=== PATIENT | male | born 1955 | race Caucasian/White ===

== ENCOUNTER 2020-02-24 12:13 | Inpatient (IN) | payer MEDICARE, OTHER ==
[2020-02-24] MEDS ORDERED: SODIUM CHLORIDE 0.9% 1,000 ML IV STA (12:56)
[2020-02-24] MEDS ORDERED: ONDANSETRON 4 MG/2 ML VIAL IVP STA (12:56)
[2020-02-24 13:30] LABS: Anisocytosis Slight; Basophils # (A) 0.1 k/uL (0-0.2); Basophils % (A) 1 %; Eosinophils # (A) 0.1 k/uL (0-0.7); Eosinophils % (A) 1 %; HCT 39.4 % (39.0-53.0); HGB 12.9 gm/dL (13.0-17.5); Lymphocytes % (A) 13 %; MCH 27.8 pg (25.0-35.0); MCHC 32.8 g/dL (31.0-37.0); MCV 84.7 fL (80.0-100.0); Mean Platelet Volume 8.9; Monocytes # (A) 0.3 k/uL (0-1.0); Monocytes % (A) 4 %; Neutrophils # (A) 6.3 k/uL (1.3-7.7); Neutrophils % (A) 81 %; Platelet Count 195 k/uL (150-450); RBC 4.65 m/uL (4.30-5.90); RDW 17.2 % (11.5-15.5); WBC 7.8 k/uL (3.8-10.6)
--- NOTE | 2020-02-24 13:37 | ED ---
Weakness HPI - General Chief complaint: Weakness Stated complaint: SOB/weak/not eating Time Seen by Provider: 02/24/20 12:15 Source: patient, family Mode of arrival: wheelchair Limitations: no limitations - History of Present Illness Initial comments: Patient is a 65-year-old male past medical history of hypertension who presents to the emergency department with reported weakness and anorexia. Patient states that he has not ate anything in 2 weeks. He's had a lack of appetite. Reports that every time he attempts to eat something, he feels nauseated and stops. He has been able to drink fluids and hold them down. Reports to minimal epigastric abdominal pain. No fevers or chills. Denies cough or hemoptysis. Denies chest pain or shortness of breath. Patient is a smoker. Reports that drinking twice a week. Patient does have a change to his voice. Patient states that this is new and he has never been scoped however review of the patient's chart demonstrates that he has a paralyzed vocal cord and has had an endoscopy. Patient also denies colonoscopy. Denies any rectal bleeding. Has had significant weight loss. No other alleviating, precipitating or modifying factors - Related Data Home Medications Medication Instructions Recorded Confirmed Omeprazole Magnesium [PriLOSEC OTC] 20 mg PO DAILY 02/24/20 02/24/20 Allergies Allergy/AdvReac Type Severity Reaction Status Date / Time No Known Allergies Allergy Verified 02/24/20 13:00 Review of Systems ROS Statement: Those systems with pertinent positive or pertinent negative responses have been documented in the HPI. ROS Other: All systems not noted in ROS Statement are negative. Past Medical History Past Medical History: Cancer, GERD/Reflux, Hypertension, Pneumonia Additional Past Medical History / Comment(s): paralyzed vocal cord, SKIN CANCER(FACE) History of Any Multi-Drug Resistant Organisms: None Reported Past Surgical History: Orthopedic Surgery Additional Past Surgical History / Comment(s): endoscopy, LT KNEE SCOPE, LT KNEE MENISCUS SX Past Anesthesia/Blood Transfusion Reactions: No Reported Reaction Past Psychological History: Anxiety Smoking Status: Current every day smoker Past Alcohol Use History: Occasional Past Drug Use History: None Reported - Past Family History Father Family Medical History: Congestive Heart Failure (CHF), Myocardial Infarction (IN) Mother Family Medical History: No Reported History Additional Family Medical History / Comment(s): MOM IS IN GOOD HEALTH AT AGE 85 General Exam Limitations: no limitations General appearance: alert, in no apparent distress, cachectic Head exam: Present: atraumatic, normocephalic Eye exam: Present: normal appearance, PERRL, EOMI. Absent: scleral icterus, conjunctival injection, periorbital swelling ENT exam: Present: normal exam, mucous membranes moist Neck exam: Present: normal inspection. Absent: tenderness, meningismus, lymphadenopathy Respiratory exam: Present: normal lung sounds bilaterally. Absent: respiratory distress, wheezes, rales, rhonchi, stridor Cardiovascular Exam: Present: regular rate, normal rhythm, normal heart sounds. Absent: systolic murmur, diastolic murmur, rubs, gallop, clicks GI/Abdominal exam: Present: soft, normal bowel sounds. Absent: distended, tenderness, guarding, rebound, rigid Extremities exam: Present: normal inspection, full ROM, normal capillary refill. Absent: tenderness, pedal edema, joint swelling, calf tenderness Back exam: Present: normal inspection Neurological exam: Present: alert, oriented X3, CN II-XII intact Psychiatric exam: Present: flat affect Skin exam: Present: warm, dry, intact, normal color, other (ecchymosis bilalteral dorsal forearms in differents stages of healing. ). Absent: rash Course Vital Signs 02/24/20 02/24/20 02/24/20 12:14 12:26 12:28 Temperature Pulse Rate 95 76 Pulse Rate [ Right Brachial] Respiratory 16 20 30 H Rate Blood Pressure 153/99 O2 Sat by Pulse 100 99 Oximetry 02/24/20 02/24/20 02/24/20 12:30 13:00 13:30 Temperature Pulse Rate 71 70 Pulse Rate [ Right Brachial] Respiratory 16 16 16 Rate Blood Pressure 171/106 163/95 O2 Sat by Pulse 100 99 99 Oximetry 02/24/20 02/24/20 02/24/20 14:00 14:30 15:00 Temperature Pulse Rate 69 69 70 Pulse Rate [ Right Brachial] Respiratory 16 16 16 Rate Blood Pressure 164/102 187/104 O2 Sat by Pulse 98 97 100 Oximetry 02/24/20 02/24/20 02/24/20 15:32 16:00 16:15 Temperature 97.7 F Pulse Rate 70 Pulse Rate [ 67 Right Brachial] Respiratory 18 18 Rate Blood Pressure 201/101 O2 Sat by Pulse 100 Oximetry 02/24/20 16:55 Temperature Pulse Rate Pulse Rate [ Right Brachial] Respiratory Rate Blood Pressure 172/87 O2 Sat by Pulse 100 Oximetry EKG Findings - EKG Comments: EKG Findings:: EKG demonstrates normal sinus rhythm with a ventricular rate 77. IA interval 144. QRS 88. QTC of 468. No acute ST segment elevations. Some ST depression in leads 2, 3, aVF as well as V4 through V6 Medical Decision Making - Medical Decision Making Upon arrival the patient is placed into room 1. A thorough history and physical exam was performed. Peripheral IV is established. Laboratory studies were conducted. The patient was given a liter bolus of normal saline followed by 75 mL per hour. Laboratory studies demonstrated a lactic acid 2.6. Sodium is 125. Potassium 3.2. Magnesium of 1.4. Potassium and magnesium are placed. Patient was sent for a chest x-ray which demonstrates spiculated right upper lobe nodule . Because of this the patient was sent over for a CT of his chest abdomen and pelvis which does demonstrate a suspicious spicula and right upper lobe nodule with and an additional smaller suspicious spicula did right upper lobe nodule. This resulted the patient. I did recommend admission for hydration and evaluation by pulmonology for which the patient did agree to. I discussed the case with Dr. Santoyo requested that Dr. Díaz be placed on consult. Patient was then transported to the floor in stable condition - Lab Data Result diagrams: 02/26/20 05:36 02/26/20 05:36 Lab Results 02/24/20 02/24/20 02/24/20 Range/Units 13:15 13:15 13:15 WBC 7.8 (3.8-10.6) k/uL RBC 4.65 (4.30-5.90) m/uL Hgb 12.9 L (13.0-17.5) gm/dL Hct 39.4 (39.0-53.0) % MCV 84.7 (80.0-100.0) fL MCH 27.8 (25.0-35.0) pg MCHC 32.8 (31.0-37.0) g/dL RDW 17.2 H (11.5-15.5) % Plt Count 195 (150-450) k/uL Neutrophils % 81 % Lymphocytes % 13 % Monocytes % 4 % Eosinophils % 1 % Basophils % 1 % Neutrophils # 6.3 (1.3-7.7) k/uL Lymphocytes # 1.0 (1.0-4.8) k/uL Monocytes # 0.3 (0-1.0) k/uL Eosinophils # 0.1 (0-0.7) k/uL Basophils # 0.1 (0-0.2) k/uL Anisocytosis Slight ESR (0-15) mm/hr PT 14.3 H (9.0-12.0) sec INR 1.4 H (<1.2) APTT 28.7 (22.0-30.0) sec Sodium (137-145) mmol/L Potassium (3.5-5.1) mmol/L Chloride (98-107) mmol/L Carbon Dioxide (22-30) mmol/L Anion Gap mmol/L BUN (9-20) mg/dL Creatinine (0.66-1.25) mg/dL Est GFR (CKD-EPI)AfAm (>60 ml/min/1.73 sqM) Est GFR (CKD-EPI)NonAf (>60 ml/min/1.73 sqM) Glucose (74-99) mg/dL Lactic Ac Sepsis Rflx Plasma Lactic Acid Ivan (0.7-2.0) mmol/L Calcium (8.4-10.2) mg/dL Magnesium (1.6-2.3) mg/dL Total Bilirubin (0.2-1.3) mg/dL AST (17-59) U/L ALT (4-49) U/L Alkaline Phosphatase (38-126) U/L Creatine Kinase (55-170) U/L Troponin I (0.000-0.034) ng/mL C-Reactive Protein (<10.0) mg/L NT-Pro-B Natriuret Pep pg/mL Total Protein (6.3-8.2) g/dL Albumin (3.5-5.0) g/dL Amylase (30-110) U/L Lipase (23-300) U/L TSH (0.465-4.680) mIU/L Urine Color Yellow Urine Appearance Clear (Clear) Urine pH 6.0 (5.0-8.0) Ur Specific [place] 1.050 H (1.001-1.035) Urine Protein Negative (Negative) Urine Glucose (UA) Negative (Negative) Urine Ketones 1+ H (Negative) Urine Blood Negative (Negative) Urine Nitrite Negative (Negative) Urine Bilirubin Negative (Negative) Urine Urobilinogen 4.0 (<2.0) mg/dL Ur Leukocyte Esterase Negative (Negative) 02/24/20 02/24/20 02/24/20 Range/Units 13:15 13:15 13:15 WBC (3.8-10.6) k/uL RBC (4.30-5.90) m/uL Hgb (13.0-17.5) gm/dL Hct (39.0-53.0) % MCV (80.0-100.0) fL MCH (25.0-35.0) pg MCHC (31.0-37.0) g/dL RDW (11.5-15.5) % Plt Count (150-450) k/uL Neutrophils % % Lymphocytes % % Monocytes % % Eosinophils % % Basophils % % Neutrophils # (1.3-7.7) k/uL Lymphocytes # (1.0-4.8) k/uL Monocytes # (0-1.0) k/uL Eosinophils # (0-0.7) k/uL Basophils # (0-0.2) k/uL Anisocytosis ESR (0-15) mm/hr PT (9.0-12.0) sec INR (<1.2) APTT (22.0-30.0) sec Sodium 125 L (137-145) mmol/L Potassium 3.2 L (3.5-5.1) mmol/L Chloride 96 L (98-107) mmol/L Carbon Dioxide 16 L (22-30) mmol/L Anion Gap 13 mmol/L BUN 13 (9-20) mg/dL Creatinine 0.85 (0.66-1.25) mg/dL Est GFR (CKD-EPI)AfAm >90 (>60 ml/min/1.73 sqM) Est GFR (CKD-EPI)NonAf >90 (>60 ml/min/1.73 sqM) Glucose 104 H (74-99) mg/dL Lactic Ac Sepsis Rflx Plasma Lactic Acid Ivan 2.6 H* (0.7-2.0) mmol/L Calcium 9.1 (8.4-10.2) mg/dL Magnesium 1.4 L (1.6-2.3) mg/dL Total Bilirubin 1.8 H (0.2-1.3) mg/dL AST 33 (17-59) U/L ALT 21 (4-49) U/L Alkaline Phosphatase 101 (38-126) U/L Creatine Kinase 38 L (55-170) U/L Troponin I 0.014 (0.000-0.034) ng/mL C-Reactive Protein (<10.0) mg/L NT-Pro-B Natriuret Pep pg/mL Total Protein 7.1 (6.3-8.2) g/dL Albumin 3.3 L (3.5-5.0) g/dL Amylase (30-110) U/L Lipase (23-300) U/L TSH 0.754 (0.465-4.680) mIU/L Urine Color Urine Appearance (Clear) Urine pH (5.0-8.0) Ur Specific [place] (1.001-1.035) Urine Protein (Negative) Urine Glucose (UA) (Negative) Urine Ketones (Negative) Urine Blood (Negative) Urine Nitrite (Negative) Urine Bilirubin (Negative) Urine Urobilinogen (<2.0) mg/dL Ur Leukocyte Esterase (Negative) 02/24/20 02/24/20 02/24/20 Range/Units 13:15 13:15 13:15 WBC (3.8-10.6) k/uL RBC (4.30-5.90) m/uL Hgb (13.0-17.5) gm/dL Hct (39.0-53.0) % MCV (80.0-100.0) fL MCH (25.0-35.0) pg MCHC (31.0-37.0) g/dL RDW (11.5-15.5) % Plt Count (150-450) k/uL Neutrophils % % Lymphocytes % % Monocytes % % Eosinophils % % Basophils % % Neutrophils # (1.3-7.7) k/uL Lymphocytes # (1.0-4.8) k/uL Monocytes # (0-1.0) k/uL Eosinophils # (0-0.7) k/uL Basophils # (0-0.2) k/uL Anisocytosis ESR 46 H (0-15) mm/hr PT (9.0-12.0) sec INR (<1.2) APTT (22.0-30.0) sec Sodium (137-145) mmol/L Potassium (3.5-5.1) mmol/L Chloride (98-107) mmol/L Carbon Dioxide (22-30) mmol/L Anion Gap mmol/L BUN (9-20) mg/dL Creatinine (0.66-1.25) mg/dL Est GFR (CKD-EPI)AfAm (>60 ml/min/1.73 sqM) Est GFR (CKD-EPI)NonAf (>60 ml/min/1.73 sqM) Glucose (74-99) mg/dL Lactic Ac Sepsis Rflx Plasma Lactic Acid Ivan (0.7-2.0) mmol/L Calcium (8.4-10.2) mg/dL Magnesium (1.6-2.3) mg/dL Total Bilirubin (0.2-1.3) mg/dL AST (17-59) U/L ALT (4-49) U/L Alkaline Phosphatase (38-126) U/L Creatine Kinase (55-170) U/L Troponin I (0.000-0.034) ng/mL C-Reactive Protein 32.1 H (<10.0) mg/L NT-Pro-B Natriuret Pep 2540 pg/mL Total Protein (6.3-8.2) g/dL Albumin (3.5-5.0) g/dL Amylase 71 (30-110) U/L Lipase 395 H (23-300) U/L TSH (0.465-4.680) mIU/L Urine Color Urine Appearance (Clear) Urine pH (5.0-8.0) Ur Specific [place] (1.001-1.035) Urine Protein (Negative) Urine Glucose (UA) (Negative) Urine Ketones (Negative) Urine Blood (Negative) Urine Nitrite (Negative) Urine Bilirubin (Negative) Urine Urobilinogen (<2.0) mg/dL Ur Leukocyte Esterase (Negative) 02/24/20 Range/Units 13:53 WBC (3.8-10.6) k/uL RBC (4.30-5.90) m/uL Hgb (13.0-17.5) gm/dL Hct (39.0-53.0) % MCV (80.0-100.0) fL MCH (25.0-35.0) pg MCHC (31.0-37.0) g/dL RDW (11.5-15.5) % Plt Count (150-450) k/uL Neutrophils % % Lymphocytes % % Monocytes % % Eosinophils % % Basophils % % Neutrophils # (1.3-7.7) k/uL Lymphocytes # (1.0-4.8) k/uL Monocytes # (0-1.0) k/uL Eosinophils # (0-0.7) k/uL Basophils # (0-0.2) k/uL Anisocytosis ESR (0-15) mm/hr PT (9.0-12.0) sec INR (<1.2) APTT (22.0-30.0) sec Sodium (137-145) mmol/L Potassium (3.5-5.1) mmol/L Chloride (98-107) mmol/L Carbon Dioxide (22-30) mmol/L Anion Gap mmol/L BUN (9-20) mg/dL Creatinine (0.66-1.25) mg/dL Est GFR (CKD-EPI)AfAm (>60 ml/min/1.73 sqM) Est GFR (CKD-EPI)NonAf (>60 ml/min/1.73 sqM) Glucose (74-99) mg/dL Lactic Ac Sepsis Rflx Y Plasma Lactic Acid Ivan (0.7-2.0) mmol/L Calcium (8.4-10.2) mg/dL Magnesium (1.6-2.3) mg/dL Total Bilirubin (0.2-1.3) mg/dL AST (17-59) U/L ALT (4-49) U/L Alkaline Phosphatase (38-126) U/L Creatine Kinase (55-170) U/L Troponin I (0.000-0.034) ng/mL C-Reactive Protein (<10.0) mg/L NT-Pro-B Natriuret Pep pg/mL Total Protein (6.3-8.2) g/dL Albumin (3.5-5.0) g/dL Amylase (30-110) U/L Lipase (23-300) U/L TSH (0.465-4.680) mIU/L Urine Color Urine Appearance (Clear) Urine pH (5.0-8.0) Ur Specific [place] (1.001-1.035) Urine Protein (Negative) Urine Glucose (UA) (Negative) Urine Ketones (Negative) Urine Blood (Negative) Urine Nitrite (Negative) Urine Bilirubin (Negative) Urine Urobilinogen (<2.0) mg/dL Ur Leukocyte Esterase (Negative) Disposition Clinical Impression: Hyponatremia, Hypokalemia, Hypomagnesemia, Weight loss, Anorexia Disposition: ADMITTED IP TO THIS [facility] Condition: Stable Is patient prescribed a controlled substance at d/c from ED?: No Decision to Admit Reason: Admit from EC Decision Date: 02/24/20 Decision Time: 14:42
[2020-02-24 13:40] LABS: ALT 21 U/L (4-49); AST 33 U/L (17-59); African American GFR (CKD) >90 (>60 ml/min/1.73 sqM); Albumin 3.3 g/dL (3.5-5.0); Alkaline Phosphatase 101 U/L (38-126); Anion Gap 13 mmol/L; Blood Urea Nitrogen 13 mg/dL (9-20); Calcium 9.1 mg/dL (8.4-10.2); Carbon Dioxide 16 mmol/L (22-30); Chloride 96 mmol/L (98-107); Creatine Kinase 38 U/L (55-170); Glucose 104 mg/dL (74-99); Magnesium 1.4 mg/dL (1.6-2.3); Non-African American GFR(CKD) >90 (>60 ml/min/1.73 sqM); Potassium 3.2 mmol/L (3.5-5.1); Sodium 125 mmol/L (137-145); Total Bilirubin 1.8 mg/dL (0.2-1.3); Total Protein 7.1 g/dL (6.3-8.2)
--- NOTE | 2020-02-24 13:48 | XR ---
EXAMINATION TYPE: XR chest 2V DATE OF EXAM: 02/24/2020 COMPARISON: Chest x-ray September 08, 2015 HISTORY: Weakness. TECHNIQUE: Frontal and lateral views of the chest are obtained. FINDINGS: There is background chronic emphysematous change redemonstrated. Suggestion of new focal s carlike opacity right upper lobe. No pleural effusion or pneumothorax seen bilaterally. The cardiac silhouette size is upper limits of normal. The osseous structures are demineralized. IMPRESSION: Chronic changes with possible new spiculated right upper lobe nodule. Nonemergent CT fol low-up is advised.
[2020-02-24 14:00] LABS: INR 1.4 (<1.2); Partial Thromboplastin Time 28.7 sec (22.0-30.0); Prothrombin Time 14.3 sec (9.0-12.0)
[2020-02-24] MEDS ORDERED: POTASSIUM CHLORIDE ER 20 MEQ TAB.ER PO STA (14:30)
[2020-02-24] MEDS ORDERED: MAGNESIUM SULFATE-D5W PMX 1 GM in DEXTROSE/WATER 1 100ML.BAG IVPB ONE (14:30)
--- NOTE | 2020-02-24 14:41 | CT ---
EXAMINATION TYPE: CT ChestAbdPelvis w con DATE OF EXAM: 02/24/2020 COMPARISON: Same day chest x-ray. HISTORY: Shortness of breath, weakness, weight loss, not eating, and nausea. CT DLP: 725.8 mGycm. Automated Exposure Control for Dose Reduction was Utilized. CONTRAST: CT scan of the thorax, abdomen and pelvis is performed without oral but with IV Contrast, patient inj ected with 100 mL of Isovue 300. FINDINGS: LUNGS: Corresponding to x-ray there is confirmation of 2.0 x 1.2 cm spiculated right upper lobe nodul e axial image 21. There is additional suspicious spiculated 7 x 6 mm posterior inferior right upper l obe nodule axial image 26 just above the fissure. There is suspicious spiculated 1.3 x 0.9 cm spicula lziet anterior inferior right upper lobe nodule axial image 36 just above minor fissure. Background mil d emphysematous change. No suspicious consolidation. No pleural effusion or pneumothorax. MEDIASTINUM: There are no greater than 1 cm hilar or mediastinal lymph nodes. No cardiomegaly or pe ricardial effusion is seen. Ectatic ascending aorta up to 3.6 cm in diameter axial image 38. Coronar y artery calcifications present which is noted marker for underlying coronary artery disease. LIVER/GB: Liver is heterogeneously hypodense consistent with marked fatty infiltration. A few thin-wa lled cysts in the hepatic dome left liver lobe flow present axial image 50 and 52. PANCREAS: No significant abnormality is seen. SPLEEN: No significant abnormality is seen. ADRENALS: Some thickening to both adrenal glands with slightly more suspicious right-sided 1.7 x 1.1 cm nodularity axial image 54, Hounsfield units average 20. KIDNEYS: Symmetric cortical medullary uptake and excretion without hydronephrosis seen bilaterally. BOWEL: Suboptimal evaluation bowel without enteric contrast. Stomach poorly distended and thus subopt imally evaluated. No suspicious small or large bowel dilatation. Sigmoid colonic diverticula without CT evidence for acute diverticulitis. GENITAL ORGANS: Upper limits of normal in size. LYMPH NODES: No greater than 1cm abdominal or pelvic lymph nodes are appreciated. OSSEOUS STRUCTURES: Underlying scoliotic curvature. There are suspected healing or healed anterolater al right fourth and fifth rib fractures on axial images 30 and 37 respectively. Similar healing or he aled lateral mid to lower rib fractures identified images 6 through 11 axial images 40, 45, 48, 58, a nd 60 along with 63 OTHER: Moderate to severe mixed plaque abdominal aorta extending into branch vessels. IMPRESSION: 1. Confirmation of suspicious spiculated right upper lobe nodule as suspected on x-ray. Additional sm aller suspicious spiculated right upper lobe nodules noted. Neoplasm cannot be excluded PET/CT follow -up advised. Nonspecific small right adrenal mass or nodule. 2. Healing or healed bilateral rib fractures, correlate clinically.
[2020-02-24] MEDS ORDERED: NALOXONE 0.4 MG/ML 1 ML VIAL IV PRN (14:42)
[2020-02-24] MEDS ORDERED: ONDANSETRON 4 MG/2 ML VIAL IVP PRN (14:42)
[2020-02-24] MEDS: SODIUM CHLORIDE 0.9% 1,000 ML IV SCH (15:41)
[2020-02-24] MEDS ORDERED: PNEUMOCOCCAL VACC-PNEUMOVAX 23 25 MCG/0.5 ML VIAL IM ONE (16:19)
[2020-02-24] MEDS ORDERED: hydrALAZINE HCL 20 MG/ML 1 ML VIAL IVP STA (16:29)
[2020-02-24 19:39] LABS: Appearance,Urine Clear (Clear); Bilirubin,Urine Negative (Negative); Blood,Urine Negative (Negative); Color,Urine Yellow; Glucose,Urine (UA) Negative (Negative); Ketones,Urine 1+ (Negative); Leukocyte Esterase,Urine Negative (Negative); Nitrite,Urine Negative (Negative); Protein,Urine Negative (Negative)
[2020-02-24] MEDS ORDERED: HYDROmorphone 0.5 MG/0.5 ML SYRINGE IVP PRN (21:10)
[2020-02-24] MEDS ORDERED: HYDROcodone/APAP 5-325MG 1 EACH TAB PO PRN (21:10)
[2020-02-24] MEDS ORDERED: ALPRAZolam 0.25 MG TAB PO PRN (21:10)
[2020-02-24] MEDS: CALCIUM CARBONATE 500 MG CHEWABLE PO SCH (22:20)
[2020-02-24 22:26] LABS: C Reactive Protein 32.1 mg/L (<10.0)
--- NOTE | 2020-02-25 00:22 | HP ---
HISTORY AND PHYSICAL DATE OF SERVICE: 02/24/2020 CHIEF COMPLAINT: Weakness. 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 The patient apparently was not eating for several days and the patient had weakness and anorexia. The patient lost significant amount of weight and the patient was taken to [facility] and admitted for further evaluation and treatment. The patient had nausea on trying to eat. The patient was found to be extremely emaciated and multiple evaluations including chest x-ray and the chest, abdomen and pelvis CAT scan showed suspicious spiculated right upper lobe nodule and spiculated right upper lobe nodule was noted. Healed bilateral rib fractures also noted. There is no history of any fever, rigors. No history of headache, loss of consciousness, seizures at this time. PAST MEDICAL HISTORY: History of cancer, GERD, hypertension, pneumonia, paralyzed vocal cord, history of anxiety. MEDICATIONS: Medications prior to admission include omeprazole. ALLERGIES: None. FAMILY HISTORY: History of CHF, myocardial infarction in the family. SOCIAL HISTORY: History of smoking. History of alcohol intake. REVIEW OF SYSTEMS: ENT: No diminished hearing or diminished vision. CARDIOVASCULAR SYSTEM: No angina. RESPIRATORY SYSTEM: As mentioned earlier. GI: As mentioned earlier. : No dysuria. NERVOUS SYSTEM: No numbness or weakness. ALLERGY/IMMUNOLOGY: No asthma or hayfever. MUSCULOSKELETAL: As mentioned earlier. HEMATOLOGY/ONCOLOGY: No history of anemia. ENDOCRINE: No history of diabetes or hypothyroidism. CONSTITUTIONAL: As mentioned earlier. DERMATOLOGY: Negative. RHEUMATOLOGY: Negative. PSYCHIATRY: As mentioned earlier. PHYSICAL EXAMINATION: The patient is alert and oriented x3. Pulse 67, blood pressure 131/80, respiration 18, temperature 97.7, pulse ox 100% on room air. HEENT: Conjunctivae normal. NECK: No jugular venous distention. CARDIOVASCULAR: S1, S2 muffled. RESPIRATORY: Breath sounds diminished at the bases. A few scattered rhonchi and crackles. ABDOMEN: Soft. Nontender. LEGS: No edema. No swelling. NERVOUS SYSTEM: Diffusely emaciated. SKIN: No ulcer, rash or bleeding. JOINTS: No active deforming arthropathy. LABS: WBC 7.8, hemoglobin 12.9. INR 1.4. Sodium 125, potassium 3.2. Plasma lactic acid 2.6. ASSESSMENT: 1. Anorexia, weight loss and diffuse weakness, rule out malignancy. 2. Hyponatremia. 3. Hypokalemia. 4. Severe dehydration. 5. Elevated lactic acid. 6. Elevated bilirubin. 7. Hypomagnesemia. 8. Anemia, normocytic, probably nutritional origin. 9. Possibly right upper lobe spiculated nodule, rule out primary or metastatic malignancy. 10.History of gastroesophageal reflux disease. 11.Hypertension. 12.History of pneumonia. 13.History of paralyzed vocal cord. 14.History of skin cancer, face. 15.History of anxiety. 16.History of nicotine dependence. 17.FULL CODE. RECOMMENDATIONS AND DISCUSSION: This 65-year-old gentleman presented with multiple complex medical issues, we will monitor the patient closely. Continue the current medications. Continue symptomatic treatment. Otherwise at this time I would obtain pulmonary and as well as gastroenterology consultation for evaluation including bronchoscopy or biopsies. Otherwise, overall prognosis extremely guarded because of multiple complex medical issues. Further recommendations to follow. I also recommend the patient to follow up with primary physician in the outpatient setting. DVT prophylaxis. Symptomatic treatment also will be provided. MMODL / IJN: [id number] /
[2020-02-25] MEDS ORDERED: NALOXONE 0.4 MG/ML 1 ML VIAL IV PRN (02:08)
[2020-02-25] MEDS ORDERED: ONDANSETRON 4 MG/2 ML VIAL IVP PRN (02:09)
[2020-02-25] MEDS: SODIUM CHLORIDE 0.9% 1,000 ML IV SCH ×2 (05:55→19:19)
[2020-02-25 06:47] LABS: Anisocytosis Slight; Basophils % (A) 1 %; Eosinophils # (A) 0.1 k/uL (0-0.7); Eosinophils % (A) 1 %; HCT 33.7 % (39.0-53.0); Lymphocytes # (A) 1.3 k/uL (1.0-4.8); Lymphocytes % (A) 19 %; MCH 27.6 pg (25.0-35.0); MCHC 32.7 g/dL (31.0-37.0); MCV 84.5 fL (80.0-100.0); Mean Platelet Volume 8.4; Monocytes # (A) 0.3 k/uL (0-1.0); Monocytes % (A) 5 %; Neutrophils # (A) 4.8 k/uL (1.3-7.7); Neutrophils % (A) 73 %; Platelet Count 156 k/uL (150-450); RBC 3.99 m/uL (4.30-5.90); RDW 17.3 % (11.5-15.5); WBC 6.6 k/uL (3.8-10.6)
[2020-02-25] MEDS: NICOTINE 14MG/24HR PATCH TRANSDERM SCH (09:02)
[2020-02-25] MEDS: HEPARIN SODIUM,PORCINE 5,000 UNIT/ML 1 ML VIAL SQ SCH ×2 (09:02→21:19)
[2020-02-25 10:00] LABS: African American GFR (CKD) 122.3 (60.0-200.0); Anion Gap 12.2 mmol/L (4.00-12.00); BUN/Creat Ratio 16.67 Ratio (12.00-20.00); Calcium 8.3 mg/dL (8.7-10.3); Carbon Dioxide 15.8 mmol/L (21.6-31.8); Non-African American GFR(CKD) 105.5 (60.0-200.0); Potassium 3.4 mmol/L (3.5-5.5)
--- NOTE | 2020-02-25 11:30 | P.CONS ---
History of Present Illness - Reason for Consult Consult date: 02/25/20 CT with lung nodules, anorexia, weight loss Requesting physician: Corwin Santoyo - Chief Complaint Anorexia and weight loss - History of Present Illness Mr. Ryan is a 65-year-old male we've been asked to see in regards to rather sudden onset loss of appetite, early CT and weight loss. Patient states that his symptoms started about 2-3 weeks ago, associated with abdominal discomfort, was of a sudden onset, has persisted, denies any injury or illness prior. He denies fevers, chills, painful swallowing, difficulty swallowing, he states fluctuation in the consistency of his stool, denies black, bloody or mucus stool, he does have a history of smoking but denies shortness of breath, hemoptysis, new or unusual cough. No circulatory problems or significant cardiac history. He does have a history of EtOH when he was young, currently he drinks every other day. He is not in any pain while he is at rest Review of Systems 14 point review of systems is negative except as stated in HPI Past Medical History Past Medical History: Cancer, GERD/Reflux, Hypertension, Pneumonia Additional Past Medical History / Comment(s): paralyzed vocal cord, SKIN CANCER(FACE) History of Any Multi-Drug Resistant Organisms: None Reported Past Surgical History: Orthopedic Surgery Additional Past Surgical History / Comment(s): endoscopy, LT KNEE SCOPE, LT KNEE MENISCUS SX Past Anesthesia/Blood Transfusion Reactions: No Reported Reaction Past Psychological History: Anxiety Smoking Status: Current every day smoker Past Alcohol Use History: Occasional Past Drug Use History: None Reported - Past Family History Father Family Medical History: Congestive Heart Failure (CHF), Myocardial Infarction ([place]) Additional Family Medical History / Comment(s): Father at the age of 73 from "heart problems." Pt unsure what type of heart problems. Mother Family Medical History: No Reported History Additional Family Medical History / Comment(s): MOM IS IN GOOD HEALTH AT AGE 85 Medications and Allergies Home Medications Medication Instructions Recorded Confirmed Type Omeprazole Magnesium [PriLOSEC OTC] 20 mg PO DAILY 02/24/20 02/24/20 History Allergies Allergy/AdvReac Type Severity Reaction Status Date / Time No Known Allergies Allergy Verified 02/24/20 13:00 Physical Exam Vitals: Vital Signs Temp Pulse Pulse Pulse Resp BP BP 02/25/20 04:58 98 F 78 19 156/72 02/24/20 21:19 97.7 F 54 L 16 136/86 02/24/20 17:36 67 18 131/80 02/24/20 16:55 172/87 02/24/20 16:15 201/101 02/24/20 16:00 67 18 02/24/20 15:32 97.7 F 70 18 02/24/20 15:00 70 16 187/104 02/24/20 14:30 69 16 164/102 02/24/20 14:00 69 16 02/24/20 13:30 16 163/95 02/24/20 13:00 70 16 171/106 02/24/20 12:30 71 16 02/24/20 12:28 76 30 H 02/24/20 12:26 20 02/24/20 12:14 95 16 153/99 Pulse Ox 02/25/20 04:58 100 02/24/20 21:19 100 02/24/20 17:36 100 02/24/20 16:55 100 02/24/20 16:15 02/24/20 16:00 02/24/20 15:32 100 02/24/20 15:00 100 02/24/20 14:30 97 02/24/20 14:00 98 02/24/20 13:30 99 02/24/20 13:00 99 02/24/20 12:30 100 02/24/20 12:28 99 02/24/20 12:26 02/24/20 12:14 100 Intake and Output 02/24/20 02/25/20 02/25/20 22:59 06:59 14:59 Intake Total 120 Balance 120 Intake: Oral 120 Other: Voiding Method Urinal Urinal Urinal # Voids 1 0 Weight 71.668 kg - Constitutional Looks much older than stated age General appearance: cooperative, no acute distress, thin - EENT Eyes: anicteric sclerae, EOMI ENT: hearing grossly normal, normal oropharynx - Neck Neck: no lymphadenopathy - Respiratory Respiratory: bilateral: CTA - Cardiovascular Rhythm: regular Heart sounds: normal: S1, S2 Abnormal Heart Sounds: no systolic murmur, no diastolic murmur, no rub, no S3 Ga llop, no S4 Gallop, no click, no other leg Peripheral Edema: bilateral: None - Gastrointestinal Pain with palpation of the abdomen is more when touching the inferior aspect of the rib cage on both sides General gastrointestinal: no absent bowel sounds, no decreased bowel sounds, no distended, no hepatomegaly, no hyperactive bowel sounds, normal bowel sounds, no organomegaly, no rigid, no scaphoid, soft, no splenomegaly, no tenderness, no umbilical hernia, no ventral hernia - Neurologic Neurologic: CNII-XII intact - Musculoskeletal Musculoskeletal: generalized weakness - Psychiatric Psychiatric: A&O x's 3, appropriate affect, intact judgment & insight Results CBC & Chem 7: 02/25/20 06:08 02/25/20 06:08 Labs: Abnormal Lab Results - Last 24 Hours (Table) 02/24/20 02/24/20 02/24/20 Range/Units 13:15 13:15 13:15 RBC (4.30-5.90) m/uL Hgb 12.9 L (13.0-17.5) gm/dL Hct (39.0-53.0) % RDW 17.2 H (11.5-15.5) % ESR (0-15) mm/hr PT 14.3 H (9.0-12.0) sec INR 1.4 H (<1.2) Sodium (137-145) mmol/L Potassium (3.5-5.1) mmol/L Chloride (98-107) mmol/L Carbon Dioxide (22-30) mmol/L Anion Gap (4.00-12.00) mmol/L Glucose (74-99) mg/dL Plasma Lactic Acid Ivan (0.7-2.0) mmol/L Calcium (8.7-10.3) mg/dL Magnesium (1.6-2.3) mg/dL Total Bilirubin (0.2-1.3) mg/dL Creatine Kinase (55-170) U/L C-Reactive Protein (<10.0) mg/L Albumin (3.5-5.0) g/dL Lipase (23-300) U/L Ur Specific [place] 1.050 H (1.001-1.035) Urine Ketones 1+ H (Negative) 02/24/20 02/24/20 02/24/20 Range/Units 13:15 13:15 13:15 RBC (4.30-5.90) m/uL Hgb (13.0-17.5) gm/dL Hct (39.0-53.0) % RDW (11.5-15.5) % ESR 46 H (0-15) mm/hr PT (9.0-12.0) sec INR (<1.2) Sodium 125 L (137-145) mmol/L Potassium 3.2 L (3.5-5.1) mmol/L Chloride 96 L (98-107) mmol/L Carbon Dioxide 16 L (22-30) mmol/L Anion Gap (4.00-12.00) mmol/L Glucose 104 H (74-99) mg/dL Plasma Lactic Acid Ivan 2.6 H* (0.7-2.0) mmol/L Calcium (8.7-10.3) mg/dL Magnesium 1.4 L (1.6-2.3) mg/dL Total Bilirubin 1.8 H (0.2-1.3) mg/dL Creatine Kinase 38 L (55-170) U/L C-Reactive Protein (<10.0) mg/L Albumin 3.3 L (3.5-5.0) g/dL Lipase (23-300) U/L Ur Specific [place] (1.001-1.035) Urine Ketones (Negative) 02/24/20 02/25/20 02/25/20 Range/Units 13:15 06:08 06:08 RBC 3.99 L (4.30-5.90) m/uL Hgb 11.0 L (13.0-17.5) gm/dL Hct 33.7 L (39.0-53.0) % RDW 17.3 H (11.5-15.5) % ESR (0-15) mm/hr PT (9.0-12.0) sec INR (<1.2) Sodium 129 L (137-145) mmol/L Potassium 3.4 L (3.5-5.1) mmol/L Chloride (98-107) mmol/L Carbon Dioxide 15.8 L (22-30) mmol/L Anion Gap 12.20 H (4.00-12.00) mmol/L Glucose (74-99) mg/dL Plasma Lactic Acid Ivan (0.7-2.0) mmol/L Calcium 8.3 L (8.7-10.3) mg/dL Magnesium (1.6-2.3) mg/dL Total Bilirubin (0.2-1.3) mg/dL Creatine Kinase (55-170) U/L C-Reactive Protein 32.1 H (<10.0) mg/L Albumin (3.5-5.0) g/dL Lipase 395 H (23-300) U/L Ur Specific [place] (1.001-1.035) Urine Ketones (Negative) CT scan - abdomen: report reviewed CT scan - chest: report reviewed CT scan - pelvis: report reviewed Assessment and Plan (1) Anorexia Current Visit: Yes Status: Acute Priority: High Code(s): R63.0 - ANOREXIA SNOMED Code(s): 27827295 (2) Weight loss Current Visit: Yes Status: Acute Priority: High Code(s): R63.4 - ABNORMAL WEIGHT LOSS SNOMED Code(s): 15347912 (3) Pulmonary nodule Current Visit: Yes Status: Acute Code(s): R91.1 - SOLITARY PULMONARY NODULE SNOMED Code(s): 641978250 (4) Adrenal nodule Current Visit: Yes Status: Acute Priority: High Code(s): E27.8 - OTHER SPECIFIED DISORDERS OF ADRENAL GLAND SNOMED Code(s): 455816416 Plan: Unclear at this time what the origin of patient's sudden onset gastrointestinal symptoms. Typically with malignancy the onset is more insidious. Agree with the Pulmonary consult. Abnormal bone findings-NM bone scan ordered. PSA ordered. Plan for PET scan outpatient to further evaluate lung and adrenal nodules. Doctor attests: I performed a history and physical examination of this patient, developed impression and plan of care. Discussed with dictator. I agree with dictators note, documented as a scribe.
[2020-02-25 14:40] LABS: Albumin 2.9 g/dL (3.80-4.90); Albumin/Globulin Ratio 1.04 (1.60-3.17); Bilirubin, Conjugated 0.6 mg/dL (0.20-0.40); Bilirubin,Unconjugated 0.7 mg/dL; Globulin 2.8 g/dL (1.6-3.3); Total Bilirubin 1.3 mg/dL (0.3-1.2); Total Protein 5.7 g/dL (6.2-8.2)
[2020-02-25] MEDS ORDERED: POTASSIUM CHLORIDE ER 20 MEQ TAB.ER PO STA (15:11)
--- NOTE | 2020-02-25 15:12 | P.GSCN ---
<Jennifer Hooker - Last Filed: 02/25/20 14:52> History of Present Illness Consult date: 02/25/20 History of present illness: CHIEF COMPLAINT: Weakness and not eating HISTORY OF PRESENT ILLNESS: This is a 65-year-old male with a known history of GERD, hypertension, nicotine dependence and paralyzed vocal cords. Patient presents to the emergency room with generalized weakness and anorexia for 2 weeks. Patient has not been able to eat anything. Every times he tries to eat he feels nauseated and stops. He is able to drink some fluids. He complains of epigastric abdominal pain. Denies any vomiting. Denies any change in bowel habits. Denies ever having an EGD or colonoscopy. He denies any difficulty with swallowing or pain with swallowing. Patient had computed tomography scan of the chest abdomen and pelvis report states suspicious spiculated right upper lobe nodule. Additional smaller suspicious spiculated right upper lobe nodules noted. Neoplasm cannot be excluded. Nonspecific small right adrenal mass or nodule. Healing or healed bilateral rib fractures. Patient is also being evaluated by oncology who have ordered a bone scan. PAST MEDICAL HISTORY: See list. PAST SURGICAL HISTORY: See list. MEDICATIONS: See list. ALLERGIES: See list. SOCIAL HISTORY: No illicit drug use. REVIEW OF SYSTEMS: CONSTITUTIONAL: Denies fever or chills. HEENT: Denies blurred vision, vision changes, or eye pain. Denies hemoptysis CARDIOVASCULAR: Denies chest pain or pressure. RESPIRATORY: No shortness of breath. GASTROINTESTINAL: See HPI for pertinent findings HEMATOLOGIC: Denies bleeding disorders. GENITOURINARY: Denies any blood in urine or increased urinary frequency. SKIN: Denies pruitis. Denies rash. PHYSICAL EXAM: VITAL SIGNS: Reviewed GENERAL: in no acute distress. Patient looks much older than stated age. HEENT: No sclera icterus. Extraocular movements grossly intact. Moist buccal mucosa. Head is atraumatic, normocephalic. No nasal drainage. ABDOMEN: Soft. Epigastric tenderness with palpation. nondistended NEUROLOGIC: Alert and oriented. Cranial nerves II through XII grossly intact. LABORATORY DATA: WBC 6.6 hemoglobin 11.0 platelets 156 sodium 129 potassium 3.4 creatinine 0.6. lactic acid 2.6 down to 1.3. magnesium 1.4 Total bilirubin 1.3 AST 30 ALT 21 lipase 395 IMAGING: CT chest abdomen and pelvis states suspicious spiculated right upper lobe nodule. Additional smaller suspicious spiculated right upper lobe nodules noted. Neoplasm cannot be excluded. Nonspecific small right adrenal mass or nodule. Healing or healed bilateral rib fractures. ASSESSMENT: 1. Anorexia, diffuse weakness and nausea 2. Epigastric abdominal pain 3. Right upper lobe pulmonary nodules and adrenal nodule 4. History of nicotine dependence 5. Hypomagnesemia and hypokalemia PLAN: -Agree with oncology and pulmonary consults -Further recommendations forthcoming from surgeon Physician Exhibit Artist note has been reviewed by physician. Signing provider agrees with the documented findings, assessment, and plan of care. Past Medical History Past Medical History: Cancer, GERD/Reflux, Hypertension, Pneumonia Additional Past Medical History / Comment(s): paralyzed vocal cord, SKIN CANCER(FACE) History of Any Multi-Drug Resistant Organisms: None Reported Past Surgical History: Orthopedic Surgery Additional Past Surgical History / Comment(s): endoscopy, LT KNEE SCOPE, LT KNEE MENISCUS SX Past Anesthesia/Blood Transfusion Reactions: No Reported Reaction Past Psychological History: Anxiety Smoking Status: Current every day smoker Past Alcohol Use History: Occasional Past Drug Use History: None Reported - Past Family History Father Family Medical History: Congestive Heart Failure (CHF), Myocardial Infarction ([place]) Additional Family Medical History / Comment(s): Father at the age of 73 f rom "heart problems." Pt unsure what type of heart problems. Mother Family Medical History: No Reported History Additional Family Medical History / Comment(s): MOM IS IN GOOD HEALTH AT AGE 85 Medications and Allergies Home Medications Medication Instructions Recorded Confirmed Type Omeprazole Magnesium [PriLOSEC OTC] 20 mg PO DAILY 02/24/20 02/24/20 History Allergies Allergy/AdvReac Type Severity Reaction Status Date / Time No Known Allergies Allergy Verified 02/24/20 13:00 Surgical - Exam Vital Signs Pulse Resp BP Pulse Ox 95 16 153/99 100 02/24/20 12:14 02/24/20 12:14 02/24/20 12:14 02/24/20 12:14 Results - Labs 02/25/20 06:08 02/25/20 06:08 Abnormal Lab Results - Last 24 Hours (Table) 02/24/20 02/24/20 02/24/20 Range/Units 13:15 13:15 13:15 RBC (4.30-5.90) m/uL Hgb (13.0-17.5) gm/dL Hct (39.0-53.0) % RDW (11.5-15.5) % ESR 46 H (0-15) mm/hr Sodium (135-145) mmol/L Potassium (3.5-5.5) mmol/L Carbon Dioxide (21.6-31.8) mmol/L Anion Gap (4.00-12.00) mmol/L Calcium (8.7-10.3) mg/dL Total Bilirubin (0.3-1.2) mg/dL Conjugated Bilirubin (0.20-0.40) mg/dL C-Reactive Protein 32.1 H (<10.0) mg/L Total Protein (6.2-8.2) g/dL Albumin (3.80-4.90) g/dL Albumin/Globulin Ratio (1.60-3.17) g/dL Lipase 395 H (23-300) U/L Ur Specific [place] 1.050 H (1.001-1.035) Urine Ketones 1+ H (Negative) 02/25/20 02/25/20 02/25/20 Range/Units 06:08 06:08 06:08 RBC 3.99 L (4.30-5.90) m/uL Hgb 11.0 L (13.0-17.5) gm/dL Hct 33.7 L (39.0-53.0) % RDW 17.3 H (11.5-15.5) % ESR (0-15) mm/hr Sodium 129 L (135-145) mmol/L Potassium 3.4 L (3.5-5.5) mmol/L Carbon Dioxide 15.8 L (21.6-31.8) mmol/L Anion Gap 12.20 H (4.00-12.00) mmol/L Calcium 8.3 L (8.7-10.3) mg/dL Total Bilirubin 1.3 H (0.3-1.2) mg/dL Conjugated Bilirubin 0.60 H (0.20-0.40) mg/dL C-Reactive Protein (<10.0) mg/L Total Protein 5.7 L (6.2-8.2) g/dL Albumin 2.90 L (3.80-4.90) g/dL Albumin/Globulin Ratio 1.04 L (1.60-3.17) g/dL Lipase (23-300) U/L Ur Specific [place] (1.001-1.035) Urine Ketones (Negative) Diabetes panel 02/25/20 02/25/20 Range/Units 06:08 06:08 Sodium 129 L (135-145) mmol/L Potassium 3.4 L (3.5-5.5) mmol/L Chloride 101 (96-109) mmol/L Carbon Dioxide 15.8 L (21.6-31.8) mmol/L BUN 10.0 (9.0-27.0) mg/dL Creatinine 0.6 (0.6-1.5) mg/dL Glucose 83 (70-110) mg/dL Calcium 8.3 L (8.7-10.3) mg/dL AST 30 (14-35) U/L ALT 21 (10-49) U/L Alkaline Phosphatase 86 (41-126) U/L Total Protein 5.7 L (6.2-8.2) g/dL Albumin 2.90 L (3.80-4.90) g/dL Calcium panel 02/25/20 02/25/20 Range/Units 06:08 06:08 Calcium 8.3 L (8.7-10.3) mg/dL Albumin 2.90 L (3.80-4.90) g/dL Pituitary panel 02/25/20 Range/Units 06:08 Sodium 129 L (135-145) mmol/L Potassium 3.4 L (3.5-5.5) mmol/L Chloride 101 (96-109) mmol/L Carbon Dioxide 15.8 L (21.6-31.8) mmol/L BUN 10.0 (9.0-27.0) mg/dL Creatinine 0.6 (0.6-1.5) mg/dL Glucose 83 (70-110) mg/dL Calcium 8.3 L (8.7-10.3) mg/dL Adrenal panel 02/25/20 02/25/20 Range/Units 06:08 06:08 Sodium 129 L (135-145) mmol/L Potassium 3.4 L (3.5-5.5) mmol/L Chloride 101 (96-109) mmol/L Carbon Dioxide 15.8 L (21.6-31.8) mmol/L BUN 10.0 (9.0-27.0) mg/dL Creatinine 0.6 (0.6-1.5) mg/dL Glucose 83 (70-110) mg/dL Calcium 8.3 L (8.7-10.3) mg/dL Total Bilirubin 1.3 H (0.3-1.2) mg/dL AST 30 (14-35) U/L ALT 21 (10-49) U/L Alkaline Phosphatase 86 (41-126) U/L Total Protein 5.7 L (6.2-8.2) g/dL Albumin 2.90 L (3.80-4.90) g/dL <Mckay Matt - Last Filed: 02/25/20 20:31> History of Present Illness History of present illness: As above. Patient known to our service. Complaining of anorexia and some mild abdominal pain. Some nausea but no vomiting. Appetite significantly diminished over the last 3-4 weeks. CAT scan reviewed. Await further evaluation by oncology and pulmonary. We'll tentatively plan upper and lower endoscopy Wednesday 02/28. Surgical - Exam Vital Signs Pulse Resp BP Pulse Ox 95 16 153/99 100 02/24/20 12:14 02/24/20 12:14 02/24/20 12:14 02/24/20 12:14 Results - Labs 02/25/20 06:08 02/25/20 17:03 Abnormal Lab Results - Last 24 Hours (Table) 02/24/20 02/24/20 02/25/20 Range/Units 13:15 13:15 06:08 RBC (4.30-5.90) m/uL Hgb (13.0-17.5) gm/dL Hct (39.0-53.0) % RDW (11.5-15.5) % ESR 46 H (0-15) mm/hr Sodium 129 L (135-145) mmol/L Potassium 3.4 L (3.5-5.5) mmol/L Carbon Dioxide 15.8 L (21.6-31.8) mmol/L Anion Gap 12.20 H (4.00-12.00) mmol/L Calcium 8.3 L (8.7-10.3) mg/dL Total Bilirubin (0.3-1.2) mg/dL Conjugated Bilirubin (0.20-0.40) mg/dL C-Reactive Protein 32.1 H (<10.0) mg/L Total Protein (6.2-8.2) g/dL Albumin (3.80-4.90) g/dL Albumin/Globulin Ratio (1.60-3.17) g/dL Lipase 395 H (23-300) U/L 02/25/20 02/25/20 02/25/20 Range/Units 06:08 06:08 17:03 RBC 3.99 L (4.30-5.90) m/uL Hgb 11.0 L (13.0-17.5) gm/dL Hct 33.7 L (39.0-53.0) % RDW 17.3 H (11.5-15.5) % ESR (0-15) mm/hr Sodium 125 L (135-145) mmol/L Potassium (3.5-5.5) mmol/L Carbon Dioxide 16 L (21.6-31.8) mmol/L Anion Gap (4.00-12.00) mmol/L Calcium (8.7-10.3) mg/dL Total Bilirubin 1.3 H (0.3-1.2) mg/dL Conjugated Bilirubin 0.60 H (0.20-0.40) mg/dL C-Reactive Protein (<10.0) mg/L Total Protein 5.7 L (6.2-8.2) g/dL Albumin 2.90 L (3.80-4.90) g/dL Albumin/Globulin Ratio 1.04 L (1.60-3.17) g/dL Lipase (23-300) U/L Diabetes panel 02/25/20 02/25/20 02/25/20 Range/Units 06:08 06:08 17:03 Sodium 129 L 125 L (135-145) mmol/L Potassium 3.4 L 3.5 (3.5-5.5) mmol/L Chloride 101 104 (96-109) mmol/L Carbon Dioxide 15.8 L 16 L (21.6-31.8) mmol/L BUN 10.0 (9.0-27.0) mg/dL Creatinine 0.6 (0.6-1.5) mg/dL Glucose 83 (70-110) mg/dL Calcium 8.3 L (8.7-10.3) mg/dL AST 30 (14-35) U/L ALT 21 (10-49) U/L Alkaline Phosphatase 86 (41-126) U/L Total Protein 5.7 L (6.2-8.2) g/dL Albumin 2.90 L (3.80-4.90) g/dL Calcium panel 02/25/20 02/25/20 Range/Units 06:08 06:08 Calcium 8.3 L (8.7-10.3) mg/dL Albumin 2.90 L (3.80-4.90) g/dL Pituitary panel 02/25/20 02/25/20 Range/Units 06:08 17:03 Sodium 129 L 125 L (135-145) mmol/L Potassium 3.4 L 3.5 (3.5-5.5) mmol/L Chloride 101 104 (96-109) mmol/L Carbon Dioxide 15.8 L 16 L (21.6-31.8) mmol/L BUN 10.0 (9.0-27.0) mg/dL Creatinine 0.6 (0.6-1.5) mg/dL Glucose 83 (70-110) mg/dL Calcium 8.3 L (8.7-10.3) mg/dL Adrenal panel 02/25/20 02/25/20 02/25/20 Range/Units 06:08 06:08 17:03 Sodium 129 L 125 L (135-145) mmol/L Potassium 3.4 L 3.5 (3.5-5.5) mmol/L Chloride 101 104 (96-109) mmol/L Carbon Dioxide 15.8 L 16 L (21.6-31.8) mmol/L BUN 10.0 (9.0-27.0) mg/dL Creatinine 0.6 (0.6-1.5) mg/dL Glucose 83 (70-110) mg/dL Calcium 8.3 L (8.7-10.3) mg/dL Total Bilirubin 1.3 H (0.3-1.2) mg/dL AST 30 (14-35) U/L ALT 21 (10-49) U/L Alkaline Phosphatase 86 (41-126) U/L Total Protein 5.7 L (6.2-8.2) g/dL Albumin 2.90 L (3.80-4.90) g/dL
[2020-02-25 15:46] VITALS: BMI 25.4
[2020-02-25] MEDS ORDERED: Magnesium Replacement Protocol 1 EACH MISC MISCELLANE PRN (16:48)
[2020-02-25] MEDS ORDERED: Potassium Replacement Protocol 1 EACH MISC MISCELLANE PRN (16:48)
--- NOTE | 2020-02-25 16:57 | NM ---
EXAMINATION TYPE: NM bone scan whole body DATE OF EXAM: 02/25/2020 COMPARISON: NONE HISTORY: Delayed whole-body scanning was performed following the injection of 21.5 mCi Tc 99m MDP. Images acq uired 3 hours post injection. FINDINGS: There is focal increased uptake in the anterior aspect right fourth and fifth ribs. There is also foc al increased uptake at the costochondral junction of the anterior left third fourth and fifth and six th and seventh and eighth ribs. There is focal increased uptake in the posterior right 10th rib. Ther e is increased uptake at the medial aspect of both knee joints. There is increased uptake at the right foot first MP joint. The remainder of exam is unremarkable. IMPRESSION: Increased uptake in the ribs consistent with multiple rib fractures of uncertain age. Uptake at the knee joint and right foot related to arthritic disease. No evidence of osseous metastat ic disease.
[2020-02-25 17:39] LABS: Potassium 3.5 mmol/L (3.5-5.1)
--- NOTE | 2020-02-25 19:30 | PN ---
PROGRESS NOTE DATE OF SERVICE: 02/25/2020 This 65-year-old gentleman had severe weakness and emaciation. He was also suspected to have malignancy. Order was placed for the patient to have a bone scan. Multiple consultants are following the patient, including Hematology/Oncology. Surgery has seen the patient. The patient also had anorexia, diffuse weakness and nausea. Possible EGD is also being contemplated, per Dr. Matt. REVIEW OF SYSTEMS: CARDIOVASCULAR SYSTEM: No angina, palpitations. RESPIRATORY SYSTEM: As mentioned earlier. GI: As mentioned earlier. : No dysuria or retention. NERVOUS SYSTEM: No numbness, weakness. CURRENT MEDICATIONS: Reviewed. They include [place] 5 mg, Xanax, TUMS, heparin, Dilaudid, Narcan, Habitrol and Zofran. PHYSICAL EXAMINATION: Patient is alert and oriented x3. Pulse 67, blood pressure 132/89, respiration 17, temperature 97.3, pulse ox 100% on room air. HEENT: Conjunctivae normal. NECK: No jugular venous distention. CARDIOVASCULAR SYSTEM: S1, S2 muffled. RESPIRATORY SYSTEM: Breath sounds diminished at the bases. A few scattered rhonchi. No crackles. ABDOMEN: Soft, non-tender. LEGS: No edema. No swelling. NERVOUS SYSTEM: Diffusely weak. LABS/IMAGING: WBC 6.6, hemoglobin 11, sodium 129, potassium 3.4. Albumin is 2.9. CT scan of the abdomen and pelvis noted. ASSESSMENT: 1. Nausea, weight loss, diffuse weakness; rule out malignancy with metastases. .. 2. Hyponatremia. 3. Hypokalemia. 4. Severe dehydration, present on admission. 5. Elevated lactic acid. 6. Elevated bilirubin. 7. Hypomagnesemia. 8. Anemia, normocytic, probably nutritional in origin with possible right upper lobe spiculated nodule, possibly primary. Rule out metastatic malignancy. 9. Gastroesophageal reflux disease. 10.Hypertension. 11.History of pneumonia. 12.History of paralyzed vocal cord. 13.History of skin cancer of the face. 14.History of anxiety. 15.History of nicotine dependence. 16.FULL CODE. RECOMMENDATIONS AND DISCUSSION: I recommend to continue current medications, continue with the monitoring, symptomatic treatment. Will continue to monitor. Supplement potassium. Supplement magnesium. Closely follow with multiple consultants. Guarded prognosis because of multiple complex medical issues. Will order electrolytes also at this time. Bone scan report is awaited. Further recommendations to follow. MMODL / IJN: [id number] /
--- NOTE | 2020-02-25 20:03 | CONS ---
CONSULTATION DATE OF DICTATION: February 25, 2020. REASON FOR CONSULTATION: Decreased appetite, progressive weight loss, malnutrition. HISTORY OF PRESENT ILLNESS: The patient is a 65-year-old pleasant white male admitted to the hospital because of decreased appetite, not eating well for the last several weeks duration associated with anorexia and some weight loss. He does not know the amount of weight he has lost but overall not feeling well. He has not seen a physician recently. He denies any associated abdominal pain. No nausea, no vomiting. No rectal bleeding or melena. He came to the emergency room. He had a CT of the chest, abdomen and pelvis that showed some small suspicious spiculated right upper lobe nodule measuring about 2 cm in size and another one that was 1.5 cm in size and hence oncology has been consulted. The rest of the CT abdomen and pelvis was unremarkable. Patient has no prior history of EGD or colonoscopy in the past. PAST MEDICAL HISTORY: Significant for GERD, hypertension, anxiety, history of pneumonia in the past, skin cancer. MEDICATIONS: Omeprazole. ALLERGIES: None. SOCIAL HISTORY: Chronic smoker. Alcohol on a social basis. FAMILY HISTORY: Father congestive heart failure and myocardial infarction. Mother unremarkable. REVIEW OF SYSTEMS: CARDIOPULMONARY: No chest pain or shortness of breath. GENITOURINARY: No dysuria or hematuria. MUSCULOSKELETAL unremarkable. SKIN unremarkable. ENDOCRINE unremarkable. PSYCHIATRIC: Unremarkable. NEUROLOGY: Unremarkable. ENT: Vision unremarkable. CONSTITUTIONAL: Weight loss, but he does not state how much. No fever, chills or night sweats. PHYSICAL EXAMINATION: He appears comfortable. No apparent distress. Vital signs stable. Blood pressure 132/89. Pulse rate 67. HEENT examination unremarkable. Conjunctivae pink. Sclerae anicteric. Oral cavity no lesions. NECK no JVD or lymph node enlargement. CHEST was clear to auscultation. HEART: Regular rate and rhythm. ABDOMEN: Soft. Bowel sounds are positive. No organomegaly. EXTREMITIES: No pedal edema. NEUROLOGICAL: He is alert and oriented x3. No focal deficits. LABS: WBC 7.8, hemoglobin 12.9, platelets normal. Basic metabolic panel showed a sodium of 125, potassium 3.2, chloride 96. CO2 16. BUN and creatinine are normal. Plasma lactic acid 2.6. AST and ALT within normal limits. T bilirubin is 1.8 and alkaline phosphatase is 101. Lipase was slightly elevated at 395. Albumin is 3.3. IMPRESSION: 1. This is a patient with progressive weight loss and decreased appetite for the last several weeks duration with no other specific gastrointestinal symptoms. He does have occasional abdominal pain but no nausea, vomiting. No change in bowel habits. Never had any EGD or colonoscopy in the past. Recent CT of the chest, abdomen and pelvis showed some spiculated lesions in the lung. CT of the abdomen and pelvis was unremarkable. RECOMMENDATIONS: 1. Agree with oncology consultation. 2. I did recommend the patient to have an EGD and colonoscopy, but he requests Dr. Matt to perform this procedure. 3. We will discuss with Dr. Santoyo. 4. Monitor labs closely. Thank you for this consultation. MMODL / IJN: [id number] /
[2020-02-25] MEDS: CALCIUM CARBONATE 500 MG CHEWABLE PO SCH (21:19)
--- NOTE | 2020-02-25 21:41 | CONS ---
CONSULTATION PULMONARY/CRITICAL CARE CONSULTATION: DATE OF SERVICE: February 25, 2020. REASON FOR EVALUATION: Weakness and abnormal CT scan. HISTORY OF PRESENT ILLNESS: This is a 65-year-old male who apparently presents with complaints of weakness. He apparently has a vague history of hypertension. He states he has does not have a doctor and really does not take any medications at home. He apparently has not seen a doctor in years. In addition to being weak and fatigued, he has had decreased appetite, and about a 10 or 15 pounds weight loss. In addition, he mentions that he has new onset hoarseness. He apparently has not eaten anything in 2 weeks. Every time he eats, he apparently becomes nauseated and stops. He has been able to drink fluids and hold them down. He does report minimal epigastric abdominal pain. No fever, chills. Denies any cough or hemoptysis. Denies any chest pain or shortness of breath. He is a heavy smoker. He does drink twice a week. He does also mention the hoarseness, which is relatively new onset. Apparently, the physician who saw him in the emergency room reviewed his chart and previous notes and states that he has had a paralyzed vocal cord as determined by endoscopy. HOME MEDICATIONS: Apparently include over only [id number] Prilosec. ALLERGIES: Denied. MEDICAL HISTORY: Skin cancer, and a paralyzed vocal cord. There is also a vague history of hypertension, acid reflux disease, and pneumonia. PAST SURGICAL HISTORY: Is positive for endoscopy and evaluation of vocal cords, left knee meniscus surgery, left knee arthroscopy. SOCIAL HISTORY: Positive for current everyday tobacco use, occasional and social alcohol use, but without any illicit drug use. FAMILY HISTORY: Positive for father with congestive heart failure, myocardial infarction, mother is in good health. REVIEW OF SYSTEMS: CONSTITUTIONAL: Weakness, dehydration. NEUROLOGIC negative. HEENT negative. CARDIOVASCULAR negative. PULMONARY negative. GI nausea, decreased oral intake, particularly food. negative. RHEUMATOLOGIC negative. IMMUNOLOGIC negative. ENDOCRINOLOGIC negative. PHYSICAL EXAMINATION: VITAL SIGNS: Current vital signs are reviewed. Temperature is 97.8, heart rate 67, respiratory rate 17, blood pressure 132/89, mean blood pressure is 103 and room air saturation is 100%. GENERAL: Appears in no acute distress. Certainly no respiratory distress. The patient does look chronically ill. HEENT: Examination is grossly unremarkable. NECK: Supple. Full range of motion. No adenopathy, thyromegaly or neck vein distention. CARDIOVASCULAR: Examination reveals regular rhythm and rate. Heart rate 70 per minute. S1, S2 normal. LUNGS: Reveal clear breath sounds. No wheezes, rhonchi, or crackles. ABDOMEN: Soft. Bowel sounds are heard. EXTREMITIES are intact. No cyanosis, clubbing or edema. SKIN: Without rash. NEUROLOGIC: Examination is brief but nonfocal. LABS: Reviewed. White count 6.6, hemoglobin 11, hematocrit 33.7, platelet count 156,000. PT, INR were 14.3 and 1.4 respectively. PTT was normal. Sodium 129, potassium 3.4, chloride 101. CO2 was 16, anion gap was 12, BUN and creatinine were 10 and 0.6. Initial lactic acid 2.6. Reflux. Repeat lactic acid 1.3. Calcium 8.3, bilirubin 1.3. Liver function tests otherwise normal. Albumin 2.9, lipase 395. Urine was essentially negative. Chest x-ray shows a spiculated lesion right upper lobe. CT scan of the chest reveals a suspicious spiculated right upper lobe nodule. There is also a smaller nodule in the right upper lobe. The larger nodule measures 12 x 20 mm and smaller nodule measures 9 x 13 mm. The rest of the CT of the abdomen, pelvis, and other structures appeared to be normal. Medications are reviewed. Currently he is on Xanax, calcium carbonate, subcu heparin, [place], Dilaudid, Narcan, nicotine patch, Zofran, and saline IV. ASSESSMENT: 1. Rule out occult malignancy. 2. Two or three solitary pulmonary nodules, right lung, which may relate to metastatic disease and/or primary lung cancer. 3. History of chronic tobacco use. 4. History of gastroesophageal reflux disease. 5. History of skin cancer. 6. History of paralyzed vocal cord and chronic coarseness. 7. Vague history of hypertension. 8. Prior history of pneumonia. PLAN: The patient will certainly need a PET scan, if a primary lesion cannot be localized. The lesions in the lungs would be very difficult to biopsy. This is because of their size and location. Medical Oncology has seen the patient. We will await their recommendations. Overall prognosis remains guarded. The patient is counseled about the importance of smoking cessation. Nicotine patch would be helpful. Currently, the patient does not have any pulmonary complaints. Additional recommendations and suggestions are forthcoming. Prognosis is guarded. MMODL / IJN: [id number] /
[2020-02-26] MEDS: SODIUM CHLORIDE 0.9% 1,000 ML IV SCH ×2 (05:15→23:19)
[2020-02-26 06:16] LABS: Anisocytosis Slight; Basophils % (A) 1 %; Eosinophils # (A) 0.1 k/uL (0-0.7); Eosinophils % (A) 1 %; HCT 29.1 % (39.0-53.0); Lymphocytes # (A) 1.1 k/uL (1.0-4.8); Lymphocytes % (A) 28 %; MCH 27.9 pg (25.0-35.0); MCHC 32.6 g/dL (31.0-37.0); MCV 85.4 fL (80.0-100.0); Mean Platelet Volume 8.4; Monocytes # (A) 0.2 k/uL (0-1.0); Monocytes % (A) 5 %; Neutrophils # (A) 2.5 k/uL (1.3-7.7); Neutrophils % (A) 64 %; Platelet Count 137 k/uL (150-450); RBC 3.41 m/uL (4.30-5.90); RDW 17.5 % (11.5-15.5); WBC 3.9 k/uL (3.8-10.6)
[2020-02-26 06:48] LABS: HGB 9.5 gm/dL (13.0-17.5)
[2020-02-26] MEDS: HEPARIN SODIUM,PORCINE 5,000 UNIT/ML 1 ML VIAL SQ SCH ×2 (09:17→20:24)
[2020-02-26] MEDS: NICOTINE 14MG/24HR PATCH TRANSDERM SCH (09:17)
[2020-02-26 09:36] LABS: African American GFR (CKD) 131.8 (60.0-200.0); Anion Gap 6.7 mmol/L (4.00-12.00); Calcium 7.8 mg/dL (8.7-10.3); Carbon Dioxide 17.3 mmol/L (21.6-31.8); Magnesium 1.2 mg/dL (1.5-2.4); Non-African American GFR(CKD) 113.7 (60.0-200.0); Potassium 3.3 mmol/L (3.5-5.5)
[2020-02-26] MEDS: POTASSIUM CHLORIDE ER 20 MEQ TAB.ER PO SCH ×2 (11:03→12:49)
[2020-02-26] MEDS: MAGNESIUM SULFATE-D5W PMX 1 GM in DEXTROSE/WATER 1 100ML.BAG IVPB SCH ×3 (11:04→13:56)
--- NOTE | 2020-02-26 13:08 | P.PN ---
Subjective Progress Note Date: 02/26/20 Principal diagnosis: Weakness, abnormal computed tomography scan 65-year-old white male patient with a history of hypertension, however patient has not followed with his doctor in quite some time, patient is to see Dr. Alvarez for primary care services, presented to the emergency department on 02/24/2020 for complaints of weakness. In addition patient has had a decreased appetite, and about 10-15 pound weight loss, there is a history of vocal cord paralysis, unclear what side, and the chronic voice hoarseness however she states there is increased hoarseness to his voice. Patient has not eaten anything in 2 weeks, he was nauseous, and he would stop eating. Patient has a history of current every day tobacco use, carries at least 45 years of tobacco use, occasional soci al alcohol use, but no illicit drug use. Chest x-ray showed a spiculated lesion in the right upper lobe, CT scan of the chest reveals a 2.0 x 1.2 cm spiculated right upper lobe nodule, and additional suspicious spiculated 7 x 6 mm posterior inferior right upper lobe nodule, and a suspicious spiculated 1.3 x 0.9 cm spiculated anterior inferior right upper lobe nodule just above the minor fissure on the background of mild emphysema, no suspicious consolidation no pleural effusion or pneumothorax. The larger nodule measures 12 x 20 mm and small nodule measures 9 x 13 mm, the rest the CT of the abdomen/pelvis and other structures appear to be normal. He denies any shortness of breath, his lungs are clear, no wheezing rhonchi or crackles, patient remains on room air, patient denies any chest pain, or hemoptysis. He was seen in initial evaluation by Dr. Garcia yesterday, and he was discussed with him that patient will need outpatient PET scan, and that the lesions in the loss would be very difficult to biopsy because of the size and location. Surgical consult was placed in view of a nonspecific small right adrenal mass or nodule, and the plan is to proceed with colonoscopy on Saturday, medical oncology has also been consulted, and a bone scan was obtained showing increased uptake in the ribs consistent with multiple rib fractures of uncertain age, but no evidence of osseous metastatic disease. On today's exam patient is awake and alert, he is on room air, pulse ox 99-100%, denies any shortness of breath, he has been afebrile, his blood pressure is running on the higher side, 176/74. Denies any chest pain, no cough or congestion or hemoptysis. Labs reviewed, white blood cell count of 3.9, hemoglobin is 9.5, his serum sodium is 129. Neurologically patient is asymptomatic, potassium is 3.3, chloride is 105, BUN is 11, creatinine 0.5. Patient has 0.9 normal saline infusing at rate of 75 ML per hour. Objective - Vital Signs Vital signs: Vital Signs Temp 97.4 F L 02/26/20 12:14 Pulse 92 02/26/20 12:14 Resp 18 02/26/20 12:14 BP 176/74 02/26/20 12:14 Pulse Ox 99 02/26/20 12:14 Intake & Output 02/25/20 02/26/20 02/26/20 18:59 06:59 18:59 Intake Total 600 Balance 600 Weight 71.668 kg Intake: Intake, IV Titration 600 Amount Sodium Chloride 0.9% 1, 600 000 ml @ 75 mls/hr IV . [id number] [facility] Rx#:[id number] Other: Voiding Method Urinal # Voids 1 - Exam GENERAL EXAM: Alert, very pleasant, 65-year-old white male, on room air, with a pulse ox 100%, comfortable in no apparent distress. HEAD: Normocephalic/atraumatic. EYES: Normal reaction of pupils, equal size. Conjunctiva pink, sclera white. NOSE: Clear with pink turbinates. THROAT: No erythema or exudates. NECK: No masses, no JVD, no thyroid enlargement, no adenopathy. CHEST: No chest wall deformity. Symmetrical expansion. LUNGS: Equal air entry with no crackles, wheeze, rhonchi or dullness. CVS: Regular rate and rhythm, normal S1 and S2, no gallops, no murmurs, no rubs ABDOMEN: Soft, nontender. No hepatosplenomegaly, normal bowel sounds, no guarding or rigidity. EXTREMITIES: No clubbing, no edema, no cyanosis, 2+ pulses and upper and lower extremities. MUSCULOSKELETAL: Muscle strength and tone normal. SPINE: No scoliosis or deformity SKIN: No rashes CENTRAL NERVOUS SYSTEM: Alert and oriented -3. No focal deficits, tone is normal in all 4 extremities. PSYCHIATRIC: Alert and oriented -3. Appropriate affect. Intact judgment and insight. - Labs CBC & Chem 7: 02/26/20 05:36 02/26/20 05:36 Labs: Abnormal Lab Results - Last 24 Hours (Table) 02/25/20 02/25/20 02/26/20 Range/Units 06:08 17:03 05:36 RBC 3.41 L (4.30-5.90) m/uL Hgb 9.5 L D (13.0-17.5) gm/dL Hct 29.1 L (39.0-53.0) % RDW 17.5 H (11.5-15.5) % Plt Count 137 L (150-450) k/uL Sodium 125 L (137-145) mmol/L Potassium (3.5-5.5) mmol/L Carbon Dioxide 16 L (22-30) mmol/L Creatinine (0.6-1.5) mg/dL BUN/Creatinine Ratio (12.00-20.00) Ratio Calcium (8.7-10.3) mg/dL Magnesium (1.5-2.4) mg/dL Total Bilirubin 1.3 H (0.3-1.2) mg/dL Conjugated Bilirubin 0.60 H (0.20-0.40) mg/dL Total Protein 5.7 L (6.2-8.2) g/dL Albumin 2.90 L (3.80-4.90) g/dL Albumin/Globulin Ratio 1.04 L (1.60-3.17) g/dL 02/26/20 Range/Units 05:36 RBC (4.30-5.90) m/uL Hgb (13.0-17.5) gm/dL Hct (39.0-53.0) % RDW (11.5-15.5) % Plt Count (150-450) k/uL Sodium 129 L (137-145) mmol/L Potassium 3.3 L (3.5-5.5) mmol/L Carbon Dioxide 17.3 L (22-30) mmol/L Creatinine 0.5 L (0.6-1.5) mg/dL BUN/Creatinine Ratio 22.00 H (12.00-20.00) Ratio Calcium 7.8 L (8.7-10.3) mg/dL Magnesium 1.2 L (1.5-2.4) mg/dL Total Bilirubin (0.3-1.2) mg/dL Conjugated Bilirubin (0.20-0.40) mg/dL Total Protein (6.2-8.2) g/dL Albumin (3.80-4.90) g/dL Albumin/Globulin Ratio (1.60-3.17) g/dL Microbiology - Last 24 Hours (Table) 02/24/20 21:49 Blood Culture - Preliminary Blood No Growth after 24 hours Assessment and Plan Plan: Assessment: #1. Weakness, 3 solitary pulmonary nodules, in the right lung, could relate to metastatic disease and a primary lung cancer #2. Weakness, anorexia, weight loss, CT of abdomen and pelvis revealed nonspecific right adrenal lesion or mass, rule out metastatic disease, surgeries following, and patient is scheduled for colonoscopy on Saturday #3. History of chronic tobacco use, patient carries at least [id number] history of smoking #4. History of GERD/reflux #5. History of skin cancer #6. History of paralyzed vocal cord and chronic hoarseness, which recently has gotten a little worse according to the patient #7. Vague history of hypertension #8. Prior history of pneumonia #9. Hyponatremia, possibly hypovolemic, and possibly related to a component of SIADH Plan: Patient states his breathing is comfortable, no significant pulmonary complaints, we discussed the obtaining a PET scan on outpatient basis in view of the size and location of the 3 pulmonary nodules that would be difficult to biopsy, medical oncology note and was noted, surgical consultation was noted, patient is scheduled for colonoscopy on Saturday, we'll continue to follow and make further recommendations, I performed a history & physical examination of the patient and discussed their management with my nurse practitioner, Kylah Le. I reviewed the nurse practitioner's note and agree with the documented findings and plan of care. Lung sounds are positive for diminished breath sounds. The findings and the impression was discussed with the patient. I attest to the documentation by the nurse practitioner. Time with Patient: Less than 30
--- NOTE | 2020-02-26 14:09 | P.PN ---
<Jennifer Hooker - Last Filed: 02/26/20 14:00> Subjective Progress Note Date: 02/26/20 CHIEF COMPLAINT: Weakness and not eating HISTORY OF PRESENT ILLNESS: Patient was able to eat a bowl of oatmeal this morning. Currently denies any nausea or stomach pain. He did have a bowel movement. He reports no blood or dark stools. He had a bone scan completed showing no metastatic disease. He's been seen by pulmonary service regarding his right lung nodules in which they felt that it would be hard to obtain a biopsy. Oncology and pulmonary planning PET scan outpatient. Patient is afebrile. White count is 3.9 hemoglobin 9.5. Sodium 129, potassium 3.3 magnesium 1.2 PHYSICAL EXAM: VITAL SIGNS: Reviewed. GENERAL: no acute distress. HEENT: No sclera icterus. Extraocular movements grossly intact. Moist buccal m ucosa. Head is atraumatic, normocephalic. ABDOMEN: Soft. Nondistended. Nontender. NEUROLOGIC: Alert and oriented. Cranial nerves II through XII grossly intact. ASSESSMENT: 1. Anorexia, diffuse weakness and nausea 2. Epigastric abdominal pain 3. Right upper lobe pulmonary nodules and adrenal nodule 4. History of nicotine dependence 5. Hypomagnesemia and hypokalemia PLAN: -Plan for EGD and colonoscopy on 02/29/[address] Matt -Appreciate oncology and pulmonary service recommendations -Continue to replace potassium and magnesium per protocol Physician Steel Roller note has been reviewed by physician. Signing provider agrees with the documented findings, assessment, and plan of care. Objective - Vital Signs Vital signs: Vital Signs Temp 97.4 F L 02/26/20 12:14 Pulse 92 02/26/20 12:14 Resp 18 02/26/20 12:14 BP 176/74 02/26/20 12:14 Pulse Ox 99 02/26/20 12:14 Intake & Output 02/25/20 02/26/20 02/26/20 18:59 06:59 18:59 Intake Total 600 Balance 600 Weight 71.668 kg Intake: Intake, IV Titration 600 Amount Sodium Chloride 0.9% 1, 600 000 ml @ 75 mls/hr IV . [id number] [facility] Rx#:[id number] Other: Voiding Method Urinal # Voids 1 - Labs CBC & Chem 7: 02/26/20 05:36 02/26/20 05:36 Labs: Abnormal Lab Results - Last 24 Hours (Table) 02/25/20 02/25/20 02/26/20 Range/Units 06:08 17:03 05:36 RBC 3.41 L (4.30-5.90) m/uL Hgb 9.5 L D (13.0-17.5) gm/dL Hct 29.1 L (39.0-53.0) % RDW 17.5 H (11.5-15.5) % Plt Count 137 L (150-450) k/uL Sodium 125 L (137-145) mmol/L Potassium (3.5-5.5) mmol/L Carbon Dioxide 16 L (22-30) mmol/L Creatinine (0.6-1.5) mg/dL BUN/Creatinine Ratio (12.00-20.00) Ratio Calcium (8.7-10.3) mg/dL Magnesium (1.5-2.4) mg/dL Total Bilirubin 1.3 H (0.3-1.2) mg/dL Conjugated Bilirubin 0.60 H (0.20-0.40) mg/dL Total Protein 5.7 L (6.2-8.2) g/dL Albumin 2.90 L (3.80-4.90) g/dL Albumin/Globulin Ratio 1.04 L (1.60-3.17) g/dL 02/26/20 Range/Units 05:36 RBC (4.30-5.90) m/uL Hgb (13.0-17.5) gm/dL Hct (39.0-53.0) % RDW (11.5-15.5) % Plt Count (150-450) k/uL Sodium 129 L (137-145) mmol/L Potassium 3.3 L (3.5-5.5) mmol/L Carbon Dioxide 17.3 L (22-30) mmol/L Creatinine 0.5 L (0.6-1.5) mg/dL BUN/Creatinine Ratio 22.00 H (12.00-20.00) Ratio Calcium 7.8 L (8.7-10.3) mg/dL Magnesium 1.2 L (1.5-2.4) mg/dL Total Bilirubin (0.3-1.2) mg/dL Conjugated Bilirubin (0.20-0.40) mg/dL Total Protein (6.2-8.2) g/dL Albumin (3.80-4.90) g/dL Albumin/Globulin Ratio (1.60-3.17) g/dL Microbiology - Last 24 Hours (Table) 02/24/20 21:49 Blood Culture - Preliminary Blood No Growth after 24 hours <Mckay Matt - Last Filed: 02/26/20 15:48> Subjective As above. Patient has a bit more energy today. Anorexia persists. We'll proceed with upper and lower endoscopy Saturday. Objective - Vital Signs Vital signs: Vital Signs Temp 97.4 F L 02/26/20 12:14 Pulse 92 02/26/20 12:14 Resp 18 02/26/20 12:14 BP 176/74 02/26/20 12:14 Pulse Ox 99 02/26/20 12:14 Intake & Output 02/25/20 02/26/20 02/26/20 18:59 06:59 18:59 Intake Total 600 750 Balance 600 750 Weight 71.668 kg Intake: Intake, IV Titration 600 750 Amount Magnesium Sulfate-D5w Pmx 300 1 gm In Dextrose/Water 1 100ml.bag @ 100 mls/hr IVPB Q1H [facility] Rx#: [id number] Sodium Chloride 0.9% 1, 600 450 000 ml @ 75 mls/hr IV . [id number] [facility] Rx#:[id number] Other: Voiding Method Urinal # Voids 1 - Labs CBC & Chem 7: 02/26/20 05:36 02/26/20 14:56 Labs: Abnormal Lab Results - Last 24 Hours (Table) 02/25/20 02/26/20 02/26/20 Range/Units 17:03 05:36 05:36 RBC 3.41 L (4.30-5.90) m/uL Hgb 9.5 L D (13.0-17.5) gm/dL Hct 29.1 L (39.0-53.0) % RDW 17.5 H (11.5-15.5) % Plt Count 137 L (150-450) k/uL Sodium 125 L 129 L (137-145) mmol/L Potassium 3.3 L (3.5-5.5) mmol/L Carbon Dioxide 16 L 17.3 L (22-30) mmol/L Creatinine 0.5 L (0.6-1.5) mg/dL BUN/Creatinine Ratio 22.00 H (12.00-20.00) Ratio Calcium 7.8 L (8.7-10.3) mg/dL Magnesium 1.2 L (1.5-2.4) mg/dL Microbiology - Last 24 Hours (Table) 02/24/20 21:49 Blood Culture - Preliminary Blood No Growth after 24 hours
[2020-02-26] MEDS ORDERED: POTASSIUM CHLORIDE ER 20 MEQ TAB.ER PO SCH (16:00)
[2020-02-26] MEDS ORDERED: LORazepam 2 MG/ML INJ IV PRN (16:19)
[2020-02-26] MEDS: PANTOPRAZOLE 40 MG/10 ML VIAL IVP SCH (16:37)
--- NOTE | 2020-02-26 16:45 | P.PN ---
Subjective Progress Note Date: 02/26/20 Principal diagnosis: Creased appetite, progressive weight loss, malnutrition Dane is a pleasant 65-year-old white male who was admitted to the hospital because of decreased appetite. The patient states he had not been eating well for the last several weeks duration associated with anorexia and some weight loss. He had a CT of the chest abdomen and pelvis that showed a small suspicious spiculated right upper lobe nodule measuring about 2 cm in size and another one that was 1.5 cm in size and hence oncology has been consulted. The patient had a bone scan completed showing no metastatic disease. The patient is to follow-up with oncology for a PET scan after discharge. Surgery is also following with the patient in the plan is for an upper and lower endoscopy with Dr. Matt on Saturday. The patient states today he is overall not feeling that well, he states that he had breakfast and lunch however did not eat that much. He denies any abdominal pain, nausea or vomiting. Objective - Vital Signs Vital signs: Vital Signs Temp 97.4 F L 02/26/20 12:14 Pulse 92 02/26/20 12:14 Resp 18 02/26/20 12:14 BP 176/74 02/26/20 12:14 Pulse Ox 99 02/26/20 12:14 Intake & Output 02/25/20 02/26/20 02/26/20 18:59 06:59 18:59 Intake Total 600 750 Balance 600 750 Weight 71.668 kg Intake: Intake, IV Titration 600 750 Amount Magnesium Sulfate-D5w Pmx 300 1 gm In Dextrose/Water 1 100ml.bag @ 100 mls/hr IVPB Q1H [facility] Rx#: [id number] Sodium Chloride 0.9% 1, 600 450 000 ml @ 75 mls/hr IV . [id number] [facility] Rx#:[id number] Other: Voiding Method Urinal # Voids 1 - Exam General appearance: The patient is alert, oriented, in no acute distress. HET: Head is normocephalic and atraumatic. Conjunctiva pink. Sclera anicteric. Neck: Supple without lymphadenopathy. Trachea midline. Abdomen: Soft, nontender, nondistended with bowel sounds. No Guarding or ri gidity. Extremities: Normal skin color and turgor. No Pedal edema.. Neurological: No focal deficits. Alert and oriented 3. - Labs CBC & Chem 7: 02/26/20 05:36 02/26/20 14:56 Labs: Abnormal Lab Results - Last 24 Hours (Table) 02/25/20 02/26/20 02/26/20 Range/Units 17:03 05:36 05:36 RBC 3.41 L (4.30-5.90) m/uL Hgb 9.5 L D (13.0-17.5) gm/dL Hct 29.1 L (39.0-53.0) % RDW 17.5 H (11.5-15.5) % Plt Count 137 L (150-450) k/uL Sodium 125 L 129 L (137-145) mmol/L Potassium 3.3 L (3.5-5.5) mmol/L Carbon Dioxide 16 L 17.3 L (22-30) mmol/L Creatinine 0.5 L (0.6-1.5) mg/dL BUN/Creatinine Ratio 22.00 H (12.00-20.00) Ratio Calcium 7.8 L (8.7-10.3) mg/dL Magnesium 1.2 L (1.5-2.4) mg/dL Microbiology - Last 24 Hours (Table) 02/24/20 21:49 Blood Culture - Preliminary Blood No Growth after 24 hours Assessment and Plan Assessment: 1. This is a patient with progressive weight loss and decreased appetite for the last several weeks duration with no specific gastrointestinal symptoms. He does have occasional abdominal pain but no nausea or vomiting. There is been no change in his bowel habits. The patient never underwent an EGD or colonoscopy in the past. CT of the abdomen and pelvis was unremarkable. The patient is scheduled with surgical services for an upper and lower endoscopy on Saturday. 2. Recent CT of the chest abdomen and pelvis showed some spiculated lesions in the lung. CT of the abdomen and pelvis was unremarkable. 3. History of nicotine dependence Plan: 1. Agree with oncology consultation and recommendations 2. Gastroenterology services recommended patient to have EGD and colonoscopy, patient requested Dr. Matt to perform this procedure. Patient is scheduled for an upper and lower endoscopy with Dr. Matt on Saturday 3. Continue to monitor labs closely 4. Diet as tolerated Thank you for this consultation we will continue to follow closely The impression and plan of care has been dictated as directed. Dr. K Tumma I performed a history and examination of this patient, discussed the same with the dictator. I agree with the dictator's note ,documented as a scribe. Any additional findings or plans will be noted.
--- NOTE | 2020-02-26 18:29 | PN ---
PROGRESS NOTE DATE OF SERVICE: 02/26/2020 This 65-year-old gentleman who was admitted with significant emaciation had suspicion of weakness and underwent endoscopies by Dr. Matt on Saturday. The patient also has significant wasting and weakness at this time. Dr. Garcia has recommended PET scan as an outpatient. Dr. Encarnacion recommends possible MRCP to evaluate for any pancreatic lesions. Continuing to monitor. Past medical history reviewed. REVIEW OF SYSTEMS: CARDIOVASCULAR SYSTEM: No angina, palpitations. RESPIRATORY SYSTEM: As mentioned earlier. GI: As mentioned earlier. : No dysuria or retention. NERVOUS SYSTEM: No numbness, weakness. CURRENT MEDICATIONS: Reviewed. They include [place], Xanax, TUMS, heparin, Dilaudid, replacement protocol, Narcan, Habitrol, Zofran. PHYSICAL EXAMINATION: Patient alert, oriented x3. Pulse 92, blood pressure 176/74, respiration 18, temperature 97.4, pulse ox 99% on room air. HEENT: Conjunctivae normal. NECK: No jugular venous distention. CARDIOVASCULAR SYSTEM: S1, S2 muffled. RESPIRATORY SYSTEM: Breath sounds diminished at the bases. A few scattered rhonchi and crackles. ABDOMEN: Soft, non-tender. No mass palpable. LEGS: No edema. No swelling. NERVOUS SYSTEM: Diffusely weak and emaciated. LABS: WBC is 3.9, hemoglobin 9.5, sodium 129, potassium 3.3, magnesium 1.2. ASSESSMENT: 1. Nausea, weight loss, diffuse weakness. Rule out malignancy with metastasis. 2. Hyponatremia. 3. Hypokalemia. 4. Severe dehydration, present on admission. 5. Elevated lactic acid. 6. Elevated bilirubin. 7. Hypomagnesemia. 8. Anemia, normocytic, probably nutritional in origin. 9. Possible right upper lobe spiculated nodule with possible primary. Rule out metastatic malignancy. 10.Gastroesophageal reflux disease. 11.Hypertension. 12.History of pneumonia. 13.History of paralyzed vocal cord. 14.History of skin cancer of the face. 15.History of anxiety. 16.History of nicotine dependence. 17.FULL CODE. RECOMMENDATIONS AND DISCUSSION: I recommend to continue current medications, continue with the monitoring, symptomatic treatment. Otherwise at this time I recommend supplement sodium. Magnesium. Otherwise, continue with the IV fluids. Endoscopies per Dr. Matt and MRCP per Dr. Shashank. Guarded prognosis because of multiple complex medical issues. Further recommendations to follow. PSA also has been requested. MMODL / IJN: [id number] /
--- NOTE | 2020-02-26 19:09 | P.PN ---
Subjective Progress Note Date: 02/26/20 Principal diagnosis: Anorexia, hyponatremia Discussed case with Primary team, MRCP advised at this time. We discussed and described procedure to patient Review of Bone scan/CT without significant abnormality Objective - Vital Signs Vital signs: Vital Signs Temp 97.4 F L 02/26/20 12:14 Pulse 92 02/26/20 12:14 Resp 18 02/26/20 12:14 BP 176/74 02/26/20 12:14 Pulse Ox 99 02/26/20 12:14 Intake & Output 02/25/20 02/26/20 02/26/20 18:59 06:59 18:59 Intake Total 600 Balance 600 Weight 71.668 kg Intake: Intake, IV Titration 600 Amount Sodium Chloride 0.9% 1, 600 000 ml @ 75 mls/hr IV . [id number] [facility] Rx#:[id number] Other: Voiding Method Urinal # Voids 1 - Exam - Constitutional Looks much older than stated age General appearance: cooperative, no acute distress, thin - EENT Eyes: anicteric sclerae, EOMI ENT: hearing grossly normal, normal oropharynx - Neck Neck: no lymphadenopathy - Respiratory Respiratory: bilateral: CTA - Cardiovascular Rhythm: regular Heart sounds: normal: S1, S2 Abnormal Heart Sounds: no systolic murmur, no diastolic murmur, no rub, no S3 Gallop, no S4 Gallop, no click, no other leg Peripheral Edema: bilateral: None - Gastrointestinal Pain with palpation of the abdomen is more when touching the inferior aspect of the rib cage on both sides General gastrointestinal: no absent bowel sounds, no decreased bowel sounds, no distended, no hepatomegaly, no hyperactive bowel sounds, normal bowel sounds, no organomegaly, no rigid, no scaphoid, soft, no splenomegaly, no tenderness, no umbilical hernia, no ventral hernia - Neurologic Neurologic: CNII-XII intact - Musculoskeletal Musculoskeletal: generalized weakness - Psychiatric Psychiatric: A&O x's 3, appropriate affect, intact judgment & insight - Labs CBC & Chem 7: 02/26/20 05:36 02/26/20 14:56 Labs: Abnormal Lab Results - Last 24 Hours (Table) 02/25/20 02/25/20 02/26/20 Range/Units 06:08 17:03 05:36 RBC 3.41 L (4.30-5.90) m/uL Hgb 9.5 L D (13.0-17.5) gm/dL Hct 29.1 L (39.0-53.0) % RDW 17.5 H (11.5-15.5) % Plt Count 137 L (150-450) k/uL Sodium 125 L (137-145) mmol/L Potassium (3.5-5.5) mmol/L Carbon Dioxide 16 L (22-30) mmol/L Creatinine (0.6-1.5) mg/dL BUN/Creatinine Ratio (12.00-20.00) Ratio Calcium (8.7-10.3) mg/dL Magnesium (1.5-2.4) mg/dL Total Bilirubin 1.3 H (0.3-1.2) mg/dL Conjugated Bilirubin 0.60 H (0.20-0.40) mg/dL Total Protein 5.7 L (6.2-8.2) g/dL Albumin 2.90 L (3.80-4.90) g/dL Albumin/Globulin Ratio 1.04 L (1.60-3.17) g/dL 02/26/20 Range/Units 05:36 RBC (4.30-5.90) m/uL Hgb (13.0-17.5) gm/dL Hct (39.0-53.0) % RDW (11.5-15.5) % Plt Count (150-450) k/uL Sodium 129 L (137-145) mmol/L Potassium 3.3 L (3.5-5.5) mmol/L Carbon Dioxide 17.3 L (22-30) mmol/L Creatinine 0.5 L (0.6-1.5) mg/dL BUN/Creatinine Ratio 22.00 H (12.00-20.00) Ratio Calcium 7.8 L (8.7-10.3) mg/dL Magnesium 1.2 L (1.5-2.4) mg/dL Total Bilirubin (0.3-1.2) mg/dL Conjugated Bilirubin (0.20-0.40) mg/dL Total Protein (6.2-8.2) g/dL Albumin (3.80-4.90) g/dL Albumin/Globulin Ratio (1.60-3.17) g/dL Microbiology - Last 24 Hours (Table) 02/24/20 21:49 Blood Culture - Preliminary Blood No Growth after 24 hours Assessment and Plan Plan: CT scan - abdomen: report reviewed CT scan - chest: report reviewed CT scan - pelvis: report reviewed Assessment and Plan (1) Anorexia Current Visit: Yes Status: Acute Priority: High Code(s): R63.0 - ANOREXIA SNOMED Code(s): 89888092 (2) Weight loss Current Visit: Yes Status: Acute Priority: High Code(s): R63.4 - ABNORMAL WEIGHT LOSS SNOMED Code(s): 55167581 (3) Pulmonary nodule Current Visit: Yes Status: Acute Code(s): R91.1 - SOLITARY PULMONARY NODULE SNOMED Code(s): 020464170 (4) Adrenal nodule Current Visit: Yes Status: Acute Priority: High Code(s): E27.8 - OTHER SPECIFIED DISORDERS OF ADRENAL GLAND SNOMED Code(s): 127742166 Plan: Unclear at this time what the origin of patient's sudden onset gastrointestinal symptoms. Typically with malignancy the onset is more insidious. Agree with the Pulmonary consult. Abnormal bone findings-NM bone scan ordered. PSA Pending Plan for MRCP - Discussed with primary team and patient Doctor attests: I performed a history and physical examination of this patient, developed impression and plan of care. Discussed with dictator. I agree with dictators note, documented as a scribe.
[2020-02-26] MEDS: CALCIUM CARBONATE 500 MG CHEWABLE PO SCH (20:25)
[2020-02-27 05:30] LABS: Anisocytosis Slight; Basophils % (A) 1 %; Eosinophils # (A) 0.1 k/uL (0-0.7); Eosinophils % (A) 2 %; HCT 27.7 % (39.0-53.0); HGB 8.9 gm/dL (13.0-17.5); Lymphocytes # (A) 1.6 k/uL (1.0-4.8); Lymphocytes % (A) 38 %; MCH 27.4 pg (25.0-35.0); MCV 85.7 fL (80.0-100.0); Mean Platelet Volume 8.4; Monocytes # (A) 0.2 k/uL (0-1.0); Monocytes % (A) 5 %; Neutrophils # (A) 2.2 k/uL (1.3-7.7); Neutrophils % (A) 53 %; Platelet Count 135 k/uL (150-450); RBC 3.23 m/uL (4.30-5.90); RDW 17.7 % (11.5-15.5); WBC 4.2 k/uL (3.8-10.6)
[2020-02-27] MEDS: PANTOPRAZOLE 40 MG/10 ML VIAL IVP SCH (09:41)
[2020-02-27] MEDS: NICOTINE 14MG/24HR PATCH TRANSDERM SCH (09:42)
[2020-02-27] MEDS: HEPARIN SODIUM,PORCINE 5,000 UNIT/ML 1 ML VIAL SQ SCH ×2 (09:42→20:16)
[2020-02-27] MEDS: SODIUM CHLORIDE 0.9% 1,000 ML IV SCH ×2 (09:42→20:17)
[2020-02-27] MEDS: FOLIC ACID 1 MG TAB PO SCH (09:42)
[2020-02-27] MEDS: MULTIVITAMINS, THERA 1 EACH TAB PO SCH (09:42)
[2020-02-27] MEDS: THIAMINE 100 MG TAB PO SCH (09:42)
--- NOTE | 2020-02-27 09:44 | P.PN ---
Progress Note - Text Progress Note Date: 02/27/20 The patient resting comfortably in his bed. He denies any significant abdominal pain. On exam vital signs are stable. Abdomen is soft.. Patient will be scheduled for colonoscopy EGD on Saturday. He'll start bowel prep tomorrow.
[2020-02-27 09:55] LABS: African American GFR (CKD) 131.8 (60.0-200.0); Anion Gap 5.1 mmol/L (4.00-12.00); Calcium 7.6 mg/dL (8.7-10.3); Carbon Dioxide 17.9 mmol/L (21.6-31.8); Magnesium 1.5 mg/dL (1.5-2.4); Non-African American GFR(CKD) 113.7 (60.0-200.0); Potassium 3.9 mmol/L (3.5-5.5)
--- NOTE | 2020-02-27 13:55 | P.PN ---
Subjective Progress Note Date: 02/27/20 Principal diagnosis: Weakness, abnormal CAT scan 65-year-old white male patient with a history of hypertension, however patient has not followed with his doctor in quite some time, patient is to see Dr. Alvarez for primary care services, presented to the emergency department on 02/24/2020 for complaints of weakness. In addition patient has had a decreased appetite, and about 10-15 pound weight loss, there is a history of vocal cord paralysis, unclear what side, and the chronic voice hoarseness however she states there is increased hoarseness to his voice. Patient has not eaten anything in 2 weeks, he was nauseous, and he would stop eating. Patient has a history of current every day tobacco use, carries at least 45 years of tobacco use, occasional social alcohol use, but no illicit drug use. Chest x-ray showed a spiculated lesion in the right upper lobe, CT scan of the chest reveals a 2.0 x 1.2 cm spiculated right upper lobe nodule, and additional suspicious spiculated 7 x 6 mm posterior inferior right upper lobe nodule, and a suspicious spiculated 1.3 x 0.9 cm spiculated anterior inferior right upper lobe nodule just above the minor fissure on the background of mild emphysema, no suspicious consolidation no pleural effusion or pneumothorax. The larger nodule measures 12 x 20 mm and small nodule measures 9 x 13 mm, the rest the CT of the abdomen/pelvis and other structures appear to be normal. He denies any shortness of breath, his lungs are clear, no wheezing rhonchi or crackles, patient remains on room air, patient denies any chest pain, or hemoptysis. He was seen in initial evaluation by Dr. Garcia yesterday, and he was discussed with him that patient will need outpatient PET scan, and that the lesions in the loss would be very difficult to biopsy because of the size and location. Surgical consult was placed in view of a nonspecific small right adrenal mass or nodule, and the plan is to proceed with colonoscopy on Saturday, medical oncology has also been consulted, and a bone scan was obtained showing increased uptake in the ribs consistent with multiple rib fractures of uncertain age, but no evidence of osseous metastatic disease. On today's exam patient is awake and alert, he is on room air, pulse ox 99-100%, denies any shortness of breath, he has been afebrile, his blood pressure is running on the higher side, 176/74. Denies any chest pain, no cough or congestion or hemoptysis. Labs reviewed, white blood cell count of 3.9, hemoglobin is 9.5, his serum sodium is 129. Neurologically patient is asymptomatic, potassium is 3.3, chloride is 105, BUN is 11, creatinine 0.5. Patient has 0.9 normal saline infusing at rate of 75 ML per hour. The patient is seen today 02/27/2020 in follow-up on the regular medical floor. He is currently resting quite comfortably in bed. Awake and alert in no acute distress. No shortness of breath, cough or congestion. Maintaining O2 saturations in the high 90s on room air. He's been afebrile. Somewhat hypertensive. Blood culture reveals no growth to date. White count 4.2. Hemog lobin 8.9. Platelets 135. Sodium 127. Potassium 3.9. Creatinine 0.5. Bone scan did not reveal any evidence of osseous metastatic disease. He has a MR of the pancreas/MRCP with and without contrast pending. Objective - Vital Signs Vital signs: Vital Signs Temp 97.4 F L 02/27/20 12:00 Pulse 62 02/27/20 12:00 Resp 18 02/27/20 12:00 BP 189/97 02/27/20 12:00 Pulse Ox 99 02/27/20 12:00 Intake & Output 02/26/20 02/27/20 02/27/20 18:59 06:59 18:59 Intake Total 750 825 Balance 750 825 Intake: Intake, IV Titration 750 825 Amount Magnesium Sulfate-D5w Pmx 300 1 gm In Dextrose/Water 1 100ml.bag @ 100 mls/hr IVPB Q1H [facility] Rx#: [id number] Sodium Chloride 0.9% 1, 450 825 000 ml @ 75 mls/hr IV . [id number] [facility] Rx#:[id number] Other: Voiding Method Toilet Toilet Urinal Urinal # Voids 1 1 - Exam GENERAL EXAM: Alert, very pleasant, 65-year-old male patient, on room air, with a pulse ox 99%, comfortable in no apparent distress. HEAD: Normocephalic/atraumatic. EYES: Normal reaction of pupils, equal size. Conjunctiva pink, sclera white. NOSE: Clear with pink turbinates. THROAT: No erythema or exudates. NECK: No masses, no JVD, no thyroid enlargement, no adenopathy. CHEST: No chest wall deformity. Symmetrical expansion. LUNGS: Equal air entry with no crackles, wheeze, rhonchi or dullness. CVS: Regular rate and rhythm, normal S1 and S2, no gallops, no murmurs, no rubs ABDOMEN: Soft, nontender. No hepatosplenomegaly, normal bowel sounds, no guarding or rigidity. EXTREMITIES: No clubbing, no edema, no cyanosis, 2+ pulses and upper and lower extremities. MUSCULOSKELETAL: Muscle strength and tone normal. SPINE: No scoliosis or deformity SKIN: No rashes CENTRAL NERVOUS SYSTEM: Alert and oriented -3. No focal deficits, tone is normal in all 4 extremities. PSYCHIATRIC: Alert and oriented -3. Appropriate affect. Intact judgment and insight. - Labs CBC & Chem 7: 02/27/20 05:02 02/27/20 05:02 Labs: Abnormal Lab Results - Last 24 Hours (Table) 02/27/20 02/27/20 Range/Units 05:02 05:02 RBC 3.23 L (4.30-5.90) m/uL Hgb 8.9 L (13.0-17.5) gm/dL Hct 27.7 L (39.0-53.0) % RDW 17.7 H (11.5-15.5) % Plt Count 135 L (150-450) k/uL Sodium 127 L (135-145) mmol/L Carbon Dioxide 17.9 L (21.6-31.8) mmol/L BUN 6.0 L (9.0-27.0) mg/dL Creatinine 0.5 L (0.6-1.5) mg/dL Calcium 7.6 L (8.7-10.3) mg/dL Microbiology - Last 24 Hours (Table) 02/24/20 21:49 Blood Culture - Preliminary Blood No Growth after 48 hours Assessment and Plan Assessment: 1 Weakness, 3 solitary pulmonary nodules, in the right lung, could relate to metastatic disease and a primary lung cancer 2 Weakness, anorexia, weight loss, CT of abdomen and pelvis revealed nonspecific right adrenal lesion or mass, rule out metastatic disease, patient is scheduled for EGD/colonoscopy on Saturday. MRCP scheduled for today 3 History of chronic tobacco use, patient carries at least [id number] history of smoking 4 History of GERD/reflux 5 History of skin cancer 6 History of paralyzed vocal cord and chronic hoarseness, which recently has gotten a little worse according to the patien 7 Vague history of hypertension 8 Prior history of pneumonia 9 Hyponatremia, possibly hypovolemic, and possibly related to a component of SIADH Plan: The patient was seen and evaluated by Dr. Garcia He is stable from the pulmonary standpoint Bone scan evidence of metastasis MRCP pending EGD/colonoscopy for Saturday We'll continue to follow I, the cosigning physician, performed a history & physical examination of the patient. Lungs sounds are clear. Maintaining good O2 saturations in the 90s on room air. I discussed the assessment and plan of care with my nurse Danielle rojas. I attest to the above note as dictated by her.
[2020-02-27] MEDS: amLODIPine 10 MG TAB PO SCH (13:56)
[2020-02-27] MEDS ORDERED: cloNIDine HCL 0.1 MG TAB PO PRN (15:44)
--- NOTE | 2020-02-27 16:09 | MR ---
EXAMINATION TYPE: MR pancreas / mrcp wo/w con DATE OF EXAM: 02/27/2020 COMPARISON: HISTORY: Patient having weight loss, nausea, weak, not eating and shortness of breath. Pancreatic mal ignancy. CONTRAST: Standard multiplanar, multisequence MRI departmental protocol utilizing 7 mL intravenous Gadavist girish olinium contrast. Multiplanar multiecho imaging of the abdomen was performed without and with IV contrast. There are MRCP images. There are bilateral pleural effusions. Liver shows no focal defect. Pancreatic duct appears normal. C ommon bile duct appears normal. Gallbladder is somewhat contracted. There is no evidence of pancreati c mass. Spleen is intact. The stomach is intact. Stomach has normal size. The kidneys have normal siz e and contour. There is no hydronephrosis. There is no sign of retroperitoneal lymphadenopathy. There is no adrenal mass. The MRCP images show normal-sized common bile duct. Intrahepatic bile ducts are not dilated. The rinaldi creatic duct appears normal. Contrast images show no pathologic enhancement. There is normal enhancem ent of the portal venous system. IMPRESSION: Normal MRCP exam. No dilated ducts. Normal pancreas. No focal liver defect. Bilateral basilar pulmonary infiltrates or pleural fluid. This appears to be a change compared to the recent CT scan of 02/24/2020.
--- NOTE | 2020-02-27 17:31 | PN ---
PROGRESS NOTE DATE OF SERVICE: 02/27/2020 This 65-year-old gentleman who was admitted with nausea, weight loss is being evaluated for primary malignancy. EGD is being planned on Saturday. Anjel pancreas MRI has been ordered. No chest pain. No palpitations. No fever. PHYSICAL EXAMINATION: Alert and oriented times three. Pulse 62. Blood pressure 189/97, respiration 18, temperature 97.4. HEENT: Conjunctivae normal. NECK: No JVD. CARDIOVASCULAR: S1, S2 muffled. RESPIRATIONS: Breath sounds diminished in the bases. No rhonchi. No crackles. ABDOMEN: Soft, nontender. No mass palpable. LEGS are no edema. No swelling. NERVOUS SYSTEM: No focal deficits. LABS: Hemoglobin 8.9, sodium is 127. ASSESSMENT: 1. Nausea, weight loss, diffuse weakness, rule out malignancy with metastasis. 2. Hyponatremia. 3. Hypertension. 4. Hypokalemia. 5. Severe dehydration present on admission. 6. Elevated lactic acid. 7. Elevated bilirubin. 8. Hypomagnesemia. 9. Anemia normocytic, probably nutritional origin. 10.Possible right upper lobe spiculated nodule with possible primary, rule out metastatic malignancy. 11.Gastroesophageal reflux disease. 12.Hypertension. 13.History of pneumonia. 14.History of paralyzed vocal cord. 15.History of skin cancer in the face. 16.History of anxiety. 17.History of nicotine dependence. 18.FULL CODE. RECOMMENDATIONS AND DISCUSSION: I recommend to continue current medications, symptomatic treatment. Await pancreatic MRI. I would recommend add clonidine to the current regimen. Otherwise, closely monitor. Further recommendations to follow. MMODL / IJN: [id number] /
[2020-02-27] MEDS: CALCIUM CARBONATE 500 MG CHEWABLE PO SCH (20:16)
[2020-02-27] MEDS: cloNIDine HCL 0.1 MG TAB PO SCH (20:16)
[2020-02-27 20:43] VITALS: RESP 16
[2020-02-28] MEDS: cloNIDine HCL 0.1 MG TAB PO SCH ×2 (08:58→21:36)
[2020-02-28] MEDS: NICOTINE 14MG/24HR PATCH TRANSDERM SCH (08:58)
[2020-02-28] MEDS: MULTIVITAMINS, THERA 1 EACH TAB PO SCH (08:58)
[2020-02-28] MEDS: amLODIPine 10 MG TAB PO SCH (08:58)
[2020-02-28] MEDS: FOLIC ACID 1 MG TAB PO SCH (08:58)
[2020-02-28] MEDS: THIAMINE 100 MG TAB PO SCH (08:58)
[2020-02-28] MEDS: PANTOPRAZOLE 40 MG/10 ML VIAL IVP SCH (08:58)
[2020-02-28] MEDS: HEPARIN SODIUM,PORCINE 5,000 UNIT/ML 1 ML VIAL SQ SCH ×2 (08:59→21:36)
--- NOTE | 2020-02-28 09:49 | P.PN ---
Progress Note - Text Progress Note Date: 02/28/20 The patient feels better. He is eating a regular diet. On exam vitals are stable. Abdomen soft. Patient's diet was change to clear liquid diet. He will see bowel prep today. He is scheduled for colonoscopy tomorrow.
--- NOTE | 2020-02-28 11:30 | XR ---
EXAMINATION TYPE: XR chest 1V portable DATE OF EXAM: 02/28/2020 COMPARISON: 02/24/2020 INDICATION: Pneumonia, cough TECHNIQUE: Single frontal view of the chest is obtained. FINDINGS: The heart size is normal. The pulmonary vasculature is normal. There is a very minimal right pleural effusion present. Previous right upper lobe infiltrate appears resolved. Medial right apical infiltrate has developed. Correlate for atelectasis. A more inferior right midlung infiltrate may also be developing. IMPRESSION: 1. Medial right apical atelectasis and a mild developing right midlung infiltrate. 2. Small right pleural effusion
[2020-02-28] MEDS: SODIUM CHLORIDE 0.9% 1,000 ML IV SCH (11:53)
[2020-02-28] MEDS ORDERED: PEG 3350-NA SULF,BICARB,CL/KCL 4,000 ML BOTTLE PO ONE (12:00)
--- NOTE | 2020-02-28 13:37 | P.PN ---
Subjective Progress Note Date: 02/28/20 Principal diagnosis: Weakness, abnormal CAT scan 65-year-old white male patient with a history of hypertension, however patient has not followed with his doctor in quite some time, patient is to see Dr. Alvarez for primary care services, presented to the emergency department on 02/24/2020 for complaints of weakness. In addition patient has had a decreased appetite, and about 10-15 pound weight loss, there is a history of vocal cord paralysis, unclear what side, and the chronic voice hoarseness however she states there is increased hoarseness to his voice. Patient has not eaten anything in 2 weeks, he was nauseous, and he would stop eating. Patient has a history of current every day tobacco use, carries at least 45 years of tobacco use, occasional social alcohol use, but no illicit drug use. Chest x-ray showed a spiculated lesion in the right upper lobe, CT scan of the chest reveals a 2.0 x 1.2 cm spiculated right upper lobe nodule, and additional suspicious spiculated 7 x 6 mm posterior inferior right upper lobe nodule, and a suspicious spiculated 1.3 x 0.9 cm spiculated anterior inferior right upper lobe nodule just above the minor fissure on the background of mild emphysema, no suspicious consolidation no pleural effusion or pneumothorax. The larger nodule measures 12 x 20 mm and small nodule measures 9 x 13 mm, the rest the CT of the abdomen/pelvis and other structures appear to be normal. He denies any shortness of breath, his lungs are clear, no wheezing rhonchi or crackles, patient remains on room air, patient denies any chest pain, or hemoptysis. He was seen in initial evaluation by Dr. Garcia yesterday, and he was discussed with him that patient will need outpatient PET scan, and that the lesions in the loss would be very difficult to biopsy because of the size and location. Surgical consult was placed in view of a nonspecific small right adrenal mass or nodule, and the plan is to proceed with colonoscopy on Saturday, medical oncology has also been consulted, and a bone scan was obtained showing increased uptake in the ribs consistent with multiple rib fractures of uncertain age, but no evidence of osseous metastatic disease. On today's exam patient is awake and alert, he is on room air, pulse ox 99-100%, denies any shortness of breath, he has been afebrile, his blood pressure is running on the higher side, 176/74. Denies any chest pain, no cough or congestion or hemoptysis. Labs reviewed, white blood cell count of 3.9, hemoglobin is 9.5, his serum sodium is 129. Neurologically patient is asymptomatic, potassium is 3.3, chloride is 105, BUN is 11, creatinine 0.5. Patient has 0.9 normal saline infusing at rate of 75 ML per hour. The patient is seen today 02/27/2020 in follow-up on the regular medical floor. He is currently resting quite comfortably in bed. Awake and alert in no acute distress. No shortness of breath, cough or congestion. Maintaining O2 saturations in the high 90s on room air. He's been afebrile. Somewhat hypertensive. Blood culture reveals no growth to date. White count 4.2. Hemog lobin 8.9. Platelets 135. Sodium 127. Potassium 3.9. Creatinine 0.5. Bone scan did not reveal any evidence of osseous metastatic disease. He has a MR of the pancreas/MRCP with and without contrast pending. The patient is seen today 02/28/2020 in follow-up on the regular medical floor. He is currently resting comfortably in bed. Maintaining good O2 saturations up to 100% on room air. He's been afebrile. Hemodynamically stable. Blood culture reveals no growth. MRCP revealed a normal exam. No dilated ducts. Normal pancreas. No focal liver defect. Noted bilateral basilar pulmonary infiltrate/fluid. Chest x-ray reveals medial right apical atelectasis and a mild right midlung infiltrate. Small right pleural effusion. Plan is for colonoscopy tomorrow. Objective - Vital Signs Vital signs: Vital Signs Temp 97.8 F 02/28/20 11:38 Pulse 71 02/28/20 11:38 Resp 16 02/28/20 11:38 BP 122/82 02/28/20 11:38 Pulse Ox 99 02/28/20 11:38 Intake & Output 02/27/20 02/28/20 02/28/20 18:59 06:59 18:59 Intake Total 2220 900 700 Balance 2220 900 700 Intake: Intake, IV Titration 900 900 Amount Sodium Chloride 0.9% 1, 900 900 000 ml @ 75 mls/hr IV . [id number] [facility] Rx#:[id number] Oral 1320 700 Other: Voiding Method Toilet Toilet Toilet Urinal # Voids 3 1 1 - Exam GENERAL EXAM: Alert, very pleasant, 65-year-old male patient, on room air, with a pulse ox 99%, comfortable in no apparent distress. HEAD: Normocephalic/atraumatic. EYES: Normal reaction of pupils, equal size. Conjunctiva pink, sclera white. NOSE: Clear with pink turbinates. THROAT: No erythema or exudates. NECK: No masses, no JVD, no thyroid enlargement, no adenopathy. CHEST: No chest wall deformity. Symmetrical expansion. LUNGS: Equal air entry with no crackles, wheeze, rhonchi or dullness. CVS: Regular rate and rhythm, normal S1 and S2, no gallops, no murmurs, no rubs ABDOMEN: Soft, nontender. No hepatosplenomegaly, normal bowel sounds, no guarding or rigidity. EXTREMITIES: No clubbing, no edema, no cyanosis, 2+ pulses and upper and lower extremities. MUSCULOSKELETAL: Muscle strength and tone normal. SPINE: No scoliosis or deformity SKIN: No rashes CENTRAL NERVOUS SYSTEM: No focal deficits, tone is normal in all 4 extremities. PSYCHIATRIC: Alert and oriented -3. Appropriate affect. Intact judgment and insight. - Labs CBC & Chem 7: 02/27/20 05:02 02/27/20 05:02 Labs: Microbiology - Last 24 Hours (Table) 02/24/20 21:49 Blood Culture - Preliminary Blood No Growth after 72 hours Assessment and Plan Assessment: 1 Weakness, 3 solitary pulmonary nodules, in the right lung, could relate to metastatic disease and a primary lung cancer 2 Weakness, anorexia, weight loss, CT of abdomen and pelvis revealed nonspecific right adrenal lesion or mass, rule out metastatic disease, patient is scheduled for EGD/colonoscopy on Saturday. MRCP revealed no abnormalities. Normal pancreas. Normal liver. No dilated ducts. 3 History of chronic tobacco use, patient carries at least [id number] history of smoking 4 History of GERD/reflux 5 History of skin cancer 6 History of paralyzed vocal cord and chronic hoarseness, which recently has gotten a little worse according to the patien 7 Vague history of hypertension 8 Prior history of pneumonia 9 Hyponatremia, possibly hypovolemic, and possibly related to a component of SIADH Plan: The patient was seen and evaluated by Dr. Garcia He is stable from the pulmonary standpoint Bone scan revealed no evidence of metastasis MRCP revealed no dilated ducts. Normal pancreas. Normal liver EGD/colonoscopy for Saturday We'll continue to follow I, the cosigning physician, performed a history & physical examination of the patient. Lungs sounds are clear. Maintaining good O2 saturations in the 90s on room air. I discussed the assessment and plan of care with my nurse practitioner, Danielle Sierra. I attest to the above note as dictated by her.
--- NOTE | 2020-02-28 15:57 | PN ---
PROGRESS NOTE DATE OF SERVICE: 02/28/2020 This is a 65-year-old gentleman admitted with weakness, nausea, is being evaluated for primary malignancy. MRCP of pancreas did not show any acute abnormality. The patient is slated for endoscopies by Dr. Matt tomorrow. A portable chest x-ray done today which was reviewed personally by me showed some increased bronchovascular markings. No chest pain. No palpitations. No fever. PHYSICAL EXAMINATION: GENERAL: Patient is alert and oriented times three. VITAL SIGNS: Pulse 71, blood pressure 120/82, respirations 16, temperature 97.8, pulse ox 99% on room air HEENT: Conjunctivae normal. NECK: No jugular venous distention. RESPIRATORY: Breath sounds diminished at the bases. A few rhonchi, no crackles. HEART: S1 and S2, muffled. ABDOMEN: Soft, no tenderness. EXTREMITIES: No edema, no swelling. NERVOUS: No focal deficits. LABS: WBC 4.2, hemoglobin 8.9, sodium 127, hemoglobin 3.9, magnesium 1.5. ASSESSMENT: 1. Nausea, weight loss, diffuse weakness, rule out malignancy with metastasis. 2. Hyponatremia. 3. Anemia, rule out acute blood loss anemia. 4. Hypertension. 5. Hypokalemia. 6. Severe dehydration present on admission. 7. Elevated lactic acid. 8. Elevated bilirubin. 9. Hypomagnesemia. 10.Anemia. 11.Possible right upper lobe spiculated nodule with possible primary, rule out metastatic malignancy. 12.Gastroesophageal reflux disease. 13.Hypertension. 14.History of pneumonia. 15.History of paralyzed vocal cords. 16.History of skin cancer in the face. 17.History of anxiety. 18.History of nicotine dependence. 19.FULL CODE. RECOMMENDATIONS AND DISCUSSION: Recommend to continue current management and continue symptomatic treatment. The patient will need endoscopies both upper and lower. Otherwise repeat labs. Closely follow with Dr. Matt. Guarded prognosis. Further recommendations to follow. MMODL / IJN: [id number] /
[2020-02-28] MEDS: CALCIUM CARBONATE 500 MG CHEWABLE PO SCH (21:36)
[2020-02-29] MEDS: SODIUM CHLORIDE 0.9% 1,000 ML IV SCH (02:44)
[2020-02-29 05:00] VITALS: TEMP 97.4
[2020-02-29] MEDS: HEPARIN SODIUM,PORCINE 5,000 UNIT/ML 1 ML VIAL SQ SCH (09:25)
[2020-02-29] MEDS: NICOTINE 14MG/24HR PATCH TRANSDERM SCH (09:31)
[2020-02-29] MEDS: amLODIPine 10 MG TAB PO SCH (09:31)
[2020-02-29] MEDS: cloNIDine HCL 0.1 MG TAB PO SCH (09:31)
[2020-02-29] MEDS: PANTOPRAZOLE 40 MG/10 ML VIAL IVP SCH (09:31)
[2020-02-29 09:47] LABS: African American GFR (CKD) >90 (>60 ml/min/1.73 sqM); Anion Gap 5 mmol/L; Blood Urea Nitrogen 6 mg/dL (9-20); Calcium 8.6 mg/dL (8.4-10.2); Carbon Dioxide 22 mmol/L (22-30); Chloride 102 mmol/L (98-107); Glucose 88 mg/dL (74-99); Non-African American GFR(CKD) >90 (>60 ml/min/1.73 sqM); Sodium 129 mmol/L (137-145)
[2020-02-29 09:48] LABS: Potassium 3.9 mmol/L (3.5-5.1)
[2020-02-29 09:49] LABS: Anisocytosis Slight; Basophils # (A) 0.1 k/uL (0-0.2); Basophils % (A) 2 %; Eosinophils # (A) 0.1 k/uL (0-0.7); Eosinophils % (A) 2 %; HCT 31.2 % (39.0-53.0); HGB 10.2 gm/dL (13.0-17.5); Lymphocytes # (A) 1.3 k/uL (1.0-4.8); Lymphocytes % (A) 39 %; MCH 28.2 pg (25.0-35.0); MCHC 32.5 g/dL (31.0-37.0); MCV 86.6 fL (80.0-100.0); Mean Platelet Volume 8.4; Monocytes # (A) 0.3 k/uL (0-1.0); Monocytes % (A) 10 %; Neutrophils # (A) 1.6 k/uL (1.3-7.7); Neutrophils % (A) 46 %; Platelet Count 173 k/uL (150-450); RBC 3.61 m/uL (4.30-5.90); RDW 17.9 % (11.5-15.5); WBC 3.4 k/uL (3.8-10.6)
[2020-02-29] MEDS ORDERED: DEXAMETHASONE SOD PHOSPHATE 4 MG/ML 1 ML VIAL ONE (12:07)
[2020-02-29] MEDS ORDERED: ROPIVACAINE 5 MG/ML 30 ML VIAL ONE (12:07)
--- NOTE | 2020-02-29 13:24 | P.PN ---
Subjective Progress Note Date: 02/29/20 Principal diagnosis: Weakness, abnormal computed tomography scan 65-year-old white male patient with a history of hypertension, however patient has not followed with his doctor in quite some time, patient is to see Dr. Alvarez for primary care services, presented to the emergency department on 02/24/2020 for complaints of weakness. In addition patient has had a decreased appetite, and about 10-15 pound weight loss, there is a history of vocal cord paralysis, unclear what side, and the chronic voice hoarseness however she states there is increased hoarseness to his voice. Patient has not eaten anything in 2 weeks, he was nauseous, and he would stop eating. Patient has a history of current every day tobacco use, carries at least 45 years of tobacco use, occasional soci al alcohol use, but no illicit drug use. Chest x-ray showed a spiculated lesion in the right upper lobe, CT scan of the chest reveals a 2.0 x 1.2 cm spiculated right upper lobe nodule, and additional suspicious spiculated 7 x 6 mm posterior inferior right upper lobe nodule, and a suspicious spiculated 1.3 x 0.9 cm spiculated anterior inferior right upper lobe nodule just above the minor fissure on the background of mild emphysema, no suspicious consolidation no pleural effusion or pneumothorax. The larger nodule measures 12 x 20 mm and small nodule measures 9 x 13 mm, the rest the CT of the abdomen/pelvis and other structures appear to be normal. He denies any shortness of breath, his lungs are clear, no wheezing rhonchi or crackles, patient remains on room air, patient denies any chest pain, or hemoptysis. He was seen in initial evaluation by Dr. Garcia yesterday, and he was discussed with him that patient will need outpatient PET scan, and that the lesions in the loss would be very difficult to biopsy because of the size and location. Surgical consult was placed in view of a nonspecific small right adrenal mass or nodule, and the plan is to proceed with colonoscopy on Saturday, medical oncology has also been consulted, and a bone scan was obtained showing increased uptake in the ribs consistent with multiple rib fractures of uncertain age, but no evidence of osseous metastatic disease. On today's exam patient is awake and alert, he is on room air, pulse ox 99-100%, denies any shortness of breath, he has been afebrile, his blood pressure is running on the higher side, 176/74. Denies any chest pain, no cough or congestion or hemoptysis. Labs reviewed, white blood cell count of 3.9, hemoglobin is 9.5, his serum sodium is 129. Neurologically patient is asymptomatic, potassium is 3.3, chloride is 105, BUN is 11, creatinine 0.5. Patient has 0.9 normal saline infusing at rate of 75 ML per hour. On 03/10/2020 patient seen in follow-up on the medical oncology floor, he is a calm and comfortable, he is resting comfortably in bed, denies any specific complaints, his been nothing by mouth after midnight for EGD and colonoscopy this afternoon, no shortness of breath no cough, just feeling tired, but otherwise no complaints, lung sounds are clear, abdomen is soft, nontender, no nausea vomiting or diarrhea, vital signs have been stable. Room air pulse ox is 99%. Yesterday's chest x-ray has been reviewed with Dr. Chatman showing medial right apical atelectasis and mild developing right midlung infiltrate and small right-sided pleural effusion. Patient has no pulmonary complaints. CT scan of the chest was reviewed by Dr. Chatman, showing suspicious spiculated right upper lobe nodules, and nonspecific small right adrenal mass or nodule. Patient is being discharged after his EGD and colonoscopy, will plan on following up with him in the office, and discussing navigational bronchoscopy of the right middle lobe nodule Objective - Vital Signs Vital signs: Vital Signs Temp 97.4 F L 02/29/20 04:59 Pulse 69 02/29/20 04:59 Resp 16 02/29/20 04:59 BP 156/92 02/29/20 04:59 Pulse Ox 99 02/29/20 04:59 Intake & Output 02/28/20 02/29/20 02/29/20 18:59 06:59 18:59 Intake Total 2500 300 Balance 2500 300 Intake: Intake, IV Titration 0 300 Amount Sodium Chloride 0.9% 1, 0 300 000 ml @ 75 mls/hr IV . [id number] [facility] Rx#:[id number] Oral 2500 0 Other: Voiding Method Toilet Toilet # Voids 4 6 # Bowel Movements 6 - Exam GENERAL EXAM: Alert, very pleasant, 65-year-old white male, on room air, with a pulse ox 100%, comfortable in no apparent distress. HEAD: Normocephalic/atraumatic. EYES: Normal reaction of pupils, equal size. Conjunctiva pink, sclera white. NOSE: Clear with pink turbinates. THROAT: No erythema or exudates. NECK: No masses, no JVD, no thyroid enlargement, no adenopathy. CHEST: No chest wall deformity. Symmetrical expansion. LUNGS: Equal air entry with no crackles, wheeze, rhonchi or dullness. CVS: Regular rate and rhythm, normal S1 and S2, no gallops, no murmurs, no rubs ABDOMEN: Soft, nontender. No hepatosplenomegaly, normal bowel sounds, no guarding or rigidity. EXTREMITIES: No clubbing, no edema, no cyanosis, 2+ pulses and upper and lower extremities. MUSCULOSKELETAL: Muscle strength and tone normal. SPINE: No scoliosis or deformity SKIN: No rashes CENTRAL NERVOUS SYSTEM: Alert and oriented -3. No focal deficits, tone is normal in all 4 extremities. PSYCHIATRIC: Alert and oriented -3. Appropriate affect. Intact judgment and insight. - Labs CBC & Chem 7: 02/29/20 09:24 02/29/20 09:24 Labs: Abnormal Lab Results - Last 24 Hours (Table) 02/29/20 02/29/20 Range/Units 09:24 09:24 WBC 3.4 L (3.8-10.6) k/uL RBC 3.61 L (4.30-5.90) m/uL Hgb 10.2 L (13.0-17.5) gm/dL Hct 31.2 L (39.0-53.0) % RDW 17.9 H (11.5-15.5) % Sodium 129 L (137-145) mmol/L BUN 6 L (9-20) mg/dL Creatinine 0.57 L (0.66-1.25) mg/dL Microbiology - Last 24 Hours (Table) 02/24/20 21:49 Blood Culture - Preliminary Blood No Growth after 96 hours Assessment and Plan Plan: Assessment: #1. Weakness, 3 solitary pulmonary nodules, in the right lung, could relate to metastatic disease and a primary lung cancer #2. Weakness, anorexia, weight loss, CT of abdomen and pelvis revealed nonspecific right adrenal lesion or mass, rule out metastatic disease, surgeries following, and patient is scheduled for colonoscopy on Saturday #3. History of chronic tobacco use, patient carries at least [id number] history of smoking #4. History of GERD/reflux #5. History of skin cancer #6. History of paralyzed vocal cord and chronic hoarseness, which recently has gotten a little worse according to the patient #7. Vague history of hypertension #8. Prior history of pneumonia #9. Hyponatremia, possibly hypovolemic, and possibly related to a component of SIADH, improved and it is 129 on today's labs. Plan: Patient has had no event overnight, no difficulty breathing, no cough, no hemoptysis, no chest pain, he is awaiting his EGD and colonoscopy this afternoon, following the procedure discharge home is planned, and patient will come and see us in the office in one week and will discuss navigational bronchoscopy with him in regards to the right middle lobe nodule. I performed a history & physical examination of the patient and discussed their management with my nurse practitioner, Kylah Le. I reviewed the nurse practitioner's note and agree with the documented findings and plan of care. Lung sounds are positive for diminished breath sounds. The findings and the impression was discussed with the patient. I attest to the documentation by the nurse practitioner. Time with Patient: Less than 30
[2020-02-29] MEDS ORDERED: LIDOCAINE 1% INJ 10MG/ML (20 ML MDV) ONE (14:07)
[2020-02-29] MEDS ORDERED: PROPOFOL 10 MG/ML 20 ML VIAL IV ONE (14:07)
[2020-02-29] MEDS ORDERED: SODIUM CHLORIDE 0.9% 500 ML 500 ML IV ONE (14:15)
--- NOTE | 2020-02-29 14:47 | P.PCN ---
Date of Procedure: 02/29/20 Procedure(s) Performed: PREOPERATIVE DIAGNOSIS: Abdominal pain, nausea, anorexia, anemia POSTOPERATIVE DIAGNOSIS: Gastritis, small hiatal hernia, PROCEDURE: 1. EGD with biopsy 2. Colonoscopy [] ANESTHESIA: MAC SURGEON: Mckay Matt M.D. SPECIMENS: Antrum, body ENDOSCOPIC PROCEDURE: The patient was on the endoscopy table in the left decubitus position. The Olympus gastroscope was inserted into the oropharynx and passed under direct visualization to the region of the third portion of the duodenum. From that point the scope was slowly withdrawn inspecting all surfaces carefully. There were no neoplastic inflammatory or polypoid lesions throughout the duodenum. The pylorus was widely patent. The stomach was carefully inspected. There was diffuse gastritis present. Biopsies of the antrum and the body of the stomach took place. No ulcers or erosions were present. Retroflexion revealed a small sliding hiatal hernia. The esophagus was then carefully examined. There were no neoplastic inflammatory or polypoid lesions throughout the visualized esophagus. The patient was kept on the endoscopy table in the left decubitus position. The Olympus colonoscope was inserted into the anus and passed under direct visualization to the base of the cecum. The anatomy of the cecum was somewhat challenging. There was retained stool seen both at the cecum and hepatic flexure. At the cecum I could not visualize the tenia or appendiceal orifice. I could not intubate the ileum. Palpation of the right lower quadrant did suggest this was the cecum as well. The cecum was free of any neoplastic or inflammatory processes. In the descending colon a small polyp was identified and removed using the cold biopsy forceps. The remainder of the ascending and transverse colon appeared normal. In the descending colon at 45-50 cm there was a small polyp that was removed using the snare with cautery technique. There were no further neoplastic or polypoid lesions throughout the descending sigmoid or rectum. The patient had evidence of mild left sided colitis. There was mild intermittent patches of erythema without ulceration or bleeding. Biopsies of the left sided colitis took place. The patient had extensive left-sided diverticulosis as well. Overall the patient's prep was poor. Digital rectal examination was normal. The patient was taken to the recovery room in stable condition per anesthesia guidelines. RECOMMENDATIONS: Await biopsy results. Continue antiacid therapy. Would recommend short-term follow-up colonoscopy given the poor prep and the findings of polyps along with colitis. May resume diet. If patient tolerates could be discharged from my point of view with outpatient follow-up.
[2020-02-29] MEDS: FOLIC ACID 1 MG TAB PO SCH (15:14)
[2020-02-29] MEDS: MULTIVITAMINS, THERA 1 EACH TAB PO SCH (15:14)
[2020-02-29] MEDS: THIAMINE 100 MG TAB PO SCH (15:14)
[2020-02-29 15:36] VITALS: BP 118/72; PULSE 51
--- NOTE | 2020-03-01 03:03 | DS ---
DISCHARGE SUMMARY DATE OF SERVICE: 02/29/2020 FINAL DIAGNOSES: 1. Nausea, weight loss, diffuse weakness, rule out malignancy with metastasis, status post acute gastritis. 2. Hyponatremia. 3. Anemia, rule out blood loss anemia. 4. Hypertension. 5. Hypokalemia. 6. Severe dehydration, present on admission. 7. Elevated lactic acid. 8. Elevated bilirubin. 9. Hypomagnesemia. 10.Possible right upper lobe spiculated nodular density with possibly tumor, lung cancer with rule out metastatic malignancy. 11.Gastroesophageal reflux disease. 12.Hypertension. 13.History of pneumonia. 14.History of paralyzed vocal cords. 15.History of skin cancer on the face. 16.History of anxiety. 17.History of nicotine dependence. 18.FULL CODE. DISCHARGE DISPOSITION: The patient will be discharged in stable condition with guarded prognosis. Total time taken 35 minutes. HISTORY OF PRESENT ILLNESS: This 65-year-old gentleman with a past medical history of multiple medical problems, not being followed in the outpatient setting, was admitted with nausea, weight loss and weakness. The patient possibly had a spiculated mass and possibly metastatic malignancy, but a PET scan could not be done, so the patient was seen by multiple consultants including Pulmonology and as well as Hematology/Oncology and Dr. Matt. Dr. Matt performed EGD and colonoscopy. EGD showed gastritis and hiatal hernia. Recommended outpatient followup. On exam, vitals are stable. CARDIOVASCULAR: S1, S2 muffled. ABDOMEN: Soft. NERVOUS SYSTEM: No focal deficits. DISCHARGE ADVICE AND MEDICATIONS: 1. Diet is cardiac. 2. Activity limited until followup. 3. Follow up with primary physician in 2 to 3 days. 4. Follow up with Dr. Matt as recommended. 5. Follow up with Dr. Encarnacion as recommended. 6. Follow up with Dr. Garcia as recommended. Medications are: 1. Omeprazole 20 mg daily. 2. Catapres 0.1 p.o. b.i.d. 3. Folic acid 1 mg daily. 4. Multivitamins one p.o. daily. 5. Norvasc 10 mg daily. 6. Vitamin B1, 100 mg p.o. daily. 7. Protonix 40 mg daily. MMODL / IJN: [id number] /
== END 2020-02-29 18:10 | disposition home or self-care (01) | DRG 641 ==
LOC: EC 12:13 → 6NMEDSUR 14:42
PROVIDERS: ADMIT Internal Medicine; ATTEND Internal Medicine
PROC: 3E0234Z Introduction of Serum, Toxoid and Vaccine into Muscle, Percutaneous Approach (ICD-10-PCS; 2020-02-24)
PROC: 0DBM8ZX Excision of Descending Colon, Via Natural or Artificial Opening Endoscopic, Diagnostic (ICD-10-PCS; 2020-02-29)
PROC: 0DBK8ZX Excision of Ascending Colon, Via Natural or Artificial Opening Endoscopic, Diagnostic (ICD-10-PCS; 2020-02-29)
PROC: 0DBG8ZX Excision of Left Large Intestine, Via Natural or Artificial Opening Endoscopic, Diagnostic (ICD-10-PCS; 2020-02-29)
PROC: 0DB98ZX Excision of Duodenum, Via Natural or Artificial Opening Endoscopic, Diagnostic (ICD-10-PCS; principal; 2020-02-29 07:30)
PROC: 0DB68ZX Excision of Stomach, Via Natural or Artificial Opening Endoscopic, Diagnostic (ICD-10-PCS; 2020-02-29 07:30)
PROC: 0DB78ZX Excision of Stomach, Pylorus, Via Natural or Artificial Opening Endoscopic, Diagnostic (ICD-10-PCS; 2020-02-29 07:30)
DX: E86.0 Dehydration (principal); E46 Unspecified protein-calorie malnutrition; C34.91 Malignant neoplasm of unspecified part of right bronchus or lung; J90 Pleural effusion, not elsewhere classified; J98.11 Atelectasis; R64 Cachexia; E44.0 Moderate protein-calorie malnutrition; E87.2 Acidosis; E27.8 Other specified disorders of adrenal gland; E83.42 Hypomagnesemia; E87.1 Hypo-osmolality and hyponatremia; E87.6 Hypokalemia; F17.210 Nicotine dependence, cigarettes, uncomplicated; D53.9 Nutritional anemia, unspecified; I10 Essential (primary) hypertension; J38.00 Paralysis of vocal cords and larynx, unspecified; K21.9 Gastro-esophageal reflux disease without esophagitis; K44.9 Diaphragmatic hernia without obstruction or gangrene; M19.90 Unspecified osteoarthritis, unspecified site; E80.6 Other disorders of bilirubin metabolism; K63.5 Polyp of colon; K29.50 Unspecified chronic gastritis without bleeding; Z82.49 Family history of ischemic heart disease and other diseases of the circulatory system; Z85.828 Personal history of other malignant neoplasm of skin; Z87.01 Personal history of pneumonia (recurrent); R63.0 Anorexia; Z68.25 Body mass index [BMI] 25.0-25.9, adult; Z87.81 Personal history of (healed) traumatic fracture; D50.0 Iron deficiency anemia secondary to blood loss (chronic); K57.30 Diverticulosis of large intestine without perforation or abscess without bleeding; Z79.899 Other long term (current) drug therapy; Z23 Encounter for immunization
CPT/HCPCS: 36415; 43239; 45380; 45385; 71045; 71046; 71260; 74177; 74183; 78306; 80048; 80051; 80053; 80076; 81003; 82150; 82550; 83605; 83690; 83735; 83880; 84132; 84153; 84443; 84484; 85025; 85610; 85652; 85730; 86140; 87040; 88305; 90471; 90732; 93005; 96361; 96365; 96375; 99285

== ENCOUNTER → 2020-03-11 | Outpatient (CLI) | payer MEDICARE ==
--- NOTE | 2020-03-13 15:08 | PE ---
Nuclear medicine PET/CT HISTORY: Solitary pulmonary nodule, initial right lung Patient received 11.2 mCi F-18 FDG intravenously, delayed scanning was performed from the skull base to the mid thighs. Localization and attenuation correction CT scan was performed. Correlation to prior chest CT 02/24/2020 Chest and neck: There is no supraclavicular or cervical adenopathy. No axillary, mediastinal, or melvi r adenopathy. There is no pleural pericardial effusion. Hypermetabolic uptake is associated with the patient's dominant right upper lobe mass, mild uptake as well at the lesion more anteriorly in the ri ght upper lobe. There are coronary artery calcifications present. There is a hiatal hernia. ABDOMEN: Right adrenal lesion shows low-attenuation, no associated uptake. There is no ascites. No ev ident liver mass or retroperitoneal adenopathy. No suspicious uptake. Diverticular changes associated with the sigmoid colon. Osseous structures show no suspicious uptake. Anterior right-sided rib fractures show probable healin g. IMPRESSION: There is abnormal uptake associated with the spiculated lesions within the chest with ple ural extensions
== END | disposition home or self-care (01) ==
LOC: RADPETMAIN 14:00
PROVIDERS: ATTEND Internal Medicine Hematology & Oncology
DX: R91.8 Other nonspecific abnormal finding of lung field (principal)
CPT/HCPCS: 78815; A9552

== ENCOUNTER 2020-06-08 10:18 | Day surgery (SDC) | payer MEDICARE ==
[2020-06-03 12:56] VITALS: BMI 20.7
[~2020-06-08 10:18] MED LIST: ALBUTEROL NEB (CONC) 2.5 MG/0.5 ML INHALATION ONE; ATROPINE SULFATE 0.4 MG/ML 1 ML VIAL IM ONE; LACTATED RINGERS 1,000 ML IV SCH; LIDOCAINE 2% (PF) 20 MG/ML 5 ML VIAL INHALATION ONE; LIDOCAINE VISCOUS 300 MG/15 ML CUP MUCOUS MEM ONE; SODIUM CHLORIDE 0.9% 1,000 ML IV SCH
[2020-06-08] MEDS ORDERED: LIDOCAINE 1% (10MG/ML) FOR IV START INTRADERMA ONE (11:00)
[2020-06-08 11:11] VITALS: TEMP 98.3
--- NOTE | 2020-06-08 12:23 | CT ---
EXAMINATION TYPE: CT Chest wo con Veran Protocol DATE OF EXAM: 06/08/2020 COMPARISON: PET CT March 11, 2020 HISTORY: pre veran bronchial navigation, known hypermetabolic lung nodule CT DLP: 561 mGycm Automated exposure control for dose reduction was used. CT chest without contrast in inspiration and expiration technique. FINDINGS: Exam is for bronchoscopy planning for nodule sampling and not for diagnostic purposes. Mode rate underlying emphysematous change is redemonstrated. There is redemonstration of dominant 2.0 x 1. 2 cm peripheral right upper lobe nodule axial image 17 series 9 and smaller anterior 9 mm right middl e lobe nodule axial image 36. There is 8mm posterior central right upper lobe nodule image 23 thought visualized liver is markedly heterogeneously hypodense consistent with diffuse fatty infiltration sl ightly larger in size from recent PET CT. Low dense thickening to right adrenal gland remains present favoring benign hyperplasia. IMPRESSION: As above.
[2020-06-08] MEDS ORDERED: fentaNYL (PF) 50 MCG/ML 2 ML AMP ONE (12:45)
[2020-06-08] MEDS ORDERED: LIDOCAINE 1% INJ 10MG/ML (20 ML MDV) ONE (12:45)
[2020-06-08] MEDS ORDERED: SUCCINYLCHOLINE CHLORIDE 100 MG/5 ML SYR IV ONE (12:45)
[2020-06-08] MEDS ORDERED: MIDAZOLAM 2 MG/2 ML VIAL ONE (12:45)
[2020-06-08] MEDS ORDERED: PROPOFOL 10 MG/ML 20 ML VIAL IV ONE (12:45)
[2020-06-08] MEDS ORDERED: LACTATED RINGERS 1,000 ML IV ONE (13:35)
[2020-06-08 14:41] VITALS: RESP 18
--- NOTE | 2020-06-08 14:53 | XR ---
EXAMINATION TYPE: XR chest 1V portable DATE OF EXAM: 06/08/2020 Comparison: 02/28/2020 Clinical History: 65-year-old male Post right lung biopsy Findings: Navigation leads are present overlying the mid and left chest heart borderline enlarged. Hyperinflati on. Mild patchy densities in the right midlung. No pleural effusion or pneumothorax identified. Impression: COPD with some hazy right mid lung density that could represent mild pulmonary contusion following th e patient's biopsy. No pneumothorax seen.
[2020-06-08 15:19] VITALS: BP 137/92; PULSE 85
--- NOTE | 2020-06-08 15:31 | PCN ---
PROCEDURE NOTE PULMONARY/CRITICAL CARE PROCEDURE NOTE: PROCEDURE: Navigational bronchoscopy. PREOPERATIVE DIAGNOSIS: Solitary pulmonary nodule, right upper lobe. POSTOPERATIVE DIAGNOSIS: Solitary pulmonary nodule, right upper lobe. There was informed consent and universal timeout. The patient's procedure was done in room #1. Dr. Anand Chan was anesthesiologist assisted by Marlene Cortez CRNA. OPERATORS: Dr. Garcia, Dr. Sierra and Dr. Le. DESCRIPTION OF PROCEDURE: We used the [employer] electromagnetic navigational bronchoscopy system. The patient was intubated and sedated and anesthetized as per Anesthesia. The bronchoscope was inserted through the bronchoscope adapter connected to the endotracheal tube. The bronchoscope was pushed through the endotracheal tube. The right upper lobe, right middle lobe, right lower lobe, left upper lobe proper, lingula, and left lower lobe, all appeared relatively normal. There was no dominant mass or lesion. There was no bleeding. The mucosa looked normal. We used the guiding system of the electromagnetic navigational bronchoscopy to locate the lesion in the right upper lobe. We did multiple transbronchial and endobronchial biopsies of the lesion. We also did transbronchial needle aspiration biopsies of the lesion. Finally, we did both washes and brushes of the lesion. The patient tolerated the procedure well. There was no bleeding. The bronchoscope was withdrawn. The patient will be recovered. The specimens sent to the laboratory for analysis. MMODL / IJN: [id number] /
== END 2020-06-08 15:30 | disposition home or self-care (01) ==
LOC: ORWHC2ENDO 10:18
PROVIDERS: ATTEND Internal Medicine Critical Care Medicine
DX: R91.1 Solitary pulmonary nodule (principal); J44.9 Chronic obstructive pulmonary disease, unspecified; Z79.2 Long term (current) use of antibiotics; I10 Essential (primary) hypertension; F17.210 Nicotine dependence, cigarettes, uncomplicated; K21.9 Gastro-esophageal reflux disease without esophagitis; Z79.899 Other long term (current) drug therapy; Z98.890 Other specified postprocedural states; J38.01 Paralysis of vocal cords and larynx, unilateral
CPT/HCPCS: 88104; 88108; 88305; 88173; 71045; 71250; 31628; 31629; 31623; 31627; J2250; J2001; J3010; J0330; J2704; 31624; 31625

== ENCOUNTER → 2020-09-07 | Outpatient (CLI) | payer MEDICARE ==
[2020-09-07 11:20] LABS: African American GFR (CKD) >90 (>60 ml/min/1.73 sqM); Blood Urea Nitrogen 4 mg/dL (9-20); Non-African American GFR(CKD) 88 (>60 ml/min/1.73 sqM)
--- NOTE | 2020-09-07 12:22 | CT ---
EXAMINATION TYPE: CT chest w con DATE OF EXAM: 09/07/2020 COMPARISON: CT February 24, 2020 and June 08, 2020. CT March 11, 2020 HISTORY: Lung nodule CT DLP: 408 mGycm. Automated Exposure Control for Dose Reduction was Utilized. TECHNIQUE: CT scan of the thorax is performed following with IV Contrast, patient injected with 100 ml mL of Isovue 300. FINDINGS: LUNGS: Persistent spiculated 2.3 x 1.5 cm nodule posterior lateral aspect right upper lobectomy 20 co ntinued increase in size from prior studies. This corresponds to the hypermetabolic nodule on PET/CT. The spiculated 10 x 8 mm superior right lower lobe nodular/25 shows some interval increased size and prominence older studies. There is also interval increase in size with prominence to the 1.7 x 1.2 c m right middle lobe spiculated nodule image 35. Background mild underlying emphysematous change. No n ew nodules. Left lung remains clear. MEDIASTINUM: There are no new greater than 1 cm hilar or mediastinal lymph nodes. No cardiomegaly o r pericardial effusion is seen. Coronary artery calcification and/or stents are redemonstrated. OTHER: Exaggerated thoracic kyphosis. Liver is diffusely low dense consistent with fatty infiltration . Subcentimeter cyst suspected in the hepatic dome on axial image 50 series 3. IMPRESSION: Enlarging spiculated nodule in the right lung worrisome for neoplastic progression. Corre late with bronchoscopy findings from May.
== END | disposition home or self-care (01) ==
LOC: RADCTMAIN 10:35
PROVIDERS: ATTEND Thoracic Surgery (Cardiothoracic Vascular Surgery)
DX: R91.1 Solitary pulmonary nodule (principal)
CPT/HCPCS: 82565; 84520; 71260; 36415; Q9967

== ENCOUNTER → 2021-04-24 | Outpatient (CLI) | payer MEDICARE ==
[2021-04-24 15:24] LABS: African American GFR (CKD) >90 (>60 ml/min/1.73 sqM); Blood Urea Nitrogen 15 mg/dL (9-20); Non-African American GFR(CKD) >90 (>60 ml/min/1.73 sqM)
--- NOTE | 2021-04-24 16:44 | CT ---
EXAMINATION TYPE: CT chest w con DATE OF EXAM: 04/24/2021 COMPARISON: 09/07/2020 HISTORY: Follow up for pulmonary nodules. CT DLP: 303.3 mGycm, Automated exposure control for dose reduction was used. CONTRAST: Performed injected with 100ml mL of Isovue 300. TECHNIQUE: Axial images were obtained at 5 mm thick sections. Reconstructed images are reviewed on [employer] computer in the coronal plane. FINDINGS: Portion of the thyroid visualized is normal. There is a 1.7 x 0.4 cm spiculated density at the right apex. This was present previously. There is a 2.5 x 2.7 cm nodule within the posterior lateral right upper lung field. This has enlarged from comparison, previous measurement 1.5 x 2.3 cm. There is a 1.6 cm spiculated nodule within the right posterior medial upper lung field. This has enla rged from 1.0 x 0.8 cm. There is a 2.3 x 2.0 cm spiculated nodule within the right anterior mid lung. This has enlarged from 1.2 x 1.7 cm. There is some mild streaky opacity in the anterior lateral right lung base could be some atelectasis. No enlarged mediastinal or hilar adenopathy is evident. The ascending aorta diameter at the level o f the main pulmonary artery is 3.7 cm. The main pulmonary artery diameter at the bifurcation is 3.[address] sections are obtained through the upper abdomen. Suspected cyst is in the superior right l obe liver. This is present previously. There is diffuse thickening through the right adrenal gland wh ich appears stable and currently measures 1.3 cm IMPRESSIONS: 1. Enlarging right lung nodules suspicious for neoplasm.
== END | disposition home or self-care (01) ==
LOC: RADCTMAIN 14:24
PROVIDERS: ATTEND Thoracic Surgery (Cardiothoracic Vascular Surgery)
DX: R91.1 Solitary pulmonary nodule (principal)
CPT/HCPCS: 82565; 84520; 71260; 36415; Q9967

== ENCOUNTER 2021-06-14 09:06 | Day surgery (SDC) | payer MEDICARE ==
[2021-06-14] MEDS ORDERED: ALPRAZolam 0.25 MG TAB PO STA (09:30)
[2021-06-14 09:57] LABS: Platelet Count 296 k/uL (150-450)
[2021-06-14 10:29] LABS: Anisocytosis Slight; HCT 23.1 % (39.0-53.0); Hypochromasia Marked; MCHC 25.3 g/dL (31.0-37.0); MCV 59.2 fL (80.0-100.0); Microcytosis Marked; RBC 3.91 m/uL (4.30-5.90); RDW 19.4 % (11.5-15.5); WBC 5.4 k/uL (3.8-10.6)
[2021-06-14 10:30] LABS: HGB 5.8 gm/dL (13.0-17.5)
[2021-06-14 10:36] LABS: INR 1.1 (<1.2); Prothrombin Time 11.7 sec (9.0-12.0)
[2021-06-14 11:10] VITALS: RESP 18; TEMP 97.6
[2021-06-14 11:11] VITALS: BP 185/93; PULSE 90
== END 2021-06-14 11:00 | disposition home or self-care (01) ==
LOC: RADPROMAIN 09:06
PROVIDERS: ATTEND Thoracic Surgery (Cardiothoracic Vascular Surgery)
DX: R22.2 Localized swelling, mass and lump, trunk (principal); Z53.09 Procedure and treatment not carried out because of other contraindication
CPT/HCPCS: 36415; 85027; 85049; 85610

== ENCOUNTER 2021-06-14 10:58 | Inpatient (IN) | payer MEDICARE ==
--- NOTE | 2021-06-14 12:25 | ED ---
General Adult HPI - General Chief complaint: Recheck/Abnormal Lab/Rx Stated complaint: High BP, low hemoglobin Time Seen by Provider: 06/14/21 12:15 Source: patient, RN notes reviewed, old records reviewed Mode of arrival: wheelchair Limitations: no limitations - History of Present Illness Initial comments: Well-appearing 66-year-old male, alert and oriented 4, states was scheduled to have a lung biopsy today but sent to the ER for hypertension and hemoglobin of 5.8. He states he did not eat today and did not take any of his medications which is why his pressure is elevated. He denies any shortness of breath, weakness, difficulty in breathing, nausea vomiting or diarrhea. He states he has not had any abnormal bleeding, denies any pain. Severity scale (1-10): 0 Associated Symptoms: denies other symptoms Treatments Prior to Arrival: none - Related Data Home Medications Medication Instructions Recorded Confirmed Omeprazole Magnesium [PriLOSEC OTC] 20 mg PO DAILY PRN 06/14/21 06/14/21 Allergies Allergy/AdvReac Type Severity Reaction Status Date / Time No Known Allergies Allergy Verified 06/14/21 13:33 Review of Systems ROS Statement: Those systems with pertinent positive or pertinent negative responses have been documented in the HPI. ROS Other: All systems not noted in ROS Statement are negative. Past Medical History Past Medical History: Cancer, GERD/Reflux, Hypertension Additional Past Medical History / Comment(s): paralyzed vocal cord, SKIN CANCE R(FACE), mass in lungs History of Any Multi-Drug Resistant Organisms: None Reported Past Surgical History: Orthopedic Surgery Additional Past Surgical History / Comment(s): triple endoscopy, LT KNEE SCOPE, LT KNEE MENISCUS SX Past Anesthesia/Blood Transfusion Reactions: No Reported Reaction Additional Past Anesthesia/Blood Transfusion Reaction / Comment(s): no previous blood transfusion Past Psychological History: No Psychological Hx Reported Smoking Status: Current every day smoker Past Alcohol Use History: Occasional Past Drug Use History: None Reported - Past Family History Father Family Medical History: Congestive Heart Failure (CHF), Myocardial Infarction ([place]) Mother Family Medical History: No Reported History Additional Family Medical History / Comment(s): MOM IS IN GOOD HEALTH AT AGE 85 General Exam Limitations: no limitations General appearance: alert, in no apparent distress Head exam: Present: atraumatic, normocephalic, normal inspection Eye exam: Present: EOMI, other (Pale conjunctiva). Absent: conjunctival injection, nystagmus, periorbital swelling, periorbital tenderness ENT exam: Present: normal exam, normal oropharynx, mucous membranes moist Neck exam: Present: normal inspection, full ROM. Absent: tenderness, meningismus, lymphadenopathy, thyromegaly Respiratory exam: Present: normal lung sounds bilaterally. Absent: respiratory distress, wheezes, rales, rhonchi, stridor, chest wall tenderness, accessory muscle use, decreased breath sounds Cardiovascular Exam: Present: regular rate, normal rhythm, normal heart sounds. Absent: systolic murmur, diastolic murmur, rubs, gallop, clicks, JVD GI/Abdominal exam: Present: soft, normal bowel sounds. Absent: distended, tenderness, guarding, rebound, rigid Rectal exam: Present: normal rectal tone, heme (-) stool, hemorrhoids (external). Absent: bloody stool, fecal impaction Extremities exam: Present: normal inspection, full ROM, normal capillary refill. Absent: tenderness, pedal edema, joint swelling, calf tenderness Back exam: Present: normal inspection, full ROM. Absent: tenderness, CVA tenderness (R), CVA tenderness (L), rash noted Neurological exam: Present: alert, oriented X3 Psychiatric exam: Present: normal affect, normal mood Skin exam: Present: warm, dry, intact, pallor. Absent: cyanosis, diaphoretic Course Vital Signs 06/14/21 06/14/21 06/14/21 11:05 12:52 15:11 Temperature 97.0 F L Pulse Rate 88 88 98 Respiratory 18 18 18 Rate Blood Pressure 163/86 164/92 131/88 O2 Sat by Pulse 100 100 100 Oximetry 06/14/21 06/14/21 06/14/21 15:59 16:09 16:39 Temperature 97.8 F 97.8 F 97.8 F Pulse Rate 87 94 87 Respiratory 18 18 18 Rate Blood Pressure 117/63 120/73 114/71 O2 Sat by Pulse 100 100 99 Oximetry 06/14/21 20:35 Temperature 97.7 F Pulse Rate 89 Respiratory 15 Rate Blood Pressure 127/72 O2 Sat by Pulse 96 Oximetry EKG Findings - EKG Results: EKG: sinus rhythm (Ventricular rate 84, PA interval 0.146, QRS 0.98, QTc 0.451) Medical Decision Making - Medical Decision Making 66-year-old male scheduled to have a lung biopsy today sent to the ER for hypertension and hemoglobin of 5.8. He did not take any of his blood pressure medications today which is likely why his pressure is elevated. He denies any hematochezia or hemataemesis. He denies shortness of breath or chest pain. His abdomen is soft and nontender. Hemoglobin is 5.8 hematocrit is 22.0. PT/INR within normal limits. Occult blood negative. He is hyponatremic at 125. Patient was given 1 unit of packed rbc's, 1 L of normal saline. He'll be admitted to the hospital for anemia and hyponatremia. Case was discussed with Dr. Vaughan - Lab Data Result diagrams: 06/14/21 13:23 06/14/21 13:23 Lab Results 06/14/21 06/14/21 06/14/21 Range/Units 13:23 13:23 13:23 WBC 6.3 (3.8-10.6) k/uL RBC 3.74 L (4.30-5.90) m/uL Hgb 5.8 L* (13.0-17.5) gm/dL Hct 22.0 L (39.0-53.0) % MCV 58.8 L (80.0-100.0) fL MCH 15.5 L (25.0-35.0) pg MCHC 26.4 L (31.0-37.0) g/dL RDW 19.3 H (11.5-15.5) % Plt Count 322 (150-450) k/uL MPV 8.6 Neutrophils % 66 % Lymphocytes % 24 % Monocytes % 7 % Eosinophils % 1 % Basophils % 1 % Neutrophils # 4.2 (1.3-7.7) k/uL Lymphocytes # 1.5 (1.0-4.8) k/uL Monocytes # 0.5 (0-1.0) k/uL Eosinophils # 0.1 (0-0.7) k/uL Basophils # 0.1 (0-0.2) k/uL Manual Slide Review Performed Hypochromasia Marked Poikilocytosis (manual Present Anisocytosis Slight Microcytosis Marked Target Cells Present PT (9.0-12.0) sec INR (<1.2) APTT (22.0-30.0) sec Sodium 125 L (137-145) mmol/L Potassium 4.0 (3.5-5.1) mmol/L Chloride 97 L (98-107) mmol/L Carbon Dioxide 21 L (22-30) mmol/L Anion Gap 7 mmol/L BUN 10 (9-20) mg/dL Creatinine 0.70 (0.66-1.25) mg/dL Est GFR (CKD-EPI)AfAm >90 (>60 ml/min/1.73 sqM) Est GFR (CKD-EPI)NonAf >90 (>60 ml/min/1.73 sqM) Glucose 102 H (74-99) mg/dL Osmolality (280-301) mosm/kg Calcium 9.1 (8.4-10.2) mg/dL Magnesium 1.5 L (1.6-2.3) mg/dL Total Bilirubin 1.2 (0.2-1.3) mg/dL AST 27 (17-59) U/L ALT 10 (4-49) U/L Alkaline Phosphatase 93 (38-126) U/L Troponin I (0.000-0.034) ng/mL Total Protein 7.6 (6.3-8.2) g/dL Albumin 3.6 (3.5-5.0) g/dL Urine Color Light Yellow Urine Appearance Clear (Clear) Urine pH 7.0 (5.0-8.0) Ur Specific [place] 1.004 (1.001-1.035) Urine Protein Negative (Negative) Urine Glucose (UA) Negative (Negative) Urine Ketones Negative (Negative) Urine Blood Negative (Negative) Urine Nitrite Negative (Negative) Urine Bilirubin Negative (Negative) Urine Urobilinogen <2.0 (<2.0) mg/dL Ur Leukocyte Esterase Negative (Negative) Blood Type Blood Type Confirm Blood Type Recheck Bld Type Recheck Status Antibody Screen Crossmatch Spec Expiration Date 06/14/21 06/14/21 06/14/21 Range/Units 13:23 13:23 13:24 WBC (3.8-10.6) k/uL RBC (4.30-5.90) m/uL Hgb (13.0-17.5) gm/dL Hct (39.0-53.0) % MCV (80.0-100.0) fL MCH (25.0-35.0) pg MCHC (31.0-37.0) g/dL RDW (11.5-15.5) % Plt Count (150-450) k/uL MPV Neutrophils % % Lymphocytes % % Monocytes % % Eosinophils % % Basophils % % Neutrophils # (1.3-7.7) k/uL Lymphocytes # (1.0-4.8) k/uL Monocytes # (0-1.0) k/uL Eosinophils # (0-0.7) k/uL Basophils # (0-0.2) k/uL Manual Slide Review Hypochromasia Poikilocytosis (manual Anisocytosis Microcytosis Target Cells PT 11.0 (9.0-12.0) sec INR 1.0 (<1.2) APTT 24.7 (22.0-30.0) sec Sodium (137-145) mmol/L Potassium (3.5-5.1) mmol/L Chloride (98-107) mmol/L Carbon Dioxide (22-30) mmol/L Anion Gap mmol/L BUN (9-20) mg/dL Creatinine (0.66-1.25) mg/dL Est GFR (CKD-EPI)AfAm (>60 ml/min/1.73 sqM) Est GFR (CKD-EPI)NonAf (>60 ml/min/1.73 sqM) Glucose (74-99) mg/dL Osmolality 264 L (280-301) mosm/kg Calcium (8.4-10.2) mg/dL Magnesium (1.6-2.3) mg/dL Total Bilirubin (0.2-1.3) mg/dL AST (17-59) U/L ALT (4-49) U/L Alkaline Phosphatase (38-126) U/L Troponin I <0.012 (0.000-0.034) ng/mL Total Protein (6.3-8.2) g/dL Albumin (3.5-5.0) g/dL Urine Color Urine Appearance (Clear) Urine pH (5.0-8.0) Ur Specific [place] (1.001-1.035) Urine Protein (Negative) Urine Glucose (UA) (Negative) Urine Ketones (Negative) Urine Blood (Negative) Urine Nitrite (Negative) Urine Bilirubin (Negative) Urine Urobilinogen (<2.0) mg/dL Ur Leukocyte Esterase (Negative) Blood Type Blood Type Confirm Blood Type Recheck Bld Type Recheck Status Antibody Screen Crossmatch Spec Expiration Date 06/14/21 06/14/21 Range/Units 14:15 14:25 WBC (3.8-10.6) k/uL RBC (4.30-5.90) m/uL Hgb (13.0-17.5) gm/dL Hct (39.0-53.0) % MCV (80.0-100.0) fL MCH (25.0-35.0) pg MCHC (31.0-37.0) g/dL RDW (11.5-15.5) % Plt Count (150-450) k/uL MPV Neutrophils % % Lymphocytes % % Monocytes % % Eosinophils % % Basophils % % Neutrophils # (1.3-7.7) k/uL Lymphocytes # (1.0-4.8) k/uL Monocytes # (0-1.0) k/uL Eosinophils # (0-0.7) k/uL Basophils # (0-0.2) k/uL Manual Slide Review Hypochromasia Poikilocytosis (manual Anisocytosis Microcytosis Target Cells PT (9.0-12.0) sec INR (<1.2) APTT (22.0-30.0) sec Sodium (137-145) mmol/L Potassium (3.5-5.1) mmol/L Chloride (98-107) mmol/L Carbon Dioxide (22-30) mmol/L Anion Gap mmol/L BUN (9-20) mg/dL Creatinine (0.66-1.25) mg/dL Est GFR (CKD-EPI)AfAm (>60 ml/min/1.73 sqM) Est GFR (CKD-EPI)NonAf (>60 ml/min/1.73 sqM) Glucose (74-99) mg/dL Osmolality (280-301) mosm/kg Calcium (8.4-10.2) mg/dL Magnesium (1.6-2.3) mg/dL Total Bilirubin (0.2-1.3) mg/dL AST (17-59) U/L ALT (4-49) U/L Alkaline Phosphatase (38-126) U/L Troponin I (0.000-0.034) ng/mL Total Protein (6.3-8.2) g/dL Albumin (3.5-5.0) g/dL Urine Color Urine Appearance (Clear) Urine pH (5.0-8.0) Ur Specific [place] (1.001-1.035) Urine Protein (Negative) Urine Glucose (UA) (Negative) Urine Ketones (Negative) Urine Blood (Negative) Urine Nitrite (Negative) Urine Bilirubin (Negative) Urine Urobilinogen (<2.0) mg/dL Ur Leukocyte Esterase (Negative) Blood Type O Negative Blood Type Confirm O Negative Blood Type Recheck No Previous Record Bld Type Recheck Status CABO Indicated Antibody Screen NEGATIVE Crossmatch See Detail Spec Expiration Date 06/17/20213 Critical Care Time Critical Care Time: Yes (PRBC infusion) Total Critical Care Time: 32 Disposition Clinical Impression: Anemia, Hyponatremia Disposition: ADMITTED IP TO THIS [facility] Decision Date: 06/14/21 Decision Time: 14:30
[2021-06-14] MEDS ORDERED: cloNIDine HCL 0.1 MG TAB PO STA (12:27)
[2021-06-14] MEDS ORDERED: amLODIPine 10 MG TAB PO STA (12:27)
[2021-06-14 13:52] LABS: Anisocytosis Slight; Basophils # (A) 0.1 k/uL (0-0.2); Basophils % (A) 1 %; Eosinophils # (A) 0.1 k/uL (0-0.7); Eosinophils % (A) 1 %; Hypochromasia Marked; Lymphocytes # (A) 1.5 k/uL (1.0-4.8); Lymphocytes % (A) 24 %; MCH 15.5 pg (25.0-35.0); MCHC 26.4 g/dL (31.0-37.0); MCV 58.8 fL (80.0-100.0); Mean Platelet Volume 8.6; Microcytosis Marked; Monocytes # (A) 0.5 k/uL (0-1.0); Monocytes % (A) 7 %; Neutrophils # (A) 4.2 k/uL (1.3-7.7); Neutrophils % (A) 66 %; Platelet Count 322 k/uL (150-450); RBC 3.74 m/uL (4.30-5.90); RDW 19.3 % (11.5-15.5); WBC 6.3 k/uL (3.8-10.6)
[2021-06-14 14:02] LABS: ALT 10 U/L (4-49); AST 27 U/L (17-59); African American GFR (CKD) >90 (>60 ml/min/1.73 sqM); Albumin 3.6 g/dL (3.5-5.0); Alkaline Phosphatase 93 U/L (38-126); Anion Gap 7 mmol/L; Blood Urea Nitrogen 10 mg/dL (9-20); Calcium 9.1 mg/dL (8.4-10.2); Carbon Dioxide 21 mmol/L (22-30); Chloride 97 mmol/L (98-107); Glucose 102 mg/dL (74-99); Magnesium 1.5 mg/dL (1.6-2.3); Non-African American GFR(CKD) >90 (>60 ml/min/1.73 sqM); Sodium 125 mmol/L (137-145); Total Bilirubin 1.2 mg/dL (0.2-1.3); Total Protein 7.6 g/dL (6.3-8.2)
[2021-06-14 14:08] LABS: HGB 5.8 gm/dL (13.0-17.5)
[2021-06-14 14:08] LABS: Partial Thromboplastin Time 24.7 sec (22.0-30.0)
[2021-06-14] MEDS ORDERED: SODIUM CHLORIDE 0.9% 1,000 ML IV ONE (14:28)
[2021-06-14 14:30] LABS: Appearance,Urine Clear (Clear); Bilirubin,Urine Negative (Negative); Blood,Urine Negative (Negative); Color,Urine Light Yellow; Glucose,Urine (UA) Negative (Negative); Ketones,Urine Negative (Negative); Leukocyte Esterase,Urine Negative (Negative); Nitrite,Urine Negative (Negative); Protein,Urine Negative (Negative); Specific Gravity,Urine 1.004 (1.001-1.035); Urobilinogen,Urine <2.0 mg/dL (<2.0)
[2021-06-14] MEDS ORDERED: NALOXONE 0.4 MG/ML 1 ML VIAL IV PRN (14:31)
[2021-06-14] MEDS ORDERED: ACETAMINOPHEN TAB 325 MG TAB PO PRN (14:31)
[2021-06-14 14:35] LABS: Poikilocytosis (M) Present; Target Cells Present
[2021-06-14] MEDS ORDERED: PANTOPRAZOLE 40 MG TABLET PO PRN (15:47)
--- NOTE | 2021-06-14 15:56 | P.HPIM ---
History of Present Illness Pleasant 66-year-old male was asked to go to ER after he presented to an outpatient bronchoscopy and found to have hemoglobin of 5.5. Patient is also found to have hyponatremia of 125. Patient to had history of hyponatremia in the past which appears to have improved with IV fluid hydration and appeared to be secondary to hypovolemia. Patient doesn't have any blood in the stools dark stools no hematemesis and which easier or hematuria. Patient denied any fatigue patient has extremely low MCV of 55. Patient had recent weight loss and poor by mouth intake along with 3 solid nodules in the right upper lobe of the lung for which patient is supposed to get an outpatient bronchoscopy. REVIEW OF SYSTEMS: CONSTITUTIONAL: No fever, no malaise, no fatigue. HEENT: No recent visual problems or hearing problems. Denied any sore throat. CARDIOVASCULAR: No chest pain, orthopnea, PND, no palpitations, no syncope. PULMONARY: No shortness of breath, no cough, no hemoptysis. GASTROINTESTINAL: No diarrhea, no nausea, no vomiting, no abdominal pain. NEUROLOGICAL: No headaches, no weakness, no numbness. HEMATOLOGICAL: Denies any bleeding or petechiae. GENITOURINARY: Denies any burning micturition, frequency, or urgency. MUSCULOSKELETAL/RHEUMATOLOGICAL: Denies any joint pain, swelling, or any muscle pain. ENDOCRINE: Denies any polyuria or polydipsia. The rest of the 14-point review of systems is negative. PHYSICAL EXAMINATION: GENERAL: The patient is alert and oriented x3, not in any acute distress. thin built HEENT: Pupils are round and equally reacting to light. EOMI. No scleral icterus. Does have conjunctival pallor. Normocephalic, atraumatic. No pharyngeal erythema. No thyromegaly. CARDIOVASCULAR: S1 and S2 present. No murmurs, rubs, or gallops. PULMONARY: Chest is clear to auscultation, no wheezing or crackles. ABDOMEN: Soft, nontender, nondistended, normoactive bowel sounds. No palpable o rganomegaly. MUSCULOSKELETAL: No joint swelling or deformity. EXTREMITIES: No cyanosis, clubbing, or pedal edema. NEUROLOGICAL: Gross neurological examination did not reveal any focal deficits. SKIN: No rashes. Assessment and plan -Severe anemia: Patient appears to have an deficiency anemia can string extremely low MCV thalassemias a consideration ordered iron panel, ferritin level along with hemoglobin electrophoresis patient may need IV iron transfusion transfuse PRBC until his hemoglobin is 6.5 patient is presently asymptomatic no evidence of acute blood loss. -Hyponatremia most probably hypovolemic hyponatremia that may be a component of SIADH I'll obtain urine osmolality, or serum osmolality, urine random sodium urine random creatinine TSH. She will be on continued IV hydration -Hypertension -To magnesium anemia secondary to poor by mouth intake magnesium will be placed -Continued nicotine use: Counseling was provided nicotine patch will be ordered DVT prophylaxis: Early ambulation Past Medical History Past Medical History: Cancer, GERD/Reflux, Hypertension Additional Past Medical History / Comment(s): paralyzed vocal cord, SKIN CANCER(FACE), mass in lungs History of Any Multi-Drug Resistant Organisms: None Reported Past Surgical History: Orthopedic Surgery Additional Past Surgical History / Comment(s): triple endoscopy, LT KNEE SCOPE, LT KNEE MENISCUS SX Past Anesthesia/Blood Transfusion Reactions: No Reported Reaction Additional Past Anesthesia/Blood Transfusion Reaction / Comment(s): no previous blood transfusion Past Psychological History: No Psychological Hx Reported Smoking Status: Current every day smoker Past Alcohol Use History: Occasional Past Drug Use History: None Reported - Past Family History Father Family Medical History: Congestive Heart Failure (CHF), Myocardial Infarction ([place]) Mother Family Medical History: No Reported History Additional Family Medical History / Comment(s): MOM IS IN GOOD HEALTH AT AGE 85 Medications and Allergies Home Medications Medication Instructions Recorded Confirmed Type Omeprazole Magnesium [PriLOSEC OTC] 20 mg PO DAILY PRN 06/14/21 06/14/21 History Allergies Allergy/AdvReac Type Severity Reaction Status Date / Time No Known Allergies Allergy Verified 06/14/21 13:33 Physical Exam Vitals: Vital Signs Temp Pulse Resp BP Pulse Ox 06/14/21 15:11 98 18 131/88 100 06/14/21 12:52 88 18 164/92 100 06/14/21 11:05 97.0 F L 88 18 163/86 100 Intake and Output 06/14/21 06/14/21 06/14/21 06:59 14:59 22:59 Other: Weight 74.843 kg Results CBC & Chem 7: 06/14/21 13:23 06/14/21 13:23 Labs: Abnormal Lab Results - Last 24 Hours (Table) 0106/14/21 06/14/21 Range/Units 13:23 13:23 14:15 RBC 3.74 L (4.30-5.90) m/uL Hgb 5.8 L* (13.0-17.5) gm/dL Hct 22.0 L (39.0-53.0) % MCV 58.8 L (80.0-100.0) fL MCH 15.5 L (25.0-35.0) pg MCHC 26.4 L (31.0-37.0) g/dL RDW 19.3 H (11.5-15.5) % Sodium 125 L (137-145) mmol/L Chloride 97 L (98-107) mmol/L Carbon Dioxide 21 L (22-30) mmol/L Glucose 102 H (74-99) mg/dL Magnesium 1.5 L (1.6-2.3) mg/dL Crossmatch See Detail
[2021-06-14] MEDS: MAGNESIUM SULFATE-D5W PMX 1 GM in DEXTROSE/WATER 1 100ML.BAG IVPB SCH ×2 (18:23→20:57)
[2021-06-14] MEDS: NICOTINE 14MG/24HR PATCH TRANSDERM SCH (18:24)
[2021-06-14] MEDS: SODIUM CHLORIDE 0.9% 1,000 ML IV SCH (20:58)
[2021-06-15 02:11] LABS: % Iron Saturation 3.24 (15.00-50.00); Iron 12 ug/dL (65-175); Total Iron Binding Capacity 379 ug/dL (228-460)
[2021-06-15] MEDS: SODIUM CHLORIDE 0.9% 1,000 ML IV SCH (05:41)
[2021-06-15] MEDS: NICOTINE 14MG/24HR PATCH TRANSDERM SCH (07:34)
[2021-06-15 10:11] LABS: HCT 21.8 % (39.6-50.0); HGB 6.1 g/dL (13.0-17.0); MCH 16.4 pg (27.0-32.0); MCV 58.4 fL (80.0-97.0); Mean Platelet Volume 9.5 fL (9.5-12.2); Platelet Count 299 X 10*3/uL (140-440); RBC 3.73 X 10*6/uL (4.40-5.60); RDW 25.2 % (11.5-14.5); WBC 8.97 X 10*3/uL (4.50-10.00)
[2021-06-15 10:12] LABS: Hypochromasia (M) 2+; Microcytosis (M) 2+
[2021-06-15 10:28] LABS: African American GFR (CKD) 104.9 (60.0-200.0); Anion Gap 11.2 mmol/L (10.00-18.00); Calcium 8.6 mg/dL (8.7-10.3); Magnesium 1.9 mg/dL (1.5-2.4); Non-African American GFR(CKD) 90.5 (60.0-200.0); Potassium 3.8 mmol/L (3.5-5.5)
[2021-06-15 11:53] VITALS: RESP 16
[2021-06-15] MEDS ORDERED: Potassium Replacement Protocol 1 EACH MISC MISCELLANE PRN (12:39)
[2021-06-15] MEDS ORDERED: Magnesium Replacement Protocol 1 EACH MISC MISCELLANE PRN (12:39)
[2021-06-15] MEDS ORDERED: POTASSIUM CHLORIDE ER 20 MEQ TAB.ER PO SCH (13:00)
[2021-06-15] MEDS ORDERED: SODIUM FERRIC GLUCONAT-SUCROSE 125 MG in SODIUM CHLORIDE 0.9% 100 ML IVPB ONE (15:00)
[2021-06-15] MEDS: MAGNESIUM SULFATE-D5W PMX 1 GM in DEXTROSE/WATER 1 100ML.BAG IVPB SCH ×2 (15:09→16:52)
[2021-06-15 15:43] VITALS: BP 165/88; PULSE 88; TEMP 98
--- NOTE | 2021-06-16 17:32 | P.DS ---
Providers Date of admission: 06/14/21 14:40 Attending physician: Yuval Gonsalves Primary care physician: See Bearden [facility] Course: Final Diagnosis -Severe anemia: Patient appears to have an deficiency anemia can string extremely low MCV thalassemias a consideration ordered iron panel, ferritin level along with hemoglobin electrophoresis, s/p 2 units PRBC with recheck outpatient -Hyponatremia most probably hypovolemic hyponatremia that may be a component of SIADH -Hypertension -Hypomagnesemia secondary to poor by mouth intake magnesium will be placed -Continued nicotine use: Counseling was provided nicotine patch will be ordered Discharge Disposition Patient stable for discharge home to follow up outpatient after second unit of blood transfused and he receives 1 unit of IV iron. We discharged patient on oral iron. Hospital Course This is a pleasant 66-year-old male who presents to the for hemoglobin of 5.5. She was in the hospital for an outpatient bronchoscopy and preoperative labs are completed. Patient was also found hyponatremia 125. Patient does have a history of hyponatremia which has improved with IV fluids and appears to be secondary to hypovolemia. There is no blood in the stool and Hemoccult was negative. Patient also denies hematemesis or hematuria. Patient denied any fatigue. Labs also showed extremely low MCV of 55. Patient has had recent loss and poor oral intake along with 3 cm nodules left lobe of the lung for which patient was scheduled for outpatient bronchoscopy. After 1 unit PRBC patinets hemoglobin was 6.1 and patient did receive a second unit of blood. PT/INR 11.0/1.0. Sodium improved to 130 after hydration, potassium 3.8, chloride 98, CO2 20, BUN 12.0, creatinine 0.9. Glucose 102, osmolality serum 264, magnesium 1.5, iron 12, ferritin level 12.3, %saturation 3.24, TIBC 379. Troponin negat jade, liver enzymes negative, THS 0.684. Urinalysis within normal limits, urine osmolality 190, urine random sodium 150, urine random uric acid 12.2. Coronaravirus not detected. 06/15/2019 Patient evaluated today during his second infusion of blood. Denies any chest pain cough or shortness of breath. He denies any dizziness lightheadedness. Denies any nausea vomiting or diarrhea. There've been no blood in stool have a small bowel movement today. He would like to be discharged home after his second unit of blood will follow-up with his PCP and hematology and repeat labs in 2-3 days. He did also receive 1 dose of IV iron. Vital stable to pressure 165/88, he is on Room Air, Afebrile, Heart Rate 80 Sinus Rhythm. Lungs Are Clear to Auscultation, S1-S2 Auscultated, Abdomen soft and nontender, focal neurological examination is negative. Patient is cleared for discharge. Please see medication reconciliation for a list of current medications. Thank you for allowing us to participate in the care of this patient. Patient Condition at Discharge: Fair Plan - Discharge Summary Discharge Rx Participant: Yes New Discharge Prescriptions: New Ferrous Sulfate [Iron] 325 mg PO DAILY #60 tablet Acetaminophen Tab [Tylenol] 650 mg PO Q6HR PRN tab PRN Reason: Mild Pain Or Fever > 100.5 Continue Omeprazole Magnesium [PriLOSEC OTC] 20 mg PO DAILY PRN PRN Reason: Heartburn Discharge Medication List Omeprazole Magnesium [PriLOSEC OTC] 20 mg PO DAILY PRN 06/14/21 [History] Acetaminophen Tab [Tylenol] 650 mg PO Q6HR PRN tab 06/15/21 [Rx] Ferrous Sulfate [Iron] 325 mg PO DAILY #60 tablet 06/15/21 [Rx] Follow up Appointment(s)/Referral(s): Juan Alberto Encarnacion MD [STAFF PHYSICIAN] - 1 Week (for hematology, follow up ferritin and iron studies) See Plata III, MD [Primary Care Provider] - 1-2 days Ambulatory/Diagnostic Orders: Basic Metabolic Panel [LAB.AMB] Time Frame: 2 Days, Location: None Selected Complete Blood Count w/diff [LAB.AMB] Time Frame: 2 Days, Location: None Alysha ected Patient Instructions/Handouts: Anemia (DC) Discharge Disposition: HOME SELF-CARE
== END 2021-06-15 17:50 | disposition home or self-care (01) | DRG 812 ==
LOC: EC 10:58 → 4SSUR 14:40
PROVIDERS: ADMIT Internal Medicine; ATTEND Internal Medicine
PROC: 30233N1 Transfusion of Nonautologous Red Blood Cells into Peripheral Vein, Percutaneous Approach (ICD-10-PCS; principal; 2021-06-14)
DX: D50.9 Iron deficiency anemia, unspecified (principal); E87.1 Hypo-osmolality and hyponatremia; E86.1 Hypovolemia; J38.00 Paralysis of vocal cords and larynx, unspecified; I10 Essential (primary) hypertension; K21.9 Gastro-esophageal reflux disease without esophagitis; F17.210 Nicotine dependence, cigarettes, uncomplicated; Z20.822 Contact with and (suspected) exposure to COVID-19; Z85.828 Personal history of other malignant neoplasm of skin; Z82.49 Family history of ischemic heart disease and other diseases of the circulatory system
CPT/HCPCS: 36415; 80048; 80053; 81003; 82272; 82728; 83021; 83540; 83550; 83735; 83930; 83935; 84300; 84443; 84484; 84560; 85025; 85027; 85049; 85610; 85730; 86850; 86900; 86901; 86920; 87635; 93005; 96361; 96365; 96366; 99291

== ENCOUNTER 2021-10-11 13:46 | Inpatient (IN) | payer MEDICARE ==
[2021-10-11] MEDS ORDERED: SODIUM CHLORIDE 0.9% 1,000 ML IV STA (14:28)
--- NOTE | 2021-10-11 15:06 | ED ---
General Adult HPI - General Source: patient, EMS Mode of arrival: EMS Limitations: no limitations <Yoanna Mijares - Last Filed: 10/11/21 17:34> <Mann Raza - Last Filed: 10/11/21 18:14> - General Chief complaint: Weakness Stated complaint: fall Time Seen by Provider: 10/11/21 13:59 - History of Present Illness Initial comments: This 66-year-old male with poor hygiene presents to the emergency department stating he fell on Saturday getting out of his chair after losing his balance in his living room. Patient states he lives at home by himself but states his comes to check on him. Patient seems confused as he first stated he fell on the kitchen but then states it was actually in the living room. Patient states he has been experiencing increased weakness over the last few days. He denies any one-sided weakness, trouble speaking or facial weakness. He states he did not hit his head and he denies being on any blood thinners. Patient states he does drink beer almost daily. Patient states his only pain is on his buttocks where he states he landed after his fall. Patient states he has been walking around his house with his walker that he usually uses. Patient states he has had a little bit of a decreased appetite over the last few days. He states he does have a mild cough. Patient denies any chest pain, shortness of breath, abdominal pain, nausea, vomiting, change in bowel or bladder, lightheadedness, dizziness, headache, change in vision. (Yoanna Mijares) - Related Data Home Medications Medication Instructions Recorded Confirmed Omeprazole Magnesium [PriLOSEC OTC] 20 mg PO DAILY PRN 06/14/21 10/11/21 Acetaminophen Tab [Tylenol Tab] 1,000 mg PO Q6H PRN 10/11/21 10/11/21 Famotidine [Pepcid] 20 mg PO DAILY PRN 10/11/21 10/11/21 amLODIPine [Norvasc] 10 mg PO DAILY 10/11/21 10/11/21 diphenhydrAMINE [Benadryl] 25 - 50 mg PO HS PRN 10/11/21 10/11/21 Allergies Allergy/AdvReac Type Severity Reaction Status Date / Time No Known Allergies Allergy Verified 10/11/21 17:16 Review of Systems ROS Other: All systems not noted in ROS Statement are negative. <Yoanna Mijares - Last Filed: 10/11/21 17:34> ROS Other: All systems not noted in ROS Statement are negative. <Mann Raza - Last Filed: 10/11/21 18:14> ROS Statement: Those systems with pertinent positive or pertinent negative responses have been documented in the HPI. Past Medical History Past Medical History: Cancer, GERD/Reflux, Hypertension Additional Past Medical History / Comment(s): paralyzed vocal cord, SKIN CANC ER(FACE), mass in lungs History of Any Multi-Drug Resistant Organisms: None Reported Past Surgical History: Orthopedic Surgery Additional Past Surgical History / Comment(s): triple endoscopy, LT KNEE SCOPE, LT KNEE MENISCUS SX Past Anesthesia/Blood Transfusion Reactions: No Reported Reaction Additional Past Anesthesia/Blood Transfusion Reaction / Comment(s): no previous blood transfusion Past Psychological History: No Psychological Hx Reported Smoking Status: Current every day smoker Past Alcohol Use History: Daily Past Drug Use History: None Reported - Past Family History Father Family Medical History: Congestive Heart Failure (CHF), Myocardial Infarction ([place]) Mother Family Medical History: No Reported History Additional Family Medical History / Comment(s): MOM IS IN GOOD HEALTH AT AGE 85 <Yoanna Mijares - Last Filed: 10/11/21 17:34> General Exam Limitations: no limitations (Patient with poor hygiene. Patient is in diapers/brief that is full of feces and urine) General appearance: alert, in no apparent distress Head exam: Present: atraumatic, normocephalic, normal inspection Eye exam: Present: normal appearance, PERRL, EOMI. Absent: scleral icterus, conjunctival injection, periorbital swelling Pupils: Present: normal accommodation ENT exam: Present: normal exam, mucous membranes moist Neck exam: Present: normal inspection, full ROM. Absent: tenderness, meningismus, lymphadenopathy Respiratory exam: Present: normal lung sounds bilaterally. Absent: respiratory distress, wheezes, rales, rhonchi, stridor, chest wall tenderness, decreased breath sounds Cardiovascular Exam: Present: regular rate, normal rhythm, normal heart sounds. Absent: systolic murmur, diastolic murmur, rubs, gallop, clicks GI/Abdominal exam: Present: soft, normal bowel sounds. Absent: distended, tenderness, guarding, rebound, rigid Extremities exam: Present: normal inspection, full ROM, normal capillary refill. Absent: tenderness, pedal edema, joint swelling, calf tenderness Back exam: Present: full ROM, tenderness (Patient with tenderness to coccyx area to deep palpation). Absent: CVA tenderness (R), CVA tenderness (L), paraspinal tenderness, vertebral tenderness Neurological exam: Present: alert, oriented X3 (Patient is aware of his name, the year, the season, the month and where he is at.), CN II-XII intact Psychiatric exam: Present: normal affect, normal mood Skin exam: Present: warm, dry, intact, normal color. Absent: rash <Yoanna Mijares - Last Filed: 10/11/21 17:34> Course Vital Signs 10/11/21 14:04 Temperature 96.0 F L Pulse Rate 79 Respiratory 18 Rate Blood Pressure 108/77 O2 Sat by Pulse 99 Oximetry EKG Findings - EKG Comments: EKG Findings:: EKG impression: Sinus rhythm. Ventricular rate 82 beats per minute. NC interval 181. QRS duration 98. QT/QTc 421/459. Reviewed with my attending, <Yoanna Mijares - Last Filed: 10/11/21 17:34> Medical Decision Making - Lab Data Result diagrams: 10/11/21 15:02 10/11/21 15:02 <Yoanna Mijares - Last Filed: 10/11/21 17:34> - Lab Data Result diagrams: 10/11/21 15:02 10/11/21 15:02 <Mann Raza - Last Filed: 10/11/21 18:14> - Medical Decision Making This 66-year-old male since emergency Department after a fall on Saturday complaining of weakness. Patient with poor hygiene upon arrival and in a brief that is saturated in urine with feces. Patient states he currently lives at home by himself. Patient states when he fell on Saturday he landed on his butt and states he is having pain there. Labs with sodium 108- likely due to daily beer consumption. Creatinine kinase 541. COVID-19, influenza A/B not detected. Hemoglobin 8.0-similar compared to prior Patient states he has not been drinking as much water or eating as much food over the last couple days as he feels more tired. X-ray sacrum and coccyx impression: No acute osseous abnormality seen. CT brain and C-spine without contrast impression: No acute fracture or dislocation abdomen the cervical spine. No acute intracranial hemorrhage or midline shift seen. X-ray chest 2 view impression: 2.7 cm nodule in right upper lobe. AB focal infiltrate within the right infrahilar region measuring 1.4cm. Case discussed in detail with my attending, . Patient agreed to be admitted to the hospital for further workup, evaluation and treatment. (Yoanna Mijares) Patient will be admitted to the ICU for hyponatremia possibly secondary to beer potomania. I did discuss case with the ICU farm equipment mechanic Dr. Jay mcintosh and the animal biologist Dr. Radford. Dr. Thompson had recommended 3% saline 300 mL over 10 hours. This has been ordered. (Mann Raza) - Lab Data Lab Results 10/11/21 10/11/21 10/11/21 Range/Units 15:02 15:02 15:02 WBC 8.5 (3.8-10.6) k/uL RBC 3.67 L (4.30-5.90) m/uL Hgb 8.0 L (13.0-17.5) gm/dL Hct 25.9 L (39.0-53.0) % MCV 70.7 L (80.0-100.0) fL MCH 21.7 L (25.0-35.0) pg MCHC 30.7 L (31.0-37.0) g/dL RDW 19.0 H (11.5-15.5) % Plt Count 302 (150-450) k/uL MPV 7.7 Neutrophils % 83 % Lymphocytes % 11 % Monocytes % 3 % Eosinophils % 1 % Basophils % 0 % Neutrophils # 7.0 (1.3-7.7) k/uL Lymphocytes # 1.0 (1.0-4.8) k/uL Monocytes # 0.3 (0-1.0) k/uL Eosinophils # 0.0 (0-0.7) k/uL Basophils # 0.0 (0-0.2) k/uL Hypochromasia Moderate Poikilocytosis Slight Anisocytosis Slight Microcytosis Marked PT 11.1 (9.0-12.0) sec INR 1.0 (<1.2) APTT 30.1 H (22.0-30.0) sec Sodium (137-145) mmol/L Potassium (3.5-5.1) mmol/L Chloride (98-107) mmol/L Carbon Dioxide (22-30) mmol/L Anion Gap mmol/L BUN (9-20) mg/dL Creatinine (0.66-1.25) mg/dL Est GFR (CKD-EPI)AfAm (>60 ml/min/1.73 sqM) Est GFR (CKD-EPI)NonAf (>60 ml/min/1.73 sqM) Glucose (74-99) mg/dL Plasma Lactic Acid Ivan (0.7-2.0) mmol/L Calcium (8.4-10.2) mg/dL Phosphorus (2.5-4.5) mg/dL Magnesium (1.6-2.3) mg/dL Total Bilirubin (0.2-1.3) mg/dL AST (17-59) U/L ALT (4-49) U/L Alkaline Phosphatase (38-126) U/L Creatine Kinase (55-170) U/L Troponin I (0.000-0.034) ng/mL Total Protein (6.3-8.2) g/dL Albumin (3.5-5.0) g/dL Urine Color Yellow Urine Appearance Clear (Clear) Urine pH 6.5 (5.0-8.0) Ur Specific [facility] 1.012 (1.001-1.035) Urine Protein Negative (Negative) Urine Glucose (UA) Negative (Negative) Urine Ketones 1+ H (Negative) Urine Blood Negative (Negative) Urine Nitrite Negative (Negative) Urine Bilirubin Negative (Negative) Urine Urobilinogen 2.0 (<2.0) mg/dL Ur Leukocyte Esterase Negative (Negative) Coronavirus (PCR) (Not Detectd) Influenza Type A RNA (Not Detectd) Influenza Type B (PCR) (Not Detectd) 10/11/21 10/11/21 10/11/21 Range/Units 15:02 15:02 15:02 WBC (3.8-10.6) k/uL RBC (4.30-5.90) m/uL Hgb (13.0-17.5) gm/dL Hct (39.0-53.0) % MCV (80.0-100.0) fL MCH (25.0-35.0) pg MCHC (31.0-37.0) g/dL RDW (11.5-15.5) % Plt Count (150-450) k/uL MPV Neutrophils % % Lymphocytes % % Monocytes % % Eosinophils % % Basophils % % Neutrophils # (1.3-7.7) k/uL Lymphocytes # (1.0-4.8) k/uL Monocytes # (0-1.0) k/uL Eosinophils # (0-0.7) k/uL Basophils # (0-0.2) k/uL Hypochromasia Poikilocytosis Anisocytosis Microcytosis PT (9.0-12.0) sec INR (<1.2) APTT (22.0-30.0) sec Sodium 108 L* (137-145) mmol/L Potassium 3.9 (3.5-5.1) mmol/L Chloride 83 L (98-107) mmol/L Carbon Dioxide 20 L (22-30) mmol/L Anion Gap 5 mmol/L BUN 5 L (9-20) mg/dL Creatinine 0.53 L (0.66-1.25) mg/dL Est GFR (CKD-EPI)AfAm >90 (>60 ml/min/1.73 sqM) Est GFR (CKD-EPI)NonAf >90 (>60 ml/min/1.73 sqM) Glucose 85 (74-99) mg/dL Plasma Lactic Acid Ivan 1.1 (0.7-2.0) mmol/L Calcium 7.6 L (8.4-10.2) mg/dL Phosphorus 2.8 (2.5-4.5) mg/dL Magnesium 1.5 L (1.6-2.3) mg/dL Total Bilirubin 1.0 (0.2-1.3) mg/dL AST 40 (17-59) U/L ALT 21 (4-49) U/L Alkaline Phosphatase 93 (38-126) U/L Creatine Kinase 541 H (55-170) U/L Troponin I 0.023 (0.000-0.034) ng/mL Total Protein 6.3 (6.3-8.2) g/dL Albumin 3.0 L (3.5-5.0) g/dL Urine Color Urine Appearance (Clear) Urine pH (5.0-8.0) Ur Specific [facility] (1.001-1.035) Urine Protein (Negative) Urine Glucose (UA) (Negative) Urine Ketones (Negative) Urine Blood (Negative) Urine Nitrite (Negative) Urine Bilirubin (Negative) Urine Urobilinogen (<2.0) mg/dL Ur Leukocyte Esterase (Negative) Coronavirus (PCR) (Not Detectd) Influenza Type A RNA (Not Detectd) Influenza Type B (PCR) (Not Detectd) 10/11/21 10/11/21 Range/Units 15:02 15:02 WBC (3.8-10.6) k/uL RBC (4.30-5.90) m/uL Hgb (13.0-17.5) gm/dL Hct (39.0-53.0) % MCV (80.0-100.0) fL MCH (25.0-35.0) pg MCHC (31.0-37.0) g/dL RDW (11.5-15.5) % Plt Count (150-450) k/uL MPV Neutrophils % % Lymphocytes % % Monocytes % % Eosinophils % % Basophils % % Neutrophils # (1.3-7.7) k/uL Lymphocytes # (1.0-4.8) k/uL Monocytes # (0-1.0) k/uL Eosinophils # (0-0.7) k/uL Basophils # (0-0.2) k/uL Hypochromasia Poikilocytosis Anisocytosis Microcytosis PT (9.0-12.0) sec INR (<1.2) APTT (22.0-30.0) sec Sodium (137-145) mmol/L Potassium (3.5-5.1) mmol/L Chloride (98-107) mmol/L Carbon Dioxide (22-30) mmol/L Anion Gap mmol/L BUN (9-20) mg/dL Creatinine (0.66-1.25) mg/dL Est GFR (CKD-EPI)AfAm (>60 ml/min/1.73 sqM) Est GFR (CKD-EPI)NonAf (>60 ml/min/1.73 sqM) Glucose (74-99) mg/dL Plasma Lactic Acid Ivan (0.7-2.0) mmol/L Calcium (8.4-10.2) mg/dL Phosphorus (2.5-4.5) mg/dL Magnesium (1.6-2.3) mg/dL Total Bilirubin (0.2-1.3) mg/dL AST (17-59) U/L ALT (4-49) U/L Alkaline Phosphatase (38-126) U/L Creatine Kinase (55-170) U/L Troponin I (0.000-0.034) ng/mL Total Protein (6.3-8.2) g/dL Albumin (3.5-5.0) g/dL Urine Color Urine Appearance (Clear) Urine pH (5.0-8.0) Ur Specific [facility] (1.001-1.035) Urine Protein (Negative) Urine Glucose (UA) (Negative) Urine Ketones (Negative) Urine Blood (Negative) Urine Nitrite (Negative) Urine Bilirubin (Negative) Urine Urobilinogen (<2.0) mg/dL Ur Leukocyte Esterase (Negative) Coronavirus (PCR) Not Detected (Not Detectd) Influenza Type A RNA Not Detected (Not Detectd) Influenza Type B (PCR) Not Detected (Not Detectd) Disposition <Yoanna Mijares - Last Filed: 10/11/21 17:34> <Mann Raza - Last Filed: 10/11/21 18:14> Clinical Impression: Hyponatremia, Weakness, Elevated creatine kinase, Alcoholic Disposition: ADMITTED IP TO THIS HOSP Condition: Serious Referrals: See Plata III, MD [Primary Care Provider] - 1-2 days
[2021-10-11 15:22] LABS: Appearance,Urine Clear (Clear); Bilirubin,Urine Negative (Negative); Blood,Urine Negative (Negative); Color,Urine Yellow; Glucose,Urine (UA) Negative (Negative); Ketones,Urine 1+ (Negative); Leukocyte Esterase,Urine Negative (Negative); Nitrite,Urine Negative (Negative); PH, Urine 6.5 (5.0-8.0); Protein,Urine Negative (Negative); Specific Gravity,Urine 1.012 (1.001-1.035)
[2021-10-11 15:26] LABS: Partial Thromboplastin Time 30.1 sec (22.0-30.0); Prothrombin Time 11.1 sec (9.0-12.0)
[2021-10-11 15:27] LABS: ALT 21 U/L (4-49); AST 40 U/L (17-59); African American GFR (CKD) >90 (>60 ml/min/1.73 sqM); Alkaline Phosphatase 93 U/L (38-126); Anion Gap 5 mmol/L; Blood Urea Nitrogen 5 mg/dL (9-20); Calcium 7.6 mg/dL (8.4-10.2); Carbon Dioxide 20 mmol/L (22-30); Chloride 83 mmol/L (98-107); Creatine Kinase 541 U/L (55-170); Glucose 85 mg/dL (74-99); Magnesium 1.5 mg/dL (1.6-2.3); Non-African American GFR(CKD) >90 (>60 ml/min/1.73 sqM); Phosphorus 2.8 mg/dL (2.5-4.5); Potassium 3.9 mmol/L (3.5-5.1); Total Protein 6.3 g/dL (6.3-8.2)
[2021-10-11 15:30] LABS: Anisocytosis Slight; Basophils % (A) 0 %; Eosinophils % (A) 1 %; HCT 25.9 % (39.0-53.0); Hypochromasia Moderate; Lymphocytes % (A) 11 %; MCH 21.7 pg (25.0-35.0); MCHC 30.7 g/dL (31.0-37.0); MCV 70.7 fL (80.0-100.0); Mean Platelet Volume 7.7; Microcytosis Marked; Monocytes # (A) 0.3 k/uL (0-1.0); Monocytes % (A) 3 %; Neutrophils % (A) 83 %; Platelet Count 302 k/uL (150-450); Poikilocytosis Slight; RBC 3.67 m/uL (4.30-5.90); WBC 8.5 k/uL (3.8-10.6)
[2021-10-11 15:32] LABS: Sodium 108 mmol/L (137-145)
[2021-10-11] MEDS ORDERED: SODIUM CHLORIDE 0.9% 1,000 ML IV SCH (15:45)
--- NOTE | 2021-10-11 15:53 | XR ---
EXAMINATION TYPE: XR chest 2V DATE OF EXAM: 10/11/2021 COMPARISON: 06/08/2020, 04/24/2021 CT chest INDICATION: Weakness shortness of breath TECHNIQUE: Frontal and lateral views of the chest are obtained. FINDINGS: The heart size is normal. The pulmonary vasculature is normal. There is a 2.7 cm nodule right upper lobe. There may be some focal infiltrate within the right infrah ilar region measuring 1.4 cm. Additional workup with contrast CT of chest is recommended to reevaluat e these findings.. IMPRESSION: 1. Better visualized nodules on chest x-ray, present on prior CT. Recommend repeat chest CT to evalua te for change.
--- NOTE | 2021-10-11 15:55 | XR ---
EXAMINATION TYPE: XR sacrum coccyx DATE OF EXAM: 10/11/2021 COMPARISON: None HISTORY: Fall low back pain TECHNIQUE: 3 views sacrum and coccyx FINDINGS: Sacroiliac joints appear patent. Sacrum appears intact. No acute fracture or dislocation is evident. Coccyx is visualized appears normal. Follow up can be performed 7-10 days from acute trauma for continued pain IMPRESSION: 1. No acute osseous abnormality sacrum or coccyx.
--- NOTE | 2021-10-11 15:55 | CT ---
EXAMINATION TYPE: CT brain kacyine wo con DATE OF EXAM: 10/11/2021 COMPARISON: NONE HISTORY: FALL AND AMS CT DLP: 1266.2 mGycm. Automated Exposure Control for Dose Reduction was Utilized. TECHNIQUE: CT scan of the head and cervical spine are performed without contrast. FINDINGS: There is no acute intracranial hemorrhage or midline shift identified. Mild to moderate v entricular and sulcal prominence. Areas of low-attenuation throughout the periventricular white matte r slightly greater on the right are nonspecific. Finding likely on basis of product of chronic small vessel ischemic change in a patient of this age. The globes are intact and the visualized sinuses are clear. Cervical spine is visualized in its entirety from C1 through upper thoracic levels and demonstrates d extroconvex scoliosis centered upper thoracic spine without evidence of acute fracture or dislocation . Prevertebral soft tissue appears within normal limits. The C1-C2 articulation is within normal li mits on the coronal images. Osseous structures are demineralized. Vertebral body heights and disc sp cailin heights are maintained. Spinal canal preserved. Calcified plaque along the carotid arteries bilat erally is seen with moderate to severe focal plaque at left carotid bulb noted. 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 Lung apices show no pneumothorax. Right apical scar or spicu lated nodule image 101 is similar to prior chest CTs. Incidental lack of dentition with impacted mola r teeth seen bilaterally. IMPRESSION: 1. There is no acute fracture or dislocation evident in the cervical spine. 2. No acute intracranial hemorrhage or midline shift is seen.
[2021-10-11] MEDS ORDERED: NALOXONE 0.4 MG/ML 1 ML VIAL IV PRN (17:05)
[2021-10-11] MEDS ORDERED: THIAMINE 100 MG/ML 2 ML VIAL IM STA (17:23)
[2021-10-11] MEDS ORDERED: LORazepam 2 MG/ML INJ IV PRN ×3 (17:23)
[2021-10-11] MEDS ORDERED: SODIUM CHLORIDE 3%(HYPERTONIC) 500 ML IV SCH ×2 (18:15→23:45)
[2021-10-11 18:24] LABS: Glucose,Whole Blood 83 mg/dL (75-99)
[2021-10-11 18:54] LABS: ALT 23 U/L (4-49); African American GFR (CKD) >90 (>60 ml/min/1.73 sqM); Albumin 3.2 g/dL (3.5-5.0); Anion Gap 11 mmol/L; Blood Urea Nitrogen 4 mg/dL (9-20); Calcium 7.6 mg/dL (8.4-10.2); Carbon Dioxide 13 mmol/L (22-30); Chloride 87 mmol/L (98-107); Glucose 69 mg/dL (74-99); Non-African American GFR(CKD) >90 (>60 ml/min/1.73 sqM); Total Bilirubin 1.2 mg/dL (0.2-1.3); Total Protein 6.6 g/dL (6.3-8.2)
[2021-10-11 19:04] LABS: AST 55 U/L (17-59); Alkaline Phosphatase 89 U/L (38-126); Potassium 4.2 mmol/L (3.5-5.1); Sodium 111 mmol/L (137-145)
[2021-10-11 19:35] LABS: Glucose,Whole Blood 91 mg/dL (75-99)
[2021-10-11] MEDS ORDERED: ACETAMINOPHEN TAB 325 MG TAB PO PRN (20:55)
[2021-10-11 23:02] LABS: African American GFR (CKD) >90 (>60 ml/min/1.73 sqM); Anion Gap 5 mmol/L; Blood Urea Nitrogen 5 mg/dL (9-20); Calcium 7.5 mg/dL (8.4-10.2); Carbon Dioxide 20 mmol/L (22-30); Chloride 88 mmol/L (98-107); Glucose 101 mg/dL (74-99); Non-African American GFR(CKD) >90 (>60 ml/min/1.73 sqM); Potassium 3.9 mmol/L (3.5-5.1)
[2021-10-11 23:17] LABS: Sodium 113 mmol/L (137-145)
[2021-10-12 04:36] LABS: Anisocytosis Slight; Basophils % (A) 0 %; Eosinophils # (A) 0.1 k/uL (0-0.7); Eosinophils % (A) 1 %; HCT 25.9 % (39.0-53.0); HGB 7.9 gm/dL (13.0-17.5); Hypochromasia Marked; Lymphocytes # (A) 1.3 k/uL (1.0-4.8); Lymphocytes % (A) 19 %; MCHC 30.3 g/dL (31.0-37.0); MCV 72.6 fL (80.0-100.0); Mean Platelet Volume 7.9; Microcytosis Moderate; Monocytes # (A) 0.3 k/uL (0-1.0); Monocytes % (A) 5 %; Neutrophils # (A) 5.3 k/uL (1.3-7.7); Neutrophils % (A) 73 %; Platelet Count 273 k/uL (150-450); Poikilocytosis Slight; RBC 3.57 m/uL (4.30-5.90); RDW 19.3 % (11.5-15.5); WBC 7.2 k/uL (3.8-10.6)
[2021-10-12 04:42] LABS: African American GFR (CKD) >90 (>60 ml/min/1.73 sqM); Anion Gap 5 mmol/L; Blood Urea Nitrogen 5 mg/dL (9-20); Calcium 7.8 mg/dL (8.4-10.2); Carbon Dioxide 19 mmol/L (22-30); Chloride 93 mmol/L (98-107); Glucose 80 mg/dL (74-99); Non-African American GFR(CKD) >90 (>60 ml/min/1.73 sqM); Potassium 3.8 mmol/L (3.5-5.1)
[2021-10-12 05:07] LABS: Sodium 117 mmol/L (137-145)
[2021-10-12] MEDS ORDERED: Potassium Replacement Protocol 1 EACH MISC MISCELLANE PRN (06:57)
[2021-10-12] MEDS ORDERED: POTASSIUM CHLORIDE ER 20 MEQ TAB.ER PO SCH (07:00)
[2021-10-12] MEDS: THIAMINE 100 MG TAB PO SCH ×2 (07:08→18:51)
[2021-10-12] MEDS ORDERED: RX INFO: IV CONTRAST WAS GIVEN 1 EACH MISC MISCELLANE PRN (08:25)
--- NOTE | 2021-10-12 10:19 | CT ---
EXAMINATION TYPE: CT chest w con DATE OF EXAM: 10/12/2021 COMPARISON: 04/24/2021 HISTORY: lung mass CT DLP: 344.1 mGycm Automated exposure control for dose reduction was used. CONTRAST: CT scan of the chest is performed with IV Contrast, patient injected with 100 mL of Isovue 300. FINDINGS: LUNGS: Spiculated non mass density Right upper lobe persists and measures 1.2 cm versus 1.6 cm previo usly. Enlarging mass with pleural extension right upper lobe posterior laterally currently measures 3 .3 x 2.3 cm versus 2.7 x 2.5 cm previously. This is felt to reflect malignancy until proven otherwise . Medially there is an additional enlarging mass measuring 2.1 x 1.3 cm versus 1.6 cm previously. An additional mass is noted right upper lobe with spiculation measuring 2.1 x 1.8 cm versus 2.3 x 2.0 cm previously. Dependent basilar atelectasis. No additional nodules seen. MEDIASTINUM: There are no greater than 1 cm hilar or mediastinal lymph nodes. No pericardial effusi on is seen. Thoracic aorta is of normal caliber. The heart is not enlarged. UPPER ABDOMEN: Right adrenal nodule measures 1.1 cm versus 1.3 cm measured previously. Left adrenal g land as visualized is unremarkable. Suspect a couple of small gallstones. Probable hepatic cysts are stable. OTHER: No additional significant abnormality is seen. IMPRESSION: 1. Enlarging right upper lobe pulmonary masses felt to reflect malignancy until proven otherwise. No new nodules seen. No evidence for adenopathy.
[2021-10-12] MEDS ORDERED: DEXTROSE 5% IN WATER 1,000 ML IV ONE (10:33)
[2021-10-12] MEDS ORDERED: FAMOTIDINE 20 MG TAB PO PRN (10:55)
--- NOTE | 2021-10-12 11:52 | P.NPCON ---
History of Present Illness - Reason for Consult hyponatremia - History of Present Illness Patient is a 66-year-old male who was admitted to the hospital with complaints of increased weakness, not feeling well and history of fall at home. Patient denies any history of nausea vomiting abdominal pain or diarrhea. He states that he had not been eating much over the past few days. No significant change in medications No previous history of hyponatremia Serum sodium was 108 on initial admission. Patient was started on 3% saline. Serum sodium improved to 113 and then it jumped up to 117. 3% saline has been discontinued and patient has been switched to D5W due to rapid increase in his sodium. Mentation is normal. Patient denies any significant complaints today. He is tolerating oral intake well. Urine sodium was less than 20 and urine osmolality was 267 Review of Systems As per HPI other systems negative Past Medical History Past Medical History: Cancer, GERD/Reflux, Hypertension Additional Past Medical History / Comment(s): paralyzed vocal cord, SKIN CANCER(FACE), mass in lungs History of Any Multi-Drug Resistant Organisms: None Reported Past Surgical History: Orthopedic Surgery Additional Past Surgical History / Comment(s): triple endoscopy, LT KNEE SCOPE, LT KNEE MENISCUS SX Past Anesthesia/Blood Transfusion Reactions: No Reported Reaction Additional Past Anesthesia/Blood Transfusion Reaction / Comment(s): . Past Psychological History: No Psychological Hx Reported Additional Psychological History / Comment(s): . Smoking Status: Current every day smoker Past Alcohol Use History: Daily Additional Past Alcohol Use History / Comment(s): Pt started smoking in 1972 and is currently 1 ppd smoker. Past Drug Use History: None Reported - Past Family History Father Family Medical History: Congestive Heart Failure (CHF), Myocardial Infarction ([place]) Mother Family Medical History: No Reported History Additional Family Medical History / Comment(s): MOM IS IN GOOD HEALTH AT AGE 96 Medications and Allergies Home Medications Medication Instructions Recorded Confirmed Type Omeprazole Magnesium [PriLOSEC OTC] 20 mg PO DAILY PRN 06/14/21 10/11/21 History Acetaminophen Tab [Tylenol Tab] 1,000 mg PO Q6H PRN 10/11/21 10/11/21 History Famotidine [Pepcid] 20 mg PO DAILY PRN 10/11/21 10/11/21 History amLODIPine [Norvasc] 10 mg PO DAILY 10/11/21 10/11/21 History diphenhydrAMINE [Benadryl] 25 - 50 mg PO HS PRN 10/11/21 10/11/21 History Allergies Allergy/AdvReac Type Severity Reaction Status Date / Time No Known Allergies Allergy Verified 10/11/21 17:16 Physical Exam Vitals: Vital Signs Temp Pulse Pulse Resp BP Pulse Ox 10/12/21 11:00 84 14 108/80 95 10/12/21 10:00 83 17 92/55 92 L 10/12/21 09:30 77 10 L 109/66 97 10/12/21 09:00 80 13 95/64 90 L 10/12/21 08:30 78 14 103/43 96 10/12/21 08:00 97.7 F 87 21 117/89 91 L 10/12/21 07:30 95 19 115/79 90 L 10/12/21 07:00 86 16 101/72 95 10/12/21 06:30 70 10 L 120/68 96 10/12/21 06:00 68 14 120/70 97 10/12/21 05:30 71 120/90 97 10/12/21 05:00 77 18 118/102 95 10/12/21 04:30 85 14 128/76 98 10/12/21 04:00 97.8 F 79 81 16 121/80 98 10/12/21 03:30 76 118/78 99 10/12/21 03:00 73 20 100/73 95 10/12/21 02:30 74 105/66 99 10/12/21 02:00 73 14 124/72 97 10/12/21 01:30 73 14 108/82 100 10/12/21 01:00 74 13 121/79 97 10/12/21 00:30 75 21 120/80 98 10/12/21 00:00 99.1 F 80 18 118/78 95 10/11/21 23:40 80 12 10/11/21 23:30 80 12 106/64 94 L 10/11/21 23:00 82 23 91/56 96 10/11/21 22:30 85 16 97/64 98 10/11/21 22:00 89 20 105/76 97 10/11/21 21:30 91 23 92/76 95 10/11/21 21:00 88 19 103/70 97 10/11/21 20:30 93 8 L 94/60 97 05/18/22 20:00 98.4 F 87 88 17 94/68 97 10/11/21 19:30 90 15 134/59 98 10/11/21 19:00 91 22 120/85 99 10/11/21 18:30 97.4 F L 82 16 154/85 98 10/11/21 17:51 87 16 141/79 100 10/11/21 14:04 96.0 F L 79 18 108/77 99 Intake and Output 10/11/21 10/12/21 10/12/21 22:59 06:59 14:59 Intake Total 240 160 50 Output Total 550 0 Balance -310 160 50 Intake: IV 90 160 50 Dextrose 5% in Water 1, 50 000 ml @ 50 mls/hr IV . Q20H ONE Rx#:[id number] Sodium Chloride 3%( 90 160 0 Hypertonic) 500 ml @ 30 mls/hr IV .[id number] [facility] Rx #:[id number] Intake, IV Titration 30 Amount Sodium Chloride 3%( 30 Hypertonic) 500 ml @ 30 mls/hr IV .[id number] [facility] Rx #:[id number] Oral 120 Output: Urine 550 0 Other: # Voids 1 0 # Bowel Movements 1 Weight 63.9 kg 64.5 kg Awake, comfortable, not in any acute distress Alert oriented 3 Examination of the heart S1 and S2 Examination lungs bilateral breath sounds are heard Abdomen is soft nontender Examination of the lower extremities shows no evidence of edema [employer] exam grossly intact Results - Lab Results Most recent lab results Calcium 7.8 mg/dL (8.4-10.2) L 10/12/21 04:00 Phosphorus 2.8 mg/dL (2.5-4.5) 10/11/21 15:02 Magnesium 1.5 mg/dL (1.6-2.3) L 10/11/21 15:02 10/12/21 04:00 10/12/21 07:48 Assessment and Plan Assessment: 1. Hyponatremia appears to be hypovolemic. However given the significantly low sodium patient was started on 3% saline. Serum sodium increased to 117 and at that time 3% saline was discontinued however it further increased to 121 and now patient has been started on D5W. Urine sodium was less than 10 and urine osmolality was 267. 2. Weakness, lethargy secondary to severe hyponatremia 3. Anemia, no active bleeding noted, rule out iron deficiency Plan: Increase D5W Repeat sodium in 4 hours Check iron profile Encouraged to maintain good oral intake
[2021-10-12] MEDS: MAGNESIUM SULFATE-D5W PMX 1 GM in DEXTROSE/WATER 1 100ML.BAG IVPB SCH ×2 (12:53→13:59)
--- NOTE | 2021-10-12 13:15 | P.CNPUL ---
History of Present Illness Consult date: 10/12/21 Requesting physician: Corwin Santoyo Reason for consult: lung mass, other (Hyponatremia) Chief complaint: Weakness History of present illness: This is a 66-year-old white male with history of alcohol abuse, history of chronic hyponatremia, history of right upper lobe lung mass, previous navigation al bronchoscopy on this patient was nondiagnostic. However the right upper lobe mass has been growing in size, and it is becoming highly suspicious for underlying bronchogenic carcinoma. Patient had previous navigational bronchoscopy on May 2020, and this was done by Dr. Garcia. Repeat CT of the chest in March of 2021, clearly showed an enlarging spiculated nodule in the right upper lobe anteriorly. I believe the patient has not been very compliant person with follow-ups, and now that he came in with mostly weakness for the last 2 weeks, patient was noted to be hyponatremic with sodium of 108, and his chest x-ray showed enlarging right upper lobe lung nodule/lung mass. CT of the chest confirmed the finding, however the patient remains hyponatremic, and he will eventually require tissue biopsy, this could be done either by repeat navigational bronchoscopy or possibly CT-guided needle biopsy by interventional radiology. This is yet to be decided on outpatient basis patient has no active pulmonary symptoms. CT of the chest on this admission clearly showed an enlarging right upper lobe mass however the remaining nodules noted previously are basically about the same. Previous PET scan on this patient showed abnormal uptake with a spiculated lesions within the chest, and pleural extension and his last PET scan was basically in February of 2020 no follow-up PET scan done since then. Review of Systems CONSTITUTIONAL: Generalized weakness, and some weight loss. Patient could not be specific about his weight loss. HEENT: Negative. CARDIOVASCULAR: Negative RESPIRATORY: Negative GASTROINTESTINAL: Poor appetite and weight loss. HEMATOLOGIC: Negative GENITOURINARY: Negative SKIN: No rashes. Psychiatric: Negative Urologic: Negative Musculoskeletal: Weakness Past Medical History Past Medical History: Cancer, GERD/Reflux, Hypertension Additional Past Medical History / Comment(s): paralyzed vocal cord, SKIN CANCER(FACE), mass in lungs History of Any Multi-Drug Resistant Organisms: None Reported Past Surgical History: Orthopedic Surgery Additional Past Surgical History / Comment(s): triple endoscopy, LT KNEE SCOPE, LT KNEE MENISCUS SX Past Anesthesia/Blood Transfusion Reactions: No Reported Reaction Additional Past Anesthesia/Blood Transfusion Reaction / Comment(s): . Past Psychological History: No Psychological Hx Reported Additional Psychological History / Comment(s): . Smoking Status: Current every day smoker Past Alcohol Use History: Daily Additional Past Alcohol Use History / Comment(s): Pt started smoking in 1972 and is currently 1 ppd smoker. Past Drug Use History: None Reported - Past Family History Father Family Medical History: Congestive Heart Failure (CHF), Myocardial Infarction ([place]) Mother Family Medical History: No Reported History Additional Family Medical History / Comment(s): MOM IS IN GOOD HEALTH AT AGE 96 Medications and Allergies Home Medications Medication Instructions Recorded Confirmed Type Omeprazole Magnesium [PriLOSEC OTC] 20 mg PO DAILY PRN 06/14/21 10/11/21 History Acetaminophen Tab [Tylenol Tab] 1,000 mg PO Q6H PRN 10/11/21 10/11/21 History Famotidine [Pepcid] 20 mg PO DAILY PRN 10/11/21 10/11/21 History amLODIPine [Norvasc] 10 mg PO DAILY 10/11/21 10/11/21 History diphenhydrAMINE [Benadryl] 25 - 50 mg PO HS PRN 10/11/21 10/11/21 History Allergies Allergy/AdvReac Type Severity Reaction Status Date / Time No Known Allergies Allergy Verified 10/11/21 17:16 Physical Exam Vitals: Vital Signs Temp Pulse Pulse Resp BP Pulse Ox 10/12/21 12:00 97.7 F 73 14 91/67 96 10/12/21 11:00 84 14 108/80 95 10/12/21 10:00 83 17 92/55 92 L 10/12/21 09:30 77 10 L 109/66 97 10/12/21 09:00 80 13 95/64 90 L 10/12/21 08:30 78 14 103/43 96 10/12/21 08:00 97.7 F 87 21 117/89 91 L 10/12/21 07:30 95 19 115/79 90 L 10/12/21 07:00 86 16 101/72 95 10/12/21 06:30 70 10 L 120/68 96 10/12/21 06:00 68 14 120/70 97 10/12/21 05:30 71 120/90 97 10/12/21 05:00 77 18 118/102 95 10/12/21 04:30 85 14 128/76 98 10/12/21 04:00 97.8 F 79 81 16 121/80 98 10/12/21 03:30 76 118/78 99 10/12/21 03:00 73 20 100/73 95 10/12/21 02:30 74 105/66 99 10/12/21 02:00 73 14 124/72 97 10/12/21 01:30 73 14 108/82 100 10/12/21 01:00 74 13 121/79 97 10/12/21 00:30 75 21 120/80 98 10/12/21 00:00 99.1 F 80 18 118/78 95 10/11/21 23:40 80 12 10/11/21 23:30 80 12 106/64 94 L 10/11/21 23:00 82 23 91/56 96 10/11/21 22:30 85 16 97/64 98 10/11/21 22:00 89 20 105/76 97 10/11/21 21:30 91 23 92/76 95 10/11/21 21:00 88 19 103/70 97 10/11/21 20:30 93 8 L 94/60 97 10/11/21 20:00 98.4 F 87 88 17 94/68 97 10/11/21 19:30 90 15 134/59 98 10/11/21 19:00 91 22 120/85 99 10/11/21 18:30 97.4 F L 82 16 154/85 98 10/11/21 17:51 87 16 141/79 100 10/11/21 14:04 96.0 F L 79 18 108/77 99 Intake and Output 10/11/21 10/12/21 10/12/21 22:59 06:59 14:59 Intake Total 240 160 100 Output Total 550 0 100 Balance -310 160 0 Intake: IV 90 160 100 Dextrose 5% in Water 1, 100 000 ml @ 50 mls/hr IV . Q20H [facility] Rx#:[id number] Sodium Chloride 3%( 90 160 0 Hypertonic) 500 ml @ 30 mls/hr IV .[id number] [facility] Rx #:[id number] Intake, IV Titration 30 Amount Sodium Chloride 3%( 30 Hypertonic) 500 ml @ 30 mls/hr IV .[id number] [facility] Rx #:[id number] Oral 120 Output: Urine 550 0 100 Other: # Voids 1 0 # Bowel Movements 1 Weight 63.9 kg 64.5 kg Physical Exam: Revealed a 66-year-old white male in no distress, looks frail, and chronically ill. Head: Atraumatic, normocephalic. HEENT:[Neck is supple.] [No neck masses.] [No thyromegaly.] [No JVD.] Chest: [Clear throughout, no crackles, no rhonchi, no wheezes.] Cardiac Exam: [Normal S1 and S2, no S3 gallop, no murmur.] Abdomen: [Soft, nontender, no megaly, no rebound, no guarding, normal bowel sounds.] Extremities: [No clubbing, no edema, no cyanosis.] Neurological Exam: [No focal neurologic deficit.] Alert and oriented 3. Psychiatric: Normal mood, affect and normal mental status examination. Skin: No rashes Results - Laboratory Findings CBC and BMP: 10/12/21 04:00 10/12/21 07:48 PT/INR, D-dimer PT 11.1 sec (9.0-12.0) 10/11/21 15:02 INR 1.0 (<1.2) 10/11/21 15:02 Abnormal lab findings: Abnormal Labs 10/11/21 10/11/21 10/11/21 15:02 15:02 15:02 RBC 3.67 L Hgb 8.0 L Hct 25.9 L MCV 70.7 L MCH 21.7 L MCHC 30.7 L RDW 19.0 H APTT 30.1 H Sodium Chloride Carbon Dioxide BUN Creatinine Glucose Calcium Magnesium Creatine Kinase Albumin Urine Ketones 1+ H Ur Random Sodium 10/11/21 10/11/21 10/11/21 15:02 18:30 18:35 RBC Hgb Hct MCV MCH MCHC RDW APTT Sodium 108 L* 111 L* Chloride 83 L 87 L Carbon Dioxide 20 L 13 L BUN 5 L 4 L Creatinine 0.53 L 0.47 L Glucose 69 L Calcium 7.6 L 7.6 L Magnesium 1.5 L Creatine Kinase 541 H Albumin 3.0 L 3.2 L Urine Ketones Ur Random Sodium <20 L 10/11/21 10/12/21 10/12/21 22:50 00:14 04:00 RBC Hgb Hct MCV MCH MCHC RDW APTT Sodium 113 L* 113 L* 117 L* Chloride 88 L 93 L Carbon Dioxide 20 L 19 L BUN 5 L 5 L Creatinine 0.58 L 0.60 L Glucose 101 H Calcium 7.5 L 7.8 L Magnesium Creatine Kinase Albumin Urine Ketones Ur Random Sodium 10/12/21 10/12/21 04:00 07:48 RBC 3.57 L Hgb 7.9 L Hct 25.9 L MCV 72.6 L MCH 22.0 L MCHC 30.3 L RDW 19.3 H APTT Sodium 121 L Chloride Carbon Dioxide BUN Creatinine Glucose Calcium Magnesium Creatine Kinase Albumin Urine Ketones Ur Random Sodium Assessment and Plan Assessment: Impression: Hyponatremia could be secondary to hypovolemia or could be secondary to underlying SIADH from underlying bronchogenic carcinoma. Lung mass highly suspicious for bronchogenic carcinoma will eventually need outpatient follow-up, PET scan, possible repeat navigational bronchoscopy and/or CT-guided needle biopsy of the right upper lobe nodule, patient follows up with Dr. Garcia for his abnormal CT of the chest. Chronic anemia and history of chronic gastritis, history of colonic polyps. History of vocal cord paralysis Benign essential hypertension Tobacco dependence syndrome History of underlying COPD presently inactive History of alcoholism Chronic anorexia and weight loss. Recommendation: Continue present supportive care measures Continue to monitor in the ICU. Continue to monitor sodium closely considering the rapid correction over the last 12 hours, patient was placed on D5W at 50 mL per hour Discontinue 3% saline Once his sodium corrects to the mid 120 range, patient could be transferred out of the ICU and monitored on a regular medical floor. Patient will eventually need follow-up on outpatient basis, repeat PET scan, and he should have a follow-up appointment with Dr. Garcia who is very familiar with this patient from previous encounter. We will continue to follow until the patient is discharged home. Consider discharging the patient home by this weekend. Should have follow-up in our office in one week with Dr. Garcia Time with Patient: Greater than 30
--- NOTE | 2021-10-12 13:27 | P.HPIM ---
History of Present Illness 66-year-old male came in with complaints of of increasing weakness found to have severe hyponatremia with a serum sodium being 113. Patient had similar complaints in the past, patient does drink alcohol on daily basis does drink bee r. Patient also has a mass in the right upper lobe because of which there was a concern of SIADH, patient had hospital physician in the past with similar complaints. Patient was started on 3% saline because of her rapid increase in serum sodium patient is presently on D5 water. Patient was a sodium is 121. Patient also has low magnesium which is being replaced. Patient's serum osmolality is 267. REVIEW OF SYSTEMS: CONSTITUTIONAL: As mentioned in HPI HEENT: No recent visual problems or hearing problems. Denied any sore throat. CARDIOVASCULAR: No chest pain, orthopnea, PND, no palpitations, no syncope. PULMONARY: No shortness of breath, no cough, no hemoptysis. GASTROINTESTINAL: No diarrhea, no nausea, no vomiting, no abdominal pain. NEUROLOGICAL: No headaches, no weakness, no numbness. HEMATOLOGICAL: Denies any bleeding or petechiae. GENITOURINARY: Denies any burning micturition, frequency, or urgency. MUSCULOSKELETAL/RHEUMATOLOGICAL: Denies any joint pain, swelling, or any muscle pain. ENDOCRINE: Denies any polyuria or polydipsia. The rest of the 14-point review of systems is negative. PHYSICAL EXAMINATION: GENERAL: The patient is alert and oriented x3, not in any acute distress. Well developed, well nourished. HEENT: Pupils are round and equally reacting to light. EOMI. No scleral icterus. No conjunctival pallor. Normocephalic, atraumatic. No pharyngeal erythema. No thyromegaly. CARDIOVASCULAR: S1 and S2 present. No murmurs, rubs, or gallops. PULMONARY: Chest is clear to auscultation, no wheezing or crackles. ABDOMEN: Soft, nontender, nondistended, normoactive bowel sounds. No palpable organomegaly. MUSCULOSKELETAL: No joint swelling or deformity. EXTREMITIES: No cyanosis, clubbing, or pedal edema. NEUROLOGICAL: Gross neurological examination did not reveal any focal deficits. SKIN: No rashes. Assessment and plan -Hyponatremia appears to be acute appears to be both secondary to hypovolemia and there may be a competent of SIADH as well, patient has a spiculated mass in the right upper lung regalado for which patient underwent will undergo navigational bronchoscopy tomorrow. 3% saline was discontinued because of rapid raise in serum sodium and patient is presently on D5 water and patient is being closely monitored in intensive care unit -Lung mass as mentioned above -Chronic and deficiency anemia for which patient is on iron supplementation -Hypertension -COPD without any acute exacerbation continued according use -Alcohol abuse: Counseling was provided patient is being monitored for withdrawals patient is also on Ativan CW protocol -Transaminitis secondary to alcoholism DVT prophylaxis: Lovenox Past Medical History Past Medical History: Cancer, GERD/Reflux, Hypertension Additional Past Medical History / Comment(s): paralyzed vocal cord, SKIN CANCER(FACE), mass in lungs History of Any Multi-Drug Resistant Organisms: None Reported Past Surgical History: Orthopedic Surgery Additional Past Surgical History / Comment(s): triple endoscopy, LT KNEE SCOPE, LT KNEE MENISCUS SX Past Anesthesia/Blood Transfusion Reactions: No Reported Reaction Additional Past Anesthesia/Blood Transfusion Reaction / Comment(s): . Past Psychological History: No Psychological Hx Reported Additional Psychological History / Comment(s): . Smoking Status: Current every day smoker Past Alcohol Use History: Daily Additional Past Alcohol Use History / Comment(s): Pt started smoking in 1972 and is currently 1 ppd smoker. Past Drug Use History: None Reported - Past Family History Father Family Medical History: Congestive Heart Failure (CHF), Myocardial Infarction (MS) Mother Family Medical History: No Reported History Additional Family Medical History / Comment(s): MOM IS IN GOOD HEALTH AT AGE 96 Medications and Allergies Home Medications Medication Instructions Recorded Confirmed Type Omeprazole Magnesium [PriLOSEC OTC] 20 mg PO DAILY PRN 06/14/21 10/11/21 History Acetaminophen Tab [Tylenol Tab] 1,000 mg PO Q6H PRN 10/11/21 10/11/21 History Famotidine [Pepcid] 20 mg PO DAILY PRN 10/11/21 10/11/21 History amLODIPine [Norvasc] 10 mg PO DAILY 10/11/21 10/11/21 History diphenhydrAMINE [Benadryl] 25 - 50 mg PO HS PRN 10/11/21 10/11/21 History Allergies Allergy/AdvReac Type Severity Reaction Status Date / Time No Known Allergies Allergy Verified 10/11/21 17:16 Physical Exam Vitals: Vital Signs Temp Pulse Pulse Resp BP Pulse Ox 10/12/21 13:00 87 24 102/73 90 L 10/12/21 12:00 97.7 F 73 14 91/67 96 10/12/21 11:00 84 14 108/80 95 10/12/21 10:00 83 17 92/55 92 L 10/12/21 09:30 77 10 L 109/66 97 10/12/21 09:00 80 13 95/64 90 L 10/12/21 08:30 78 14 103/43 96 10/12/21 08:00 97.7 F 87 21 117/89 91 L 10/12/21 07:30 95 19 115/79 90 L 10/12/21 07:00 86 16 101/72 95 10/12/21 06:30 70 10 L 120/68 96 10/12/21 06:00 68 14 120/70 97 10/12/21 05:30 71 120/90 97 10/12/21 05:00 77 18 118/102 95 10/12/21 04:30 85 14 128/76 98 10/12/21 04:00 97.8 F 79 81 16 121/80 98 10/12/21 03:30 76 118/78 99 10/12/21 03:00 73 20 100/73 95 10/12/21 02:30 74 105/66 99 10/12/21 02:00 73 14 124/72 97 10/12/21 01:30 73 14 108/82 100 10/12/21 01:00 74 13 121/79 97 10/12/21 00:30 75 21 120/80 98 10/12/21 00:00 99.1 F 80 18 118/78 95 10/11/21 23:40 80 12 10/11/21 23:30 80 12 106/64 94 L 10/11/21 23:00 82 23 91/56 96 10/11/21 22:30 85 16 97/64 98 10/11/21 22:00 89 20 105/76 97 10/11/21 21:30 91 23 92/76 95 10/11/21 21:00 88 19 103/70 97 10/11/21 20:30 93 8 L 94/60 97 10/11/21 20:00 98.4 F 87 88 17 94/68 97 05/18/22 19:30 90 15 134/59 98 10/11/21 19:00 91 22 120/85 99 10/11/21 18:30 97.4 F L 82 16 154/85 98 10/11/21 17:51 87 16 141/79 100 10/11/21 14:04 96.0 F L 79 18 108/77 99 Intake and Output 10/11/21 10/12/21 10/12/21 22:59 06:59 14:59 Intake Total 240 160 250 Output Total 550 0 100 Balance -310 160 150 Intake: IV 90 160 250 Dextrose 5% in Water 1, 150 000 ml @ 50 mls/hr IV . Q20H [facility] Rx#:[id number] Magnesium Sulfate-D5w Pmx 100 1 gm In Dextrose/Water 1 100ml.bag @ 100 mls/hr IVPB Q1H [facility] Rx#: [id number] Sodium Chloride 3%( 90 160 0 Hypertonic) 500 ml @ 30 mls/hr IV .[id number] [facility] Rx #:[id number] Intake, IV Titration 30 Amount Sodium Chloride 3%( 30 Hypertonic) 500 ml @ 30 mls/hr IV .[id number] [facility] Rx #:[id number] Oral 120 Output: Urine 550 0 100 Other: # Voids 1 0 # Bowel Movements 1 Weight 63.9 kg 64.5 kg Results CBC & Chem 7: 10/12/21 04:00 10/12/21 07:48 Labs: Abnormal Lab Results - Last 24 Hours (Table) 10/11/21 10/11/21 10/11/21 Range/Units 15:02 15:02 15:02 RBC 3.67 L (4.30-5.90) m/uL Hgb 8.0 L (13.0-17.5) gm/dL Hct 25.9 L (39.0-53.0) % MCV 70.7 L (80.0-100.0) fL MCH 21.7 L (25.0-35.0) pg MCHC 30.7 L (31.0-37.0) g/dL RDW 19.0 H (11.5-15.5) % APTT 30.1 H (22.0-30.0) sec Sodium (137-145) mmol/L Chloride (98-107) mmol/L Carbon Dioxide (22-30) mmol/L BUN (9-20) mg/dL Creatinine (0.66-1.25) mg/dL Glucose (74-99) mg/dL Calcium (8.4-10.2) mg/dL Magnesium (1.6-2.3) mg/dL Creatine Kinase (55-170) U/L Albumin (3.5-5.0) g/dL Urine Ketones 1+ H (Negative) Ur Random Sodium (40-220) mmol/L 10/11/21 10/11/21 10/11/21 Range/Units 15:02 18:30 18:35 RBC (4.30-5.90) m/uL Hgb (13.0-17.5) gm/dL Hct (39.0-53.0) % MCV (80.0-100.0) fL MCH (25.0-35.0) pg MCHC (31.0-37.0) g/dL RDW (11.5-15.5) % APTT (22.0-30.0) sec Sodium 108 L* 111 L* (137-145) mmol/L Chloride 83 L 87 L (98-107) mmol/L Carbon Dioxide 20 L 13 L (22-30) mmol/L BUN 5 L 4 L (9-20) mg/dL Creatinine 0.53 L 0.47 L (0.66-1.25) mg/dL Glucose 69 L (74-99) mg/dL Calcium 7.6 L 7.6 L (8.4-10.2) mg/dL Magnesium 1.5 L (1.6-2.3) mg/dL Creatine Kinase 541 H (55-170) U/L Albumin 3.0 L 3.2 L (3.5-5.0) g/dL Urine Ketones (Negative) Ur Random Sodium <20 L (40-220) mmol/L 10/11/21 10/12/21 10/12/21 Range/Units 22:50 00:14 04:00 RBC (4.30-5.90) m/uL Hgb (13.0-17.5) gm/dL Hct (39.0-53.0) % MCV (80.0-100.0) fL MCH (25.0-35.0) pg MCHC (31.0-37.0) g/dL RDW (11.5-15.5) % APTT (22.0-30.0) sec Sodium 113 L* 113 L* 117 L* (137-145) mmol/L Chloride 88 L 93 L (98-107) mmol/L Carbon Dioxide 20 L 19 L (22-30) mmol/L BUN 5 L 5 L (9-20) mg/dL Creatinine 0.58 L 0.60 L (0.66-1.25) mg/dL Glucose 101 H (74-99) mg/dL Calcium 7.5 L 7.8 L (8.4-10.2) mg/dL Magnesium (1.6-2.3) mg/dL Creatine Kinase (55-170) U/L Albumin (3.5-5.0) g/dL Urine Ketones (Negative) Ur Random Sodium (40-220) mmol/L 10/12/21 10/12/21 Range/Units 04:00 07:48 RBC 3.57 L (4.30-5.90) m/uL Hgb 7.9 L (13.0-17.5) gm/dL Hct 25.9 L (39.0-53.0) % MCV 72.6 L (80.0-100.0) fL MCH 22.0 L (25.0-35.0) pg MCHC 30.3 L (31.0-37.0) g/dL RDW 19.3 H (11.5-15.5) % APTT (22.0-30.0) sec Sodium 121 L (137-145) mmol/L Chloride (98-107) mmol/L Carbon Dioxide (22-30) mmol/L BUN (9-20) mg/dL Creatinine (0.66-1.25) mg/dL Glucose (74-99) mg/dL Calcium (8.4-10.2) mg/dL Magnesium (1.6-2.3) mg/dL Creatine Kinase (55-170) U/L Albumin (3.5-5.0) g/dL Urine Ketones (Negative) Ur Random Sodium (40-220) mmol/L Thrombosis Risk Factor Assmnt - Choose All That Apply Any of the Below Risk Factors Present?: No Other Risk Factors: Yes Each Risk Factor Represents 2 Points: Age 61-74 years Other congenital or acquired thrombophilia - If yes, enter type in comment: No Thrombosis Risk Factor Assessment Total Risk Factor Score: 2 Thrombosis Risk Factor Assessment Level: Low Risk
[2021-10-12] MEDS ORDERED: DEXTROSE 5% IN WATER 1,000 ML IV SCH (23:00)
[2021-10-13 06:09] LABS: African American GFR (CKD) >90 (>60 ml/min/1.73 sqM); Anion Gap 4 mmol/L; Blood Urea Nitrogen 8 mg/dL (9-20); Calcium 7.6 mg/dL (8.4-10.2); Carbon Dioxide 20 mmol/L (22-30); Chloride 94 mmol/L (98-107); Glucose 90 mg/dL (74-99); Magnesium 1.8 mg/dL (1.6-2.3); Non-African American GFR(CKD) >90 (>60 ml/min/1.73 sqM)
[2021-10-13 06:13] LABS: Sodium 118 mmol/L (137-145)
[2021-10-13] MEDS: THIAMINE 100 MG TAB PO SCH ×2 (07:21→17:53)
--- NOTE | 2021-10-13 10:24 | P.PN ---
Subjective Patient is seen for follow-up for hyponatremia. Mostly hypovolemic however given the significantly low sodium patient was started on 3% saline. Serum sodium was 108 on initial admission. Patient was started on 3% saline. Sodium had increased to 121 which was a bit fast and therefore patient was started on D5W. D5W was discontinued last night when sodium had dropped back down to 114. This morning it is up to 118. Patient is eating and drinking well. Objective - Vital Signs Vital signs: Vital Signs Temp 98.4 F 10/13/21 08:00 Pulse 80 10/13/21 10:00 Resp 14 10/13/21 10:00 BP 84/56 10/13/21 10:00 Pulse Ox 93 L 10/13/21 10:00 Intake & Output 10/12/21 10/13/21 10/13/21 18:59 06:59 18:59 Intake Total 750 550 Output Total 500 425 200 Balance 250 125 -200 Weight 66.1 kg Intake: IV 750 400 Dextrose 5% in Water 1, 550 400 000 ml @ 100 mls/hr IV . Q10H [facility] Rx#:[id number] Magnesium Sulfate-D5w Pmx 200 1 gm In Dextrose/Water 1 100ml.bag @ 100 mls/hr IVPB Q1H [facility] Rx#: [id number] Sodium Chloride 3%( 0 Hypertonic) 500 ml @ 30 mls/hr IV .[id number] [facility] Rx #:[id number] Intake, IV Titration 150 Amount Dextrose 5% in Water 1, 150 000 ml @ 50 mls/hr IV . Q20H [facility] Rx#:[id number] Output: Urine 500 425 200 Other: # Voids 0 0 # Bowel Movements 1 - Exam Awake, comfortable, not in any acute distress Alert oriented 3 Examination of the heart S1 and S2 Examination of the lungs bilateral breath sounds are heard Abdomen is soft nontender Exertion lower extremity shows no evidence of edema - Labs CBC & Chem 7: 10/12/21 04:00 10/13/21 05:42 Labs: Abnormal Lab Results - Last 24 Hours (Table) 10/12/21 10/12/21 10/13/21 Range/Units 14:26 19:55 00:20 Sodium 119 L* 117 L* 114 L* (137-145) mmol/L Chloride (98-107) mmol/L Carbon Dioxide (22-30) mmol/L BUN (9-20) mg/dL Creatinine (0.66-1.25) mg/dL Calcium (8.4-10.2) mg/dL 10/13/21 Range/Units 05:42 Sodium 118 L* (137-145) mmol/L Chloride 94 L (98-107) mmol/L Carbon Dioxide 20 L (22-30) mmol/L BUN 8 L (9-20) mg/dL Creatinine 0.65 L (0.66-1.25) mg/dL Calcium 7.6 L (8.4-10.2) mg/dL Assessment and Plan Assessment: 1. Hyponatremia appears to be hypovolemic. However given the significantly low sodium patient was started on 3% saline. Serum sodium increased to 117 and at that time 3% saline was discontinued however it further increased to 121 and now patient has been started on D5W. Urine sodium was less than 10 and urine osmolality was 267. 2. Weakness, lethargy secondary to severe hyponatremia 3. Anemia, no active bleeding noted, rule out iron deficiency Plan: Continue off of D5W Repeat sodium in 4 hours Check iron profile Encouraged to maintain good oral intake Okay to transfer out of the ICU
[2021-10-13] MEDS: MAGNESIUM SULFATE-D5W PMX 1 GM in DEXTROSE/WATER 1 100ML.BAG IVPB SCH ×2 (10:26→11:42)
[2021-10-13] MEDS ORDERED: SODIUM CHLORIDE TAB 1 GM TAB PO STA (12:30)
--- NOTE | 2021-10-13 13:28 | P.PN ---
Subjective Progress Note Date: 10/13/21 Principal diagnosis: Hyponatremia, right upper lobe mass This is a 66-year-old white male with history of alcohol abuse, history of chronic hyponatremia, history of right upper lobe lung mass, previous navigational bronchoscopy on this patient was nondiagnostic. However the right upper lobe mass has been growing in size, and it is becoming highly suspicious for underlying bronchogenic carcinoma. Patient had previous navigational bronchoscopy on May 2020, and this was done by Dr. Garcia. Repeat CT of the chest in March of 2021, clearly showed an enlarging spiculated nodule in the right upper lobe anteriorly. I believe the patient has not been very compliant person with follow-ups, and now that he came in with mostly weakness for the last 2 weeks, patient was noted to be hyponatremic with sodium of 108, and his chest x-ray showed enlarging right upper lobe lung nodule/lung mass. CT of the chest confirmed the finding, however the patient remains hyponatremic, and he will eventually require tissue biopsy, this could be done either by repeat navigational bronchoscopy or possibly CT-guided needle biopsy by interventional radiology. This is yet to be decided on outpatient basis patient has no active pulmonary symptoms. CT of the chest on this admission clearly showed an enlarging right upper lobe mass however the remaining nodules noted previously are basically about the same. Previous PET scan on this patient showed abnormal uptake with a spiculated lesions within the chest, and pleural extension and his last PET scan was basically in February of 2020 no follow-up PET scan done since then. Reevaluated today on 10/13/21, patient remains in the ICU, comfortable, in no distress. Patient is on room air, O2 sats 97%. Sodium is 118 this morning, his initial sodium on presentation was 108. Patient received D5W, however his sodium went down to 114 from 121, patient is doing well, does not seem to be in any distress, sodium is being addressed by nephrology on the case. It is not clear to me whether this is a hypovolemic hyponatremia, although the patient is a gait set up for SIADH. Objective - Vital Signs Vital signs: Vital Signs Temp 97.5 F L 10/13/21 12:00 Pulse 79 10/13/21 13:00 Resp 21 10/13/21 13:00 BP 135/108 10/13/21 13:00 Pulse Ox 99 10/13/21 13:00 Intake & Output 10/12/21 10/13/21 10/13/21 18:59 06:59 18:59 Intake Total 750 550 Output Total 500 425 400 Balance 250 125 -400 Weight 66.1 kg Intake: IV 750 400 Dextrose 5% in Water 1, 550 400 000 ml @ 100 mls/hr IV . Q10H [facility] Rx#:[id number] Magnesium Sulfate-D5w Pmx 200 1 gm In Dextrose/Water 1 100ml.bag @ 100 mls/hr IVPB Q1H [facility] Rx#: [id number] Sodium Chloride 3%( 0 Hypertonic) 500 ml @ 30 mls/hr IV .[id number] [facility] Rx #:[id number] Intake, IV Titration 150 Amount Dextrose 5% in Water 1, 150 000 ml @ 50 mls/hr IV . Q20H [facility] Rx#:[id number] Output: Urine 500 425 400 Other: Voiding Method Urinal # Voids 0 0 # Bowel Movements 1 - Exam Physical Exam: Revealed a 66-year-old white male in no distress, looks frail, and chronically ill. Head: Atraumatic, normocephalic. HEENT:[Neck is supple.] [No neck masses.] [No thyromegaly.] [No JVD.] Chest: [Clear throughout, no crackles, no rhonchi, no wheezes.] Cardiac Exam: [Normal S1 and S2, no S3 gallop, no murmur.] Abdomen: [Soft, nontender, no megaly, no rebound, no guarding, normal bowel sounds.] Extremities: [No clubbing, no edema, no cyanosis.] Neurological Exam: [No focal neurologic deficit.] Alert and oriented 3. Psychiatric: Normal mood, affect and normal mental status examination. Skin: No rashes - Labs CBC & Chem 7: 10/12/21 04:00 10/13/21 10:54 Labs: Abnormal Lab Results - Last 24 Hours (Table) 10/12/21 10/12/21 10/13/21 Range/Units 14:26 19:55 00:20 Sodium 119 L* 117 L* 114 L* (137-145) mmol/L Chloride (98-107) mmol/L Carbon Dioxide (22-30) mmol/L BUN (9-20) mg/dL Creatinine (0.66-1.25) mg/dL Calcium (8.4-10.2) mg/dL 10/13/21 10/13/21 Range/Units 05:42 10:54 Sodium 118 L* 118 L* (137-145) mmol/L Chloride 94 L (98-107) mmol/L Carbon Dioxide 20 L (22-30) mmol/L BUN 8 L (9-20) mg/dL Creatinine 0.65 L (0.66-1.25) mg/dL Calcium 7.6 L (8.4-10.2) mg/dL Assessment and Plan Assessment: Impression: Hyponatremia could be secondary to hypovolemia or could be secondary to underlying SIADH from underlying bronchogenic carcinoma. Lung mass highly suspicious for bronchogenic carcinoma will eventually need outpatient follow-up, PET scan, possible repeat navigational bronchoscopy and/or CT-guided needle biopsy of the right upper lobe nodule, patient follows up with Dr. Garcia for his abnormal CT of the chest. Chronic anemia and history of chronic gastritis, history of colonic polyps. History of vocal cord paralysis Benign essential hypertension Tobacco dependence syndrome History of underlying COPD presently inactive History of alcoholism Chronic anorexia and weight loss. Recommendation: Continue to monitor in the ICU. Hyponatremia is being addressed by nephrology on the case. Patient will eventually need outpatient follow-up for his right upper lobe mass after discharge. We will need a PET scan and will also need to repeat bronchoscopy/navigational bronchoscopy and this is to be done by Dr. Reyes on outpatient basis. Once his sodium corrects to the mid 120 range, patient could be transferred out of the ICU and monitored on a regular medical floor. Time with Patient: Less than 30
--- NOTE | 2021-10-13 15:38 | P.PN ---
Subjective Progress Note Date: 10/13/21 66-year-old male came in with complaints of of increasing weakness found to have severe hyponatremia with a serum sodium being 113. Patient had similar complaints in the past, patient does drink alcohol on daily basis does drink beer. Patient also has a mass in the right upper lobe because of which there was a concern of SIADH, patient had hospital physician in the past with similar complaints. Patient was started on 3% saline because of her rapid increase in serum sodium patient is presently on D5 water. Patient was a sodium is 121. Patient also has low magnesium which is being replaced. Patient's serum osmolality is 267. 10/13/2021 Patient evaluated today in the ICU sitting in the chair. No acute events overnight. Continues on D5 gtt and sodium level most recently is 118. Magnesium 1.8 today and patient received 2 grams of IV magnesium. Blood pressure in the 90s systolic and continues off his blood pressure medications. He is on room air. Continue to monitor for acute alcohol withdrawal. He will continue on IV fluids and continue in ICU pending sodium level in the 120's and will be downgraded. He is being closely followed by pulmonary hyperion administrator and nephrology team. Review of Systems Constitutional: Denied any fatigue denied any fever. Cardio vascular: denied any chest pain, palpitations Gastrointestinal: denied any nausea, vomiting, diarrhea Pulmonary: Denied any shortness of breath cough Neurologic denied any new focal deficits All inpatient medications were reviewed and appropriate changes in these medications as dictated in the interval history and assessment and plan. PHYSICAL EXAMINATION: GENERAL: The patient is alert and oriented x3, not in any acute distress. Well developed, well nourished. HEENT: Pupils are round and equally reacting to light. EOMI. No scleral icterus. No conjunctival pallor. Normocephalic, atraumatic. No pharyngeal erythema. No t hyromegaly. CARDIOVASCULAR: S1 and S2 present. No murmurs, rubs, or gallops. PULMONARY: Chest is clear to auscultation, no wheezing or crackles. ABDOMEN: Soft, nontender, nondistended, normoactive bowel sounds. No palpable organomegaly. MUSCULOSKELETAL: No joint swelling or deformity. EXTREMITIES: No cyanosis, clubbing, or pedal edema. NEUROLOGICAL: Gross neurological examination did not reveal any focal deficits. SKIN: No rashes. Assessment and plan Assessment -Hyponatremia appears to be acute, secondary to hypovolemia and may also have a component of SIADH, patient has a spiculated mass in the right upper lung regalado. -Lung mass as mentioned above -Chronic and deficiency anemia for which patient is on iron supplementation -Hypertension -COPD without any acute exacerbation -Alcohol abuse: Counseling was provided patient is being monitored for with drawals patient is also on Ativan CIWA protocol -Transaminitis secondary to alcoholism DVT prophylaxis: Lovenox Plan Follow up with pulmonary outpatient for further evaluation of lung mass Continue on D5 gtt and repeat sodium as per nephrology Patient can be downgraded from the ICU once sodium is in the 120's. Continue to monitor for acute alcohol withdrawal The impression and plan of care has been dictated by Amarilis James, Nurse Practitioner as directed. Dr. Major MD I have performed a history and physical examination and medical decision making of this patient, discussed the same with the dictator, and agree with the dictators assessment and plan as written, documented as a scribe. Based on total visit time, I have performed more than 50% of this visit. Objective - Vital Signs Vital signs: Vital Signs Temp 98.4 F 10/13/21 08:00 Pulse 98 10/13/21 11:00 Resp 21 10/13/21 11:00 BP 98/64 10/13/21 11:00 Pulse Ox 93 L 10/13/21 11:00 Intake & Output 10/12/21 10/13/21 10/13/21 18:59 06:59 18:59 Intake Total 750 550 Output Total 500 425 400 Balance 250 125 -400 Weight 66.1 kg Intake: IV 750 400 Dextrose 5% in Water 1, 550 400 000 ml @ 100 mls/hr IV . Q10H [facility] Rx#:[id number] Magnesium Sulfate-D5w Pmx 200 1 gm In Dextrose/Water 1 100ml.bag @ 100 mls/hr IVPB Q1H [facility] Rx#: [id number] Sodium Chloride 3%( 0 Hypertonic) 500 ml @ 30 mls/hr IV .[id number] [facility] Rx #:[id number] Intake, IV Titration 150 Amount Dextrose 5% in Water 1, 150 000 ml @ 50 mls/hr IV . Q20H [facility] Rx#:[id number] Output: Urine 500 425 400 Other: Voiding Method Urinal # Voids 0 0 # Bowel Movements 1 - Labs CBC & Chem 7: 10/12/21 04:00 10/13/21 10:54 Labs: Abnormal Lab Results - Last 24 Hours (Table) 10/12/21 10/12/21 10/13/21 Range/Units 14:26 19:55 00:20 Sodium 119 L* 117 L* 114 L* (137-145) mmol/L Chloride (98-107) mmol/L Carbon Dioxide (22-30) mmol/L BUN (9-20) mg/dL Creatinine (0.66-1.25) mg/dL Calcium (8.4-10.2) mg/dL 10/13/21 Range/Units 05:42 Sodium 118 L* (137-145) mmol/L Chloride 94 L (98-107) mmol/L Carbon Dioxide 20 L (22-30) mmol/L BUN 8 L (9-20) mg/dL Creatinine 0.65 L (0.66-1.25) mg/dL Calcium 7.6 L (8.4-10.2) mg/dL Assessment and Plan Time with Patient: Less than 30
[2021-10-13] MEDS ORDERED: SODIUM CHLORIDE TAB 1 GM TAB PO ONE (21:00)
[2021-10-14] MEDS: THIAMINE 100 MG TAB PO SCH ×2 (06:47→16:20)
[2021-10-14 08:16] LABS: African American GFR (CKD) >90 (>60 ml/min/1.73 sqM); Anion Gap 5 mmol/L; Blood Urea Nitrogen 11 mg/dL (9-20); Calcium 7.9 mg/dL (8.4-10.2); Carbon Dioxide 23 mmol/L (22-30); Chloride 95 mmol/L (98-107); Glucose 124 mg/dL (74-99); Magnesium 1.8 mg/dL (1.6-2.3); Non-African American GFR(CKD) >90 (>60 ml/min/1.73 sqM); Potassium 3.9 mmol/L (3.5-5.1); Sodium 123 mmol/L (137-145)
[2021-10-14] MEDS ORDERED: SODIUM CHLORIDE 0.9% 1,000 ML IV SCH (08:30)
[2021-10-14 08:37] LABS: Anisocytosis Slight; Basophils % (A) 1 %; Eosinophils # (A) 0.1 k/uL (0-0.7); Eosinophils % (A) 2 %; HCT 26.1 % (39.0-53.0); HGB 7.6 gm/dL (13.0-17.5); Hypochromasia Marked; Lymphocytes # (A) 1.3 k/uL (1.0-4.8); Lymphocytes % (A) 26 %; MCH 21.8 pg (25.0-35.0); Mean Platelet Volume 8.1; Microcytosis Moderate; Monocytes # (A) 0.2 k/uL (0-1.0); Monocytes % (A) 3 %; Neutrophils # (A) 3.3 k/uL (1.3-7.7); Neutrophils % (A) 67 %; Platelet Count 258 k/uL (150-450); RBC 3.48 m/uL (4.30-5.90); RDW 19.1 % (11.5-15.5)
--- NOTE | 2021-10-14 10:49 | P.PN ---
Subjective Progress Note Date: 10/14/21 Principal diagnosis: Hyponatremia, right upper lobe mass This is a 66-year-old white male with history of alcohol abuse, history of chronic hyponatremia, history of right upper lobe lung mass, previous navigational bronchoscopy on this patient was nondiagnostic. However the right upper lobe mass has been growing in size, and it is becoming highly suspicious for underlying bronchogenic carcinoma. Patient had previous navigational bronchoscopy on May 2020, and this was done by Dr. Garcia. Repeat CT of the chest in March of 2021, clearly showed an enlarging spiculated nodule in the right upper lobe anteriorly. I believe the patient has not been very compliant person with follow-ups, and now that he came in with mostly weakness for the last 2 weeks, patient was noted to be hyponatremic with sodium of 108, and his chest x-ray showed enlarging right upper lobe lung nodule/lung mass. CT of the chest confirmed the finding, however the patient remains hyponatremic, and he will eventually require tissue biopsy, this could be done either by repeat navigational bronchoscopy or possibly CT-guided needle biopsy by interventional radiology. This is yet to be decided on outpatient basis patient has no active pulmonary symptoms. CT of the chest on this admission clearly showed an enlarging right upper lobe mass however the remaining nodules noted previously are basically about the same. Previous PET scan on this patient showed abnormal uptake with a spiculated lesions within the chest, and pleural extension and his last PET scan was basically in February of 2020 no follow-up PET scan done since then. Reevaluated today on 10/13/21, patient remains in the ICU, comfortable, in no distress. Patient is on room air, O2 sats 97%. Sodium is 118 this morning, his initial sodium on presentation was 108. Patient received D5W, however his sodium went down to 114 from 121, patient is doing well, does not seem to be in any distress, sodium is being addressed by nephrology on the case. It is not clear to me whether this is a hypovolemic hyponatremia, although the patient is a gait set up for SIADH. reevaluated today on 10/14/21, patient remains in the ICU, patient is doing better today compared to the last couple of days, his sodium is improving is up to 123. Patient is not receiving any IV fluids, and he is in no distress, overall the patient is doing great, and his sodium seems to be correcting very slowly. Today I recommended we start the patient on 50 mL per hour of 0.9 normal saline, I also recommended that we transfer the patient out of the ICU. And he will eventually need to be discharged home on should have follow-up with Dr. Garcia regarding his right upper lobe mass. Objective - Vital Signs Vital signs: Vital Signs Temp 97.5 F L 10/14/21 08:00 Pulse 90 10/14/21 08:00 Resp 20 10/14/21 08:00 BP 136/84 10/14/21 08:00 Pulse Ox 97 10/14/21 08:00 Intake & Output 10/13/21 10/14/21 10/14/21 18:59 06:59 18:59 Intake Total 300 Output Total 600 670 0 Balance -600 -370 0 Weight 65.3 kg Intake: Oral 300 Output: Urine 600 670 0 Other: Voiding Method Urinal Urinal Urinal # Voids 0 0 # Bowel Movements 1 - Exam Physical Exam: Revealed a 66-year-old white male in no distress, looks frail,but in no distress Head: Atraumatic, normocephalic. HEENT:[Neck is supple.] [No neck masses.] [No thyromegaly.] [No JVD.] Chest: [Clear throughout, no crackles, no rhonchi, no wheezes.] Cardiac Exam: [Normal S1 and S2, no S3 gallop, no murmur.] Abdomen: [Soft, nontender, no megaly, no rebound, no guarding, normal bowel sounds.] Extremities: [No clubbing, no edema, no cyanosis.] Neurological Exam: [No focal neurologic deficit.] Alert and oriented 3. Psychiatric: Normal mood, affect and normal mental status examination. Skin: No rashes - Labs CBC & Chem 7: 10/14/21 07:32 10/14/21 07:32 Labs: Abnormal Lab Results - Last 24 Hours (Table) 10/13/21 10/13/21 10/13/21 Range/Units 10:54 15:40 17:10 RBC (4.30-5.90) m/uL Hgb (13.0-17.5) gm/dL Hct (39.0-53.0) % MCV (80.0-100.0) fL MCH (25.0-35.0) pg MCHC (31.0-37.0) g/dL RDW (11.5-15.5) % Sodium 118 L* 118 L* 121 L (137-145) mmol/L Chloride (98-107) mmol/L Creatinine (0.66-1.25) mg/dL Glucose (74-99) mg/dL Calcium (8.4-10.2) mg/dL 10/14/21 10/14/21 Range/Units 07:32 07:32 RBC 3.48 L (4.30-5.90) m/uL Hgb 7.6 L (13.0-17.5) gm/dL Hct 26.1 L (39.0-53.0) % MCV 75.0 L (80.0-100.0) fL MCH 21.8 L (25.0-35.0) pg MCHC 29.0 L (31.0-37.0) g/dL RDW 19.1 H (11.5-15.5) % Sodium 123 L (137-145) mmol/L Chloride 95 L (98-107) mmol/L Creatinine 0.65 L (0.66-1.25) mg/dL Glucose 124 H (74-99) mg/dL Calcium 7.9 L (8.4-10.2) mg/dL Assessment and Plan Assessment: Impression: Hyponatremia could be secondary to hypovolemia or could be secondary to underlying SIADH from underlying bronchogenic carcinoma. Lung mass highly suspicious for bronchogenic carcinoma will eventually need outpatient follow-up, PET scan, possible repeat navigational bronchoscopy and/or CT-guided needle biopsy of the right upper lobe nodule, patient follows up with Dr. Garcia for his abnormal CT of the chest. Chronic anemia and history of chronic gastritis, history of colonic polyps. History of vocal cord paralysis Benign essential hypertension Tobacco dependence syndrome History of underlying COPD presently inactive History of alcoholism Chronic anorexia and weight loss. Recommendation: transfer patient out of the ICU Hyponatremia is improving. consider discharge planning in the next 48 hours Patient will eventually need outpatient follow-up for his right upper lobe mass after discharge. Time with Patient: Less than 30
[2021-10-14] MEDS: amLODIPine 5 MG TAB PO SCH (12:12)
--- NOTE | 2021-10-14 14:40 | P.PN ---
Subjective Progress Note Date: 10/14/21 66-year-old male came in with complaints of of increasing weakness found to have severe hyponatremia with a serum sodium being 113. Patient had similar complaints in the past, patient does drink alcohol on daily basis does drink beer. Patient also has a mass in the right upper lobe because of which there was a concern of SIADH, patient had hospital physician in the past with similar complaints. Patient was started on 3% saline because of her rapid increase in serum sodium patient is presently on D5 water. Patient was a sodium is 121. Patient also has low magnesium which is being replaced. Patient's serum osmolality is 267. 10/13/2021 Patient evaluated today in the ICU sitting in the chair. No acute events overnight. Continues on D5 gtt and sodium level most recently is 118. Magnesium 1.8 today and patient received 2 grams of IV magnesium. Blood pressure in the 90s systolic and continues off his blood pressure medications. He is on room air. Continue to monitor for acute alcohol withdrawal. He will continue on IV fluids and continue in ICU pending sodium level in the 120's and will be downgraded. He is being closely followed by pulmonary soaping department supervisor and nephrology team. 10/14/2021 Patient is evaluated in the ICU today, sodium level is now 123 and the D5 gtt has been discontinued. Magnesium 1.8. Hemodynamically stable. Plan is to transition patient to normal saline infusion and repeat sodium level in the morning. he is pending transfer out of the ICU today. PT/OT evaluation has been completed and patient will return home on discharge. Blood pressure has normalized, clonidine continues on hold, amlodipine resumed at 5 mg daily. Review of Systems Constitutional: Denied any fatigue denied any fever. Cardio vascular: denied any chest pain, palpitations Gastrointestinal: denied any nausea, vomiting, diarrhea Pulmonary: Denied any shortness of breath cough Neurologic denied any new focal deficits All inpatient medications were reviewed and appropriate changes in these medications as dictated in the interval history and assessment and plan. PHYSICAL EXAMINATION: GENERAL: The patient is alert and oriented x3, not in any acute distress. Well developed, well nourished. HEENT: Pupils are round and equally reacting to light. EOMI. No scleral icterus. No conjunctival pallor. Normocephalic, atraumatic. No pharyngeal erythema. No thyromegaly. CARDIOVASCULAR: S1 and S2 present. No murmurs, rubs, or gallops. PULMONARY: Chest is clear to auscultation, no wheezing or crackles. ABDOMEN: Soft, nontender, nondistended, normoactive bowel sounds. No palpable organomegaly. MUSCULOSKELETAL: No joint swelling or deformity. EXTREMITIES: No cyanosis, clubbing, or pedal edema. NEUROLOGICAL: Gross neurological examination did not reveal any focal deficits. SKIN: No rashes. Assessment and plan Assessment -Hyponatremia appears to be acute, secondary to hypovolemia and may also have a component of SIADH, patient has a spiculated mass in the right upper lung regalado. Sodium level today 123. -Lung mass as mentioned above -Chronic and deficiency anemia for which patient is on iron supplementation, no active signs of bleeding -Hypertension -COPD without any acute exacerbation -Alcohol abuse: Counseling was provided patient is being monitored for withdrawals patient is also on Ativan CIWA protocol -Transaminitis secondary to alcoholism DVT prophylaxis: Lovenox Plan Follow up with pulmonary outpatient for further evaluation of lung mass On normal saline and will repeat sodium level in the morning Continue to monitor for acute alcohol withdrawal Transfer to medical floor The impression and plan of care has been dictated by Amarilis James Nurse Practitioner as directed. Dr. Mjaor MD I have performed a history and physical examination and medical decision making of this patient, discussed the same with the dictator, and agree with the dictators assessment and plan as written, documented as a scribe. Based on total visit time, I have performed more than 50% of this visit. Objective - Vital Signs Vital signs: Vital Signs Temp 97.5 F L 10/14/21 08:00 Pulse 90 10/14/21 08:00 Resp 20 10/14/21 08:00 BP 136/84 10/14/21 08:00 Pulse Ox 97 10/14/21 08:00 Intake & Output 10/13/21 10/14/21 10/14/21 18:59 06:59 18:59 Intake Total 300 Output Total 600 670 0 Balance -600 -370 0 Weight 65.3 kg Intake: Oral 300 Output: Urine 600 670 0 Other: Voiding Method Urinal Urinal Urinal # Voids 0 0 # Bowel Movements 1 - Labs CBC & Chem 7: 10/14/21 07:32 10/14/21 07:32 Labs: Abnormal Lab Results - Last 24 Hours (Table) 10/13/21 10/13/21 10/13/21 Range/Units 10:54 15:40 17:10 RBC (4.30-5.90) m/uL Hgb (13.0-17.5) gm/dL Hct (39.0-53.0) % MCV (80.0-100.0) fL MCH (25.0-35.0) pg MCHC (31.0-37.0) g/dL RDW (11.5-15.5) % Sodium 118 L* 118 L* 121 L (137-145) mmol/L Chloride (98-107) mmol/L Creatinine (0.66-1.25) mg/dL Glucose (74-99) mg/dL Calcium (8.4-10.2) mg/dL 10/14/21 10/14/21 Range/Units 07:32 07:32 RBC 3.48 L (4.30-5.90) m/uL Hgb 7.6 L (13.0-17.5) gm/dL Hct 26.1 L (39.0-53.0) % MCV 75.0 L (80.0-100.0) fL MCH 21.8 L (25.0-35.0) pg MCHC 29.0 L (31.0-37.0) g/dL RDW 19.1 H (11.5-15.5) % Sodium 123 L (137-145) mmol/L Chloride 95 L (98-107) mmol/L Creatinine 0.65 L (0.66-1.25) mg/dL Glucose 124 H (74-99) mg/dL Calcium 7.9 L (8.4-10.2) mg/dL Assessment and Plan Time with Patient: Less than 30
--- NOTE | 2021-10-14 15:23 | P.PN ---
Subjective Progress Note Date: 10/14/21 Follow-up for hyponatremia. No acute symptoms. Currently on normal saline at 50 ML's an hour. Objective - Vital Signs Vital signs: Vital Signs Temp 97.7 F 10/14/21 14:00 Pulse 84 10/14/21 14:00 Resp 17 10/14/21 14:00 BP 124/85 10/14/21 14:00 Pulse Ox 100 10/14/21 14:00 Intake & Output 10/13/21 10/14/21 10/14/21 18:59 06:59 18:59 Intake Total 300 100 Output Total 600 670 200 Balance -600 -370 -100 Weight 65.3 kg Intake: IV 100 Sodium Chloride 0.9% 1, 100 000 ml @ 50 mls/hr IV . Q20H [facility] Rx#:[id number] Oral 300 Output: Urine 600 670 200 Other: Voiding Method Urinal Urinal Urinal # Voids 0 0 # Bowel Movements 1 - Exam No acute distress S1-S2 heard Lungs clear No edema - Labs CBC & Chem 7: 10/14/21 07:32 10/14/21 07:32 Labs: Abnormal Lab Results - Last 24 Hours (Table) 10/13/21 10/13/21 10/14/21 Range/Units 15:40 17:10 07:32 RBC (4.30-5.90) m/uL Hgb (13.0-17.5) gm/dL Hct (39.0-53.0) % MCV (80.0-100.0) fL MCH (25.0-35.0) pg MCHC (31.0-37.0) g/dL RDW (11.5-15.5) % Sodium 118 L* 121 L 123 L (137-145) mmol/L Chloride 95 L (98-107) mmol/L Creatinine 0.65 L (0.66-1.25) mg/dL Glucose 124 H (74-99) mg/dL Calcium 7.9 L (8.4-10.2) mg/dL 10/14/21 Range/Units 07:32 RBC 3.48 L (4.30-5.90) m/uL Hgb 7.6 L (13.0-17.5) gm/dL Hct 26.1 L (39.0-53.0) % MCV 75.0 L (80.0-100.0) fL MCH 21.8 L (25.0-35.0) pg MCHC 29.0 L (31.0-37.0) g/dL RDW 19.1 H (11.5-15.5) % Sodium (137-145) mmol/L Chloride (98-107) mmol/L Creatinine (0.66-1.25) mg/dL Glucose (74-99) mg/dL Calcium (8.4-10.2) mg/dL Assessment and Plan Assessment: #1 acute on chronic hypotonic hyponatremia. 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 #2 normal renal function #3 hypertension essential. Plan: #1 sodium slowly improving. Stop normal saline. #2 one dose of Samsca 15 mg. #3 check labs in the morning
[2021-10-14] MEDS ORDERED: TOLVAPTAN 15 MG 1/2 TABLET PO ONE (15:30)
[2021-10-14] MEDS: CALCIUM CARBONATE 500 MG CHEWABLE PO PRN (19:26)
[2021-10-15] MEDS: amLODIPine 5 MG TAB PO SCH (07:31)
[2021-10-15] MEDS: THIAMINE 100 MG TAB PO SCH ×2 (07:31→15:05)
[2021-10-15 09:43] LABS: African American GFR (CKD) 115.8 (60.0-200.0); Anion Gap 10.1 mmol/L (10.00-18.00); BUN/Creat Ratio 15.73 Ratio (12.00-20.00); Blood Urea Nitrogen 10.6 mg/dL (9.0-27.0); Calcium 8.6 mg/dL (8.7-10.3); Carbon Dioxide 18.7 mmol/L (20.0-27.5); Non-African American GFR(CKD) 99.9 (60.0-200.0); Potassium 4.3 mmol/L (3.5-5.5)
--- NOTE | 2021-10-15 13:40 | P.PN ---
Subjective Progress Note Date: 10/15/21 This is a 66-year-old white male with history of alcohol abuse, history of chronic hyponatremia, history of right upper lobe lung mass, previous navigational bronchoscopy on this patient was nondiagnostic. However the right upper lobe mass has been growing in size, and it is becoming highly suspicious for underlying bronchogenic carcinoma. Patient had previous navigational bronchoscopy on May 2020, and this was done by Dr. Garcia. Repeat CT of the chest in March of 2021, clearly showed an enlarging spiculated nodule in the right upper lobe anteriorly. I believe the patient has not been very compliant person with follow-ups, and now that he came in with mostly weakness for the last 2 weeks, patient was noted to be hyponatremic with sodium of 108, and his chest x-ray showed enlarging right upper lobe lung nodule/lung mass. CT of the chest confirmed the finding, however the patient remains hyponatremic, and he will eventually require tissue biopsy, this could be done either by repeat navigational bronchoscopy or possibly CT-guided needle biopsy by interventional radiology. This is yet to be decided on outpatient basis patient has no active pulmonary symptoms. CT of the chest on this admission clearly showed an enlarging right upper lobe mass however the remaining nodules noted previously are basically about the same. Previous PET scan on this patient showed abnormal uptake with a spiculated lesions within the chest, and pleural extension and his last PET scan was basically in February of 2020 no follow-up PET scan done since then. Reevaluated today on 10/13/21, patient remains in the ICU, comfortable, in no distress. Patient is on room air, O2 sats 97%. Sodium is 118 this morning, his initial sodium on presentation was 108. Patient received D5W, however his sodiu m went down to 114 from 121, patient is doing well, does not seem to be in any distress, sodium is being addressed by nephrology on the case. It is not clear to me whether this is a hypovolemic hyponatremia, although the patient is a gait set up for SIADH. reevaluated today on 10/14/21, patient remains in the ICU, patient is doing better today compared to the last couple of days, his sodium is improving is up to 123. Patient is not receiving any IV fluids, and he is in no distress, overall the patient is doing great, and his sodium seems to be correcting very slowly. Today I recommended we start the patient on 50 mL per hour of 0.9 normal saline, I also recommended that we transfer the patient out of the ICU. And he will eventually need to be discharged home on should have follow-up with Dr. Garcia regarding his right upper lobe mass. The patient is seen today 10/15/2021 in follow-up on the regular medical floor. He is currently sitting up in bed. Awake and alert in no acute distress. His main complaint is that of feeling tired and fatigued. He is maintaining O2 saturations in the 90s on room air. No IV fluids. His sodium is up to 130. Potassium 4.3. BUN 11. Creatinine 0.7. Objective - Vital Signs Vital signs: Vital Signs Temp 97.7 F 10/15/21 07:34 Pulse 85 10/15/21 07:34 Resp 17 10/15/21 08:00 BP 142/81 10/15/21 07:34 Pulse Ox 98 10/15/21 07:34 Intake & Output 10/14/21 10/15/21 10/15/21 18:59 06:59 18:59 Intake Total 100 Output Total 200 1500 Balance -100 -1500 Intake: IV 100 Sodium Chloride 0.9% 1, 100 000 ml @ 50 mls/hr IV . Q20H [facility] Rx#:[id number] Output: Urine 200 1500 Other: Voiding Method Urinal Urinal # Voids 0 - Exam GENERAL EXAM: Alert, pleasant 66-year-old male patient, appears older than stated age, on room air, comfortable in no apparent distress. HEAD: Normocephalic. EYES: Normal reaction of pupils, equal size. NOSE: Clear with pink turbinates. THROAT: No erythema or exudates. NECK: No masses, no JVD. CHEST: No chest wall deformity. LUNGS: Equal air entry with no crackles, wheeze, rhonchi or dullness. CVS: S1 and S2 normal with no audible murmur, regular rhythm. ABDOMEN: No hepatosplenomegaly, normal bowel sounds, no guarding or rigidity. SPINE: No scoliosis or deformity SKIN: No rashes CENTRAL NERVOUS SYSTEM: No focal deficits, tone is normal in all 4 extremities. EXTREMITIES: There is no peripheral edema. No clubbing, no cyanosis. Peripheral pulses are intact. - Labs CBC & Chem 7: 10/14/21 07:32 10/15/21 05:42 Labs: Abnormal Lab Results - Last 24 Hours (Table) 10/15/21 Range/Units 05:42 Sodium 130 L (135-145) mmol/L Carbon Dioxide 18.7 L (20.0-27.5) mmol/L Calcium 8.6 L (8.7-10.3) mg/dL Assessment and Plan Assessment: Hyponatremia could be secondary to hypovolemia or could be secondary to underlying SIADH from underlying bronchogenic carcinoma. Improved and current sodium 130 Lung mass highly suspicious for bronchogenic carcinoma will eventually need outpatient follow-up, PET scan, possible repeat navigational bronchoscopy and/or CT-guided needle biopsy of the right upper lobe nodule, patient follows up with Dr. Garcia for his abnormal CT of the chest. Chronic anemia and history of chronic gastritis, history of colonic polyps. History of vocal cord paralysis Benign essential hypertension Tobacco dependence syndrome History of underlying COPD presently inactive History of alcoholism Chronic anorexia and weight loss. Plan: The patient was seen and evaluated Stable from the critical care standpoint Generalized weakness continues Cleared for discharge once cleared by medicine Home with home care versus subacute rehabilitation Follow-up in our office in 1-2 weeks' I have personally seen and examined the patient, performed the documentation and the assessment and plan as written. Number of minutes spent on the visit: 10.
[2021-10-15] MEDS: SODIUM FERRIC GLUCONAT-SUCROSE 125 MG in SODIUM CHLORIDE 0.9% 100 ML IVPB SCH (13:50)
[2021-10-15] MEDS ORDERED: ALPRAZolam 0.25 MG TAB PO STA (14:05)
--- NOTE | 2021-10-15 14:08 | P.PN ---
Subjective Progress Note Date: 10/15/21 66-year-old male came in with complaints of of increasing weakness found to have severe hyponatremia with a serum sodium being 113. Patient had similar complaints in the past, patient does drink alcohol on daily basis does drink beer. Patient also has a mass in the right upper lobe because of which there was a concern of SIADH, patient had hospital physician in the past with similar complaints. Patient was started on 3% saline because of her rapid increase in serum sodium patient is presently on D5 water. Patient was a sodium is 121. Patient also has low magnesium which is being replaced. Patient's serum osmolality is 267. 10/13/2021 Patient evaluated today in the ICU sitting in the chair. No acute events overnight. Continues on D5 gtt and sodium level most recently is 118. Magnesium 1.8 today and patient received 2 grams of IV magnesium. Blood pressure in the 90s systolic and continues off his blood pressure medications. He is on room air. Continue to monitor for acute alcohol withdrawal. He will continue on IV fluids and continue in ICU pending sodium level in the 120's and will be downgraded. He is being closely followed by pulmonary stone rougher and nephrology team. 10/14/2021 Patient is evaluated in the ICU today, sodium level is now 123 and the D5 gtt has been discontinued. Magnesium 1.8. Hemodynamically stable. Plan is to transition patient to normal saline infusion and repeat sodium level in the morning. he is pending transfer out of the ICU today. PT/OT evaluation has been completed and patient will return home on discharge. Blood pressure has normalized, clonidine continues on hold, amlodipine resumed at 5 mg daily. 10/15/2021 Patient evaluated today on the medical floor. His sodium improved to 130 today. He continues off normal saline gtt, and received a dose of samsca and will receive a second dose today. Sodium level will be repeated in the morning. P atient states he feels slightly agitated today and tired. He would like medication to help with his anxiety/agitation today. He is continued on CIWA for etoh withdrawal. Blood pressure is also up to 142/81, he was resumed back on his amlodipine yesterday, will resume clonidine as well. hgb 7.6 today patient had iron studies done in May and patient states he is supposed to take oral iron daily but doesnt because it messes with his stomach, IV iron daily has been ordered and repeat hgb tomorrow as well. Review of Systems Constitutional: Denied any fatigue denied any fever. Cardio vascular: denied any chest pain, palpitations Gastrointestinal: denied any nausea, vomiting, diarrhea Pulmonary: Denied any shortness of breath cough Neurologic denied any new focal deficits All inpatient medications were reviewed and appropriate changes in these medications as dictated in the interval history and assessment and plan. PHYSICAL EXAMINATION: GENERAL: The patient is alert and oriented x3, not in any acute distress. Well developed, well nourished. HEENT: Pupils are round and equally reacting to light. EOMI. No scleral icterus. No conjunctival pallor. Normocephalic, atraumatic. No pharyngeal erythema. No thyromegaly. CARDIOVASCULAR: S1 and S2 present. No murmurs, rubs, or gallops. PULMONARY: Chest is clear to auscultation, no wheezing or crackles. ABDOMEN: Soft, nontender, nondistended, normoactive bowel sounds. No palpable organomegaly. MUSCULOSKELETAL: No joint swelling or deformity. EXTREMITIES: No cyanosis, clubbing, or pedal edema. NEUROLOGICAL: Gross neurological examination did not reveal any focal deficits. SKIN: No rashes. Assessment and plan Assessment -Hyponatremia appears to be acute, secondary to hypovolemia and may also have a component of SIADH, patient has a spiculated mass in the right upper lung regalado. Sodium level today 130 today. -Lung mass as mentioned above -Chronic iron deficiency anemia for which patient is on iron supplementation outpatient that he is noncompliant with. -Hypertension -COPD without any acute exacerbation -Alcohol abuse: Counseling was provided patient is being monitored for withdrawals patient is also on Ativan CIWA protocol -Transaminitis secondary to alcoholism DVT prophylaxis: Lovenox Plan Follow up with pulmonary outpatient for further evaluation of lung mass IV iron infusion daily Continue to monitor for acute alcohol withdrawal Xanax x 1 dose for acute agitation Repeat labs in the morning Possible discharge tomorrow. The impression and plan of care has been dictated by Amarilis James, Nurse Practitioner as directed. Dr. Major MD I have performed a history and physical examination and medical decision making of this patient, discussed the same with the dictator, and agree with the dictators assessment and plan as written, documented as a scribe. Based on total visit time, I have performed more than 50% of this visit. Objective - Vital Signs Vital signs: Vital Signs Temp 97.7 F 10/15/21 07:34 Pulse 85 10/15/21 07:34 Resp 17 10/15/21 08:00 BP 142/81 10/15/21 07:34 Pulse Ox 98 10/15/21 07:34 Intake & Output 10/14/21 10/15/21 10/15/21 18:59 06:59 18:59 Intake Total 100 Output Total 200 1500 Balance -100 -1500 Intake: IV 100 Sodium Chloride 0.9% 1, 100 000 ml @ 50 mls/hr IV . Q20H [facility] Rx#:[id number] Output: Urine 200 1500 Other: Voiding Method Urinal Urinal # Voids 0 - Labs CBC & Chem 7: 10/14/21 07:32 10/15/21 05:42 Assessment and Plan Time with Patient: Less than 30
--- NOTE | 2021-10-15 14:25 | P.PN ---
Subjective Progress Note Date: 10/15/21 Follow-up for hyponatremia. No acute symptoms. Objective - Vital Signs Vital signs: Vital Signs Temp 97.7 F 10/15/21 07:34 Pulse 85 10/15/21 07:34 Resp 17 10/15/21 08:00 BP 142/81 10/15/21 07:34 Pulse Ox 98 10/15/21 07:34 Intake & Output 10/14/21 10/15/21 10/15/21 18:59 06:59 18:59 Intake Total 100 Output Total 200 1500 Balance -100 -1500 Intake: IV 100 Sodium Chloride 0.9% 1, 100 000 ml @ 50 mls/hr IV . Q20H [facility] Rx#:[id number] Output: Urine 200 1500 Other: Voiding Method Urinal Urinal # Voids 0 - Exam No acute distress S1-S2 heard Lungs clear No edema - Labs CBC & Chem 7: 10/14/21 07:32 10/15/21 05:42 Labs: Abnormal Lab Results - Last 24 Hours (Table) 10/15/21 Range/Units 05:42 Sodium 130 L (135-145) mmol/L Carbon Dioxide 18.7 L (20.0-27.5) mmol/L Calcium 8.6 L (8.7-10.3) mg/dL Assessment and Plan Assessment: #1 acute on chronic hypotonic hyponatremia. 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 #2 normal renal function #3 hypertension essential. Plan: #1 sodium improving status post Samsca 15 mg yesterday #2 one dose of Samsca 15 mg today. #3 check labs in the morning
[2021-10-15] MEDS ORDERED: TOLVAPTAN 15 MG 1/2 TABLET PO ONE (16:00)
[2021-10-15] MEDS: cloNIDine HCL 0.1 MG TAB PO SCH (20:14)
[2021-10-15] MEDS: CALCIUM CARBONATE 500 MG CHEWABLE PO PRN (20:19)
[2021-10-16] MEDS: THIAMINE 100 MG TAB PO SCH ×2 (07:46→17:51)
[2021-10-16] MEDS: amLODIPine 5 MG TAB PO SCH (07:46)
[2021-10-16] MEDS: cloNIDine HCL 0.1 MG TAB PO SCH ×2 (07:46→21:33)
[2021-10-16 09:05] LABS: Anion Gap 10.7 mmol/L (10.00-18.00); BUN/Creat Ratio 16.71 Ratio (12.00-20.00); Blood Urea Nitrogen 11.7 mg/dL (9.0-27.0); Calcium 8.6 mg/dL (8.7-10.3); Carbon Dioxide 17.3 mmol/L (20.0-27.5); Magnesium 1.7 mg/dL (1.5-2.4); Non-African American GFR(CKD) 98.3 (60.0-200.0); Potassium 4.4 mmol/L (3.5-5.5)
[2021-10-16] MEDS: SODIUM FERRIC GLUCONAT-SUCROSE 125 MG in SODIUM CHLORIDE 0.9% 100 ML IVPB SCH (09:19)
[2021-10-16] MEDS ORDERED: Magnesium Replacement Protocol 1 EACH MISC MISCELLANE PRN (09:39)
--- NOTE | 2021-10-16 09:42 | P.PN ---
Subjective Patient is seen in follow-up for hyponatremia. Sodium level stable at 130 today. Creatinine 0.7. Denies chest pain or shortness of breath. No vomiting or diarrhea. Oral intake fair. Vital signs are stable. General: Awake and alert. HEENT: Head exam is unremarkable. LUNGS: Breath sounds decreased. HEART: Rate and Rhythm are regular. ABDOMEN: Soft, no distention. EXTREMITITES: No edema. Objective - Vital Signs Vital signs: Vital Signs Temp 98.1 F 10/16/21 07:00 Pulse 80 10/16/21 07:46 Resp 18 10/16/21 07:46 BP 124/77 10/16/21 07:00 Pulse Ox 97 10/16/21 08:43 FiO2 Intake & Output 10/15/21 10/16/21 10/16/21 18:59 06:59 18:59 Intake Total 600 Output Total 800 500 Balance -800 100 Intake: Oral 600 Output: Urine 800 500 Other: Voiding Method Urinal Urinal # Voids 4 # Bowel Movements 1 - Labs CBC & Chem 7: 10/14/21 07:32 10/16/21 05:19 Labs: Abnormal Lab Results - Last 24 Hours (Table) 10/15/21 10/16/21 Range/Units 05:42 05:19 Sodium 130 L 130 L (135-145) mmol/L Carbon Dioxide 18.7 L 17.3 L (20.0-27.5) mmol/L Calcium 8.6 L 8.6 L (8.7-10.3) mg/dL Assessment and Plan Plan: Assessment: 1. Hyponatremia. Initially hypovolemic and improved with IV hydration. Also component of SIADH from lung cancer. Sodium level stable at 1:30 today. Urine sodium less than 20 and urine osmolality 267 on admission. Has received Samsca this admission. 2. Lung mass with concern for bronchogenic carcinoma. Pulmonology following. 3. Benign hypertension. Stable. 4. Anemia. Receiving IV iron. 5. Metabolic acidosis with ketones in urine. Plan: Add 1200 mL fluid restriction. Encouraged oral intake. Add oral bicarb. Add sodium chloride tab. Repeat labs in the morning. Check TSH.
[2021-10-16] MEDS: SODIUM CHLORIDE TAB 1 GM TAB PO SCH (10:58)
[2021-10-16] MEDS: SODIUM BICARBONATE TAB 650 MG TAB PO SCH ×2 (10:58→20:25)
[2021-10-16] MEDS: MAGNESIUM SULFATE-D5W PMX 1 GM in DEXTROSE/WATER 1 100ML.BAG IVPB SCH ×2 (10:59→12:21)
[2021-10-16 11:48] LABS: Basophils % (A) 1.5 %; Eosinophils # (A) 0.14 X 10*3/uL (0.04-0.35); Eosinophils % (A) 2.2 %; HCT 22.2 % (39.6-50.0); HGB 6.7 g/dL (13.0-17.0); Immature Grans, Automated 0.9 %; Lymphocytes # (A) 2.04 X 10*3/uL (0.90-5.00); Lymphocytes % (A) 31.4 %; MCH 21.6 pg (27.0-32.0); MCHC 30.2 g/dL (32.0-37.0); MCV 71.6 fL (80.0-97.0); Monocytes # (A) 0.84 X 10*3/uL (0.20-1.00); Monocytes % (A) 12.9 %; NRBC Per 100 WBC 0 /100 WBCS (0.0-0.0); Neutrophils # (A) 3.31 X 10*3/uL (1.80-7.70); Neutrophils % (A) 51.1 %; Platelet Count 282 X 10*3/uL (140-440); RDW 21.1 % (11.5-14.5); WBC 6.49 X 10*3/uL (4.50-10.00)
--- NOTE | 2021-10-16 12:19 | P.PN ---
Subjective Progress Note Date: 10/16/21 This is a 66-year-old white male with history of alcohol abuse, history of chronic hyponatremia, history of right upper lobe lung mass, previous navigational bronchoscopy on this patient was nondiagnostic. However the right upper lobe mass has been growing in size, and it is becoming highly suspicious f or underlying bronchogenic carcinoma. Patient had previous navigational bronchoscopy on May 2020, and this was done by Dr. Garcia. Repeat CT of the chest in March of 2021, clearly showed an enlarging spiculated nodule in the right upper lobe anteriorly. I believe the patient has not been very compliant person with follow-ups, and now that he came in with mostly weakness for the last 2 weeks, patient was noted to be hyponatremic with sodium of 108, and his chest x-ray showed enlarging right upper lobe lung nodule/lung mass. CT of the chest confirmed the finding, however the patient remains hyponatremic, and he will eventually require tissue biopsy, this could be done either by repeat navigational bronchoscopy or possibly CT-guided needle biopsy by interventional radiology. This is yet to be decided on outpatient basis patient has no active pulmonary symptoms. CT of the chest on this admission clearly showed an enlarging right upper lobe mass however the remaining nodules noted previously are basically about the same. Previous PET scan on this patient showed abnormal uptake with a spiculated lesions within the chest, and pleural extension and his last PET scan was basically in February of 2020 no follow-up PET scan done since then. Reevaluated today on 10/13/21, patient remains in the ICU, comfortable, in no distress. Patient is on room air, O2 sats 97%. Sodium is 118 this morning, his initial sodium on presentation was 108. Patient received D5W, however his sodi um went down to 114 from 121, patient is doing well, does not seem to be in any distress, sodium is being addressed by nephrology on the case. It is not clear to me whether this is a hypovolemic hyponatremia, although the patient is a gait set up for SIADH. reevaluated today on 10/14/21, patient remains in the ICU, patient is doing better today compared to the last couple of days, his sodium is improving is up to 123. Patient is not receiving any IV fluids, and he is in no distress, overall the patient is doing great, and his sodium seems to be correcting very slowly. Today I recommended we start the patient on 50 mL per hour of 0.9 normal saline, I also recommended that we transfer the patient out of the ICU. And he will eventually need to be discharged home on should have follow-up with Dr. Garcia regarding his right upper lobe mass. The patient is seen today 10/15/2021 in follow-up on the regular medical floor. He is currently sitting up in bed. Awake and alert in no acute distress. His main complaint is that of feeling tired and fatigued. He is maintaining O2 saturations in the 90s on room air. No IV fluids. His sodium is up to 130. Potassium 4.3. BUN 11. Creatinine 0.7. 10/16/2021, the patient is on room air oxygen. His sodium level is improved and it's up to 1:30. The patient has a right upper lobe mass that needs to be followed up on outpatient basis. At the same time, his hemoglobin today still to 6.7. No signs of any acute GI bleeding at this point in time. The patient had a baseline hemoglobin of 8 at the time of admission that dropped down to 7.6 from yesterday and currently is down to 6.7. Home I status is overall stable. Nephrology is on the case regarding his hyponatremia. Objective - Vital Signs Vital signs: Vital Signs Temp 98.1 F 10/16/21 07:00 Pulse 80 10/16/21 07:46 Resp 18 10/16/21 07:46 BP 124/77 10/16/21 07:00 Pulse Ox 97 10/16/21 08:43 FiO2 Intake & Output 10/15/21 10/16/21 10/16/21 18:59 06:59 18:59 Intake Total 600 Output Total 800 500 Balance -800 100 Intake: Oral 600 Output: Urine 800 500 Other: Voiding Method Urinal Urinal # Voids 4 # Bowel Movements 1 - Exam GENERAL EXAM: Alert, pleasant 66-year-old male patient, appears older than stated age, on room air, comfortable in no apparent distress. HEAD: Normocephalic. EYES: Normal reaction of pupils, equal size. NOSE: Clear with pink turbinates. THROAT: No erythema or exudates. NECK: No masses, no JVD. CHEST: No chest wall deformity. LUNGS: Equal air entry with no crackles, wheeze, rhonchi or dullness. CVS: S1 and S2 normal with no audible murmur, regular rhythm. ABDOMEN: No hepatosplenomegaly, normal bowel sounds, no guarding or rigidity. SPINE: No scoliosis or deformity SKIN: No rashes CENTRAL NERVOUS SYSTEM: No focal deficits, tone is normal in all 4 extremities. EXTREMITIES: There is no peripheral edema. No clubbing, no cyanosis. Peripheral pulses are intact. - Labs CBC & Chem 7: 10/16/21 05:19 10/16/21 05:19 Labs: Abnormal Lab Results - Last 24 Hours (Table) 10/16/21 10/16/21 Range/Units 05:19 05:19 RBC 3.10 L (4.40-5.60) X 10*6/uL Hgb 6.7 L* (13.0-17.0) g/dL Hct 22.2 L (39.6-50.0) % MCV 71.6 L (80.0-97.0) fL MCH 21.6 L (27.0-32.0) pg MCHC 30.2 L (32.0-37.0) g/dL RDW 21.1 H (11.5-14.5) % Immature Gran # 0.06 H (0.00-0.04) X 10*3/uL Sodium 130 L (135-145) mmol/L Carbon Dioxide 17.3 L (20.0-27.5) mmol/L Calcium 8.6 L (8.7-10.3) mg/dL Assessment and Plan Plan: Hyponatremia could be secondary to hypovolemia or could be secondary to underlying SIADH from underlying bronchogenic carcinoma. Improved and current sodium 130 Lung mass highly suspicious for bronchogenic carcinoma will eventually need outpatient follow-up, PET scan, possible repeat navigational bronchoscopy and/or CT-guided needle biopsy of the right upper lobe nodule, patient follows up with Dr. Garcia for his abnormal CT of the chest. The patient has enlarging right upper lobe pulmonary masses felt to be reflecting malignancy and this is noted on the most recent CAT scan of the chest done on 10/12/2021. Highly suspicious for primary bronchogenic cancer. Recommend repeating bronchoscopy on outpatient basis. Chronic anemia and history of chronic gastritis, history of colonic polyps. History of vocal cord paralysis Benign essential hypertension Tobacco dependence syndrome History of underlying COPD presently inactive History of alcoholism Chronic anorexia and weight loss. acute on chronic anemia, no bleed Plan: The patient was seen and evaluated Stable from the critical care standpoint Sodium level is normalized. There is obviously concern of an SIADH due to malignancy and the patient's sodium level is to be monitored and fluid restriction will be implemented. The patient will be given IV iron and he is of packed RBC and hemoglobin will be monitored. We'll continue to follow.
--- NOTE | 2021-10-16 15:59 | P.PN ---
Subjective Progress Note Date: 10/16/21 66-year-old male came in with complaints of of increasing weakness found to have severe hyponatremia with a serum sodium being 113. Patient had similar complaints in the past, patient does drink alcohol on daily basis does drink beer. Patient also has a mass in the right upper lobe because of which there was a concern of SIADH, patient had hospital physician in the past with similar complaints. Patient was started on 3% saline because of her rapid increase in serum sodium patient is presently on D5 water. Patient was a sodium is 121. Patient also has low magnesium which is being replaced. Patient's serum osmolality is 267. 10/13/2021 Patient evaluated today in the ICU sitting in the chair. No acute events overnight. Continues on D5 gtt and sodium level most recently is 118. Magnesium 1.8 today and patient received 2 grams of IV magnesium. Blood pressure in the 90s systolic and continues off his blood pressure medications. He is on room air. Continue to monitor for acute alcohol withdrawal. He will continue on IV fluids and continue in ICU pending sodium level in the 120's and will be downgraded. He is being closely followed by pulmonary coke loader and nephrology team. 10/14/2021 Patient is evaluated in the ICU today, sodium level is now 123 and the D5 gtt has been discontinued. Magnesium 1.8. Hemodynamically stable. Plan is to transition patient to normal saline infusion and repeat sodium level in the morning. he is pending transfer out of the ICU today. PT/OT evaluation has been completed and patient will return home on discharge. Blood pressure has normalized, clonidine continues on hold, amlodipine resumed at 5 mg daily. 10/15/2021 Patient evaluated today on the medical floor. His sodium improved to 130 today. He continues off normal saline gtt, and received a dose of samsca and will receive a second dose today. Sodium level will be repeated in the morning. P atient states he feels slightly agitated today and tired. He would like medication to help with his anxiety/agitation today. He is continued on CIWA for etoh withdrawal. Blood pressure is also up to 142/81, he was resumed back on his amlodipine yesterday, will resume clonidine as well. hgb 7.6 today patient had iron studies done in May and patient states he is supposed to take oral iron daily but doesnt because it messes with his stomach, IV iron daily has been ordered and repeat hgb tomorrow as well. 10/16/2021 Patient is evaluated today by nephrology who is recommending 1200 cc fluid r estriction and follow up labs tomorrow. Sodium today is 130. Blood pressure 120s systolic now. Hgb came back today at 6.7 and patient will receive 1 unit of PRBC,s he was also receiving IV iron transfusions. He will undergo repeat CBC and BMP tomorrow. No signs of active bleeding, patient denies blood in the stool, black, maroon, or bright red. Otherwise no acute events and patient has been working with PT and OT. Review of Systems Constitutional: Denied any fatigue denied any fever. Cardio vascular: denied any chest pain, palpitations Gastrointestinal: denied any nausea, vomiting, diarrhea Pulmonary: Denied any shortness of breath cough Neurologic denied any new focal deficits All inpatient medications were reviewed and appropriate changes in these medications as dictated in the interval history and assessment and plan. PHYSICAL EXAMINATION: GENERAL: The patient is alert and oriented x3, not in any acute distress. Well developed, well nourished. HEENT: Pupils are round and equally reacting to light. EOMI. No scleral icterus. No conjunctival pallor. Normocephalic, atraumatic. No pharyngeal erythema. No thyromegaly. CARDIOVASCULAR: S1 and S2 present. No murmurs, rubs, or gallops. PULMONARY: Chest is clear to auscultation, no wheezing or crackles. ABDOMEN: Soft, nontender, nondistended, normoactive bowel sounds. No palpable organomegaly. MUSCULOSKELETAL: No joint swelling or deformity. EXTREMITIES: No cyanosis, clubbing, or pedal edema. NEUROLOGICAL: Gross neurological examination did not reveal any focal deficits. SKIN: No rashes. Assessment and plan Assessment -Hyponatremia appears to be acute, secondary to hypovolemia and may also have a component of SIADH, patient has a spiculated mass in the right upper lung regalado. Sodium level today 130 today. -Lung mass as mentioned above -Chronic iron deficiency anemia for which patient is on iron supplementation outpatient that he is noncompliant with. hgb today 6.7, and patient will receive 1 unit of pack red blood cells. no signs for acute GI Bleed. -Hypertension -COPD without any acute exacerbation -Alcohol abuse: Counseling was provided patient is being monitored for wit hdrawals patient is also on Ativan CIWA protocol -Transaminitis secondary to alcoholism DVT prophylaxis: Lovenox Plan Follow up with pulmonary outpatient for further evaluation of lung mass IV iron x 3 days total 1 unit of PRBC's given today Continue to monitor for acute alcohol withdrawal Patient has been started on oral bicarbonate, and sodium chloride tablets Repeat labs in the morning The impression and plan of care has been dictated by Amarilis James, Nurse Practitioner as directed. Dr. Major MD I have performed a history and physical examination and medical decision making of this patient, discussed the same with the dictator, and agree with the dictators assessment and plan as written, documented as a scribe. Based on total visit time, I have performed more than 50% of this visit. Objective - Vital Signs Vital signs: Vital Signs Temp 98.1 F 10/16/21 07:00 Pulse 80 10/16/21 07:46 Resp 18 10/16/21 07:46 BP 124/77 10/16/21 07:00 Pulse Ox 97 10/16/21 08:43 FiO2 Intake & Output 10/15/21 10/16/21 10/16/21 18:59 06:59 18:59 Intake Total 600 Output Total 800 500 Balance -800 100 Intake: Oral 600 Output: Urine 800 500 Other: Voiding Method Urinal Urinal # Voids 4 # Bowel Movements 1 - Labs CBC & Chem 7: 10/16/21 05:19 10/16/21 05:19 Labs: Abnormal Lab Results - Last 24 Hours (Table) 10/15/21 10/16/21 Range/Units 05:42 05:19 Sodium 130 L 130 L (135-145) mmol/L Carbon Dioxide 18.7 L 17.3 L (20.0-27.5) mmol/L Calcium 8.6 L 8.6 L (8.7-10.3) mg/dL Assessment and Plan Time with Patient: Less than 30
[2021-10-16] MEDS: CALCIUM CARBONATE 500 MG CHEWABLE PO PRN (20:27)
[2021-10-17] MEDS: SODIUM CHLORIDE TAB 1 GM TAB PO SCH (08:07)
[2021-10-17] MEDS: SODIUM BICARBONATE TAB 650 MG TAB PO SCH (08:07)
[2021-10-17] MEDS: cloNIDine HCL 0.1 MG TAB PO SCH (08:07)
[2021-10-17] MEDS: amLODIPine 5 MG TAB PO SCH (08:07)
[2021-10-17] MEDS: THIAMINE 100 MG TAB PO SCH (08:07)
[2021-10-17] MEDS: SODIUM FERRIC GLUCONAT-SUCROSE 125 MG in SODIUM CHLORIDE 0.9% 100 ML IVPB SCH (08:44)
[2021-10-17 09:24] LABS: Basophils # (A) 0.15 X 10*3/uL (0.00-0.10); Eosinophils # (A) 0.12 X 10*3/uL (0.04-0.35); Eosinophils % (A) 1.6 %; HCT 25.6 % (39.6-50.0); HGB 7.9 g/dL (13.0-17.0); Immature Grans, Automated 0.9 %; Lymphocytes # (A) 1.97 X 10*3/uL (0.90-5.00); Lymphocytes % (A) 25.8 %; MCH 22.3 pg (27.0-32.0); MCHC 30.9 g/dL (32.0-37.0); MCV 72.1 fL (80.0-97.0); Mean Platelet Volume 9.5 fL (9.5-12.2); Monocytes # (A) 0.92 X 10*3/uL (0.20-1.00); NRBC Per 100 WBC 0 /100 WBCS (0.0-0.0); Neutrophils # (A) 4.42 X 10*3/uL (1.80-7.70); Neutrophils % (A) 57.7 %; Platelet Count 267 X 10*3/uL (140-440); RBC 3.55 X 10*6/uL (4.40-5.60); RDW 20.4 % (11.5-14.5); WBC 7.65 X 10*3/uL (4.50-10.00)
[2021-10-17 09:45] LABS: African American GFR (CKD) 112.9 (60.0-200.0); BUN/Creat Ratio 17.32 Ratio (12.00-20.00); Blood Urea Nitrogen 12.4 mg/dL (9.0-27.0); Calcium 8.5 mg/dL (8.7-10.3); Carbon Dioxide 17.2 mmol/L (20.0-27.5); Chloride 103 mmol/L (96-109); Glucose 86 mg/dL (70-110); Non-African American GFR(CKD) 97.4 (60.0-200.0); Potassium 4.5 mmol/L (3.5-5.5); Sodium 131 mmol/L (135-145)
[2021-10-17 12:00] VITALS: BMI 21.9
--- NOTE | 2021-10-17 12:16 | P.PN ---
Subjective Patient is seen in follow-up for hyponatremia. Sodium level 131 today. Creatinine 0.7. Denies chest pain or shortness of breath. No vomiting or diarrhea. Oral intake fair. Good urine output. Vital signs are stable. General: Awake and alert. HEENT: Head exam is unremarkable. LUNGS: Breath sounds decreased. HEART: Rate and Rhythm are regular. ABDOMEN: Soft, no distention. EXTREMITITES: No edema. Objective - Vital Signs Vital signs: Vital Signs Temp 98.4 F 10/17/21 07:24 Pulse 65 10/17/21 07:24 Resp 19 10/17/21 07:24 BP 122/78 10/17/21 07:24 Pulse Ox 100 10/17/21 07:24 FiO2 Intake & Output 10/16/21 10/17/21 10/17/21 18:59 06:59 18:59 Intake Total 1414 112 Balance 1414 112 Weight 65.3 kg Intake: Oral 1104 112 Blood Product 310 Rc As-1 Unit 310 [id number] Other: Voiding Method Urinal Diaper Diaper Incontinent Incontinent # Voids 3 1 # Bowel Movements 1 - Labs CBC & Chem 7: 10/17/21 05:08 10/17/21 05:08 Labs: Abnormal Lab Results - Last 24 Hours (Table) 10/16/21 10/17/21 10/17/21 Range/Units 13:05 05:08 05:08 RBC 3.55 L (4.40-5.60) X 10*6/uL Hgb 7.9 L (13.0-17.0) g/dL Hct 25.6 L (39.6-50.0) % MCV 72.1 L (80.0-97.0) fL MCH 22.3 L (27.0-32.0) pg MCHC 30.9 L (32.0-37.0) g/dL RDW 20.4 H (11.5-14.5) % Immature Gran # 0.07 H (0.00-0.04) X 10*3/uL Basophils # 0.15 H (0.00-0.10) X 10*3/uL Sodium 131 L (135-145) mmol/L Carbon Dioxide 17.2 L (20.0-27.5) mmol/L Calcium 8.5 L (8.7-10.3) mg/dL Crossmatch See Detail Assessment and Plan Plan: Assessment: 1. Hyponatremia. Initially hypovolemic and improved with IV hydration. Also component of SIADH from lung cancer. Sodium level 131 today. Urine sodium less than 20 and urine osmolality 267 on admission. TSH normal. Has received Samsca this admission. 2. Lung mass with concern for bronchogenic carcinoma. Pulmonology following. 3. Benign hypertension. Stable. 4. Anemia. Receiving IV iron. Also received blood transfusion this admission. No active bleeding. 5. Metabolic acidosis with ketones in urine. On oral bicarbonate. Plan: 1200 mL fluid restriction. Encouraged oral intake. Maintain sodium chloride tab. Repeat labs in the morning.
--- NOTE | 2021-10-17 13:40 | P.PN ---
Subjective Progress Note Date: 10/17/21 Principal diagnosis: Hyponatremia This is a 66-year-old white male with history of alcohol abuse, history of chronic hyponatremia, history of right upper lobe lung mass, previous n avigational bronchoscopy on this patient was nondiagnostic. However the right upper lobe mass has been growing in size, and it is becoming highly suspicious for underlying bronchogenic carcinoma. Patient had previous navigational bronchoscopy on May 2020, and this was done by Dr. Garcia. Repeat CT of the chest in March of 2021, clearly showed an enlarging spiculated nodule in the right upper lobe anteriorly. I believe the patient has not been very compliant person with follow-ups, and now that he came in with mostly weakness for the last 2 weeks, patient was noted to be hyponatremic with sodium of 108, and his chest x-ray showed enlarging right upper lobe lung nodule/lung mass. CT of the chest confirmed the finding, however the patient remains hyponatremic, and he will eventually require tissue biopsy, this could be done either by repeat navigational bronchoscopy or possibly CT-guided needle biopsy by interventional radiology. This is yet to be decided on outpatient basis patient has no active pulmonary symptoms. CT of the chest on this admission clearly showed an enlarg ing right upper lobe mass however the remaining nodules noted previously are basically about the same. Previous PET scan on this patient showed abnormal uptake with a spiculated lesions within the chest, and pleural extension and his last PET scan was basically in February of 2020 no follow-up PET scan done since then. Reevaluated today on 10/13/21, patient remains in the ICU, comfortable, in no d istress. Patient is on room air, O2 sats 97%. Sodium is 118 this morning, his initial sodium on presentation was 108. Patient received D5W, however his sodium went down to 114 from 121, patient is doing well, does not seem to be in any distress, sodium is being addressed by nephrology on the case. It is not clear to me whether this is a hypovolemic hyponatremia, although the patient is a gait set up for SIADH. reevaluated today on 10/14/21, patient remains in the ICU, patient is doing better today compared to the last couple of days, his sodium is improving is up to 123. Patient is not receiving any IV fluids, and he is in no distress, overall the patient is doing great, and his sodium seems to be correcting very slowly. Today I recommended we start the patient on 50 mL per hour of 0.9 normal saline, I also recommended that we transfer the patient out of the ICU. And he will eventually need to be discharged home on should have follow-up with Dr. Garcia regarding his right upper lobe mass. The patient is seen today 10/15/2021 in follow-up on the regular medical floor. He is currently sitting up in bed. Awake and alert in no acute distress. His main complaint is that of feeling tired and fatigued. He is maintaining O2 saturations in the 90s on room air. No IV fluids. His sodium is up to 130. Potassium 4.3. BUN 11. Creatinine 0.7. 10/16/2021, the patient is on room air oxygen. His sodium level is improved and it's up to 1:30. The patient has a right upper lobe mass that needs to be followed up on outpatient basis. At the same time, his hemoglobin today still to 6.7. No signs of any acute GI bleeding at this point in time. The patient had a baseline hemoglobin of 8 at the time of admission that dropped down to 7.6 from yesterday and currently is down to 6.7. Home I status is overall stable. Nephrology is on the case regarding his hyponatremia. On 10/17/2021 patient seen in follow-up on medical surgical floor, he is awake and alert, in no acute distress, breathing comfortably, sitting up in the recliner, getting ready teeth lunch. He is on room air satting 100%, afebrile. No nausea vomiting or diarrhea, his IV fluids have been hep-locked. Vital signs have been stable. Today's labs have been reviewed hemoglobin is 7.9, patient was transfused with 1 unit of blood for hemoglobin of 6.7 yesterday, white blood cell count of 7.6, platelet count 267, sodium is up to 131, potassium is 4.5, B1 is 12.4, creatinine 0.7. TSH is within normal limits at 1.4. Patient has no specific complaints. No Confusion, no seizures, no lethargy. Patient remains on 1200 mL fluid restriction Objective - Vital Signs Vital signs: Vital Signs Temp 98.4 F 10/17/21 07:24 Pulse 65 10/17/21 07:24 Resp 19 10/17/21 07:24 BP 122/78 10/17/21 07:24 Pulse Ox 100 10/17/21 07:24 FiO2 Intake & Output 10/16/21 10/17/21 10/17/21 18:59 06:59 18:59 Intake Total 1414 112 Balance 1414 112 Weight 65.3 kg Intake: Oral 1104 112 Blood Product 310 Rc As-1 Unit 310 [id number] Other: Voiding Method Urinal Diaper Diaper Incontinent Incontinent # Voids 3 1 # Bowel Movements 1 - Exam GENERAL EXAM: Alert, very pleasant, 66-year-old white male, on room air with pulse ox of 95-100% comfortable in no apparent distress. HEAD: Normocephalic/atraumatic. EYES: Normal reaction of pupils, equal size. Conjunctiva pink, sclera white. NOSE: Clear with pink turbinates. THROAT: No erythema or exudates. NECK: No masses, no JVD, no thyroid enlargement, no adenopathy. CHEST: No chest wall deformity. Symmetrical expansion. LUNGS: Equal air entry with no crackles, wheeze, rhonchi or dullness. CVS: Regular rate and rhythm, normal S1 and S2, no gallops, no murmurs, no rubs ABDOMEN: Soft, nontender. No hepatosplenomegaly, normal bowel sounds, no guarding or rigidity. EXTREMITIES: No clubbing, no edema, no cyanosis, 2+ pulses and upper and lower extremities. MUSCULOSKELETAL: Muscle strength and tone normal. SPINE: No scoliosis or deformity SKIN: No rashes CENTRAL NERVOUS SYSTEM: Alert and oriented -3. No focal deficits, tone is normal in all 4 extremities. PSYCHIATRIC: Alert and oriented -3. Appropriate affect. Intact judgment and insight. - Labs CBC & Chem 7: 10/17/21 05:08 10/17/21 05:08 Labs: Abnormal Lab Results - Last 24 Hours (Table) 10/16/21 10/17/21 10/17/21 Range/Units 13:05 05:08 05:08 RBC 3.55 L (4.40-5.60) X 10*6/uL Hgb 7.9 L (13.0-17.0) g/dL Hct 25.6 L (39.6-50.0) % MCV 72.1 L (80.0-97.0) fL MCH 22.3 L (27.0-32.0) pg MCHC 30.9 L (32.0-37.0) g/dL RDW 20.4 H (11.5-14.5) % Immature Gran # 0.07 H (0.00-0.04) X 10*3/uL Basophils # 0.15 H (0.00-0.10) X 10*3/uL Sodium 131 L (135-145) mmol/L Carbon Dioxide 17.2 L (20.0-27.5) mmol/L Calcium 8.5 L (8.7-10.3) mg/dL Crossmatch See Detail Assessment and Plan Plan: Hyponatremia could be secondary to hypovolemia or could be secondary to underlying SIADH from underlying bronchogenic carcinoma. Improved and current sodium 131 Lung mass highly suspicious for bronchogenic carcinoma will eventually need outpatient follow-up, PET scan, possible repeat navigational bronchoscopy and/or CT-guided needle biopsy of the right upper lobe nodule, patient follows up with Dr. Garcia for his abnormal CT of the chest. The patient has enlarging right upper lobe pulmonary masses felt to be reflecting malignancy and this is noted on the most recent CAT scan of the chest done on 10/12/2021. Highly suspicious for primary bronchogenic cancer. Recommend repeating bronchoscopy on outpatient basis. Chronic anemia and history of chronic gastritis, history of colonic polyps. History of vocal cord paralysis Benign essential hypertension Tobacco dependence syndrome History of underlying COPD presently inactive History of alcoholism Chronic anorexia and weight loss. Acute on chronic anemia, no bleed Plan: Stable from pulmonary perspective Breathing comfortably No shortness of breath, no cough, no chest discomfort Today sodium is up to 131 Increase activity as tolerated Physical therapy evaluation Pulmonary service will sign off and follow on an as-needed basis From pulmonary perspective he could be considered for discharge home today I have personally seen and examined the patient, performed the documentation and the assessment and plan as written. Number of minutes spent on the visit: [10] I have personally seen and examined the patient and reviewed the documentation. I performed a joint evaluation with the nurse practitioner in this evaluation was done more than 20 minutes. I fully agree with the documentation above and the plan of care. The patient's sodium is improved. No active issues for now. Outpatient bronchoscopy. Patient is cleared for discharge from a pulmonary standpoint. We'll see him on an as-needed basis. Time with Patient: Less than 30
[2021-10-17 14:03] VITALS: BP 105/67; PULSE 82; RESP 21; TEMP 97.6
--- NOTE | 2021-10-19 07:41 | P.DS ---
Providers Date of admission: 10/11/21 17:24 Attending physician: Corwin Santoyo Consults: 10/11/21 17:06 Consult Physician Routine Consulting Provider: Becca Radford Consult Reason/Comments: Hyponatremia Do you want consulting provider notified?: Yes 10/11/21 17:38 Consult Physician Urgent Consulting Provider: Jhonatan Thompson Reason/Comments: Hyponat Do you want consulting provider notified?: Already Contacted Primary care physician: See Bearden Sherlyn Lds Hospital Course: Final Diagnosis -Hyponatremia appears to be acute, secondary to hypovolemia and may also have a component of SIADH, secondary to lung mass . Sodium level today 131 today. 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 Repeat labs in 2-3 days to check sodium and hemoglobin. He is discharged on a 1200 cc fluid restriction. Hospital Course This is a 66 year old male who presents to the hospital with complaints of feeling dizzy and weak and was found to have a sodium level of 113 on admission. Patient was admitted to the ICU and started on 3% saline infusion and consult placed to nephrology. Patient does drink beer on a daily basis, and he also has a known lung mass in the right upper lobe with nondiagnostic bronchoscopy in the past. He had a PET scan in 2019 showing abnormal uptake with a spiculated lesion in the chest and has had no follow up wince. There is concern for SIADH, patient has been hospitalized before for similar complaints. Patients sodium had a rapid increase on 3% saline and was transitioned to a D5 gtt. Urine osmolality is 267. Sodium improved to 121, and he was transferred out of the ICU, he did receive 2 doses of samsca as well. He was cleared for discharge once sodium level remained stable at 130 and 131. He has been started on oral sodium chloride and sodium bicarbonate. Patient also has a history of iron deficiency anemia states he is supposed to take his iron daily however he states that it messes up his stomach. He did receive 3 doses of oral iron as his hemoglobin was in the 7.9 - 7.6 range. Hemoglobin dropped to 6.7 and patient received 1 bag of packed red blood cells. There is no sign of acute GI bleeding, and his hemoglobin came up to 7.9. Additional Diagnostics include Chest X-Ray shows right upper lobe nodule/lung mass Chest CT enlarging right upper lobe mass, previous nodules essentially the stable in size as previous Urinalysis on 10/11/2021 showing +1 ketones, urine random sodium <20. COVID negative, Influenza A/B negative. 10/17/2021 Patient evaluated today sitting up in the chair. Plan is for discharge today with home care services. His labs have stabilized. He denies chest pain, denies shortness of breath. Denies dizziness, lightheadedness. Denies nausea, vomiting, diarrhea. States he is urinating without difficulty. He denies blood in the stool, black, maroon, or bright red. Lungs are clear, S1 S2 auscultated, abdomen is soft and non-tender. Focal neurological exam is negative. Labs today showing WBC 7.65, hgb 7.9, hct 25.6, MCV 72.1, platelets 267, sodium 131, potassium 4.5, chloride 103, CO2 17, BUN 12.4, creat 0.7, glucose 86, calcium 8.5, magnesium 2.0, TSH 1.400. Patient cleared for discharge today on home medications as well as thiamine twice a day, sodium bicarbonate 650 mg bid, sodium chloride 1 tab daily, ferrous sulfate daily and patient will also be given colace to avoid constipation. Please see medication reconciliation for a list of current medication. Thank you for allowing us to participate in the care of this patient. The impression and plan of care has been dictated by Amarilis James Nurse Practitioner as directed. Dr. Major MD I have performed a history and physical examination and medical decision making of this patient, discussed the same with the dictator, and agree with the dictators assessment and plan as written, documented as a scribe. Based on total visit time, I have performed more than 50% of this visit. Patient Condition at Discharge: Stable Plan - Discharge Summary Discharge Rx Participant: No New Discharge Prescriptions: New amLODIPine [Norvasc] 5 mg PO DAILY #30 tab Thiamine [Vitamin B-1] 100 mg PO BID-W/MEALS #60 tab Sodium Bicarbonate Tab 650 mg PO BID #60 tab Sodium Chloride Tab 1 gm PO DAILY #30 tab Docusate [Colace] 100 mg PO DAILY #30 capsule Ferrous Sulfate [Feosol] 325 mg PO DAILY #30 tab Continue diphenhydrAMINE [Benadryl] 25 - 50 mg PO HS PRN PRN Reason: Insomnia Omeprazole Magnesium [PriLOSEC OTC] 20 mg PO DAILY PRN PRN Reason: Heartburn Famotidine [Pepcid] 20 mg PO DAILY PRN PRN Reason: Heartburn Acetaminophen Tab [Tylenol] 1,000 mg PO Q6H PRN PRN Reason: Fever And/ Or Pain cloNIDine HCL [Catapres] 0.1 mg PO BID Discontinued amLODIPine [Norvasc] 10 mg PO DAILY Discharge Medication List Omeprazole Magnesium [PriLOSEC OTC] 20 mg PO DAILY PRN 06/14/21 [History] Acetaminophen Tab [Tylenol] 1,000 mg PO Q6H PRN 10/11/21 [History] Famotidine [Pepcid] 20 mg PO DAILY PRN 10/11/21 [History] diphenhydrAMINE [Benadryl] 25 - 50 mg PO HS PRN 10/11/21 [History] cloNIDine HCL [Catapres] 0.1 mg PO BID 10/12/21 [History] Docusate [Colace] 100 mg PO DAILY #30 capsule 10/16/21 [Rx] Ferrous Sulfate [Feosol] 325 mg PO DAILY #30 tab 10/16/21 [Rx] Thiamine [Vitamin B-1] 100 mg PO BID-W/MEALS #60 tab 10/16/21 [Rx] amLODIPine [Norvasc] 5 mg PO DAILY #30 tab 10/16/21 [Rx] Sodium Bicarbonate Tab 650 mg PO BID #60 tab 10/17/21 [Rx] Sodium Chloride Tab 1 gm PO DAILY #30 tab 10/17/21 [Rx] Follow up Appointment(s)/Referral(s): Becca Radford MD [STAFF PHYSICIAN] - 11/07/21 1:20 pm (Hyponatremia) See Plata III, MD [Primary Care Provider] - 1-2 days (Office currently closed, please call and schedule appointment ) [facility], [NON-STAFF] - ([facility] will contact you to arrange a visit. ) Ambulatory/Diagnostic Orders: Basic Metabolic Panel [LAB.AMB] Time Frame: 2 Days, Location: None Selected Complete Blood Count w/diff [LAB.AMB] Time Frame: 2 Days, Location: None Selected Patient Instructions/Handouts: Iron Rich Diet (DC), Hyponatremia (DC), Iron Deficiency Anemia (GEN) Activity/Diet/Wound Care/Special Instructions: Repeat labs in 2-3 days, will need mag, BMP, and CBC Follow up nephrology in 1 week outpatient Follow up with primary care in 2-3 days outpatient Continue with oral iron daily with breakfast Continue with omeprazole to avoid stomach upset when taking oral iron. Colace has been sent to take daily to avoid constipation Avoid drinking alcohol Discharge Disposition: HOME WITH HOME HEALTH SERVICES
== END 2021-10-17 15:38 | disposition home health service (06) | DRG 644 ==
LOC: EC 13:46 → 2SICU 17:24 → 4SSUR 10-14 11:45
PROVIDERS: ADMIT Hospitalist; ATTEND Hospitalist
PROC: 30233N1 Transfusion of Nonautologous Red Blood Cells into Peripheral Vein, Percutaneous Approach (ICD-10-PCS; principal; 2021-10-16)
DX: E22.2 Syndrome of inappropriate secretion of antidiuretic hormone (principal); E87.2 Acidosis; F10.239 Alcohol dependence with withdrawal, unspecified; W19.XXXA Unspecified fall, initial encounter; E86.1 Hypovolemia; F17.210 Nicotine dependence, cigarettes, uncomplicated; F41.9 Anxiety disorder, unspecified; I10 Essential (primary) hypertension; J44.9 Chronic obstructive pulmonary disease, unspecified; D53.9 Nutritional anemia, unspecified; K29.70 Gastritis, unspecified, without bleeding; D50.9 Iron deficiency anemia, unspecified; R63.4 Abnormal weight loss; R63.0 Anorexia; Z71.41 Alcohol abuse counseling and surveillance of alcoholic; R74.01 Elevation of levels of liver transaminase levels; R91.8 Other nonspecific abnormal finding of lung field; Z79.899 Other long term (current) drug therapy; Z82.49 Family history of ischemic heart disease and other diseases of the circulatory system; Z85.828 Personal history of other malignant neoplasm of skin; Z87.19 Personal history of other diseases of the digestive system; Z91.19 Patient's noncompliance with other medical treatment and regimen; Z28.310 Unvaccinated for COVID-19; Z20.822 Contact with and (suspected) exposure to COVID-19; Z98.890 Other specified postprocedural states; Z68.21 Body mass index [BMI] 21.0-21.9, adult; Z86.010 Personal history of colon polyps
CPT/HCPCS: 36415; 70450; 71046; 71260; 72125; 72220; 80048; 80053; 81003; 82550; 83605; 83735; 83935; 84100; 84295; 84300; 84443; 84484; 85025; 85610; 85730; 86850; 86900; 86901; 86920; 87502; 87635; 93005; 94760; 96360; 96361; 96372; 99285

== ENCOUNTER 2021-10-20 21:34 | Inpatient (IN) | payer MEDICARE ==
[2021-10-20] MEDS ORDERED: SODIUM CHLORIDE 0.9% 1,000 ML IV STA (22:43)
[2021-10-20] MEDS ORDERED: SODIUM CHLORIDE 0.9% 500 ML 500 ML IV ONE (22:43)
--- NOTE | 2021-10-20 22:49 | ED ---
General Adult HPI - General Chief complaint: Fall Stated complaint: Fall, Weakness Time Seen by Provider: 10/20/21 22:06 Source: patient, EMS Mode of arrival: EMS Limitations: altered mental status (There appears to be some delirium versus underlying dementia) - History of Present Illness Initial comments: This patient is a 66-year-old man brought by ambulance for evaluation after he had been found on the floor of his home by his sister. It is unknown how long he had spent on the floor. When I interview the patient, he denies any injury. Patient states she was very weak and could not get up. He denies focal weakness. He is denying other symptoms. -: unknown Improves with: none Worsens with: none - Related Data Home Medications Medication Instructions Recorded Confirmed Omeprazole Magnesium [PriLOSEC OTC] 20 mg PO DAILY PRN 06/14/21 10/20/21 Acetaminophen Tab [Tylenol] 1,000 mg PO Q6H PRN 10/11/21 10/20/21 Famotidine [Pepcid] 20 mg PO DAILY PRN 10/11/21 10/20/21 diphenhydrAMINE [Benadryl] 25 - 50 mg PO HS PRN 10/11/21 10/20/21 cloNIDine HCL [Catapres] 0.1 mg PO BID 10/12/21 10/20/21 Previous Rx's Medication Instructions Recorded Docusate [Colace] 100 mg PO DAILY #30 capsule 10/16/21 Ferrous Sulfate [Feosol] 325 mg PO DAILY #30 tab 10/16/21 Thiamine [Vitamin B-1] 100 mg PO BID-W/MEALS #60 tab 10/16/21 amLODIPine [Norvasc] 5 mg PO DAILY #30 tab 10/16/21 Sodium Bicarbonate Tab 650 mg PO BID #60 tab 10/17/21 Sodium Chloride Tab 1 gm PO DAILY #30 tab 10/17/21 Allergies Allergy/AdvReac Type Severity Reaction Status Date / Time No Known Allergies Allergy Verified 10/11/21 17:16 Review of Systems ROS Statement: Those systems with pertinent positive or pertinent negative responses have been documented in the HPI. ROS Other: All systems not noted in ROS Statement are negative. Limitations: ROS unobtainable due to patients medical condition (Dementia versus delirium) Constitutional: Reports: weakness Respiratory: Denies: dyspnea Cardiovascular: Denies: chest pain Gastrointestinal: Denies: abdominal pain, vomiting Musculoskeletal: Denies: back pain Neurological: Denies: headache Past Medical History Past Medical History: Cancer, GERD/Reflux, Hypertension Additional Past Medical History / Comment(s): paralyzed vocal cord, SKIN CANCER(FACE), mass in lungs History of Any Multi-Drug Resistant Organisms: None Reported Past Surgical History: Orthopedic Surgery Additional Past Surgical History / Comment(s): triple endoscopy, LT KNEE SCOPE, LT KNEE MENISCUS SX Past Anesthesia/Blood Transfusion Reactions: No Reported Reaction Additional Past Anesthesia/Blood Transfusion Reaction / Comment(s): . Past Psychological History: No Psychological Hx Reported Smoking Status: Current every day smoker Past Alcohol Use History: Daily Past Drug Use History: None Reported - Past Family History Father Family Medical History: Congestive Heart Failure (CHF), Myocardial Infarction ([place]) Mother Family Medical History: No Reported History Additional Family Medical History / Comment(s): MOM IS IN GOOD HEALTH AT AGE 96 General Exam Limitations: no limitations General appearance: alert Head exam: Present: atraumatic, normocephalic Eye exam: Present: normal appearance, PERRL. Absent: scleral icterus, conjunctival injection ENT exam: Present: mucous membranes dry Neck exam: Present: full ROM. Absent: tenderness Respiratory exam: Present: rhonchi. Absent: respiratory distress, wheezes, rales, accessory muscle use, decreased breath sounds Cardiovascular Exam: Present: regular rate, normal rhythm, normal heart sounds. Absent: systolic murmur, diastolic murmur, rubs, gallop GI/Abdominal exam: Present: soft. Absent: distended, tenderness, guarding, rebound, rigid, mass Extremities exam: Present: normal inspection, normal capillary refill, pedal edema (There is edema of the left leg greater than right). Absent: calf tenderness Back exam: Present: normal inspection. Absent: CVA tenderness (R), CVA tenderness (L) Neurological exam: Present: alert Skin exam: Present: warm, dry, intact, normal color. Absent: rash Course Vital Signs 10/20/21 10/20/21 10/20/21 21:36 21:41 22:41 Temperature 97.5 F L Pulse Rate 62 89 Respiratory 20 18 20 Rate Blood Pressure 129/80 129/80 O2 Sat by Pulse 97 97 Oximetry 10/21/21 10/21/21 02:52 04:27 Temperature Pulse Rate 88 70 Respiratory 16 14 Rate Blood Pressure 112/83 124/77 O2 Sat by Pulse 96 100 Oximetry EKG Findings - EKG Comments: EKG Findings:: Similar to comparison ECG, from earlier this month - EKG Results: EKG: interpreted by FERMIN, sinus rhythm (With occasional premature beat. Rate 84 bpm), normal axis Medical Decision Making - Lab Data Result diagrams: 10/20/21 23:02 10/20/21 23:02 Lab Results 10/20/21 10/20/21 10/20/21 Range/Units 23:02 23:02 23:02 WBC 6.0 (3.8-10.6) k/uL RBC 3.78 L (4.30-5.90) m/uL Hgb 8.8 L (13.0-17.5) gm/dL Hct 28.3 L (39.0-53.0) % MCV 75.0 L (80.0-100.0) fL MCH 23.4 L (25.0-35.0) pg MCHC 31.2 (31.0-37.0) g/dL RDW 21.8 H (11.5-15.5) % Plt Count 313 (150-450) k/uL MPV 7.1 Neutrophils % 71 % Lymphocytes % 21 % Monocytes % 5 % Eosinophils % 0 % Basophils % 1 % Neutrophils # 4.3 (1.3-7.7) k/uL Lymphocytes # 1.3 (1.0-4.8) k/uL Monocytes # 0.3 (0-1.0) k/uL Eosinophils # 0.0 (0-0.7) k/uL Basophils # 0.0 (0-0.2) k/uL Hypochromasia Moderate Poikilocytosis Slight Anisocytosis Moderate Microcytosis Moderate PT 11.7 (9.0-12.0) sec INR 1.1 (<1.2) APTT 36.1 H (22.0-30.0) sec Sodium 117 L* (137-145) mmol/L Potassium 3.7 (3.5-5.1) mmol/L Chloride 89 L (98-107) mmol/L Carbon Dioxide 19 L (22-30) mmol/L Anion Gap 9 mmol/L BUN 8 L (9-20) mg/dL Creatinine 0.56 L (0.66-1.25) mg/dL Est GFR (CKD-EPI)AfAm >90 (>60 ml/min/1.73 sqM) Est GFR (CKD-EPI)NonAf >90 (>60 ml/min/1.73 sqM) Glucose 70 L (74-99) mg/dL POC Glucose (mg/dL) (75-99) mg/dL POC Glu Research Hydraulic Engineer ID Calcium 8.0 L (8.4-10.2) mg/dL Total Bilirubin 1.1 (0.2-1.3) mg/dL AST 41 (17-59) U/L ALT 18 (4-49) U/L Alkaline Phosphatase 84 (38-126) U/L Ammonia (<30) umol/L Creatine Kinase 307 H (55-170) U/L CK-MB (CK-2) (0.0-2.4) ng/mL Troponin I (0.000-0.034) ng/mL Total Protein 6.7 (6.3-8.2) g/dL Albumin 3.3 L (3.5-5.0) g/dL Serum Alcohol <10 mg/dL Coronavirus (PCR) (Not Detectd) 10/20/21 10/20/21 10/20/21 Range/Units 23:02 23:02 23:02 WBC (3.8-10.6) k/uL RBC (4.30-5.90) m/uL Hgb (13.0-17.5) gm/dL Hct (39.0-53.0) % MCV (80.0-100.0) fL MCH (25.0-35.0) pg MCHC (31.0-37.0) g/dL RDW (11.5-15.5) % Plt Count (150-450) k/uL MPV Neutrophils % % Lymphocytes % % Monocytes % % Eosinophils % % Basophils % % Neutrophils # (1.3-7.7) k/uL Lymphocytes # (1.0-4.8) k/uL Monocytes # (0-1.0) k/uL Eosinophils # (0-0.7) k/uL Basophils # (0-0.2) k/uL Hypochromasia Poikilocytosis Anisocytosis Microcytosis PT (9.0-12.0) sec INR (<1.2) APTT (22.0-30.0) sec Sodium (137-145) mmol/L Potassium (3.5-5.1) mmol/L Chloride (98-107) mmol/L Carbon Dioxide (22-30) mmol/L Anion Gap mmol/L BUN (9-20) mg/dL Creatinine (0.66-1.25) mg/dL Est GFR (CKD-EPI)AfAm (>60 ml/min/1.73 sqM) Est GFR (CKD-EPI)NonAf (>60 ml/min/1.73 sqM) Glucose (74-99) mg/dL POC Glucose (mg/dL) (75-99) mg/dL POC Glu Research Hydraulic Engineer ID Calcium (8.4-10.2) mg/dL Total Bilirubin (0.2-1.3) mg/dL AST (17-59) U/L ALT (4-49) U/L Alkaline Phosphatase (38-126) U/L Ammonia <9 (<30) umol/L Creatine Kinase (55-170) U/L CK-MB (CK-2) 6.5 H (0.0-2.4) ng/mL Troponin I 0.047 H* (0.000-0.034) ng/mL Total Protein (6.3-8.2) g/dL Albumin (3.5-5.0) g/dL Serum Alcohol mg/dL Coronavirus (PCR) Detected A (Not Detectd) 10/20/21 Range/Units 23:04 WBC (3.8-10.6) k/uL RBC (4.30-5.90) m/uL Hgb (13.0-17.5) gm/dL Hct (39.0-53.0) % MCV (80.0-100.0) fL MCH (25.0-35.0) pg MCHC (31.0-37.0) g/dL RDW (11.5-15.5) % Plt Count (150-450) k/uL MPV Neutrophils % % Lymphocytes % % Monocytes % % Eosinophils % % Basophils % % Neutrophils # (1.3-7.7) k/uL Lymphocytes # (1.0-4.8) k/uL Monocytes # (0-1.0) k/uL Eosinophils # (0-0.7) k/uL Basophils # (0-0.2) k/uL Hypochromasia Poikilocytosis Anisocytosis Microcytosis PT (9.0-12.0) sec INR (<1.2) APTT (22.0-30.0) sec Sodium (137-145) mmol/L Potassium (3.5-5.1) mmol/L Chloride (98-107) mmol/L Carbon Dioxide (22-30) mmol/L Anion Gap mmol/L BUN (9-20) mg/dL Creatinine (0.66-1.25) mg/dL Est GFR (CKD-EPI)AfAm (>60 ml/min/1.73 sqM) Est GFR (CKD-EPI)NonAf (>60 ml/min/1.73 sqM) Glucose (74-99) mg/dL POC Glucose (mg/dL) 76 (75-99) mg/dL POC Glu Research Hydraulic Engineer ID Desiree Talbot Calcium (8.4-10.2) mg/dL Total Bilirubin (0.2-1.3) mg/dL AST (17-59) U/L ALT (4-49) U/L Alkaline Phosphatase (38-126) U/L Ammonia (<30) umol/L Creatine Kinase (55-170) U/L CK-MB (CK-2) (0.0-2.4) ng/mL Troponin I (0.000-0.034) ng/mL Total Protein (6.3-8.2) g/dL Albumin (3.5-5.0) g/dL Serum Alcohol mg/dL Coronavirus (PCR) (Not Detectd) Disposition Clinical Impression: Hyponatremia, Weakness, Altered mental status, COVID-19 Disposition: ADMITTED IP TO THIS HOSP Condition: Poor Is patient prescribed a controlled substance at d/c from ED?: No
[2021-10-20 23:05] LABS: Glucose,Whole Blood 76 mg/dL (75-99)
[2021-10-20 23:29] LABS: Anisocytosis Moderate; Basophils % (A) 1 %; Eosinophils % (A) 0 %; HCT 28.3 % (39.0-53.0); HGB 8.8 gm/dL (13.0-17.5); Hypochromasia Moderate; Lymphocytes # (A) 1.3 k/uL (1.0-4.8); Lymphocytes % (A) 21 %; MCH 23.4 pg (25.0-35.0); MCHC 31.2 g/dL (31.0-37.0); Mean Platelet Volume 7.1; Microcytosis Moderate; Monocytes # (A) 0.3 k/uL (0-1.0); Monocytes % (A) 5 %; Neutrophils # (A) 4.3 k/uL (1.3-7.7); Neutrophils % (A) 71 %; Platelet Count 313 k/uL (150-450); Poikilocytosis Slight; RBC 3.78 m/uL (4.30-5.90); RDW 21.8 % (11.5-15.5)
[2021-10-20 23:41] LABS: INR 1.1 (<1.2); Partial Thromboplastin Time 36.1 sec (22.0-30.0); Prothrombin Time 11.7 sec (9.0-12.0)
[2021-10-20 23:45] LABS: ALT 18 U/L (4-49); AST 41 U/L (17-59); African American GFR (CKD) >90 (>60 ml/min/1.73 sqM); Albumin 3.3 g/dL (3.5-5.0); Alcohol <10 mg/dL; Alkaline Phosphatase 84 U/L (38-126); Anion Gap 9 mmol/L; Blood Urea Nitrogen 8 mg/dL (9-20); Carbon Dioxide 19 mmol/L (22-30); Chloride 89 mmol/L (98-107); Creatine Kinase 307 U/L (55-170); Glucose 70 mg/dL (74-99); Non-African American GFR(CKD) >90 (>60 ml/min/1.73 sqM); Potassium 3.7 mmol/L (3.5-5.1); Total Bilirubin 1.1 mg/dL (0.2-1.3); Total Protein 6.7 g/dL (6.3-8.2)
--- NOTE | 2021-10-20 23:50 | CT ---
EXAMINATION TYPE: CT brain cspine wo con DATE OF EXAM: 10/20/2021 COMPARISON: 10/11/2021 HISTORY: Fall CT DLP: 1556 mGycm Automated exposure control for dose reduction was used. Images of the brain and cervical spine obtained with no contrast. There is some hypodensity poorly marginated in the right parietal and posterior temporal lobes consis tent with microvascular ischemia and infarct similar to old exam. There is no midline shift. No mass effect. No evidence of intracranial hemorrhage. The calvarium is intact. The cervical vertebra show slight increased lordotic curvature at the C7 C6 level. The posterior [place] ents are intact. Disc spaces are fairly normal. No compression fracture. Prevertebral soft tissues ar e intact. No cervical paraspinal mass. Skull base is intact. There is normal aeration of the mastoid air cells. IMPRESSION: No acute abnormality of the cervical spine. No fracture. No change compared to old exam. 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 No hemorrhage. No acute intracranial abnormality.
--- NOTE | 2021-10-20 23:52 | XR ---
EXAMINATION TYPE: XR chest 1V DATE OF EXAM: 10/20/2021 COMPARISON: 10/11/2021 HISTORY: Short of breath. Altered mental status TECHNIQUE: Single view FINDINGS: There is 3.5 cm rounded masslike density in the right upper lobe. There is coarsening of in terstitial markings. No definite heart failure. Heart appears slightly enlarged. There is mild pulmon bob congestion. There are chest leads. IMPRESSION: Increased pulmonary congestion compared to old exam. No definite heart failure. Right upp er lobe mass not significantly changed compared to recent exam
[2021-10-20 23:56] LABS: Creatine Kinase MB 6.5 ng/mL (0.0-2.4)
[2021-10-21 00:10] LABS: Sodium 117 mmol/L (137-145); Troponin I 0.047 ng/mL (0.000-0.034)
--- NOTE | 2021-10-21 00:20 | US ---
EXAMINATION TYPE: US venous doppler duplex LE LT DATE OF EXAM: 10/21/2021 12:06 AM COMPARISON: NONE CLINICAL HISTORY: L leg swelling. SIDE PERFORMED: Left TECHNIQUE: The lower extremity deep venous system is examined utilizing real time linear array sonog juan luis with graded compression, doppler sonography and color-flow sonography. VESSELS IMAGED: Common Femoral Vein Deep Femoral Vein Greater Saphenous Vein * Femoral Vein Popliteal Vein Small Saphenous Vein * Proximal Calf Veins (* superficial vessels) Left Leg: Negative for DVT IMPRESSION: No evidence of deep vein thrombosis in the left leg.
[2021-10-21] MEDS ORDERED: SODIUM CHLORIDE 0.9% 1,000 ML IV ONE (01:06)
[2021-10-21] MEDS ORDERED: ACETAMINOPHEN TAB 325 MG TAB PO PRN (01:08)
[2021-10-21] MEDS ORDERED: NALOXONE 0.4 MG/ML 1 ML VIAL IV PRN (01:08)
[2021-10-21 03:18] LABS: Appearance,Urine Clear (Clear); Bilirubin,Urine Negative (Negative); Blood,Urine Negative (Negative); Color,Urine Colorless; Glucose,Urine (UA) Negative (Negative); Ketones,Urine 1+ (Negative); Leukocyte Esterase,Urine Negative (Negative); Nitrite,Urine Negative (Negative); Protein,Urine Negative (Negative); Specific Gravity,Urine 1.002 (1.001-1.035); Urobilinogen,Urine <2.0 mg/dL (<2.0)
[2021-10-21] MEDS ORDERED: diphenhydrAMINE 50 MG CAP PO PRN (08:55)
[2021-10-21] MEDS ORDERED: FAMOTIDINE 20 MG TAB PO PRN (08:55)
[2021-10-21] MEDS ORDERED: SODIUM CHLORIDE 0.9% 1,000 ML IV SCH (09:00)
[2021-10-21] MEDS ORDERED: SODIUM CHLORIDE TAB 1 GM TAB PO SCH (09:00)
--- NOTE | 2021-10-21 09:43 | P.NPCON ---
History of Present Illness - History of Present Illness Patient is a 66-year-old male who was admitted to the hospital as he was found on the floor by his sister. Patient was recently discharged from the hospital about 3 days ago after an admission for what her status changes and severe hyponatremia. Rations initially received 3% saline following that his sodium had decreased and did not improve with IV hydration and he responded well to Samsca. Patient had been eating fairly well. His sodium was up to 131 at the time of discharge on 10/17/2021. Patient denies any nausea vomiting diarrhea. He did state that he had not been eating much and has had some cough. No new medications that were started. Systolic blood pressure 114-1 24 mmHg. No diuretics at home Review of Systems As per HPI other systems negative Past Medical History Past Medical History: Cancer, GERD/Reflux, Hypertension Additional Past Medical History / Comment(s): paralyzed vocal cord, SKIN CANCER(FACE), mass in lungs History of Any Multi-Drug Resistant Organisms: None Reported Past Surgical History: Orthopedic Surgery Additional Past Surgical History / Comment(s): triple endoscopy, LT KNEE SCOPE, LT KNEE MENISCUS SX Past Anesthesia/Blood Transfusion Reactions: No Reported Reaction Additional Past Anesthesia/Blood Transfusion Reaction / Comment(s): . Past Psychological History: No Psychological Hx Reported Smoking Status: Current every day smoker Past Alcohol Use History: Daily Past Drug Use History: None Reported - Past Family History Father Family Medical History: Congestive Heart Failure (CHF), Myocardial Infarction ([place]) Mother Family Medical History: No Reported History Additional Family Medical History / Comment(s): MOM IS IN GOOD HEALTH AT AGE 96 Medications and Allergies Home Medications Medication Instructions Recorded Confirmed Type Omeprazole Magnesium [PriLOSEC OTC] 20 mg PO DAILY PRN 06/14/21 10/20/21 History Acetaminophen Tab [Tylenol] 1,000 mg PO Q6H PRN 10/11/21 10/20/21 History Famotidine [Pepcid] 20 mg PO DAILY PRN 10/11/21 10/20/21 History diphenhydrAMINE [Benadryl] 25 - 50 mg PO HS PRN 10/11/21 10/20/21 History cloNIDine HCL [Catapres] 0.1 mg PO BID 10/12/21 10/20/21 History Docusate [Colace] 100 mg PO DAILY #30 capsule 10/16/21 10/20/21 Rx Ferrous Sulfate [Feosol] 325 mg PO DAILY #30 tab 10/16/21 10/20/21 Rx Thiamine [Vitamin B-1] 100 mg PO BID-W/MEALS #60 tab 10/16/21 10/20/21 Rx amLODIPine [Norvasc] 5 mg PO DAILY #30 tab 10/16/21 10/20/21 Rx Sodium Bicarbonate Tab 650 mg PO BID #60 tab 10/17/21 10/20/21 Rx Sodium Chloride Tab 1 gm PO DAILY #30 tab 10/17/21 10/20/21 Rx Allergies Allergy/AdvReac Type Severity Reaction Status Date / Time No Known Allergies Allergy Verified 10/11/21 17:16 Physical Exam Vitals: Vital Signs Temp Pulse Pulse Resp BP BP Pulse Ox 10/21/21 04:45 97.6 F 75 18 114/64 98 10/21/21 04:27 70 14 124/77 100 10/21/21 02:52 88 16 112/83 96 10/20/21 22:41 20 10/20/21 21:41 89 18 129/80 97 10/20/21 21:36 97.5 F L 62 20 129/80 97 Intake and Output 10/20/21 10/21/21 10/21/21 22:59 06:59 14:59 Other: Weight 60.328 kg 60.328 kg Awake, comfortable, not in any acute distress Alert oriented 3 Examination of the heart S1 and S2 Examination of the lungs bilateral breath sounds are heard Abdomen is soft nontender Examination of the lower extremities shows no evidence of edema FRUIT PEELER exam grossly intact Results - Lab Results Most recent lab results Calcium 8.0 mg/dL (8.4-10.2) L 10/20/21 23:02 10/20/21 23:02 10/20/21 23:02 Assessment and Plan Assessment: 1. Hyponatremia possibly hypovolemic however patient had an element of SIADH on his last hospitalization. He had responded well to Samsca. Currently patient is maintained on normal saline. I will check urine osmolality and urine sodium and follow-up on the labs that were drawn this morning. If his sodium is not f urther improvement IV fluids will be discontinued. Continue with free water restriction for now 2. Metabolic acidosis currently maintained on sodium bicarb. No diarrhea per patient. Renal function is well-preserved 3. Anemia, rule out iron deficiency. No active bleeding noted. 4. Hypertension currently controlled maintained on Norvasc. Plan: Follow-up on sodium from today Check urine sodium and urine osmolality If sodium is not further improved I will DC IV fluids and give a dose of Samsca. Continue to monitor serum sodium every 4-6 hours for now. Encourage increased oral intake particularly protein
[2021-10-21] MEDS: amLODIPine 5 MG TAB PO SCH ×2 (09:50→13:59)
[2021-10-21] MEDS: FERROUS SULFATE 325 MG TAB PO SCH (09:50)
[2021-10-21] MEDS: SODIUM BICARBONATE TAB 650 MG TAB PO SCH ×2 (09:50→21:22)
[2021-10-21] MEDS: DOCUSATE 100 MG CAP PO SCH (09:50)
[2021-10-21 10:04] LABS: African American GFR (CKD) >90 (>60 ml/min/1.73 sqM); Anion Gap 10 mmol/L; Blood Urea Nitrogen 7 mg/dL (9-20); Calcium 8.1 mg/dL (8.4-10.2); Carbon Dioxide 18 mmol/L (22-30); Chloride 97 mmol/L (98-107); Glucose 66 mg/dL (74-99); Non-African American GFR(CKD) >90 (>60 ml/min/1.73 sqM); Potassium 3.8 mmol/L (3.5-5.1); Sodium 125 mmol/L (137-145)
--- NOTE | 2021-10-21 13:37 | P.CNPUL ---
History of Present Illness Consult date: 10/21/21 Reason for consult: lung mass History of present illness: 66-year-old male patient brought into the emergency department as the patient was found on the floor at home by her sister. The exact downtime is not known as the patient was found on the floor by family members. The patient denied having any injuries. He stated that he was getting and feeling very weak and he was unable to get up. No focal neurological deficits. The patient's was recently discharged from the hospital 3 days ago after being admitted for altered electrolytes and severe hyponatremia. He was given 3% hypertonic saline and his sodium improved and the patient responded well on the care of nephrology. He had been eating well. His sodium was up to 131 at time of discharge. Denies having any nausea vomiting or abdominal pain. No chest pain. No new medications have been started. No diuretics at home. The patient was also seen by our services during the earlier hospitalization. The patient had a lung mass that was highly suspicious for bronchogenic carcinoma and we recommended outpatient follow-up with a PET scan and a navigational bronchoscopy for this patient. The patient an enlarging mass in the right upper lobe that was most likely consistent with bronchogenic carcinoma. This was noted on a CAT scan of the chest that was done on 10/12/2021. There is a high suspicion for bronchogenic cancer. The repeat chest x-ray during this current admission showed the same finding of a right upper lobe mass. The patient came back to the emergency afebrile, hemodynamically stable, his sodium was down 217 with a BUN of 8 and a creatinine of 0.56 and the patient's chloride level was 89 and a serum bicarb was 19. The white cell count was 6 with a hemoglobin of 8.8. His liver function tests were normal, CPK was 307, his COVID 19 testing was posi tive, troponin was 0.047 and blood sugar was at 76. The patient was accordingly admitted for further care. Review of Systems CONSTITUTIONAL: Generalized weakness, and some weight loss. Fatigue and tiredness HEENT: Negative. CARDIOVASCULAR: Negative RESPIRATORY: Negative GASTROINTESTINAL: Poor appetite and weight loss. HEMATOLOGIC: Negative GENITOURINARY: Negative SKIN: No rashes. Psychiatric: Negative Urologic: Negative Musculoskeletal: Weakness Past Medical History Past Medical History: Cancer, GERD/Reflux, Hypertension Additional Past Medical History / Comment(s): paralyzed vocal cord, SKIN CANCER(FACE), mass in lungs History of Any Multi-Drug Resistant Organisms: None Reported Past Surgical History: Orthopedic Surgery Additional Past Surgical History / Comment(s): triple endoscopy, LT KNEE SCOPE, LT KNEE MENISCUS SX Past Anesthesia/Blood Transfusion Reactions: No Reported Reaction Additional Past Anesthesia/Blood Transfusion Reaction / Comment(s): . Past Psychological History: No Psychological Hx Reported Smoking Status: Current every day smoker Past Alcohol Use History: Daily Past Drug Use History: None Reported - Past Family History Father Family Medical History: Congestive Heart Failure (CHF), Myocardial Infarction ([place]) Mother Family Medical History: No Reported History Additional Family Medical History / Comment(s): MOM IS IN GOOD HEALTH AT AGE 96 Medications and Allergies Home Medications Medication Instructions Recorded Confirmed Type Omeprazole Magnesium [PriLOSEC OTC] 20 mg PO DAILY PRN 06/14/21 10/20/21 History Acetaminophen Tab [Tylenol] 1,000 mg PO Q6H PRN 10/11/21 10/20/21 History Famotidine [Pepcid] 20 mg PO DAILY PRN 10/11/21 10/20/21 History diphenhydrAMINE [Benadryl] 25 - 50 mg PO HS PRN 10/11/21 10/20/21 History cloNIDine HCL [Catapres] 0.1 mg PO BID 10/12/21 10/20/21 History Docusate [Colace] 100 mg PO DAILY #30 capsule 10/16/21 10/20/21 Rx Ferrous Sulfate [Feosol] 325 mg PO DAILY #30 tab 10/16/21 10/20/21 Rx Thiamine [Vitamin B-1] 100 mg PO BID-W/MEALS #60 tab 10/16/21 10/20/21 Rx amLODIPine [Norvasc] 5 mg PO DAILY #30 tab 10/16/21 10/20/21 Rx Sodium Bicarbonate Tab 650 mg PO BID #60 tab 10/17/21 10/20/21 Rx Sodium Chloride Tab 1 gm PO DAILY #30 tab 10/17/21 10/20/21 Rx Allergies Allergy/AdvReac Type Severity Reaction Status Date / Time No Known Allergies Allergy Verified 10/11/21 17:16 Physical Exam Vitals: Vital Signs Temp Pulse Pulse Resp BP BP Pulse Ox 10/21/21 08:00 97.9 F 91 18 98/56 95 05/28/22 04:45 97.6 F 75 18 114/64 98 10/21/21 04:27 70 14 124/77 100 10/21/21 02:52 88 16 112/83 96 10/20/21 22:41 20 10/20/21 21:41 89 18 129/80 97 10/20/21 21:36 97.5 F L 62 20 129/80 97 Intake and Output 10/20/21 10/21/21 10/21/21 22:59 06:59 14:59 Other: Weight 60.328 kg 60.328 kg GENERAL EXAM: Alert, pleasant 66-year-old male patient, appears older than stated age, on room air, comfortable in no apparent distress. HEAD: Normocephalic. EYES: Normal reaction of pupils, equal size. NOSE: Clear with pink turbinates. THROAT: No erythema or exudates. NECK: No masses, no JVD. CHEST: No chest wall deformity. LUNGS: Equal air entry with no crackles, wheeze, rhonchi or dullness. CVS: S1 and S2 normal with no audible murmur, regular rhythm. ABDOMEN: No hepatosplenomegaly, normal bowel sounds, no guarding or rigidity. SPINE: No scoliosis or deformity SKIN: No rashes CENTRAL NERVOUS SYSTEM: No focal deficits, tone is normal in all 4 extremities. EXTREMITIES: There is no peripheral edema. No clubbing, no cyanosis. Peripheral pulses are intact. Results - Laboratory Findings CBC and BMP: 10/20/21 23:02 10/21/21 09:16 PT/INR, D-dimer PT 11.7 sec (9.0-12.0) 10/20/21 23:02 INR 1.1 (<1.2) 10/20/21 23:02 Abnormal lab findings: Abnormal Labs 10/20/21 10/20/21 10/20/21 23:02 23:02 23:02 RBC 3.78 L Hgb 8.8 L Hct 28.3 L MCV 75.0 L MCH 23.4 L RDW 21.8 H APTT 36.1 H Sodium 117 L* Chloride 89 L Carbon Dioxide 19 L BUN 8 L Creatinine 0.56 L Glucose 70 L Calcium 8.0 L Creatine Kinase 307 H CK-MB (CK-2) Troponin I Albumin 3.3 L Urine Ketones Coronavirus (PCR) 10/20/21 10/20/21 10/21/21 23:02 23:02 02:52 RBC Hgb Hct MCV MCH RDW APTT Sodium Chloride Carbon Dioxide BUN Creatinine Glucose Calcium Creatine Kinase CK-MB (CK-2) 6.5 H Troponin I 0.047 H* Albumin Urine Ketones 1+ H Coronavirus (PCR) Detected A 10/21/21 09:16 RBC Hgb Hct MCV MCH RDW APTT Sodium 125 L Chloride 97 L Carbon Dioxide 18 L BUN 7 L Creatinine 0.63 L Glucose 66 L Calcium 8.1 L Creatine Kinase CK-MB (CK-2) Troponin I Albumin Urine Ketones Coronavirus (PCR) - Diagnostic Findings Chest x-ray: image reviewed Assessment and Plan Plan: Hyponatremia, recurrent, secondary to hypovolemia in addition to 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 COVID 19 infection, no hypoxemia and altered indication for pneumonia, vaccinated with Moderna x1 in the past, asymptomatic Lung mass highly suspicious for bronchogenic carcinoma will eventually need outpatient follow-up, PET scan, possible repeat navigational bronchoscopy and/or CT-guided needle biopsy of the right upper lobe nodule, patient follows up with Dr. Garcia for his abnormal CT of the chest. The patient has enlarging right up per lobe pulmonary masses felt to be reflecting malignancy and this is noted on the most recent CAT scan of the chest done on 10/12/2021. Highly suspicious for primary bronchogenic cancer. Chronic anemia and history of chronic gastritis, history of colonic polyps. History of vocal cord paralysis Benign essential hypertension Tobacco dependence syndrome History of underlying COPD presently inactive History of alcoholism Chronic anorexia and weight loss. acute on chronic anemia, no bleed Non-anion gap metabolic acidosis Plan Nephrology consultation Complete a hyponatremia workup including urine osmolality and serum osmolality and urine sodium Monitor sodium level Fluid restrictions Check inflammatory markers regarding COVID 19 infection Lovenox 40 mg subcu for DVT prophylaxis May consider bronchoscopy at a later stage. The procedure may need to be postponed especially now that the patient is infected with COVID 19. We'll continue to follow
[2021-10-21] MEDS: CHOLECALCIFEROL 25 MCG (1000 IU) TABLET PO SCH (13:52)
[2021-10-21] MEDS: ZINC SULFATE 220 MG CAP PO SCH (13:52)
[2021-10-21] MEDS: ASCORBIC ACID 500 MG TAB PO SCH ×2 (13:52→21:22)
[2021-10-21] MEDS: ENOXAPARIN 40 MG/0.4 ML SYRINGE SQ SCH (13:52)
[2021-10-21] MEDS: THIAMINE 100 MG TAB PO SCH (13:52)
[2021-10-21] MEDS ORDERED: HEPARIN SODIUM,PORCINE/PF 5,000 UNIT/0.5 ML SYRINGE SQ SCH (16:00)
--- NOTE | 2021-10-21 16:30 | P.HPIM ---
History of Present Illness H&P Date: 10/21/21 Chief Complaint: Fall, Weakness 66-year-old male patient brought into ER; patient was found on the floor at home by family members. The patient reported he was feeling very weak and he was unable to get up. No focal neurological deficits. The patient's was recently discharged from the hospital 3 days ago after being admitted for altered electrolytes and severe hyponatremia. He was given 3% hypertonic saline and his sodium improved and the patient responded well on the care of nephrology. He had been eating well. His sodium was up to 131 at time of discharge. Denies having any nausea vomiting or abdominal pain. No chest pain. No new medications have been started. No diuretics at home. The patient had a lung mass that was highly suspicious for bronchogenic carcinoma noted on a CAT scan of the chest that was done on 10/12/2021. There is a high suspicion for bronchogenic cancer. The repeat chest x-ray during this current admission showed the same finding of a right upper lobe mass. Blood work reveals sodium was down 117 with a BUN of 8 and a creatinine of 0.56 and the patient's chloride level was 89 and a serum bicarb was 19. The white cell count was 6 with a hemoglobin of 8.8. His liver function tests were normal, CPK was 307, his COVID 19 testing was positive, troponin was 0.047 and blood sugar was at 76. Review of Systems REVIEW OF SYSTEMS: CONSTITUTIONAL: No fever, no malaise, no fatigue. HEENT: No recent visual problems or hearing problems. Denied any sore throat. CARDIOVASCULAR: No chest pain, orthopnea, PND, no palpitations, no syncope. PULMONARY: No shortness of breath, no cough, no hemoptysis. GASTROINTESTINAL: No diarrhea, no nausea, no vomiting, no abdominal pain. NEUROLOGICAL: No headaches, no weakness, no numbness. HEMATOLOGICAL: Denies any bleeding or petechiae. GENITOURINARY: Denies any burning micturition, frequency, or urgency. MUSCULOSKELETAL/RHEUMATOLOGICAL: Denies any joint pain, swelling, or any muscle pain. ENDOCRINE: Denies any polyuria or polydipsia. The rest of the 14-point review of systems is negative. Past Medical History Past Medical History: Cancer, GERD/Reflux, Hypertension Additional Past Medical History / Comment(s): paralyzed vocal cord, SKIN CANCER( FACE), mass in lungs History of Any Multi-Drug Resistant Organisms: None Reported Past Surgical History: Orthopedic Surgery Additional Past Surgical History / Comment(s): triple endoscopy, LT KNEE SCOPE, LT KNEE MENISCUS SX Past Anesthesia/Blood Transfusion Reactions: No Reported Reaction Additional Past Anesthesia/Blood Transfusion Reaction / Comment(s): . Past Psychological History: No Psychological Hx Reported Smoking Status: Current every day smoker Past Alcohol Use History: Daily Past Drug Use History: None Reported - Past Family History Father Family Medical History: Congestive Heart Failure (CHF), Myocardial Infarction (PA) Mother Family Medical History: No Reported History Additional Family Medical History / Comment(s): MOM IS IN GOOD HEALTH AT AGE 96 Medications and Allergies Home Medications Medication Instructions Recorded Confirmed Type Omeprazole Magnesium [PriLOSEC OTC] 20 mg PO DAILY PRN 06/14/21 10/20/21 History Acetaminophen Tab [Tylenol] 1,000 mg PO Q6H PRN 10/11/21 10/20/21 History Famotidine [Pepcid] 20 mg PO DAILY PRN 10/11/21 10/20/21 History diphenhydrAMINE [Benadryl] 25 - 50 mg PO HS PRN 10/11/21 10/20/21 History cloNIDine HCL [Catapres] 0.1 mg PO BID 10/12/21 10/20/21 History Docusate [Colace] 100 mg PO DAILY #30 capsule 10/16/21 10/20/21 Rx Ferrous Sulfate [Feosol] 325 mg PO DAILY #30 tab 10/16/21 10/20/21 Rx Thiamine [Vitamin B-1] 100 mg PO BID-W/MEALS #60 tab 10/16/21 10/20/21 Rx amLODIPine [Norvasc] 5 mg PO DAILY #30 tab 10/16/21 10/20/21 Rx Sodium Bicarbonate Tab 650 mg PO BID #60 tab 10/17/21 10/20/21 Rx Sodium Chloride Tab 1 gm PO DAILY #30 tab 10/17/21 10/20/21 Rx Allergies Allergy/AdvReac Type Severity Reaction Status Date / Time No Known Allergies Allergy Verified 10/11/21 17:16 Physical Exam Vitals: Vital Signs Temp Pulse Pulse Resp BP BP Pulse Ox 10/21/21 04:45 97.6 F 75 18 114/64 98 10/21/21 04:27 70 14 124/77 100 10/21/21 02:52 88 16 112/83 96 10/20/21 22:41 20 10/20/21 21:41 89 18 129/80 97 10/20/21 21:36 97.5 F L 62 20 129/80 97 Intake and Output 10/20/21 10/21/21 10/21/21 22:59 06:59 14:59 Other: Weight 60.328 kg 60.328 kg PHYSICAL EXAMINATION: GENERAL: The patient is alert and oriented x3, not in any acute distress. Well developed, well nourished. HEENT: Pupils are round and equally reacting to light. EOMI. No scleral icterus. No conjunctival pallor. Normocephalic, atraumatic. No pharyngeal erythema. No thyromegaly. CARDIOVASCULAR: S1 and S2 present. No murmurs, rubs, or gallops. PULMONARY: Chest is clear to auscultation, no wheezing or crackles. ABDOMEN: Soft, nontender, nondistended, normoactive bowel sounds. No palpable organomegaly. MUSCULOSKELETAL: No joint swelling or deformity. EXTREMITIES: No cyanosis, clubbing, or pedal edema. NEUROLOGICAL: Gross neurological examination did not reveal any focal deficits. SKIN: No rashes. Results CBC & Chem 7: 10/20/21 23:02 10/21/21 09:16 Labs: Abnormal Lab Results - Last 24 Hours (Table) 10/20/21 10/20/21 10/20/21 Range/Units 23:02 23:02 23:02 RBC 3.78 L (4.30-5.90) m/uL Hgb 8.8 L (13.0-17.5) gm/dL Hct 28.3 L (39.0-53.0) % MCV 75.0 L (80.0-100.0) fL MCH 23.4 L (25.0-35.0) pg RDW 21.8 H (11.5-15.5) % APTT 36.1 H (22.0-30.0) sec Sodium 117 L* (137-145) mmol/L Chloride 89 L (98-107) mmol/L Carbon Dioxide 19 L (22-30) mmol/L BUN 8 L (9-20) mg/dL Creatinine 0.56 L (0.66-1.25) mg/dL Glucose 70 L (74-99) mg/dL Calcium 8.0 L (8.4-10.2) mg/dL Creatine Kinase 307 H (55-170) U/L CK-MB (CK-2) (0.0-2.4) ng/mL Troponin I (0.000-0.034) ng/mL Albumin 3.3 L (3.5-5.0) g/dL Urine Ketones (Negative) Coronavirus (PCR) (Not Detectd) 10/20/21 10/20/21 10/21/21 Range/Units 23:02 23:02 02:52 RBC (4.30-5.90) m/uL Hgb (13.0-17.5) gm/dL Hct (39.0-53.0) % MCV (80.0-100.0) fL MCH (25.0-35.0) pg RDW (11.5-15.5) % APTT (22.0-30.0) sec Sodium (137-145) mmol/L Chloride (98-107) mmol/L Carbon Dioxide (22-30) mmol/L BUN (9-20) mg/dL Creatinine (0.66-1.25) mg/dL Glucose (74-99) mg/dL Calcium (8.4-10.2) mg/dL Creatine Kinase (55-170) U/L CK-MB (CK-2) 6.5 H (0.0-2.4) ng/mL Troponin I 0.047 H* (0.000-0.034) ng/mL Albumin (3.5-5.0) g/dL Urine Ketones 1+ H (Negative) Coronavirus (PCR) Detected A (Not Detectd) Thrombosis Risk Factor Assmnt - Choose All That Apply Any of the Below Risk Factors Present?: No Other Risk Factors: Yes Each Risk Factor Represents 2 Points: Age 61-74 years Other congenital or acquired thrombophilia - If yes, enter type in comment: No Thrombosis Risk Factor Assessment Total Risk Factor Score: 2 Thrombosis Risk Factor Assessment Level: Low Risk Assessment and Plan Assessment: 1. COVID-19 infection; patient remains asymptomatic; patient was vaccinated with moderna; patient has been placed on DVT prophylaxis with Lovenox and COVID- 19 vitamin cocktail 2. Hyponatremia; related to hypovolemia with component of SIADH likely from underlying lung mass - Patient placed on IV fluids in form of normal saline; nephrology on board and recommending to monitor sodium levels, urine sodium and osmolality with plans to use Samsca if no improvement in sodium levels with IV fluid; dietary consult f or increase oral intake of protein 3. Lung mass; suspicious for bronchogenic carcinoma; patient needs further outpatient follow-up with PET scan, bronchoscopy versus CT-guided needle biopsy 4. Hypertension; amlodipine 5 mg daily 5. History of COPD; not in exacerbation 6. Acute on chronic anemia; patient has history of chronic gastritis and colon polyps; hemoglobin is at baseline 7. Chronic anorexia and weight loss; likely related to lung mass; we will consult dietary service 8. History of alcoholism/tobacco abuse; counseling done; thiamine 100 mg daily DVT prophylaxis; SCDs/subcu Lovenox CODE STATUS; full code
[2021-10-22] MEDS: THIAMINE 100 MG TAB PO SCH ×2 (06:00→17:36)
[2021-10-22] MEDS: SODIUM BICARBONATE TAB 650 MG TAB PO SCH ×2 (08:07→19:41)
[2021-10-22] MEDS: CHOLECALCIFEROL 25 MCG (1000 IU) TABLET PO SCH (08:07)
[2021-10-22] MEDS: DOCUSATE 100 MG CAP PO SCH (08:07)
[2021-10-22] MEDS: ENOXAPARIN 40 MG/0.4 ML SYRINGE SQ SCH (08:08)
[2021-10-22] MEDS: ASCORBIC ACID 500 MG TAB PO SCH ×2 (08:08→19:41)
[2021-10-22] MEDS: FERROUS SULFATE 325 MG TAB PO SCH (08:08)
[2021-10-22] MEDS: amLODIPine 5 MG TAB PO SCH (08:08)
[2021-10-22] MEDS: ZINC SULFATE 220 MG CAP PO SCH (08:08)
[2021-10-22 08:58] LABS: Anisocytosis Moderate; Basophils % (A) 1 %; Eosinophils % (A) 1 %; HCT 29.3 % (39.0-53.0); HGB 8.9 gm/dL (13.0-17.5); Hypochromasia Marked; Lymphocytes # (A) 0.8 k/uL (1.0-4.8); Lymphocytes % (A) 21 %; MCH 23.9 pg (25.0-35.0); MCHC 30.2 g/dL (31.0-37.0); MCV 79.2 fL (80.0-100.0); Mean Platelet Volume 7.3; Microcytosis Slight; Monocytes # (A) 0.2 k/uL (0-1.0); Monocytes % (A) 5 %; Neutrophils # (A) 2.8 k/uL (1.3-7.7); Neutrophils % (A) 71 %; Platelet Count 268 k/uL (150-450); Poikilocytosis Slight; RDW 22.4 % (11.5-15.5)
[2021-10-22 09:16] LABS: African American GFR (CKD) >90 (>60 ml/min/1.73 sqM); Anion Gap 8 mmol/L; Blood Urea Nitrogen 9 mg/dL (9-20); C Reactive Protein 5.2 mg/dL (<1.0); Calcium 8.1 mg/dL (8.4-10.2); Carbon Dioxide 20 mmol/L (22-30); Chloride 99 mmol/L (98-107); Glucose 100 mg/dL (74-99); LDH 413 U/L (313-618); Non-African American GFR(CKD) >90 (>60 ml/min/1.73 sqM); Potassium 3.2 mmol/L (3.5-5.1); Sodium 127 mmol/L (137-145)
--- NOTE | 2021-10-22 10:11 | P.PN ---
Subjective Patient is seen for follow-up for hyponatremia. Patient was started on normal saline and received sodium chloride tablet his sodium had increased from 117-125 and therefore saline and sodium chloride tablets were discontinued. This morning sodium is up to 127. Patient states he is feeling much better. There is no ongoing nausea vomiting abdominal pain or diarrhea. Patient tested positive for coronary virus PCR Patient had received Samsca on his last admission for hyponatremia. Currently this appears to be hypovolemic and responding to saline and sodium chloride tab. Objective - Vital Signs Vital signs: Vital Signs Temp 98.3 F 10/21/21 23:15 Pulse 72 10/22/21 06:00 Resp 16 10/22/21 06:00 BP 126/82 10/22/21 06:00 Pulse Ox 95 10/22/21 06:00 FiO2 Intake & Output 10/21/21 10/22/21 10/22/21 18:59 06:59 18:59 Intake Total 240 Output Total 600 Balance 240 -600 Intake: Oral 240 Output: Urine 600 Other: Voiding Method Urinal # Voids 2 - Exam Awake, comfortable, not in any acute distress Examination of the heart S1 and S2 Exertion lungs bilateral breath sounds are heard Abdomen is soft nontender Examination of lower extremity shows no evidence of edema [employer] exam grossly intact - Labs CBC & Chem 7: 10/22/21 08:03 10/22/21 08:03 Labs: Abnormal Lab Results - Last 24 Hours (Table) 10/21/21 10/22/21 10/22/21 Range/Units 18:56 08:03 08:03 RBC 3.70 L (4.30-5.90) m/uL Hgb 8.9 L (13.0-17.5) gm/dL Hct 29.3 L (39.0-53.0) % MCV 79.2 L (80.0-100.0) fL MCH 23.9 L (25.0-35.0) pg MCHC 30.2 L (31.0-37.0) g/dL RDW 22.4 H (11.5-15.5) % Lymphocytes # 0.8 L (1.0-4.8) k/uL D-Dimer (<0.60) mg/L FEU Sodium 125 L 127 L (137-145) mmol/L Potassium 3.2 L (3.5-5.1) mmol/L Carbon Dioxide 20 L (22-30) mmol/L Glucose 100 H (74-99) mg/dL Calcium 8.1 L (8.4-10.2) mg/dL C-Reactive Protein 5.2 H (<1.0) mg/dL 10/22/21 Range/Units 08:03 RBC (4.30-5.90) m/uL Hgb (13.0-17.5) gm/dL Hct (39.0-53.0) % MCV (80.0-100.0) fL MCH (25.0-35.0) pg MCHC (31.0-37.0) g/dL RDW (11.5-15.5) % Lymphocytes # (1.0-4.8) k/uL D-Dimer 1.05 H (<0.60) mg/L FEU Sodium (137-145) mmol/L Potassium (3.5-5.1) mmol/L Carbon Dioxide (22-30) mmol/L Glucose (74-99) mg/dL Calcium (8.4-10.2) mg/dL C-Reactive Protein (<1.0) mg/dL Assessment and Plan Assessment: 1. Hyponatremia possibly hypovolemic however patient had an element of SIADH on his last hospitalization. He had responded well to Samsca. Currently patient is maintained on normal saline. Saline and sodium chloride tabs were discontinued yesterday since serum sodium had improved to 125 from 117. This morning level is up to 127. I will add saline at 70 mL an hour and repeat labs this afternoon. Continue with free water restriction for now 2. Metabolic acidosis currently maintained on sodium bicarb. No diarrhea per patient. Renal function is well-preserved 3. Anemia, rule out iron deficiency. No active bleeding noted. 4. Hypertension currently controlled maintained on Norvasc. 5. Positive coronavirus PCR, coarse interstitial markings noted on chest x-ray. Currently 95% on room air Plan: Resume saline at 70 mL an hour Check sodium this evening Maintain some degree of free water restriction Reorder urine osmolality and urine sodium, this has not yet been collected
--- NOTE | 2021-10-22 11:11 | P.PN ---
Subjective Progress Note Date: 10/22/21 66-year-old male patient brought into the emergency department as the patient was found on the floor at home by her sister. The exact downtime is not known as the patient was found on the floor by family members. The patient denied having any injuries. He stated that he was getting and feeling very weak and he was unable to get up. No focal neurological deficits. The patient's was recently discharged from the hospital 3 days ago after being admitted for altered electrolytes and severe hyponatremia. He was given 3% hypertonic saline and his sodium improved and the patient responded well on the care of nephrology. He had been eating well. His sodium was up to 131 at time of discharge. Denies having any nausea vomiting or abdominal pain. No chest pain. No new medications have been started. No diuretics at home. The patient was also seen by our services during the earlier hospitalization. The patient had a lung mass that was highly suspicious for bronchogenic carcinoma and we lashawn mmended outpatient follow-up with a PET scan and a navigational bronchoscopy for this patient. The patient an enlarging mass in the right upper lobe that was most likely consistent with bronchogenic carcinoma. This was noted on a CAT scan of the chest that was done on 10/12/2021. There is a high suspicion for bronchogenic cancer. The repeat chest x-ray during this current admission showed the same finding of a right upper lobe mass. The patient came back to the emergency afebrile, hemodynamically stable, his sodium was down 217 with a BUN of 8 and a creatinine of 0.56 and the patient's chloride level was 89 and a serum bicarb was 19. The white cell count was 6 with a hemoglobin of 8.8. His liver function tests were normal, CPK was 307, his COVID 19 testing was positive, troponin was 0.047 and blood sugar was at 76. The patient was accordingly admitted for further care. On today's evaluation of 10/22/2021, patient is feeling better. Sodium level is improved and it's up to 127. He still feeling weak and lower extremities. He is considered he may not be able to walk. We'll consult physical therapy accordingly. No nausea. No vomiting. No diarrhea. No emesis. No respiratory difficulties and the patient patient is still from the pulmonary standpoint. Noted the patient also has lung mass which may be contributing to a component of SIADH. Nephrology is on the case for now. The white cell cause of 4.7 with hemoglobin of 8.9 and a platelet count of 268. Sodium level is up to 127 with a potassium level of 3.2. Objective - Vital Signs Vital signs: Vital Signs Temp 98.3 F 10/21/21 23:15 Pulse 72 10/22/21 06:00 Resp 16 10/22/21 06:00 BP 126/82 10/22/21 06:00 Pulse Ox 95 10/22/21 06:00 FiO2 Intake & Output 10/21/21 10/22/21 10/22/21 18:59 06:59 18:59 Intake Total 240 Output Total 600 Balance 240 -600 Intake: Oral 240 Output: Urine 600 Other: Voiding Method Urinal # Voids 2 - Exam GENERAL EXAM: Alert, pleasant 66-year-old male patient, appears older than stated age, on room air, comfortable in no apparent distress. HEAD: Normocephalic. EYES: Normal reaction of pupils, equal size. NOSE: Clear with pink turbinates. THROAT: No erythema or exudates. NECK: No masses, no JVD. CHEST: No chest wall deformity. LUNGS: Equal air entry with no crackles, wheeze, rhonchi or dullness. CVS: S1 and S2 normal with no audible murmur, regular rhythm. ABDOMEN: No hepatosplenomegaly, normal bowel sounds, no guarding or rigidity. SPINE: No scoliosis or deformity SKIN: No rashes CENTRAL NERVOUS SYSTEM: No focal deficits, tone is normal in all 4 extremities. EXTREMITIES: There is no peripheral edema. No clubbing, no cyanosis. Peripheral pulses are intact. - Labs CBC & Chem 7: 10/22/21 08:03 10/22/21 08:03 Labs: Abnormal Lab Results - Last 24 Hours (Table) 10/21/21 10/21/21 10/22/21 Range/Units 09:16 18:56 08:03 RBC 3.70 L (4.30-5.90) m/uL Hgb 8.9 L (13.0-17.5) gm/dL Hct 29.3 L (39.0-53.0) % MCV 79.2 L (80.0-100.0) fL MCH 23.9 L (25.0-35.0) pg MCHC 30.2 L (31.0-37.0) g/dL RDW 22.4 H (11.5-15.5) % Lymphocytes # 0.8 L (1.0-4.8) k/uL Sodium 125 L 125 L (137-145) mmol/L Chloride 97 L (98-107) mmol/L Carbon Dioxide 18 L (22-30) mmol/L BUN 7 L (9-20) mg/dL Creatinine 0.63 L (0.66-1.25) mg/dL Glucose 66 L (74-99) mg/dL Calcium 8.1 L (8.4-10.2) mg/dL Assessment and Plan Plan: Hyponatremia, recurrent, secondary to hypovolemia in addition to 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 The sodium level is improving and the patient's sodium level is up to 127. The patient is on no IV fluids at this point in time. Overall, still feeling weak and may need physical therapy. COVID 19 infection, no hypoxemia and altered indication for pneumonia, vaccinated with Moderna x1 in the past, asymptomatic Lung mass highly suspicious for bronchogenic carcinoma will eventually need outpatient follow-up, PET scan, possible repeat navigational bronchoscopy and/or CT-guided needle biopsy of the right upper lobe nodule, patient follows up with Dr. Garcia for his abnormal CT of the chest. The patient has enlarging right upper lobe pulmonary masses felt to be reflecting malignancy and this is noted on the most recent CAT scan of the chest done on 10/12/2021. Highly suspicious for primary bronchogenic cancer. Chronic anemia and history of chronic gastritis, history of colonic polyps. History of vocal cord paralysis Benign essential hypertension Tobacco dependence syndrome History of underlying COPD presently inactive History of alcoholism Chronic anorexia and weight loss. acute on chronic anemia, no bleed Non-anion gap metabolic acidosis Plan Nephrology consultation is appreciated in the sodium level is improving Monitor sodium level No IV fluids for now and the patient was encouraged to take oral intake Check inflammatory markers regarding COVID 19 infection and this was checked yesterday and the LDH level was low at 450 with a CRP of 5.2 Lovenox 40 mg subcu for DVT prophylaxis May consider bronchoscopy at a later stage. The procedure may need to be postponed especially now that the patient is infected with COVID 19. We'll continue to follow
[2021-10-22] MEDS: SODIUM CHLORIDE 0.9% 1,000 ML IV SCH ×2 (11:52→22:39)
[2021-10-22] MEDS ORDERED: Potassium Replacement Protocol 1 EACH MISC MISCELLANE PRN (11:59)
[2021-10-22] MEDS: POTASSIUM CHLORIDE ER 20 MEQ TAB.ER PO SCH (13:03)
--- NOTE | 2021-10-22 17:54 | P.PN ---
Subjective Progress Note Date: 10/22/21 Principal diagnosis: Recurrent hyponatremia COVID 19 infection Lung mass highly suspicious for bronchogenic carcinoma Chronic anemia 66-year-old male patient brought into ER; patient was found on the floor at home by family members. The patient reported he was feeling very weak and he was unable to get up. No focal neurological deficits. The patient's was recently discharged from the hospital 3 days ago after being admitted for altered electrolytes and severe hyponatremia. He was given 3% hypertonic saline and his sodium improved and the patient responded well on the care of nephrology. He had been eating well. His sodium was up to 131 at time of discharge. Denies having any nausea vomiting or abdominal pain. No chest pain. No new m edications have been started. No diuretics at home. The patient had a lung mass that was highly suspicious for bronchogenic carcinoma noted on a CAT scan of the chest that was done on 10/12/2021. There is a high suspicion for bronchogenic cancer. The repeat chest x-ray during this current admission showed the same finding of a right upper lobe mass. Blood work reveals sodium was down 117 with a BUN of 8 and a creatinine of 0.56 and the patient's chloride level was 89 and a serum bicarb was 19. The white cell count was 6 with a hemoglobin of 8.8. His liver function tests were normal, CPK was 307, his COVID 19 testing was positive, troponin was 0.047 and blood sugar was at 76. 10/22/2021, patient is feeling better. Sodium level is improved and it's up to 127; white cell cause of 4.7 with hemoglobin of 8.9 and a platelet count of 268. Sodium level is up to 127 with a potassium level of 3.2.. PT/OT has been consulted to evaluate for debility and discharge planning Objective - Vital Signs Vital signs: Vital Signs Temp 98.3 F 10/22/21 11:54 Pulse 72 10/22/21 11:54 Resp 16 10/22/21 11:54 BP 122/70 10/22/21 11:54 Pulse Ox 98 10/22/21 11:54 FiO2 Intake & Output 10/21/21 10/22/21 10/22/21 18:59 06:59 18:59 Intake Total 240 150 Output Total 600 110 Balance 240 -600 40 Intake: Intake, IV Titration 150 Amount Sodium Chloride 0.9% 1, 150 000 ml @ 75 mls/hr IV . [id number] [facility] Rx#:[id number] Oral 240 Output: Urine 600 110 Other: Voiding Method Urinal # Voids 2 - Exam GENERAL: The patient is alert and oriented x3, not in any acute distress. Well developed, well nourished. HEENT: Pupils are round and equally reacting to light. EOMI. No scleral icterus. No conjunctival pallor. Normocephalic, atraumatic. No pharyngeal erythema. No thyromegaly. CARDIOVASCULAR: S1 and S2 present. No murmurs, rubs, or gallops. PULMONARY: Chest is clear to auscultation, no wheezing or crackles. ABDOMEN: Soft, nontender, nondistended, normoactive bowel sounds. No palpable organomegaly. MUSCULOSKELETAL: No joint swelling or deformity. EXTREMITIES: No cyanosis, clubbing, or pedal edema. NEUROLOGICAL: Gross neurological examination did not reveal any focal deficits. SKIN: No rashes. - Labs CBC & Chem 7: 10/22/21 08:03 10/22/21 11:02 Labs: Abnormal Lab Results - Last 24 Hours (Table) 10/21/21 10/22/21 10/22/21 Range/Units 18:56 08:03 08:03 RBC 3.70 L (4.30-5.90) m/uL Hgb 8.9 L (13.0-17.5) gm/dL Hct 29.3 L (39.0-53.0) % MCV 79.2 L (80.0-100.0) fL MCH 23.9 L (25.0-35.0) pg MCHC 30.2 L (31.0-37.0) g/dL RDW 22.4 H (11.5-15.5) % Lymphocytes # 0.8 L (1.0-4.8) k/uL D-Dimer (<0.60) mg/L FEU Sodium 125 L (137-145) mmol/L Potassium (3.5-5.1) mmol/L Carbon Dioxide (22-30) mmol/L Glucose (74-99) mg/dL Calcium (8.4-10.2) mg/dL C-Reactive Protein (<1.0) mg/dL Procalcitonin 0.58 H (0.02-0.09) ng/mL 10/22/21 10/22/21 10/22/21 Range/Units 08:03 08:03 11:02 RBC (4.30-5.90) m/uL Hgb (13.0-17.5) gm/dL Hct (39.0-53.0) % MCV (80.0-100.0) fL MCH (25.0-35.0) pg MCHC (31.0-37.0) g/dL RDW (11.5-15.5) % Lymphocytes # (1.0-4.8) k/uL D-Dimer 1.05 H (<0.60) mg/L FEU Sodium 127 L 126 L (137-145) mmol/L Potassium 3.2 L (3.5-5.1) mmol/L Carbon Dioxide 20 L (22-30) mmol/L Glucose 100 H (74-99) mg/dL Calcium 8.1 L (8.4-10.2) mg/dL C-Reactive Protein 5.2 H (<1.0) mg/dL Procalcitonin (0.02-0.09) ng/mL Assessment and Plan Assessment: 1. COVID-19 infection; patient remains asymptomatic; patient was vaccinated with moderna; patient has been placed on DVT prophylaxis with Lovenox and COVID- 19 vitamin cocktail 2. Hyponatremia; related to hypovolemia with component of SIADH likely from underlying lung mass - Patient placed on IV fluids in form of normal saline; nephrology on board and recommending to monitor sodium levels, urine sodium and osmolality with plans to use Samsca if no improvement in sodium levels with IV fluid; dietary consult for increase oral intake of protein 3. Lung mass; suspicious for bronchogenic carcinoma; patient needs further outpatient follow-up with PET scan, bronchoscopy versus CT-guided needle biopsy 4. Hypertension; amlodipine 5 mg daily 5. History of COPD; not in exacerbation 6. Acute on chronic anemia; patient has history of chronic gastritis and colon polyps; hemoglobin is at baseline 7. Chronic anorexia and weight loss; likely related to lung mass; we will consult dietary service 8. History of alcoholism/tobacco abuse; counseling done; thiamine 100 mg daily DVT prophylaxis; SCDs/subcu Lovenox CODE STATUS; full code
[2021-10-22] MEDS: PANTOPRAZOLE 40 MG TABLET PO PRN (18:41)
[2021-10-23] MEDS: THIAMINE 100 MG TAB PO SCH ×2 (05:53→18:05)
[2021-10-23 08:33] LABS: African American GFR (CKD) >90 (>60 ml/min/1.73 sqM); Anion Gap 8 mmol/L; Blood Urea Nitrogen 4 mg/dL (9-20); Carbon Dioxide 18 mmol/L (22-30); Chloride 102 mmol/L (98-107); Glucose 87 mg/dL (74-99); Non-African American GFR(CKD) >90 (>60 ml/min/1.73 sqM); Potassium 4.1 mmol/L (3.5-5.1); Sodium 128 mmol/L (137-145)
[2021-10-23] MEDS: PANTOPRAZOLE 40 MG TABLET PO PRN (08:59)
[2021-10-23] MEDS: CHOLECALCIFEROL 25 MCG (1000 IU) TABLET PO SCH (08:59)
[2021-10-23] MEDS: ENOXAPARIN 40 MG/0.4 ML SYRINGE SQ SCH (08:59)
[2021-10-23] MEDS: DOCUSATE 100 MG CAP PO SCH (08:59)
[2021-10-23] MEDS: amLODIPine 5 MG TAB PO SCH (08:59)
[2021-10-23] MEDS: FERROUS SULFATE 325 MG TAB PO SCH (08:59)
[2021-10-23] MEDS: SODIUM BICARBONATE TAB 650 MG TAB PO SCH ×2 (08:59→20:35)
[2021-10-23] MEDS: ZINC SULFATE 220 MG CAP PO SCH (08:59)
[2021-10-23] MEDS: ASCORBIC ACID 500 MG TAB PO SCH ×2 (09:07→20:35)
[2021-10-23] MEDS: SODIUM CHLORIDE 0.9% 1,000 ML IV SCH (09:07)
--- NOTE | 2021-10-23 10:03 | P.PN ---
Subjective Patient is seen for follow-up for hyponatremia. Patient was started on normal saline and received sodium chloride tablet his sodium had increased from 117-125 and therefore saline and sodium chloride tablets were discontinued. This morning sodium is up to 127. Patient states he is feeling much better. There is no ongoing nausea vomiting abdominal pain or diarrhea. Patient tested positive for coronary virus PCR Patient had received Samsca on his last admission for hyponatremia. Currently this appears to be hypovolemic and responding to saline and sodium chloride tab. Objective - Vital Signs Vital signs: Vital Signs Temp 98.2 F 10/23/21 08:47 Pulse 79 10/23/21 08:47 Resp 16 10/23/21 08:47 BP 124/63 10/23/21 08:47 Pulse Ox 97 10/23/21 08:47 FiO2 Intake & Output 10/22/21 10/23/21 10/23/21 18:59 06:59 18:59 Intake Total 475 240 128 Output Total 210 300 Balance 265 -60 128 Intake: IV 10 Invasive Line 1 10 Intake, IV Titration 475 Amount Sodium Chloride 0.9% 1, 475 000 ml @ 75 mls/hr IV . [id number] ON LICENSE OF [facility] Rx#:[id number] Oral 240 118 Output: Urine 210 300 Other: Voiding Method Urinal # Voids 1 # Bowel Movements 1 1 - Exam Awake, comfortable, not in any acute distress Abdomen is soft nontender Examination of lower extremity shows no evidence of edema GUN TESTER exam grossly intact - Labs CBC & Chem 7: 10/22/21 08:03 10/23/21 07:38 Labs: Abnormal Lab Results - Last 24 Hours (Table) 10/22/21 10/22/21 10/22/21 Range/Units 08:03 11:02 12:00 Sodium 126 L (137-145) mmol/L Carbon Dioxide (22-30) mmol/L BUN (9-20) mg/dL Creatinine (0.66-1.25) mg/dL Calcium (8.4-10.2) mg/dL Procalcitonin 0.58 H (0.02-0.09) ng/mL Ur Random Sodium 35 L (40-220) mmol/L 10/22/21 10/23/21 Range/Units 18:47 07:38 Sodium 127 L 128 L (137-145) mmol/L Carbon Dioxide 18 L (22-30) mmol/L BUN 4 L (9-20) mg/dL Creatinine 0.57 L (0.66-1.25) mg/dL Calcium 8.0 L (8.4-10.2) mg/dL Procalcitonin (0.02-0.09) ng/mL Ur Random Sodium (40-220) mmol/L Assessment and Plan Assessment: 1. Hyponatremia possibly hypovolemic however patient had an element of SIADH on his last hospitalization. He had responded well to Samsca at that time Currently patient is maintained on normal saline. Sodium up to 128 today 2. Metabolic acidosis currently maintained on sodium bicarb. No diarrhea per patient. Renal function is well-preserved 3. Anemia, rule out iron deficiency. No active bleeding noted. 4. Hypertension currently controlled maintained on Norvasc. 5. Positive coronavirus PCR, coarse interstitial markings noted on chest x-ray. Currently 95% on room air Plan: Add sodium chloride tab DC IV fluids Encourage increased oral intake Repeat labs in a.m.
--- NOTE | 2021-10-23 10:36 | P.PN ---
Subjective 66-year-old male patient brought into ER; patient was found on the floor at home by family members. The patient reported he was feeling very weak and he was unable to get up. No focal neurological deficits. The patient's was recently discharged from the hospital 3 days ago after being admitted for altered electrolytes and severe hyponatremia. He was given 3% hypertonic saline and his sodium improved and the patient responded well on the care of nephrology. He had been eating well. His sodium was up to 131 at time of discharge. Denies h aving any nausea vomiting or abdominal pain. No chest pain. No new medications have been started. No diuretics at home. The patient had a lung mass that was highly suspicious for bronchogenic carcinoma noted on a CAT scan of the chest that was done on 10/12/2021. There is a high suspicion for bronchogenic cancer. The repeat chest x-ray during this current admission showed the same finding of a right upper lobe mass. Blood work reveals sodium was down 117 with a BUN of 8 and a creatinine of 0.56 and the patient's chloride level was 89 and a serum bicarb was 19. The white cell count was 6 with a hemoglobin of 8.8. His liver function tests were normal, CPK was 307, his COVID 19 testing was positive, troponin was 0.047 and blood sugar was at 76. 10/22/2021, patient is feeling better. Sodium level is improved and it's up to 127; white cell cause of 4.7 with hemoglobin of 8.9 and a platelet count of 268. Sodium level is up to 127 with a potassium level of 3.2.. PT/OT has been consulted to evaluate for debility and discharge planning 10/23/2021, this is the first day I started taking care of the patient This is a pleasant 66 years old male who presents initially because of altered mental status secondary to hypovolemia hyponatremia and he was treated with IV fluids and currently improved. Also has evidence of Covid infection and right upper lobe lung mass for which patient is aware of. Patient today is awake and alert but he has some dyspnea especially with talking. He is hemodynamically stable. Improved 128. Fluids were stopped and he was kept on sodium tablets. Patient told me he is aware about his lung mass and that he needs to get a biopsy for its and he told me he will follow-up with Dr. Cobb for this purpose. Informed he needs to follow up with steaming machine operator Dr. Love he agrees and willing to do so as he told Objective - Vital Signs Vital signs: Vital Signs Temp 98.2 F 10/23/21 08:47 Pulse 79 10/23/21 08:47 Resp 16 10/23/21 08:47 BP 124/63 10/23/21 08:47 Pulse Ox 97 10/23/21 08:47 FiO2 Intake & Output 10/22/21 10/23/21 10/23/21 18:59 06:59 18:59 Intake Total 475 240 128 Output Total 210 300 Balance 265 -60 128 Intake: IV 10 Invasive Line 1 10 Intake, IV Titration 475 Amount Sodium Chloride 0.9% 1, 475 000 ml @ 75 mls/hr IV . [id number] [facility] Rx#:[id number] Oral 240 118 Output: Urine 210 300 Other: Voiding Method Urinal # Voids 1 # Bowel Movements 1 1 - Exam GENERAL: The patient is alert and oriented x3, not in any acute distress. Well developed, well nourished. HEENT: Pupils are round and equally reacting to light. EOMI. No scleral icterus. No conjunctival pallor. Normocephalic, atraumatic. No pharyngeal erythema. No thyromegaly. CARDIOVASCULAR: S1 and S2 present. No murmurs, rubs, or gallops. PULMONARY: Chest is clear to auscultation, no wheezing or crackles. ABDOMEN: Soft, nontender, nondistended, normoactive bowel sounds. No palpable organomegaly. MUSCULOSKELETAL: No joint swelling or deformity. EXTREMITIES: No cyanosis, clubbing, or pedal edema. NEUROLOGICAL: Gross neurological examination did not reveal any focal deficits. SKIN: No rashes. no petechiae. - Labs CBC & Chem 7: 10/22/21 08:03 10/23/21 07:38 Labs: Abnormal Lab Results - Last 24 Hours (Table) 10/22/21 10/22/21 10/22/21 Range/Units 08:03 11:02 12:00 Sodium 126 L (137-145) mmol/L Carbon Dioxide (22-30) mmol/L BUN (9-20) mg/dL Creatinine (0.66-1.25) mg/dL Calcium (8.4-10.2) mg/dL Procalcitonin 0.58 H (0.02-0.09) ng/mL Ur Random Sodium 35 L (40-220) mmol/L 10/22/21 10/23/21 Range/Units 18:47 07:38 Sodium 127 L 128 L (137-145) mmol/L Carbon Dioxide 18 L (22-30) mmol/L BUN 4 L (9-20) mg/dL Creatinine 0.57 L (0.66-1.25) mg/dL Calcium 8.0 L (8.4-10.2) mg/dL Procalcitonin (0.02-0.09) ng/mL Ur Random Sodium (40-220) mmol/L Assessment and Plan Assessment: Metabolic encephalopathy secondary to hypovolemic hyponatremia, improved Hypovolemic hyponatremia Right upper lobe lung mass, suspicious for cancer, patient aware and willing to follow up as an outpatient Comment infection with no pneumonia or hypoxia History of old stroke with right parietal and temporal infarct seen on the CT of the brain. Plan: This is a pleasant 66 years old male who presents with hyponatremia, lung mass. Covid infection. Current patient currently is off IV fluids and kept on sodium chloride tablets. Sodium improved yesterday 126 up to 128 today. Contact Lens Fitter and pulmonology team on the case. Keep monitoring sodium. Patient will need to follow up with steaming machine operator Dr. Key after discharge, patient informed and he agrees. Labs and medication were reviewed.. Continue same treatment. Continue with symptomatic treatment. Resume home medication. Monitor lytes and vitals. DVT and GI prophylaxis. Further recommendationsas per clinical course of the patient DVT prophylaxis: Subcutaneous Lovenox GI Prophylaxis: Pepcid and px PT/OT: Pending Prognosis is guarded
[2021-10-23] MEDS: SODIUM CHLORIDE TAB 1 GM TAB PO SCH ×2 (10:37→20:35)
--- NOTE | 2021-10-23 11:12 | P.PN ---
Subjective Progress Note Date: 10/23/21 66-year-old male patient brought into the emergency department as the patient was found on the floor at home by her sister. The exact downtime is not known as the patient was found on the floor by family members. The patient denied having any injuries. He stated that he was getting and feeling very weak and he was unable to get up. No focal neurological deficits. The patient's was recently discharged from the hospital 3 days ago after being admitted for altered electrolytes and severe hyponatremia. He was given 3% hypertonic saline and his sodium improved and the patient responded well on the care of nephrology. He had been eating well. His sodium was up to 131 at time of discharge. Denies having any nausea vomiting or abdominal pain. No chest pain. No new medications have been started. No diuretics at home. The patient was also seen by our services during the earlier hospitalization. The patient had a lung mass that was highly suspicious for bronchogenic carcinoma and we lashawn mmended outpatient follow-up with a PET scan and a navigational bronchoscopy for this patient. The patient an enlarging mass in the right upper lobe that was most likely consistent with bronchogenic carcinoma. This was noted on a CAT scan of the chest that was done on 10/12/2021. There is a high suspicion for bronchogenic cancer. The repeat chest x-ray during this current admission showed the same finding of a right upper lobe mass. The patient came back to the emergency afebrile, hemodynamically stable, his sodium was down 217 with a BUN of 8 and a creatinine of 0.56 and the patient's chloride level was 89 and a serum bicarb was 19. The white cell count was 6 with a hemoglobin of 8.8. His liver function tests were normal, CPK was 307, his COVID 19 testing was positive, troponin was 0.047 and blood sugar was at 76. The patient was accordingly admitted for further care. On today's evaluation of 10/22/2021, patient is feeling better. Sodium level is improved and it's up to 127. He still feeling weak and lower extremities. He is considered he may not be able to walk. We'll consult physical therapy accordingly. No nausea. No vomiting. No diarrhea. No emesis. No respiratory difficulties and the patient patient is still from the pulmonary standpoint. Noted the patient also has lung mass which may be contributing to a component of SIADH. Nephrology is on the case for now. The white cell cause of 4.7 with hemoglobin of 8.9 and a platelet count of 268. Sodium level is up to 127 with a potassium level of 3.2. 10/23/2021, the patient's sodium level is up to 128. Serum bicarb is at 18. Creatinine is at 0.57. He is awake and alert. He has chronic hoarseness. Blood work is not suggestive of SIADH. The lung mass is present and is highly suspicious for malignancy and needs to be biopsied a later stage. The patient has COVID 19 infection he had a symptomatically from the pulmonary standpoint. No fever. No chills and altered mentation. Resting comfortably in bed. Tolerating his diet. Objective - Vital Signs Vital signs: Vital Signs Temp 98.2 F 10/23/21 08:47 Pulse 79 10/23/21 08:47 Resp 16 10/23/21 08:47 BP 124/63 10/23/21 08:47 Pulse Ox 97 10/23/21 08:47 FiO2 Intake & Output 10/22/21 10/23/21 10/23/21 18:59 06:59 18:59 Intake Total 475 240 128 Output Total 210 300 Balance 265 -60 128 Intake: IV 10 Invasive Line 1 10 Intake, IV Titration 475 Amount Sodium Chloride 0.9% 1, 475 000 ml @ 75 mls/hr IV . [id number] [facility] Rx#:[id number] Oral 240 118 Output: Urine 210 300 Other: Voiding Method Urinal # Voids 1 # Bowel Movements 1 - Exam GENERAL EXAM: Alert, pleasant 66-year-old male patient, appears older than stated age, on room air, comfortable in no apparent distress. HEAD: Normocephalic. EYES: Normal reaction of pupils, equal size. NOSE: Clear with pink turbinates. THROAT: No erythema or exudates. NECK: No masses, no JVD. CHEST: No chest wall deformity. LUNGS: Equal air entry with no crackles, wheeze, rhonchi or dullness. CVS: S1 and S2 normal with no audible murmur, regular rhythm. ABDOMEN: No hepatosplenomegaly, normal bowel sounds, no guarding or rigidity. SPINE: No scoliosis or deformity SKIN: No rashes CENTRAL NERVOUS SYSTEM: No focal deficits, tone is normal in all 4 extremities. EXTREMITIES: There is no peripheral edema. No clubbing, no cyanosis. Peripheral pulses are intact. - Labs CBC & Chem 7: 10/22/21 08:03 10/23/21 07:38 Labs: Abnormal Lab Results - Last 24 Hours (Table) 10/22/21 10/22/21 10/22/21 Range/Units 08:03 11:02 12:00 Sodium 126 L (137-145) mmol/L Carbon Dioxide (22-30) mmol/L BUN (9-20) mg/dL Creatinine (0.66-1.25) mg/dL Calcium (8.4-10.2) mg/dL Procalcitonin 0.58 H (0.02-0.09) ng/mL Ur Random Sodium 35 L (40-220) mmol/L 10/22/21 10/23/21 Range/Units 18:47 07:38 Sodium 127 L 128 L (137-145) mmol/L Carbon Dioxide 18 L (22-30) mmol/L BUN 4 L (9-20) mg/dL Creatinine 0.57 L (0.66-1.25) mg/dL Calcium 8.0 L (8.4-10.2) mg/dL Procalcitonin (0.02-0.09) ng/mL Ur Random Sodium (40-220) mmol/L Assessment and Plan Plan: Hyponatremia, recurrent, secondary to hypovolemia without 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 The sodium level is improving and the patient's sodium level is up to 12. The patient is on no IV fluids at this point in time. Overall, still feeling weak and may need physical therapy. The patient was having generalized weakness which is improved. COVID 19 infection, no hypoxemia and altered indication for pneumonia, vaccinated with Moderna x1 in the past, asymptomatic Lung mass highly suspicious for bronchogenic carcinoma will eventually need outpatient follow-up, PET scan, possible repeat navigational bronchoscopy and/or CT-guided needle biopsy of the right upper lobe nodule, patient follows up with Dr. Garcia for his abnormal CT of the chest. The patient has enlarging right upper lobe pulmonary masses felt to be reflecting malignancy and this is noted on the most recent CAT scan of the chest done on 10/12/2021. Highly suspicious for primary bronchogenic cancer. Chronic anemia and history of chronic gastritis, history of colonic polyps. History of vocal cord paralysis Benign essential hypertension Tobacco dependence syndrome History of underlying COPD presently inactive History of alcoholism Chronic anorexia and weight loss. acute on chronic anemia, no bleed Non-anion gap metabolic acidosis Plan Nephrology consultation is appreciated in the sodium level is improving Monitor sodium level, sodium level is up to 128. No IV fluids for now and the patient was encouraged to take oral intake Based on the urinary osmolality and sodium, no indication for an underlying SIADH Inflammatory markers regarding COVID 19 infection and this was checked yesterday and the LDH level was low at 450 with a CRP of 5.2 Asymptomatic from the pulmonary standpoint terms of COVID Lovenox 40 mg subcu for DVT prophylaxis May consider bronchoscopy at a later stage. The procedure may need to be postponed especially now that the patient is infected with COVID 19. We'll continue to follow
[2021-10-24] MEDS: THIAMINE 100 MG TAB PO SCH ×2 (06:24→17:07)
[2021-10-24] MEDS: CHOLECALCIFEROL 25 MCG (1000 IU) TABLET PO SCH (09:28)
[2021-10-24] MEDS: SODIUM BICARBONATE TAB 650 MG TAB PO SCH ×2 (09:28→20:01)
[2021-10-24] MEDS: ZINC SULFATE 220 MG CAP PO SCH (09:28)
[2021-10-24] MEDS: ASCORBIC ACID 500 MG TAB PO SCH ×2 (09:28→20:01)
[2021-10-24] MEDS: amLODIPine 5 MG TAB PO SCH (09:28)
[2021-10-24] MEDS: SODIUM CHLORIDE TAB 1 GM TAB PO SCH ×2 (09:28→20:01)
[2021-10-24] MEDS: ENOXAPARIN 40 MG/0.4 ML SYRINGE SQ SCH (09:28)
[2021-10-24] MEDS: FERROUS SULFATE 325 MG TAB PO SCH (09:28)
[2021-10-24] MEDS: DOCUSATE 100 MG CAP PO SCH (09:28)
--- NOTE | 2021-10-24 09:51 | XR ---
EXAMINATION TYPE: XR chest 1V portable DATE OF EXAM: 10/24/2021 Comparison: 10/20/2021 Clinical History: 66-year-old male Covid, SOB Findings: Heart limits of normal in size. Atherosclerotic arch calcifications. Hyperinflation. Patchy bilatera l peripheral opacities are similar. Underlying nodules on the right are redemonstrated measuring up t o 3.0 cm. No pleural effusion. Impression: Relatively similar exam with right-sided nodules and background COPD. There is some mild patchy perip heral opacity also noted that could reflect COVID pneumonia.
--- NOTE | 2021-10-24 11:00 | P.PN ---
Subjective 66-year-old male patient brought into ER; patient was found on the floor at home by family members. The patient reported he was feeling very weak and he was unable to get up. No focal neurological deficits. The patient's was recently discharged from the hospital 3 days ago after being admitted for altered electrolytes and severe hyponatremia. He was given 3% hypertonic saline and his sodium improved and the patient responded well on the care of nephrology. He had been eating well. His sodium was up to 131 at time of discharge. Denies h aving any nausea vomiting or abdominal pain. No chest pain. No new medications have been started. No diuretics at home. The patient had a lung mass that was highly suspicious for bronchogenic carcinoma noted on a CAT scan of the chest that was done on 10/12/2021. There is a high suspicion for bronchogenic cancer. The repeat chest x-ray during this current admission showed the same finding of a right upper lobe mass. Blood work reveals sodium was down 117 with a BUN of 8 and a creatinine of 0.56 and the patient's chloride level was 89 and a serum bicarb was 19. The white cell count was 6 with a hemoglobin of 8.8. His liver function tests were normal, CPK was 307, his COVID 19 testing was positive, troponin was 0.047 and blood sugar was at 76. 10/22/2021, patient is feeling better. Sodium level is improved and it's up to 127; white cell cause of 4.7 with hemoglobin of 8.9 and a platelet count of 268. Sodium level is up to 127 with a potassium level of 3.2.. PT/OT has been consulted to evaluate for debility and discharge planning 10/23/2021, this is the first day I started taking care of the patient This is a pleasant 66 years old male who presents initially because of altered mental status secondary to hypovolemia hyponatremia and he was treated with IV fluids and currently improved. Also has evidence of Covid infection and right upper lobe lung mass for which patient is aware of. Patient today is awake and alert but he has some dyspnea especially with talking. He is hemodynamically stable. Improved 128. Fluids were stopped and he was kept on sodium tablets. Patient told me he is aware about his lung mass and that he needs to get a biopsy for its and he told me he will follow-up with Dr. Cobb for this purpose. Informed he needs to follow up with civil project engineer Dr. Love he agrees and willing to do so as he told 10/25/2011 Patient still short of breath when talking, he denies chest pain or significant coughing. He is saturating 94-97% on room air, mildly tachypneic while at rest. Chest x-ray Relatively similar exam with right-sided nodules and background COPD. There is some mild patchy peripheral opacity also noted that could reflect COVID pneumonia. Labs from today are still pending. He remains on sodium tablets. He is off IV fluids. Repeat pro-calcitonin is pending Objective - Vital Signs Vital signs: Vital Signs Temp 98.3 F 10/24/21 04:00 Pulse 66 10/24/21 04:00 Resp 16 10/24/21 04:00 BP 154/72 10/24/21 04:00 Pulse Ox 94 L 10/24/21 04:00 FiO2 Intake & Output 10/23/21 10/24/21 10/24/21 18:59 06:59 18:59 Intake Total 256 240 Output Total 250 450 Balance 6 -450 240 Intake: IV 20 Invasive Line 1 20 Oral 236 240 Output: Urine 250 450 Other: Voiding Method Urinal # Voids 2 # Bowel Movements 1 1 - Exam GENERAL: The patient is alert and oriented x3, not in any acute distress. Well developed, well nourished. HEENT: Pupils are round and equally reacting to light. EOMI. No scleral icterus. No conjunctival pallor. Normocephalic, atraumatic. No pharyngeal erythema. No thyromegaly. CARDIOVASCULAR: S1 and S2 present. No murmurs, rubs, or gallops. PULMONARY: Chest is clear to auscultation, no wheezing or crackles. ABDOMEN: Soft, nontender, nondistended, normoactive bowel sounds. No palpable or ganomegaly. MUSCULOSKELETAL: No joint swelling or deformity. EXTREMITIES: No cyanosis, clubbing, or pedal edema. NEUROLOGICAL: Gross neurological examination did not reveal any focal deficits. SKIN: No rashes. no petechiae. - Labs CBC & Chem 7: 10/22/21 08:03 10/23/21 07:38 Assessment and Plan Assessment: Metabolic encephalopathy secondary to hypovolemic hyponatremia, improved Hypovolemic hyponatremia Right upper lobe lung mass, suspicious for cancer, patient aware and willing to follow up as an outpatient Comment infection with no pneumonia or hypoxia History of old stroke with right parietal and temporal infarct seen on the CT of the brain. Plan: This is a pleasant 66 years old male who presents with hyponatremia, lung mass. Covid infection. Current patient currently is off IV fluids and kept on sodium chloride tablets. Flow Machine Operator and pulmonology team on the case. Keep monitoring sodium. Follow-upcalcitonin Patient will need to follow-up civil project engineer Dr. Gibbs upon discharge as well as thoracic surgeon Dr. Cobb and he agrees Labs and medication were reviewed.. Continue same treatment. Continue with symptomatic treatment. Resume home medication. Monitor lytes and vitals. DVT and GI prophylaxis. Further recommendationsas per clinical course of the pa moe DVT prophylaxis: Subcutaneous Lovenox GI Prophylaxis: Pepcid and px PT/OT: Pending Prognosis is guarded
[2021-10-24 11:19] LABS: African American GFR (CKD) >90 (>60 ml/min/1.73 sqM); Anion Gap 8 mmol/L; Blood Urea Nitrogen 6 mg/dL (9-20); Calcium 8.3 mg/dL (8.4-10.2); Carbon Dioxide 21 mmol/L (22-30); Chloride 101 mmol/L (98-107); Glucose 91 mg/dL (74-99); Non-African American GFR(CKD) >90 (>60 ml/min/1.73 sqM); Sodium 130 mmol/L (137-145)
--- NOTE | 2021-10-24 11:20 | P.PN ---
Subjective Patient is seen for follow-up for hyponatremia. Patient was started on normal saline and received sodium chloride tablet his sodium had increased from 117-125 and therefore saline and sodium chloride tablets were discontinued. This morning sodium is up to 127. Patient states he is feeling much better. There is no ongoing nausea vomiting abdominal pain or diarrhea. Patient tested positive for coronary virus PCR Patient had received Samsca on his last admission for hyponatremia. Currently this appears to be hypovolemic and responding to saline and sodium chloride tab. Sodium was 128 yesterday. Labs pending from today Patient is mildly short of breath today. O2 sats 96% on room air Objective - Vital Signs Vital signs: Vital Signs Temp 98.2 F 10/24/21 08:00 Pulse 72 10/24/21 08:00 Resp 18 10/24/21 08:00 BP 133/75 10/24/21 08:00 Pulse Ox 96 10/24/21 08:00 FiO2 Intake & Output 10/23/21 10/24/21 10/24/21 18:59 06:59 18:59 Intake Total 256 240 Output Total 250 450 Balance 6 -450 240 Intake: IV 20 Invasive Line 1 20 Oral 236 240 Output: Urine 250 450 Other: Voiding Method Urinal Urinal # Voids 2 # Bowel Movements 1 1 - Exam Awake, comfortable, not in any acute distress Examination of the heart S1 and S2 Examination of the lungs bilateral breath sounds are heard Abdomen is soft nontender Examination of lower extremity shows no evidence of edema [employer]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 Hyponatremia possibly hypovolemic however patient had an element of SIADH on his last hospitalization. He had responded well to Samsca at that time. Status post normal saline this admission and maintained on sodium chloride tabs currently. Sodium up to 128 yesterday. 2. Metabolic acidosis currently maintained on sodium bicarb. No diarrhea per patient. Renal function is well-preserved 3. Anemia, rule out iron deficiency. No active bleeding noted. 4. Hypertension currently controlled maintained on Norvasc. 5. Positive coronavirus PCR, coarse interstitial markings noted on chest x-ray. Currently 95% on room air Plan: Continue with sodium chloride tabs Follow-up on sodium from today
[2021-10-24 11:28] LABS: Anisocytosis Moderate; Basophils # (A) 0.1 k/uL (0-0.2); Basophils % (A) 2 %; Eosinophils % (A) 0 %; HGB 9.4 gm/dL (13.0-17.5); Hypochromasia Marked; Lymphocytes # (A) 1.2 k/uL (1.0-4.8); Lymphocytes % (A) 29 %; MCH 23.5 pg (25.0-35.0); MCHC 29.3 g/dL (31.0-37.0); MCV 80.2 fL (80.0-100.0); Mean Platelet Volume 7.9; Microcytosis Slight; Monocytes # (A) 0.3 k/uL (0-1.0); Monocytes % (A) 7 %; Neutrophils # (A) 2.6 k/uL (1.3-7.7); Neutrophils % (A) 61 %; Platelet Count 287 k/uL (150-450); Poikilocytosis Slight; RDW 22.9 % (11.5-15.5); WBC 4.3 k/uL (3.8-10.6)
--- NOTE | 2021-10-24 13:40 | P.PN ---
Subjective Progress Note Date: 10/24/21 Principal diagnosis: Lung mass. 66-year-old male patient brought into the emergency department as the patient was found on the floor at home by her sister. The exact downtime is not known as the patient was found on the floor by family members. The patient denied having any injuries. He stated that he was getting and feeling very weak and he was unable to get up. No focal neurological deficits. The patient's was recently discharged from the hospital 3 days ago after being admitted for altered electrolytes and severe hyponatremia. He was given 3% hypertonic saline and his sodium improved and the patient responded well on the care of nephrology. He had been eating well. His sodium was up to 131 at time of discharge. Denies having any nausea vomiting or abdominal pain. No chest pain. No new medications have been started. No diuretics at home. The patient was also seen by our services during the earlier hospitalization. The patient had a lung mass that was highly suspicious for bronchogenic carcinoma and we recommended outpatient follow-up with a PET scan and a navigational bronchoscopy for this patient. The patient an enlarging mass in the right upper lobe that was most likely consistent with bronchogenic carcinoma. This was noted on a CAT scan of the chest that was done on 10/12/2021. There is a high suspicion for bronchogenic cancer. The repeat chest x-ray during this current admission showed the same finding of a right upper lobe mass. The patient came back to the emergency afebrile, hemodynamically stable, his sodium was down 217 with a BUN of 8 and a creatinine of 0.56 and the patient's chloride level was 89 and a serum bicarb was 19. The white cell count was 6 with a hemoglobin of 8.8. His liver function tests were normal, CPK was 307, his COVID 19 testing was positive, troponin was 0.047 and blood sugar was at 76. The patient was accordingly admitted for further care. On today's evaluation of 10/22/2021, patient is feeling better. Sodium level is improved and it's up to 127. He still feeling weak and lower extremities. He is considered he may not be able to walk. We'll consult physical therapy accordingly. No nausea. No vomiting. No diarrhea. No emesis. No respiratory difficulties and the patient patient is still from the pulmonary standpoint. Noted the patient also has lung mass which may be contributing to a component of SIADH. Nephrology is on the case for now. The white cell cause of 4.7 with hemoglobin of 8.9 and a platelet count of 268. Sodium level is up to 127 with a potassium level of 3.2. 10/23/2021, the patient's sodium level is up to 128. Serum bicarb is at 18. Creatinine is at 0.57. He is awake and alert. He has chronic hoarseness. Blood work is not suggestive of SIADH. The lung mass is present and is highly suspicious for malignancy and needs to be biopsied a later stage. The patient has COVID 19 infection he had a symptomatically from the pulmonary standpoint. No fever. No chills and altered mentation. Resting comfortably in bed. Tolerating his diet. Progress note dated 10/24/2021. This is a 66-year-old male that I haven't seen for some time, who has a suspicious lesion in his right lung. He likely has lung cancer. He had a previous navigational procedure which was nondiagnostic. The patient was to come back and see me before, but never did. He was admitted with a diagnosis of hyponatremia, and he may have SIADH although blood work is not diagnostic. We did make an appointment to see me back in the office. The patient has coronavirus infection, without coronavirus pneumonia. White count 4.3, hemoglobin 9.4, hematocrit 32, and platelet count 287,000. Sodium 1:30, potassium 4, chlorides 101, CO2 21, BUN 6, creatinine 0.59. Chest x-ray again shows a right lung nodule measuring about 3 cm. Objective - Vital Signs Vital signs: Vital Signs Temp 98.1 F 10/24/21 12:00 Pulse 68 10/24/21 12:00 Resp 18 10/24/21 12:00 BP 142/83 10/24/21 12:00 Pulse Ox 94 L 10/24/21 12:00 FiO2 Intake & Output 10/23/21 10/24/21 10/24/21 18:59 06:59 18:59 Intake Total 256 480 Output Total 250 450 Balance 6 -450 480 Intake: IV 20 Invasive Line 1 20 Oral 236 480 Output: Urine 250 450 Other: Voiding Method Urinal Urinal # Voids 2 # Bowel Movements 1 1 - Exam No acute distress, oriented 3. Room air saturation 94%. HEENT examination is grossly unremarkable. Neck supple. Full range of motion. No adenopathy thyromegaly or neck vein distention. Cardiovascular examination reveals regular rhythm rate. S1-S2 normal. No S3 or S4. No discernible murmur noted. Heart rate 68 bpm. Lungs reveal mostly clear breath sounds. Scattered rhonchi noted. No wheezes or crackles. Breath sounds equal bilaterally. Abdomen soft bowel sounds are heard. No masses or tenderness. Extremities are intact. No cyanosis clubbing or edema. Skin is without rash or lesion. Neurologic examination is brief but nonfocal. - Labs CBC & Chem 7: 10/24/21 10:17 10/24/21 10:17 Labs: Abnormal Lab Results - Last 24 Hours (Table) 10/24/21 10/24/21 Range/Units 10:17 10:17 RBC 4.00 L (4.30-5.90) m/uL Hgb 9.4 L (13.0-17.5) gm/dL Hct 32.0 L (39.0-53.0) % MCH 23.5 L (25.0-35.0) pg MCHC 29.3 L (31.0-37.0) g/dL RDW 22.9 H (11.5-15.5) % Sodium 130 L (137-145) mmol/L Carbon Dioxide 21 L (22-30) mmol/L BUN 6 L (9-20) mg/dL Creatinine 0.59 L (0.66-1.25) mg/dL Calcium 8.3 L (8.4-10.2) mg/dL Assessment and Plan Assessment: Hyponatremia, secondary to hypovolemia with possible SIADH. Coronavirus infection, without pneumonia. Right lung mass, status post navigational bronchoscopy, nondiagnostic. The patient never returned to the office for follow-up. Chronic anemia. History of vocal cord paralysis. Hypertension. Tobacco dependence syndrome. COPD. Alcoholism. Anorexia/cachexia syndrome. Plan: Plan dated 10/24/2021. The patient is given an appointment to see me in the office. He will have follow-up. Sodium is up to 130. The patient's doing well otherwise. No additional recommendations are made. The patient will need a procedure to diagnose what appears to be lung cancer. Additional recommendations suggestions are forthcoming. Prognosis is guarded. The patient is a no code patient. He does agree to see me in the office for follow-up. Time with Patient: Less than 30
[2021-10-25] MEDS: THIAMINE 100 MG TAB PO SCH ×2 (06:08→18:03)
--- NOTE | 2021-10-25 09:34 | CDI ---
Documentation Clarification Form Date: 10/26/2021 09:18:40 AM From: Olivia Mckay CCS, CCDS Admit Date: 10/21/2021 01:08:00 AM Patient Name: Wicho Ryan Visit Number: [id number] Discharge Date: ATTENTION: The Clinical Documentation Specialists (CDI) and [facility] Coding Staff appreciate your assistance in clarifying documentation. Please respond to the clarification below the line at the bottom and electronically sign. The CDI & [facility] Coding staff will review the response and follow-up if needed. Please note: Queries are made part of the Legal Health Record. If you have any questions, please contact the author of this message via ITS. Dr. Franklin E. Sheet: Anemia is documented in the following documents in the patient's chart: 10/21 H/P: Acute on Chronic Anemia with history of chronic gastritis and colon polyps, Hemoglobin is at baseline. 10/21 Nephrology Consult and subsequent Progress Notes: Anemia, rule out iron deficiency. 10/21 Pulmonary Consult: Acute on Chronic Anemia, no bleed. Additional clarification of the patient's anemia is requested. History/Risk Factors per the 10/21 H/P: Skin Cancer, GERD, Hypertension, Paralyzed vocal cord, Current Smoker. Clinical indicators: Presented to the ED on 10/20 after a fall and weakness. Admit with Hyponatremia, Weakness, Altered Mental Status and positive COVID 19. Per the 10/21 H/P: COVID 19, Hyponatremia, related to Hypovolemia with component of SIADH likely from underlying lung mass. Lung mass suspicious for bronchogenic carcinoma. Acute on chronic Anemia. Chronic anorexia and weight loss likely related to lung mass. LAB: 10/20 Hemoglobin: 8.8. 10/22: 8.9. 10/24: 9.4 10/20 Hematocrit: 28.3. 10/22: 29.3. 10/24: 32.0 Treatment 10/20 & 10/21: Blood Glucose monitoring, Droplet precautions, Urine Osmolality, O2 2Lnc, IV Na Cl 500 mls @ 999 mls/hr q1H, po Tylenol 650 mg q6H, Benadryl, Pepcid, Protonix, Norvasc, Colace, Feosol, Vit B1 & Na Bicarb. Na Chloride, Vit C, Vit D3, Orazinc; Lovenox sq, Heparin sq, IV Na CL 1,000 mls @ 150 mls/hr q6H. Is there an additional diagnosis and/or clinical significance related to the above lab result/information: [ ] Chronic blood loss anemia [ ] Iron deficiency anemia [ ] Hemolytic anemia [ ] Drug induced anemia [ ] Anemia due to malignancy [ ] Nutritional anemia [ ] Anemia of chronic disease [ ] Unable to determine [ ] Other, please specify (Template Last Revised: June 2020) Unable to determine MTDD
[2021-10-25 10:12] LABS: Anisocytosis Moderate; Basophils % (A) 1 %; Eosinophils % (A) 1 %; HCT 35.3 % (39.0-53.0); HGB 10.5 gm/dL (13.0-17.5); Hypochromasia Marked; Lymphocytes # (A) 1.3 k/uL (1.0-4.8); Lymphocytes % (A) 31 %; MCHC 29.6 g/dL (31.0-37.0); MCV 81.1 fL (80.0-100.0); Mean Platelet Volume 8.2; Microcytosis Slight; Monocytes # (A) 0.3 k/uL (0-1.0); Monocytes % (A) 6 %; Neutrophils # (A) 2.5 k/uL (1.3-7.7); Neutrophils % (A) 58 %; Platelet Count 314 k/uL (150-450); Poikilocytosis Slight; RBC 4.35 m/uL (4.30-5.90); RDW 23.7 % (11.5-15.5); WBC 4.3 k/uL (3.8-10.6)
[2021-10-25 10:31] LABS: African American GFR (CKD) >90 (>60 ml/min/1.73 sqM); Anion Gap 5 mmol/L; Blood Urea Nitrogen 5 mg/dL (9-20); Calcium 8.5 mg/dL (8.4-10.2); Carbon Dioxide 25 mmol/L (22-30); Chloride 101 mmol/L (98-107); Glucose 110 mg/dL (74-99); Non-African American GFR(CKD) >90 (>60 ml/min/1.73 sqM); Potassium 4.2 mmol/L (3.5-5.1); Sodium 131 mmol/L (137-145)
[2021-10-25] MEDS: ZINC SULFATE 220 MG CAP PO SCH (10:52)
[2021-10-25] MEDS: DOCUSATE 100 MG CAP PO SCH (10:52)
[2021-10-25] MEDS: amLODIPine 5 MG TAB PO SCH (10:52)
[2021-10-25] MEDS: SODIUM BICARBONATE TAB 650 MG TAB PO SCH ×2 (10:52→20:53)
[2021-10-25] MEDS: SODIUM CHLORIDE TAB 1 GM TAB PO SCH (10:53)
[2021-10-25] MEDS: FERROUS SULFATE 325 MG TAB PO SCH (10:53)
[2021-10-25] MEDS: ASCORBIC ACID 500 MG TAB PO SCH ×2 (10:53→20:53)
[2021-10-25] MEDS: CHOLECALCIFEROL 25 MCG (1000 IU) TABLET PO SCH (10:53)
[2021-10-25] MEDS: ENOXAPARIN 40 MG/0.4 ML SYRINGE SQ SCH (10:53)
--- NOTE | 2021-10-25 11:07 | P.PN ---
Subjective Progress Note Date: 10/25/21 Principal diagnosis: Lung mass. 66-year-old male patient brought into the emergency department as the patient was found on the floor at home by her sister. The exact downtime is not known as the patient was found on the floor by family members. The patient denied having any injuries. He stated that he was getting and feeling very weak and he was unable to get up. No focal neurological deficits. The patient's was recently discharged from the hospital 3 days ago after being admitted for altered electrolytes and severe hyponatremia. He was given 3% hypertonic saline and his sodium improved and the patient responded well on the care of nephrology. He had been eating well. His sodium was up to 131 at time of discharge. Denies having any nausea vomiting or abdominal pain. No chest pain. No new medications have been started. No diuretics at home. The patient was also seen by our services during the earlier hospitalization. The patient had a lung mass that was highly suspicious for bronchogenic carcinoma and we recommended outpatient follow-up with a PET scan and a navigational bronchoscopy for this patient. The patient an enlarging mass in the right upper lobe that was most likely consistent with bronchogenic carcinoma. This was noted on a CAT scan of the chest that was done on 10/12/2021. There is a high suspicion for bronchogenic cancer. The repeat chest x-ray during this current admission showed the same finding of a right upper lobe mass. The patient came back to the emergency afebrile, hemodynamically stable, his sodium was down 217 with a BUN of 8 and a creatinine of 0.56 and the patient's chloride level was 89 and a serum bicarb was 19. The white cell count was 6 with a hemoglobin of 8.8. His liver function tests were normal, CPK was 307, his COVID 19 testing was positive, troponin was 0.047 and blood sugar was at 76. The patient was accordingly admitted for further care. On today's evaluation of 10/22/2021, patient is feeling better. Sodium level is improved and it's up to 127. He still feeling weak and lower extremities. He is considered he may not be able to walk. We'll consult physical therapy accordingly. No nausea. No vomiting. No diarrhea. No emesis. No respiratory difficulties and the patient patient is still from the pulmonary standpoint. Noted the patient also has lung mass which may be contributing to a component of SIADH. Nephrology is on the case for now. The white cell cause of 4.7 with hemoglobin of 8.9 and a platelet count of 268. Sodium level is up to 127 with a potassium level of 3.2. 10/23/2021, the patient's sodium level is up to 128. Serum bicarb is at 18. Creatinine is at 0.57. He is awake and alert. He has chronic hoarseness. Blood work is not suggestive of SIADH. The lung mass is present and is highly suspicious for malignancy and needs to be biopsied a later stage. The patient has COVID 19 infection he had a symptomatically from the pulmonary standpoint. No fever. No chills and altered mentation. Resting comfortably in bed. Tolerating his diet. Progress note dated 10/24/2021. This is a 66-year-old male that I haven't seen for some time, who has a suspicious lesion in his right lung. He likely has lung cancer. He had a previous navigational procedure which was nondiagnostic. The patient was to come back and see me before, but never did. He was admitted with a diagnosis of hyponatremia, and he may have SIADH although blood work is not diagnostic. We did make an appointment to see me back in the office. The patient has coronavirus infection, without coronavirus pneumonia. White count 4.3, hemoglobin 9.4, hematocrit 32, and platelet count 287,000. Sodium 1:30, potassium 4, chlorides 101, CO2 21, BUN 6, creatinine 0.59. Chest x-ray again shows a right lung nodule measuring about 3 cm. Progress note dated 10/25/2021. 66-year-old male with a history of hyponatremia. The patient has a suspicious lesion in the right lung, and likely has lung cancer. The patient had a previous navigational procedure, which was nondiagnostic. The patient never came back to see me in follow-up. The patient was admitted with hyponatremia. The most recent sodium is up to 130. The patient will see me in the office, and a decision was made at that time, in regards to another diagnostic procedure. White count 4.3, hemoglobin 10.5, hematocrit 35.3, with a platelet count of 314,000. Sodium is up to 131, potassium 4.2, chlorides 101, CO2 25, BUN 5, with a creatinine 0.61. Yesterday's chest x-ray was reviewed. Objective - Vital Signs Vital signs: Vital Signs Temp 98 F 10/24/21 20:00 Pulse 65 10/25/21 04:00 Resp 18 10/25/21 04:00 BP 164/83 10/25/21 04:00 Pulse Ox 95 10/25/21 04:00 FiO2 Intake & Output 10/24/21 10/25/21 10/25/21 18:59 06:59 18:59 Intake Total 480 240 Output Total 350 Balance 130 240 Intake: Oral 480 240 Output: Urine 350 Other: Voiding Method Urinal # Voids 2 1 # Bowel Movements 1 1 - Exam No acute distress, oriented 3. Room air saturation 95%. HEENT examination is grossly unremarkable. Neck supple. Full range of motion. No adenopathy thyromegaly or neck vein distention. Cardiovascular examination reveals regular rhythm rate. S1-S2 normal. No S3 or S4. No discernible murmur noted. Heart rate 65 bpm. Lungs reveal mostly clear breath sounds. Scattered rhonchi noted. No wheezes or crackles. Breath sounds equal bilaterally. Abdomen soft bowel sounds are heard. No masses or tenderness. Extremities are intact. No cyanosis clubbing or edema. Skin is without rash or lesion. Neurologic examination is brief but nonfocal. - Labs CBC & Chem 7: 10/25/21 08:30 10/25/21 08:30 Labs: Abnormal Lab Results - Last 24 Hours (Table) 10/24/21 10/24/21 10/24/21 Range/Units 10:17 10:17 10:17 RBC 4.00 L (4.30-5.90) m/uL Hgb 9.4 L (13.0-17.5) gm/dL Hct 32.0 L (39.0-53.0) % MCH 23.5 L (25.0-35.0) pg MCHC 29.3 L (31.0-37.0) g/dL RDW 22.9 H (11.5-15.5) % Sodium 130 L (137-145) mmol/L Carbon Dioxide 21 L (22-30) mmol/L BUN 6 L (9-20) mg/dL Creatinine 0.59 L (0.66-1.25) mg/dL Glucose (74-99) mg/dL Calcium 8.3 L (8.4-10.2) mg/dL Procalcitonin 0.23 H (0.02-0.09) ng/mL 10/25/21 10/25/21 Range/Units 08:30 08:30 RBC (4.30-5.90) m/uL Hgb 10.5 L (13.0-17.5) gm/dL Hct 35.3 L (39.0-53.0) % MCH 24.0 L (25.0-35.0) pg MCHC 29.6 L (31.0-37.0) g/dL RDW 23.7 H (11.5-15.5) % Sodium 131 L (137-145) mmol/L Carbon Dioxide (22-30) mmol/L BUN 5 L (9-20) mg/dL Creatinine 0.61 L (0.66-1.25) mg/dL Glucose 110 H (74-99) mg/dL Calcium (8.4-10.2) mg/dL Procalcitonin (0.02-0.09) ng/mL Assessment and Plan Assessment: Hyponatremia, secondary to hypovolemia with possible SIADH, much improved. Coronavirus infection, without pneumonia. Right lung mass, status post navigational bronchoscopy, nondiagnostic. The patient never returned to the office for follow-up. Chronic anemia. History of vocal cord paralysis. Hypertension. Tobacco dependence syndrome. COPD. Alcoholism. Anorexia/cachexia syndrome. Plan: Plan dated 10/24/2021. The patient is given an appointment to see me in the office. He will have follow-up. Sodium is up to 130. The patient's doing well otherwise. No additional recommendations are made. The patient will need a procedure to diagnose what appears to be lung cancer. Additional recommendations suggestions are forthcoming. Prognosis is guarded. The patient is a no code patient. He does agree to see me in the office for follow-up. Plan dated 10/25/2021. The patient's sodium is up to 131. The patient will likely be discharged in the near future. The patient will follow-up with me in the office. We will discuss another procedure. Additional recommendations and suggestions are forthcoming. Labs, x-rays, medications are reviewed. The patient will be seen only as needed moving forward. The patient is a DO NOT RESUSCITATE patient. Prognosis is certainly guarded. Time with Patient: Less than 30
--- NOTE | 2021-10-25 15:36 | PN ---
PROGRESS NOTE Patient is seen for followup for hyponatremia which was mostly hypovolemic this admission and improved with normal saline. Currently patient is maintained on sodium chloride tabs. Sodium has improved to 131. Patient has underlying COVID pneumonia. He denies significant shortness of breath. O2 sats 93% on room air. PHYSICAL EXAMINATION: On examination today, blood pressure 136/78, heart rate 78 per minute. He is afebrile. Examination of the heart S1, S2. Examination of the lungs, bilateral breath sounds are heard. Abdomen is soft, nontender. Examination of lower extremities shows no significant edema. GAS FITTER exam grossly intact. LAB: Show hemoglobin 10.5. Sodium 131 today, serum creatinine 0.6. ASSESSMENT: 1. Hyponatremia, currently maintained on sodium chloride tabs, initially hypovolemic and improved. Tolerating oral intake. 2. Metabolic acidosis maintained on sodium bicarb. 3. COVID 19 pneumonia, being followed by Pulmonary. PLAN: Continue with sodium chloride tabs, decrease to 1 gram daily. Repeat labs in a.m. MMODL / IJN: [id number] /
--- NOTE | 2021-10-25 18:21 | P.PN ---
Subjective 66-year-old male patient brought into ER; patient was found on the floor at home by family members. The patient reported he was feeling very weak and he was unable to get up. No focal neurological deficits. The patient's was recently discharged from the hospital 3 days ago after being admitted for altered electrolytes and severe hyponatremia. He was given 3% hypertonic saline and his sodium improved and the patient responded well on the care of nephrology. He had been eating well. His sodium was up to 131 at time of discharge. Denies h aving any nausea vomiting or abdominal pain. No chest pain. No new medications have been started. No diuretics at home. The patient had a lung mass that was highly suspicious for bronchogenic carcinoma noted on a CAT scan of the chest that was done on 10/12/2021. There is a high suspicion for bronchogenic cancer. The repeat chest x-ray during this current admission showed the same finding of a right upper lobe mass. Blood work reveals sodium was down 117 with a BUN of 8 and a creatinine of 0.56 and the patient's chloride level was 89 and a serum bicarb was 19. The white cell count was 6 with a hemoglobin of 8.8. His liver function tests were normal, CPK was 307, his COVID 19 testing was positive, troponin was 0.047 and blood sugar was at 76. 10/22/2021, patient is feeling better. Sodium level is improved and it's up to 127; white cell cause of 4.7 with hemoglobin of 8.9 and a platelet count of 268. Sodium level is up to 127 with a potassium level of 3.2.. PT/OT has been consulted to evaluate for debility and discharge planning 10/23/2021, this is the first day I started taking care of the patient This is a pleasant 66 years old male who presents initially because of altered mental status secondary to hypovolemia hyponatremia and he was treated with IV fluids and currently improved. Also has evidence of Covid infection and right upper lobe lung mass for which patient is aware of. Patient today is awake and alert but he has some dyspnea especially with talking. He is hemodynamically stable. Improved 128. Fluids were stopped and he was kept on sodium tablets. Patient told me he is aware about his lung mass and that he needs to get a biopsy for its and he told me he will follow-up with Dr. Cobb for this purpose. Informed he needs to follow up with tobacco classer Dr. Garciaand he agrees and willing to do so as he told 10/25/2011 Patient still short of breath when talking, he denies chest pain or significant coughing. He is saturating 94-97% on room air, mildly tachypneic while at rest. Chest x-ray Relatively similar exam with right-sided nodules and background COPD. There is some mild patchy peripheral opacity also noted that could reflect COVID pneumonia. Labs from today are still pending. He remains on sodium tablets. He is off IV fluids. Repeat pro-calcitonin is pending 10/25/2021 Patient breathing status is a stable, is still slightly tachypneic which is expected with his lung mass. I discussed the case with pulmonary team and they cleared him for discharge today. Both pulmonary team and the patient are aware with his appointment with Dr. Garcia on for addressing his lung mass. Patient is aware it may be cancerous. Sodium improved to 131 sodium tablets lower to once a day. Patient medically stable for discharge, he was cleared by both nephrology and pulmonary team ECF is recommended for him and patient agreeable pending placement. Sodium in the morning Objective - Vital Signs Vital signs: Vital Signs Temp 98 F 10/24/21 20:00 Pulse 65 10/25/21 04:00 Resp 18 10/25/21 04:00 BP 164/83 10/25/21 04:00 Pulse Ox 95 10/25/21 04:00 FiO2 Intake & Output 10/24/21 10/25/21 10/25/21 18:59 06:59 18:59 Intake Total 480 477 Output Total 350 Balance 130 477 Intake: Oral 480 477 Output: Urine 350 Other: Voiding Method Urinal # Voids 2 1 # Bowel Movements 1 1 - Exam GENERAL: The patient is alert and oriented x3, not in any acute distress. Well developed, well nourished. HEENT: Pupils are round and equally reacting to light. EOMI. No scleral icterus. No conjunctival pallor. Normocephalic, atraumatic. No pharyngeal erythema. No thyromegaly. CARDIOVASCULAR: S1 and S2 present. No murmurs, rubs, or gallops. PULMONARY: Chest is clear to auscultation, no wheezing or crackles. ABDOMEN: Soft, nontender, nondistended, normoactive bowel sounds. No palpable organomegaly. MUSCULOSKELETAL: No joint swelling or deformity. EXTREMITIES: No cyanosis, clubbing, or pedal edema. NEUROLOGICAL: Gross neurological examination did not reveal any focal deficits. SKIN: No rashes. no petechiae. - Labs CBC & Chem 7: 10/25/21 08:30 10/25/21 08:30 Labs: Abnormal Lab Results - Last 24 Hours (Table) 10/24/21 10/25/21 10/25/21 Range/Units 10:17 08:30 08:30 Hgb 10.5 L (13.0-17.5) gm/dL Hct 35.3 L (39.0-53.0) % MCH 24.0 L (25.0-35.0) pg MCHC 29.6 L (31.0-37.0) g/dL RDW 23.7 H (11.5-15.5) % Sodium 131 L (137-145) mmol/L BUN 5 L (9-20) mg/dL Creatinine 0.61 L (0.66-1.25) mg/dL Glucose 110 H (74-99) mg/dL Procalcitonin 0.23 H (0.02-0.09) ng/mL Assessment and Plan Assessment: Metabolic encephalopathy secondary to hypovolemic hyponatremia, improved Hypovolemic hyponatremia Right upper lobe lung mass, suspicious for cancer, patient aware and willing to follow up as an outpatient Comment infection with no pneumonia or hypoxia History of old stroke with right parietal and temporal infarct seen on the CT of the brain. Plan: This is a pleasant 66 years old male who presents with hyponatremia, lung mass. Covid infection. Current patient currently is off IV fluids and kept on sodium chloride tablets. Content Production Specialist and pulmonology team on the case. Keep monitoring sodium. Follow-upcalcitonin Patient will need to follow-up tobacco classer Dr. Gibbs upon discharge as well as thoracic surgeon Dr. Cobb and he agrees Labs and medication were reviewed.. Continue same treatment. Continue with symptomatic treatment. Resume home medication. Monitor lytes and vitals. DVT and GI prophylaxis. Further recommendationsas per clinical course of the patient DVT prophylaxis: Subcutaneous Lovenox GI Prophylaxis: Pepcid and px PT/OT: Pending Prognosis is guarded
[2021-10-26] MEDS: ENOXAPARIN 40 MG/0.4 ML SYRINGE SQ SCH (07:41)
[2021-10-26] MEDS: DOCUSATE 100 MG CAP PO SCH (07:41)
[2021-10-26] MEDS: amLODIPine 5 MG TAB PO SCH (07:42)
[2021-10-26] MEDS: FERROUS SULFATE 325 MG TAB PO SCH (07:42)
[2021-10-26] MEDS: SODIUM BICARBONATE TAB 650 MG TAB PO SCH ×2 (07:42→20:46)
[2021-10-26] MEDS: ASCORBIC ACID 500 MG TAB PO SCH ×2 (07:42→20:46)
[2021-10-26] MEDS: ZINC SULFATE 220 MG CAP PO SCH (07:42)
[2021-10-26] MEDS: THIAMINE 100 MG TAB PO SCH ×2 (07:42→16:30)
[2021-10-26] MEDS: CHOLECALCIFEROL 25 MCG (1000 IU) TABLET PO SCH (07:42)
[2021-10-26] MEDS: SODIUM CHLORIDE TAB 1 GM TAB PO SCH (07:43)
[2021-10-26 10:59] LABS: Anion Gap 9.2 mmol/L (10.00-18.00); Carbon Dioxide 19.8 mmol/L (20.0-27.5); Potassium 3.6 mmol/L (3.5-5.5)
--- NOTE | 2021-10-26 11:29 | P.PN ---
Subjective Patient is seen for follow-up for hyponatremia. Patient was started on normal saline and received sodium chloride tablet his sodium had increased from 117-125 and therefore saline and sodium chloride tablets were discontinued. This morning sodium is up to 127. Patient states he is feeling much better. There is no ongoing nausea vomiting abdominal pain or diarrhea. Patient tested positive for coronary virus PCR Sodium had improved to 131 Currently maintained on sodium chloride tabs and sodium bicarb for metabolic acidosis. Sodium chloride Was decreased to 1 g daily Serum sodium is 129 today No significant nausea vomiting abdominal pain or diarrhea. Objective - Vital Signs Vital signs: Vital Signs Temp 98.2 F 10/26/21 09:54 Pulse 71 10/26/21 09:54 Resp 20 10/26/21 09:54 BP 147/76 10/26/21 09:54 Pulse Ox 95 10/26/21 09:54 FiO2 Intake & Output 10/25/21 10/26/21 10/26/21 18:59 06:59 18:59 Intake Total 717 500 0 Output Total 250 Balance 467 500 0 Intake: Oral 717 500 0 Output: Urine 250 Other: Voiding Method Urinal Diaper # Voids 1 1 # Bowel Movements 1 - Exam Awake, comfortable, not in any acute distress Examination of the heart S1 and S2 Examination of the lungs bilateral breath sounds are heard Abdomen is soft nontender Examination of lower extremity shows no evidence of edema TECHNICAL PRODUCT MANAGER exam grossly intact - Labs CBC & Chem 7: 10/25/21 08:30 10/26/21 07:07 Labs: Abnormal Lab Results - Last 24 Hours (Table) 10/26/21 Range/Units 07:07 Sodium 129 L (135-145) mmol/L Carbon Dioxide 19.8 L (20.0-27.5) mmol/L Anion Gap 9.20 L (10.00-18.00) mmol/L Assessment and Plan Assessment: 1. Hyponatremia possibly hypovolemic however patient had an element of SIADH on his last hospitalization. He had responded well to Samsca at that time. Status post normal saline this admission and maintained on sodium chloride tabs currently. Sodium was up to 131 and down to 129 today. 2. Metabolic acidosis currently maintained on sodium bicarb. No diarrhea per patient. Renal function is well-preserved 3. Anemia, rule out iron deficiency. No active bleeding noted. 4. Hypertension currently controlled maintained on Norvasc. 5. Positive coronavirus PCR, coarse interstitial markings noted on chest x-ray. Currently 95% on room air Plan: Continue with sodium chloride tab and sodium bicarb Tolvaptan 1 today
--- NOTE | 2021-10-26 11:41 | P.PN ---
Subjective Progress Note Date: 10/26/21 Principal diagnosis: Falls, weakness 66-year-old male patient brought into the emergency department as the patient was found on the floor at home by her sister. The exact downtime is not known as the patient was found on the floor by family members. The patient denied having any injuries. He stated that he was getting and feeling very weak and he was unable to get up. No focal neurological deficits. The patient's was recently discharged from the hospital 3 days ago after being admitted for altered electrolytes and severe hyponatremia. He was given 3% hypertonic saline and his sodium improved and the patient responded well on the care of nephrology. He had been eating well. His sodium was up to 131 at time of discharge. Denies having any nausea vomiting or abdominal pain. No chest pain. No new medications have been started. No diuretics at home. The patient was also seen by our services during the earlier hospitalization. The patient had a lung mass that was highly suspicious for bronchogenic carcinoma and we recommended outpatient follow-up with a PET scan and a navigational bronchoscopy for this patient. The patient an enlarging mass in the right upper lobe that was most likely consistent with bronchogenic carcinoma. This was noted on a CAT scan of the chest that was done on 10/12/2021. There is a high suspicion for bronchogenic cancer. The repeat chest x-ray during this current admission showed the same finding of a right upper lobe mass. The patient came back to the emergency afebrile, hemodynamically stable, his sodium was down 217 with a BUN of 8 and a creatinine of 0.56 and the patient's chloride level was 89 and a serum bicarb was 19. The white cell count was 6 with a hemoglobin of 8.8. His liver function tests were normal, CPK was 307, his COVID 19 testing was positive, troponin was 0.047 and blood sugar was at 76. The patient was accordingly admitted for further care. On today's evaluation of 10/22/2021, patient is feeling better. Sodium level is improved and it's up to 127. He still feeling weak and lower extremities. He is considered he may not be able to walk. We'll consult physical therapy accordingly. No nausea. No vomiting. No diarrhea. No emesis. No respiratory difficulties and the patient patient is still from the pulmonary standpoint. Noted the patient also has lung mass which may be contributing to a component of SIADH. Nephrology is on the case for now. The white cell cause of 4.7 with hemoglobin of 8.9 and a platelet count of 268. Sodium level is up to 127 with a potassium level of 3.2. 10/23/2021, the patient's sodium level is up to 128. Serum bicarb is at 18. Creatinine is at 0.57. He is awake and alert. He has chronic hoarseness. Blood work is not suggestive of SIADH. The lung mass is present and is highly suspicious for malignancy and needs to be biopsied a later stage. The patient has COVID 19 infection he had a symptomatically from the pulmonary standpoint. No fever. No chills and altered mentation. Resting comfortably in bed. Tolerating his diet. Progress note dated 10/24/2021. This is a 66-year-old male that I haven't seen for some time, who has a suspicious lesion in his right lung. He likely has lung cancer. He had a previous navigational procedure which was nondiagnostic. The patient was to come back and see me before, but never did. He was admitted with a diagnosis of hyponatremia, and he may have SIADH although blood work is not diagnostic. We did make an appointment to see me back in the office. The patient has coronavirus infection, without coronavirus pneumonia. White count 4.3, hemoglobin 9.4, hematocrit 32, and platelet count 287,000. Sodium 1:30, potassium 4, chlorides 101, CO2 21, BUN 6, creatinine 0.59. Chest x-ray again shows a right lung nodule measuring about 3 cm. Progress note dated 10/25/2021. 66-year-old male with a history of hyponatremia. The patient has a suspicious lesion in the right lung, and likely has lung cancer. The patient had a previous navigational procedure, which was nondiagnostic. The patient never came back to see me in follow-up. The patient was admitted with hyponatremia. The most recent sodium is up to 130. The patient will see me in the office, and a decision was made at that time, in regards to another diagnostic procedure. White count 4.3, hemoglobin 10.5, hematocrit 35.3, with a platelet count of 314,000. Sodium is up to 131, potassium 4.2, chlorides 101, CO2 25, BUN 5, with a creatinine 0.61. Yesterday's chest x-ray was reviewed. On 10/26/2021 patient seen in follow-up on medical surgical floor, he is breathing comfortably, denies any shortness of breath or chest pain, he is on room air with pulse ox of 95%, afebrile, hemodynamically he is stable, his been tolerating intubation with assistance. His had no acute events overnight, he has tested positive for COVID-19 this admission however his oxygenation has remained stable. No fever or chills. Today's labs have been reviewed, serum sodium is 129, potassium 3.6, chloride is 100. Pro-calcitonin level was 0.23. Patient was given a dose of Samsca per nephrology, and he is on sodium chloride tablets. His had no acute events overnight, no nausea vomiting or diarrhea. Patient will need subacute rehab after discharge however he tested positive for COVID, however he is refusing to go to a recovery center. [employer] is following. At this point patient is requesting to go home with home care Objective - Vital Signs Vital signs: Vital Signs Temp 98.2 F 10/26/21 09:54 Pulse 71 10/26/21 09:54 Resp 20 10/26/21 09:54 BP 147/76 10/26/21 09:54 Pulse Ox 95 10/26/21 09:54 FiO2 Intake & Output 10/25/21 10/26/21 10/26/21 18:59 06:59 18:59 Intake Total 717 500 0 Output Total 250 Balance 467 500 0 Intake: Oral 717 500 0 Output: Urine 250 Other: Voiding Method Urinal Diaper # Voids 1 1 # Bowel Movements 1 - Exam GENERAL EXAM: Alert, very pleasant, 66-year-old, white male, on room air with pulse ox of 95-98% comfortable in no apparent distress. HEAD: Normocephalic/atraumatic. EYES: Normal reaction of pupils, equal size. Conjunctiva pink, sclera white. NOSE: Clear with pink turbinates. THROAT: No erythema or exudates. NECK: No masses, no JVD, no thyroid enlargement, no adenopathy. CHEST: No chest wall deformity. Symmetrical expansion. LUNGS: Equal air entry with no crackles, wheeze, rhonchi or dullness. CVS: Regular rate and rhythm, normal S1 and S2, no gallops, no murmurs, no rubs ABDOMEN: Soft, nontender. No hepatosplenomegaly, normal bowel sounds, no guarding or rigidity. EXTREMITIES: No clubbing, no edema, no cyanosis, 2+ pulses and upper and lower extremities. MUSCULOSKELETAL: Muscle strength and tone normal. SPINE: No scoliosis or deformity SKIN: No rashes CENTRAL NERVOUS SYSTEM: Alert and oriented -3. No focal deficits, tone is normal in all 4 extremities. PSYCHIATRIC: Alert and oriented -3. Appropriate affect. Intact judgment and insight. - Labs CBC & Chem 7: 10/25/21 08:30 10/26/21 07:07 Labs: Abnormal Lab Results - Last 24 Hours (Table) 10/26/21 Range/Units 07:07 Sodium 129 L (135-145) mmol/L Carbon Dioxide 19.8 L (20.0-27.5) mmol/L Anion Gap 9.20 L (10.00-18.00) mmol/L Assessment and Plan Plan: Assessment: #1. Hyponatremia, secondary to hypovolemia with a component of SIADH, improved #2. Weakness and falls at home related to the above #3. Right lung mass status post navigation bronchoscopy which was nondiagnostic, patient never returned for office follow-up #4. Chronic anemia #5. History of vocal cord paralysis #6. Hypertension #7. Tobacco dependence syndrome #8. COPD #9. Chronic alcoholism #10. Anorexia/cachexia syndrome Plan: Patient has been stable from pulmonary perspective, Today's labs have been noted he could benefit from subacute rehab placement however he is refusing to go to a [facility] [place] He'll need outpatient follow-up in regards to repeat bronchoscopy with biopsies of the right lung mass Pulmonary service will sign off and follow on as-needed basis while arrangements are being made for placement to subacute rehab or home with home care I have personally seen and examined the patient, performed the documentation and the assessment and plan as written. Number of minutes spent on the visit: [10] Time with Patient: Less than 30
[2021-10-26] MEDS ORDERED: TOLVAPTAN 15 MG 1/2 TABLET PO ONE (12:00)
--- NOTE | 2021-10-26 14:24 | P.CONS ---
History of Present Illness - Chief Complaint Medical debility - History of Present Illness I had the opportunity to see patient for inpatient rehab consultation guard to medical debility. Patient admitted October 20 with mental status change, weakness, found on floor by sister. Chest x-ray demonstrates COPD, right nodules and patchy infiltrate consistent with Covid pneumonia. Seen by Dr. Radford for SIADH. Seen by Dr. Chatman for the pneumonia and a known lung mass. Venous Doppler done and negative for DVT left leg. Head CT with right parietal temporal infarct. C-spine CT negative. OT reports supervision for feeding and completed independent with grooming. Supervision for upper dressing mod assist for lower dressing and bathing and really unable to stand and transfer. Patient declined OT earlier today. PT prescribed. Previous functional history as elicited from patient: 66-year-old right-handed white male who is lives in a trailer home alone. Retired. Describes independent with own cooking, laundry, standing shower. Has occasional need of roller walker or 4 wheeled walker. Depends on family for driving. PCP Dr. Plata. Admits smoking three-quarter pack per day and beer on weekend. Note dictations indicated history of alcohol and noncompliance. Review of Systems Review of systems: ENT: Denies sneezes or discharge. Eyes: Denies discharge or photophobia. Cardiac: Denies chest pain or palpitation. Pulmonary: Improving shortness of breath. Gastrointestinal: Denies nausea, emesis, constipation, diarrhea. Genitourinary: Denies discharge or frequency. Musculoskeletal: Denies muscle or bone aches. Neurologic: Mild generalized weakness. Endocrine: Denies shakes or sweats. Oncology: Denies cancers. Dermatologic: Denies rash, itching, pruritus. ALLERGY/immunology: Denies sneezes, rashes. Past Medical History Past Medical History: Cancer, GERD/Reflux, Hypertension Additional Past Medical History / Comment(s): paralyzed vocal cord, SKIN CANCER(FACE), mass in lungs History of Any Multi-Drug Resistant Organisms: None Reported Past Surgical History: Orthopedic Surgery Additional Past Surgical History / Comment(s): triple endoscopy, LT KNEE SCOPE, LT KNEE MENISCUS SX Past Anesthesia/Blood Transfusion Reactions: No Reported Reaction Additional Past Anesthesia/Blood Transfusion Reaction / Comm: . Past Psychological History: No Psychological Hx Reported Smoking Status: Current every day smoker Past Alcohol Use History: Daily Past Drug Use History: None Reported - Past Family History Father Family Medical History: Congestive Heart Failure (CHF), Myocardial Infarction (VT) Mother Family Medical History: No Reported History Additional Family Medical History / Comment(s): MOM IS IN GOOD HEALTH AT AGE 96 Medications and Allergies Home Medications Medication Instructions Recorded Confirmed Type Omeprazole Magnesium [PriLOSEC OTC] 20 mg PO DAILY PRN 06/14/21 10/20/21 History Acetaminophen Tab [Tylenol] 1,000 mg PO Q6H PRN 10/11/21 10/20/21 History Famotidine [Pepcid] 20 mg PO DAILY PRN 10/11/21 10/20/21 History diphenhydrAMINE [Benadryl] 25 - 50 mg PO HS PRN 10/11/21 10/20/21 History cloNIDine HCL [Catapres] 0.1 mg PO BID 10/12/21 10/20/21 History Docusate [Colace] 100 mg PO DAILY #30 capsule 10/16/21 10/20/21 Rx Ferrous Sulfate [Feosol] 325 mg PO DAILY #30 tab 10/16/21 10/20/21 Rx Thiamine [Vitamin B-1] 100 mg PO BID-W/MEALS #60 tab 10/16/21 10/20/21 Rx amLODIPine [Norvasc] 5 mg PO DAILY #30 tab 10/16/21 10/20/21 Rx Sodium Bicarbonate Tab 650 mg PO BID #60 tab 10/17/21 10/20/21 Rx Sodium Chloride Tab 1 gm PO DAILY #30 tab 10/17/21 10/20/21 Rx Allergies Allergy/AdvReac Type Severity Reaction Status Date / Time No Known Allergies Allergy Verified 10/11/21 17:16 Physical Exam Vitals: Vital Signs Temp Pulse Resp BP Pulse Ox 10/26/21 09:54 98.2 F 71 20 147/76 95 10/26/21 07:46 98 10/26/21 02:00 98.7 F 70 16 133/84 95 10/25/21 22:00 98.2 F 74 18 128/74 94 L 10/25/21 17:45 97.5 F L 88 16 141/79 98 10/25/21 17:20 88 16 Intake and Output 10/25/21 10/26/21 10/26/21 22:59 06:59 14:59 Intake Total 240 500 0 Balance 240 500 0 Intake: Oral 240 500 0 Other: Voiding Method Urinal Diaper # Voids 1 1 Skin: Good color, texture, turgor. General: Thin and wire a build and comfortable appearance. Head: Normocephalic, atraumatic. Eyes: Symmetric. Pupils equal round. Ears: Symmetric. Hearing within normal limits. Mouth: Clear. Neck: Supple. Carotid without bruit. Cardiac: Regular rate and rhythm. Lungs: Clear anteriorly and posteriorly. Abdomen: Soft active nontender. Extremities: Normal tone. Neurological: Mental status: Alert, cooperative, pleasant. Cranial nerves: Symmetric facial tone and trapezius. Motor: Active movement all 4 limbs. Sensation: Intact throughout. DTRs: Symmetric and equal throughout. Mobility: Patient reports that he has been up on own in room including to bathroom. Results CBC & Chem 7: 10/25/21 08:30 10/26/21 07:07 Labs: Abnormal Lab Results - Last 24 Hours (Table) 10/26/21 Range/Units 07:07 Sodium 129 L (135-145) mmol/L Carbon Dioxide 19.8 L (20.0-27.5) mmol/L Anion Gap 9.20 L (10.00-18.00) mmol/L Assessment and Plan (1) Altered mental status Current Visit: Yes Status: Acute Code(s): R41.82 - ALTERED MENTAL STATUS, UNSPECIFIED SNOMED Code(s): 795329918 (2) COVID-19 Current Visit: Yes Status: Acute Code(s): U07.1 - COVID-19 SNOMED Code(s): 920439493 (3) Hyponatremia Current Visit: Yes Status: Acute Code(s): E87.1 - HYPO-OSMOLALITY AND HYP ONATREMIA SNOMED Code(s): 90666611 (4) Weakness Current Visit: Yes Status: Acute Code(s): R53.1 - WEAKNESS SNOMED Code(s): 83195607 (5) Adrenal nodule Current Visit: No Status: Acute Priority: High Code(s): E27.8 - OTHER SPEC IFIED DISORDERS OF ADRENAL GLAND SNOMED Code(s): 697724550 (6) Alcoholic Current Visit: No Status: Acute Code(s): F10.20 - ALCOHOL DEPENDENCE, UNCOMPLICATED SNOMED Code(s): 9430271 (7) Anemia Current Visit: No Status: Acute Code(s): D64.9 - ANEMIA, UNSPECIFIED SNOMED Code(s): 758011986 (8) Anorexia Current Visit: No Status: Acute Priority: High Code(s): R63.0 - ANOREXIA SNOMED Code(s): 02055516 Plan: Comments and plan: At this time PT and OT are prescribed. At we yet to see a PT note. Patient declined to OT earlier today at this time is advised and encouraged to fully participate with therapies. Have discussed possible inpatient rehab pending safety concerns and the ability to tolerate, cooperate and benefit from therapies.
--- NOTE | 2021-10-26 16:48 | P.PN ---
Subjective 66-year-old male patient brought into ER; patient was found on the floor at home by family members. The patient reported he was feeling very weak and he was unable to get up. No focal neurological deficits. The patient's was recently discharged from the hospital 3 days ago after being admitted for altered electrolytes and severe hyponatremia. He was given 3% hypertonic saline and his sodium improved and the patient responded well on the care of nephrology. He had been eating well. His sodium was up to 131 at time of discharge. Denies h aving any nausea vomiting or abdominal pain. No chest pain. No new medications have been started. No diuretics at home. The patient had a lung mass that was highly suspicious for bronchogenic carcinoma noted on a CAT scan of the chest that was done on 10/12/2021. There is a high suspicion for bronchogenic cancer. The repeat chest x-ray during this current admission showed the same finding of a right upper lobe mass. Blood work reveals sodium was down 117 with a BUN of 8 and a creatinine of 0.56 and the patient's chloride level was 89 and a serum bicarb was 19. The white cell count was 6 with a hemoglobin of 8.8. His liver function tests were normal, CPK was 307, his COVID 19 testing was positive, troponin was 0.047 and blood sugar was at 76. 10/22/2021, patient is feeling better. Sodium level is improved and it's up to 127; white cell cause of 4.7 with hemoglobin of 8.9 and a platelet count of 268. Sodium level is up to 127 with a potassium level of 3.2.. PT/OT has been consulted to evaluate for debility and discharge planning 10/23/2021, this is the first day I started taking care of the patient This is a pleasant 66 years old male who presents initially because of altered mental status secondary to hypovolemia hyponatremia and he was treated with IV fluids and currently improved. Also has evidence of Covid infection and right upper lobe lung mass for which patient is aware of. Patient today is awake and alert but he has some dyspnea especially with talking. He is hemodynamically stable. Improved 128. Fluids were stopped and he was kept on sodium tablets. Patient told me he is aware about his lung mass and that he needs to get a biopsy for its and he told me he will follow-up with Dr. Cobb for this purpose. Informed he needs to follow up with wellness program manager Dr. Garciaand he agrees and willing to do so as he told 10/25/2011 Patient still short of breath when talking, he denies chest pain or significant coughing. He is saturating 94-97% on room air, mildly tachypneic while at rest. Chest x-ray Relatively similar exam with right-sided nodules and background COPD. There is some mild patchy peripheral opacity also noted that could reflect COVID pneumonia. Labs from today are still pending. He remains on sodium tablets. He is off IV fluids. Repeat pro-calcitonin is pending 10/25/2021 Patient breathing status is a stable, is still slightly tachypneic which is expected with his lung mass. I discussed the case with pulmonary team and they cleared him for discharge today. Both pulmonary team and the patient are aware with his appointment with Dr. Garcia on for addressing his lung mass. Patient is aware it may be cancerous. Sodium improved to 131 sodium tablets lower to once a day. Patient medically stable for discharge, he was cleared by both nephrology and pulmonary team ECF is recommended for him and patient agreeable pending placement. Sodium in the morning 10/26/2021 Patient clinically looks the same regarding his breathing pattern however he feels more weak today without further specification, no other symptoms. His sodium today went down 131 down to 129, he received 1 dose of samsca and will check sodium again in the morning Patient aware of the need to follow up with Dr. Garcia for his lung mass on 11/09 Consult was placed today to Dr. Linda for possible placement of inpatient rehab Patient medically stable for discharge pending placement Objective - Vital Signs Vital signs: Vital Signs Temp 98.2 F 10/26/21 09:54 Pulse 71 10/26/21 09:54 Resp 20 10/26/21 09:54 BP 147/76 10/26/21 09:54 Pulse Ox 95 10/26/21 09:54 FiO2 Intake & Output 10/25/21 10/26/21 10/26/21 18:59 06:59 18:59 Intake Total 717 500 0 Output Total 250 Balance 467 500 0 Intake: Oral 717 500 0 Output: Urine 250 Other: Voiding Method Urinal Diaper # Voids 1 1 # Bowel Movements 1 - Exam GENERAL: The patient is alert and oriented x3, not in any acute distress. Well developed, well nourished. HEENT: Pupils are round and equally reacting to light. EOMI. No scleral icterus. No conjunctival pallor. Normocephalic, atraumatic. No pharyngeal erythema. No thyromegaly. CARDIOVASCULAR: S1 and S2 present. No murmurs, rubs, or gallops. PULMONARY: Chest is clear to auscultation, no wheezing or crackles. ABDOMEN: Soft, nontender, nondistended, normoactive bowel sounds. No palpable organomegaly. MUSCULOSKELETAL: No joint swelling or deformity. EXTREMITIES: No cyanosis, clubbing, or pedal edema. NEUROLOGICAL: Gross neurological examination did not reveal any focal deficits. SKIN: No rashes. no petechiae. 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 Plan: This is a pleasant 66 years old male who presents with hyponatremia, lung mass. Covid infection. Current patient currently is off IV fluids and kept on sodium chloride tablets. [employer] and pulmonology team on the case. Keep monitoring sodium. Follow-upcalcitonin Patient will need to follow-up wellness program manager Dr. Gibbs upon discharge as well as thoracic surgeon Dr. Cobb and he agrees Labs and medication were reviewed.. Continue same treatment. Continue with symptomatic treatment. Resume home medication. Monitor lytes and vitals. DVT and GI prophylaxis. Further recommendationsas per clinical course of the patient DVT prophylaxis: Subcutaneous Lovenox GI Prophylaxis: Pepcid and px PT/OT: Pending Prognosis is guarded
[2021-10-27] MEDS: ASCORBIC ACID 500 MG TAB PO SCH ×2 (09:13→20:05)
[2021-10-27] MEDS: ZINC SULFATE 220 MG CAP PO SCH (09:13)
[2021-10-27] MEDS: SODIUM BICARBONATE TAB 650 MG TAB PO SCH ×2 (09:13→20:05)
[2021-10-27] MEDS: CHOLECALCIFEROL 25 MCG (1000 IU) TABLET PO SCH (09:13)
[2021-10-27] MEDS: amLODIPine 5 MG TAB PO SCH (09:13)
[2021-10-27] MEDS: THIAMINE 100 MG TAB PO SCH ×2 (09:13→17:39)
[2021-10-27] MEDS: ENOXAPARIN 40 MG/0.4 ML SYRINGE SQ SCH (09:14)
[2021-10-27] MEDS: FERROUS SULFATE 325 MG TAB PO SCH (09:14)
[2021-10-27] MEDS: DOCUSATE 100 MG CAP PO SCH (09:14)
[2021-10-27] MEDS: SODIUM CHLORIDE TAB 1 GM TAB PO SCH (09:14)
[2021-10-27 09:34] LABS: African American GFR (CKD) 121.4 (60.0-200.0); Anion Gap 8.4 mmol/L (10.00-18.00); BUN/Creat Ratio 10.17 Ratio (12.00-20.00); Blood Urea Nitrogen 6.1 mg/dL (9.0-27.0); Calcium 8.7 mg/dL (8.7-10.3); Carbon Dioxide 20.6 mmol/L (20.0-27.5); Non-African American GFR(CKD) 104.8 (60.0-200.0); Potassium 3.8 mmol/L (3.5-5.5)
--- NOTE | 2021-10-27 10:33 | P.PN ---
Subjective Patient is seen for follow-up for hyponatremia. Patient was started on normal saline and received sodium chloride tablet his sodium had increased from 117-125 and therefore saline and sodium chloride tablets were discontinued. This morning sodium is up to 127. Patient states he is feeling much better. There is no ongoing nausea vomiting abdominal pain or diarrhea. Patient tested positive for coronary virus PCR Sodium had improved to 131 Currently maintained on sodium chloride tabs and sodium bicarb for metabolic acidosis. Sodium chloride Was decreased to 1 g daily Serum sodium was 129 and patient received a dose of Samsca. Sodium is 138 today No significant nausea vomiting abdominal pain or diarrhea. Objective - Vital Signs Vital signs: Vital Signs Temp 98.1 F 10/27/21 08:00 Pulse 81 10/27/21 08:00 Resp 18 10/27/21 08:00 BP 127/82 10/27/21 08:00 Pulse Ox 96 10/27/21 08:00 FiO2 Intake & Output 10/26/21 10/27/21 10/27/21 18:59 06:59 18:59 Intake Total 180 180 Balance 180 180 Intake: Oral 180 180 Other: Voiding Method Urinal Diaper # Voids 1 3 1 # Bowel Movements 1 - Exam Awake, comfortable, not in any acute distress Abdomen is soft nontender Examination of lower extremity shows no evidence of edema GROCERY WORKER exam grossly intact - Labs CBC & Chem 7: 10/25/21 08:30 10/27/21 05:52 Labs: Abnormal Lab Results - Last 24 Hours (Table) 10/26/21 10/27/21 Range/Units 07:07 05:52 Sodium 129 L (135-145) mmol/L Carbon Dioxide 19.8 L (20.0-27.5) mmol/L Anion Gap 9.20 L 8.40 L (10.00-18.00) mmol/L BUN 6.1 L (9.0-27.0) mg/dL BUN/Creatinine Ratio 10.17 L (12.00-20.00) Ratio Assessment and Plan Assessment: 1. Hyponatremia possibly hypovolemic however patient had an element of SIADH on his last hospitalization. He had responded well to Samsca at that time. Status post normal saline this admission and maintained on sodium chloride tabs currently. Sodium was up to 131 and down to 129 yesterday. Patient received a dose of Samsca and sodium is 138 today. 2. Metabolic acidosis currently maintained on sodium bicarb. No diarrhea per patient. Renal function is well-preserved 3. Anemia, rule out iron deficiency. No active bleeding noted. 4. Hypertension currently controlled maintained on Norvasc. 5. Positive coronavirus PCR, coarse interstitial markings noted on chest x-ray. Currently 95% on room air Plan: Patient can be discharged from nephrology standpoint. Continue with sodium chloride tabs daily as outpatient Monitor serum sodium closely as outpatient. Maintain fluid restriction
[2021-10-27 11:57] VITALS: BMI 20.2
--- NOTE | 2021-10-27 12:29 | P.PN ---
Subjective Progress Note Date: 10/27/21 66-year-old male patient brought into the emergency department as the patient was found on the floor at home by her sister. The exact downtime is not known as the patient was found on the floor by family members. The patient denied having any injuries. He stated that he was getting and feeling very weak and he was unable to get up. No focal neurological deficits. The patient's was recently discharged from the hospital 3 days ago after being admitted for altered electrolytes and severe hyponatremia. He was given 3% hypertonic saline and his sodium improved and the patient responded well on the care of nephrology. He had been eating well. His sodium was up to 131 at time of discharge. Denies having any nausea vomiting or abdominal pain. No chest pain. No new medications have been started. No diuretics at home. The patient was also seen by our services during the earlier hospitalization. The patient had a lung mass that was highly suspicious for bronchogenic carcinoma and we recom mended outpatient follow-up with a PET scan and a navigational bronchoscopy for this patient. The patient an enlarging mass in the right upper lobe that was most likely consistent with bronchogenic carcinoma. This was noted on a CAT scan of the chest that was done on 10/12/2021. There is a high suspicion for bronchogenic cancer. The repeat chest x-ray during this current admission showed the same finding of a right upper lobe mass. The patient came back to the emergency afebrile, hemodynamically stable, his sodium was down 217 with a BUN of 8 and a creatinine of 0.56 and the patient's chloride level was 89 and a serum bicarb was 19. The white cell count was 6 with a hemoglobin of 8.8. His liver function tests were normal, CPK was 307, his COVID 19 testing was positive, troponin was 0.047 and blood sugar was at 76. The patient was accordingly admitted for further care. On today's evaluation of 10/22/2021, patient is feeling better. Sodium level is improved and it's up to 127. He still feeling weak and lower extremities. He is considered he may not be able to walk. We'll consult physical therapy accordingly. No nausea. No vomiting. No diarrhea. No emesis. No respiratory difficulties and the patient patient is still from the pulmonary standpoint. Noted the patient also has lung mass which may be contributing to a component of SIADH. Nephrology is on the case for now. The white cell cause of 4.7 with hemoglobin of 8.9 and a platelet count of 268. Sodium level is up to 127 with a potassium level of 3.2. 10/23/2021, the patient's sodium level is up to 128. Serum bicarb is at 18. Creatinine is at 0.57. He is awake and alert. He has chronic hoarseness. Blood work is not suggestive of SIADH. The lung mass is present and is highly suspicious for malignancy and needs to be biopsied a later stage. The patient has COVID 19 infection he had a symptomatically from the pulmonary standpoint. No fever. No chills and altered mentation. Resting comfortably in bed. Tolerating his diet. Progress note dated 10/24/2021. This is a 66-year-old male that I haven't seen for some time, who has a suspicious lesion in his right lung. He likely has lung cancer. He had a previous navigational procedure which was nondiagnostic. The patient was to come back and see me before, but never did. He was admitted with a diagnosis of hyponatremia, and he may have SIADH although blood work is not diagnostic. We did make an appointment to see me back in the office. The patient has coronavirus infection, without coronavirus pneumonia. White count 4.3, hemo globin 9.4, hematocrit 32, and platelet count 287,000. Sodium 1:30, potassium 4, chlorides 101, CO2 21, BUN 6, creatinine 0.59. Chest x-ray again shows a right lung nodule measuring about 3 cm. Progress note dated 10/25/2021. 66-year-old male with a history of hyponatremia. The patient has a suspicious lesion in the right lung, and likely has lung cancer. The patient had a previous navigational procedure, which was nondiagnostic. The patient never came back to see me in follow-up. The patient was admitted with hyponatremia. The most recent sodium is up to 130. The patient will see me in the office, and a decision was made at that time, in regards to another diagnostic procedure. W jhonatan count 4.3, hemoglobin 10.5, hematocrit 35.3, with a platelet count of 314,000. Sodium is up to 131, potassium 4.2, chlorides 101, CO2 25, BUN 5, with a creatinine 0.61. Yesterday's chest x-ray was reviewed. On 10/26/2021 patient seen in follow-up on medical surgical floor, he is breathing comfortably, denies any shortness of breath or chest pain, he is on room air with pulse ox of 95%, afebrile, hemodynamically he is stable, his been tolerating intubation with assistance. His had no acute events overnight, he has tested positive for COVID-19 this admission however his oxygenation has remained stable. No fever or chills. Today's labs have been reviewed, serum sodium is 129, potassium 3.6, chloride is 100. Pro-calcitonin level was 0.23. Patient was given a dose of Samsca per nephrology, and he is on sodium chloride tablets. His had no acute events overnight, no nausea vomiting or diarrhea. Patient will need subacute rehab after discharge however he tested positive for COVID, however he is refusing to go to a recovery center. drum worker is following. At this point patient is requesting to go home with home care The patient is seen today 10/28/1999 follow-up on the regular medical floor. He is currently sitting up in a chair at the bedside. Awake and alert in no acute distress. No significant events overnight. Maintaining O2 saturations in the 90s on room air. He's been afebrile. Hemodynamically stable. Sodium 138. Potassium 3.8. BUN 6. Creatinine 0.6. Glucose 93. He remains on sodium bicarb tablets. Lovenox for DVT prophylaxis. Vitamin supplements. Objective - Vital Signs Vital signs: Vital Signs Temp 98.1 F 10/27/21 08:00 Pulse 81 10/27/21 08:00 Resp 18 10/27/21 08:00 BP 127/82 10/27/21 08:00 Pulse Ox 96 10/27/21 08:00 FiO2 Intake & Output 10/26/21 10/27/21 10/27/21 18:59 06:59 18:59 Intake Total 180 180 Balance 180 180 Weight 60.328 kg Intake: Oral 180 180 Other: Voiding Method Urinal Diaper # Voids 1 3 1 # Bowel Movements 1 - Exam GENERAL EXAM: Alert, 66-year-old male, on room air, comfortable in no apparent distress. HEAD: Normocephalic/atraumatic. EYES: Normal reaction of pupils, equal size. Conjunctiva pink, sclera white. NOSE: Clear with pink turbinates. THROAT: No erythema or exudates. NECK: No masses, no JVD, no thyroid enlargement, no adenopathy. CHEST: No chest wall deformity. Symmetrical expansion. LUNGS: Equal air entry with no crackles, wheeze, rhonchi or dullness. CVS: Regular rate and rhythm, normal S1 and S2, no gallops, no murmurs, no rubs ABDOMEN: Soft, nontender. No hepatosplenomegaly, normal bowel sounds, no g uarding or rigidity. EXTREMITIES: No clubbing, no edema, no cyanosis, 2+ pulses and upper and lower extremities. MUSCULOSKELETAL: Muscle strength and tone normal. SPINE: No scoliosis or deformity SKIN: No rashes CENTRAL NERVOUS SYSTEM: No focal deficits, tone is normal in all 4 extremities. PSYCHIATRIC: Alert and oriented -3. Appropriate affect. Intact judgment and insight. - Labs CBC & Chem 7: 10/25/21 08:30 10/27/21 05:52 Labs: Abnormal Lab Results - Last 24 Hours (Table) 10/27/21 Range/Units 05:52 Anion Gap 8.40 L (10.00-18.00) mmol/L BUN 6.1 L (9.0-27.0) mg/dL BUN/Creatinine Ratio 10.17 L (12.00-20.00) Ratio Assessment and Plan Assessment: 1 Hyponatremia, secondary to hypovolemia with a component of SIADH, improved and current sodium 138 2 Weakness and falls at home related to the above 3 Right lung mass status post navigation bronchoscopy which was nondiagnostic, patient never returned for office follow-up 4 Chronic anemia 5 History of vocal cord paralysis 6 Hypertension 7 Tobacco dependence syndrome 8 COPD 9 Chronic alcoholism 10 Anorexia/cachexia syndrome Plan: The patient was seen and evaluated Currently stable and on room air Discharge planning in place We will see as needed I have personally seen and examined the patient, performed the documentation and the assessment and plan as written. Number of minutes spent on the visit: 10 .
--- NOTE | 2021-10-27 13:33 | P.DS ---
Providers Date of admission: 10/21/21 01:08 Attending physician: Corwin Santoyo Consults: 10/21/21 08:54 Consult Physician Routine Consulting Provider: Becca Radford Consult Reason/Comments: low sodium Do you want consulting provider notified?: Yes 10/21/21 11:26 Consult Physician Routine Consulting Provider: Harmony Chatman Consult Reason/Comments: COVID-19 infection Do you want consulting provider notified?: Yes 10/26/21 09:24 Consult Physician Routine Consulting Provider: Parish Bustamante Consult Reason/Comments: rehab Do you want consulting provider notified?: Yes Primary care physician: See [facility] Course: Diagnoses: Metabolic encephalopathy secondary to hypovolemic hyponatremia, improved Hypovolemic hyponatremia, with some elements of SIADH Right upper lobe lung mass, suspicious for cancer, patient aware and willing to follow up as an outpatient with Dr. Garcia. Appointment made for him on 11/09 and he agrees Covid infection with no pneumonia or hypoxia History of old stroke with right parietal and temporal infarct seen on the CT of the brain. Hospital course: 66-year-old male patient brought into ER; patient was found on the floor at home by family members. The patient reported he was feeling very weak and he was unable to get up. No focal neurological deficits. The patient's was recently discharged from the hospital 3 days ago after being admitted for altered electrolytes and severe hyponatremia. He was given 3% hypertonic saline and his sodium improved and the patient responded well on the care of nephrologyl. His sodium was up to 131 at time of discharge. This time his sodium on admission was 117, improved from yesterday with conservative management went up to 131 and then 1 down to 129 yesterday. He received 1 dose of samaca yesterday and his sodium improved to normal today at 138. He was cleared for discharge by nephrology today and to continue with sodium chloride tablets daily as outpatient. Also patient will need to monitor sodium level up closely as an outpatient. Placement pain fluid restriction -The patient had a lung mass that was highly suspicious for bronchogenic carcinoma noted on a CAT scan of the chest that was done on 10/12/2021. There is a high suspicion for bronchogenic cancer. Patient has been evaluated by general magistrate. An appointment made for him with general magistrate Dr. Garcia on 11/09 and both patient and pulmonary team agree. His Covid infection was without known pneumonia. No need for steroids and was treated conservatively with vitamins. Today patient is fully awake and oriented, no chest pain or dyspnea rest. No change in urine or bowel habits. No fever. Patient was cleared for discharge by pulmonary and nephrology teams Problems and management plan were discussed with the patient and he verbalized understanding and acceptance Patient was found stable and can be discharged to [facility] in guarded prognosis for inpatient rehab however he needs follow-up as an outpatient. Patient was instructed to follow up with PCP Dr. Plata within one week and patient agrees Patient was instructed to follow up with Dr. Garcia general magistrate on 11/09 and he agrees Patient was instructed to follow up with Dr. Radford coremaker bench in 1-2 weeks and he agrees. Physical exam Gen: patient is a AAOx3, no distress CVS: S1-S2, RRR, no murmur Lungs: B/L CTA, no wheezing Abdomen: soft, no distention, no tenderness, positive bowel sounds Extremity: no leg edema or induration Time spent more than 35 minutes Patient Condition at Discharge: Poor Plan - Discharge Summary Discharge Rx Participant: No New Discharge Prescriptions: No Action diphenhydrAMINE [Benadryl] 25 - 50 mg PO HS PRN PRN Reason: Insomnia amLODIPine [Norvasc] 5 mg PO DAILY #30 tab Thiamine [Vitamin B-1] 100 mg PO BID-W/MEALS #60 tab Sodium Bicarbonate Tab 650 mg PO BID #60 tab Sodium Chloride Tab 1 gm PO DAILY #30 tab Omeprazole Magnesium [PriLOSEC OTC] 20 mg PO DAILY PRN PRN Reason: Heartburn Famotidine [Pepcid] 20 mg PO DAILY PRN PRN Reason: Heartburn Acetaminophen Tab [Tylenol] 1,000 mg PO Q6H PRN PRN Reason: Fever And/ Or Pain cloNIDine HCL [Catapres] 0.1 mg PO BID Docusate [Colace] 100 mg PO DAILY #30 capsule Ferrous Sulfate [Feosol] 325 mg PO DAILY #30 tab Discharge Medication List Omeprazole Magnesium [PriLOSEC OTC] 20 mg PO DAILY PRN 06/14/21 [History] Acetaminophen Tab [Tylenol] 1,000 mg PO Q6H PRN 10/11/21 [History] Famotidine [Pepcid] 20 mg PO DAILY PRN 10/11/21 [History] diphenhydrAMINE [Benadryl] 25 - 50 mg PO HS PRN 10/11/21 [History] cloNIDine HCL [Catapres] 0.1 mg PO BID 10/12/21 [History] Docusate [Colace] 100 mg PO DAILY #30 capsule 10/16/21 [Rx] Ferrous Sulfate [Feosol] 325 mg PO DAILY #30 tab 10/16/21 [Rx] Thiamine [Vitamin B-1] 100 mg PO BID-W/MEALS #60 tab 10/16/21 [Rx] amLODIPine [Norvasc] 5 mg PO DAILY #30 tab 10/16/21 [Rx] Sodium Bicarbonate Tab 650 mg PO BID #60 tab 10/17/21 [Rx] Sodium Chloride Tab 1 gm PO DAILY #30 tab 10/17/21 [Rx] Follow up Appointment(s)/Referral(s): See Plata III, MD [Primary Care Provider] - 1-2 days Mann Garcia DO [Doctor of Osteopathic Medicine] - 11/09/21 2:00 pm
[2021-10-28] MEDS: THIAMINE 100 MG TAB PO SCH ×2 (08:06→18:04)
[2021-10-28] MEDS: SODIUM CHLORIDE TAB 1 GM TAB PO SCH (08:06)
[2021-10-28] MEDS: ASCORBIC ACID 500 MG TAB PO SCH ×2 (08:06→19:36)
[2021-10-28] MEDS: amLODIPine 5 MG TAB PO SCH (08:06)
[2021-10-28] MEDS: SODIUM BICARBONATE TAB 650 MG TAB PO SCH ×2 (08:06→19:36)
[2021-10-28] MEDS: FERROUS SULFATE 325 MG TAB PO SCH (08:06)
[2021-10-28] MEDS: ENOXAPARIN 40 MG/0.4 ML SYRINGE SQ SCH (08:06)
[2021-10-28] MEDS: ZINC SULFATE 220 MG CAP PO SCH (08:06)
[2021-10-28] MEDS: CHOLECALCIFEROL 25 MCG (1000 IU) TABLET PO SCH (08:06)
[2021-10-28] MEDS: DOCUSATE 100 MG CAP PO SCH (08:06)
--- NOTE | 2021-10-28 11:12 | P.PN ---
Subjective Patient is seen in follow-up for hyponatremia. Sodium level 138 yesterday. Oral intake has been fair. Denies vomiting or diarrhea. No chest pain or shortness of breath. Vital signs are stable. General: No acute distress. HEENT: Head exam is unremarkable. LUNGS: Breath sounds decreased. HEART: Rate and Rhythm are regular. ABDOMEN: Soft, no distention. EXTREMITITES: No edema. Objective - Vital Signs Vital signs: Vital Signs Temp 97.9 F 10/28/21 10:00 Pulse 81 10/28/21 10:00 Resp 18 10/28/21 10:00 BP 123/71 10/28/21 10:00 Pulse Ox 94 L 10/28/21 10:00 FiO2 Intake & Output 10/27/21 10/28/21 10/28/21 18:59 06:59 18:59 Intake Total 180 Balance 180 Weight 60.328 kg Intake: Oral 180 Other: Voiding Method Diaper Diaper Urinal # Voids 1 2 # Bowel Movements 1 - Labs CBC & Chem 7: 10/25/21 08:30 10/27/21 05:52 Assessment and Plan Plan: Assessment: 1. 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 Also concern for lung cancer. Status post and for this admission. Maintain on sodium chloride tab. Sodium level 138 yesterday. Urine sodium 35 and urine osmolality 389. TSH normal on 10/17/2021. 2. Metabolic acidosis maintained on oral bicarb. 3. Anemia. No active bleeding. 4. Benign hypertension. Controlled. 5. COVID-19 infection. 6. Right upper lobe lung mass. He will be following up with pulmonology outpatient. Plan: Maintain sodium chloride tab. Maintain 40-45 oz fluid restriction per day upon discharge. Encouraged protein intake. Check iron studies. Repeat BMP and magnesium level 2-3 days postdischarge. Follow up outpatient in 1 week.
--- NOTE | 2021-10-28 11:51 | P.PN ---
Subjective 66-year-old male patient brought into ER; patient was found on the floor at home by family members. The patient reported he was feeling very weak and he was unable to get up. No focal neurological deficits. The patient's was recently discharged from the hospital 3 days ago after being admitted for altered electrolytes and severe hyponatremia. He was given 3% hypertonic saline and his sodium improved and the patient responded well on the care of nephrology. He had been eating well. His sodium was up to 131 at time of discharge. Denies h aving any nausea vomiting or abdominal pain. No chest pain. No new medications have been started. No diuretics at home. The patient had a lung mass that was highly suspicious for bronchogenic carcinoma noted on a CAT scan of the chest that was done on 10/12/2021. There is a high suspicion for bronchogenic cancer. The repeat chest x-ray during this current admission showed the same finding of a right upper lobe mass. Blood work reveals sodium was down 117 with a BUN of 8 and a creatinine of 0.56 and the patient's chloride level was 89 and a serum bicarb was 19. The white cell count was 6 with a hemoglobin of 8.8. His liver function tests were normal, CPK was 307, his COVID 19 testing was positive, troponin was 0.047 and blood sugar was at 76. 10/22/2021, patient is feeling better. Sodium level is improved and it's up to 127; white cell cause of 4.7 with hemoglobin of 8.9 and a platelet count of 268. Sodium level is up to 127 with a potassium level of 3.2.. PT/OT has been consulted to evaluate for debility and discharge planning 10/23/2021, this is the first day I started taking care of the patient This is a pleasant 66 years old male who presents initially because of altered mental status secondary to hypovolemia hyponatremia and he was treated with IV fluids and currently improved. Also has evidence of Covid infection and right upper lobe lung mass for which patient is aware of. Patient today is awake and alert but he has some dyspnea especially with talking. He is hemodynamically stable. Improved 128. Fluids were stopped and he was kept on sodium tablets. Patient told me he is aware about his lung mass and that he needs to get a biopsy for its and he told me he will follow-up with Dr. Cobb for this purpose. Informed he needs to follow up with skip pit worker Dr. Garciaand he agrees and willing to do so as he told 10/25/2011 Patient still short of breath when talking, he denies chest pain or significant coughing. He is saturating 94-97% on room air, mildly tachypneic while at rest. Chest x-ray Relatively similar exam with right-sided nodules and background COPD. There is some mild patchy peripheral opacity also noted that could reflect COVID pneumonia. Labs from today are still pending. He remains on sodium tablets. He is off IV fluids. Repeat pro-calcitonin is pending 10/25/2021 Patient breathing status is a stable, is still slightly tachypneic which is expected with his lung mass. I discussed the case with pulmonary team and they cleared him for discharge today. Both pulmonary team and the patient are aware with his appointment with Dr. Garcia on for addressing his lung mass. Patient is aware it may be cancerous. Sodium improved to 131 sodium tablets lower to once a day. Patient medically stable for discharge, he was cleared by both nephrology and pulmonary team ECF is recommended for him and patient agreeable pending placement. Sodium in the morning 10/26/2021 Patient clinically looks the same regarding his breathing pattern however he feels more weak today without further specification, no other symptoms. His sodium today went down 131 down to 129, he received 1 dose of samsca and will check sodium again in the morning Patient aware of the need to follow up with Dr. Garcia for his lung mass on 11/09 Consult was placed today to Dr. Linda for possible placement of inpatient rehab Patient medically stable for discharge pending placement 10/28/2021 Patient clinically doing well, breathing quiet, no new complaint. Hemodynamically stable. Possible Septic to [facility] for inpatient rehab pending availability of Covid bit on Saturday Objective - Vital Signs Vital signs: Vital Signs Temp 97.9 F 10/28/21 06:27 Pulse 61 10/28/21 06:27 Resp 17 10/28/21 06:27 BP 128/75 10/28/21 06:27 Pulse Ox 95 10/28/21 06:27 FiO2 Intake & Output 10/27/21 10/28/21 10/28/21 18:59 06:59 18:59 Intake Total 180 Balance 180 Weight 60.328 kg Intake: Oral 180 Other: Voiding Method Diaper Diaper Urinal # Voids 1 2 # Bowel Movements 1 - Exam GENERAL: The patient is alert and oriented x3, not in any acute distress. Well developed, well nourished. HEENT: Pupils are round and equally reacting to light. EOMI. No scleral icterus. No conjunctival pallor. Normocephalic, atraumatic. No pharyngeal erythema. No thyromegaly. CARDIOVASCULAR: S1 and S2 present. No murmurs, rubs, or gallops. PULMONARY: Chest is clear to auscultation, no wheezing or crackles. ABDOMEN: Soft, nontender, nondistended, normoactive bowel sounds. No palpable organomegaly. MUSCULOSKELETAL: No joint swelling or deformity. EXTREMITIES: No cyanosis, clubbing, or pedal edema. NEUROLOGICAL: Gross neurological examination did not reveal any focal deficits. SKIN: No rashes. no petechiae. - Labs CBC & Chem 7: 10/25/21 08:30 10/27/21 05:52 Assessment and Plan Assessment: Metabolic encephalopathy secondary to hypovolemic hyponatremia, improved Hypovolemic hyponatremia Right upper lobe lung mass, suspicious for cancer, patient aware and willing to follow up as an outpatient Comment infection with no pneumonia or hypoxia History of old stroke with right parietal and temporal infarct seen on the CT of the brain. Plan: This is a pleasant 66 years old male who presents with hyponatremia, lung mass. Covid infection. Current patient currently is off IV fluids and kept on sodium chloride tablets. Barrel Filler and pulmonology team on the case. Keep monitoring sodium. Follow-upcalcitonin Patient will need to follow-up skip pit worker Dr. Gibbs upon discharge as well as thoracic surgeon Dr. Cobb and he agrees Labs and medication were reviewed.. Continue same treatment. Continue with symptomatic treatment. Resume home medication. Monitor lytes and vitals. DVT and GI prophylaxis. Further recommendationsas per clinical course of the patient DVT prophylaxis: Subcutaneous Lovenox GI Prophylaxis: Pepcid and px PT/OT: Pending Prognosis is guarded
[2021-10-28] MEDS: PANTOPRAZOLE 40 MG TABLET PO PRN (14:12)
[2021-10-29 07:23] LABS: African American GFR (CKD) >90 (>60 ml/min/1.73 sqM); Anion Gap 7 mmol/L; Blood Urea Nitrogen 9 mg/dL (9-20); Calcium 8.8 mg/dL (8.4-10.2); Carbon Dioxide 20 mmol/L (22-30); Chloride 106 mmol/L (98-107); Glucose 88 mg/dL (74-99); Non-African American GFR(CKD) >90 (>60 ml/min/1.73 sqM); Potassium 4.1 mmol/L (3.5-5.1); Sodium 133 mmol/L (137-145)
--- NOTE | 2021-10-29 09:38 | P.PN ---
Subjective Patient is seen in follow-up for hyponatremia. Sodium level 133. Oral intake has been fair. Denies vomiting or diarrhea. No chest pain or shortness of breath. Hemodynamically stable. No active complaints. Vital signs are stable. General: No acute distress. HEENT: Head exam is unremarkable. LUNGS: Breath sounds decreased. HEART: Rate and Rhythm are regular. ABDOMEN: Soft, no distention. EXTREMITITES: No edema. Objective - Vital Signs Vital signs: Vital Signs Temp 97.3 F L 10/29/21 03:11 Pulse 71 10/29/21 03:11 Resp 16 10/29/21 03:11 BP 143/79 10/29/21 03:11 Pulse Ox 95 10/29/21 03:11 FiO2 Intake & Output 10/28/21 10/29/21 10/29/21 18:59 06:59 18:59 Intake Total 300 Balance 300 Intake: Oral 300 Other: Voiding Method Urinal Urinal # Voids 3 5 # Bowel Movements 0 - Labs CBC & Chem 7: 10/25/21 08:30 10/29/21 06:48 Labs: Abnormal Lab Results - Last 24 Hours (Table) 10/29/21 Range/Units 06:48 Sodium 133 L (137-145) mmol/L Carbon Dioxide 20 L (22-30) mmol/L Creatinine 0.60 L (0.66-1.25) mg/dL Assessment and Plan Plan: Assessment: 1. 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 Also concern for lung cancer. Status post [facility] this admission. Maintain on sodium chloride tab. Sodium level 133. Urine sodium 35 and urine osmolality 389. TSH normal on 10/17/2021. 2. Metabolic acidosis maintained on oral bicarb. 3. Anemia. No active bleeding. 4. Benign hypertension. Controlled. 5. COVID-19 infection. 6. Right upper lobe lung mass. He will be following up with pulmonology outpatient. Plan: Maintain sodium chloride tab. Maintain 40-45 oz fluid restriction per day upon discharge. Encouraged protein intake. Follow-up iron studies. Repeat BMP and magnesium level 2-3 days postdischarge. Follow up outpatient in 1 week. Plan for rehab tomorrow.
[2021-10-29] MEDS: CHOLECALCIFEROL 25 MCG (1000 IU) TABLET PO SCH (10:30)
[2021-10-29] MEDS: amLODIPine 5 MG TAB PO SCH (10:30)
[2021-10-29] MEDS: THIAMINE 100 MG TAB PO SCH ×2 (10:30→17:26)
[2021-10-29] MEDS: ASCORBIC ACID 500 MG TAB PO SCH ×2 (10:30→20:27)
[2021-10-29] MEDS: FERROUS SULFATE 325 MG TAB PO SCH (10:30)
[2021-10-29] MEDS: ZINC SULFATE 220 MG CAP PO SCH (10:30)
[2021-10-29] MEDS: DOCUSATE 100 MG CAP PO SCH (10:30)
[2021-10-29] MEDS: ENOXAPARIN 40 MG/0.4 ML SYRINGE SQ SCH (10:31)
[2021-10-29] MEDS: SODIUM BICARBONATE TAB 650 MG TAB PO SCH ×2 (10:31→20:27)
[2021-10-29] MEDS: SODIUM CHLORIDE TAB 1 GM TAB PO SCH (10:31)
--- NOTE | 2021-10-29 17:38 | P.PN ---
Subjective 66-year-old male patient brought into ER; patient was found on the floor at home by family members. The patient reported he was feeling very weak and he was unable to get up. No focal neurological deficits. The patient's was recently discharged from the hospital 3 days ago after being admitted for altered electrolytes and severe hyponatremia. He was given 3% hypertonic saline and his sodium improved and the patient responded well on the care of nephrology. He had been eating well. His sodium was up to 131 at time of discharge. Denies h aving any nausea vomiting or abdominal pain. No chest pain. No new medications have been started. No diuretics at home. The patient had a lung mass that was highly suspicious for bronchogenic carcinoma noted on a CAT scan of the chest that was done on 10/12/2021. There is a high suspicion for bronchogenic cancer. The repeat chest x-ray during this current admission showed the same finding of a right upper lobe mass. Blood work reveals sodium was down 117 with a BUN of 8 and a creatinine of 0.56 and the patient's chloride level was 89 and a serum bicarb was 19. The white cell count was 6 with a hemoglobin of 8.8. His liver function tests were normal, CPK was 307, his COVID 19 testing was positive, troponin was 0.047 and blood sugar was at 76. 10/22/2021, patient is feeling better. Sodium level is improved and it's up to 127; white cell cause of 4.7 with hemoglobin of 8.9 and a platelet count of 268. Sodium level is up to 127 with a potassium level of 3.2.. PT/OT has been consulted to evaluate for debility and discharge planning 10/23/2021, this is the first day I started taking care of the patient This is a pleasant 66 years old male who presents initially because of altered mental status secondary to hypovolemia hyponatremia and he was treated with IV fluids and currently improved. Also has evidence of Covid infection and right upper lobe lung mass for which patient is aware of. Patient today is awake and alert but he has some dyspnea especially with talking. He is hemodynamically stable. Improved 128. Fluids were stopped and he was kept on sodium tablets. Patient told me he is aware about his lung mass and that he needs to get a biopsy for its and he told me he will follow-up with Dr. Cobb for this purpose. Informed he needs to follow up with general repair mechanic Dr. Garciaand he agrees and willing to do so as he told 10/25/2011 Patient still short of breath when talking, he denies chest pain or significant coughing. He is saturating 94-97% on room air, mildly tachypneic while at rest. Chest x-ray Relatively similar exam with right-sided nodules and background COPD. There is some mild patchy peripheral opacity also noted that could reflect COVID pneumonia. Labs from today are still pending. He remains on sodium tablets. He is off IV fluids. Repeat pro-calcitonin is pending 10/25/2021 Patient breathing status is a stable, is still slightly tachypneic which is expected with his lung mass. I discussed the case with pulmonary team and they cleared him for discharge today. Both pulmonary team and the patient are aware with his appointment with Dr. Garcia on for addressing his lung mass. Patient is aware it may be cancerous. Sodium improved to 131 sodium tablets lower to once a day. Patient medically stable for discharge, he was cleared by both nephrology and pulmonary team ECF is recommended for him and patient agreeable pending placement. Sodium in the morning 10/26/2021 Patient clinically looks the same regarding his breathing pattern however he feels more weak today without further specification, no other symptoms. His sodium today went down 131 down to 129, he received 1 dose of samsca and will check sodium again in the morning Patient aware of the need to follow up with Dr. Garcia for his lung mass on 11/09 Consult was placed today to Dr. Linda for possible placement of inpatient rehab Patient medically stable for discharge pending placement 10/28/2021 Patient clinically doing well, breathing quiet, no new complaint. Hemodynamically stable. Possible Septic to [facility] for inpatient rehab pending availability of Covid bit on Saturday10/29/2021 Patient clinically doing well Effects comfortable with no new symptoms Sodium 133, hematin and sodium tablets once daily and fluid restriction, Patient pending placement Objective - Vital Signs Vital signs: Vital Signs Temp 97.3 F L 10/29/21 03:11 Pulse 71 10/29/21 03:11 Resp 16 10/29/21 03:11 BP 143/79 10/29/21 03:11 Pulse Ox 95 10/29/21 03:11 FiO2 Intake & Output 10/28/21 10/29/21 10/29/21 18:59 06:59 18:59 Intake Total 300 Balance 300 Intake: Oral 300 Other: Voiding Method Urinal Urinal Urinal # Voids 3 5 # Bowel Movements 0 - Exam GENERAL: The patient is alert and oriented x3, not in any acute distress. Well developed, well nourished. HEENT: Pupils are round and equally reacting to light. EOMI. No scleral icterus. No conjunctival pallor. Normocephalic, atraumatic. No pharyngeal erythema. No thyromegaly. CARDIOVASCULAR: S1 and S2 present. No murmurs, rubs, or gallops. PULMONARY: Chest is clear to auscultation, no wheezing or crackles. ABDOMEN: Soft, nontender, nondistended, normoactive bowel sounds. No palpable organomegaly. MUSCULOSKELETAL: No joint swelling or deformity. EXTREMITIES: No cyanosis, clubbing, or pedal edema. NEUROLOGICAL: Gross neurological examination did not reveal any focal deficits. SKIN: No rashes. no petechiae. - Labs CBC & Chem 7: 10/25/21 08:30 10/29/21 06:48 Labs: Abnormal Lab Results - Last 24 Hours (Table) 10/29/21 Range/Units 06:48 Sodium 133 L (137-145) mmol/L Carbon Dioxide 20 L (22-30) mmol/L Creatinine 0.60 L (0.66-1.25) mg/dL Assessment and Plan Assessment: Metabolic encephalopathy secondary to hypovolemic hyponatremia, improved Hypovolemic hyponatremia Right upper lobe lung mass, suspicious for cancer, patient aware and willing to follow up as an outpatient Comment infection with no pneumonia or hypoxia History of old stroke with right parietal and temporal infarct seen on the CT of the brain. Plan: This is a pleasant 66 years old male who presents with hyponatremia, lung mass. Covid infection. Current patient currently is off IV fluids and kept on sodium chloride tablets. Restrictive Preparation Operator and pulmonology team on the case. Keep monitoring sodium. Follow-upcalcitonin Patient will need to follow-up general repair mechanic Dr. Gibbs upon discharge as well as thoracic surgeon Dr. Cobb and he agrees Labs and medication were reviewed.. Continue same treatment. Continue with symptomatic treatment. Resume home medication. Monitor lytes and vitals. DVT and GI prophylaxis. Further recommendationsas per clinical course of the patient DVT prophylaxis: Subcutaneous Lovenox GI Prophylaxis: Pepcid and px PT/OT: Pending Prognosis is guarded
[2021-10-29 23:31] LABS: % Iron Saturation 7.94 (15.00-50.00)
[2021-10-30] MEDS: THIAMINE 100 MG TAB PO SCH (08:44)
[2021-10-30] MEDS: ENOXAPARIN 40 MG/0.4 ML SYRINGE SQ SCH (08:44)
[2021-10-30] MEDS: FERROUS SULFATE 325 MG TAB PO SCH (08:44)
[2021-10-30] MEDS: CHOLECALCIFEROL 25 MCG (1000 IU) TABLET PO SCH (08:45)
[2021-10-30] MEDS: SODIUM BICARBONATE TAB 650 MG TAB PO SCH (08:45)
[2021-10-30] MEDS: ZINC SULFATE 220 MG CAP PO SCH (08:45)
[2021-10-30] MEDS: amLODIPine 5 MG TAB PO SCH (08:45)
[2021-10-30] MEDS: ASCORBIC ACID 500 MG TAB PO SCH (08:45)
[2021-10-30] MEDS: DOCUSATE 100 MG CAP PO SCH (08:45)
[2021-10-30] MEDS: SODIUM CHLORIDE TAB 1 GM TAB PO SCH (08:46)
--- NOTE | 2021-10-30 09:57 | P.PN ---
Subjective Patient is seen in follow-up for hyponatremia. Sodium level 133 yesterday. Oral intake has been fair. Denies vomiting or diarrhea. No chest pain or shortness of breath. Hemodynamically stable. No active complaints. Plan for discharge to rehab today. Vital signs are stable. General: No acute distress. HEENT: Head exam is unremarkable. LUNGS: Breath sounds decreased. HEART: Rate and Rhythm are regular. ABDOMEN: Soft, no distention. EXTREMITITES: No edema. Objective - Vital Signs Vital signs: Vital Signs Temp 98.2 F 10/30/21 05:48 Pulse 68 10/30/21 05:48 Resp 16 10/30/21 05:48 BP 139/78 10/30/21 05:48 Pulse Ox 93 L 10/30/21 05:48 FiO2 Intake & Output 10/29/21 10/30/21 10/30/21 18:59 06:59 18:59 Intake Total 200 Balance 200 Intake: Oral 200 Other: Voiding Method Urinal Urinal # Voids 2 3 # Bowel Movements 1 - Labs CBC & Chem 7: 10/25/21 08:30 10/29/21 06:48 Labs: Abnormal Lab Results - Last 24 Hours (Table) 10/27/21 Range/Units 05:52 Iron 20 L (65-175) ug/dL % Saturation 7.94 L (15.00-50.00) Transferrin 180.0 L (204.0-354.0) mg/dL Assessment and Plan Plan: Assessment: 1. 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 Also concern for lung cancer. Status post [facility] this admission. Maintain on sodium chloride tab. Sodium level 133. Urine sodium 35 and urine osmolality 389. TSH normal on 10/17/2021. Sodium level 133 yesterday. 2. Metabolic acidosis maintained on oral bicarb. 3. Anemia. No active bleeding. Iron deficiency noted. 4. Benign hypertension. Controlled. 5. COVID-19 infection. 6. Right upper lobe lung mass. He will be following up with pulmonology outpatient. Plan: Maintain sodium chloride tab. Maintain 40-45 oz fluid restriction per day upon discharge. Encouraged protein intake. I will give him a dose of IV iron today. Repeat BMP and magnesium level 2-3 days postdischarge. Follow up outpatient in 1 week. Plan for discharge to rehab today.
--- NOTE | 2021-10-30 10:02 | P.DS ---
Providers Date of admission: 10/21/21 01:08 Expected date of discharge: 10/30/21 Attending physician: Corwin Santoyo Consults: 10/21/21 08:54 Consult Physician Routine Consulting Provider: Becca Radford Consult Reason/Comments: low sodium Do you want consulting provider notified?: Yes 10/21/21 11:26 Consult Physician Routine Consulting Provider: Harmony Chatman Consult Reason/Comments: COVID-19 infection Do you want consulting provider notified?: Yes 10/26/21 09:24 Consult Physician Routine Consulting Provider: Parish Bustamante Consult Reason/Comments: rehab Do you want consulting provider notified?: Yes Primary care physician: See Plata Hospital Course: Final diagnosis Metabolic encephalopathy secondary to hypovolemic hyponatremia, improved Hypovolemic hyponatremia Right upper lobe lung mass, suspicious for cancer, patient aware and willing to follow up as an outpatient COVID-19 infection with no pneumonia or hypoxia History of old stroke with right parietal and temporal infarct seen on the CT of the brain GI prophylaxis DVT prophylaxis No code Discharge disposition Patient is being discharged in a stable condition with guarded prognosis to [facility] inpatient rehab for continued PT/OT therapy. Patient will follow-up with Dr. Plata in the outpatient setting upon discharge. Patient is to elope nephrology in one week and also pulmonary in the outpatient setting as scheduled. Total time taken is greater than 35 minutes. Hospital course This is a 66-year-old male who was recently admitted with feeling very weak found on the floor and found to have hyponatremia with multiple medical consultations following. Patient was followed by nephrology and sodium was corrected and patient is maintained on sodium bicarb along with sodium chloride tablets and recommended close outpatient follow-up with repeat labs of BMP and magnesium is 2-3 days. Sodium today is 133. Patient also seen and evaluated by pulmonary and will follow-up in the outpatient setting as there was a lung mass that was highly suspicious for bronchogenic carcinoma on CAT scan. Patient also was found to be COVID-19 positive. Patient's vital signs are stable currently and patient has been accepted at [facility] inpatient rehab. Currently no reports of chest pain, shortness of breath, or palpitations. Patient is afebrile. No reports of nausea or vomiting and patient is tolerating diet. Patient will be going to [facility] today. Physical exam: Gen: This is a 66-year-old male awake. Temp is 98.2F, pulse is 68, respirations are 16, blood pressure is 139/78, oxygen saturation is 93% on room air HEENT: Head is atraumatic, normocephalic. Pupils equal, round. Sclerae is anicteric. NECK: Supple. No JVD. No lymphadenopathy. No thyromegaly. LUNGS: Clear to auscultation. No wheezes or rhonchi. No intercostal retractions. HEART: Regular rate and rhythm. No murmur. ABDOMEN: Soft. Bowel sounds are present. No masses. No tenderness. EXTREMITIES: No pedal edema. No calf tenderness. NEUROLOGICAL: Patient is awake, alert and oriented x3. Cranial nerves 2 through 12 are grossly intact. Please refer to medication reconciliation sheet for a list of medications. The impression and plan of care has been dictated by Khushbu Nelson, Nurse Practitioner as directed. Dr. Lisette MD I have performed a history and examination and MDM of this patient, discussed the same with the dictator, and agree with the dictator's assessment and plan as written ,documented as a scribe. Based on total visit time, I have performed more than 50% of the visit. Patient Condition at Discharge: Poor Plan - Discharge Summary Discharge Rx Participant: No New Discharge Prescriptions: New Enoxaparin [Lovenox] 40 mg SQ DAILY each Cholecalciferol [Vitamin D3 (25 Mcg = 1000 Iu)] 50 mcg PO DAILY tab Ascorbic Acid [Vitamin C] 500 mg PO BID tab Continue diphenhydrAMINE [Benadryl] 25 - 50 mg PO HS PRN PRN Reason: Insomnia amLODIPine [Norvasc] 5 mg PO DAILY #30 tab Thiamine [Vitamin B-1] 100 mg PO BID-W/MEALS #60 tab Sodium Bicarbonate Tab 650 mg PO BID #60 tab Sodium Chloride Tab 1 gm PO DAILY #30 tab Omeprazole Magnesium [PriLOSEC OTC] 20 mg PO DAILY PRN PRN Reason: Heartburn Famotidine [Pepcid] 20 mg PO DAILY PRN PRN Reason: Heartburn Acetaminophen Tab [Tylenol] 1,000 mg PO Q6H PRN PRN Reason: Fever And/ Or Pain Docusate [Colace] 100 mg PO DAILY #30 capsule Ferrous Sulfate [Feosol] 325 mg PO DAILY #30 tab Discontinued cloNIDine HCL [Catapres] 0.1 mg PO BID Discharge Medication List Omeprazole Magnesium [PriLOSEC OTC] 20 mg PO DAILY PRN 06/14/21 [History] Acetaminophen Tab [Tylenol] 1,000 mg PO Q6H PRN 10/11/21 [History] Famotidine [Pepcid] 20 mg PO DAILY PRN 10/11/21 [History] diphenhydrAMINE [Benadryl] 25 - 50 mg PO HS PRN 10/11/21 [History] Docusate [Colace] 100 mg PO DAILY #30 capsule 10/16/21 [Rx] Ferrous Sulfate [Feosol] 325 mg PO DAILY #30 tab 10/16/21 [Rx] Thiamine [Vitamin B-1] 100 mg PO BID-W/MEALS #60 tab 10/16/21 [Rx] amLODIPine [Norvasc] 5 mg PO DAILY #30 tab 10/16/21 [Rx] Sodium Bicarbonate Tab 650 mg PO BID #60 tab 10/17/21 [Rx] Sodium Chloride Tab 1 gm PO DAILY #30 tab 10/17/21 [Rx] Ascorbic Acid [Vitamin C] 500 mg PO BID tab 10/27/21 [Rx] Cholecalciferol [Vitamin D3 (25 Mcg = 1000 Iu)] 50 mcg PO DAILY tab 10/27/21 [Rx] Enoxaparin [Lovenox] 40 mg SQ DAILY each 10/27/21 [Rx] Follow up Appointment(s)/Referral(s): Becca Radford MD [STAFF PHYSICIAN] - 11/07/21 1:20 pm See Plata III, MD [Primary Care Provider] - 1-2 days (office busy at time of discharge. Please call to schedule appointment ) Mann Garcia DO [Doctor of Osteopathic Medicine] - 11/09/21 2:00 pm Ambulatory/Diagnostic Orders: Basic Metabolic Panel [LAB.AMB] Time Frame: 3 Days, Location: None Selected Activity/Diet/Wound Care/Special Instructions: Patient is going to [facility] inpatient rehab Heart healthy diet. Fluid restriction 1200 mL per day per clinical account specialist recommendation ((Maintain 40-45 oz fluid restriction per day upon discharge)) Repeat BMP and magnesium in 2-3 days and follow-up with nephrology in one week Follow-up with pulmonary outpatient Continue heart healthy diet with soft foods Activity as tolerated Discharge Disposition: TRANSFER TO SNF/ECF
[2021-10-30] MEDS ORDERED: SODIUM FERRIC GLUCONAT-SUCROSE 125 MG in SODIUM CHLORIDE 0.9% 100 ML IVPB ONE (10:30)
[2021-10-30 10:41] VITALS: BP 123/73; PULSE 71; RESP 17; TEMP 97.8
== END 2021-10-30 13:14 | DRG 643 ==
LOC: EC 21:34 → 3SCARD 10-21 01:08 → 4SSUR 10-25 19:09
PROVIDERS: ADMIT Hospitalist; ATTEND Hospitalist
DX: E22.2 Syndrome of inappropriate secretion of antidiuretic hormone (principal); G93.41 Metabolic encephalopathy; U07.1 COVID-19; C34.11 Malignant neoplasm of upper lobe, right bronchus or lung; E87.2 Acidosis; R64 Cachexia; R53.1 Weakness; E86.1 Hypovolemia; W18.30XA Fall on same level, unspecified, initial encounter; Y92.019 Unspecified place in single-family (private) house as the place of occurrence of the external cause; E61.1 Iron deficiency; E27.8 Other specified disorders of adrenal gland; K21.9 Gastro-esophageal reflux disease without esophagitis; F10.20 Alcohol dependence, uncomplicated; D64.9 Anemia, unspecified; F17.210 Nicotine dependence, cigarettes, uncomplicated; I10 Essential (primary) hypertension; R49.0 Dysphonia; J38.00 Paralysis of vocal cords and larynx, unspecified; J44.9 Chronic obstructive pulmonary disease, unspecified; R63.0 Anorexia; Z68.20 Body mass index [BMI] 20.0-20.9, adult; K29.50 Unspecified chronic gastritis without bleeding; Z66 Do not resuscitate; R53.81 Other malaise; Z86.73 Personal history of transient ischemic attack (TIA), and cerebral infarction without residual deficits; Z86.010 Personal history of colon polyps; Z63.5 Disruption of family by separation and divorce; Z91.19 Patient's noncompliance with other medical treatment and regimen; Z98.890 Other specified postprocedural states; Z71.3 Dietary counseling and surveillance; Z85.828 Personal history of other malignant neoplasm of skin; Z71.6 Tobacco abuse counseling; Z71.41 Alcohol abuse counseling and surveillance of alcoholic; Z79.899 Other long term (current) drug therapy; Z82.49 Family history of ischemic heart disease and other diseases of the circulatory system
CPT/HCPCS: 36415; 70450; 71045; 72125; 80048; 80051; 80053; 80320; 81003; 82140; 82550; 82553; 82728; 83540; 83550; 83615; 83735; 83935; 84145; 84295; 84300; 84484; 85025; 85379; 85610; 85730; 86140; 87635; 93005; 94760; 99285

== ENCOUNTER 2022-01-16 20:00 | Inpatient (IN) | payer MEDICARE ==
[2022-01-16] MEDS ORDERED: SODIUM CHLORIDE 0.9% 1,000 ML IV STA (20:08)
[2022-01-16] MEDS ORDERED: MORPHINE SULFATE 4 MG/ML SYRINGE IV STA (20:08)
[2022-01-16] MEDS ORDERED: ONDANSETRON 4 MG/2 ML VIAL IVP STA (20:09)
[2022-01-16] MEDS ORDERED: DIPH,PERTUS(ACELL)TETVAC-LF 0.5 ML VIAL IM ONE (20:13)
--- NOTE | 2022-01-16 20:16 | ED ---
Fall HPI - General Stated Complaint: Fall, Weakness Time Seen by Provider: 01/16/22 20:03 Source: patient, EMS - History of Present Illness Initial Comments: This is a pleasant 67-year-old male who arrives via EMS after falling in his kitchen. Patient states he was putting some stuff away and his legs just seem to give out. Patient does complain of recurrent and chronic generalized weakness involving his legs. Patient states he usually uses a walker but did not have one at that time. Patient states he landed on his kitchen floor and injured his left shoulder. There was no head or neck injury. He denies any headache. He denies any neck pain. No thoracic or lumbar spine pain. Patient denying any pain to other extremities other than the left shoulder. Did sustain a skin tear to the left hand. Patient states this happened previously and he was found to have low sodium. According to EMS patient had atrial fibrillation on the monitor but has no history of this. Patient denying any chest pain or palpitations. Patient had no other preceding symptomology. Fall occurred just prior to arrival. Patient states the left shoulder is exacerbated by movement and palpation. Alleviated by rest. No radiation. Patient also noted to be hypertensive on monitor per EMS GEN. weakness No headache, no fever or chills, no changes in vision or hearing, no sore throat or difficulty with speech, no neck pain, no chest pain or shortness of breath, no abdominal pain, no nausea or vomiting, no changes in urination or bowel movements, no numbness or tingling, no skin rashes or lesions. Past medical, surgical, social, and family history reviewed. MD Complaint: fall - Related Data Home Medications Medication Instructions Recorded Confirmed Omeprazole Magnesium [PriLOSEC OTC] 20 mg PO DAILY PRN 06/14/21 10/20/21 Acetaminophen Tab [Tylenol] 1,000 mg PO Q6H PRN 10/11/21 10/20/21 Famotidine [Pepcid] 20 mg PO DAILY PRN 10/11/21 10/20/21 diphenhydrAMINE [Benadryl] 25 - 50 mg PO HS PRN 10/11/21 10/20/21 Previous Rx's Medication Instructions Recorded Docusate [Colace] 100 mg PO DAILY #30 capsule 10/16/21 Ferrous Sulfate [Feosol] 325 mg PO DAILY #30 tab 10/16/21 Thiamine [Vitamin B-1] 100 mg PO BID-W/MEALS #60 tab 10/16/21 amLODIPine [Norvasc] 5 mg PO DAILY #30 tab 10/16/21 Sodium Bicarbonate Tab 650 mg PO BID #60 tab 10/17/21 Sodium Chloride Tab 1 gm PO DAILY #30 tab 10/17/21 Ascorbic Acid [Vitamin C] 500 mg PO BID tab 10/27/21 Cholecalciferol [Vitamin D3 (25 50 mcg PO DAILY tab 10/27/21 Mcg = 1000 Iu)] Enoxaparin [Lovenox] 40 mg SQ DAILY each 10/27/21 Allergies Allergy/AdvReac Type Severity Reaction Status Date / Time No Known Allergies Allergy Verified 01/16/22 21:46 Review of Systems ROS Statement: Those systems with pertinent positive or pertinent negative responses have been documented in the HPI. ROS Other: All systems not noted in ROS Statement are negative. Past Medical History Past Medical History: Cancer, GERD/Reflux, Hypertension Additional Past Medical History / Comment(s): paralyzed vocal cord, SKIN CANCER(FACE), mass in lungs History of Any Multi-Drug Resistant Organisms: None Reported Past Surgical History: Orthopedic Surgery Additional Past Surgical History / Comment(s): triple endoscopy, LT KNEE SCOPE, LT KNEE MENISCUS SX Past Anesthesia/Blood Transfusion Reactions: No Reported Reaction Additional Past Anesthesia/Blood Transfusion Reaction / Comment(s): . Past Psychological History: No Psychological Hx Reported Smoking Status: Current every day smoker Past Alcohol Use History: Daily Past Drug Use History: None Reported - Past Family History Father Family Medical History: Congestive Heart Failure (CHF), Myocardial Infarction ([place]) Mother Family Medical History: No Reported History Additional Family Medical History / Comment(s): MOM IS IN GOOD HEALTH AT AGE 96 General Exam - General Exam Comments Initial Comments: She does not appear to be in any significant distress. Does not appear to be ill or toxic. No focal neurologic deficits. Alert and oriented 4. Cranial nerves II through XII are intact. General appearance: alert, in no apparent distress Head exam: Present: atraumatic, normocephalic, normal inspection Eye exam: Present: normal appearance, PERRL, EOMI. Absent: scleral icterus, conjunctival injection, periorbital swelling ENT exam: Present: normal exam, normal oropharynx, mucous membranes moist, normal external ear exam. Absent: mucous membranes dry Neck exam: Present: normal inspection. Absent: tenderness, meningismus, lymphadenopathy Respiratory exam: Present: normal lung sounds bilaterally. Absent: respiratory distress, wheezes, rales, rhonchi, stridor, chest wall tenderness, accessory muscle use Cardiovascular Exam: Present: regular rate, normal rhythm, normal heart sounds. Absent: systolic murmur, diastolic murmur, rubs, gallop, clicks GI/Abdominal exam: Present: soft, normal bowel sounds. Absent: distended, tenderness, guarding, rebound, rigid Extremities exam: Present: normal inspection, full ROM, normal capillary refill, other (No other injuries noted in addition to the left shoulder. Other than the skin tear on the dorsum left hand. Full range of motion all major joints. Full muscle strength on major muscle groups.). Absent: tenderness, pedal edema, joint swelling, calf tenderness Left Shoulder Exam: Present: normal inspection, tenderness (Tender to the subacromial area and proximal humerus area, no break in skin integrity. No crepitus. Distal neurovascular status intact). Absent: full ROM (Limited by pain), swelling, deformity, crepitus, dislocation, erythema, tenderness over AC joint Upper Arm exam: Present: normal inspection, tenderness. Absent: swelling, abrasion, laceration, ecchymosis, deformity, crepidus, dislocation, erythema, other Elbow exam: Present: normal inspection, full ROM. Absent: tenderness Forearm Wrist exam: Present: normal inspection, full ROM. Absent: tenderness Hand Wrist exam: Present: full ROM, abrasion (Superficial skin tear to dorsum of left hand which will not require repair.). Absent: tenderness, swelling Neuro motor exam: Present: wrist extension intact, thumb opposition intact, thumb IP flexion intact, thumb adduction intact, fingers 2-5 abduction intact Neurosensory exam: Present: radial nerve intact, ulnar nerve intact, median nerve intact Vascular: Present: normal capillary refill. Absent: vascular compromise, Pallo, pulse deficit radial art, pulse deficit ulnar art Back exam: Present: normal inspection Neurological exam: Present: alert, oriented X3, CN II-XII intact Psychiatric exam: Present: normal affect, normal mood Skin exam: Present: warm, dry, intact, normal color. Absent: rash Course Vital Signs 01/16/22 01/16/22 01/16/22 20:10 21:36 22:19 Temperature 97.8 F Pulse Rate 84 98 100 Respiratory 16 16 16 Rate Blood Pressure 182/98 175/95 155/97 O2 Sat by Pulse 95 95 95 Oximetry 01/16/22 23:25 Temperature Pulse Rate 98 Respiratory 16 Rate Blood Pressure 126/75 O2 Sat by Pulse 95 Oximetry - Reevaluation(s) Reevaluation #1: 01/16/22 21:19 Patient reevaluated and is improved after pain control. Sodium noted below 124. Potassium hemolyzed at 5.5, repeat, glucose 64. One amp of D50 given. We'll have the patient eat. Patient's bilirubin is 2.1 and AST is 65. He has never had elevations of these on previous studies. This is of unknown consequences the patient has no abdominal tenderness. - Consultations Consultation #1: Case discussed with from [facility] group. It se parates admission of the patient. Medical Decision Making - Medical Decision Making Patient had a fall after stating that his legs felt weak. There was no focal neurologic deficit. Patient not on blood thinners. Patient noted to have atrial fibrillation on jira administrator EMS. Of course this could cause the patient's pain. Patient also has a history of electrolyte disturbance, mainly hyponatremia. Patient did not have any head or neck injury. I believe computed tomography scan is warranted at this time. Neurologically intact. - Lab Data Result diagrams: 01/16/22 20:14 01/16/22 22:19 Lab Results 01/16/22 01/16/22 01/16/22 Range/Units 20:14 20:14 20:14 WBC 10.8 H (3.8-10.6) k/uL RBC 4.53 (4.30-5.90) m/uL Hgb 12.2 L (13.0-17.5) gm/dL Hct 37.4 L (39.0-53.0) % MCV 82.5 (80.0-100.0) fL MCH 27.0 (25.0-35.0) pg MCHC 32.8 (31.0-37.0) g/dL RDW 17.5 H (11.5-15.5) % Plt Count 331 (150-450) k/uL MPV 9.3 Neutrophils % 83 % Lymphocytes % 9 % Monocytes % 6 % Eosinophils % 1 % Basophils % 1 % Neutrophils # 8.9 H (1.3-7.7) k/uL Lymphocytes # 1.0 (1.0-4.8) k/uL Monocytes # 0.6 (0-1.0) k/uL Eosinophils # 0.1 (0-0.7) k/uL Basophils # 0.1 (0-0.2) k/uL Hypochromasia Slight Anisocytosis Slight Microcytosis Slight PT 10.6 (9.0-12.0) sec INR 1.0 (<1.2) APTT 25.8 (22.0-30.0) sec Sodium 124 L (137-145) mmol/L Potassium 5.5 H (3.5-5.1) mmol/L Chloride 92 L (98-107) mmol/L Carbon Dioxide 17 L (22-30) mmol/L Anion Gap 15 mmol/L BUN 9 (9-20) mg/dL Creatinine 0.71 (0.66-1.25) mg/dL Est GFR (CKD-EPI)AfAm >90 (>60 ml/min/1.73 sqM) Est GFR (CKD-EPI)NonAf >90 (>60 ml/min/1.73 sqM) Glucose 64 L (74-99) mg/dL Calcium 9.0 (8.4-10.2) mg/dL Phosphorus 3.5 (2.5-4.5) mg/dL Magnesium 1.6 (1.6-2.3) mg/dL Total Bilirubin 2.1 H (0.2-1.3) mg/dL AST 65 H (17-59) U/L ALT 15 (4-49) U/L Alkaline Phosphatase 135 H (38-126) U/L Troponin I (0.000-0.034) ng/mL Total Protein 8.7 H (6.3-8.2) g/dL Albumin 4.3 (3.5-5.0) g/dL TSH 0.857 (0.465-4.680) mIU/L Urine Color Urine Appearance (Clear) Urine pH (5.0-8.0) Ur Specific [place] (1.001-1.035) Urine Protein (Negative) Urine Glucose (UA) (Negative) Urine Ketones (Negative) Urine Blood (Negative) Urine Nitrite (Negative) Urine Bilirubin (Negative) Urine Urobilinogen (<2.0) mg/dL Ur Leukocyte Esterase (Negative) 01/16/22 01/16/22 Range/Units 20:14 21:36 WBC (3.8-10.6) k/uL RBC (4.30-5.90) m/uL Hgb (13.0-17.5) gm/dL Hct (39.0-53.0) % MCV (80.0-100.0) fL MCH (25.0-35.0) pg MCHC (31.0-37.0) g/dL RDW (11.5-15.5) % Plt Count (150-450) k/uL MPV Neutrophils % % Lymphocytes % % Monocytes % % Eosinophils % % Basophils % % Neutrophils # (1.3-7.7) k/uL Lymphocytes # (1.0-4.8) k/uL Monocytes # (0-1.0) k/uL Eosinophils # (0-0.7) k/uL Basophils # (0-0.2) k/uL Hypochromasia Anisocytosis Microcytosis PT (9.0-12.0) sec INR (<1.2) APTT (22.0-30.0) sec Sodium (137-145) mmol/L Potassium (3.5-5.1) mmol/L Chloride (98-107) mmol/L Carbon Dioxide (22-30) mmol/L Anion Gap mmol/L BUN (9-20) mg/dL Creatinine (0.66-1.25) mg/dL Est GFR (CKD-EPI)AfAm (>60 ml/min/1.73 sqM) Est GFR (CKD-EPI)NonAf (>60 ml/min/1.73 sqM) Glucose (74-99) mg/dL Calcium (8.4-10.2) mg/dL Phosphorus (2.5-4.5) mg/dL Magnesium (1.6-2.3) mg/dL Total Bilirubin (0.2-1.3) mg/dL AST (17-59) U/L ALT (4-49) U/L Alkaline Phosphatase (38-126) U/L Troponin I 0.019 (0.000-0.034) ng/mL Total Protein (6.3-8.2) g/dL Albumin (3.5-5.0) g/dL TSH (0.465-4.680) mIU/L Urine Color Yellow Urine Appearance Clear (Clear) Urine pH 6.5 (5.0-8.0) Ur Specific [place] 1.007 (1.001-1.035) Urine Protein Trace H (Negative) Urine Glucose (UA) Negative (Negative) Urine Ketones Negative (Negative) Urine Blood Negative (Negative) Urine Nitrite Negative (Negative) Urine Bilirubin Negative (Negative) Urine Urobilinogen <2.0 (<2.0) mg/dL Ur Leukocyte Esterase Negative (Negative) - EKG Data -: EKG Interpreted by Me (Review by the ED attending physician) EKG shows normal: sinus rhythm Rate: normal EKG Comments: EKG done at 2013 shows sinus rhythm with occasional PACs. No evidence of acute ST or T-wave changes. Normal intervals. Normal axis. Normal QRS morphology. Disposition Clinical Impression: Fall, Closed fracture of proximal end of left humerus, Hyponatremia, Uncontrolled hypertension, Hypoglycemia Narrative: Mild elevation of AST with bilirubin 2.1 of undetermined significance. Potassium hemolyzed at 5.5. Disposition: ADMITTED IP TO THIS HOSP Condition: Fair Is patient prescribed a controlled substance at d/c from ED?: No Time of Disposition: 21:22 Decision to Admit Reason: Admit from EC Decision Time: 21:22
[2022-01-16 20:45] LABS: Partial Thromboplastin Time 25.8 sec (22.0-30.0); Prothrombin Time 10.6 sec (9.0-12.0)
[2022-01-16 20:47] LABS: ALT 15 U/L (4-49); AST 65 U/L (17-59); African American GFR (CKD) >90 (>60 ml/min/1.73 sqM); Albumin 4.3 g/dL (3.5-5.0); Alkaline Phosphatase 135 U/L (38-126); Anion Gap 15 mmol/L; Blood Urea Nitrogen 9 mg/dL (9-20); Carbon Dioxide 17 mmol/L (22-30); Chloride 92 mmol/L (98-107); Glucose 64 mg/dL (74-99); Magnesium 1.6 mg/dL (1.6-2.3); Non-African American GFR(CKD) >90 (>60 ml/min/1.73 sqM); Phosphorus 3.5 mg/dL (2.5-4.5); Sodium 124 mmol/L (137-145); Total Bilirubin 2.1 mg/dL (0.2-1.3); Total Protein 8.7 g/dL (6.3-8.2)
[2022-01-16 20:49] LABS: Potassium 5.5 mmol/L (3.5-5.1)
[2022-01-16 20:51] LABS: Anisocytosis Slight; Basophils # (A) 0.1 k/uL (0-0.2); Basophils % (A) 1 %; Eosinophils # (A) 0.1 k/uL (0-0.7); Eosinophils % (A) 1 %; HCT 37.4 % (39.0-53.0); HGB 12.2 gm/dL (13.0-17.5); Hypochromasia Slight; Lymphocytes % (A) 9 %; MCHC 32.8 g/dL (31.0-37.0); MCV 82.5 fL (80.0-100.0); Mean Platelet Volume 9.3; Microcytosis Slight; Monocytes # (A) 0.6 k/uL (0-1.0); Monocytes % (A) 6 %; Neutrophils # (A) 8.9 k/uL (1.3-7.7); Neutrophils % (A) 83 %; Platelet Count 331 k/uL (150-450); RBC 4.53 m/uL (4.30-5.90); RDW 17.5 % (11.5-15.5); WBC 10.8 k/uL (3.8-10.6)
[2022-01-16] MEDS: LIDOCAINE 1% INJ 10MG/ML (20 ML MDV) SQ STA (20:53)
[2022-01-16] MEDS ORDERED: DEXTROSE 50% SYRINGE 50 ML IVP STA (21:18)
--- NOTE | 2022-01-16 21:33 | XR ---
EXAMINATION TYPE: XR shoulder complete LT, XR humerus LT DATE OF EXAM: 01/16/2022 8:45 PM INDICATION: Patient age:Male; 67 years old; Reason for study: Left shoulder injury/pain; COMPARISON: CT chest 10/12/2021. TECHNIQUE: The left shoulder was examined in AP, internally rotated and scapular Y projections. Left humerus was examined in frontal and lateral views. FINDINGS: Proximal left humerus fracture. No evidence of dislocation. No intra-articular extension. The remaind er of the osseous structures are intact. The lung appears intact. Calcific densities within the axill a are consistent with atherosclerotic calcifications on prior CT chest 10/12/2021. The distal left cla vicle demonstrates a cortical step-off PET scan prior's. IMPRESSION: 1. Proximal left humerus fracture with displacement. 2. Left distal clavicle deformity suspicious for prior fracture, seen on multiple priors.
[2022-01-16 21:48] LABS: Appearance,Urine Clear (Clear); Bilirubin,Urine Negative (Negative); Blood,Urine Negative (Negative); Color,Urine Yellow; Glucose,Urine (UA) Negative (Negative); Ketones,Urine Negative (Negative); Leukocyte Esterase,Urine Negative (Negative); Nitrite,Urine Negative (Negative); PH, Urine 6.5 (5.0-8.0); Protein,Urine Trace (Negative); Specific Gravity,Urine 1.007 (1.001-1.035); Urobilinogen,Urine <2.0 mg/dL (<2.0)
[2022-01-16] MEDS ORDERED: ONDANSETRON 4 MG/2 ML VIAL IVP PRN (21:50)
[2022-01-16] MEDS ORDERED: DOCUSATE 100 MG CAP PO PRN (21:50)
[2022-01-16] MEDS ORDERED: NALOXONE 0.4 MG/ML 1 ML VIAL IV PRN (21:50)
[2022-01-16] MEDS ORDERED: ACETAMINOPHEN TAB 325 MG TAB PO PRN (21:50)
[2022-01-16 22:21] LABS: Glucose,Whole Blood 201 mg/dL (70-110)
--- NOTE | 2022-01-16 23:18 | XR ---
EXAMINATION TYPE: XR chest 1V portable DATE OF EXAM: 01/16/2022 COMPARISON: 10/24/2021 HISTORY: Short of breath. Weakness TECHNIQUE: Single view FINDINGS: Heart is fairly normal. There is 3.8 cm rounded masslike density in the right upper lobe wh ich is increased in size compared to last exam and consistent with tumor. No heart failure seen. Ther e are no hilar masses. There are chest leads. There are some interstitial infiltrates in the lung bas es bilaterally. IMPRESSION: Right upper lobe mass increased in size. Interstitial basilar pulmonary infiltrates and s ubsegmental atelectasis are increased compared to old exam.
[2022-01-16] MEDS: MORPHINE SULFATE 4 MG/ML SYRINGE IV PRN (23:22)
[2022-01-17] MEDS: HEPARIN SODIUM,PORCINE/PF 5,000 UNIT/0.5 ML SYRINGE SQ SCH ×4 (00:41→23:36)
[2022-01-17 00:52] LABS: Glucose,Whole Blood 149 mg/dL (70-110)
[2022-01-17] MEDS: SODIUM CHLORIDE 0.9% 1,000 ML IV SCH ×2 (02:46→13:12)
[2022-01-17] MEDS: LIDOCAINE 1% INJ 10MG/ML (20 ML MDV) SQ STA (03:05)
[2022-01-17 06:39] LABS: Anisocytosis Slight; Basophils # (A) 0.1 k/uL (0-0.2); Basophils % (A) 1 %; Eosinophils # (A) 0.1 k/uL (0-0.7); Eosinophils % (A) 1 %; HCT 32.4 % (39.0-53.0); HGB 10.1 gm/dL (13.0-17.5); Hypochromasia Slight; Lymphocytes # (A) 2.1 k/uL (1.0-4.8); Lymphocytes % (A) 24 %; MCH 25.4 pg (25.0-35.0); MCV 81.7 fL (80.0-100.0); Mean Platelet Volume 7.2; Microcytosis Slight; Monocytes # (A) 0.8 k/uL (0-1.0); Monocytes % (A) 9 %; Neutrophils # (A) 5.8 k/uL (1.3-7.7); Neutrophils % (A) 65 %; Platelet Count 327 k/uL (150-450); RBC 3.96 m/uL (4.30-5.90); RDW 17.1 % (11.5-15.5)
[2022-01-17 06:55] LABS: ALT 9 U/L (4-49); AST 18 U/L (17-59); African American GFR (CKD) >90 (>60 ml/min/1.73 sqM); Albumin 2.9 g/dL (3.5-5.0); Alkaline Phosphatase 128 U/L (38-126); Anion Gap 6 mmol/L; Bilirubin, Delta 0.2 mg/dL (0.0-0.2); Bilirubin,Unconjugated 0.8 mg/dL (0.0-1.1); Blood Urea Nitrogen 13 mg/dL (9-20); Calcium 7.9 mg/dL (8.4-10.2); Carbon Dioxide 21 mmol/L (22-30); Chloride 101 mmol/L (98-107); Glucose 94 mg/dL (74-99); Magnesium 1.6 mg/dL (1.6-2.3); Non-African American GFR(CKD) >90 (>60 ml/min/1.73 sqM); Potassium 3.7 mmol/L (3.5-5.1); Sodium 128 mmol/L (137-145); Total Protein 6.3 g/dL (6.3-8.2)
[2022-01-17] MEDS: NICOTINE 21MG/24HR PATCH TRANSDERM SCH (08:25)
[2022-01-17] MEDS: MORPHINE SULFATE 4 MG/ML SYRINGE IV PRN ×4 (08:26→23:11)
--- NOTE | 2022-01-17 08:31 | P.HPIM ---
History of Present Illness This is a pleasant 67 years old male with past medical history of GERD, hypertension, paralyzed vocal cord nicotine dependence. Patient presents because of a fall, yesterday he was carrying dtuff and put them up in the refrigerator when he lost his balance and fell on his left side and injured his left shoulder currently is complaining of from significant pain although he sits and common bed, his left arm is lying There is evidence of left humeral fracture on x-ray, orthopedic team already been contacted by emergency room physician last time as he told me DAYANA Sands when we discussed the case together. He denies any syncope, does not have headache or dizziness currently, no weakness or numbness, no chest pain or dyspnea but he has some cough and yellow phlegm for the last 2 days. No change in urine or bowel habits. No vomiting or diarrhea or dysuria or urgency. He smokes half pack per day and he was counseled to quit and he agrees to the nicotine patch. No alcohol or illicit drugs. Also patient reports injury to his right leg about one week ago and he has a small wound with Band-Aid and some mild purulent discharge with surrounding redness but no significant tenderness or swelling suspicious for cellulitis and culture has been sent. Patient has a known right upper lung mass, he told me he saw Dr. Maria as an outpatient and he is supposed to get a lung biopsy but it was canceled because his blood was all as he describes. Patient aware of the risk of cancer with this mass. Labs reviewed showing mild leukocytosis at 10.8, hemoglobin 12.2. INR is unremarkable. Sodium is 124, potassium high 5.5, creatinine normal 0.7. Glucose low 64, and repeated 201. Liver enzymes not significantly elevated. Bilirubin is high at 2.1. TSH is normal at 0.8. Troponin is negative at 0.019. Chest x-ray: Right upper lobe mass increasing in size. Interstitial bacilli pulmonary infiltrates and subsegmental atelectasis are increased compared to old exam Left arm x-ray showing proximal left humerus fracture with displacement. Left distal clavicle deformity suspicious for prior fractures in the emergency room patient received normal saline at 75 mL/h Last night when the ER DAYANA Dumont informed me about the case and discussed with me I asked him to call orthopedic on-call for his displaced femoral fracture Review of Systems Review of systems CONSTITUTIONAL: No fever, no malaise, no fatigue. HEENT: No recent visual problems or hearing problems. Denied any sore throat. CARDIOVASCULAR: No orthopnea, PND, no palpitations, no syncope. PULMONARY: No shortness of breath, no hemoptysis. GASTROINTESTINAL: No diarrhea, no nausea, no vomiting, no abdominal pain. Normo active bowel sounds. NEUROLOGICAL: No headaches, no weakness, no numbness. HEMATOLOGICAL: Denies any bleeding or petechiae. GENITOURINARY: Denies any burning micturition, frequency, or urgency. MUSCULOSKELETAL/RHEUMATOLOGICAL: Denies any joint pain, swelling, or any muscle pain. ENDOCRINE: Denies any polyuria or polydipsia. Past Medical History Past Medical History: Cancer, GERD/Reflux, Hypertension Additional Past Medical History / Comment(s): paralyzed vocal cord, SKIN CANCER(FACE), mass in lungs History of Any Multi-Drug Resistant Organisms: None Reported Past Surgical History: Orthopedic Surgery Additional Past Surgical History / Comment(s): triple endoscopy, LT KNEE SCOPE, LT KNEE MENISCUS SX Past Anesthesia/Blood Transfusion Reactions: No Reported Reaction Additional Past Anesthesia/Blood Transfusion Reaction / Comment(s): . Past Psychological History: No Psychological Hx Reported Smoking Status: Current every day smoker Past Alcohol Use History: Daily Past Drug Use History: None Reported - Past Family History Father Family Medical History: Congestive Heart Failure (CHF), Myocardial Infarction ([place]) Mother Family Medical History: No Reported History Additional Family Medical History / Comment(s): MOM IS IN GOOD HEALTH AT AGE 96 Medications and Allergies Home Medications Medication Instructions Recorded Confirmed Type Omeprazole Magnesium [PriLOSEC OTC] 20 mg PO DAILY PRN 06/14/21 10/20/21 History Acetaminophen Tab [Tylenol] 1,000 mg PO Q6H PRN 10/11/21 10/20/21 History Famotidine [Pepcid] 20 mg PO DAILY PRN 10/11/21 10/20/21 History diphenhydrAMINE [Benadryl] 25 - 50 mg PO HS PRN 10/11/21 10/20/21 History Docusate [Colace] 100 mg PO DAILY #30 capsule 10/16/21 10/20/21 Rx Ferrous Sulfate [Feosol] 325 mg PO DAILY #30 tab 10/16/21 10/20/21 Rx Thiamine [Vitamin B-1] 100 mg PO BID-W/MEALS #60 tab 10/16/21 10/20/21 Rx amLODIPine [Norvasc] 5 mg PO DAILY #30 tab 10/16/21 10/20/21 Rx Sodium Bicarbonate Tab 650 mg PO BID #60 tab 10/17/21 10/20/21 Rx Sodium Chloride Tab 1 gm PO DAILY #30 tab 10/17/21 10/20/21 Rx Ascorbic Acid [Vitamin C] 500 mg PO BID tab 10/27/21 Rx Cholecalciferol [Vitamin D3 (25 50 mcg PO DAILY tab 10/27/21 Rx Mcg = 1000 Iu)] Enoxaparin [Lovenox] 40 mg SQ DAILY each 10/27/21 Rx Allergies Allergy/AdvReac Type Severity Reaction Status Date / Time No Known Allergies Allergy Verified 01/16/22 21:46 Physical Exam Vitals: Vital Signs Temp Pulse Resp BP Pulse Ox 01/17/22 02:48 84 16 122/82 95 01/17/22 01:45 97 16 107/82 95 01/17/22 01:00 95 16 134/76 95 01/16/22 23:25 98 16 126/75 95 01/16/22 22:19 100 16 155/97 95 01/16/22 21:36 98 16 175/95 95 01/16/22 20:10 97.8 F 84 16 182/98 95 Intake and Output 01/16/22 01/16/22 01/17/22 14:59 22:59 06:59 Other: Weight 60.328 kg GENERAL: The patient is alert and oriented x3, not in any acute distress. Well developed, well nourished. HEENT: Pupils are round and equally reacting to light. EOMI. No scleral icterus. No conjunctival pallor. Normocephalic, atraumatic. No pharyngeal erythema. No thyromegaly. CARDIOVASCULAR: S1 and S2 present. No murmurs, rubs, or gallops. PULMONARY: Chest is clear to auscultation, no wheezing or crackles. ABDOMEN: Soft, nontender, nondistended, normoactive bowel sounds. No palpable organomegaly. MUSCULOSKELETAL: No joint swelling or deformity. -EXTREMITIES: No cyanosis, clubbing, or pedal edema. Left upper extremity in a sling. Right leg ulcer about half inch in diameter with some clear yellow discharge and surrounding redness with no significant tenderness or swelling NEUROLOGICAL: Gross neurological examination did not reveal any focal deficits. SKIN: No rashes. no petechiae. Results CBC & Chem 7: 01/17/22 06:26 01/17/22 06:26 Labs: Abnormal Lab Results - Last 24 Hours (Table) 01/16/22 01/16/22 01/16/22 Range/Units 20:14 20:14 21:36 WBC 10.8 H (3.8-10.6) k/uL Hgb 12.2 L (13.0-17.5) gm/dL Hct 37.4 L (39.0-53.0) % RDW 17.5 H (11.5-15.5) % Neutrophils # 8.9 H (1.3-7.7) k/uL Sodium 124 L (137-145) mmol/L Potassium 5.5 H (3.5-5.1) mmol/L Chloride 92 L (98-107) mmol/L Carbon Dioxide 17 L (22-30) mmol/L Glucose 64 L (74-99) mg/dL POC Glucose (mg/dL) (70-110) mg/dL Total Bilirubin 2.1 H (0.2-1.3) mg/dL AST 65 H (17-59) U/L Alkaline Phosphatase 135 H (38-126) U/L Total Protein 8.7 H (6.3-8.2) g/dL Urine Protein Trace H (Negative) 01/16/22 01/17/22 Range/Units 22:10 00:40 WBC (3.8-10.6) k/uL Hgb (13.0-17.5) gm/dL Hct (39.0-53.0) % RDW (11.5-15.5) % Neutrophils # (1.3-7.7) k/uL Sodium (137-145) mmol/L Potassium (3.5-5.1) mmol/L Chloride (98-107) mmol/L Carbon Dioxide (22-30) mmol/L Glucose (74-99) mg/dL POC Glucose (mg/dL) 201 H 149 H (70-110) mg/dL Total Bilirubin (0.2-1.3) mg/dL AST (17-59) U/L Alkaline Phosphatase (38-126) U/L Total Protein (6.3-8.2) g/dL Urine Protein (Negative) Assessment and Plan Assessment: Enlarging right upper lobe lung mass Electrolyte abnormality with hyponatremia and hyperkalemia Fall without syncope Acute Left humerus fracture Right leg wound with surrounding cellulitis Nicotine dependence History of GERD Hypertension History of paralyzed vocal cord Plan: This is a pleasant 67 years old male who presents with fall and humerus fracture Start the patient on Keflex and follow-up wound culture Continue with pain medication, currently on morphine IV when necessary Orthopedic consult Also consult Dr. Garcia his lung doctor for his lung mass Labs and medication were reviewed.. Continue same treatment. Continue with symptomatic treatment. Resume home medication. Monitor lytes and vitals. DVT and GI prophylaxis. Further recommendations as per clinical course of the patient DVT prophylaxis: Subcutaneous heparin GI Prophylaxis: Pepcid PT/OT: Pending Prognosis is guarded
[2022-01-17] MEDS ORDERED: IOPAMIDOL CONTRAST (ORAL USE) VIAL PO PRN (09:06)
--- NOTE | 2022-01-17 10:38 | P.CNPUL ---
History of Present Illness Consult date: 01/17/22 Requesting physician: See Plata III Reason for consult: COPD, lung mass, abnormal CXR/CT, other Chief complaint: Weakness, falling. History of present illness: Pulmonary consult dated 01/17/2022. 67-year-old male, seen in the emergency department, on January 16. The patient arrived, via EMS, having fallen at home a couple times. He feels like his legs are very weak. He does live at home. He apparently injured his left shoulder when he fell. He denies any chest pain or chest discomfort. There is no worsening shortness of breath, cough, wheezing, or phlegm production. I saw him last in May 2020. I have been following him for a lesion in the right lung. The patient had previous navigational bronchoscopy in May 2020, that was nondiagnostic. The lesion is still present in the right lung, having gotten larger, and possibly represents bronchogenic lung cancer. The patient is continuing to smoke. Again he denies any pulmonary issues at this time. The patient has not seen his primary care physician, and some time as well. His medical history includes gastroesophageal reflux disease, paralyzed vocal cord, skin cancer, hypertension, and a lung mass, likely representing bronchogenic cancer. White count 9, hemoglobin 10.1, hematocrit 32.4, and platelet count 3 27,000. Sodium 128, potassium 3.7, chlorides 101, CO2 21, BUN 13, and creatinine 0.66. Chest x-ray shows a nearly 4 cm masslike density, right upper lobe. Review of Systems REVIEW OF SYSTEMS: CONSTITUTIONAL: Weakness, and falling. NEUROLOGIC: [ Negative.] HEENT: [ Negative.] CARDIAC: [Negative.] PULMONARY: [Negative.] GI: [Negative.] : [Negative.] RHEUMATOLOGIC: [ Negative.] IMMUNOLOGIC: [ Negative.] ENDOCRINE: [Negative. ] DERMATOLOGIC: [Negative.] Past Medical History Past Medical History: Cancer, GERD/Reflux, Hypertension Additional Past Medical History / Comment(s): paralyzed vocal cord, SKIN CANCER(FACE), mass in lungs History of Any Multi-Drug Resistant Organisms: None Reported Past Surgical History: Orthopedic Surgery Additional Past Surgical History / Comment(s): triple endoscopy, LT KNEE SCOPE, LT KNEE MENISCUS SX Past Anesthesia/Blood Transfusion Reactions: No Reported Reaction Additional Past Anesthesia/Blood Transfusion Reaction / Comment(s): . Past Psychological History: No Psychological Hx Reported Smoking Status: Current every day smoker Past Alcohol Use History: Daily Past Drug Use History: None Reported - Past Family History Father Family Medical History: Congestive Heart Failure (CHF), Myocardial Infarction ([place]) Mother Family Medical History: No Reported History Additional Family Medical History / Comment(s): MOM IS IN GOOD HEALTH AT AGE 96 Medications and Allergies Home Medications Medication Instructions Recorded Confirmed Type Omeprazole Magnesium [PriLOSEC OTC] 20 mg PO DAILY PRN 06/14/21 01/17/22 History Acetaminophen Tab [Tylenol] 1,000 mg PO Q6H PRN 10/11/21 01/17/22 History Famotidine [Pepcid] 20 mg PO DAILY PRN 10/11/21 01/17/22 History diphenhydrAMINE [Benadryl] 25 - 50 mg PO HS PRN 10/11/21 01/17/22 History Allergies Allergy/AdvReac Type Severity Reaction Status Date / Time No Known Allergies Allergy Verified 01/16/22 21:46 Physical Exam Osteopathic Statement: *. No significant issues noted on an osteopathic structural exam other than those noted in the History and Physical/Consult. Vitals: Vital Signs Temp Pulse Resp BP Pulse Ox 01/17/22 07:00 76 16 99 01/17/22 02:48 84 16 122/82 95 01/17/22 01:45 97 16 107/82 95 01/17/22 01:00 95 16 134/76 95 01/16/22 23:25 98 16 126/75 95 01/16/22 22:19 100 16 155/97 95 01/16/22 21:36 98 16 175/95 95 01/16/22 20:10 97.8 F 84 16 182/98 95 Intake and Output 01/16/22 01/17/22 01/17/22 22:59 06:59 14:59 Other: Weight 60.328 kg No acute distress, oriented 3. Currently on room air. HEENT examination is grossly unremarkable. Neck supple. Full range of motion. No adenopathy thyromegaly or neck vein distention. Cardiovascular examination reveals regular rhythm rate. S1-S2 normal. No S3 or S4. No discernible murmur noted. Heart rate 76 beats. Lungs reveal mostly clear breath sounds. Mild bilateral scattered rhonchi. No wheezes or crackles. Breath sounds equal bilaterally. Room air saturation 99%. Abdomen soft bowel sounds are heard. No masses or tenderness. Extremities are intact. No cyanosis clubbing or edema. Left arm is in a sling. Skin reveals multiple areas of ecchymoses and bruising. Neurologic examination is brief but nonfocal. Results - Laboratory Findings CBC and BMP: 01/17/22 06:26 01/17/22 06:26 PT/INR, D-dimer PT 10.6 sec (9.0-12.0) 01/16/22 20:14 INR 1.0 (<1.2) 01/16/22 20:14 Abnormal lab findings: Abnormal Labs 01/16/22 01/16/22 01/16/22 20:14 20:14 21:36 WBC 10.8 H RBC Hgb 12.2 L Hct 37.4 L RDW 17.5 H Neutrophils # 8.9 H Sodium 124 L Potassium 5.5 H Chloride 92 L Carbon Dioxide 17 L Glucose 64 L POC Glucose (mg/dL) Calcium Total Bilirubin 2.1 H AST 65 H Alkaline Phosphatase 135 H Total Protein 8.7 H Albumin Urine Protein Trace H 01/16/22 01/17/22 01/17/22 22:10 00:40 06:26 WBC RBC 3.96 L Hgb 10.1 L Hct 32.4 L RDW 17.1 H Neutrophils # Sodium Potassium Chloride Carbon Dioxide Glucose POC Glucose (mg/dL) 201 H 149 H Calcium Total Bilirubin AST Alkaline Phosphatase Total Protein Albumin Urine Protein 01/17/22 06:26 WBC RBC Hgb Hct RDW Neutrophils # Sodium 128 L Potassium Chloride Carbon Dioxide 21 L Glucose POC Glucose (mg/dL) Calcium 7.9 L Total Bilirubin AST Alkaline Phosphatase 128 H Total Protein Albumin 2.9 L Urine Protein - Diagnostic Findings Chest x-ray: image reviewed Assessment and Plan Assessment: Weakness, with falling episodes at home, and an proximal left humeral fracture. Mild hyponatremia. Ongoing tobacco use with nicotine addiction. 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 History of hypertension. History of GERD. History of skin cancer. History of paralyzed vocal cord. Plan: Plan dated 01/17/2022. We felt the patient should have a computed tomography scan of the chest abdomen and pelvis. He apparently refused. The patient will need outpatient follow-up, including a follow-up PET scan. We will need another procedure for diagnosis. He seemed reluctant to come back and see me. He has missed several appointments in the office. Prognosis is poor. He may need placement after this hospitalization. Labs, x-rays, and medications are all reviewed. Time with Patient: Greater than 30
[2022-01-17] MEDS: CEPHALEXIN 500 MG CAP PO SCH ×3 (13:11→22:50)
--- NOTE | 2022-01-17 20:54 | P.CNOR ---
History of Present Illness - HPI Consult date: 01/17/22 History of present illness: This patient is a 67- year old male with a past medical history of GERD, hypertension, cigarette smoking that presented to [facility] emergency department last evening via EMS after falls at home. Patient was complaining of left shoulder pain upon arrival to the ED. X-rays of the left shoulder revealed a left proximal humerus fracture. The patient was admitted under the care of internal medicine due to hyponatremia. Orthopedic surgery is consulted for his left proximal humerus fracture. Patient is examined bedside this afternoon in the emergency department. He is complaining of isolated left shoulder pain. He states he did not hit his head when he fell. He lives at home alone, although his son lives close by. He denies pain in the bilateral lower extremities. He denies numbness or tingling of the left upper extremity. No additional complaints at this time. Vital signs stable. Past Medical History Past Medical History: Cancer, GERD/Reflux, Hypertension Additional Past Medical History / Comment(s): paralyzed vocal cord, SKIN CANCER(FACE), mass in lungs History of Any Multi-Drug Resistant Organisms: None Reported Past Surgical History: Orthopedic Surgery Additional Past Surgical History / Comment(s): triple endoscopy, LT KNEE SCOPE, LT KNEE MENISCUS SX Past Anesthesia/Blood Transfusion Reactions: No Reported Reaction Additional Past Anesthesia/Blood Transfusion Reaction / Comm: . Past Psychological History: No Psychological Hx Reported Smoking Status: Current every day smoker Past Alcohol Use History: Daily Past Drug Use History: None Reported - Past Family History Father Family Medical History: Congestive Heart Failure (CHF), Myocardial Infarction ([place]) Mother Family Medical History: No Reported History Additional Family Medical History / Comment(s): MOM IS IN GOOD HEALTH AT AGE 96 Medications and Allergies Home Medications Medication Instructions Recorded Confirmed Type Omeprazole Magnesium [PriLOSEC OTC] 20 mg PO DAILY PRN 06/14/21 01/17/22 History Acetaminophen Tab [Tylenol] 1,000 mg PO Q6H PRN 10/11/21 01/17/22 History Famotidine [Pepcid] 20 mg PO DAILY PRN 10/11/21 01/17/22 History diphenhydrAMINE [Benadryl] 25 - 50 mg PO HS PRN 10/11/21 01/17/22 History Allergies Allergy/AdvReac Type Severity Reaction Status Date / Time No Known Allergies Allergy Verified 01/16/22 21:46 Physical Examination On examination, patient is sitting up in bed in no apparent distress. He is alert and orientated x3. His head appears normocephalic and atraumatic. His breathing appears non-labored. On inspection of his left shoulder, there are no open wounds, lacerations. Skin is intact. Mild swelling. There are multiple superficial skin tears along the left forearm. Left hand is bandaged at this time due to reported skin tear. There is severe pain with palpation of the shoulder. No pain with palpation of the C-spine. No pain with palpation of the left distal humerus, elbow, forearm, wrist, hand. Motor and sensory function intact LUE. Radial pulse easily palpable, the LUE is warm and well-perfused with brisk capillary refill distally. On inspection of the right upper extremity, no obvious deformities or signs of trauma. On inspection of the bilateral lower extremities, no obvious deformities or signs of trauma. There is no pain with PROM of the bilateral hips. Results Left shoulder x-ray 01/16/22: Displaced left proximal humerus fracture - Labs Labs: Abnormal Lab Results - Last 24 Hours (Table) 01/16/22 01/16/22 01/16/22 Range/Units 20:14 20:14 21:36 WBC 10.8 H (3.8-10.6) k/uL RBC (4.30-5.90) m/uL Hgb 12.2 L (13.0-17.5) gm/dL Hct 37.4 L (39.0-53.0) % RDW 17.5 H (11.5-15.5) % Neutrophils # 8.9 H (1.3-7.7) k/uL Sodium 124 L (137-145) mmol/L Potassium 5.5 H (3.5-5.1) mmol/L Chloride 92 L (98-107) mmol/L Carbon Dioxide 17 L (22-30) mmol/L Glucose 64 L (74-99) mg/dL POC Glucose (mg/dL) (70-110) mg/dL Calcium (8.4-10.2) mg/dL Total Bilirubin 2.1 H (0.2-1.3) mg/dL AST 65 H (17-59) U/L Alkaline Phosphatase 135 H (38-126) U/L Total Protein 8.7 H (6.3-8.2) g/dL Albumin (3.5-5.0) g/dL Procalcitonin (0.02-0.09) ng/mL Urine Protein Trace H (Negative) 01/16/22 01/17/22 01/17/22 Range/Units 22:10 00:40 06:26 WBC (3.8-10.6) k/uL RBC 3.96 L (4.30-5.90) m/uL Hgb 10.1 L (13.0-17.5) gm/dL Hct 32.4 L (39.0-53.0) % RDW 17.1 H (11.5-15.5) % Neutrophils # (1.3-7.7) k/uL Sodium (137-145) mmol/L Potassium (3.5-5.1) mmol/L Chloride (98-107) mmol/L Carbon Dioxide (22-30) mmol/L Glucose (74-99) mg/dL POC Glucose (mg/dL) 201 H 149 H (70-110) mg/dL Calcium (8.4-10.2) mg/dL Total Bilirubin (0.2-1.3) mg/dL AST (17-59) U/L Alkaline Phosphatase (38-126) U/L Total Protein (6.3-8.2) g/dL Albumin (3.5-5.0) g/dL Procalcitonin (0.02-0.09) ng/mL Urine Protein (Negative) 01/17/22 01/17/22 Range/Units 06:26 06:26 WBC (3.8-10.6) k/uL RBC (4.30-5.90) m/uL Hgb (13.0-17.5) gm/dL Hct (39.0-53.0) % RDW (11.5-15.5) % Neutrophils # (1.3-7.7) k/uL Sodium 128 L (137-145) mmol/L Potassium (3.5-5.1) mmol/L Chloride (98-107) mmol/L Carbon Dioxide 21 L (22-30) mmol/L Glucose (74-99) mg/dL POC Glucose (mg/dL) (70-110) mg/dL Calcium 7.9 L (8.4-10.2) mg/dL Total Bilirubin (0.2-1.3) mg/dL AST (17-59) U/L Alkaline Phosphatase 128 H (38-126) U/L Total Protein (6.3-8.2) g/dL Albumin 2.9 L (3.5-5.0) g/dL Procalcitonin 0.48 H (0.02-0.09) ng/mL Urine Protein (Negative) Microbiology - Last 24 Hours (Table) 01/17/22 08:10 Wound Culture - Preliminary Leg - Right H & H 01/16/22 01/17/22 Range/Units 20:14 06:26 Hgb 12.2 L 10.1 L (13.0-17.5) gm/dL Hct 37.4 L 32.4 L (39.0-53.0) % Coagulation 01/16/22 Range/Units 20:14 INR 1.0 (<1.2) Result Diagrams: 01/17/22 06:26 01/17/22 06:26 Assessment and Plan Assessment: Left proximal humerus fracture Plan: - The clinical and imaging findings were discussed with the patient. Patient discusses with Dr. Gaviria. No surgical intervention planned for this hospital stay. Recommend sling immobilization of the left upper extremity. Non-weight bearing left upper extremity. He may perform [id number] of the left wrist, hand as tolerated. - Pain management as needed per admitting team. - Patient should follow-up in the office next week with Dr. Gaviria for repeat x- rays and further management of his left proximal humerus fracture.
[2022-01-17] MEDS: PANTOPRAZOLE 40 MG TABLET PO SCH (23:36)
[2022-01-18] MEDS: MORPHINE SULFATE 4 MG/ML SYRINGE IV PRN ×5 (03:04→20:53)
[2022-01-18] MEDS: SODIUM CHLORIDE 0.9% 1,000 ML IV SCH ×2 (03:05→16:15)
[2022-01-18] MEDS: PANTOPRAZOLE 40 MG TABLET PO SCH (03:11)
[2022-01-18] MEDS ORDERED: lisinopriL 10 MG TAB PO SCH (05:30)
[2022-01-18] MEDS: HYDROcodone/APAP 5-325MG 1 EACH TAB PO PRN ×2 (08:53→14:33)
[2022-01-18] MEDS: HEPARIN SODIUM,PORCINE/PF 5,000 UNIT/0.5 ML SYRINGE SQ SCH ×3 (09:08→23:33)
[2022-01-18] MEDS: NICOTINE 21MG/24HR PATCH TRANSDERM SCH (09:08)
[2022-01-18 09:39] LABS: Anisocytosis Slight; Basophils # (A) 0.1 k/uL (0-0.2); Basophils % (A) 1 %; Eosinophils # (A) 0.2 k/uL (0-0.7); Eosinophils % (A) 2 %; HCT 36.4 % (39.0-53.0); HGB 11.2 gm/dL (13.0-17.5); Hypochromasia Marked; Lymphocytes # (A) 2.1 k/uL (1.0-4.8); Lymphocytes % (A) 24 %; MCH 26.4 pg (25.0-35.0); MCHC 30.8 g/dL (31.0-37.0); MCV 85.8 fL (80.0-100.0); Mean Platelet Volume 7.5; Monocytes # (A) 0.5 k/uL (0-1.0); Monocytes % (A) 6 %; Neutrophils # (A) 5.9 k/uL (1.3-7.7); Neutrophils % (A) 66 %; Platelet Count 327 k/uL (150-450); RBC 4.24 m/uL (4.30-5.90); RDW 17.1 % (11.5-15.5); WBC 8.9 k/uL (3.8-10.6)
[2022-01-18 09:56] LABS: ALT 10 U/L (4-49); AST 19 U/L (17-59); African American GFR (CKD) >90 (>60 ml/min/1.73 sqM); Albumin 3.4 g/dL (3.5-5.0); Alkaline Phosphatase 127 U/L (38-126); Anion Gap 9 mmol/L; Blood Urea Nitrogen 8 mg/dL (9-20); Calcium 8.6 mg/dL (8.4-10.2); Carbon Dioxide 20 mmol/L (22-30); Chloride 101 mmol/L (98-107); Glucose 122 mg/dL (74-99); Non-African American GFR(CKD) >90 (>60 ml/min/1.73 sqM); Potassium 3.7 mmol/L (3.5-5.1); Sodium 130 mmol/L (137-145); Total Bilirubin 0.9 mg/dL (0.2-1.3); Total Protein 7.1 g/dL (6.3-8.2)
--- NOTE | 2022-01-18 11:02 | P.PN ---
Subjective Progress Note Date: 01/18/22 Principal diagnosis: Lung mass. Pulmonary consult dated 01/17/2022. 67-year-old male, seen in the emergency department, on January 16. The patient arrived, via EMS, having fallen at home a couple times. He feels like his legs are very weak. He does live at home. He apparently injured his left shoulder when he fell. He denies any chest pain or chest discomfort. There is no worsening shortness of breath, cough, wheezing, or phlegm production. I saw him last in May 2020. I have been following him for a lesion in the right lung. The patient had previous navigational bronchoscopy in May 2020, that was nondiagnostic. The lesion is still present in the right lung, having gotten larger, and possibly represents bronchogenic lung cancer. The patient is continuing to smoke. Again he denies any pulmonary issues at this time. The patient has not seen his primary care physician, and some time as well. His medical history includes gastroesophageal reflux disease, paralyzed vocal cord, skin cancer, hypertension, and a lung mass, likely representing bronchogenic cancer. White count 9, hemoglobin 10.1, hematocrit 32.4, and platelet count 327,000. Sodium 128, potassium 3.7, chlorides 101, CO2 21, BUN 13, and creatinine 0.66. Chest x-ray shows a nearly 4 cm masslike density, right upper lobe. Progress note dated 01/18/2022. 67-year-old male seen in the emergency room yesterday, January 17. He initially presented the day before. The patient fell at home, and injured his left shoulder, and was determined to have a left humeral fracture. I saw him back in May 2020. The patient had a lesion in the right upper lobe, and navigational bronchoscopy was performed, but was nondiagnostic. The patient was to come back for additional testing and biopsies, and possibly referral to thoracic surgery for a wedge resection but he never came back to the office. Now the lesion is much larger. He does have a history of GERD, paralyzed vocal cord, and cancer, hypertension, and of course a lung mass, which likely represents bronchogenic carcinoma. The patient does continue to smoke. He is on room air. Is getting saline at 75 mL an hour. He has been seen by orthopedics for left humeral fracture. White count 8.9, hemoglobin 11.2, hematocrit 36 4, platelet count normal. Sodium 1:30, potassium 3.7, chlorides 101, CO2 20, anion gap 9, BUN 8, creatinine 0.64. Objective - Vital Signs Vital signs: Vital Signs Temp 97.7 F 01/18/22 04:00 Pulse 69 01/18/22 10:00 Resp 18 01/18/22 10:00 BP 170/100 01/18/22 10:00 Pulse Ox 96 01/18/22 10:00 FiO2 Intake & Output 01/17/22 01/18/22 01/18/22 18:59 06:59 18:59 Intake Total 675 Balance 675 Weight 67.3 kg Intake: IV 675 Sodium Chloride 0.9% 1, 675 000 ml @ 75 mls/hr IV . [id number] [facility] Rx#:[id number] Other: Voiding Method External Catheter External Catheter # Voids 1 - Exam No acute distress, oriented 3. Currently on room air. HEENT examination is grossly unremarkable. Neck supple. Full range of motion. No adenopathy thyromegaly or neck vein distention. Cardiovascular examination reveals regular rhythm rate. S1-S2 normal. No S3 or S4. No discernible murmur noted. Heart rate 69 beats. Lungs reveal mostly clear breath sounds. Mild bilateral scattered rhonchi. No wheezes or crackles. Breath sounds equal bilaterally. Room air saturation 97 %. Abdomen soft bowel sounds are heard. No masses or tenderness. Extremities are intact. No cyanosis clubbing or edema. Left arm is in a sling. Skin reveals multiple areas of ecchymoses and bruising. Neurologic examination is brief but nonfocal. - Labs CBC & Chem 7: 01/18/22 09:19 01/18/22 09:19 Labs: Abnormal Lab Results - Last 24 Hours (Table) 01/17/22 01/18/22 01/18/22 Range/Units 06:26 09:19 09:19 RBC 4.24 L (4.30-5.90) m/uL Hgb 11.2 L (13.0-17.5) gm/dL Hct 36.4 L (39.0-53.0) % MCHC 30.8 L (31.0-37.0) g/dL RDW 17.1 H (11.5-15.5) % Sodium 130 L (137-145) mmol/L Carbon Dioxide 20 L (22-30) mmol/L BUN 8 L (9-20) mg/dL Creatinine 0.64 L (0.66-1.25) mg/dL Glucose 122 H (74-99) mg/dL Alkaline Phosphatase 127 H (38-126) U/L Albumin 3.4 L (3.5-5.0) g/dL Procalcitonin 0.48 H (0.02-0.09) ng/mL Microbiology - Last 24 Hours (Table) 01/17/22 08:10 Gram Stain - Preliminary Leg - Right Wound Culture - Preliminary Assessment and Plan Assessment: Weakness, with falling episodes at home, and an proximal left humeral fracture. Mild hyponatremia. Ongoing tobacco use with nicotine addiction. 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 History of hypertension. History of GERD. History of skin cancer. History of paralyzed vocal cord. Plan: Plan dated 01/17/2022. We felt the patient should have a computed tomography scan of the chest abdomen and pelvis. He apparently refused. The patient will need outpatient follow-up, including a follow-up PET scan. We will need another procedure for diagnosis. He seemed reluctant to come back and see me. He has missed several appointments in the office. Prognosis is poor. He may need placement after this hospitalization. Labs, x-rays, and medications are all reviewed. Plan dated 01/18/2022. The patient will eventually need a follow-up computed tomography scan and an out patient PET scan. In addition, he will need another biopsy. All this can be done as an outpatient. He is currently in the hospital, as an overflow patient in the intensive care unit. He has been seen by orthopedics. He may need placement for rehabilitation and strengthening. We will continue to follow as needed. Prognosis is poor. The patient does say that he would like to have some follow-up for his lung lesion. Time with Patient: Less than 30
[2022-01-18] MEDS: CEPHALEXIN 500 MG CAP PO SCH ×3 (11:16→21:58)
[2022-01-18] MEDS: HYDROcodone/APAP 7.5-325MG 1 EACH TAB PO PRN (19:06)
--- NOTE | 2022-01-18 21:15 | P.PN ---
Subjective This is a pleasant 67 years old male with past medical history of GERD, hypertension, paralyzed vocal cord nicotine dependence. Patient presents because of a fall, yesterday he was carrying dtuff and put them up in the refrigerator when he lost his balance and fell on his left side and injured his left shoulder currently is complaining of from significant pain although he sits and common bed, his left arm is lying There is evidence of left humeral fracture on x-ray, orthopedic team already been contacted by emergency room physician last time as he told me DAYANA Sands when we discussed the case together. He denies any syncope, does not have headache or dizziness currently, no weakness or numbness, no chest pain or dyspnea but he has some cough and yellow phlegm for the last 2 days. No change in urine or bowel habits. No vomiting or diarrhea or dysuria or urgency. He smokes half pack per day and he was counseled to quit and he agrees to the nicotine patch. No alcohol or illicit drugs. Also patient reports injury to his right leg about one week ago and he has a small wound with Band-Aid and some mild purulent discharge with surrounding redness but no significant tenderness or swelling suspicious for cellulitis and culture has been sent. Patient has a known right upper lung mass, he told me he saw Dr. Maria as an outpatient and he is supposed to get a lung biopsy but it was canceled because his blood was all as he describes. Patient aware of the risk of cancer with this mass. Labs reviewed showing mild leukocytosis at 10.8, hemoglobin 12.2. INR is unremarkable. Sodium is 124, potassium high 5.5, creatinine normal 0.7. Glucose low 64, and repeated 201. Liver enzymes not significantly elevated. Bilirubin is high at 2.1. TSH is normal at 0.8. Troponin is negative at 0.019. Chest x-ray: Right upper lobe mass increasing in size. Interstitial bacilli pulmonary infiltrates and subsegmental atelectasis are increased compared to old exam Left arm x-ray showing proximal left humerus fracture with displacement. Left distal clavicle deformity suspicious for prior fractures in the emergency room patient received normal saline at 75 mL/h Last night when the ER DAYANA Dumont informed me about the case and discussed with me I asked him to call orthopedic on-call for his displaced femoral fracture 01/18/2022 Patient looks more awake and resting in bed however he is in mild distress due to pain in his left humerus. Orthopedic team recommended non-surgical intervention and continue with conservative management and follow-up outpatient in 1 week. He is only on IV morphine which is not large enough to control his pain, we started him on [place] 5 and we had to increase it to 7.5 mg for better control of pain. Also patient is okay to have PT/OT evaluation per orthopedic team per staff. Patient is aware of his enlarging right-sided lung mass with risk of cancer there. He wants to do follow-up. I asked him why he did not follow-up last time he told me because he forgot, I offered to Dr. family or a friend so they can remind him but he declined. Risks and benefits are explained. Patient has capacity to make decision. His leg cellulitis significantly improving. Pulmonary team input is appreciated and noted Objective - Vital Signs Vital signs: Vital Signs Temp 97.7 F 01/18/22 04:00 Pulse 86 01/18/22 04:00 Resp 20 01/18/22 04:00 BP 186/94 01/18/22 04:00 Pulse Ox 94 L 01/18/22 04:00 FiO2 Intake & Output 01/17/22 01/18/22 01/18/22 18:59 06:59 18:59 Intake Total 675 Balance 675 Weight 67.3 kg Intake: IV 675 Sodium Chloride 0.9% 1, 675 000 ml @ 75 mls/hr IV . [id number] [facility] Rx#:[id number] Other: Voiding Method External Catheter # Voids 1 - Exam GENERAL: The patient is alert and oriented x3, not in any acute distress. Well developed, well nourished. HEENT: Pupils are round and equally reacting to light. EOMI. No scleral icterus. No conjunctival pallor. Normocephalic, atraumatic. No pharyngeal erythema. No thyromegaly. CARDIOVASCULAR: S1 and S2 present. No murmurs, rubs, or gallops. PULMONARY: Chest is clear to auscultation, no wheezing or crackles. ABDOMEN: Soft, nontender, nondistended, normoactive bowel sounds. No palpable organomegaly. MUSCULOSKELETAL: No joint swelling or deformity. EXTREMITIES: No cyanosis, clubbing, or pedal edema. Left upper extremity/arm in a sling NEUROLOGICAL: Gross neurological examination did not reveal any focal deficits. SKIN: No rashes. no petechiae. - Labs CBC & Chem 7: 01/18/22 09:19 01/18/22 09:19 Labs: Abnormal Lab Results - Last 24 Hours (Table) 01/17/22 01/18/22 01/18/22 Range/Units 06:26 09:19 09:19 RBC 4.24 L (4.30-5.90) m/uL Hgb 11.2 L (13.0-17.5) gm/dL Hct 36.4 L (39.0-53.0) % MCHC 30.8 L (31.0-37.0) g/dL RDW 17.1 H (11.5-15.5) % Sodium 130 L (137-145) mmol/L Carbon Dioxide 20 L (22-30) mmol/L BUN 8 L (9-20) mg/dL Creatinine 0.64 L (0.66-1.25) mg/dL Glucose 122 H (74-99) mg/dL Alkaline Phosphatase 127 H (38-126) U/L Albumin 3.4 L (3.5-5.0) g/dL Procalcitonin 0.48 H (0.02-0.09) ng/mL Microbiology - Last 24 Hours (Table) 01/17/22 08:10 Gram Stain - Preliminary Leg - Right Wound Culture - Preliminary Assessment and Plan Assessment: Enlarging right upper lobe lung mass Electrolyte abnormality with hyponatremia and hyperkalemia Fall without syncope Acute Left humerus fracture Right leg wound with surrounding cellulitis Nicotine dependence History of GERD Hypertension History of paralyzed vocal cord Plan: This is a pleasant 67 years old male who presents with fall and humerus fracture Start the patient on Keflex and follow-up wound culture Continue with pain medication, currently on morphine IV when necessary and add [place] 7.5 mg Orthopedic consult recommended neurosurgical intervention and follow-up outpatient Pulmonary: The case. Patient will need follow-up as an outpatient for his lung mass, his aware and agreeable Labs and medication were reviewed.. Continue same treatment. Continue with symptomatic treatment. Resume home medication. Monitor lytes and vitals. DVT and GI prophylaxis. Further recommendations as per clinical course of the patient DVT prophylaxis: Subcutaneous heparin GI Prophylaxis: Pepcid PT/OT: Pending Prognosis is guarded
[2022-01-19] MEDS: MORPHINE SULFATE 4 MG/ML SYRINGE IV PRN ×3 (04:59→23:10)
[2022-01-19] MEDS: PANTOPRAZOLE 40 MG TABLET PO SCH (04:59)
[2022-01-19 07:39] LABS: Anisocytosis Slight; Basophils # (A) 0.1 k/uL (0-0.2); Basophils % (A) 1 %; Eosinophils # (A) 0.1 k/uL (0-0.7); Eosinophils % (A) 1 %; HCT 33.8 % (39.0-53.0); HGB 10.3 gm/dL (13.0-17.5); Hypochromasia Moderate; Lymphocytes # (A) 1.7 k/uL (1.0-4.8); Lymphocytes % (A) 20 %; MCH 25.7 pg (25.0-35.0); MCHC 30.6 g/dL (31.0-37.0); MCV 84.2 fL (80.0-100.0); Mean Platelet Volume 7.6; Monocytes # (A) 0.5 k/uL (0-1.0); Monocytes % (A) 6 %; Neutrophils # (A) 6.3 k/uL (1.3-7.7); Neutrophils % (A) 71 %; Platelet Count 356 k/uL (150-450); RBC 4.02 m/uL (4.30-5.90); RDW 17.3 % (11.5-15.5); WBC 8.8 k/uL (3.8-10.6)
[2022-01-19 07:49] LABS: ALT 9 U/L (4-49); AST 19 U/L (17-59); African American GFR (CKD) >90 (>60 ml/min/1.73 sqM); Albumin 3.1 g/dL (3.5-5.0); Alkaline Phosphatase 120 U/L (38-126); Anion Gap 8 mmol/L; Blood Urea Nitrogen 5 mg/dL (9-20); Calcium 8.4 mg/dL (8.4-10.2); Carbon Dioxide 20 mmol/L (22-30); Chloride 101 mmol/L (98-107); Glucose 95 mg/dL (74-99); Non-African American GFR(CKD) >90 (>60 ml/min/1.73 sqM); Potassium 4.1 mmol/L (3.5-5.1); Sodium 129 mmol/L (137-145); Total Bilirubin 0.9 mg/dL (0.2-1.3); Total Protein 6.5 g/dL (6.3-8.2)
[2022-01-19] MEDS: NICOTINE 21MG/24HR PATCH TRANSDERM SCH (09:13)
[2022-01-19] MEDS: lisinopriL 10 MG TAB PO SCH (09:13)
[2022-01-19] MEDS: HEPARIN SODIUM,PORCINE/PF 5,000 UNIT/0.5 ML SYRINGE SQ SCH ×3 (09:13→23:10)
[2022-01-19] MEDS: CEPHALEXIN 500 MG CAP PO SCH ×3 (09:14→22:25)
[2022-01-19] MEDS: SODIUM CHLORIDE 0.9% 1,000 ML IV SCH ×2 (09:15→16:59)
--- NOTE | 2022-01-19 09:40 | P.PN ---
Subjective Progress Note Date: 01/19/22 Principal diagnosis: Lung mass. Pulmonary consult dated 01/17/2022. 67-year-old male, seen in the emergency department, on January 16. The patient arrived, via EMS, having fallen at home a couple times. He feels like his legs are very weak. He does live at home. He apparently injured his left shoulder when he fell. He denies any chest pain or chest discomfort. There is no worsening shortness of breath, cough, wheezing, or phlegm production. I saw him last in May 2020. I have been following him for a lesion in the right lung. The patient had previous navigational bronchoscopy in May 2020, that was nondiagnostic. The lesion is still present in the right lung, having gotten larger, and possibly represents bronchogenic lung cancer. The patient is continuing to smoke. Again he denies any pulmonary issues at this time. The patient has not seen his primary care physician, and some time as well. His medical history includes gastroesophageal reflux disease, paralyzed vocal cord, skin cancer, hypertension, and a lung mass, likely representing bronchogenic cancer. White count 9, hemoglobin 10.1, hematocrit 32.4, and platelet count 327,000. Sodium 128, potassium 3.7, chlorides 101, CO2 21, BUN 13, and creatinine 0.66. Chest x-ray shows a nearly 4 cm masslike density, right upper lobe. Progress note dated 01/18/2022. 67-year-old male seen in the emergency room yesterday, January 17. He initially presented the day before. The patient fell at home, and injured his left shoulder, and was determined to have a left humeral fracture. I saw him back in May 2020. The patient had a lesion in the right upper lobe, and navigational bronchoscopy was performed, but was nondiagnostic. The patient was to come back for additional testing and biopsies, and possibly referral to thoracic surgery for a wedge resection but he never came back to the office. Now the lesion is much larger. He does have a history of GERD, paralyzed vocal cord, and cancer, hypertension, and of course a lung mass, which likely represents bronchogenic carcinoma. The patient does continue to smoke. He is on room air. Is getting saline at 75 mL an hour. He has been seen by orthopedics for left humeral fracture. White count 8.9, hemoglobin 11.2, hematocrit 36 4, platelet count normal. Sodium 1:30, potassium 3.7, chlorides 101, CO2 20, anion gap 9, BUN 8, creatinine 0.64. Progress note dated 01/19/2022. 67-year-old male seen in the emergency room in consultation at couple days ago. The patient fell at home, fracturing his left humerus. The patient was seen by me back in May 2020, following and navigational bronchoscopy, which was nondiagnostic for a lesion in the right upper lobe. This most likely represents bronchogenic carcinoma. The patient never came back in follow-up. Currently, he's in the intensive care unit, as an overflow patient. He is on room air. Getting saline at 75 mL an hour. He was a bit confused overnight. Seems stable today. He somebody who can be transferred out to the general medical floor, without telemetry. White count 8.8, hemoglobin 10.3, hematocrit 33.8, and platelet count normal. Sodium 129, potassium 4.1, chlorides 101, CO2 20, BUN 5, and creatinine 0.63. Pro-calcitonin level was 0.48. Objective - Vital Signs Vital signs: Vital Signs Temp 97.5 F L 01/19/22 08:00 Pulse 80 01/19/22 08:00 Resp 16 01/19/22 08:00 BP 167/92 01/19/22 08:00 Pulse Ox 94 L 01/19/22 04:00 FiO2 Intake & Output 01/18/22 01/19/22 01/19/22 18:59 06:59 18:59 Intake Total 750 Output Total 150 1550 Balance -150 -800 Weight 65.5 kg Intake: IV 750 Sodium Chloride 0.9% 1, 750 000 ml @ 75 mls/hr IV . [id number] [facility] Rx#:[id number] Output: Urine 150 1550 Other: Voiding Method External Catheter External Catheter # Voids 4 3 - Exam No acute distress, oriented 3. Currently on room air. HEENT examination is grossly unremarkable. Neck supple. Full range of motion. No adenopathy thyromegaly or neck vein distention. Cardiovascular examination reveals regular rhythm rate. S1-S2 normal. No S3 or S4. No discernible murmur noted. Heart rate 80 beats. Lungs reveal mostly clear breath sounds. Mild bilateral scattered rhonchi. No wheezes or crackles. Breath sounds equal bilaterally. Room air saturation 95 %. Abdomen soft bowel sounds are heard. No masses or tenderness. Extremities are intact. No cyanosis clubbing or edema. Left arm is in a sling. Skin reveals multiple areas of ecchymoses and bruising. Neurologic examination is brief but nonfocal. - Labs CBC & Chem 7: 01/19/22 06:51 01/19/22 06:51 Labs: Abnormal Lab Results - Last 24 Hours (Table) 01/18/22 01/18/22 01/19/22 Range/Units 09:19 09:19 06:51 RBC 4.24 L 4.02 L (4.30-5.90) m/uL Hgb 11.2 L 10.3 L (13.0-17.5) gm/dL Hct 36.4 L 33.8 L (39.0-53.0) % MCHC 30.8 L 30.6 L (31.0-37.0) g/dL RDW 17.1 H 17.3 H (11.5-15.5) % Sodium 130 L (137-145) mmol/L Carbon Dioxide 20 L (22-30) mmol/L BUN 8 L (9-20) mg/dL Creatinine 0.64 L (0.66-1.25) mg/dL Glucose 122 H (74-99) mg/dL Alkaline Phosphatase 127 H (38-126) U/L Albumin 3.4 L (3.5-5.0) g/dL 01/19/22 Range/Units 06:51 RBC (4.30-5.90) m/uL Hgb (13.0-17.5) gm/dL Hct (39.0-53.0) % MCHC (31.0-37.0) g/dL RDW (11.5-15.5) % Sodium 129 L (137-145) mmol/L Carbon Dioxide 20 L (22-30) mmol/L BUN 5 L (9-20) mg/dL Creatinine 0.63 L (0.66-1.25) mg/dL Glucose (74-99) mg/dL Alkaline Phosphatase (38-126) U/L Albumin 3.1 L (3.5-5.0) g/dL Assessment and Plan Assessment: Weakness, with falling episodes at home, and an proximal left humeral fracture. Mild hyponatremia. Mild/moderate confusion, which may relate to narcotics, and/or mild alcohol withdrawal syndrome. Ongoing tobacco use with nicotine addiction. 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 History of hypertension. History of GERD. History of skin cancer. History of paralyzed vocal cord. Plan: Plan dated 01/17/2022. We felt the patient should have a computed tomography scan of the chest abdomen and pelvis. He apparently refused. The patient will need outpatient follow-up, including a follow-up PET scan. We will need another procedure for diagnosis. He seemed reluctant to come back and see me. He has missed several appointments in the office. Prognosis is poor. He may need placement after this hospitalization. Labs, x-rays, and medications are all reviewed. Plan dated 01/18/2022. The patient will eventually need a follow-up computed tomography scan and an outpatient PET scan. In addition, he will need another biopsy. All this can be done as an outpatient. He is currently in the hospital, as an overflow patient in the intensive care unit. He has been seen by orthopedics. He may need placement for rehabilitation and strengthening. We will continue to follow as needed. Prognosis is poor. The patient does say that he would like to have some follow-up for his lung lesion. Plan dated 01/19/2022. The patient's resting comfortably. He is on room air. He is getting saline at 75 mL an hour. He apparently was a bit confused at nighttime. He seems better today, and is not having any pain. The patient could be transferred out to the general medical floor without telemetry. Labs, x-rays, and medications are reviewed. Prognosis is guarded. He will eventually need evaluation and repeat biopsy, to the lesion, in the right upper lobe. Time with Patient: Less than 30
[2022-01-19] MEDS: HYDROcodone/APAP 7.5-325MG 1 EACH TAB PO PRN ×2 (10:01→19:49)
[2022-01-19] MEDS ORDERED: hydrALAZINE HCL 20 MG/ML 1 ML VIAL IVP PRN (20:48)
[2022-01-20] MEDS: HYDROcodone/APAP 7.5-325MG 1 EACH TAB PO PRN ×3 (01:54→16:55)
[2022-01-20] MEDS: SODIUM CHLORIDE 0.9% 1,000 ML IV SCH (06:32)
[2022-01-20] MEDS: MORPHINE SULFATE 4 MG/ML SYRINGE IV PRN ×3 (06:32→19:45)
[2022-01-20] MEDS: PANTOPRAZOLE 40 MG TABLET PO SCH ×2 (06:33→06:45)
--- NOTE | 2022-01-20 09:09 | P.PN ---
Subjective This is a pleasant 67 years old male with past medical history of GERD, hypertension, paralyzed vocal cord nicotine dependence. Patient presents because of a fall, yesterday he was carrying dtuff and put them up in the refrigerator when he lost his balance and fell on his left side and injured his left shoulder currently is complaining of from significant pain although he sits and common bed, his left arm is lying There is evidence of left humeral fracture on x-ray, orthopedic team already been contacted by emergency room physician last time as he told me DAYANA Sands when we discussed the case together. He denies any syncope, does not have headache or dizziness currently, no weakness or numbness, no chest pain or dyspnea but he has some cough and yellow phlegm for the last 2 days. No change in urine or bowel habits. No vomiting or diarrhea or dysuria or urgency. He smokes half pack per day and he was counseled to quit and he agrees to the nicotine patch. No alcohol or illicit drugs. Also patient reports injury to his right leg about one week ago and he has a small wound with Band-Aid and some mild purulent discharge with surrounding redness but no significant tenderness or swelling suspicious for cellulitis and culture has been sent. Patient has a known right upper lung mass, he told me he saw Dr. Maria as an outpatient and he is supposed to get a lung biopsy but it was canceled because his blood was all as he describes. Patient aware of the risk of cancer with this mass. Labs reviewed showing mild leukocytosis at 10.8, hemoglobin 12.2. INR is unremarkable. Sodium is 124, potassium high 5.5, creatinine normal 0.7. Glucose low 64, and repeated 201. Liver enzymes not significantly elevated. Bilirubin is high at 2.1. TSH is normal at 0.8. Troponin is negative at 0.019. Chest x-ray: Right upper lobe mass increasing in size. Interstitial bacilli pulmonary infiltrates and subsegmental atelectasis are increased compared to old exam Left arm x-ray showing proximal left humerus fracture with displacement. Left distal clavicle deformity suspicious for prior fractures in the emergency room patient received normal saline at 75 mL/h Last night when the ER DAYANA Dumont informed me about the case and discussed with me I asked him to call orthopedic on-call for his displaced femoral fracture 01/18/2022 Patient looks more awake and resting in bed however he is in mild distress due to pain in his left humerus. Orthopedic team recommended non-surgical intervention and continue with conservative management and follow-up outpatient in 1 week. He is only on IV morphine which is not large enough to control his pain, we started him on [place] 5 and we had to increase it to 7.5 mg for better control of pain. Also patient is okay to have PT/OT evaluation per orthopedic team per staff. Patient is aware of his enlarging right-sided lung mass with risk of cancer there. He wants to do follow-up. I asked him why he did not follow-up last time he told me because he forgot, I offered to family or a friend so they can remind him but he declined. Risks and benefits are explained. Patient has capacity to make decision. His leg cellulitis significantly improving. Pulmonary team input is appreciated and noted 01/19/2022 Patient awake alert his still have pain in his left humerus, orthopedic team already evaluated the patient and recommended nonsurgical treatment During this hospital stay. He rates his pain at 7/10 today. His currently ordered [place] 7.5 mg and was still in assessing his pain. Breathing is improving and fine and stable. He is aware about his lung mass and possible diagnosis of cancer and is aware, and he told me he wants to follow up with pulmonary team on the case. Patient is able to go to subacute rehab upon discharge as well. His blood pressure does not improve we will add Norv[place] 5 mg and discontinue IV fluid. Patient has been eating his breakfast and ask in fo milk to drink Objective - Vital Signs Vital signs: Vital Signs Temp 97.5 F L 01/19/22 08:00 Pulse 80 01/19/22 08:00 Resp 16 01/19/22 08:00 BP 167/92 01/19/22 08:00 Pulse Ox 94 L 01/19/22 04:00 FiO2 Intake & Output 01/18/22 01/19/22 01/19/22 18:59 06:59 18:59 Intake Total 750 Output Total 150 1550 Balance -150 -800 Weight 65.5 kg Intake: IV 750 Sodium Chloride 0.9% 1, 750 000 ml @ 75 mls/hr IV . [id number] [facility]S [facility]CLUDE [facility] BEDS AT [facility] Rx#:[id number] Output: Urine 150 1550 Other: Voiding Method External Catheter External Catheter # Voids 4 3 - Exam GENERAL: The patient is alert and oriented x3, not in any acute distress. Well developed, well nourished. HEENT: Pupils are round and equally reacting to light. EOMI. No scleral icterus. No conjunctival pallor. Normocephalic, atraumatic. No pharyngeal erythema. No thyromegaly. CARDIOVASCULAR: S1 and S2 present. No murmurs, rubs, or gallops. PULMONARY: Chest is clear to auscultation, no wheezing or crackles. ABDOMEN: Soft, nontender, nondistended, normoactive bowel sounds. No palpable organomegaly. MUSCULOSKELETAL: No joint swelling or deformity. EXTREMITIES: No cyanosis, clubbing, or pedal edema. Left upper extremity/arm in a sling NEUROLOGICAL: Gross neurological examination did not reveal any focal deficits. SKIN: No rashes. no petechiae. - Labs CBC & Chem 7: 01/19/22 06:51 01/19/22 06:51 Labs: Abnormal Lab Results - Last 24 Hours (Table) 01/18/22 01/18/22 01/19/22 Range/Units 09:19 09:19 06:51 RBC 4.24 L 4.02 L (4.30-5.90) m/uL Hgb 11.2 L 10.3 L (13.0-17.5) gm/dL Hct 36.4 L 33.8 L (39.0-53.0) % MCHC 30.8 L 30.6 L (31.0-37.0) g/dL RDW 17.1 H 17.3 H (11.5-15.5) % Sodium 130 L (137-145) mmol/L Carbon Dioxide 20 L (22-30) mmol/L BUN 8 L (9-20) mg/dL Creatinine 0.64 L (0.66-1.25) mg/dL Glucose 122 H (74-99) mg/dL Alkaline Phosphatase 127 H (38-126) U/L Albumin 3.4 L (3.5-5.0) g/dL 01/19/22 Range/Units 06:51 RBC (4.30-5.90) m/uL Hgb (13.0-17.5) gm/dL Hct (39.0-53.0) % MCHC (31.0-37.0) g/dL RDW (11.5-15.5) % Sodium 129 L (137-145) mmol/L Carbon Dioxide 20 L (22-30) mmol/L BUN 5 L (9-20) mg/dL Creatinine 0.63 L (0.66-1.25) mg/dL Glucose (74-99) mg/dL Alkaline Phosphatase (38-126) U/L Albumin 3.1 L (3.5-5.0) g/dL Assessment and Plan Assessment: Enlarging right upper lobe lung mass Electrolyte abnormality with hyponatremia and hyperkalemia Fall without syncope Acute Left humerus fracture Right leg wound with surrounding cellulitis Nicotine dependence History of GERD Hypertension History of paralyzed vocal cord Plan: This is a pleasant 67 years old male who presents with fall and humerus fracture Start the patient on Keflex and follow-up wound culture Continue with pain medication, currently on morphine IV when necessary and add [place] 7.5 mg Orthopedic consult recommended neurosurgical intervention and follow-up outpatient Pulmonary team on The case. We will defer the management of the lung mass the pulmonary team Labs and medication were reviewed.. Continue same treatment. Continue with symptomatic treatment. Resume home medication. Monitor lytes and vitals. DVT and GI prophylaxis. Further recommendations as per clinical course of the patient DVT prophylaxis: Subcutaneous heparin GI Prophylaxis: Pepcid PT/OT: Pending Prognosis is guarded
[2022-01-20] MEDS: lisinopriL 10 MG TAB PO SCH (10:11)
[2022-01-20] MEDS: amLODIPine 5 MG TAB PO SCH (10:11)
[2022-01-20] MEDS: HEPARIN SODIUM,PORCINE/PF 5,000 UNIT/0.5 ML SYRINGE SQ SCH ×2 (10:12→16:55)
[2022-01-20] MEDS: NICOTINE 21MG/24HR PATCH TRANSDERM SCH (10:12)
[2022-01-20] MEDS: CEPHALEXIN 500 MG CAP PO SCH ×3 (10:12→21:04)
--- NOTE | 2022-01-20 11:12 | P.PN ---
Subjective Progress Note Date: 01/20/22 Principal diagnosis: Lung mass. Pulmonary consult dated 01/17/2022. 67-year-old male, seen in the emergency department, on January 16. The patient arrived, via EMS, having fallen at home a couple times. He feels like his legs are very weak. He does live at home. He apparently injured his left shoulder when he fell. He denies any chest pain or chest discomfort. There is no worsening shortness of breath, cough, wheezing, or phlegm production. I saw him last in May 2020. I have been following him for a lesion in the right lung. The patient had previous navigational bronchoscopy in May 2020, that was nondiagnostic. The lesion is still present in the right lung, having gotten larger, and possibly represents bronchogenic lung cancer. The patient is continuing to smoke. Again he denies any pulmonary issues at this time. The patient has not seen his primary care physician, and some time as well. His medical history includes gastroesophageal reflux disease, paralyzed vocal cord, skin cancer, hypertension, and a lung mass, likely representing bronchogenic cancer. White count 9, hemoglobin 10.1, hematocrit 32.4, and platelet count 327,000. Sodium 128, potassium 3.7, chlorides 101, CO2 21, BUN 13, and creatinine 0.66. Chest x-ray shows a nearly 4 cm masslike density, right upper lobe. Progress note dated 01/18/2022. 67-year-old male seen in the emergency room yesterday, January 17. He initially presented the day before. The patient fell at home, and injured his left shoulder, and was determined to have a left humeral fracture. I saw him back in May 2020. The patient had a lesion in the right upper lobe, and navigational bronchoscopy was performed, but was nondiagnostic. The patient was to come back for additional testing and biopsies, and possibly referral to thoracic surgery for a wedge resection but he never came back to the office. Now the lesion is much larger. He does have a history of GERD, paralyzed vocal cord, and cancer, hypertension, and of course a lung mass, which likely represents bronchogenic carcinoma. The patient does continue to smoke. He is on room air. Is getting saline at 75 mL an hour. He has been seen by orthopedics for left humeral fracture. White count 8.9, hemoglobin 11.2, hematocrit 36 4, platelet count normal. Sodium 1:30, potassium 3.7, chlorides 101, CO2 20, anion gap 9, BUN 8, creatinine 0.64. Progress note dated 01/19/2022. 67-year-old male seen in the emergency room in consultation at couple days ago. The patient fell at home, fracturing his left humerus. The patient was seen by me back in May 2020, following and navigational bronchoscopy, which was nondiagnostic for a lesion in the right upper lobe. This most likely represents bronchogenic carcinoma. The patient never came back in follow-up. Currently, he's in the intensive care unit, as an overflow patient. He is on room air. Getting saline at 75 mL an hour. He was a bit confused overnight. Seems stable today. He somebody who can be transferred out to the general medical floor, without telemetry. White count 8.8, hemoglobin 10.3, hematocrit 33.8, and platelet count normal. Sodium 129, potassium 4.1, chlorides 101, CO2 20, BUN 5, and creatinine 0.63. Pro-calcitonin level was 0.48. Progress note dated 01/20/2022. 67-year-old male seen in the emergency room, in consultation a couple days ago. The patient fell at home, fracturing his left humerus. The patient has been seen by me in the past for a lesion in the right upper lobe. Previous navigational bronchoscopy was negative. The patient never came in for follow- up. The lesion in the right upper lobe was FDG positive by PET scan. Currently, he's on room air. He's getting saline at 75 mL an hour. He is eating, he can be discontinued. No new labs today. No new chest x-ray today. His workup for the lesion in the right upper lobe, can be done as an outpatient. Objective - Vital Signs Vital signs: Vital Signs Temp 97.5 F L 01/20/22 10:13 Pulse 84 01/20/22 10:13 Resp 14 01/20/22 10:13 BP 124/86 01/20/22 10:13 Pulse Ox 96 01/20/22 10:13 FiO2 Intake & Output 01/19/22 01/20/22 01/20/22 18:59 06:59 18:59 Intake Total 975 990 Output Total 200 Balance 975 790 Weight 67.4 kg Intake: IV 975 750 Sodium Chloride 0.9% 1, 975 750 000 ml @ 75 mls/hr IV . [id number] [facility] Rx#:[id number] Oral 240 Output: Urine 200 Other: Voiding Method Diaper Diaper Incontinent Incontinent # Voids 2 3 - Exam No acute distress, oriented 3. Currently on room air. HEENT examination is grossly unremarkable. Neck supple. Full range of motion. No adenopathy thyromegaly or neck vein distention. Cardiovascular examination reveals regular rhythm rate. S1-S2 normal. No S3 or S4. No discernible murmur noted. Heart rate 84 beats. Lungs reveal mostly clear breath sounds. Mild bilateral scattered rhonchi. No wheezes or crackles. Breath sounds equal bilaterally. Room air saturation 96 %. Abdomen soft bowel sounds are heard. No masses or tenderness. Extremities are intact. No cyanosis clubbing or edema. Left arm is in a sling. Skin reveals multiple areas of ecchymoses and bruising. Neurologic examination is brief but nonfocal. - Labs CBC & Chem 7: 01/19/22 06:51 01/19/22 06:51 Labs: Microbiology - Last 24 Hours (Table) 01/17/22 08:10 Gram Stain - Final Leg - Right Wound Culture - Final Assessment and Plan Assessment: Weakness, with falling episodes at home, and an proximal left humeral fracture. Mild hyponatremia. Mild/moderate confusion, which may relate to narcotics, and/or mild alcohol withdrawal syndrome. Ongoing tobacco use with nicotine addiction. 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 History of hypertension. History of GERD. History of skin cancer. History of paralyzed vocal cord. Plan: Plan dated 01/17/2022. We felt the patient should have a computed tomography scan of the chest abdomen and pelvis. He apparently refused. The patient will need outpatient follow-up, including a follow-up PET scan. We will need another procedure for diagnosis. He seemed reluctant to come back and see me. He has missed several appointments in the office. Prognosis is poor. He may need placement after this ho spitalization. Labs, x-rays, and medications are all reviewed. Plan dated 01/18/2022. The patient will eventually need a follow-up computed tomography scan and an outpatient PET scan. In addition, he will need another biopsy. All this can be done as an outpatient. He is currently in the hospital, as an overflow patient in the intensive care unit. He has been seen by orthopedics. He may need placement for rehabilitation and strengthening. We will continue to follow as needed. Prognosis is poor. The patient does say that he would like to have some follow-up for his lung lesion. Plan dated 01/19/2022. The patient's resting comfortably. He is on room air. He is getting saline at 75 mL an hour. He apparently was a bit confused at nighttime. He seems better today, and is not having any pain. The patient could be transferred out to the general medical floor without telemetry. Labs, x-rays, and medications are reviewed. Prognosis is guarded. He will eventually need evaluation and repeat biopsy, to the lesion, in the right upper lobe. Plan dated 01/20/2022. The patient can be transferred out of the intensive care unit. The patient is very stable at this time. Yesterday, he was a bit confused. Anyway, the patient's IV can be discontinued. He is currently on room air. Labs, x-rays, and medications are reviewed. Prognosis is guarded. Further workup for his lik magdalene bronchogenic carcinoma, and the right upper lobe, can and should be done as an outpatient. Time with Patient: Less than 30
[2022-01-20 11:30] LABS: African American GFR (CKD) >90 (>60 ml/min/1.73 sqM); Anion Gap 9 mmol/L; Blood Urea Nitrogen 5 mg/dL (9-20); Calcium 8.6 mg/dL (8.4-10.2); Carbon Dioxide 21 mmol/L (22-30); Chloride 102 mmol/L (98-107); Glucose 95 mg/dL (74-99); Non-African American GFR(CKD) >90 (>60 ml/min/1.73 sqM); Potassium 3.5 mmol/L (3.5-5.1); Sodium 132 mmol/L (137-145)
[2022-01-20] MEDS ORDERED: POTASSIUM CHLORIDE ER 20 MEQ TAB.ER PO STA (12:27)
--- NOTE | 2022-01-20 17:40 | P.PN ---
Subjective Progress Note Date: 01/20/22 Patient evaluted in the intensive care unit today pending bed on the medical floor. Sodium has improved to 132 and will continue on IV fluids with normal saline. He does admit to ongoing nicotine use as well as etoh use does state it is only a few times per week. Pulmonary recommending follow up with CT ch est/abd/pelvis however patient did receive. He continues with immobilizer sling to left upper extremity, no plans for surgical intervention from orthopedic standpoint. Discharge to subacute rehab which will most likely be on saturday. Blood pressure has improved, norvasc was added today inaddition to lisinopril. He continues on oral norco for pain management. Review of Systems Constitutional: Denied any fatigue denied any fever. Cardio vascular: denied any chest pain, palpitations Gastrointestinal: denied any nausea, vomiting, diarrhea Pulmonary: Denied any shortness of breath cough Neurologic denied any new focal deficits All inpatient medications were reviewed and appropriate changes in these medications as dictated in the interval history and assessment and plan. PHYSICAL EXAMINATION: GENERAL: The patient is alert and oriented x3, not in any acute distress. Well developed, well nourished. HEENT: Pupils are round and equally reacting to light. EOMI. No scleral icterus. No conjunctival pallor. Normocephalic, atraumatic. No pharyngeal erythema. No thyromegaly. CARDIOVASCULAR: S1 and S2 present. No murmurs, rubs, or gallops. PULMONARY: Chest is clear to auscultation, no wheezing or crackles. ABDOMEN: Soft, nontender, nondistended, normoactive bowel sounds. No palpable organomegaly. MUSCULOSKELETAL: No joint swelling or deformity. EXTREMITIES: No cyanosis, clubbing, or pedal edema. NEUROLOGICAL: Gross neurological examination did not reveal any focal deficits. SKIN: Bandage wrap to left hand. Immbolizer sling in place to left arm. Assessment and plan Assessment Enlarging right upper lobe lung mass Electrolyte abnormality with hyponatremia and hyperkalemia, improving Fall without syncope Acute Left humerus fracture Right leg wound with surrounding cellulitis Nicotine dependence History of GERD Hypertension History of paralyzed vocal cord History of frequent ETOH use GI Prophylaxis DVT Prophylaxis Full Code Plan Continue PO antibiotics Repeat BMP in AM Continue with sling and neurosurgical intervenation and follow up outpatient Pain management and bowel regimen Patient is downgraded from ICU pending bed on medical floor Subacute rehab on discharge will happen on Saturday. The impression and plan of care has been dictated by Amarilis James, Nurse Practitioner as directed. Dr. Major MD I have performed a history and physical examination and medical decision making of this patient, discussed the same with the dictator, and agree with the dictators assessment and plan as written, documented as a scribe. Based on total visit time, I have performed more than 50% of this visit. Objective - Vital Signs Vital signs: Vital Signs Temp 97.7 F 01/20/22 14:00 Pulse 84 01/20/22 14:00 Resp 14 01/20/22 14:00 BP 136/94 01/20/22 14:00 Pulse Ox 97 01/20/22 14:00 FiO2 Intake & Output 01/19/22 01/20/22 01/20/22 18:59 06:59 18:59 Intake Total 975 990 Output Total 200 350 Balance 975 790 -350 Weight 67.4 kg Intake: IV 975 750 Sodium Chloride 0.9% 1, 975 750 000 ml @ 40 mls/hr IV . Q24H [facility] Rx#:[id number] Oral 240 Output: Urine 200 350 Other: Voiding Method Diaper Diaper Diaper Incontinent Incontinent Incontinent # Voids 2 3 4 - Labs CBC & Chem 7: 01/19/22 06:51 01/20/22 10:40 Labs: Abnormal Lab Results - Last 24 Hours (Table) 01/20/22 Range/Units 10:40 Sodium 132 L (137-145) mmol/L Carbon Dioxide 21 L (22-30) mmol/L BUN 5 L (9-20) mg/dL Assessment and Plan Time with Patient: Less than 30
[2022-01-21] MEDS: HYDROcodone/APAP 7.5-325MG 1 EACH TAB PO PRN ×4 (01:03→19:49)
[2022-01-21] MEDS: HEPARIN SODIUM,PORCINE/PF 5,000 UNIT/0.5 ML SYRINGE SQ SCH ×3 (01:27→17:12)
[2022-01-21] MEDS: CEPHALEXIN 500 MG CAP PO SCH ×3 (08:12→22:30)
[2022-01-21] MEDS: lisinopriL 10 MG TAB PO SCH (08:13)
[2022-01-21] MEDS: amLODIPine 5 MG TAB PO SCH (08:13)
[2022-01-21] MEDS: PANTOPRAZOLE 40 MG TABLET PO SCH (08:13)
[2022-01-21] MEDS: NICOTINE 21MG/24HR PATCH TRANSDERM SCH (08:13)
--- NOTE | 2022-01-21 11:35 | P.PN ---
Subjective Progress Note Date: 01/21/22 Pulmonary consult dated 01/17/2022. 67-year-old male, seen in the emergency department, on January 16. The patient arrived, via EMS, having fallen at home a couple times. He feels like his legs are very weak. He does live at home. He apparently injured his left shoulder when he fell. He denies any chest pain or chest discomfort. There is no worsening shortness of breath, cough, wheezing, or phlegm production. I saw him last in May 2020. I have been following him for a lesion in the right lung. The patient had previous navigational bronchoscopy in May 2020, that was nondiagnostic. The lesion is still present in the right lung, having gotten larger, and possibly represents bronchogenic lung cancer. The patient is continuing to smoke. Again he denies any pulmonary issues at this time. The patient has not seen his primary care physician, and some time as well. His medical history includes gastroesophageal reflux disease, paralyzed vocal cord, skin cancer, hypertension, and a lung mass, likely representing bronchogenic cancer. White count 9, hemoglobin 10.1, hematocrit 32.4, and platelet count 327,000. Sodium 128, potassium 3.7, chlorides 101, CO2 21, BUN 13, and creat inine 0.66. Chest x-ray shows a nearly 4 cm masslike density, right upper lobe. Progress note dated 01/18/2022. 67-year-old male seen in the emergency room yesterday, January 17. He initially presented the day before. The patient fell at home, and injured his left shoulder, and was determined to have a left humeral fracture. I saw him back in May 2020. The patient had a lesion in the right upper lobe, and navigational bronchoscopy was performed, but was nondiagnostic. The patient was to come back for additional testing and biopsies, and possibly referral to thoracic surgery for a wedge resection but he never came back to the office. Now the lesion is much larger. He does have a history of GERD, paralyzed vocal cord, and cancer, hypertension, and of course a lung mass, which likely represents bronchogenic carcinoma. The patient does continue to smoke. He is on room air. Is getting saline at 75 mL an hour. He has been seen by orthopedics for left humeral fracture. White count 8.9, hemoglobin 11.2, hematocrit 36 4, platelet count normal. Sodium 1:30, potassium 3.7, chlorides 101, CO2 20, anion gap 9, BUN 8, creatinine 0.64. Progress note dated 01/19/2022. 67-year-old male seen in the emergency room in consultation at couple days ago. The patient fell at home, fracturing his left humerus. The patient was seen by me back in May 2020, following and navigational bronchoscopy, which was nondiagnostic for a lesion in the right upper lobe. This most likely represents bronchogenic carcinoma. The patient never came back in follow-up. Currently, he's in the intensive care unit, as an overflow patient. He is on room air. Getting saline at 75 mL an hour. He was a bit confused overnight. Seems stable today. He somebody who can be transferred out to the general medical floor, without telemetry. White count 8.8, hemoglobin 10.3, hematocrit 33.8, and platelet count normal. Sodium 129, potassium 4.1, chlorides 101, CO2 20, BUN 5, and creatinine 0.63. Pro-calcitonin level was 0.48. Progress note dated 01/20/2022. 67-year-old male seen in the emergency room, in consultation a couple days ago. The patient fell at home, fracturing his left humerus. The patient has been seen by me in the past for a lesion in the right upper lobe. Previous jose igational bronchoscopy was negative. The patient never came in for follow-up. The lesion in the right upper lobe was FDG positive by PET scan. Currently, he's on room air. He's getting saline at 75 mL an hour. He is eating, he can be discontinued. No new labs today. No new chest x-ray today. His workup for the lesion in the right upper lobe, can be done as an outpatient. The patient is seen today 01/21/2022 in follow-up on the regular medical floor. He is currently awake and alert in no acute distress. Resting fairly comfortably in bed. His left shoulder pain is under better control. Remains in a sling. Culture of the right leg wound shows no growth. No new labs today. He remains on Keflex. Heparin for DVT prophylaxis. NicoDerm patch in place. Objective - Vital Signs Vital signs: Vital Signs Temp 98.0 F 01/21/22 02:00 Pulse 79 01/21/22 08:00 Resp 18 01/21/22 08:00 BP 153/89 01/21/22 08:00 Pulse Ox 96 01/21/22 08:00 FiO2 Intake & Output 01/20/22 01/21/22 01/21/22 18:59 06:59 18:59 Output Total 350 Balance -350 Output: Urine 350 Other: Voiding Method Diaper External Catheter External Catheter Incontinent # Voids 4 3 - Exam GENERAL EXAM: Alert, pleasant 67-year-old male patient, appears older than stated age, on room air, fairly comfortable in no apparent distress. HEAD: Normocephalic. EYES: Normal reaction of pupils, equal size. NOSE: Clear with pink turbinates. THROAT: No erythema or exudates. NECK: No masses, no JVD. CHEST: No chest wall deformity. LUNGS: Equal air entry with bilateral scattered rhonchi. CVS: S1 and S2 normal with no audible murmur, regular rhythm. ABDOMEN: No hepatosplenomegaly, normal bowel sounds, no guarding or rigidity. SPINE: No scoliosis or deformity SKIN: No rashes CENTRAL NERVOUS SYSTEM: No focal deficits, tone is normal in all 4 extremities. EXTREMITIES: Left upper extremity in a sling. There is no peripheral edema. No clubbing, no cyanosis. Peripheral pulses are intact. - Labs CBC & Chem 7: 01/19/22 06:51 01/20/22 10:40 Labs: Abnormal Lab Results - Last 24 Hours (Table) 01/20/22 Range/Units 10:40 Sodium 132 L (137-145) mmol/L Carbon Dioxide 21 L (22-30) mmol/L BUN 5 L (9-20) mg/dL Assessment and Plan Assessment: Weakness, with falling episodes at home, and an proximal left humeral fracture. Left upper extremity in a sling. Mild hyponatremia, improved currently at 132. Mild/moderate confusion, which may relate to narcotics, and/or mild alcohol withdrawal syndrome. Ongoing tobacco use with nicotine addiction. Mass, right upper lobe, likely representing bronchogenic carcinoma, with a non diagnostic navigational bronchoscopy in May 2020. History of hypertension. History of GERD. History of skin cancer. History of paralyzed vocal cord. Plan: The patient was seen and evaluated Currently stable and on room air Plan is for possible inpatient rehab versus subacute rehabilitation I have personally seen and examined the patient, performed the documentation and the assessment and plan as written. Number of minutes spent on the visit: 10.
[2022-01-21 12:37] LABS: African American GFR (CKD) 113.2 (60.0-200.0); BUN/Creat Ratio 12.86 Ratio (12.00-20.00); Calcium 8.7 mg/dL (8.7-10.3); Non-African American GFR(CKD) 97.7 (60.0-200.0); Potassium 4.7 mmol/L (3.5-5.5)
--- NOTE | 2022-01-21 16:20 | P.PN ---
Subjective Progress Note Date: 01/21/22 Patient evaluted in the intensive care unit today pending bed on the medical floor. Sodium has improved to 132 and will continue on IV fluids with normal saline. He does admit to ongoing nicotine use as well as etoh use does state it is only a few times per week. Pulmonary recommending follow up with CT ch est/abd/pelvis however patient did receive. He continues with immobilizer sling to left upper extremity, no plans for surgical intervention from orthopedic standpoint. Discharge to subacute rehab which will most likely be on saturday. Blood pressure has improved, norvasc was added today inaddition to lisinopril. He continues on oral norco for pain management. 01/21/2022 Patient evaluated today resting in bed, states he feels fatigued. Wearing sling to left arm. Denies pain. Sodium today 131, potassium 4.7, BUN 9.0, creatinine 0.7. Patient continues off IV fluids. Blood pressure today 130/81. Plan for discharge to rehab on saturday. Continue with colace while using narcotics for pain management. Review of Systems Constitutional: Reports fatigue denied any fever. Cardio vascular: denied any chest pain, palpitations Gastrointestinal: denied any nausea, vomiting, diarrhea Pulmonary: Denied any shortness of breath cough Neurologic denied any new focal deficits All inpatient medications were reviewed and appropriate changes in these medications as dictated in the interval history and assessment and plan. PHYSICAL EXAMINATION: GENERAL: The patient is alert and oriented x3, not in any acute distress. Well developed, well nourished. HEENT: Pupils are round and equally reacting to light. EOMI. No scleral icterus. No conjunctival pallor. Normocephalic, atraumatic. No pharyngeal erythema. No thyromegaly. CARDIOVASCULAR: S1 and S2 present. No murmurs, rubs, or gallops. PULMONARY: Chest is clear to auscultation, no wheezing or crackles. ABDOMEN: Soft, nontender, nondistended, normoactive bowel sounds. No palpable organomegaly. MUSCULOSKELETAL: No joint swelling or deformity. EXTREMITIES: No cyanosis, clubbing, or pedal edema. NEUROLOGICAL: Gross neurological examination did not reveal any focal deficits. SKIN: Bandage wrap to left hand. Immbolizer sling in place to left arm. Assessment and plan Assessment Enlarging right upper lobe lung mass Electrolyte abnormality with hyponatremia and hyperkalemia, improving Fall without syncope Acute Left humerus fracture Right leg wound with surrounding cellulitis Nicotine dependence History of GERD Hypertension History of paralyzed vocal cord History of frequent ETOH use GI Prophylaxis DVT Prophylaxis Full Code Plan Continue PO antibiotics Repeat BMP in AM Continue with sling, neurosurgical intervention and follow up outpatient Pain management and bowel regimen Subacute rehab on discharge pending for Saturday. The impression and plan of care has been dictated by Amarilis James, Nurse Practitioner as directed. Dr. Major MD I have performed a history and physical examination and medical decision making of this patient, discussed the same with the dictator, and agree with the dictators assessment and plan as written, documented as a scribe. Based on total visit time, I have performed more than 50% of this visit. Objective - Vital Signs Vital signs: Vital Signs Temp 98.3 F 01/21/22 15:07 Pulse 79 01/21/22 15:07 Resp 16 01/21/22 15:07 BP 130/81 01/21/22 15:07 Pulse Ox 98 01/21/22 15:07 FiO2 Intake & Output 01/20/22 01/21/22 01/21/22 18:59 06:59 18:59 Output Total 350 Balance -350 Output: Urine 350 Other: Voiding Method Diaper External Catheter External Catheter Incontinent # Voids 4 3 - Labs CBC & Chem 7: 01/19/22 06:51 01/21/22 06:41 Labs: Abnormal Lab Results - Last 24 Hours (Table) 01/21/22 Range/Units 06:41 Sodium 131 L (135-145) mmol/L Anion Gap 7.00 L (10.00-18.00) mmol/L Assessment and Plan Time with Patient: Less than 30
[2022-01-22] MEDS: HEPARIN SODIUM,PORCINE/PF 5,000 UNIT/0.5 ML SYRINGE SQ SCH ×4 (00:14→23:31)
[2022-01-22] MEDS: HYDROcodone/APAP 7.5-325MG 1 EACH TAB PO PRN ×4 (00:53→20:02)
--- NOTE | 2022-01-22 05:52 | P.CONS ---
History of Present Illness - Chief Complaint Walking difficulty - History of Present Illness I had the opportunity to see patient for inpatient rehab consultation with regard to walking difficulty. Patient admitted to Dr. Judi Waite, January 16 history of fall and kitchen and left shoulder pain. X-ray demonstrated proximal humeral fracture with displacement and suspicious old healed left clavicle fracture. Chest x-ray with right upper lobe mass, infiltrates versus atelectasis, known. Seen by Dr. Garcia for the right upper lobe mass with associated vocal cord paralysis. Seen by Dr. Gaviria who recommended sling and a follow-up in office. His started therapies. PT reports two-person total assist for bed mobility and sitting up and moderate assistance to stand. Unable to take steps. Recommending subacute rehab. OT reports supervision feeding, minimal assistance for grooming, maximal assistance for upper dressing and bathing, 2 person maximal assistance lower dressing and toileting and two-person moderate assistance functional ability transfer. Patient seen January 19 and declined treatment January 20. Previous functional history as elicited from patient: 67-year-old right-handed white male who is lives in a trailer home alone. Retired. Describes independent with cooking, laundry, standing shower and gait without device. Does not drive. PCP Dr. Plata. Smokes less than half pack per day and has occasional drink. Review of Systems Review of systems: ENT: Denies sneezes or discharge. Eyes: Denies discharge or photophobia. Cardiac: Denies chest pain or palpitation. Pulmonary: Denies cough or shortness of breath. Gastrointestinal: Denies nausea, emesis, constipation, diarrhea. Genitourinary: Denies discharge or frequency. Musculoskeletal: Left shoulder and arm discomfort with movement. Neurologic: Unsteadiness of gait with history of frequent falls. Endocrine: Denies shakes or sweats. Oncology: Denies cancers. Dermatologic: Denies rash, itching, pruritus. ALLERGY/immunology: Denies sneezes, rashes. Past Medical History Past Medical History: Cancer, GERD/Reflux, Hypertension Additional Past Medical History / Comment(s): paralyzed vocal cord, SKIN CANCER(FACE), mass in lungs History of Any Multi-Drug Resistant Organisms: None Reported Past Surgical History: Orthopedic Surgery Additional Past Surgical History / Comment(s): triple endoscopy, LT KNEE SCOPE, LT KNEE MENISCUS SX Past Anesthesia/Blood Transfusion Reactions: No Reported Reaction Additional Past Anesthesia/Blood Transfusion Reaction / Comm: . Past Psychological History: No Psychological Hx Reported Additional Psychological History / Comment(s): . Smoking Status: Current every day smoker Past Alcohol Use History: None Reported Past Drug Use History: None Reported - Past Family History Father Family Medical History: Congestive Heart Failure (CHF), Myocardial Infarction ([place]) Mother Family Medical History: No Reported History Additional Family Medical History / Comment(s): MOM IS IN GOOD HEALTH AT AGE 96 Medications and Allergies Home Medications Medication Instructions Recorded Confirmed Type Omeprazole Magnesium [PriLOSEC OTC] 20 mg PO DAILY PRN 06/14/21 01/17/22 History Acetaminophen Tab [Tylenol] 1,000 mg PO Q6H PRN 10/11/21 01/17/22 History Famotidine [Pepcid] 20 mg PO DAILY PRN 10/11/21 01/17/22 History diphenhydrAMINE [Benadryl] 25 - 50 mg PO HS PRN 10/11/21 01/17/22 History Allergies Allergy/AdvReac Type Severity Reaction Status Date / Time No Known Allergies Allergy Verified 01/16/22 21:46 Physical Exam Vitals: Vital Signs Temp Pulse Resp BP Pulse Ox 01/22/22 01:38 98.1 F 95 20 180/94 96 01/21/22 20:00 98.2 F 88 18 173/95 96 01/21/22 15:07 98.3 F 79 16 130/81 98 01/21/22 08:00 79 18 153/89 96 Intake and Output 01/21/22 01/21/22 01/22/22 14:59 22:59 06:59 Other: Voiding Method External Catheter Skin: Atrophic, intact. General: Thin build and comfortable appearance. Head: Normocephalic, atraumatic. Eyes: Symmetric. Pupils equal round. Ears: Symmetric. Hearing within normal limits. Mouth: Clear. Neck: Supple. Carotid without bruit. Cardiac: Regular rate and rhythm. Lungs: Clear anteriorly and posteriorly. Abdomen: Soft active nontender. Extremities: Normal tone. Thin limbs. Neurological: Mental status: Alert, cooperative, pleasant. Cranial nerves: Symmetric facial tone and trapezius. Motor: Active movement elevation off of bed right arm and both legs. Left arm w ith giveaway weakness especially left shoulder. Sensation: Intact throughout. DTRs: Symmetric and equal throughout. Mobility: Did not attempt to sit or stand this early a.m. Results CBC & Chem 7: 01/19/22 06:51 01/21/22 06:41 Labs: Abnormal Lab Results - Last 24 Hours (Table) 01/21/22 Range/Units 06:41 Sodium 131 L (135-145) mmol/L Anion Gap 7.00 L (10.00-18.00) mmol/L Assessment and Plan (1) Closed fracture of proximal end of left humerus Current Visit: Yes Status: Acute Code(s): S42.202A - UNSP FRACTURE OF UPPER END OF LEFT HUMERUS, INIT FOR CLOS FX SNOMED Code(s): 35691046 (2) Fall Current Visit: Yes Status: Acute Code(s): W19.XXXA - UNSPECIFIED FALL, INITIAL ENCOUNTER SNOMED Code(s): 9908833 (3) Uncontrolled hypertension Current Visit: Yes Status: Acute Code(s): I10 - ESSENTIAL (PRIMARY) HYPERTENSION SNOMED Code(s): 39668153 (4) Alcoholic Current Visit: No Status: Acute Code(s): F10.20 - ALCOHOL DEPENDENCE, UNC OMPLICATED SNOMED Code(s): 5132542 (5) Altered mental status Current Visit: No Status: Acute Code(s): R41.82 - ALTERED MENTAL STATUS, UNSPECIFIED SNOMED Code(s): 626943757 Plan: Comments and plan: At this time discussed possible inpatient rehab with patient. PT at least recommends subacute rehab at this time rather than full inpatient rehabilitation. Anticipate insurance may require updated therapy notes today pr ior to consideration of inpatient rehab decision.
[2022-01-22 09:00] LABS: African American GFR (CKD) 107.1 (60.0-200.0); Anion Gap 11.1 mmol/L (10.00-18.00); BUN/Creat Ratio 11.88 Ratio (12.00-20.00); Blood Urea Nitrogen 9.5 mg/dL (9.0-27.0); Calcium 9.5 mg/dL (8.7-10.3); Carbon Dioxide 22.9 mmol/L (20.0-27.5); Non-African American GFR(CKD) 92.4 (60.0-200.0); Potassium 4.8 mmol/L (3.5-5.5)
[2022-01-22] MEDS: NICOTINE 21MG/24HR PATCH TRANSDERM SCH (09:18)
[2022-01-22] MEDS: lisinopriL 10 MG TAB PO SCH (09:18)
[2022-01-22] MEDS: CEPHALEXIN 500 MG CAP PO SCH ×3 (09:18→22:22)
[2022-01-22] MEDS: PANTOPRAZOLE 40 MG TABLET PO SCH (09:18)
[2022-01-22] MEDS: amLODIPine 10 MG TAB PO SCH (09:18)
--- NOTE | 2022-01-22 12:58 | P.DS ---
Providers Date of admission: 01/16/22 21:50 Attending physician: Rigoberto Trejo MD Consults: 01/17/22 00:56 Consult Physician Stat Consulting Provider: Bright Gaviria Consult Reason/Comments: Left proximal humerus fracture, closed Do you want consulting provider notified?: Already Contacted 01/17/22 08:21 Consult Physician Routine Consulting Provider: Mann Garcia Consult Reason/Comments: Lung mass Right upper lobe Do you want consulting provider notified?: Yes 01/21/22 09:16 Consult Physician Routine Consulting Provider: Parish Bustamante Consult Reason/Comments: inpatient rehab evaluation Do you want consulting provider notified?: Yes Primary care physician: See [facility] Course: Diagnosis Enlarging right upper lobe lung mass without patient follow up Electrolyte abnormality with hyponatremia and hyperkalemia, improving Fall without syncope Acute Left humerus fracture Right leg wound with surrounding cellulitis, improving, culture negative Nicotine dependence History of GERD Hypertension History of paralyzed vocal cord History of frequent ETOH use Full Code Discharge Disposition Patient is stable for discharge to rehab today. Subacute versus inpatient rehab. Sodium level has improved up to 132, repeat level in 2 to 3 days. Follow up with primary care, also follow up with pulmonary outpatient for work up for right upper lobe mass. Patient advised for total alcohol and tobacco cessation. Verbalizes understanding. Hospital Course This is a pleasant 67 years old male with past medical history of GERD, hypertension, paralyzed vocal cord nicotine dependence, patient also reports frequent alcohol use, reports drinking budlight. He does have multiple hospital admissions for hyponatremia. Patient presents because of a fall, due to losing balance and fell on his left side and injured his left shoulder currently is complaining of from significant pain to the left shoulder and arm, his left arm is lying. There is evidence of left humeral fracture on x-ray, orthopedics was consulted for evaluation. He denies any syncope, does not have headache or dizziness currently, no weakness or numbness, no chest pain or dyspnea but he has some cough and yellow phlegm for the last 2 days. No change in urine or bowel habits. No vomiting or diarrhea or dysuria or urgency. He smokes half pack per day and he was counseled to quit and he agrees to the nicotine patch. Also patient reports injury to his right leg about one week ago and he has a small wound with Band-Aid and some mild purulent discharge with surrounding redness but no significant tenderness or swelling suspicious for cellulitis and culture has been sent. Patient has a known right upper lung mass, he told me he saw Dr. Garcia as an outpatient and he is supposed to get a lung biopsy but has patient has not followed up. Patient aware of the risk of cancer with this mass. On admission, Labs reviewed showing mild leukocytosis at 10.8, hemoglobin 12.2. INR is unremarkable. Sodium is 124, potassium high 5.5, creatinine normal 0.7. Glucose low 64, and repeated 201. Liver enzymes not significantly elevated. Bilirubin is high at 2.1. TSH is normal at 0.8. Troponin is negative at 0.019. Chest x-ray: Right upper lobe mass increasing in size. Interstitial bacilli pulmonary infiltrates and subsegmental atelectasis are increased compared to old exam Left arm x-ray showing proximal left humerus fracture with displacement. Left distal clavicle deformity suspicious for prior fractures in the emergency room patient received normal saline at 75 mL/h. Patient was monitored in ICU for hyponatremia as sodium was found to be 124, which did improved up to 132 with IV hydration with normal saline. He was then transfered to medical floor and monitored over the weekend. Also there is work up for lung mass, he did not wish to undergo chest CT while inpatient for further evaluation as he is in pain and having mobility issues from his left proximal humerus fracture. Orthopedics has evaluated patient and recommending immobilizer sling and will see the patient on discharge. Pain management with norco 7.5 q6 hour and also lidocaine patch has been added today. Dr Garcia evaluated the patient this admission and will follow up on discharge for outpatient CT and patient is agreeable to this plan. Patient was also started on lisinopril 10 mg po daily as well as amlodipine 10 mg po daily for blood p ressure control. Will complete 14 days total of oral keflex, his leg has improved has scabbed over and culture is showing normal skin jg. No peripheral edema noted. Continues to verbalize understanding of need for total alcohol and smoking cessation and he is agreeable to rehab on discharge. He would like to go for inpatient rehab, Dr Bustamante was consulted for evaluation. PT/OT to re evaluate patient and decide subacute rehab versus inpatient rehab. 01/22/2022 Patient today sitting up in chair. He is alert x 3 and overall states he is feeling better. He is agreeable to rehab today. Does report pain rating 6/10 in his left shoulder and clavicle. He is receiving norco as well as lidocaine patch. Patients lungs are clear, S1 S2 auscultated, abdomen is soft and nontender. He is tolerating diet and states his bowels are moving. Patient will need a new immobilizer sling for discharge. Complete 14 days total of oral keflex. Repeat labs in 2 to 3 days outapatient. Most recent labs showing white count 8.8, hgb 10.3, sodium 132, potassium 4.8, BUN 9.5, creatinine 0.8, glucose 92. Patient is afebrile, heart rate 63, blood pressure 144/73, 97% room air. Total time taken in discharge planning greater than 35 minutes. Please see medication reconciliation for a list of current medication. Thank you for allowing us to participate in the care of this patient. The impression and plan of care has been dictated by Amarilis James, Nurse Practitioner as directed. Dr. Major MD I have performed a history and physical examination and medical decision making of this patient, discussed the same with the dictator, and agree with the dictators assessment and plan as written, documented as a scribe. Based on total visit time, I have performed more than 50% of this visit. , i Patient Condition at Discharge: Fair Plan - Discharge Summary Discharge Rx Participant: No New Discharge Prescriptions: New Docusate [Colace] 100 mg PO BID PRN cap PRN Reason: Constipation Cephalexin [Keflex] 500 mg PO TID 8 Days cap amLODIPine [Norvasc] 10 mg PO DAILY tab Lidocaine 5% Patch [Lidoderm 5% Patch] 1 patch TOPICAL DAILY #2 patch Nicotine 21Mg/24Hr Patch [Habitrol] 1 patch TRANSDERM DAILY patch HYDROcodone/APAP 7.5-325MG [[place] 7.5-325] 1 each PO Q6HR PRN #3 tab PRN Reason: MODERATE Pain Acetaminophen Tab [Tylenol] 650 mg PO Q6HR PRN tab PRN Reason: Mild Pain Or Fever > 100.5 lisinopriL [Zestril] 10 mg PO DAILY tab Continue Omeprazole Magnesium [PriLOSEC OTC] 20 mg PO DAILY PRN PRN Reason: Heartburn Famotidine [Pepcid] 20 mg PO DAILY PRN PRN Reason: Heartburn Discontinued diphenhydrAMINE [Benadryl] 25 - 50 mg PO HS PRN PRN Reason: Insomnia Acetaminophen Tab [Tylenol] 1,000 mg PO Q6H PRN PRN Reason: Fever And/ Or Pain Discharge Medication List Omeprazole Magnesium [PriLOSEC OTC] 20 mg PO DAILY PRN 06/14/21 [History] Famotidine [Pepcid] 20 mg PO DAILY PRN 10/11/21 [History] Acetaminophen Tab [Tylenol] 650 mg PO Q6HR PRN tab 01/22/22 [Rx] Cephalexin [Keflex] 500 mg PO TID 8 Days cap 01/22/22 [Rx] Docusate [Colace] 100 mg PO BID PRN cap 01/22/22 [Rx] HYDROcodone/APAP 7.5-325MG [[place] 7.5-325] 1 each PO Q6HR PRN #3 tab 01/22/22 [Rx] Lidocaine 5% Patch [Lidoderm 5% Patch] 1 patch TOPICAL DAILY #2 patch 01/22/22 [Rx] Nicotine 21Mg/24Hr Patch [Habitrol] 1 patch TRANSDERM DAILY patch 01/22/22 [Rx] amLODIPine [Norvasc] 10 mg PO DAILY tab 01/22/22 [Rx] lisinopriL [Zestril] 10 mg PO DAILY tab 01/22/22 [Rx] Follow up Appointment(s)/Referral(s): See Plata III, MD [Primary Care Provider] - 1-2 days Mann Garcia DO [Doctor of Osteopathic Medicine] - 1 Week Bright Gaviria MD [STAFF PHYSICIAN] - 1 Week Ambulatory/Diagnostic Orders: Basic Metabolic Panel [LAB.AMB] Time Frame: 3 Days, Location: None Selected Activity/Diet/Wound Care/Special Instructions: Continue with norco for pain management as well as lidocaine patch Repeat BMP in 2 to 3 days to monitor sodium level Continue with left arm in immobilizer sling Follow up with orthopedics as recommended Advised for total alcohol and tobacco cessation Continue with nicotine patch Discharge Disposition: TRANSFER TO SNF/ECF
--- NOTE | 2022-01-22 13:31 | P.PN ---
Subjective Progress Note Date: 01/22/22 01/22/2022, patient is being seen for a follow-up. Patient is currently on a medical floor. The patient is stable for now. The patient is known to have advanced COPD. The patient also has large lung masses noted on a chest x-ray and previous CAT scan of the chest. Nevertheless, previous bronchoscopy was nondiagnostic and the patient is going to be followed up in our office for a repeat bronchoscopy once he is under more stable condition. The patient is being considered for rehab discharge. His sodium level was low at the time of admission the sodium level is improved. He has generalized weakness. He has had a left humeral fracture and the patient is wearing a sling for now. Patient is under adequate control and no plans to undergo any form of surgery at this point in time. He is tolerating his diet. No nausea. No vomiting. No abdominal pain. He stayed on room air oxygen. Review of the blood work and electrodes are all within normal limits. No renal function. Objective - Vital Signs Vital signs: Vital Signs Temp 97.7 F 01/22/22 08:00 Pulse 63 01/22/22 08:00 Resp 17 01/22/22 08:00 BP 144/73 01/22/22 08:00 Pulse Ox 97 01/22/22 08:00 FiO2 Intake & Output 01/21/22 01/22/22 01/22/22 18:59 06:59 18:59 Output Total 600 Balance -600 Output: Urine 600 Other: Voiding Method External Catheter External Catheter - Exam GENERAL EXAM: Alert, pleasant 67-year-old male patient, appears older than stated age, on room air, fairly comfortable in no apparent distress. The patient is currently on room air oxygen. HEAD: Normocephalic. EYES: Normal reaction of pupils, equal size. NOSE: Clear with pink turbinates. THROAT: No erythema or exudates. NECK: No masses, no JVD. CHEST: No chest wall deformity. LUNGS: Equal air entry with bilateral scattered rhonchi. CVS: S1 and S2 normal with no audible murmur, regular rhythm. ABDOMEN: No hepatosplenomegaly, normal bowel sounds, no guarding or rigidity. SPINE: No scoliosis or deformity SKIN: No rashes CENTRAL NERVOUS SYSTEM: No focal deficits, tone is normal in all 4 extremities. EXTREMITIES: Left upper extremity in a sling. There is no peripheral edema. No clubbing, no cyanosis. Peripheral pulses are intact. - Labs CBC & Chem 7: 01/19/22 06:51 01/22/22 05:59 Labs: Abnormal Lab Results - Last 24 Hours (Table) 01/22/22 Range/Units 05:59 Sodium 132 L (135-145) mmol/L BUN/Creatinine Ratio 11.88 L (12.00-20.00) Ratio Assessment and Plan Plan: Weakness, multifactorial, probably related to electrodes imbalance and hyponatre oneyda History of fall with falling episodes at home, and an proximal left humeral fracture. Left upper extremity in a sling. Nonsurgical and the patient continues to have a sling Mild hyponatremia, improved currently at 132. Mild/moderate confusion, which may relate to narcotics, and/or mild alcohol withdrawal syndrome. Ongoing tobacco use with nicotine addiction. 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 History of hypertension. History of GERD. History of skin cancer. History of paralyzed vocal cord. Plan Electrolytes are stable Patient is going to be evaluated by rehab and the patient may be a candidate for ECF Operation bronchoscopy I elected for malignancy based on x-ray findings on the CAT scan findings
--- NOTE | 2022-01-22 14:23 | P.PN ---
Progress Note - Text PT/OT both report poor endurance for therapy. Poor discharge plan, so recommend STACIE, currently.
[2022-01-22] MEDS: LIDOCAINE 5% PATCH TOPICAL SCH (16:18)
[2022-01-23] MEDS: HYDROcodone/APAP 7.5-325MG 1 EACH TAB PO PRN ×3 (02:01→15:01)
[2022-01-23 03:06] VITALS: RESP 16
[2022-01-23] MEDS: amLODIPine 10 MG TAB PO SCH (08:19)
[2022-01-23] MEDS: CEPHALEXIN 500 MG CAP PO SCH ×2 (08:19→15:02)
[2022-01-23] MEDS: lisinopriL 10 MG TAB PO SCH (08:19)
[2022-01-23] MEDS: PANTOPRAZOLE 40 MG TABLET PO SCH (08:20)
[2022-01-23] MEDS: HEPARIN SODIUM,PORCINE/PF 5,000 UNIT/0.5 ML SYRINGE SQ SCH ×2 (08:20→15:04)
[2022-01-23] MEDS: NICOTINE 21MG/24HR PATCH TRANSDERM SCH (08:20)
[2022-01-23 12:22] VITALS: BMI 22.6
--- NOTE | 2022-01-23 12:54 | P.PN ---
Subjective Progress Note Date: 01/23/22 Pulmonary consult dated 01/17/2022. 67-year-old male, seen in the emergency department, on January 16. The patient arrived, via EMS, having fallen at home a couple times. He feels like his legs are very weak. He does live at home. He apparently injured his left shoulder when he fell. He denies any chest pain or chest discomfort. There is no worsening shortness of breath, cough, wheezing, or phlegm production. I saw him last in May 2020. I have been following him for a lesion in the right lung. The patient had previous navigational bronchoscopy in May 2020, that was nondiagnostic. The lesion is still present in the right lung, having gotten larger, and possibly represents bronchogenic lung cancer. The patient is continuing to smoke. Again he denies any pulmonary issues at this time. The patient has not seen his primary care physician, and some time as well. His medical history includes gastroesophageal reflux disease, paralyzed vocal cord, skin cancer, hypertension, and a lung mass, likely representing bronchogenic cancer. White count 9, hemoglobin 10.1, hematocrit 32.4, and platelet count 327,000. Sodium 128, potassium 3.7, chlorides 101, CO2 21, BUN 13, and creat inine 0.66. Chest x-ray shows a nearly 4 cm masslike density, right upper lobe. Progress note dated 01/18/2022. 67-year-old male seen in the emergency room yesterday, January 17. He initially presented the day before. The patient fell at home, and injured his left shoulder, and was determined to have a left humeral fracture. I saw him back in May 2020. The patient had a lesion in the right upper lobe, and navigational bronchoscopy was performed, but was nondiagnostic. The patient was to come back for additional testing and biopsies, and possibly referral to thoracic surgery for a wedge resection but he never came back to the office. Now the lesion is much larger. He does have a history of GERD, paralyzed vocal cord, and cancer, hypertension, and of course a lung mass, which likely represents bronchogenic carcinoma. The patient does continue to smoke. He is on room air. Is getting saline at 75 mL an hour. He has been seen by orthopedics for left humeral fracture. White count 8.9, hemoglobin 11.2, hematocrit 36 4, platelet count normal. Sodium 1:30, potassium 3.7, chlorides 101, CO2 20, anion gap 9, BUN 8, creatinine 0.64. Progress note dated 01/19/2022. 67-year-old male seen in the emergency room in consultation at couple days ago. The patient fell at home, fracturing his left humerus. The patient was seen by me back in May 2020, following and navigational bronchoscopy, which was nondiagnostic for a lesion in the right upper lobe. This most likely represents bronchogenic carcinoma. The patient never came back in follow-up. Currently, he's in the intensive care unit, as an overflow patient. He is on room air. Getting saline at 75 mL an hour. He was a bit confused overnight. Seems stable today. He somebody who can be transferred out to the general medical floor, without telemetry. White count 8.8, hemoglobin 10.3, hematocrit 33.8, and platelet count normal. Sodium 129, potassium 4.1, chlorides 101, CO2 20, BUN 5, and creatinine 0.63. Pro-calcitonin level was 0.48. Progress note dated 01/20/2022. 67-year-old male seen in the emergency room, in consultation a couple days ago. The patient fell at home, fracturing his left humerus. The patient has been seen by me in the past for a lesion in the right upper lobe. Previous jose igational bronchoscopy was negative. The patient never came in for follow-up. The lesion in the right upper lobe was FDG positive by PET scan. Currently, he's on room air. He's getting saline at 75 mL an hour. He is eating, he can be discontinued. No new labs today. No new chest x-ray today. His workup for the lesion in the right upper lobe, can be done as an outpatient. The patient is seen today 01/21/2022 in follow-up on the regular medical floor. He is currently awake and alert in no acute distress. Resting fairly comfortably in bed. His left shoulder pain is under better control. Remains in a sling. Culture of the right leg wound shows no growth. No new labs today. He remains on Keflex. Heparin for DVT prophylaxis. NicoDerm patch in place. The patient is seen today 01/23/2022 in follow-up on the regular medical floor. He is currently sitting up in a chair at the bedside. He is awake and alert. Maintaining good O2 saturations in the mid 90s on room air. Afebrile. Pain is fairly well controlled. Left arm remains in sling. No new labs today. He did not meet qualifications for inpatient rehabilitation. The plan is for subacute rehabilitation possibly today. Objective - Vital Signs Vital signs: Vital Signs Temp 98.1 F 01/23/22 08:00 Pulse 98 01/23/22 08:00 Resp 16 01/23/22 09:40 BP 133/87 01/23/22 08:00 Pulse Ox 95 01/23/22 08:00 FiO2 Intake & Output 01/22/22 01/23/22 01/23/22 18:59 06:59 18:59 Output Total 850 Balance -850 Weight 67.4 kg Output: Urine 850 Other: Voiding Method External Catheter Diaper Diaper Incontinent Incontinent # Voids 2 2 # Bowel Movements 1 - Exam GENERAL EXAM: Alert, pleasant 67-year-old male patient, in a chair at the bedside, on room air, fairly comfortable in no apparent distress. HEAD: Normocephalic. EYES: Normal reaction of pupils, equal size. NOSE: Clear with pink turbinates. THROAT: No erythema or exudates. NECK: No masses, no JVD. CHEST: No chest wall deformity. LUNGS: Equal air entry with bilateral scattered rhonchi. CVS: S1 and S2 normal with no audible murmur, regular rhythm. ABDOMEN: No hepatosplenomegaly, normal bowel sounds, no guarding or rigidity. SPINE: No scoliosis or deformity SKIN: No rashes CENTRAL NERVOUS SYSTEM: No focal deficits, tone is normal in all 4 extremities. EXTREMITIES: Left upper extremity in a sling. There is no peripheral edema. No clubbing, no cyanosis. Peripheral pulses are intact. - Labs CBC & Chem 7: 01/19/22 06:51 01/22/22 05:59 Assessment and Plan Assessment: Weakness, with falling episodes at home, and an proximal left humeral fracture. Left upper extremity in a sling. Mild hyponatremia, improved currently at 132. Mild/moderate confusion, which may relate to narcotics, and/or mild alcohol withdrawal syndrome. Ongoing tobacco use with nicotine addiction. 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 History of hypertension. History of GERD. History of skin cancer. History of paralyzed vocal cord. Plan: The patient was seen and evaluated Currently stable and on room air Plan is for subacute rehabilitation possibly today I have personally seen and examined the patient, performed the documentation and the assessment and plan as written. Number of minutes spent on the visit: 10. I have personally seen and examined the patient and reviewed the documentation. I performed a joint evaluation with the nurse practitioner in this evaluation was done more than 20 minutes. I fully agree with the documentation above and the plan of care. Continue same treatment. Clinically stable. Outpatient bronchoscopy. Looking for discharge to subacute rehabilitation facility.
--- NOTE | 2022-01-23 14:05 | P.DS ---
Providers Date of admission: 01/16/22 21:50 Attending physician: Rigoberto Trejo MD Consults: 01/17/22 00:56 Consult Physician Stat Consulting Provider: Bright Gaviria Consult Reason/Comments: Left proximal humerus fracture, closed Do you want consulting provider notified?: Already Contacted 01/17/22 08:21 Consult Physician Routine Consulting Provider: Mann Garcia Consult Reason/Comments: Lung mass Right upper lobe Do you want consulting provider notified?: Yes 01/21/22 09:16 Consult Physician Routine Consulting Provider: Parish Bustamante Consult Reason/Comments: inpatient rehab evaluation Do you want consulting provider notified?: Yes Primary care physician: See [facility] Course: Diagnosis Enlarging right upper lobe lung mass without patient follow up Electrolyte abnormality with hyponatremia and hyperkalemia, improving Fall without syncope Acute Left humerus fracture Right leg wound with surrounding cellulitis, improving, culture negative Nicotine dependence History of GERD Hypertension History of paralyzed vocal cord History of frequent ETOH use Full Code Discharge Disposition Patient is stable for discharge to rehab today. Subacute versus inpatient rehab. Sodium level has improved up to 132, repeat level in 2 to 3 days. Follow up with primary care, also follow up with pulmonary outpatient for work up for right upper lobe mass. Patient advised for total alcohol and tobacco cessation. Verbalizes understanding. Hospital Course This is a pleasant 67 years old male with past medical history of GERD, hypertension, paralyzed vocal cord nicotine dependence, patient also reports frequent alcohol use, reports drinking budlight. He does have multiple hospital admissions for hyponatremia. Patient presents because of a fall, due to losing balance and fell on his left side and injured his left shoulder currently is complaining of from significant pain to the left shoulder and arm, his left arm is lying. There is evidence of left humeral fracture on x-ray, orthopedics was consulted for evaluation. He denies any syncope, does not have headache or dizziness currently, no weakness or numbness, no chest pain or dyspnea but he has some cough and yellow phlegm for the last 2 days. No change in urine or bowel habits. No vomiting or diarrhea or dysuria or urgency. He smokes half pack per day and he was counseled to quit and he agrees to the nicotine patch. Also patient reports injury to his right leg about one week ago and he has a small wound with Band-Aid and some mild purulent discharge with surrounding redness but no significant tenderness or swelling suspicious for cellulitis and culture has been sent. Patient has a known right upper lung mass, he told me he saw Dr. Garcia as an outpatient and he is supposed to get a lung biopsy but has patient has not followed up. Patient aware of the risk of cancer with this mass. On admission, Labs reviewed showing mild leukocytosis at 10.8, hemoglobin 12.2. INR is unremarkable. Sodium is 124, potassium high 5.5, creatinine normal 0.7. Glucose low 64, and repeated 201. Liver enzymes not significantly elevated. Bilirubin is high at 2.1. TSH is normal at 0.8. Troponin is negative at 0.019. Chest x-ray: Right upper lobe mass increasing in size. Interstitial bacilli pulmonary infiltrates and subsegmental atelectasis are increased compared to old exam Left arm x-ray showing proximal left humerus fracture with displacement. Left distal clavicle deformity suspicious for prior fractures in the emergency room patient received normal saline at 75 mL/h. Patient was monitored in ICU for hyponatremia as sodium was found to be 124, which did improved up to 132 with IV hydration with normal saline. He was then transfered to medical floor and monitored over the weekend. Also there is work up for lung mass, he did not wish to undergo chest CT while inpatient for further evaluation as he is in pain and having mobility issues from his left proximal humerus fracture. Orthopedics has evaluated patient and recommending immobilizer sling and will see the patient on discharge. Pain management with norco 7.5 q6 hour and also lidocaine patch has been added today. Dr Garcia evaluated the patient this admission and will follow up on discharge for outpatient CT and patient is agreeable to this plan. Patient was also started on lisinopril 10 mg po daily as well as amlodipine 10 mg po daily for blood p ressure control. Will complete 14 days total of oral keflex, his leg has improved has scabbed over and culture is showing normal skin jg. No peripheral edema noted. Continues to verbalize understanding of need for total alcohol and smoking cessation and he is agreeable to rehab on discharge. He would like to go for inpatient rehab, Dr Bustamante was consulted for evaluation. PT/OT to re evaluate patient and decide subacute rehab versus inpatient rehab. 01/22/2022 Patient today sitting up in chair. He is alert x 3 and overall states he is feeling better. He is agreeable to rehab today. Does report pain rating 6/10 in his left shoulder and clavicle. He is receiving norco as well as lidocaine patch. Patients lungs are clear, S1 S2 auscultated, abdomen is soft and nontender. He is tolerating diet and states his bowels are moving. Patient will need a new immobilizer sling for discharge. Complete 14 days total of oral keflex. Repeat labs in 2 to 3 days outapatient. Most recent labs showing white count 8.8, hgb 10.3, sodium 132, potassium 4.8, BUN 9.5, creatinine 0.8, glucose 92. Patient is afebrile, heart rate 63, blood pressure 144/73, 97% room air. 01/23/2022 Small dose tramadol added for additional pain management. Follow up with pulmonary as recommended. Patient is alert x 3 today, sitting up in chair. Ready for DC to rehab and has been accepted at facility today. Lungs are clear S1 S2 auscultated, abdomen is soft and nontender. Bowels are moving. Immobilizer sling in place. Hemodynamically stable. Repeat BMP in 2 to 3 days. Cleared medically for discharge. Total time taken in discharge planning greater than 35 minutes. Please see medication reconciliation for a list of current medication. Thank you for allowing us to participate in the care of this patient. The impression and plan of care has been dictated by Amarilis James, Nurse Practitioner as directed. Dr. Major MD I have performed a history and physical examination and medical decision making of this patient, discussed the same with the dictator, and agree with the dictators assessment and plan as written, documented as a scribe. Based on total visit time, I have performed more than 50% of this visit. , i Patient Condition at Discharge: Fair Plan - Discharge Summary Discharge Rx Participant: No New Discharge Prescriptions: New Docusate [Colace] 100 mg PO BID PRN cap PRN Reason: Constipation Cephalexin [Keflex] 500 mg PO TID 8 Days cap amLODIPine [Norvasc] 10 mg PO DAILY tab Lidocaine 5% Patch [Lidoderm 5% Patch] 1 patch TOPICAL DAILY #2 patch Nicotine 21Mg/24Hr Patch [Habitrol] 1 patch TRANSDERM DAILY patch HYDROcodone/APAP 7.5-325MG [[place] 7.5-325] 1 each PO Q6HR PRN #3 tab PRN Reason: MODERATE Pain Acetaminophen Tab [Tylenol] 650 mg PO Q6HR PRN tab PRN Reason: Mild Pain Or Fever > 100.5 lisinopriL [Zestril] 10 mg PO DAILY tab traMADol HCl [Ultram] 25 mg PO BID PRN #4 tab PRN Reason: Pain Continue Omeprazole Magnesium [PriLOSEC OTC] 20 mg PO DAILY PRN PRN Reason: Heartburn Famotidine [Pepcid] 20 mg PO DAILY PRN PRN Reason: Heartburn Discontinued diphenhydrAMINE [Benadryl] 25 - 50 mg PO HS PRN PRN Reason: Insomnia Acetaminophen Tab [Tylenol] 1,000 mg PO Q6H PRN PRN Reason: Fever And/ Or Pain Discharge Medication List Omeprazole Magnesium [PriLOSEC OTC] 20 mg PO DAILY PRN 06/14/21 [History] Famotidine [Pepcid] 20 mg PO DAILY PRN 10/11/21 [History] Acetaminophen Tab [Tylenol] 650 mg PO Q6HR PRN tab 01/22/22 [Rx] Cephalexin [Keflex] 500 mg PO TID 8 Days cap 01/22/22 [Rx] Docusate [Colace] 100 mg PO BID PRN cap 01/22/22 [Rx] HYDROcodone/APAP 7.5-325MG [[place] 7.5-325] 1 each PO Q6HR PRN #3 tab 01/22/22 [Rx] Lidocaine 5% Patch [Lidoderm 5% Patch] 1 patch TOPICAL DAILY #2 patch 01/22/22 [Rx] Nicotine 21Mg/24Hr Patch [Habitrol] 1 patch TRANSDERM DAILY patch 01/22/22 [Rx] amLODIPine [Norvasc] 10 mg PO DAILY tab 01/22/22 [Rx] lisinopriL [Zestril] 10 mg PO DAILY tab 01/22/22 [Rx] traMADol HCl [Ultram] 25 mg PO BID PRN #4 tab 01/23/22 [Rx] Follow up Appointment(s)/Referral(s): Ministerio Hatch MD [STAFF PHYSICIAN] - 1 Week See Plata III, MD [Primary Care Provider] - 1-2 days Mann Garcia DO [Doctor of Osteopathic Medicine] - 01/26/22 10:30 am Bright Gaviria MD [STAFF PHYSICIAN] - 01/31/22 2:15 pm Ambulatory/Diagnostic Orders: Basic Metabolic Panel [LAB.AMB] Time Frame: 3 Days, Location: None Selected Activity/Diet/Wound Care/Special Instructions: Continue with norco for pain management as well as lidocaine patch Repeat BMP in 2 to 3 days to monitor sodium level Continue with left arm in immobilizer sling -- Patient needs a new one prior to discharge Follow up with orthopedics as recommended Advised for total alcohol and tobacco cessation Continue with nicotine patch Discharge Disposition: TRANSFER TO SNF/ECF
[2022-01-23] MEDS: LIDOCAINE 5% PATCH TOPICAL SCH (15:04)
[2022-01-23 15:18] VITALS: BP 123/75; PULSE 78; TEMP 98.6
== END 2022-01-23 19:27 | DRG 563 ==
LOC: EC 20:00 → 3SCARD 21:50 → 2SICU 01-17 19:59 → 4SSUR 01-20 18:10
PROVIDERS: ADMIT Internal Medicine; ATTEND Internal Medicine
DX: S42.292A Other displaced fracture of upper end of left humerus, initial encounter for closed fracture (principal); E87.1 Hypo-osmolality and hyponatremia; L03.115 Cellulitis of right lower limb; I48.91 Unspecified atrial fibrillation; W18.30XA Fall on same level, unspecified, initial encounter; F17.210 Nicotine dependence, cigarettes, uncomplicated; F10.20 Alcohol dependence, uncomplicated; I10 Essential (primary) hypertension; J44.9 Chronic obstructive pulmonary disease, unspecified; R29.6 Repeated falls; J38.00 Paralysis of vocal cords and larynx, unspecified; K21.9 Gastro-esophageal reflux disease without esophagitis; S61.412A Laceration without foreign body of left hand, initial encounter; E87.5 Hyperkalemia; E16.2 Hypoglycemia, unspecified; R91.8 Other nonspecific abnormal finding of lung field; Z82.49 Family history of ischemic heart disease and other diseases of the circulatory system; Z85.828 Personal history of other malignant neoplasm of skin; Z85.118 Personal history of other malignant neoplasm of bronchus and lung; Y92.000 Kitchen of unspecified non-institutional (private) residence as the place of occurrence of the external cause; Z71.6 Tobacco abuse counseling; Z71.41 Alcohol abuse counseling and surveillance of alcoholic; Z79.899 Other long term (current) drug therapy
CPT/HCPCS: 36415; 71045; 80048; 80053; 81003; 82248; 83036; 83735; 84100; 84132; 84145; 84443; 84484; 85025; 85610; 85730; 87070; 87205; 90471; 90715; 93005; 94760; 96361; 96372; 96374; 96375; 99285

== ENCOUNTER 2022-02-07 11:36 | Day surgery (SDC) | payer MEDICARE ==
[~2022-02-07 11:36] MED LIST changes: -ALBUTEROL NEB (CONC) 2.5 MG/0.5 ML INHALATION ONE; +LIDOCAINE 1% (10MG/ML) FOR IV START INTRADERMA PRN; -LIDOCAINE 2% (PF) 20 MG/ML 5 ML VIAL INHALATION ONE
[2022-02-07] MEDS ORDERED: PHENYLEPHRINE-0.9% NACL SYG 1,000 MCG/10 ML SYRINGE ONE (14:32)
[2022-02-07] MEDS ORDERED: PROPOFOL 10 MG/ML 20 ML VIAL IV ONE (14:32)
[2022-02-07] MEDS ORDERED: fentaNYL (PF) 50 MCG/ML 2 ML AMP ONE (14:32)
[2022-02-07] MEDS ORDERED: SUCCINYLCHOLINE CHLORIDE 200 MG/10 ML VIAL IV ONE (14:32)
[2022-02-07] MEDS ORDERED: LIDOCAINE 2% INJ 20 MG/ML (2 ML VIAL) ONE (14:32)
[2022-02-07] MEDS ORDERED: LIDOCAINE 4% LTA KIT (4 ML) TOPICAL ONE (14:32)
--- NOTE | 2022-02-07 14:50 | CT ---
EXAMINATION TYPE: CT Chest cameron Robbins Protocol DATE OF EXAM: 02/07/2022 COMPARISON: Chest x-ray 01/16/2022 HISTORY: PRE-OP: ZAHIRA BRONCHOSCOPY CT DLP: 578 mGycm Automated exposure control for dose reduction was used. Contrast: None Technique: Axial images 5 mm thick sections. Reconstructed images in the coronal plane FINDINGS: Peripheral posterior lateral lobular mass measures 3.2 x 5.0 x 4.1 cm. Series 11 image 19. Additional smaller nodule more medial adjacent to the major fissure measuring 1.7 x 1.7 cm. Series 11 image 23. There is an additional 2.5 x 2.3 cm lobular mass within the right midlung. Uptake nodularity is at the same level slightly posterior. There appears to be some compressive atelectasis of the posterior left lung base. Portion of the thyroid visualized is unremarkable. There is a 1.0 cm lymph node anterior to the dista l trachea. The ascending thoracic aorta at the level of the main pulmonary artery is 3.8 cm the main pulmonary artery at the bifurcation is 2.7 cm. Coronary artery calcification is present. There is a hypodensity within the superior right lobe medial liver. 2.1 cm in -1 Hounsfield units lik magdalene a hepatic cyst. Couple of smaller hypodensities are within the liver may be additional cyst. Hiat al hernia appears to be present. IMPRESSION: 1. CT FOR BRONCHOSCOPY NAVIGATION. 2. MULTIPLE RIGHT SIDED LUNG MASSES SUSPICIOUS FOR PRIMARY AND/OR METASTATIC CHANGES
[2022-02-07 15:25] VITALS: TEMP 99
[2022-02-07 15:46] VITALS: RESP 16
--- NOTE | 2022-02-07 15:55 | XR ---
EXAMINATION TYPE: XR chest 1V portable DATE OF EXAM: 02/07/2022 3:35 PM COMPARISON: Same day CT TECHNIQUE: XR chest 1V portable Frontal view of the chest. CLINICAL INDICATION:Male, 67 years old with history of POST NAVIGATIONAL BRONCH; FINDINGS: Lungs/Pleura: Right upper lobe mass measuring up to 4.[address] from the same day. A more in ferior mass seen on CT is less well visualized and this exam. There is no evidence of pleural effusio n, focal consolidation, or pneumothorax. Pulmonary vascularity: Unremarkable. Heart/mediastinum: Cardiomediastinal silhouette is unremarkable. Atherosclerotic calcifications are seen in the aorta. Musculoskeletal: No acute osseous pathology. IMPRESSION: Status post right bronchoscopy with persistent masses as seen on CT same day, no evidence of pneumoth orax.
[2022-02-07 16:29] VITALS: BP 134/75; PULSE 76
--- NOTE | 2022-02-07 21:47 | OP ---
OPERATIVE REPORT PROCEDURES PERFORMED: Navigational bronchoscopy, airway examination, therapeutic lavage, bronchoalveolar lavage. PREOPERATIVE DIAGNOSIS: Mass, right upper lobe. POSTOPERATIVE DIAGNOSIS: Mass, right upper lobe. CO-SURGEON: Dr. Sierra. ANESTHESIA: General anesthesia. The patient's procedure was done in room #1 [facility]. There was informed consent and universal timeout. DESCRIPTION OF PROCEDURE: After the patient was adequately sedated and anesthetized, the bronchoscope was inserted through the bronchoscope adapter connected to the endotracheal tube. The bronchoscope was pushed through the endotracheal tube into the trachea. The trachea appeared normal. Tracheal annette was sharp. I did a thorough evaluation of the right upper lobe and its 3 segments, right middle lobe and its 3 segments, right lower lobe and its 5 segments, left upper lobe proper and its 2 segments, lingula and its 2 segments and left lower lobe and its 4 segments. All the airways were completely normal and clear. There was no mass or tumor. There was no bronchitis. Mucosa was otherwise normal. Next, with navigational guidance, we were able to position the scope properly in the right upper lobe posterior segment and do multiple transbronchial biopsies with good localization of the lesion on the navigational system. After we obtained about 6 biopsies, we did a needle biopsy in that same location. Again, we got good sampling and localization. Subsequent to that, we did brushings in the posterior segment right upper lobe and washings in the right upper lobe mostly in the posterior segment. The patient tolerated the procedure well. There was no immediate complication. He was stable throughout the procedure. The patient will be recovered and discharged [facility] to the [facility]. The patient tolerated the procedure well without complication. MMODL / IJN: [id number] / [facility]ENTERBeryl
[2022-02-08 07:03] LABS: Appearance,BF CloudyBlood Tinged
== END 2022-02-07 16:45 | disposition home or self-care (01) ==
LOC: ORWHC2ENDO 11:36
PROVIDERS: ATTEND Internal Medicine Critical Care Medicine
DX: C34.11 Malignant neoplasm of upper lobe, right bronchus or lung (principal); I10 Essential (primary) hypertension; J44.9 Chronic obstructive pulmonary disease, unspecified; R91.8 Other nonspecific abnormal finding of lung field; K21.9 Gastro-esophageal reflux disease without esophagitis; J38.00 Paralysis of vocal cords and larynx, unspecified; F17.210 Nicotine dependence, cigarettes, uncomplicated; Z98.890 Other specified postprocedural states; Z82.49 Family history of ischemic heart disease and other diseases of the circulatory system
CPT/HCPCS: 31629 ×2; 88104; 88108; 88305; 89050; 88342; 88341; 87070; 87205; 71045; 71250; 31625; 31624; 31627; J0330; J3010; J2370; J2704; J2001; 31623; 31633

== ENCOUNTER 2022-02-13 18:39 | Emergency (ER) | payer MEDICARE ==
[2022-02-13 19:02] VITALS: TEMP 98.5
--- NOTE | 2022-02-13 19:30 | ED ---
General Adult HPI - General Chief complaint: Recheck/Abnormal Lab/Rx Stated complaint: tremors Time Seen by Provider: 02/13/22 18:54 Source: EMS Mode of arrival: EMS Limitations: no limitations - History of Present Illness Initial comments: Dictation was produced using [employer] dictation software. please excuse any grammatical, word or spelling errors. Chief Complaint: 67-year-old male transferred from [facility] for evaluation of concerns of mini seizures History of Present Illness: 67-year-old male he has multiple comorbidities. Patient is recently admitted to the hospital for hyponatremia and humeral fracture. Patient was discharged to rehab facility. Patient states for the last 7 days he's been having these tremors that have been persistent. He notified rehab/[facility] staff told that he wants to come to the hospital be evaluated for many seizures. Patient also complaining of some shortness of breath. Denies any chest pain. No fevers. The ROS documented in this emergency department record has been reviewed and confirmed by me. Those systems with pertinent positive or negative responses have been documented in the HPI. All other systems are other negative and/or noncontributory. PHYSICAL EXAM: General Impression: Alert and oriented x3, not in acute distress HEENT: Normocephalic atraumatic, extra-ocular movements intact, pupils equal and reactive to light bilaterally, mucous membranes moist. Cardiovascular: Heart regular rate and rhythm Chest: Able to complete full sentences, no retractions, no tachypnea Abdomen: abdomen soft, non-tender, non-distended, no organomegaly Musculoskeletal: Pulses present and equal in all extremities, no peripheral edema Motor: no focal deficits noted Neurological: CN II-XII grossly intact, no focal motor or sensory deficits noted Skin: Intact with no visualized rashes Psych: Normal affect and mood ED course: 67-year-old male concerned that he is experiencing many seizures. Complains of shortness of breath. Patient is well-appearing at the bedside is in no acute distress. Auscultation of the lungs bilaterally are unremarkable. Does not appear to be dyspneic. Vital Signs upon arrival are within acceptable limits. Evaluation obtained. CBC unremarkable. Coag panel is negative. Patient has hyponatremia of 127. Patient has a history of hyponatremia. He is benign by nephrology in the past. 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 Patient has been prescribed NaCl tabs and given fluid restrictions. 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 Diagnostic biopsy was from 5 days ago. Patient's pathology results have not been explained to the patient yet. He is supposed to have an appointment next week. Patient's mildly hyponatremic. The EMR chart review was performed. Patient sometime last year had suspicious findings on computed tomography scan of the chest pains value by cardiothoracic surgery. According to documentation patient did not consent for any sort of treatment regarding this. He did have a PET scan that showed abnormal uptake to the chest. Cardiothoracic note states that his findings are very suspicious for lung CA. However at that time. Documentation patient refused consent for further treatment. Computed tomography scan of brain shows large area of hypoattenuation to the right hemisphere suspicious for cancer process. Patient does not have any previous CT scans the brains for comparison. 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 Given brain mass patient would benefit from transfer to higher level of care with neurosurgical capabilities. Patient be transferred to [facility]. Spoke with is willing to accept patient for ER to ER transfer. EKG interpretation: Ventricular rate is 82, sinus rhythm,. 154, care is 90, QTC 385. No RI prolongation, no QTC prolongation, no ST or T-wave changes noted. EKG compared to 01/16/2022 showing no changes. Overall, this EKG is unremarkable - Related Data Home Medications Medication Instructions Recorded Confirmed Omeprazole Magnesium [PriLOSEC OTC] 20 mg PO DAILY PRN 06/14/21 02/07/22 Famotidine [Pepcid] 20 mg PO DAILY PRN 10/11/21 02/07/22 Previous Rx's Medication Instructions Recorded Acetaminophen Tab [Tylenol] 650 mg PO Q6HR PRN tab 01/22/22 Cephalexin [Keflex] 500 mg PO TID 8 Days cap 01/22/22 Docusate [Colace] 100 mg PO BID PRN cap 01/22/22 HYDROcodone/APAP 7.5-325MG [[place] 1 each PO Q6HR PRN #3 tab 01/22/22 7.5-325] Lidocaine 5% Patch [Lidoderm 5% 1 patch TOPICAL DAILY #2 patch 01/22/22 Patch] Nicotine 21Mg/24Hr Patch [Habitrol] 1 patch TRANSDERM DAILY patch 01/22/22 amLODIPine [Norvasc] 10 mg PO DAILY tab 01/22/22 lisinopriL [Zestril] 10 mg PO DAILY tab 01/22/22 traMADol HCl [Ultram] 25 mg PO BID PRN #4 tab 01/23/22 Allergies Allergy/AdvReac Type Severity Reaction Status Date / Time No Known Allergies Allergy Verified 02/13/22 18:58 Review of Systems ROS Statement: Those systems with pertinent positive or pertinent negative responses have been documented in the HPI. ROS Other: All systems not noted in ROS Statement are negative. Past Medical History Past Medical History: Cancer, GERD/Reflux, Hypertension Additional Past Medical History / Comment(s): paralyzed vocal cord, SKIN CANCER(FACE), mass in lungs History of Any Multi-Drug Resistant Organisms: None Reported Past Surgical History: Orthopedic Surgery Additional Past Surgical History / Comment(s): triple endoscopy, LT KNEE SCOPE, LT KNEE MENISCUS SX Past Anesthesia/Blood Transfusion Reactions: No Reported Reaction Additional Past Anesthesia/Blood Transfusion Reaction / Comment(s): . Past Psychological History: No Psychological Hx Reported Smoking Status: Current every day smoker Past Alcohol Use History: None Reported Past Drug Use History: None Reported - Past Family History Father Family Medical History: Congestive Heart Failure (CHF), Myocardial Infarction ([place]) Mother Family Medical History: No Reported History Additional Family Medical History / Comment(s): MOM IS IN GOOD HEALTH AT AGE 96 General Exam Limitations: no limitations Course Vital Signs 02/13/22 18:54 Temperature 98.5 F Pulse Rate 80 Respiratory 18 Rate Blood Pressure 114/72 O2 Sat by Pulse 94 L Oximetry Medical Decision Making - Lab Data Result diagrams: 02/13/22 19:45 02/13/22 19:45 Lab Results 02/13/22 02/13/22 02/13/22 Range/Units 19:22 19:45 19:45 WBC 10.3 (3.8-10.6) k/uL RBC 4.18 L (4.30-5.90) m/uL Hgb 10.6 L (13.0-17.5) gm/dL Hct 33.8 L (39.0-53.0) % MCV 80.9 (80.0-100.0) fL MCH 25.3 (25.0-35.0) pg MCHC 31.3 (31.0-37.0) g/dL RDW 16.1 H (11.5-15.5) % Plt Count 481 H (150-450) k/uL MPV 6.7 Neutrophils % 62 % Lymphocytes % 27 % Monocytes % 6 % Eosinophils % 1 % Basophils % 1 % Neutrophils # 6.4 (1.3-7.7) k/uL Lymphocytes # 2.8 (1.0-4.8) k/uL Monocytes # 0.6 (0-1.0) k/uL Eosinophils # 0.1 (0-0.7) k/uL Basophils # 0.1 (0-0.2) k/uL Hypochromasia Slight Anisocytosis Slight PT 10.2 (9.0-12.0) sec INR 0.9 (<1.2) APTT 23.5 (22.0-30.0) sec Sodium (137-145) mmol/L Potassium (3.5-5.1) mmol/L Chloride (98-107) mmol/L Carbon Dioxide (22-30) mmol/L Anion Gap mmol/L BUN (9-20) mg/dL Creatinine (0.66-1.25) mg/dL Est GFR (CKD-EPI)AfAm (>60 ml/min/1.73 sqM) Est GFR (CKD-EPI)NonAf (>60 ml/min/1.73 sqM) Glucose (74-99) mg/dL Calcium (8.4-10.2) mg/dL Magnesium (1.6-2.3) mg/dL Total Bilirubin (0.2-1.3) mg/dL AST (17-59) U/L ALT (4-49) U/L Alkaline Phosphatase (38-126) U/L NT-Pro-B Natriuret Pep pg/mL Total Protein (6.3-8.2) g/dL Albumin (3.5-5.0) g/dL Influenza Type A (PCR) Not Detected (Not Detectd) Influenza Type B (PCR) Not Detected (Not Detectd) RSV (PCR) Not Detected (Not Detectd) SARS-CoV-2 (PCR) Not Detected (Not Detectd) 02/13/22 02/13/22 Range/Units 19:45 19:45 WBC (3.8-10.6) k/uL RBC (4.30-5.90) m/uL Hgb (13.0-17.5) gm/dL Hct (39.0-53.0) % MCV (80.0-100.0) fL MCH (25.0-35.0) pg MCHC (31.0-37.0) g/dL RDW (11.5-15.5) % Plt Count (150-450) k/uL MPV Neutrophils % % Lymphocytes % % Monocytes % % Eosinophils % % Basophils % % Neutrophils # (1.3-7.7) k/uL Lymphocytes # (1.0-4.8) k/uL Monocytes # (0-1.0) k/uL Eosinophils # (0-0.7) k/uL Basophils # (0-0.2) k/uL Hypochromasia Anisocytosis PT (9.0-12.0) sec INR (<1.2) APTT (22.0-30.0) sec Sodium 127 L (137-145) mmol/L Potassium 4.6 (3.5-5.1) mmol/L Chloride 96 L (98-107) mmol/L Carbon Dioxide 17 L (22-30) mmol/L Anion Gap 14 mmol/L BUN 19 (9-20) mg/dL Creatinine 0.80 (0.66-1.25) mg/dL Est GFR (CKD-EPI)AfAm >90 (>60 ml/min/1.73 sqM) Est GFR (CKD-EPI)NonAf >90 (>60 ml/min/1.73 sqM) Glucose 89 (74-99) mg/dL Calcium 9.5 (8.4-10.2) mg/dL Magnesium 1.8 (1.6-2.3) mg/dL Total Bilirubin 0.8 (0.2-1.3) mg/dL AST 28 (17-59) U/L ALT 18 (4-49) U/L Alkaline Phosphatase 114 (38-126) U/L NT-Pro-B Natriuret Pep 252 pg/mL Total Protein 7.2 (6.3-8.2) g/dL Albumin 3.9 (3.5-5.0) g/dL Influenza Type A (PCR) (Not Detectd) Influenza Type B (PCR) (Not Detectd) RSV (PCR) (Not Detectd) SARS-CoV-2 (PCR) (Not Detectd) Disposition Clinical Impression: Brain cancer Disposition: OTHER INSTITUTION NOT DEFINED Condition: Serious Referrals: Ministerio Hatch MD [Primary Care Provider] - 1-2 days Time of Disposition: 21:18 - Out of Hospital Transfer - Req. Specs Out of Hospital Transfer - Requested Specifics: Other Emergency Center ([facility])
[2022-02-13 19:50] LABS: Anisocytosis Slight; Basophils # (A) 0.1 k/uL (0-0.2); Basophils % (A) 1 %; Eosinophils # (A) 0.1 k/uL (0-0.7); Eosinophils % (A) 1 %; HCT 33.8 % (39.0-53.0); HGB 10.6 gm/dL (13.0-17.5); Hypochromasia Slight; Lymphocytes # (A) 2.8 k/uL (1.0-4.8); Lymphocytes % (A) 27 %; MCH 25.3 pg (25.0-35.0); MCHC 31.3 g/dL (31.0-37.0); MCV 80.9 fL (80.0-100.0); Mean Platelet Volume 6.7; Monocytes # (A) 0.6 k/uL (0-1.0); Monocytes % (A) 6 %; Neutrophils # (A) 6.4 k/uL (1.3-7.7); Neutrophils % (A) 62 %; Platelet Count 481 k/uL (150-450); RBC 4.18 m/uL (4.30-5.90); RDW 16.1 % (11.5-15.5); WBC 10.3 k/uL (3.8-10.6)
[2022-02-13 19:58] LABS: INR 0.9 (<1.2); Partial Thromboplastin Time 23.5 sec (22.0-30.0); Prothrombin Time 10.2 sec (9.0-12.0)
[2022-02-13 20:02] LABS: ALT 18 U/L (4-49); AST 28 U/L (17-59); African American GFR (CKD) >90 (>60 ml/min/1.73 sqM); Albumin 3.9 g/dL (3.5-5.0); Alkaline Phosphatase 114 U/L (38-126); Anion Gap 14 mmol/L; Blood Urea Nitrogen 19 mg/dL (9-20); Calcium 9.5 mg/dL (8.4-10.2); Carbon Dioxide 17 mmol/L (22-30); Chloride 96 mmol/L (98-107); Glucose 89 mg/dL (74-99); Magnesium 1.8 mg/dL (1.6-2.3); Non-African American GFR(CKD) >90 (>60 ml/min/1.73 sqM); Potassium 4.6 mmol/L (3.5-5.1); Sodium 127 mmol/L (137-145); Total Bilirubin 0.8 mg/dL (0.2-1.3); Total Protein 7.2 g/dL (6.3-8.2)
--- NOTE | 2022-02-13 20:23 | XR ---
EXAMINATION TYPE: XR chest 1V portable DATE OF EXAM: 02/13/2022 8:03 PM COMPARISON: Chest radiographs from 02/07/2022. TECHNIQUE: XR chest 1V portable Portable AP radiograph of the chest. CLINICAL INDICATION:Male, 67 years old with history of seizure; FINDINGS: Lungs/Pleura: Similar right midlung masses. There is no evidence of pleural effusion, focal consolida tion, or pneumothorax. Pulmonary vascularity: Mild pulmonary vascular congestion. Heart/mediastinum: Cardiomediastinal silhouette is enlarged and stable. Musculoskeletal: No acute osseous pathology. IMPRESSION: Haziness the lungs could represent low lung lines versus pulmonary edema.
[2022-02-13] MEDS ORDERED: SODIUM CHLORIDE 0.9% 1,000 ML IV STA (20:34)
[2022-02-13] MEDS ORDERED: NALOXONE 0.4 MG/ML 1 ML VIAL IV PRN (20:37)
[2022-02-13] MEDS ORDERED: SODIUM CHLORIDE 0.9% 1,000 ML IV SCH (20:45)
--- NOTE | 2022-02-13 21:29 | CT ---
EXAMINATION TYPE: CT brain wo con CT DLP: 1184.4 mGycm, Automated exposure control for dose reduction was used. DATE OF EXAM: 02/13/2022 8:59 PM COMPARISON: CT brain 10/20/2021. CLINICAL INDICATION:Male, 67 years old with history of seizure, TECHNIQUE: Brain: Axial CT images of the brain were obtained with coronal and sagittal reformats created and rev iewed. Contrast used: None. Oral contrast used: None. FINDINGS: Brain: Extra-axial spaces: No abnormal extra-axial fluid collections. Ventricular system: There is effacement of the right lateral ventricle most pronounced posteriorly fr om the vasogenic edema described below. Cerebral parenchyma: New vasogenic edema within the right cerebral hemisphere involving the posterior right frontal lobe , right parietal lobe, right temporal lobe. There is an area of increased density which could represent a intra-axial mass. This area measures 15 x 11 x 14 mm. No acute intraparenchy mal hemorrhage. The oneal-white junction is well differentiated. Cerebellum: Unremarkable. Mass effect: No evidence of midline shift. Intracranial vasculature: Atherosclerotic calcifications of the intracranial vessels. Soft tissues: Normal. Calvarium/osseous structures: No depressed skull fracture. Paranasal sinuses and mastoid air cells: Mild scattered paranasal sinus disease. Visualized orbits: Orbital contents are intact. IMPRESSION: 1. Suspected intracranial intra-axial mass involving the right posterior frontal lobe with surroundi ng vasogenic edema. Findings are new from 10/20/2021. Given patient's history of cancer this may repre sent metastatic focus. Further evaluation with MRI of the brain with IV contrast is recommended. 2. Effacement of the right lateral ventricle secondary to vasogenic edema.
[2022-02-13 22:51] VITALS: BP 188/56; PULSE 77; RESP 15
== END 2022-02-13 23:16 | disposition other institution (70) ==
LOC: EC 18:39 → 5NMEDONC 20:51 → UNDOADMIN 20:51 → 5NMEDONC 20:57 → EC 23:16
DX: C79.31 Secondary malignant neoplasm of brain (principal); E87.1 Hypo-osmolality and hyponatremia; D23.30 Other benign neoplasm of skin of unspecified part of face; I10 Essential (primary) hypertension; K21.9 Gastro-esophageal reflux disease without esophagitis; F17.200 Nicotine dependence, unspecified, uncomplicated; Z20.822 Contact with and (suspected) exposure to COVID-19; Z79.899 Other long term (current) drug therapy
CPT/HCPCS: 36415; 70450; 71045; 80053; 83735; 83880; 85025; 85610; 85730; 87636; 93005; 99285

== ENCOUNTER 2022-03-06 14:01 | Inpatient (IN) | payer MEDICARE ==
[2022-03-06] MEDS ORDERED: LORazepam 2 MG/ML INJ IV STA ×2 (14:20→14:46)
--- NOTE | 2022-03-06 14:30 | ED ---
General Adult HPI - General Stated complaint: YUDI Time Seen by Provider: 03/06/22 14:05 Source: patient, RN notes reviewed, old records reviewed - History of Present Illness Initial comments: This is a 67-year-old male who presents emergency Department stating slightly altered and short of breath. Patient has a history of lung cancer with metastatic disease to the brain. [facility] humerus look that when he just started having a hard time breathing and asking for help EMS got there and the patient was very anxious did not want to keep a mask on but continues there is having a difficult time breathing patient did also complain of a mild headache. Patient denies any recent fever chills. Patient denies any chest pain or palpitations patient denies abdominal pain patient denies nausea vomiting diarrhea - Related Data Home Medications Medication Instructions Recorded Confirmed Omeprazole Magnesium [PriLOSEC OTC] 20 mg PO DAILY PRN 06/14/21 02/13/22 Famotidine [Pepcid] 20 mg PO DAILY PRN 10/11/21 02/13/22 HYDROcodone/APAP 7.5-325MG [[place] 1 tab PO Q6HR PRN 02/13/22 02/13/22 7.5-325] Lidocaine 5% Patch [Lidoderm 5% 1 patch TOPICAL DAILY PRN 02/13/22 02/13/22 Patch] amLODIPine [Norvasc] 10 mg PO DAILY@0900 02/13/22 02/13/22 Previous Rx's Medication Instructions Recorded Acetaminophen Tab [Tylenol] 650 mg PO Q6HR PRN tab 01/22/22 Docusate [Colace] 100 mg PO BID PRN cap 01/22/22 Nicotine 21Mg/24Hr Patch [Habitrol] 1 patch TRANSDERM DAILY patch 01/22/22 lisinopriL [Zestril] 10 mg PO DAILY tab 01/22/22 traMADol HCl [Ultram] 25 mg PO BID PRN #4 tab 01/23/22 Allergies Allergy/AdvReac Type Severity Reaction Status Date / Time No Known Allergies Allergy Verified 02/13/22 21:40 Review of Systems ROS Statement: Those systems with pertinent positive or pertinent negative responses have been documented in the HPI. ROS Other: All systems not noted in ROS Statement are negative. Past Medical History Past Medical History: Cancer, GERD/Reflux, Hypertension Additional Past Medical History / Comment(s): paralyzed vocal cord, SKIN CANCER(FACE), mass in lungs History of Any Multi-Drug Resistant Organisms: None Reported Past Surgical History: Orthopedic Surgery Additional Past Surgical History / Comment(s): triple endoscopy, LT KNEE SCOPE, LT KNEE MENISCUS SX Past Anesthesia/Blood Transfusion Reactions: No Reported Reaction Additional Past Anesthesia/Blood Transfusion Reaction / Comment(s): . Past Psychological History: No Psychological Hx Reported Smoking Status: Current every day smoker Past Alcohol Use History: None Reported Past Drug Use History: None Reported - Past Family History Father Family Medical History: Congestive Heart Failure (CHF), Myocardial Infarction ([place]) Mother Family Medical History: No Reported History Additional Family Medical History / Comment(s): MOM IS IN GOOD HEALTH AT AGE 96 General Exam - General Exam Comments Initial Comments: GENERAL: Patient is well-developed and well-nourished. Patient is nontoxic and well- hydrated and is in moderate distress. ENT: Neck is soft and supple. No significant lymphadenopathy is noted. Oropharynx is clear. Moist mucous membranes. Neck has full range of motion without eliciting any pain. EYES: The sclera were anicteric and conjunctiva were pink and moist. Extraocular movements were intact and pupils were equal round and reactive to light. Eyelids were unremarkable. PULMONARY: Unlabored respirations. Good breath sounds bilaterally. No audible rales rhonchi or wheezing was noted. CARDIOVASCULAR: There is a regular rate and rhythm without any murmurs gallops or rubs. ABDOMEN: Soft and nontender with normal bowel sounds. SKIN: Skin is clear with no lesions or rashes and otherwise unremarkable. NEUROLOGIC: Patient is alert and oriented x3. Though he is oriented 3 he doesn't seem to be able to understand he needs to keep the mask on the pulse off almost immediately. Cranial nerves II through XII are grossly intact. Motor and sensory are also intact. Normal speech, volume and content. Symmetrical smile. MUSCULOSKELETAL: Normal extremities with adequate strength and full range of motion. No lower extremity swelling or edema. No calf tenderness. LYMPHATICS: No significant lymphadenopathy is noted PSYCHIATRIC: Normal psychiatric evaluation. Course Vital Signs 03/06/22 03/06/22 03/06/22 14:33 16:55 17:28 Temperature 97.9 F Pulse Rate 85 96 84 Respiratory 24 28 H 32 H Rate Blood Pressure 108/67 76/51 90/66 O2 Sat by Pulse 98 97 Oximetry 03/06/22 03/06/22 17:55 18:09 Temperature 97.7 F 97.8 F Pulse Rate 116 H 112 H Respiratory 23 33 H Rate Blood Pressure 130/60 120/86 O2 Sat by Pulse 98 Oximetry Procedures - Sepsis Sepsis Focused Exam #1 Time Sepsis Criteria Met: 16:30 Sepsis Focused Exam Date: 03/06/22 Sepsis Focused Exam Time: 18:38 Sepsis Focused Exam Complete: Yes Vital Signs & RN Notes Reviewed: Yes Capillary Refill: < 2 Seconds: Fingers Peripheral Pulses: Normal: Radial (R) Skin Color: Pallor (Patient however is anemic at 6.3) Respiratory Exam: rales (Minimal Rales) Cardiovascular Exam: tachycardia (Tachycardic at 104 beats a minute) Medical Decision Making - Medical Decision Making EKG shows sinus tachycardia at 104 bpm TN interval 237 QRS 90 QT interval 310 QTC is 370. Patient's EKG shows ST depression in leads V4 V5 and V6. No obvious ST segment elevations noted however is a poor quality EKG Patient was diagnosed with pneumonia at approximately 4:30 PM I started anti biotics at the time and I gave the patient 2 L of fluid was at this point time there is a possibility that he is septic. Even though the patient's symptoms came on quickly according to the I have no other expiration for the high lactic acid so I going to assume the patient is septic and treat the patient accordingly. [facility] the patient remaining orders I consulted oncology as well as pulmonary CT of the brain shows no acute abnormality. Any changes were thought to be secondary to the surgery. CT of the chest shows no pulmonary embolism but there is some change in tumor size on the right and there is a pleural effusion with possible infiltrate on the left. I spoke with Dr. Chatman he agreed to see the patient and the ICU. - Lab Data Result diagrams: 03/06/22 14:23 03/06/22 14:23 Lab Results 03/06/22 03/06/22 03/06/22 Range/Units 14:23 14:23 14:23 WBC 12.9 H (3.8-10.6) k/uL RBC 2.76 L (4.30-5.90) m/uL Hgb 6.3 L* D (13.0-17.5) gm/dL Hct 23.5 L (39.0-53.0) % MCV 85.3 (80.0-100.0) fL MCH 22.7 L (25.0-35.0) pg MCHC 26.6 L (31.0-37.0) g/dL RDW 16.5 H (11.5-15.5) % Plt Count 427 (150-450) k/uL MPV 9.1 Neutrophils % (Manual) 77 % Band Neuts % (Manual) 2 % Lymphocytes % (Manual) 19 % Monocytes % (Manual) 3 % Neutrophils # (Manual) 10.10 H (1.3-7.7) k/uL Lymphocytes # (Manual) 2.45 (1.0-4.8) k/uL Monocytes # (Manual) 0.39 (0-1.0) k/uL Nucleated RBCs 3 H (0-0) /100 WBC Manual Slide Review Performed Large Platelets Present Polychromasia Present Hypochromasia Marked Poikilocytosis Slight Anisocytosis Slight Target Cells Present PT 10.2 (9.0-12.0) sec INR 0.9 (<1.2) APTT 21.5 L (22.0-30.0) sec D-Dimer 3.03 H (<0.60) mg/L FEU Sample Site ABG pH (7.35-7.45) ABG pCO2 (35-45) mmHg ABG pO2 (83-108) mmHg ABG HCO3 (21-25) mmol/L ABG Total CO2 (19-24) mmol/L ABG O2 Saturation (94-97) % ABG Base Excess mmol/L Lc Test FiO2 % Sodium 138 (137-145) mmol/L Potassium 4.9 (3.5-5.1) mmol/L Chloride 108 H (98-107) mmol/L Carbon Dioxide 10 L (22-30) mmol/L Anion Gap 20 mmol/L BUN 26 H (9-20) mg/dL Creatinine 1.12 (0.66-1.25) mg/dL Est GFR (CKD-EPI)AfAm 78 (>60 ml/min/1.73 sqM) Est GFR (CKD-EPI)NonAf 68 (>60 ml/min/1.73 sqM) Glucose 236 H (74-99) mg/dL Lactic Ac Sepsis Rflx Plasma Lactic Acid Ivan (0.7-2.0) mmol/L Calcium 8.9 (8.4-10.2) mg/dL Magnesium 1.9 (1.6-2.3) mg/dL Total Bilirubin 1.0 (0.2-1.3) mg/dL AST 29 (17-59) U/L ALT 46 (4-49) U/L Alkaline Phosphatase 95 (38-126) U/L Troponin I (0.000-0.034) ng/mL NT-Pro-B Natriuret Pep pg/mL Total Protein 6.0 L (6.3-8.2) g/dL Albumin 3.2 L (3.5-5.0) g/dL Blood Type Blood Type Recheck Bld Type Recheck Status Antibody Screen Crossmatch Spec Expiration Date 03/06/22 03/06/22 03/06/22 Range/Units 14:23 14:23 14:23 WBC (3.8-10.6) k/uL RBC (4.30-5.90) m/uL Hgb (13.0-17.5) gm/dL Hct (39.0-53.0) % MCV (80.0-100.0) fL MCH (25.0-35.0) pg MCHC (31.0-37.0) g/dL RDW (11.5-15.5) % Plt Count (150-450) k/uL MPV Neutrophils % (Manual) % Band Neuts % (Manual) % Lymphocytes % (Manual) % Monocytes % (Manual) % Neutrophils # (Manual) (1.3-7.7) k/uL Lymphocytes # (Manual) (1.0-4.8) k/uL Monocytes # (Manual) (0-1.0) k/uL Nucleated RBCs (0-0) /100 WBC Manual Slide Review Large Platelets Polychromasia Hypochromasia Poikilocytosis Anisocytosis Target Cells PT (9.0-12.0) sec INR (<1.2) APTT (22.0-30.0) sec D-Dimer (<0.60) mg/L FEU Sample Site ABG pH (7.35-7.45) ABG pCO2 (35-45) mmHg ABG pO2 (83-108) mmHg ABG HCO3 (21-25) mmol/L ABG Total CO2 (19-24) mmol/L ABG O2 Saturation (94-97) % ABG Base Excess mmol/L Lc Test FiO2 % Sodium (137-145) mmol/L Potassium (3.5-5.1) mmol/L Chloride (98-107) mmol/L Carbon Dioxide (22-30) mmol/L Anion Gap mmol/L BUN (9-20) mg/dL Creatinine (0.66-1.25) mg/dL Est GFR (CKD-EPI)AfAm (>60 ml/min/1.73 sqM) Est GFR (CKD-EPI)NonAf (>60 ml/min/1.73 sqM) Glucose (74-99) mg/dL Lactic Ac Sepsis Rflx Plasma Lactic Acid Ivan 13.6 H* (0.7-2.0) mmol/L Calcium (8.4-10.2) mg/dL Magnesium (1.6-2.3) mg/dL Total Bilirubin (0.2-1.3) mg/dL AST (17-59) U/L ALT (4-49) U/L Alkaline Phosphatase (38-126) U/L Troponin I 0.038 H* (0.000-0.034) ng/mL NT-Pro-B Natriuret Pep 811 pg/mL Total Protein (6.3-8.2) g/dL Albumin (3.5-5.0) g/dL Blood Type Blood Type Recheck Bld Type Recheck Status Antibody Screen Crossmatch Spec Expiration Date 03/06/22 03/06/22 03/06/22 Range/Units 14:53 15:53 16:05 WBC (3.8-10.6) k/uL RBC (4.30-5.90) m/uL Hgb (13.0-17.5) gm/dL Hct (39.0-53.0) % MCV (80.0-100.0) fL MCH (25.0-35.0) pg MCHC (31.0-37.0) g/dL RDW (11.5-15.5) % Plt Count (150-450) k/uL MPV Neutrophils % (Manual) % Band Neuts % (Manual) % Lymphocytes % (Manual) % Monocytes % (Manual) % Neutrophils # (Manual) (1.3-7.7) k/uL Lymphocytes # (Manual) (1.0-4.8) k/uL Monocytes # (Manual) (0-1.0) k/uL Nucleated RBCs (0-0) /100 WBC Manual Slide Review Large Platelets Polychromasia Hypochromasia Poikilocytosis Anisocytosis Target Cells PT (9.0-12.0) sec INR (<1.2) APTT (22.0-30.0) sec D-Dimer (<0.60) mg/L FEU Sample Site R Brachial ABG pH 7.45 (7.35-7.45) ABG pCO2 20 L (35-45) mmHg ABG pO2 203 H (83-108) mmHg ABG HCO3 14 L (21-25) mmol/L ABG Total CO2 14 L (19-24) mmol/L ABG O2 Saturation 100.0 H (94-97) % ABG Base Excess -10.5 mmol/L Lc Test Yes FiO2 80 % Sodium (137-145) mmol/L Potassium (3.5-5.1) mmol/L Chloride (98-107) mmol/L Carbon Dioxide (22-30) mmol/L Anion Gap mmol/L BUN (9-20) mg/dL Creatinine (0.66-1.25) mg/dL Est GFR (CKD-EPI)AfAm (>60 ml/min/1.73 sqM) Est GFR (CKD-EPI)NonAf (>60 ml/min/1.73 sqM) Glucose (74-99) mg/dL Lactic Ac Sepsis Rflx Y Plasma Lactic Acid Ivan (0.7-2.0) mmol/L Calcium (8.4-10.2) mg/dL Magnesium (1.6-2.3) mg/dL Total Bilirubin (0.2-1.3) mg/dL AST (17-59) U/L ALT (4-49) U/L Alkaline Phosphatase (38-126) U/L Troponin I (0.000-0.034) ng/mL NT-Pro-B Natriuret Pep pg/mL Total Protein (6.3-8.2) g/dL Albumin (3.5-5.0) g/dL Blood Type O Negative Blood Type Recheck O Neg Bld Type Recheck Status No Antibody Screen NEGATIVE Crossmatch See Detail Spec Expiration Date 03/09/20222352 Critical Care Time Critical Care Time: Yes Total Critical Care Time: 35 Disposition Clinical Impression: Dyspnea, Lactic acidosis, Pneumonia, Sepsis, Elevated troponin, Anemia Disposition: ADMITTED IP TO THIS HOSP Time of Disposition: 16:50
[2022-03-06 14:44] LABS: Albumin 3.2 g/dL (3.5-5.0); Calcium 8.9 mg/dL (8.4-10.2); Magnesium 1.9 mg/dL (1.6-2.3); Potassium 4.9 mmol/L (3.5-5.1)
[2022-03-06 14:47] LABS: Anisocytosis Slight; HCT 23.5 % (39.0-53.0); Hypochromasia Marked; MCH 22.7 pg (25.0-35.0); MCHC 26.6 g/dL (31.0-37.0); MCV 85.3 fL (80.0-100.0); Mean Platelet Volume 9.1; Platelet Count 427 k/uL (150-450); Poikilocytosis Slight; RBC 2.76 m/uL (4.30-5.90); RDW 16.5 % (11.5-15.5)
[2022-03-06 14:58] LABS: HGB 6.3 gm/dL (13.0-17.5)
[2022-03-06 15:04] LABS: INR 0.9 (<1.2); Prothrombin Time 10.2 sec (9.0-12.0)
[2022-03-06 15:10] LABS: Partial Thromboplastin Time 21.5 sec (22.0-30.0)
[2022-03-06 15:35] LABS: Band Neutrophils % 2 %; Large Platelets Present; Lymphocytes # (M) 2.45 k/uL (1.0-4.8); Monocytes # (M) 0.39 k/uL (0-1.0); Neutrophils % (M) 77 %; Nucleated Red Blood Cells 3 /100 WBC (0-0); Polychromasia Present; Target Cells Present; Total Cells Counted 200; WBC 12.9 k/uL (3.8-10.6)
[2022-03-06 16:14] LABS: ABG Base Excess -10.5 mmol/L; ABG HCO3 14 mmol/L (21-25); ABG PCO2 20 mmHg (35-45); ABG PH 7.45 (7.35-7.45); ABG PO2 203 mmHg (83-108); ABG TCO2 14 mmol/L (19-24); Allen Test Performed? Yes
--- NOTE | 2022-03-06 16:21 | CT ---
EXAMINATION TYPE: CT chest angio for PE DATE OF EXAM: 03/06/2022 COMPARISON: Radiograph 02/13/[address] 10/12/2021 HISTORY: 67 year-old male shortness of breath, Difficulty breathing. . hx lung mass. TECHNIQUE: Contiguous axial scanning of the chest performed with IV Contrast, patient injected with 6 2 mL of Isovue 370. Coronal/sagittal MIP reconstructions performed. CT DLP: 325.7 mGycm Automated exposure control for dose reduction was used. FINDINGS: There is an oblique, subacute, ununited fracture of the surgical neck region of the proximal left hum erus. Seen on the radiograph of 01/16/2022. Heart normal size without pericardial effusion. No flattening of the interventricular septum or reflu x of contrast into the hepatic veins. RCA coronary calcifications. Borderline ectasia ascending aorta 3.5 cm. Mild atherosclerotic arch calcifications. Moderate focal stenosis proximal left subclavian artery. Very diminutive bilateral vertebral arteries . Satisfactory opacification of the pulmonary arterial system. There is breathing motion artifact espec ially involving the lower lungs. No definite pulmonary embolus. Background moderate centrilobular emphysema. There is combination of airspace disease and volume loss affecting the entire left lower lobe. Lobulated mass posterior right upper lobe measuring 4.7 x 3.7 x 2.8 cm. (Versus 3.8 x 3.3 cm, previou sly). Just medial and adjacent within the posterior right upper lobe abutting the major fissure, there is a 1.2 cm spiculated lesion. (Versus 2.1 x 1.3 cm, previously). A third spiculated lesion along the minor fissure measures 2.4 x 1.2 cm. Versus 2.3 x 1.8 cm, previou sly. No pleural effusion. No thoracic lymphadenopathy by CT size criteria. Small hiatal hernia. Circumferential wall thickening distal half of the esophagus. Nonspecific 1.1 cm nodularity right adrenal gland is unchanged. Nonspecific 1.8 cm hypodense cyst rig ht hepatic dome is unchanged. Bones: No osseous destructive process. Breathing motion artifact limiting the sternum. IMPRESSION: 1. BREATHING MOTION ARTIFACT LIMITING EVALUATION. NO DEFINITE PULMONARY EMBOLUS. 2. NEW VOLUME LOSS AND CONSOLIDATION INVOLVING THE ENTIRE LEFT LOWER LOBE. CORRELATE FOR PNEUMONIA AN D/OR ENDOBRONCHIAL MUCOID IMPACTION. 3. ENLARGING DOMINANT MASS POSTERIOR RIGHT UPPER LOBE CURRENTLY 4.7 CM VERSUS 3.8 CM, PREVIOUSLY. 4. AN ADJACENT POSTERIOR RIGHT UPPER LOBE MASS IS SLIGHTLY SMALLER AT 1.2 CM (VERSUS 2.1 CM, PREVIOUS LY). 5. A THIRD SPICULATED LESION ALONG THE MINOR FISSURE IS RELATIVELY SIMILAR AT 2.4 CM. 6. SMALL HIATAL HERNIA. SOME CIRCUMFERENTIAL WALL THICKENING OF THE DISTAL HALF OF THE ESOPHAGUS COUL D REFLECT ESOPHAGITIS. CORRELATE WITH PATIENT'S SYMPTOMS.
--- NOTE | 2022-03-06 16:27 | CT ---
EXAMINATION TYPE: CT brain wo con DATE OF EXAM: 03/06/2022 COMPARISON: 02/13/2022 HISTORY: 67-year-old male with slight AMS. History of cancer and lung mass. TECHNIQUE: Examination was done in axial plane without intravenous contrast. Coronal and sagittal r econstructions performed. CT DLP: 1249.4 mGycm Automated exposure control for dose reduction was used. FINDINGS: There is no evidence of acute intracranial hemorrhage, acute ischemic changes, mass, mass-effect, or extra-axial fluid collection. There is no effacement of cerebral sulci or basal subarachnoid cister ns. There is no hydrocephalus. There is no midline shift. Kaur-white matter distinction is preserv ed. Interval right parietal craniotomy. A sliver of low-density extra-axial fluid underlying the cranioto my defect measuring 5 mm thick is noted. A vague rounded area of hypodensity measuring 1.4 cm within the right parietal lobe at the site of pr evious 2.0 cm lesion. A mid right paramedian lesion measuring 1.3 cm just above the level of the lateral ventricle is redem onstrated. This results in mild mass effect onto the roof of the body of the right lateral ventricle No evidence for acute intracranial hemorrhage, midline shift, herniation. Rightward nasal septal deviation. Visualized paranasal sinuses and mastoid air cells well pneumatized . Residual white matter hypodensity extends throughout the right frontal and parietal lobes. IMPRESSION: 1. Interval right parietal craniotomy flap. CSF density sliver of extra-axial fluid underlying the cr aniotomy flap measuring 5 mm thick. 2. A 1.4 cm area of focal hypodensity within the right parietal lobe at the site of previous 2.0 cm p arenchymal lesion. Possible posttreatment change. 3. Similar 1.3 cm mid right paramedian parenchymal lesion continues to have some mass effect at the r dong of the right lateral ventricle. No midline shift or herniation. No acute intracranial hemorrhage. 4. Prominent white matter hypodensity continues throughout the right frontal and parietal lobes.
[2022-03-06] MEDS ORDERED: CEFEPIME 2 GM in SODIUM CHLORIDE 0.9% 100 ML IVPB STA (16:45)
[2022-03-06] MEDS ORDERED: SODIUM CHLORIDE 0.9% 2,000 ML IV ONE (16:46)
[2022-03-06] MEDS ORDERED: NALOXONE 0.4 MG/ML 1 ML VIAL IV PRN (17:00)
[2022-03-06] MEDS ORDERED: VANCOMYCIN IV PER PHARMACY 1 EACH MISC MISCELLANE PRN (17:07)
[2022-03-06] MEDS ORDERED: VANCOMYCIN 1,250 MG in SODIUM CHLORIDE 0.9% 250 ML IVPB ONE (18:00)
--- NOTE | 2022-03-06 18:27 | XR ---
EXAMINATION TYPE: XR chest 1V portable DATE OF EXAM: 03/06/2022 COMPARISON: 02/13/2022 HISTORY: Short of breath TECHNIQUE: Single view FINDINGS: There is a 5 cm masslike density right upper lobe. The other lung regalado are clear. Heart s ize is fairly normal. No heart failure. Thoracic aorta is atheromatous. No pleural effusion. IMPRESSION: Large right upper lobe mass without change. No heart failure.
[2022-03-06 19:05] LABS: Glucose,Whole Blood 110 mg/dL (70-110)
[2022-03-06] MEDS: DEXMEDETOMIDINE/0.9% NACL(PMX) 400 MCG in EMPTY BAG 1 BAG IV SCH (20:07)
--- NOTE | 2022-03-06 21:27 | XR ---
EXAMINATION TYPE: XR chest 1V portable DATE OF EXAM: 03/06/2022 COMPARISON: 03/06/2022 HISTORY: Short of breath TECHNIQUE: Single view FINDINGS: Heart is normal. No heart failure. There is a 4 cm rounded masslike density over the right upper lobe margins are sharp. This appears bilobed. There are chest leads. No pleural effusion. There are no hilar masses. IMPRESSION: Right upper lobe mass not changed compared to exam earlier today. No heart failure.
[2022-03-06 21:33] LABS: Appearance,Urine Cloudy (Clear); Bacteria,Urine Many /hpf; Bilirubin,Urine Negative (Negative); Blood,Urine Trace (Negative); Color,Urine Light Yellow; Glucose,Urine (UA) Negative (Negative); Ketones,Urine Negative (Negative); Leukocyte Esterase,Urine Large (Negative); Mucus,Urine Rare /hpf; Nitrite,Urine Negative (Negative); Protein,Urine Trace (Negative); RBC,Urine 9 /hpf (0-5); Specific Gravity,Urine 1.019 (1.001-1.035); Urobilinogen,Urine <2.0 mg/dL (<2.0); WBC,Urine >182 /hpf (0-5)
[2022-03-06] MEDS: SODIUM CHLORIDE 0.9% 1,000 ML IV SCH (22:20)
[2022-03-06 23:42] LABS: Glucose,Whole Blood 70 mg/dL (70-110)
[2022-03-06] MEDS: CEFEPIME 2 GM in SODIUM CHLORIDE 0.9% 100 ML IVPB SCH (23:53)
[2022-03-07] MEDS ORDERED: ACETAMINOPHEN IV (For NPO) 1,000 MG in EMPTY BAG 1 BAG IVPB ONE (01:17)
[2022-03-07 02:25] LABS: Glucose,Whole Blood 79 mg/dL (70-110)
[2022-03-07] MEDS ORDERED: SODIUM CHLORIDE 0.9% 1,000 ML IV ONE (02:28)
[2022-03-07 03:00] LABS: Potassium 4.1 mmol/L (3.5-5.1)
[2022-03-07 03:43] LABS: HCT 20.2 % (39.0-53.0); Hypochromasia Marked; MCH 24.8 pg (25.0-35.0); MCHC 30.7 g/dL (31.0-37.0); MCV 80.7 fL (80.0-100.0); Mean Platelet Volume 8.6; Platelet Count 240 k/uL (150-450); Poikilocytosis Moderate; RBC 2.51 m/uL (4.30-5.90); RDW 15.6 % (11.5-15.5)
[2022-03-07] MEDS: NOREPINEPHRINE 4 MG in SODIUM CHLORIDE 0.9% 250 ML IV SCH (03:59)
[2022-03-07] MEDS ORDERED: TERBUTALINE FOR EXTRAVASATION 1 MG/ML VIAL SQ STA ×2 (04:10→04:39)
[2022-03-07 04:53] LABS: HGB 6.2 gm/dL (13.0-17.5)
[2022-03-07] MEDS: HALOPERIDOL LACTATE 5 MG/ML 1 ML VIAL IVP PRN (05:19)
[2022-03-07 05:34] LABS: Glucose,Whole Blood 71 mg/dL (70-110)
[2022-03-07] MEDS: VANCOMYCIN 1,250 MG in SODIUM CHLORIDE 0.9% 250 ML IVPB SCH ×2 (05:39→17:31)
[2022-03-07] MEDS ORDERED: MORPHINE SULFATE 2 MG/ML SYRINGE IVP STA (06:16)
[2022-03-07] MEDS ORDERED: LORazepam 2 MG/ML INJ IV STA (06:16)
[2022-03-07] MEDS ORDERED: LORazepam 1 MG/0.5 ML VIAL IV STA (06:42)
[2022-03-07 07:02] LABS: Band Neutrophils % 34 %; Metamyelocytes # (M) 0.03 k/uL (0); Metamyelocytes % 1 %; Monocytes # (M) 0.03 k/uL (0-1.0); Neutrophils % (M) 37 %; Nucleated Red Blood Cells 5 /100 WBC (0-0); Total Cells Counted 200; WBC 3.2 k/uL (3.8-10.6)
[2022-03-07 07:04] LABS: Polychromasia Present
[2022-03-07 07:05] LABS: Anisocytosis (M) Present
[2022-03-07 07:06] LABS: Large Platelets Present
[2022-03-07 07:07] LABS: RBC Fragments Present
--- NOTE | 2022-03-07 07:42 | XR ---
EXAMINATION TYPE: XR chest 1V DATE OF EXAM: 03/07/2022 COMPARISON: 03/06/2022 HISTORY: 67-year-old female follow-up pneumonia TECHNIQUE: Single frontal view of the chest is obtained. FINDINGS: Heart normal size. Hyperinflation. Patchy retrocardiac and left basilar opacity persists slightly mor e defined now. 4.3 cm right midlung mass is similar. No sizable pleural effusion. Old traumatic defor mity of the distal left clavicle. Subacute oblique surgical neck fracture proximal left humerus. IMPRESSION: 1. COPD with known 4.3 cm right midlung mass. Known left lower lobe airspace disease. 2. Known subacute oblique fracture surgical neck left proximal humerus.
--- NOTE | 2022-03-07 08:18 | P.CNPUL ---
History of Present Illness Consult date: 03/06/22 Reason for consult: dyspnea History of present illness: 67-year-old male patient with metastatic adenocarcinoma of the lung, recent diagnosis was made by bronchoscopy and biopsy of a right lung mass. 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 The patient has undergone previous craniotomy. The exact timing and the details of the craniotomy is not known. The patient came into the emergency department with worsening shortness of breath and increased anxiety. He stated that he was unable to breathe. He was having increased tachypnea and the patient was also hypoxic. Immediately, the patient was placed initially on 100% nonrebreather facemask of alignment of the patient was transitioned to a BiPAP mask. CAT scan of the brain was done and it showed a craniotomy flap over the right parietal area. The same time, there was some postsurgical changes and a 1.4 cm lesion along the right parietal lobe site that was previously 2.0 cm in size. There was another 1.3 cm right paramedian lesion causing some mass effect on the lateral ventricle on the right. Also, CAT scan of the chest was not any children of this of any pulmonary embolism. There was extensive consolidation of the left lower lobe. There was also a large right lung mass measuring approximately 4.7 x 3.7 cm inside that had grown in addition to other satellite lesions in the right upper lobe measuring 1.2 cm and in the minor fissure on the right. The patient was brought into the intensive care unit. Overnight, he struggled breathing and agitation. He was initially placed on Precedex. He became hypotensive. Subsequently Precedex was discontinued and the patient was placed on Haldol and later on given Ativan 2 mg along with morphine 2 mg. This morning, he is awake. He is on 2 point restraints. His hemoglobin was at 6.2 and he was given units of packed RBC. His lactic acid level initially was around 13.6 and dropped TO 3.4 patient was given IV fluids in the form of normal saline at the rate of 100 mL an hour. His lactic acid level dropped. His echoes at 3.6. He remains on BiPAP at a pressure of 14/6 cm a fourth heart sound. There is tachypneic. He was covered with broad- spectrum antibiotics including a combination of cefepime, Zithromax and vancomycin. Guillen catheter is in place. He is quite cachectic and emaciated. He is not lost. He has had previous admissions. The patient has severe COPD. He has also history of a paralyzed vocal cords. Is a chronic smoker. Other morbid conditions include hypertension, weakness with episodes of fall and the patient has sustained a left humeral fracture, for which he was offered a sling. The patient is also hypotensive at this point in time. He became hypotensive in the ICU. He was given IV fluids and the patient is also on norepinephrine infusion Review of Systems Constitutional: Reports fatigue, Reports weakness, Reports weight loss Eyes: denies as per HPI, denies blurred vision, denies bulging eye, denies decreased vision, denies diplopia, denies discharge, denies dry eye, denies irritation, denies itching, denies pain, denies photophobia, denies loss of peripheral vision, denies loss of vision, denies tunnel vision/blind spots Ears: deny: decreased hearing, ear discharge, earache, tinnitus Ears, nose, mouth and throat: Reports as per HPI Breasts: absent: as per HPI, gynecomastia Cardiovascular: Reports decreased exercise tolerance, Reports dyspnea on exertion Respiratory: Reports cough, Reports dyspnea, Reports home oxygen, Reports respiratory infections, Reports wheezing Genitourinary: Reports as per HPI, Reports hematuria Musculoskeletal: absent: ankle pain, ankle stiffness, ankle swelling, as per HPI, elbow pain, elbow stiffness, elbow swelling, foot pain, foot stiffness, foot swelling, hand pain, hand stiffness, hand swelling, hip pain, hip stiffness, hip swelling, knee pain, knee stiffness, knee swelling, shoulder pain, shoulder stiffness, shoulder swelling, wrist pain, wrist stiffness, wrist swelling Integumentary: Reports as per HPI Neurological: Reports as per HPI Psychiatric: Reports as per HPI Endocrine: Reports as per HPI Hematologic/Lymphatic: Reports as per HPI Allergic/Immunologic: Reports as per HPI Past Medical History Past Medical History: Cancer, GERD/Reflux, Hypertension Additional Past Medical History / Comment(s): paralyzed vocal cord, SKIN CANCER(FACE), metastatic adenocarcinoma of the right lung History of Any Multi-Drug Resistant Organisms: None Reported Past Surgical History: Orthopedic Surgery Additional Past Surgical History / Comment(s): triple endoscopy, LT KNEE SCOPE, LT KNEE MENISCUS SX Past Anesthesia/Blood Transfusion Reactions: No Reported Reaction Additional Past Anesthesia/Blood Transfusion Reaction / Comment(s): . Past Psychological History: No Psychological Hx Reported Smoking Status: Current every day smoker Past Alcohol Use History: None Reported Past Drug Use History: None Reported - Past Family History Father Family Medical History: Congestive Heart Failure (CHF), Myocardial Infarction ([place]) Mother Family Medical History: No Reported History Additional Family Medical History / Comment(s): MOM IS IN GOOD HEALTH AT AGE 96 Medications and Allergies Home Medications Medication Instructions Recorded Confirmed Type HYDROcodone/APAP 7.5-325MG [Lagrange 1 tab PO Q4H PRN 02/13/22 03/06/22 History 7.5-325] Calcium Carbonate [Tums] 500 mg PO Q4H PRN 03/06/22 03/06/22 History LORazepam [Ativan] 0.5 mg PO HS@209903/06/22 03/06/22 History Omeprazole 20 mg PO DAILY@0600 03/06/22 03/06/22 History amLODIPine [Norvasc] 7.5 mg PO DAILY@0900 03/06/22 03/06/22 History dexAMETHasone 2 mg PO BID@0900,209903/06/22 03/06/22 History levETIRAcetam [Keppra] 500 mg PO Q12HR@0900,209903/06/22 03/06/22 History lisinopriL [Zestril] 10 mg PO DAILY@0900 03/06/22 03/06/22 History polyethylene glycoL 3350 [Miralax] 17 gm PO DAILY@0900 03/06/22 03/06/22 History traMADol HCl [Ultram] 50 mg PO BID PRN 03/06/22 03/06/22 History Allergies Allergy/AdvReac Type Severity Reaction Status Date / Time No Known Allergies Allergy Verified 03/06/22 22:23 Physical Exam Vitals: Vital Signs Temp Pulse Resp BP Pulse Ox 03/06/22 18:29 97.6 F 111 H 21 131/80 90 L 03/06/22 18:09 97.8 F 112 H 33 H 120/86 03/06/22 17:55 97.7 F 116 H 23 130/60 98 03/06/22 17:28 84 32 H 90/66 03/06/22 16:55 96 28 H 76/51 97 03/06/22 14:33 97.9 F 85 24 108/67 98 Intake and Output 03/06/22 03/06/22 03/06/22 06:59 14:59 22:59 Intake Total 0 Balance 0 Intake: Blood Product 0 Rc Cpda-1 Unit 0 [id number] Other: Weight 63.503 kg GENERAL EXAM: Alert, pleasant 67-year-old male patient, appears older than stated age, the patient is tachypneic. The patient is anxious. He is currently on once restraints. He is also wearing it all face BiPAP mask at a pressure of 14/6 cm of water. HEAD: Normocephalic. EYES: Normal reaction of pupils, equal size. NOSE: Clear with pink turbinates. THROAT: No erythema or exudates. NECK: No masses, no JVD. CHEST: No chest wall deformity. LUNGS: Equal air entry with bilateral scattered rhonchi. Diminished breath on the left lung base and there is scattered expiratory wheezes of the lung regalado bilaterally. CVS: S1 and S2 normal with no audible murmur, regular rhythm. ABDOMEN: No hepatosplenomegaly, normal bowel sounds, no guarding or rigidity. SPINE: No scoliosis or deformity SKIN: No rashes CENTRAL NERVOUS SYSTEM: No focal deficits, tone is normal in all 4 extremities. EXTREMITIES: Left upper extremity in a sling. There is no peripheral edema. No clubbing, no cyanosis. Peripheral pulses are intact. Results - Laboratory Findings CBC and BMP: 03/07/22 02:25 03/07/22 02:25 ABG ABG pH 7.45 (7.35-7.45) 03/06/22 16:05 ABG pCO2 20 mmHg (35-45) L 03/06/22 16:05 ABG pO2 203 mmHg (83-108) H 03/06/22 16:05 ABG O2 Saturation 100.0 % (94-97) H 03/06/22 16:05 PT/INR, D-dimer PT 10.2 sec (9.0-12.0) 03/06/22 14:23 INR 0.9 (<1.2) 03/06/22 14:23 D-Dimer 3.03 mg/L FEU (<0.60) H 03/06/22 14:23 Abnormal lab findings: Abnormal Labs 03/06/22 03/06/22 03/06/22 14:23 14:23 14:23 WBC 12.9 H RBC 2.76 L Hgb 6.3 L* D Hct 23.5 L MCH 22.7 L MCHC 26.6 L RDW 16.5 H Neutrophils # (Manual) 10.10 H Nucleated RBCs 3 H APTT 21.5 L D-Dimer 3.03 H ABG pCO2 ABG pO2 ABG HCO3 ABG Total CO2 ABG O2 Saturation Chloride 108 H Carbon Dioxide 10 L BUN 26 H Glucose 236 H Plasma Lactic Acid Ivan Troponin I Total Protein 6.0 L Albumin 3.2 L Crossmatch 03/06/22 03/06/22 03/06/22 14:23 14:23 15:53 WBC RBC Hgb Hct MCH MCHC RDW Neutrophils # (Manual) Nucleated RBCs APTT D-Dimer ABG pCO2 ABG pO2 ABG HCO3 ABG Total CO2 ABG O2 Saturation Chloride Carbon Dioxide BUN Glucose Plasma Lactic Acid Ivan 13.6 H* Troponin I 0.038 H* Total Protein Albumin Crossmatch See Detail 03/06/22 03/06/22 16:05 17:34 WBC RBC Hgb Hct MCH MCHC RDW Neutrophils # (Manual) Nucleated RBCs APTT D-Dimer ABG pCO2 20 L ABG pO2 203 H ABG HCO3 14 L ABG Total CO2 14 L ABG O2 Saturation 100.0 H Chloride Carbon Dioxide BUN Glucose Plasma Lactic Acid Ivan 12.6 H* Troponin I Total Protein Albumin Crossmatch - Diagnostic Findings Chest x-ray: image reviewed Assessment and Plan Plan: Metastatic adenocarcinoma of the right lung. The patient has SCRUBBER OPERATOR metastasis status post craniotomy. Seizure activity, recent back in January 2022 related to SCRUBBER OPERATOR metastases and a CAT scan Valerio showed vasogenic edema and effacement of the right lateral ventricle from SCRUBBER OPERATOR metastases. There was an intracranial mass involving the right posterior frontal lobe with surrounding vasogenic edema and it was also effacement of the right lateral ventricle and there is postcraniotomy Acute hypoxic respiratory failure secondary to COPD and extensive left lower lobe pneumonia, currently on BiPAP. The patient carries a DNR/DNI CODE STATUS Severe 02 dependent COPD Acute lactic acidosis, improving with fluid resuscitation Acute hypotension, likely secondary to left lower lobe pneumonia/sepsis., Currently with accommodation cefepime and Zithromax and vancomycin and the patient is also on pressors, currently on norepinephrine running at 0.05 mcg/kg/m. [facility] 19 infection ( september 2021) vaccinated with Moderna x1 in the past, recovered Acute on Chronic anemia and history of chronic gastritis, history of colonic polyps. The hemoglobin was at 6.3 and the patient was given units of packed RBC History of vocal cord paralysis Benign essential hypertension Tobacco dependence syndrome History of underlying COPD presently inactive History of alcoholism Chronic anorexia and weight loss. Left humerus fracture Plan Obtain records on his previous neurologic intervention or surgery that were done on this patient. The patient has a craniotomy scar over the right parietal area Continue BiPAP treatment for now the sense that things. The patient will be also tried on high flow oxygen which I think he would fail and he may need to go back on BiPAP therapy for now Continue same antibiotic coverage check pro calcitonin level The patient on Solu-Medrol 60 mg IV every 6 hours IV fluid resuscitation. Lactic acid levels are improving r. The fluid can be increased up to 150 mL's an hour. We will give another unit of packed RBC May need to continue Ativan on as needed basis for agitation. The patient is less anxious at this point in time. He is also off Precedex. Continue Keppra The patient nothing by mouth for now Lovenox 40 mg subcu portably prophylaxis establish midline Wean off levophed Extremely poor prognosis based on the above. DNR/DNI CODE STATUS.
--- NOTE | 2022-03-07 09:47 | P.PCN ---
Date of Procedure: 03/07/22 Operative Findings: Preoperative Diagnosis: acute hypoxic respiratory failure Postoperative Diagnosis: acute hypoxic respiratory failure Procedure(s) Performed: central line Anesthesia: local Surgeon: Harmony Chatman Estimated Blood Loss (ml): 0 Pathology: other Condition: critical Disposition: ICU Operative Findings: Indication: Hemodynamic monitoring/Intravenous access. A time-out was completed verifying correct patient, procedure, site, positioning, and implant(s) or special equipment if applicable. The patient was placed in a dependent position appropriate for central line placement based on the vein to be cannulated. The patiens right groin was prepped and draped in sterile fashion. 1% Lidocaine was used to anesthetize the surrounding skin area. A triple lumen 9F Cordis catheter was introduced into the right femoral vein using Seldinger technique. The catheter was threaded smoothly over the guide wire and appropriate blood return was obtained. Each lumen of the catheter was evacuated of air and flushed with sterile saline. The catheter was then sutured in place to the skin and a sterile dressing applied. Perfusion to the extremity distal to the point of catheter insertion was checked and found to be adequate. The patient tolerated the procedure well and there were no complications.
[2022-03-07] MEDS: CEFEPIME 2 GM in SODIUM CHLORIDE 0.9% 100 ML IVPB SCH ×3 (10:10→23:09)
[2022-03-07] MEDS: AZITHROMYCIN 500 MG in SODIUM CHLORIDE 0.9% 250 ML IVPB SCH (10:10)
[2022-03-07] MEDS: SODIUM CHLORIDE 0.9% 1,000 ML IV SCH ×3 (10:11→20:33)
[2022-03-07] MEDS: ENOXAPARIN 40 MG/0.4 ML SYRINGE SQ SCH (10:11)
[2022-03-07] MEDS: levETIRAcetam 500 MG TAB PO SCH ×2 (10:11→20:33)
[2022-03-07 11:47] LABS: Glucose,Whole Blood 88 mg/dL (70-110)
[2022-03-07] MEDS: LORazepam 1 MG/0.5 ML VIAL IV PRN ×2 (11:50→22:30)
[2022-03-07] MEDS: methylPREDNISolone SOD SUCCI 125 MG/2 ML VIAL IV SCH ×3 (12:18→23:09)
--- NOTE | 2022-03-07 13:50 | P.HPIM ---
History of Present Illness H&P Date: 03/07/22 This is a 67 year old male with recent diagnosis of metastatic adenocarcinoma of right lung, status post craniotomy, hypertension, gastroesophageal reflux disease, COPD, paralyzed vocal chords, chronic nicotine use, chronic alcohol use, recent left humerous fracture with no surgical intervention has been using immobility sling to left arm. [facility] of breath and hypoxia. He has been at [facility] for sub acute rehab since last admission. He is a poor history and is significantly short of breath when talking. He was initially placed on non rebreather in the EC and transitioned to BiPAP, he is currently on hi flow cannula. He was found to have hemoglobin of 6.2 and is currently receiving 2 units of packed red blood cells. Patient had brain CT completed on admission showing interval right parietal craniotomy flap with CSF density sliver of extra-axial fluid underlying the craniotomy flap measuring 5 mm thick, with a 1.4 cm area of focal hypodensity within the right parietal lobe at the site of previous 2.0 cm parenchymal lesion. Possible posttreatment change. Similar 1.3 cm mid right paramedian parenchymal lesion continues to have some mass effect at the roof of the right lateral ventricle. Prominent white matter hypodensity continues throughout the right frontal and parietal lobes. There is no acute intracranial hemorrage. Patient had D-Dimer of 3.[address] angiography was done showing consolidation and volume loss entire left lower lobe, pneumonia versus mucous impaction. There is right upper lobe mass enlarged from previous imaging, there is also adjacent smaller right upper lobe mass and a third spiculated lesion along the minor fissure is relatively similar at 2.4 cm. Possible esophagitis. Patient presents with white count 12.9, hgb 6.3. Lactic acidosis at 13.6. He does have troponin elevation. Urine showing trace protein, trace blood, large leukocyte esterase. Urine culture pending. Patient is admitted to intensive care unit and started on empiric antibiotic coverage with IV azithromycin, IV c efepime, IV vancomycin. He required precedex overnight for some acute agitation and dyspnea which is currently discontinued. He has haldol as needed for acute aggitation currently. He is also requiring levophed for an initial blood pressure in the 70s systolic and currently attempting to wean. His blood pressure currently is 101/62. Patient has been weaned off BiPAP and is currently on 13 L High Flow cannula with oxygen saturation of 100%. He did have a temperature of 101.1 during the evening. Patient is being hydrated with normal saline. Follow up chest xray this morning showing COPD with known lung mass. Lactic acid has improved with fluid resuscitation, has received 2L fluid bolus. REVIEW OF SYSTEMS: CONSTITUTIONAL: No fever, no malaise, no fatigue. HEENT: No recent visual problems or hearing problems. Denied any sore throat. CARDIOVASCULAR: No chest pain, orthopnea, PND, no palpitations, no syncope. PULMONARY: No shortness of breath, no cough, no hemoptysis. GASTROINTESTINAL: No diarrhea, no nausea, no vomiting, no abdominal pain. NEUROLOGICAL: No headaches, no weakness, no numbness. HEMATOLOGICAL: Denies any bleeding or petechiae. GENITOURINARY: Denies any burning micturition, frequency, or urgency. MUSCULOSKELETAL/RHEUMATOLOGICAL: Denies any joint pain, swelling, or any muscle pain. ENDOCRINE: Denies any polyuria or polydipsia. The rest of the 14-point review of systems is negative. PHYSICAL EXAMINATION: GENERAL: The patient is alert and oriented x3, not in any acute distress. Well developed, well nourished. HEENT: Pupils are round and equally reacting to light. EOMI. No scleral icterus. No conjunctival pallor. Normocephalic, atraumatic. No pharyngeal erythema. No thyromegaly. CARDIOVASCULAR: S1 and S2 present. No murmurs, rubs, or gallops. PULMONARY: Chest is clear to auscultation, no wheezing or crackles. ABDOMEN: Soft, nontender, nondistended, normoactive bowel sounds. No palpable organomegaly. MUSCULOSKELETAL: No joint swelling or deformity. EXTREMITIES: No cyanosis, clubbing, or pedal edema. NEUROLOGICAL: Gross neurological examination did not reveal any focal deficits. SKIN: No rashes. Assessment and Plan Assessment Acute hypoxic respiratory failure from COPD and left lower lobe pneumonia requiring bipap/hi flow cannula Left lower lobe pneumonia with sepsis present on admission Recent diagnosis metastatic adenocarcinoma of right lung Brain metastasis post craniotomy History of seizure activity Acute on chronic anemia with hgb 6.2 Elevated D-Dimer, CTA negative for pulmonary embolism Troponin elevation, possible troponin leak from sepsis Lactic acidosis Recent left humerus fracture with no surgical repair has been using sling History of COPD History gastroesophageal reflux disease History of vocal cord paralysis Hypertension currently being weaned off levophed was hypotensive on admission History of chronic alcohol use Chronic tobacco use GI prophylaxis: Pepcid DVT prophyalxis: Lovenox No Code Plan Patient is being monitored closely in intensive care unit Continue with oxygen support hi flow cannula versus BiPAP Levophed is currently being weaned Continue on empiric antibiotic coverage Continue IV steroids Reports are being obtained regarding craniotomy Continue on IV fluids Monitor labs Procalcitonin level is pending currently The impression and plan of care has been dictated by Amarilis James Nurse Practitioner as directed. Dr. Major MD I have performed a history and physical examination and medical decision making of this patient, discussed the same with the dictator, and agree with the dictators assessment and plan as written, documented as a scribe. Based on total visit time, I have performed more than 50% of this visit. Past Medical History Past Medical History: Cancer, GERD/Reflux, Hypertension Additional Past Medical History / Comment(s): paralyzed vocal cord, SKIN CANCER(FACE), metastatic adenocarcinoma of the right lung History of Any Multi-Drug Resistant Organisms: None Reported Past Surgical History: Orthopedic Surgery Additional Past Surgical History / Comment(s): triple endoscopy, LT KNEE SCOPE, LT KNEE MENISCUS SX Past Anesthesia/Blood Transfusion Reactions: No Reported Reaction Additional Past Anesthesia/Blood Transfusion Reaction / Comment(s): . Past Psychological History: No Psychological Hx Reported Smoking Status: Current every day smoker Past Alcohol Use History: None Reported Past Drug Use History: None Reported - Past Family History Father Family Medical History: Congestive Heart Failure (CHF), Myocardial Infarction (MS) Mother Family Medical History: No Reported History Additional Family Medical History / Comment(s): MOM IS IN GOOD HEALTH AT AGE 96 Medications and Allergies Home Medications Medication Instructions Recorded Confirmed Type HYDROcodone/APAP 7.5-325MG [[place] 1 tab PO Q4H PRN 02/13/22 03/06/22 History 7.5-325] Calcium Carbonate [Tums] 500 mg PO Q4H PRN 03/06/22 03/06/22 History LORazepam [Ativan] 0.5 mg PO HS@2100 03/06/22 03/06/22 History Omeprazole 20 mg PO DAILY@0600 03/06/22 03/06/22 History amLODIPine [Norvasc] 7.5 mg PO DAILY@0900 03/06/22 03/06/22 History dexAMETHasone 2 mg PO BID@0900,2100 03/06/22 03/06/22 History levETIRAcetam [Keppra] 500 mg PO Q12HR@0900,2100 03/06/22 03/06/22 History lisinopriL [Zestril] 10 mg PO DAILY@0900 03/06/22 03/06/22 History polyethylene glycoL 3350 [Miralax] 17 gm PO DAILY@0900 03/06/22 03/06/22 History traMADol HCl [Ultram] 50 mg PO BID PRN 03/06/22 03/06/22 History Allergies Allergy/AdvReac Type Severity Reaction Status Date / Time No Known Allergies Allergy Verified 03/06/22 22:23 Physical Exam Vitals: Vital Signs Temp Pulse Resp BP Pulse Ox FiO2 03/07/22 08:10 50 03/07/22 08:06 50 03/07/22 07:25 50 03/07/22 07:00 85 30 H 100/69 03/07/22 06:30 87 40 H 101/60 03/07/22 06:00 91 28 H 98/56 03/07/22 05:30 68 21 94/76 03/07/22 05:00 71 24 97/80 03/07/22 04:30 79 26 H 90/58 03/07/22 04:20 50 03/07/22 04:00 98.1 F 70 25 H 74/53 03/07/22 03:30 66 25 H 85/37 03/07/22 03:26 50 03/07/22 03:00 88 38 H 79/58 85 L 03/07/22 02:30 87 43 H 87/26 03/07/22 02:00 100 28 H 70/49 03/07/22 01:30 88 38 H 78/52 03/07/22 01:00 105 H 28 H 104/61 100 03/07/22 00:30 96 43 H 107/43 100 03/07/22 00:03 50 03/07/22 00:00 101.1 F H 96 38 H 82/56 100 50 03/06/22 23:30 103 H 42 H 92/58 03/06/22 23:00 102 H 29 H 100/60 84 L 03/06/22 22:30 94 42 H 93/71 98 03/06/22 22:00 99 43 H 90/57 100 03/06/22 21:39 60 03/06/22 21:30 98 30 H 105/42 100 03/06/22 21:00 109 H 43 H 90/80 100 03/06/22 20:51 70 03/06/22 20:50 42 H 90/80 100 03/06/22 20:40 103 H 34 H 88/52 72 L 03/06/22 20:30 105 H 16 103/79 100 03/06/22 20:20 105 H 16 103/79 100 03/06/22 20:16 97.9 F 101 H 40 H 103/79 98 03/06/22 20:10 100 41 H 103/79 100 03/06/22 20:02 80 03/06/22 20:01 100 03/06/22 20:00 97.9 F 103 H 40 H 93/63 90 L 100 03/06/22 19:50 114 H 47 H 93/63 03/06/22 19:40 112 H 35 H 93/63 03/06/22 18:29 97.6 F 111 H 21 131/80 90 L 03/06/22 18:09 97.8 F 112 H 33 H 120/86 03/06/22 17:55 97.7 F 116 H 23 130/60 98 03/06/22 17:28 84 32 H 90/66 03/06/22 16:55 96 28 H 76/51 97 03/06/22 14:33 97.9 F 85 24 108/67 98 Intake and Output 03/06/22 03/07/22 03/07/22 22:59 06:59 14:59 Intake Total 466.460 9384.134 Output Total 1000 390 Balance -631.132 6625.134 Intake: IV 100 1900 Sodium Chloride 0.9% 1, 100 900 000 ml @ 100 mls/hr IV . Q10H [facility] Rx#:[id number] Sodium Chloride 0.9% 1, 1000 000 ml @ 999 mls/hr IV . Q1H1M ONE Rx#:[id number] Intake, IV Titration 6.509 380.134 Amount Cefepime 2 gm In Sodium 100 Chloride 0.9% 100 ml @ 25 mls/hr IVPB Q8HR [facility] Rx# :[id number] Dexmedetomidine/0.9% NaCl 6.509 22.755 (Pmx) 400 mcg In Empty Bag 1 bag @ 0.2 MCG/KG/HR 3.175 mls/hr IV .Q24H [facility] Rx#:[id number] Norepinephrine 4 mg In 7.379 Sodium Chloride 0.9% 250 ml @ 0.03 MCG/KG/MIN 7. 258 mls/hr IV .Q24H [facility] Rx#:[id number] Vancomycin 1,250 mg In 250 Sodium Chloride 0.9% 250 ml @ 125 mls/hr IVPB Q12H [facility] Rx#:[id number] Oral 40 Blood Product 310 Rc Cpda-1 Unit 310 [id number] Output: Urine 1000 390 Other: Voiding Method Indwelling Catheter Indwelling Catheter Weight 59.8 kg Results CBC & Chem 7: 03/07/22 02:25 03/07/22 02:25 Labs: Abnormal Lab Results - Last 24 Hours (Table) 03/06/22 03/06/22 03/06/22 Range/Units 14:23 14:23 14:23 WBC 12.9 H (3.8-10.6) k/uL RBC 2.76 L (4.30-5.90) m/uL Hgb 6.3 L* D (13.0-17.5) gm/dL Hct 23.5 L (39.0-53.0) % MCH 22.7 L (25.0-35.0) pg MCHC 26.6 L (31.0-37.0) g/dL RDW 16.5 H (11.5-15.5) % Neutrophils # (Manual) 10.10 H (1.3-7.7) k/uL Lymphocytes # (Manual) (1.0-4.8) k/uL Metamyelocytes # (Man) (0) k/uL Nucleated RBCs 3 H (0-0) /100 WBC APTT 21.5 L (22.0-30.0) sec D-Dimer 3.03 H (<0.60) mg/L FEU ABG pCO2 (35-45) mmHg ABG pO2 (83-108) mmHg ABG HCO3 (21-25) mmol/L ABG Total CO2 (19-24) mmol/L ABG O2 Saturation (94-97) % Chloride 108 H (98-107) mmol/L Carbon Dioxide 10 L (22-30) mmol/L BUN 26 H (9-20) mg/dL Glucose 236 H (74-99) mg/dL Plasma Lactic Acid Ivan (0.7-2.0) mmol/L Calcium (8.4-10.2) mg/dL Troponin I (0.000-0.034) ng/mL Total Protein 6.0 L (6.3-8.2) g/dL Albumin 3.2 L (3.5-5.0) g/dL Urine Protein (Negative) Urine Blood (Negative) Ur Leukocyte Esterase (Negative) Urine RBC (0-5) /hpf Urine WBC (0-5) /hpf Urine Bacteria (None) /hpf Urine Mucus (None) /hpf Crossmatch 03/06/22 03/06/22 03/06/22 Range/Units 14:23 14:23 15:53 WBC (3.8-10.6) k/uL RBC (4.30-5.90) m/uL Hgb (13.0-17.5) gm/dL Hct (39.0-53.0) % MCH (25.0-35.0) pg MCHC (31.0-37.0) g/dL RDW (11.5-15.5) % Neutrophils # (Manual) (1.3-7.7) k/uL Lymphocytes # (Manual) (1.0-4.8) k/uL Metamyelocytes # (Man) (0) k/uL Nucleated RBCs (0-0) /100 WBC APTT (22.0-30.0) sec D-Dimer (<0.60) mg/L FEU ABG pCO2 (35-45) mmHg ABG pO2 (83-108) mmHg ABG HCO3 (21-25) mmol/L ABG Total CO2 (19-24) mmol/L ABG O2 Saturation (94-97) % Chloride (98-107) mmol/L Carbon Dioxide (22-30) mmol/L BUN (9-20) mg/dL Glucose (74-99) mg/dL Plasma Lactic Acid Ivan 13.6 H* (0.7-2.0) mmol/L Calcium (8.4-10.2) mg/dL Troponin I 0.038 H* (0.000-0.034) ng/mL Total Protein (6.3-8.2) g/dL Albumin (3.5-5.0) g/dL Urine Protein (Negative) Urine Blood (Negative) Ur Leukocyte Esterase (Negative) Urine RBC (0-5) /hpf Urine WBC (0-5) /hpf Urine Bacteria (None) /hpf Urine Mucus (None) /hpf Crossmatch See Detail 03/06/22 03/06/22 03/06/22 Range/Units 16:05 17:34 21:03 WBC (3.8-10.6) k/uL RBC (4.30-5.90) m/uL Hgb (13.0-17.5) gm/dL Hct (39.0-53.0) % MCH (25.0-35.0) pg MCHC (31.0-37.0) g/dL RDW (11.5-15.5) % Neutrophils # (Manual) (1.3-7.7) k/uL Lymphocytes # (Manual) (1.0-4.8) k/uL Metamyelocytes # (Man) (0) k/uL Nucleated RBCs (0-0) /100 WBC APTT (22.0-30.0) sec D-Dimer (<0.60) mg/L FEU ABG pCO2 20 L (35-45) mmHg ABG pO2 203 H (83-108) mmHg ABG HCO3 14 L (21-25) mmol/L ABG Total CO2 14 L (19-24) mmol/L ABG O2 Saturation 100.0 H (94-97) % Chloride (98-107) mmol/L Carbon Dioxide (22-30) mmol/L BUN (9-20) mg/dL Glucose (74-99) mg/dL Plasma Lactic Acid Ivan 12.6 H* 5.3 H* (0.7-2.0) mmol/L Calcium (8.4-10.2) mg/dL Troponin I (0.000-0.034) ng/mL Total Protein (6.3-8.2) g/dL Albumin (3.5-5.0) g/dL Urine Protein (Negative) Urine Blood (Negative) Ur Leukocyte Esterase (Negative) Urine RBC (0-5) /hpf Urine WBC (0-5) /hpf Urine Bacteria (None) /hpf Urine Mucus (None) /hpf Crossmatch 03/06/22 03/06/22 03/07/22 Range/Units 23:39 Unknown 02:25 WBC (3.8-10.6) k/uL RBC (4.30-5.90) m/uL Hgb (13.0-17.5) gm/dL Hct (39.0-53.0) % MCH (25.0-35.0) pg MCHC (31.0-37.0) g/dL RDW (11.5-15.5) % Neutrophils # (Manual) (1.3-7.7) k/uL Lymphocytes # (Manual) (1.0-4.8) k/uL Metamyelocytes # (Man) (0) k/uL Nucleated RBCs (0-0) /100 WBC APTT (22.0-30.0) sec D-Dimer (<0.60) mg/L FEU ABG pCO2 (35-45) mmHg ABG pO2 (83-108) mmHg ABG HCO3 (21-25) mmol/L ABG Total CO2 (19-24) mmol/L ABG O2 Saturation (94-97) % Chloride 115 H (98-107) mmol/L Carbon Dioxide 14 L (22-30) mmol/L BUN 33 H (9-20) mg/dL Glucose (74-99) mg/dL Plasma Lactic Acid Ivan 4.8 H* (0.7-2.0) mmol/L Calcium 8.0 L (8.4-10.2) mg/dL Troponin I (0.000-0.034) ng/mL Total Protein (6.3-8.2) g/dL Albumin (3.5-5.0) g/dL Urine Protein Trace H (Negative) Urine Blood Trace H (Negative) Ur Leukocyte Esterase Large H (Negative) Urine RBC 9 H (0-5) /hpf Urine WBC >182 H (0-5) /hpf Urine Bacteria Many H (None) /hpf Urine Mucus Rare H (None) /hpf Crossmatch 03/07/22 03/07/22 03/07/22 Range/Units 02:25 04:37 05:13 WBC 3.2 L (3.8-10.6) k/uL RBC 2.51 L (4.30-5.90) m/uL Hgb 6.2 L* (13.0-17.5) gm/dL Hct 20.2 L (39.0-53.0) % MCH 24.8 L (25.0-35.0) pg MCHC 30.7 L (31.0-37.0) g/dL RDW 15.6 H (11.5-15.5) % Neutrophils # (Manual) (1.3-7.7) k/uL Lymphocytes # (Manual) 0.90 L (1.0-4.8) k/uL Metamyelocytes # (Man) 0.03 H (0) k/uL Nucleated RBCs 5 H (0-0) /100 WBC APTT (22.0-30.0) sec D-Dimer (<0.60) mg/L FEU ABG pCO2 (35-45) mmHg ABG pO2 (83-108) mmHg ABG HCO3 (21-25) mmol/L ABG Total CO2 (19-24) mmol/L ABG O2 Saturation (94-97) % Chloride (98-107) mmol/L Carbon Dioxide (22-30) mmol/L BUN (9-20) mg/dL Glucose (74-99) mg/dL Plasma Lactic Acid Ivan 3.4 H* (0.7-2.0) mmol/L Calcium (8.4-10.2) mg/dL Troponin I 0.066 H* (0.000-0.034) ng/mL Total Protein (6.3-8.2) g/dL Albumin (3.5-5.0) g/dL Urine Protein (Negative) Urine Blood (Negative) Ur Leukocyte Esterase (Negative) Urine RBC (0-5) /hpf Urine WBC (0-5) /hpf Urine Bacteria (None) /hpf Urine Mucus (None) /hpf Crossmatch Microbiology - Last 24 Hours (Table) 03/06/22 Unknown Urine Culture - Preliminary Urine,Voided Assessment and Plan Time with Patient: Greater than 30
[2022-03-07 14:58] LABS: Anisocytosis Slight; HCT 20.7 % (39.0-53.0); Hypochromasia Marked; MCH 26.3 pg (25.0-35.0); MCHC 31.5 g/dL (31.0-37.0); MCV 83.3 fL (80.0-100.0); Mean Platelet Volume 8.9; Platelet Count 201 k/uL (150-450); Poikilocytosis Moderate; RBC 2.49 m/uL (4.30-5.90); RDW 16.1 % (11.5-15.5); WBC 5.8 k/uL (3.8-10.6)
[2022-03-07 14:59] LABS: HGB 6.5 gm/dL (13.0-17.5)
[2022-03-07] MEDS: DEXMEDETOMIDINE/0.9% NACL(PMX) 400 MCG in EMPTY BAG 1 BAG IV SCH (17:13)
[2022-03-07 18:38] LABS: Glucose,Whole Blood 146 mg/dL (70-110)
[2022-03-07] MEDS: FAMOTIDINE 20 MG/2 ML VIAL IV SCH (20:33)
[2022-03-07 22:31] LABS: HCT 26.2 % (39.0-53.0); Hypochromasia Marked; MCH 27.6 pg (25.0-35.0); MCHC 31.3 g/dL (31.0-37.0); Mean Platelet Volume 8.7; Platelet Count 184 k/uL (150-450); Poikilocytosis Moderate; RBC 2.97 m/uL (4.30-5.90); RDW 15.2 % (11.5-15.5); WBC 6.3 k/uL (3.8-10.6)
[2022-03-07 22:57] LABS: HGB 8.2 gm/dL (13.0-17.5); MCV 88.3 fL (80.0-100.0)
[2022-03-07 23:51] LABS: Glucose,Whole Blood 132 mg/dL (70-110)
[2022-03-08] MEDS: HALOPERIDOL LACTATE 5 MG/ML 1 ML VIAL IVP PRN (00:20)
[2022-03-08] MEDS: NOREPINEPHRINE 4 MG in SODIUM CHLORIDE 0.9% 250 ML IV SCH (04:24)
[2022-03-08] MEDS: SODIUM CHLORIDE 0.9% 1,000 ML IV SCH (04:32)
[2022-03-08] MEDS: VANCOMYCIN 1,250 MG in SODIUM CHLORIDE 0.9% 250 ML IVPB SCH (05:14)
[2022-03-08] MEDS: methylPREDNISolone SOD SUCCI 125 MG/2 ML VIAL IV SCH ×3 (05:14→17:32)
[2022-03-08 06:06] LABS: Glucose,Whole Blood 143 mg/dL (70-110)
[2022-03-08 08:05] LABS: African American GFR (CKD) >90 (>60 ml/min/1.73 sqM); Anion Gap 9 mmol/L; Blood Urea Nitrogen 19 mg/dL (9-20); Calcium 7.7 mg/dL (8.4-10.2); Carbon Dioxide 13 mmol/L (22-30); Chloride 123 mmol/L (98-107); Glucose 120 mg/dL (74-99); Non-African American GFR(CKD) >90 (>60 ml/min/1.73 sqM); Potassium 3.2 mmol/L (3.5-5.1); Sodium 145 mmol/L (137-145)
[2022-03-08] MEDS ORDERED: Potassium Replacement Protocol 1 EACH MISC MISCELLANE PRN (08:09)
[2022-03-08 08:35] LABS: Basophils % (A) 1 %; Eosinophils % (A) 0 %; HCT 26.2 % (39.0-53.0); Hypochromasia Marked; Lymphocytes # (A) 0.5 k/uL (1.0-4.8); Lymphocytes % (A) 9 %; MCH 26.4 pg (25.0-35.0); MCHC 30.7 g/dL (31.0-37.0); MCV 86.2 fL (80.0-100.0); Mean Platelet Volume 8.7; Monocytes # (A) 0.2 k/uL (0-1.0); Monocytes % (A) 4 %; Neutrophils # (A) 4.7 k/uL (1.3-7.7); Neutrophils % (A) 86 %; Platelet Count 158 k/uL (150-450); Poikilocytosis Moderate; RBC 3.04 m/uL (4.30-5.90); RDW 15.5 % (11.5-15.5); WBC 5.5 k/uL (3.8-10.6)
[2022-03-08] MEDS: CEFEPIME 2 GM in SODIUM CHLORIDE 0.9% 100 ML IVPB SCH ×2 (09:04→16:10)
[2022-03-08] MEDS: POTASSIUM CHLORIDE 20 MEQ in WATER FOR INJECTION 1 100ML.BAG IVPB SCH ×2 (09:04→12:15)
[2022-03-08] MEDS: AZITHROMYCIN 500 MG in SODIUM CHLORIDE 0.9% 250 ML IVPB SCH (09:04)
[2022-03-08] MEDS: levETIRAcetam 500 MG TAB PO SCH ×2 (09:05→21:48)
[2022-03-08] MEDS: ENOXAPARIN 40 MG/0.4 ML SYRINGE SQ SCH (09:05)
[2022-03-08] MEDS: FAMOTIDINE 20 MG/2 ML VIAL IV SCH ×2 (09:05→21:48)
--- NOTE | 2022-03-08 09:52 | P.PN ---
Subjective Progress Note Date: 03/08/22 67-year-old male patient with metastatic adenocarcinoma of the lung, recent diagnosis was made by bronchoscopy and biopsy of a right lung mass. 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 The patient has undergone previous craniotomy. The exact timing and the details of the craniotomy is not known. The patient came into the emergency department with worsening shortness of breath and increased anxiety. He stated that he was unable to breathe. He was having increased tachypnea and the patient was also hypoxic. Immediately, the patient was placed initially on 100% nonrebreather facemask of alignment of the patient was transitioned to a BiPAP mask. CAT scan of the brain was done and it showed a craniotomy flap over the right parietal area. The same time, there was some postsurgical changes and a 1.4 cm lesion along the right parietal lobe site that was previously 2.0 cm in size. There was another 1.3 cm right paramedian lesion causing some mass effect on the lateral ventricle on the right. Also, CAT scan of the chest was not any children of this of any pulmonary embolism. There was extensive consolidation of the left lower lobe. There was also a large right lung mass measuring approximately 4.7 x 3.7 cm inside that had grown in addition to other satellite lesions in the right upper lobe measuring 1.2 cm and in the minor fissure on the right. The patient was brought into the intensive care unit. Overnight, he struggled breathing and agitation. He was initially placed on Precedex. He became hypotensive. Subsequently Precedex was discontinued and the patient was placed on Haldol and later on given Ativan 2 mg along with morphine 2 mg. This morning, he is awake. He is on 2 point restraints. His hemoglobin was at 6.2 and he was given units of packed RBC. His lactic acid level initially was around 13.6 and dropped TO 3.4 patient was given IV fluids in the form of normal saline at the rate of 100 mL an hour. His lactic acid level dropped. His echoes at 3.6. He remains on BiPAP at a pressure of 14/6 cm a fourth heart sound. There is tachypneic. He was covered with broad- spectrum antibiotics including a combination of cefepime, Zithromax and vancom ycin. Guillen catheter is in place. He is quite cachectic and emaciated. He is not lost. He has had previous admissions. The patient has severe COPD. He has also history of a paralyzed vocal cords. Is a chronic smoker. Other morbid conditions include hypertension, weakness with episodes of fall and the patient has sustained a left humeral fracture, for which he was offered a sling. The patient is also hypotensive at this point in time. He became hypotensive in the ICU. He was given IV fluids and the patient is also on norepinephrine infusion On today's evaluation of 03/08/2022, the patient is much more comfortable. Overnight, he did have some agitation and restlessness, he was given Ativan and Haldol and currently is much more comfortable. His pulse ox is 95% and I'll leave the FiO2 down to 4 L. Is currently off the BiPAP. He is on a combination of antibiotics including cefepime, Zithromax and vancomycin. Repeat chest x-ray shows a right upper lobe mass. No significant consolidation of the left lower lobe. The patient's echoes at 5.5 with a hemoglobin of 8. Electrolytes are all stable. The serum bicarb is at 13 and is consistent with melena negative metabolic acidosis and potassium levels at 3.2 that needs to be replaced. BUN is at 19 with a creatinine of 0.6. The patient is receiving IV fluids in the form of 0.9 at the rate of 1 50 mL an hour. There was a troponin leak. Pro-calcitonin with a 14.7. UA was abnormal. Over 19 testing was negative. Cultures are negative including the blood culture the urine culture still pending for now. No fever. Hemodynamically stable. No seizure activity has been noted. Remains on bronchodilators and steroids. He received packed RBC total of 3 units and hemoglobin is stable for now. Has a triple-lumen catheter in his right femoral vein. Objective - Vital Signs Vital signs: Vital Signs Temp 98.0 F 03/08/22 04:00 Pulse 86 03/08/22 07:00 Resp 23 03/08/22 07:00 BP 129/74 03/08/22 07:00 Pulse Ox 100 03/08/22 07:42 FiO2 100 03/08/22 07:42 Intake & Output 03/07/22 03/08/22 03/08/22 18:59 06:59 18:59 Intake Total 3000.284 1950 475 Output Total 1090 835 300 Balance 7728.031 6022 175 Weight 62.1 kg Intake: IV 2300 1950 475 Azithromycin 500 mg In 250 250 Sodium Chloride 0.9% 250 ml @ 250 mls/hr IVPB DAILY [facility] Rx#:[id number] Cefepime 2 gm In Sodium 200 25 Chloride 0.9% 100 ml @ 25 mls/hr IVPB Q8HR [facility] Rx# :[id number] Potassium Chloride 20 meq 50 In Water For Injection 1 100ml.bag @ 50 mls/hr IVPB Q2H [facility] Rx#: [id number] Sodium Chloride 0.9% 1, 1600 1950 150 000 ml @ 150 mls/hr IV . Q6H40M [facility] Rx#:[id number] Vancomycin 1,250 mg In 250 Sodium Chloride 0.9% 250 ml @ 125 mls/hr IVPB Q12H [facility] Rx#:[id number] Intake, IV Titration 80.284 Amount Norepinephrine 4 mg In 80.284 Sodium Chloride 0.9% 250 ml @ 0.03 MCG/KG/MIN 7. 258 mls/hr IV .Q24H [facility] Rx#:[id number] Blood Product 620 Rc As-1 Unit 310 [id number] Rc Cpda-1 Unit 310 [id number] Output: Urine 1090 835 300 Other: Voiding Method Indwelling Catheter Indwelling Catheter - Exam GENERAL EXAM: Alert, pleasant 67-year-old male patient, appears older than stated age, the patient resting comfortably. No agitation. No restlessness. No tachypnea. Oxygen has been weaned down to 4 L. HEAD: Normocephalic. EYES: Normal reaction of pupils, equal size. NOSE: Clear with pink turbinates. THROAT: No erythema or exudates. NECK: No masses, no JVD. CHEST: No chest wall deformity. LUNGS: Equal air entry with bilateral scattered rhonchi. Diminished breath on the left lung base and there is scattered expiratory wheezes of the lung regalado bilaterally. CVS: S1 and S2 normal with no audible murmur, regular rhythm. ABDOMEN: No hepatosplenomegaly, normal bowel sounds, no guarding or rigidity. SPINE: No scoliosis or deformity SKIN: No rashes CENTRAL NERVOUS SYSTEM: No focal deficits, tone is normal in all 4 extremities. EXTREMITIES: Left upper extremity in a sling. There is no peripheral edema. No clubbing, no cyanosis. Peripheral pulses are intact. - Labs CBC & Chem 7: 03/08/22 06:56 03/08/22 06:56 Labs: Abnormal Lab Results - Last 24 Hours (Table) 03/06/22 03/07/22 03/07/22 Range/Units 15:53 08:15 14:43 RBC 2.49 L (4.30-5.90) m/uL Hgb 6.5 L* (13.0-17.5) gm/dL Hct 20.7 L (39.0-53.0) % MCHC (31.0-37.0) g/dL RDW 16.1 H (11.5-15.5) % Lymphocytes # (1.0-4.8) k/uL Potassium (3.5-5.1) mmol/L Chloride (98-107) mmol/L Carbon Dioxide (22-30) mmol/L Creatinine (0.66-1.25) mg/dL Glucose (74-99) mg/dL POC Glucose (mg/dL) (70-110) mg/dL Calcium (8.4-10.2) mg/dL Procalcitonin 14.70 H (0.02-0.09) ng/mL Crossmatch See Detail 03/07/22 03/07/22 03/07/22 Range/Units 18:35 21:59 23:48 RBC 2.97 L (4.30-5.90) m/uL Hgb 8.2 L D (13.0-17.5) gm/dL Hct 26.2 L (39.0-53.0) % MCHC (31.0-37.0) g/dL RDW (11.5-15.5) % Lymphocytes # (1.0-4.8) k/uL Potassium (3.5-5.1) mmol/L Chloride (98-107) mmol/L Carbon Dioxide (22-30) mmol/L Creatinine (0.66-1.25) mg/dL Glucose (74-99) mg/dL POC Glucose (mg/dL) 146 H 132 H (70-110) mg/dL Calcium (8.4-10.2) mg/dL Procalcitonin (0.02-0.09) ng/mL Crossmatch 10/03/08/22 03/08/22 Range/Units 06:04 06:56 06:56 RBC 3.04 L (4.30-5.90) m/uL Hgb 8.0 L (13.0-17.5) gm/dL Hct 26.2 L (39.0-53.0) % MCHC 30.7 L (31.0-37.0) g/dL RDW (11.5-15.5) % Lymphocytes # 0.5 L (1.0-4.8) k/uL Potassium 3.2 L (3.5-5.1) mmol/L Chloride 123 H (98-107) mmol/L Carbon Dioxide 13 L (22-30) mmol/L Creatinine 0.64 L (0.66-1.25) mg/dL Glucose 120 H (74-99) mg/dL POC Glucose (mg/dL) 143 H (70-110) mg/dL Calcium 7.7 L (8.4-10.2) mg/dL Procalcitonin (0.02-0.09) ng/mL Crossmatch Microbiology - Last 24 Hours (Table) 03/06/22 15:53 Blood Culture - Preliminary Blood No Growth after 24 hours 03/06/22 15:53 Blood Culture - Preliminary Blood No Growth after 24 hours Assessment and Plan Plan: Metastatic adenocarcinoma of the right lung. The patient has DE[employer]IST metastasis status post craniotomy. Seizure activity, recent back in January 2022 related to DEBT [employer]LE[employer]IST metastases and a CAT scan Valerio showed vasogenic edema and effacement of the right lateral ventricle from DEBT [employer]LECTION [employer]IST metastases. There was an intracranial mass involving the right posterior frontal lobe with surrounding vasogenic edema and it was also effacement of the right lateral ventricle and there is postcraniotomy. Currently the patient is free of any seizures Acute hypoxic respiratory failure secondary to COPD and extensive left lower lobe pneumonia, currently on BiPAP. The patient carries a DNR/DNI CODE STATUS. Over the past 24 hours, the patient was taken off the BiPAP and the patient is currently on 4 L O2 nasal cannula. Chest x-ray from today shows no significant volume loss or consolidation of the left lung base. There is a right upper lobe mass though present. His pro calcitonin level is elevated. Cultures are still pending for now. The patient is on broad-spectrum antibiotics Non-anion gap metabolic acidosis Elevated. Troponin level, rule out underlying UTI Severe 02 dependent COPD Acute lactic acidosis, improving with fluid resuscitation Acute hypotension, likely secondary to left lower lobe pneumonia/sepsis., Currently with accommodation cefepime and Zithromax and vancomycin and the patient is also on pressors, currently on norepinephrine running at 0.05 mcg/kg/m. the patient was resuscitated with IV fluids, blood products and pressors and currently is off pressors. Is without pressors since yesterday at 2 PM. COVID 19 infection ( september 2021) vaccinated with Moderna x1 in the past, recovered Acute on Chronic anemia and history of chronic gastritis, history of colonic polyps. The hemoglobin was at 6.3 and the patient was given units of packed RBC History of vocal cord paralysis Benign essential hypertension Tobacco dependence syndrome History of underlying COPD presently inactive History of alcoholism Chronic anorexia and weight loss. Left humerus fracture Plan Discontinue BiPAP Use oxygen at 4 L Provide the patient incentive spirometer Monitor mental status and use only Haldol for agitation and discontinued the Ativan Replace the bicarb deficit by a bicarbonate infusion at the rate of 100 mL an hour Continue with IV steroids Discontinue the vancomycin Continue cefepime and discontinue the Zithromax and switched that to Levaquin We'll monitor the pro calcitonin level A total of 3 units of packed RBC has been given No agitation and the patient is currently off Precedex The patient is doing okay with some soft diet. We'll also advance his diet as tolerated. His taken neck is thick material at this point in time. Continue Keppra The patient nothing by mouth for now Lovenox 40 mg subcu portably prophylaxis off levophed Discuss family his prognosis which is essentially poor Critical care evaluation more than 30 minutes arrival to get his food okay Extremely poor prognosis based on the above. DNR/DNI CODE STATUS. Time with Patient: Greater than 30
--- NOTE | 2022-03-08 10:06 | CDI ---
Documentation Clarification Form Date: 03/08/2022 09:43:51 AM From: Olivia Mckay CCS, CCDS Admit Date: 03/06/2022 05:01:00 PM Patient Name: Wicho Ryan Visit Number: [id number] Discharge Date: ATTENTION: The Clinical Documentation Specialists (CDI) and [facility] Coding Staff appreciate your assistance in clarifying documentation. Please respond to the clarification below the line at the bottom and electronically sign. The CDI & [facility] Coding staff will review the response and follow-up if needed. Please note: Queries are made part of the Legal Health Record. If you have any questions, please contact the author of this message via ITS. Dr. Yuval Gonsalves: The patient presented with SOB and was slightly altered with a recent diagnosis of lung cancer and metastatic disease to the brain. Sent to the ED by Orthopedic office where he was being seen for a left fractured humerus, became very SOB, EMS was called to the office. In the ED, the patient was noted to be Septic and diagnosed with Pneumonia, given 2L fluid and started on antibiotics. Additional clarification regarding possible Shock is requested. Patient history/risk factors per the 03/07 H/P: Metastatic Adenocarcinoma of the Right Lung with Brain mets status post craniotomy, Hypertension, GERD, COPD, paralyzed vocal cords, Chronic Nicotine use, Chronic Alcohol use, Left humerus fracture with Sling. Clinical Indicators: Presented to the ED on 03/06 with SOB from an Orthopedic Office via EMS. Very anxious, not wanting to keep O2 mask on, complained of a headache, in moderate distress. Met Sepsis criteria with Pallor, Rales and Tachycardia. Admit with Dyspnea, Lactic Acidosis, Pneumonia, Sepsis, Elevated Troponin, Anemia. 03/06 VS: T 97.9, P 85, 116; R 24, 28, 32; BP 108/67, 76/51, 130/60; PO 98 15% nrb - 98 high flow, BMI: 20.8. 03/06 LAB: WBC 12.9, RBC 2.76, Hgb 6.3, Hct 23.5, Neutrophils 10.10, Nucleated RBCs 3; APTT 21.5, D Dimer 3.03; Chl 108, CO2 10, BUN 26, Glucose 236, Lactic Acid 13.6, 12.6, 4.8; Troponin 0.038, Total protein 6.0, Albumin 3.2. Blood Gas: ABG: pCO2 20, pO2 203, HCO3 14, total CO2 14, O2 Sat 100.0. 03/06 UA: Cloudy, Trace Protein, Trace Blood, Large Esterase, RBC 9, WBC >182. 03/06 COVID: negative 03/06 CT Chest: No PE. New volume loss & consolidation entire LLL correlate for pneumonia and/or endobronchial mucoid, Enlarging dominant mass posterior RUL and adjacent posterior RUL mass, 03/06 EKG: R 104 sinus tachycardia, ST deviation consider inferior ischemia. Treatment 03/06: Admit to ICU, Pulmonary/[facility] Tr[facility] Consult, Blood Culture, Sputum Culture, urine culture, O2 BiPAP - High Flow, IV Ativan 0.5 mg x2, IV Cefepime 100 mls @ 200 mls/hr x1, IV na Chl 2,000 mls @ 999 mls/hr q2H, IV Vancomycin 250 mls @ 125 mls/hr x1, IV Precedex 100 mls @ 3.175 mls/hr, IV Na Chl 1,000 mls @ 100 mls/hr q10H, IV Cefepime 100 mls @ 26 mls/hr q8H, IV Tylenol 100 mls @ 400 mls/hr x1, IV Na Chl 1,000 mls @ 999 mls/hr q1H, Blood Transfusion: 1 unit PRBCs. 03/07 IV Levophed 254 mls @ 7.258 mls/hr q24H, Blood Transfusions: 2 units PRBCs, Central line placed for Acute Hypoxic Respiratory Failure. Please clarify if Shock is present and please specify the Type if known: [ x ] Septic Shock [ ] Hypovolemic Shock [ ] Other, please specify [ ] Unable to determine (Template Last Revised: July 2020) MTDD
[2022-03-08] MEDS: LEVOFLOXACIN 750MG-D5W PMX 750 MG in DEXTROSE/WATER 1 150ML.BAG IVPB SCH (10:11)
--- NOTE | 2022-03-08 10:13 | CDI ---
Documentation Clarification Form Date: 03/08/2022 10:07:00 AM From: Olivia Mckay CCS, CCDS Admit Date: 03/06/2022 05:01:00 PM Patient Name: Wicho Ryan Visit Number: [id number] Discharge Date: ATTENTION: The Clinical Documentation Specialists (CDI) and [facility] Coding Staff appreciate your assistance in clarifying documentation. Please respond to the clarification below the line at the bottom and electronically sign. The CDI & [facility] Coding staff will review the response and follow-up if needed. Please note: Queries are made part of the Legal Health Record. If you have any questions, please contact the author of this message via ITS. Dr. Yuval Gonsalves: Acute on Chronic Anemia is documented in the 03/06 Pulmonary/[facility] Helper Consult and the 03/07 H/P, also documented in the 03/06 ED Note Clinical Impression without further specificity. Additional specificity regarding the Type & Acuity of Anemia is requested. Patient history/risk factors per the 03/07 H/P: Metastatic Adenocarcinoma of the Right Lung with Brain mets status post craniotomy, Hypertension, GERD, COPD, paralyzed vocal cords, Chronic Nicotine use, Chronic Alcohol use, Left humerus fracture with Sling. Clinical Indicators: Presented to the ED on 03/06 with SOB from an Orthopedic Office via EMS. Very anxious, not wanting to keep O2 mask on, complained of a headache, in moderate distress. Met Sepsis criteria with Pallor, Rales and Tachycardia. Admit with Dyspnea, Lactic Acidosis, Pneumonia, Sepsis, Elevated Troponin, Anemia. 03/06 VS: T 97.9, P 85, 116; R 24, 28, 32; BP 108/67, 76/51, 130/60; PO 98 15% nrb - 98 high flow, BMI: 20.8. 03/06 LAB: WBC 12.9, RBC 2.76, Hgb 6.3, Hct 23.5, Neutrophils 10.10, Nucleated RBCs 3; APTT 21.5, D Dimer 3.03; Chl 108, CO2 10, BUN 26, Glucose 236, Lactic Acid 13.6, 12.6, 4.8; Troponin 0.038, Total protein 6.0, Albumin 3.2. Treatment 03/06: Admit to ICU, Pulmonary/Soaker Helper Consult, Blood Culture, Sputum Culture, urine culture, O2 BiPAP - High Flow, IV Ativan 0.5 mg x2, IV Cefepime 100 mls @ 200 mls/hr x1, IV na Chl 2,000 mls @ 999 mls/hr q2H, IV Vancomycin 250 mls @ 125 mls/hr x1, IV Precedex 100 mls @ 3.175 mls/hr, IV Na Chl 1,000 mls @ 100 mls/hr q10H, IV Cefepime 100 mls @ 26 mls/hr q8H, IV Tylenol 100 mls @ 400 mls/hr x1, IV Na Chl 1,000 mls @ 999 mls/hr q1H, Blood Transfusion: 1 unit PRBCs. 03/07 IV Levophed 254 mls @ 7.258 mls/hr q24H, Blood Transfusions: 2 units PRBCs, Central line placed for Acute Hypoxic Respiratory Failure. Please clarify the Type & Acuity of Anemia: [ ] Acute blood loss anemia [ ] Acute on chronic blood loss anemia [ ] Hemolytic anemia [ ] Drug induced anemia [ ] Anemia due to malignancy [ ] Nutritional anemia [ x ] Anemia of chronic disease [ ] Unable to determine [ ] Other, please specify (Template Last Revised: June 2020) MTDD
[2022-03-08 11:39] LABS: Glucose,Whole Blood 148 mg/dL (70-110)
[2022-03-08] MEDS: DEXTROSE 5% IN WATER 1,000 ML with SODIUM BICARB (1 MEQ/ML) 150 ML IV SCH (12:14)
--- NOTE | 2022-03-08 16:40 | P.PN ---
Subjective Progress Note Date: 03/08/22 This is a 67 year old male with recent diagnosis of metastatic adenocarcinoma of right lung, status post craniotomy, hypertension, gastroesophageal reflux disease, COPD, paralyzed vocal chords, chronic nicotine use, chronic alcohol use, recent left humerous fracture with no surgical intervention has been using immobility sling to left arm. Patient [facility] shortness of breath and hypoxia. He has been at [facility] for sub acute rehab since last admission. He is a poor history and is significantly short of breath when talking. He was initially placed on non rebreather in the EC and transitioned to BiPAP, he is currently on hi flow cannula. He was found t o have hemoglobin of 6.2 and is currently receiving 2 units of packed red blood cells. Patient had brain CT completed on admission showing interval right parietal craniotomy flap with CSF density sliver of extra-axial fluid underlying the craniotomy flap measuring 5 mm thick, with a 1.4 cm area of focal hypodensity within the right parietal lobe at the site of previous 2.0 cm parenchymal lesion. Possible posttreatment change. Similar 1.3 cm mid right paramedian parenchymal lesion continues to have some mass effect at the roof of the right lateral ventricle. Prominent white matter hypodensity continues throughout the right frontal and parietal lobes. There is no acute intracranial hemorrage. Patient had D-Dimer of 3.[address] angiography was done showing consolidation and volume loss entire left lower lobe, pneumonia versus mucous impaction. There is right upper lobe mass enlarged from previous imaging, there is also adjacent smaller right upper lobe mass and a third spiculated lesion along the minor fissure is relatively similar at 2.4 cm. Possible esophagitis. Patient presents with white count 12.9, hgb 6.3. Lactic acidosis at 13.6. He does have troponin elevation. Urine showing trace protein, trace blood, large leukocyte esterase. Urine culture pending. Patient is admitted to intensive care unit and started on empiric antibiotic coverage with IV azithromycin, IV cefepim e, IV vancomycin. He required precedex overnight for some acute agitation and dyspnea which is currently discontinued. He has haldol as needed for acute aggitation currently. He is also requiring levophed for an initial blood pressure in the 70s systolic and currently attempting to wean. His blood p ressure currently is 101/62. Patient has been weaned off BiPAP and is currently on 13 L High Flow cannula with oxygen saturation of 100%. He did have a temperature of 101.1 during the evening. Patient is being hydrated with normal saline. Follow up chest xray this morning showing COPD with known lung mass. Lactic acid has improved with fluid resuscitation, has received 2L fluid bolus. 03/08/2022 Patient is evaluated in follow up in the intensive care unit, currently has sitter at the bedside. Has been less agitated. He is alert x2 today, and more awake. He is less short of breath, able to carry on a conversation. Was able to talk with patients daughter kaylyn this morning who is the DPOA. Per Kaylyn patient had seizure like activity at [facility] and from there was brought to [facility] and was found to have brain lesion and underwent craniotomy this was done about 2 to 3 weeks ago and from hospital was brought back to [facility] to continue with rehab. He was at orthopedics and was significant short of breath and brought to the hospital. This was his initial follow up at since being discharge to [facility] with left humerus fracture. Oxygen has been weaned down to 9 L high flow cannula with oxygen saturation 93% and hopeful he will be able to be further weaned today. he continues to maintain blood pressure 120s systolic off pressor support. Continues on empiric antibiotic coverage with IV cefepime, IV levaquin. Continues on IV solumedrol, started on bicarb gtt. labs reviewed today: White count today stable at 5.5, hgb 8.0, sodium 145, potassium 3.2, BUN 19, creatinine 0.64. Blood glucose in the 140s. Review of Systems Constitutional: Denied any fatigue denied any fever. Cardio vascular: denied any chest pain, palpitations Gastrointestinal: denied any nausea, vomiting, diarrhea Pulmonary: Denied any shortness of breath cough Neurologic denied any new focal deficits All inpatient medications were reviewed and appropriate changes in these medications as dictated in the interval history and assessment and plan. PHYSICAL EXAMINATION: GENERAL: The patient is alert and oriented x3, not in any acute distress. Well developed, well nourished. HEENT: Pupils are round and equally reacting to light. EOMI. No scleral icterus. No conjunctival pallor. Normocephalic, atraumatic. No pharyngeal erythema. No thyromegaly. CARDIOVASCULAR: S1 and S2 present. No murmurs, rubs, or gallops. PULMONARY: Chest is clear to auscultation, no wheezing or crackles. ABDOMEN: Soft, nontender, nondistended, normoactive bowel sounds. No palpable organomegaly. MUSCULOSKELETAL: No joint swelling or deformity. EXTREMITIES: No cyanosis, clubbing, or pedal edema. NEUROLOGICAL: Gross neurological examination did not reveal any focal deficits. SKIN: No rashes. Assessment and Plan Assessment Acute hypoxic respiratory failure from COPD and left lower lobe pneumonia requir ing bipap/hi flow cannula Left lower lobe pneumonia with sepsis present on admission Septic shock requiring vasopressor support currently maintaining blood pressures off pressor support Recent diagnosis metastatic adenocarcinoma of right lung Brain metastasis post craniotomy History of seizure activity Acute on chronic anemia with hgb 8.0 status post 3 units packed red blood cells Elevated D-Dimer, CTA negative for pulmonary embolism Troponin elevation, possible troponin leak from sepsis Lactic acidosis Recent left humerus fracture with no surgical repair has been using sling History of COPD History gastroesophageal reflux disease History of vocal cord paralysis Hypertension history currently normotensive Anemia of chronic disease History of chronic alcohol use Chronic tobacco use GI prophylaxis: Pepcid DVT prophyalxis: Lovenox No Code Plan Patient is being monitored closely in intensive care unit Continue with oxygen support hi flow cannula being weaned as tolerated Continues off pressor support Continue on empiric antibiotic coverage Cultures are pending Continue IV steroids, bronchodilators Reports are being obtained regarding craniotomy Continue on IV fluids Recheck potassium and replace per protocol The impression and plan of care has been dictated by Amarilis James, Nurse Practitioner as directed. Dr. Major MD I have performed a history and physical examination and medical decision making of this patient, discussed the same with the dictator, and agree with the dictators assessment and plan as written, documented as a scribe. Based on total visit time, I have performed more than 50% of this visit. Objective - Vital Signs Vital signs: Vital Signs Temp 98.0 F 03/08/22 14:00 Pulse 86 03/08/22 16:00 Resp 25 H 03/08/22 16:00 BP 125/72 03/08/22 16:00 Pulse Ox 94 L 03/08/22 16:00 FiO2 100 03/08/22 07:42 Intake & Output 03/07/22 03/08/22 03/08/22 18:59 06:59 18:59 Intake Total 3000.284 1950 1375 Output Total 1090 835 635 Balance 7935.704 4236 740 Weight 62.1 kg Intake: IV 2300 1950 1375 Azithromycin 500 mg In 250 250 Sodium Chloride 0.9% 250 ml @ 250 mls/hr IVPB DAILY [facility] Rx#:[id number] Cefepime 2 gm In Sodium 200 125 Chloride 0.9% 100 ml @ 25 mls/hr IVPB Q8HR [facility] Rx# :[id number] Dextrose 5% in Water 1, 500 000 ml @ 100 mls/hr IV . Q40P82H [facility] with Sodium Bicarb (1 Meq/ml) 150 ml Rx#:[id number] Levofloxacin 750Mg-D5w 150 Pmx 750 mg In Dextrose/ Water 1 150ml.bag @ 100 mls/hr IVPB Q24H [facility] Rx#: [id number] Potassium Chloride 20 meq 200 In Water For Injection 1 100ml.bag @ 50 mls/hr IVPB Q2H [facility] Rx#: [id number] Sodium Chloride 0.9% 1, 1600 1950 150 000 ml @ 100 mls/hr IV . Q10H [facility] Rx#:[id number] Vancomycin 1,250 mg In 250 Sodium Chloride 0.9% 250 ml @ 125 mls/hr IVPB Q12H [facility] Rx#:[id number] Intake, IV Titration 80.284 Amount Norepinephrine 4 mg In 80.284 Sodium Chloride 0.9% 250 ml @ 0.03 MCG/KG/MIN 7. 258 mls/hr IV .Q24H [facility] Rx#:[id number] Blood Product 620 Rc As-1 Unit 310 [id number] Rc Cpda-1 Unit 310 [id number] Output: Urine 1090 835 635 Other: Voiding Method Indwelling Catheter Indwelling Catheter Indwelling Catheter - Labs CBC & Chem 7: 03/08/22 06:56 03/08/22 06:56 Labs: Abnormal Lab Results - Last 24 Hours (Table) 03/06/22 03/07/22 03/07/22 Range/Units 15:53 08:15 18:35 RBC (4.30-5.90) m/uL Hgb (13.0-17.5) gm/dL Hct (39.0-53.0) % MCHC (31.0-37.0) g/dL Lymphocytes # (1.0-4.8) k/uL Potassium (3.5-5.1) mmol/L Chloride (98-107) mmol/L Carbon Dioxide (22-30) mmol/L Creatinine (0.66-1.25) mg/dL Glucose (74-99) mg/dL POC Glucose (mg/dL) 146 H (70-110) mg/dL Calcium (8.4-10.2) mg/dL Procalcitonin 14.70 H (0.02-0.09) ng/mL Crossmatch See Detail 03/07/22 03/07/22 03/08/22 Range/Units 21:59 23:48 06:04 RBC 2.97 L (4.30-5.90) m/uL Hgb 8.2 L D (13.0-17.5) gm/dL Hct 26.2 L (39.0-53.0) % MCHC (31.0-37.0) g/dL Lymphocytes # (1.0-4.8) k/uL Potassium (3.5-5.1) mmol/L Chloride (98-107) mmol/L Carbon Dioxide (22-30) mmol/L Creatinine (0.66-1.25) mg/dL Glucose (74-99) mg/dL POC Glucose (mg/dL) 132 H 143 H (70-110) mg/dL Calcium (8.4-10.2) mg/dL Procalcitonin (0.02-0.09) ng/mL Crossmatch 03/08/22 03/08/22 03/08/22 Range/Units 06:56 06:56 11:38 RBC 3.04 L (4.30-5.90) m/uL Hgb 8.0 L (13.0-17.5) gm/dL Hct 26.2 L (39.0-53.0) % MCHC 30.7 L (31.0-37.0) g/dL Lymphocytes # 0.5 L (1.0-4.8) k/uL Potassium 3.2 L (3.5-5.1) mmol/L Chloride 123 H (98-107) mmol/L Carbon Dioxide 13 L (22-30) mmol/L Creatinine 0.64 L (0.66-1.25) mg/dL Glucose 120 H (74-99) mg/dL POC Glucose (mg/dL) 148 H (70-110) mg/dL Calcium 7.7 L (8.4-10.2) mg/dL Procalcitonin (0.02-0.09) ng/mL Crossmatch Microbiology - Last 24 Hours (Table) 03/06/22 15:53 Blood Culture - Preliminary Blood No Growth after 24 hours 03/06/22 15:53 Blood Culture - Preliminary Blood No Growth after 24 hours Assessment and Plan Time with Patient: Less than 30
[2022-03-08] MEDS ORDERED: VANCOMYCIN TROUGH DUE 1 EACH MISC MISCELLANE ONE (17:00)
[2022-03-08 17:32] LABS: Glucose,Whole Blood 105 mg/dL (70-110)
[2022-03-08] MEDS: POTASSIUM CHLORIDE 10 MEQ in WATER FOR INJECTION 1 100ML.BAG IVPB SCH ×2 (17:59→19:13)
[2022-03-09] MEDS: methylPREDNISolone SOD SUCCI 125 MG/2 ML VIAL IV SCH ×2 (00:45→06:52)
[2022-03-09] MEDS: CEFEPIME 2 GM in SODIUM CHLORIDE 0.9% 100 ML IVPB SCH ×4 (00:50→23:57)
[2022-03-09 05:01] LABS: Glucose,Whole Blood 166 mg/dL (70-110)
[2022-03-09 06:10] LABS: Glucose,Whole Blood 161 mg/dL (70-110)
--- NOTE | 2022-03-09 07:40 | XR ---
EXAMINATION TYPE: XR chest 1V portable DATE OF EXAM: 03/09/2022 COMPARISON: 03/07/2022 INDICATION: Left lower lobe pneumonia TECHNIQUE: Single frontal view of the chest is obtained. FINDINGS: The heart size is normal. The pulmonary vasculature is prominent. This has increased over the interval. Mild bibasilar infiltrates are present. There is a large mass in the right upper lung field present previously. Couple of nodular densities i n the medial left lung base as well. Left humeral neck fracture again evident. IMPRESSION: 1. Bilateral lung nodules. 2. Increasing lung infiltrates. Correlate for atypical pulmonary edema.
[2022-03-09] MEDS: DEXTROSE 5% IN WATER 1,000 ML with SODIUM BICARB (1 MEQ/ML) 150 ML IV SCH ×3 (08:11→21:05)
[2022-03-09] MEDS: ENOXAPARIN 40 MG/0.4 ML SYRINGE SQ SCH (08:11)
[2022-03-09] MEDS: levETIRAcetam 500 MG TAB PO SCH ×2 (08:11→20:02)
[2022-03-09] MEDS: FAMOTIDINE 20 MG/2 ML VIAL IV SCH ×2 (08:11→20:02)
[2022-03-09 08:18] LABS: African American GFR (CKD) >90 (>60 ml/min/1.73 sqM); Anion Gap 7 mmol/L; Blood Urea Nitrogen 24 mg/dL (9-20); Carbon Dioxide 19 mmol/L (22-30); Chloride 117 mmol/L (98-107); Glucose 142 mg/dL (74-99); Non-African American GFR(CKD) >90 (>60 ml/min/1.73 sqM); Potassium 3.3 mmol/L (3.5-5.1); Sodium 143 mmol/L (137-145)
[2022-03-09] MEDS ORDERED: POTASSIUM CHLORIDE 20 MEQ in WATER FOR INJECTION 1 100ML.BAG IVPB STA (08:27)
[2022-03-09 08:34] LABS: Anisocytosis Slight; HGB 8.1 gm/dL (13.0-17.5); Hypochromasia Marked; MCH 26.4 pg (25.0-35.0); MCHC 32.2 g/dL (31.0-37.0); MCV 81.8 fL (80.0-100.0); Mean Platelet Volume 8.6; Platelet Count 190 k/uL (150-450); Poikilocytosis Marked; RBC 3.06 m/uL (4.30-5.90); RDW 16.2 % (11.5-15.5)
[2022-03-09 10:37] LABS: Lymphocytes # (M) 0.51 k/uL (1.0-4.8); Monocytes # (M) 0.41 k/uL (0-1.0); Neutrophils # (M) 4.23 k/uL (1.3-7.7); Neutrophils % (M) 83 %; Nucleated Red Blood Cells 1 /100 WBC (0-0); Total Cells Counted 200; WBC 5.1 k/uL (3.8-10.6)
[2022-03-09 10:39] LABS: Mixed Population RBC Present; Polychromasia Present
--- NOTE | 2022-03-09 10:49 | P.PN ---
Subjective Progress Note Date: 03/09/22 67-year-old male patient with metastatic adenocarcinoma of the lung, recent diagnosis was made by bronchoscopy and biopsy of a right lung mass. 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 The patient has undergone previous craniotomy. The exact timing and the details of the craniotomy is not known. The patient came into the emergency department with worsening shortness of breath and increased anxiety. He stated that he was unable to breathe. He was having increased tachypnea and the patient was also hypoxic. Immediately, the patient was placed initially on 100% nonrebreather facemask of alignment of the patient was transitioned to a BiPAP mask. CAT scan of the brain was done and it showed a craniotomy flap over the right parietal area. The same time, there was some postsurgical changes and a 1.4 cm lesion along the right parietal lobe site that was previously 2.0 cm in size. There was another 1.3 cm right paramedian lesion causing some mass effect on the lateral ventricle on the right. Also, CAT scan of the chest was not any children of this of any pulmonary embolism. There was extensive consolidation of the left lower lobe. There was also a large right lung mass measuring approximately 4.7 x 3.7 cm inside that had grown in addition to other satellite lesions in the right upper lobe measuring 1.2 cm and in the minor fissure on the right. The patient was brought into the intensive care unit. Overnight, he struggled breathing and agitation. He was initially placed on Precedex. He became hypotensive. Subsequently Precedex was discontinued and the patient was placed on Haldol and later on given Ativan 2 mg along with morphine 2 mg. This morning, he is awake. He is on 2 point restraints. His hemoglobin was at 6.2 and he was given units of packed RBC. His lactic acid level initially was around 13.6 and dropped TO 3.4 patient was given IV fluids in the form of normal saline at the rate of 100 mL an hour. His lactic acid level dropped. His echoes at 3.6. He remains on BiPAP at a pressure of 14/6 cm a fourth heart sound. There is tachypneic. He was covered with broad- spectrum antibiotics including a combination of cefepime, Zithromax and vancom ycin. Guillen catheter is in place. He is quite cachectic and emaciated. He is not lost. He has had previous admissions. The patient has severe COPD. He has also history of a paralyzed vocal cords. Is a chronic smoker. Other morbid conditions include hypertension, weakness with episodes of fall and the patient has sustained a left humeral fracture, for which he was offered a sling. The patient is also hypotensive at this point in time. He became hypotensive in the ICU. He was given IV fluids and the patient is also on norepinephrine infusion On today's evaluation of 03/08/2022, the patient is much more comfortable. Overnight, he did have some agitation and restlessness, he was given Ativan and Haldol and currently is much more comfortable. His pulse ox is 95% and I'll leave the FiO2 down to 4 L. Is currently off the BiPAP. He is on a combination of antibiotics including cefepime, Zithromax and vancomycin. Repeat chest x-ray shows a right upper lobe mass. No significant consolidation of the left lower lobe. The patient's echoes at 5.5 with a hemoglobin of 8. Electrolytes are all stable. The serum bicarb is at 13 and is consistent with melena negative metabolic acidosis and potassium levels at 3.2 that needs to be replaced. BUN is at 19 with a creatinine of 0.6. The patient is receiving IV fluids in the form of 0.9 at the rate of 1 50 mL an hour. There was a troponin leak. Pro-calcitonin with a 14.7. UA was abnormal. Over 19 testing was negative. Cultures are negative including the blood culture the urine culture still pending for now. No fever. Hemodynamically stable. No seizure activity has been noted. Remains on bronchodilators and steroids. He received packed RBC total of 3 units and hemoglobin is stable for now. Has a triple-lumen catheter in his right femoral vein. 03/09/2022, the patient is awake and alert and communicating. No significant respiratory distress. He remains on oxygen which is currently on room air oxygen. He has a congested cough. No significant sputum production. No chest pain. No altered mentation. It was covered with broad-spectrum antibiotics due to a concern of a left lower lobe pneumonia. I discontinued the vancomycin yesterday. The patient remains on a combination of cefepime and Levaquin for now. No seizure activity. Remains on bronchodilators. Remains on IV Solu- Medrol. Blood work from today shows a white cell count of 5.1 with a hemoglobin of 8.1, sodium is 143, serum bicarb is at 19 with a BUN of 24 and a creatinine of 0.7. IV fluids there is a former bicarb infusion rate of 100 mL an hour and his bicarb deficit is being corrected. As noted, his serum bicarb is up to 19. He has no other specific complaints. He has a severe total of 3 units of packed RBC and hemoglobin is currently at 8.1. Objective - Vital Signs Vital signs: Vital Signs Temp 97.6 F 03/09/22 02:00 Pulse 65 03/09/22 05:00 Resp 19 03/09/22 05:00 BP 132/72 03/09/22 05:00 Pulse Ox 93 L 03/09/22 08:07 FiO2 100 03/08/22 07:42 Intake & Output 03/08/22 03/09/22 03/09/22 18:59 06:59 18:59 Intake Total 1825 1365 230 Output Total 740 710 110 Balance 1085 655 120 Weight 66.5 kg Intake: IV 1825 1365 230 Azithromycin 500 mg In 250 Sodium Chloride 0.9% 250 ml @ 250 mls/hr IVPB DAILY [facility] Rx#:[id number] Cefepime 2 gm In Sodium 175 100 Chloride 0.9% 100 ml @ 25 mls/hr IVPB Q8HR [facility] Rx# :[id number] Dextrose 5% in Water 1, 800 1100 200 000 ml @ 100 mls/hr IV . [id number] [facility] with Sodium Bicarb (1 Meq/ml) 150 ml Rx#:[id number] KVO 165 30 Levofloxacin 750Mg-D5w 150 Pmx 750 mg In Dextrose/ Water 1 150ml.bag @ 100 mls/hr IVPB Q24H [facility] Rx#: [id number] Potassium Chloride 10 meq 100 In Water For Injection 1 100ml.bag @ 100 mls/hr IVPB Q1H [facility] Rx#: [id number] Potassium Chloride 20 meq 200 In Water For Injection 1 100ml.bag @ 50 mls/hr IVPB Q2H [facility] Rx#: [id number] Sodium Chloride 0.9% 1, 150 000 ml @ 100 mls/hr IV . Q10H [facility] Rx#:[id number] Output: Urine 740 710 110 Other: Voiding Method Indwelling Catheter Indwelling Catheter Indwelling Catheter # Bowel Movements 0 - Exam GENERAL EXAM: Alert, pleasant 67-year-old male patient, appears older than stated age, the patient resting comfortably. No agitation. No restlessness. No tachypnea. Oxygen has been on RA HEAD: Normocephalic. EYES: Normal reaction of pupils, equal size. NOSE: Clear with pink turbinates. THROAT: No erythema or exudates. NECK: No masses, no JVD. CHEST: No chest wall deformity. LUNGS: Equal air entry with bilateral scattered rhonchi. Diminished breath on the left lung base and there is scattered expiratory wheezes of the lung regalado bilaterally. CVS: S1 and S2 normal with no audible murmur, regular rhythm. ABDOMEN: No hepatosplenomegaly, normal bowel sounds, no guarding or rigidity. SPINE: No scoliosis or deformity SKIN: No rashes CENTRAL NERVOUS SYSTEM: No focal deficits, tone is normal in all 4 extremities. EXTREMITIES: Left upper extremity in a sling. There is no peripheral edema. No clubbing, no cyanosis. Peripheral pulses are intact. - Labs CBC & Chem 7: 03/09/22 07:20 03/09/22 07:20 Labs: Abnormal Lab Results - Last 24 Hours (Table) 03/08/22 03/09/22 03/09/22 Range/Units 11:38 00:01 06:08 RBC (4.30-5.90) m/uL Hgb (13.0-17.5) gm/dL Hct (39.0-53.0) % RDW (11.5-15.5) % Lymphocytes # (Manual) (1.0-4.8) k/uL Nucleated RBCs (0-0) /100 WBC Potassium (3.5-5.1) mmol/L Chloride (98-107) mmol/L Carbon Dioxide (22-30) mmol/L BUN (9-20) mg/dL Glucose (74-99) mg/dL POC Glucose (mg/dL) 148 H 166 H 161 H (70-110) mg/dL Calcium (8.4-10.2) mg/dL 03/09/22 03/09/22 Range/Units 07:20 07:20 RBC 3.06 L (4.30-5.90) m/uL Hgb 8.1 L (13.0-17.5) gm/dL Hct 25.0 L (39.0-53.0) % RDW 16.2 H (11.5-15.5) % Lymphocytes # (Manual) 0.51 L (1.0-4.8) k/uL Nucleated RBCs 1 H (0-0) /100 WBC Potassium 3.3 L (3.5-5.1) mmol/L Chloride 117 H (98-107) mmol/L Carbon Dioxide 19 L (22-30) mmol/L BUN 24 H (9-20) mg/dL Glucose 142 H (74-99) mg/dL POC Glucose (mg/dL) (70-110) mg/dL Calcium 8.0 L (8.4-10.2) mg/dL Microbiology - Last 24 Hours (Table) 03/06/22 15:53 Blood Culture - Preliminary Blood No Growth after 48 hours 03/06/22 15:53 Blood Culture - Preliminary Blood No Growth after 48 hours 03/06/22 Unknown Urine Culture - Preliminary Urine,Voided Gram Neg Bacilli Assessment and Plan Plan: Metastatic adenocarcinoma of the right lung. 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 Seizure activity, recent back in January 2022 related to MANUFACTURING AUTOMATION ENGINEER metastases and a CAT scan Valerio showed vasogenic edema and effacement of the right lateral ventricle from MANUFACTURING AUTOMATION ENGINEER metastases. There was an intracranial mass involving the right posterior frontal lobe with surrounding vasogenic edema and it was also effacement of the right lateral ventricle and there is postcraniotomy. Currently the patient is free of any seizures Acute hypoxic respiratory failure secondary to COPD and extensive left lower lobe pneumonia, currently on BiPAP. The patient carries a DNR/DNI CODE STATUS. Over the past 24 hours, the patient was taken off the BiPAP and the patient is currently on RA Non-anion gap metabolic acidosis, the bicarb deficit is being adjusted by a bicarb infusion Elevated cholecalciferol level, could be related to pneumonia/UTI rule out underlying UTI, growing gram-negative bacillus in the urine Severe 02 dependent COPD Acute lactic acidosis, improving with fluid resuscitation Acute hypotension, likely secondary to left lower lobe pneumonia/sepsis., The patient remains off pressors COVID 19 infection ( september 2021) vaccinated with Moderna x1 in the past, recovered Acute on Chronic anemia and history of chronic gastritis, history of colonic polyps. The hemoglobin was at 6.3 and the patient was given units of packed RBC History of vocal cord paralysis Benign essential hypertension Tobacco dependence syndrome History of underlying COPD presently inactive History of alcoholism Chronic anorexia and weight loss. Left humerus fracture Plan Discontinue BiPAP Weaned down to room air oxygen Provide the patient incentive spirometer Continue to replace the bicarb deficit by a bicarbonate infusion at the rate of 100 mL an hour Stop the IV Solu Medrol and start the patient prednisone was tapered Continue cefepime and Levaquin We'll monitor the pro calcitonin level A total of 3 units of packed RBC has been given, hemoglobin is stable for now No agitation and the patient is currently off Precedex The patient is doing okay with some soft diet. We'll also advance his diet as tolerated. His taken neck is thick material at this point in time. Continue Keppra Patient is having a regular diet Lovenox 40 mg subcu portably prophylaxis Discuss family his prognosis which is essentially poor Critical care evaluation more than 30 minutes arrival to get his food okay Extremely poor prognosis based on the above. DNR/DNI CODE STATUS. Transfer to a medical floor
[2022-03-09] MEDS: POTASSIUM CHLORIDE 20 MEQ in WATER FOR INJECTION 1 100ML.BAG IVPB SCH ×2 (10:59→11:00)
[2022-03-09] MEDS: LEVOFLOXACIN 750MG-D5W PMX 750 MG in DEXTROSE/WATER 1 150ML.BAG IVPB SCH (11:00)
[2022-03-09 11:39] LABS: Glucose,Whole Blood 117 mg/dL (70-110)
[2022-03-09] MEDS ORDERED: POTASSIUM CHLORIDE ER 20 MEQ TAB.ER PO STA (13:53)
[2022-03-09 18:07] LABS: Glucose,Whole Blood 149 mg/dL (70-110)
--- NOTE | 2022-03-09 20:30 | P.PN ---
Subjective This is a 67 year old male with recent diagnosis of metastatic adenocarcinoma of right lung, status post craniotomy, hypertension, gastroesophageal reflux disease, COPD, paralyzed vocal chords, chronic nicotine use, chronic alcohol use, recent left humerous fracture with no surgical intervention has been using immobility sling to left arm. [facility] of breath and hypoxia. He has [facility] at [facility] for sub acute rehab since last admission. He is a poor history and is significantly short of breath when talking. He was initially placed on non rebreather in the EC and transitioned to BiPAP, he is currently on hi flow cannula. He was found to have hemoglobin of 6.2 and is currently receiving 2 units of packed red blood cells. Patient had brain CT completed on admission showing interval right parietal craniotomy flap with CSF density sliver of extra-axial fluid underlying the craniotomy flap measuring 5 mm thick, with a 1.4 cm area of focal hypodensity within the right parietal lobe at the site of previous 2.0 cm parenchymal lesion. Possible posttreatment change. Similar 1.3 cm mid right paramedian parenchymal lesion continues to have some mass effect at the roof of the right lateral ventricle. Prominent white matter hypodensity continues throughout the right frontal and parietal lobes. There is no acute intracranial hemorrage. Patient had D-Dimer of 3.[address] angiography was done showing consolidation and volume loss entire left lower lobe, pneumonia versus mucous impaction. There is right upper lobe mass enlarged from previous imaging, there is also adjacent smaller right upper lobe mass and a third spiculated lesion along the minor fissure is relatively similar at 2.4 cm. Possible esophagitis. Patient presents with white count 12.9, hgb 6.3. Lactic acidosis at 13.6. He does have troponin elevation. Urine showing trace protein, trace blood, large le ukocyte esterase. Urine culture pending. Patient is admitted to intensive care unit and started on empiric antibiotic coverage with IV azithromycin, IV cefepime, IV vancomycin. He required precedex overnight for some acute agitation and dyspnea which is currently discontinued. He has haldol as needed for acute aggitation currently. He is also requiring levophed for an initial blood pressure in the 70s systolic and currently attempting to wean. His blood pressure currently is 101/62. Patient has been weaned off BiPAP and is currently on 13 L High Flow cannula with oxygen saturation of 100%. He did have a temperature of 101.1 during the evening. Patient is being hydrated with normal saline. Follow up chest xray this morning showing COPD with known lung mass. Lactic acid has improved with fluid resuscitation, has received 2L fluid bolus. 03/08/2022 Patient is evaluated in follow up in the intensive care unit, currently has sitter at the bedside. Has been less agitated. He is alert x2 today, and more awake. He is less short of breath, able to carry on a conversation. Was able to talk with patients daughter mya this morning who is the DPOA. Per Mya patient had seizure like activity at [facility] and from there was brought to [facility] and was found to have brain lesion and underwent craniotomy this was done about 2 to 3 weeks ago and from hospital was brought back to [facility] to continue with rehab. He was at orthopedics and was significant short of breath and brought to the hospital. This was his initial follow up at since being discharge to [facility] with left humerus fracture. Oxygen has been weaned down to 9 L high flow cannula with oxygen saturation 93% and hopeful he will be able to be further weaned today. he continues to maintain blood pressure 120s systolic off pressor support. Continues on empiric antibiotic coverage with IV cefepime, IV levaquin. Continues on IV solumedrol, started on bicarb gtt. 03/09/2022 Patient improving slightly and gradually He states his breathing is slightly better for the same, he states he can walk to the bathroom with no exertional dyspnea but patient was some tachypnea when talking. Positive cough with no phlegm. No chest pain. No headache or neurological symptoms. No more seizure-like activity Patient remains on IV Levaquin and cefepime Probasco stoning elevated 14.7 CT of the brain showing right partial craniectomy with right parenchymal 1.4 and 1.3 densities suspicious for metastatic disease. Patient is currently DO NOT RESUSCITATE Remains also on steroids prednisone 40 mg and sodium bicarb and Keppra Plan Patient is being monitored closely in intensive care unit Continue with oxygen support hi flow cannula being weaned as tolerated Continues off pressor support Continue on empiric antibiotic coverage Cultures are pending Continue IV steroids, bronchodilators Reports are being obtained regarding craniotomy Continue on IV fluids Recheck potassium and replace per protocol Objective - Vital Signs Vital signs: Vital Signs Temp 98 F 03/09/22 12:00 Pulse 81 03/09/22 12:00 Resp 23 03/09/22 12:00 BP 154/87 03/09/22 12:00 Pulse Ox 96 03/09/22 12:00 FiO2 100 03/08/22 07:42 Intake & Output 03/08/22 03/09/22 03/09/22 18:59 06:59 18:59 Intake Total 1825 1365 230 Output Total 740 710 110 Balance 1085 655 120 Weight 66.5 kg Intake: IV 1825 1365 230 Azithromycin 500 mg In 250 Sodium Chloride 0.9% 250 ml @ 250 mls/hr IVPB DAILY [facility] Rx#:[id number] Cefepime 2 gm In Sodium 175 100 Chloride 0.9% 100 ml @ 25 mls/hr IVPB Q8HR [facility] Rx# :[id number] Dextrose 5% in Water 1, 800 1100 200 000 ml @ 100 mls/hr IV . [id number] HARRIS with Sodium Bicarb (1 Meq/ml) 150 ml Rx#:[id number] KVO 165 30 Levofloxacin 750Mg-D5w 150 Pmx 750 mg In Dextrose/ Water 1 150ml.bag @ 100 mls/hr IVPB Q24H [facility] Rx#: [id number] Potassium Chloride 10 meq 100 In Water For Injection 1 100ml.bag @ 100 mls/hr IVPB Q1H [facility] Rx#: [id number] Potassium Chloride 20 meq 200 In Water For Injection 1 100ml.bag @ 50 mls/hr IVPB Q2H [facility] Rx#: [id number] Sodium Chloride 0.9% 1, 150 000 ml @ 100 mls/hr IV . Q10H [facility] Rx#:[id number] Output: Urine 740 710 110 Other: Voiding Method Indwelling Catheter Indwelling Catheter Indwelling Catheter # Bowel Movements 0 - Exam -GENERAL: The patient is alert and oriented x3, not in any acute distress. Well developed, well nourished. Patient is weak and lethargic HEENT: Pupils are round and equally reacting to light. EOMI. No scleral icterus. No conjunctival pallor. Normocephalic, atraumatic. No pharyngeal erythema. No thyromegaly. CARDIOVASCULAR: S1 and S2 present. No murmurs, rubs, or gallops. -PULMONARY: Chest is clear to auscultation, no wheezing . Tachypnea with bilateral crepitation ABDOMEN: Soft, nontender, nondistended, normoactive bowel sounds. No palpable organomegaly. MUSCULOSKELETAL: No joint swelling or deformity. EXTREMITIES: No cyanosis, clubbing, or pedal edema. NEUROLOGICAL: Gross neurological examination did not reveal any focal deficits. SKIN: No rashes. no petechiae. - Labs CBC & Chem 7: 03/09/22 07:20 03/09/22 12:52 Labs: Abnormal Lab Results - Last 24 Hours (Table) 03/09/22 03/09/22 03/09/22 Range/Units 00:01 06:08 07:20 RBC 3.06 L (4.30-5.90) m/uL Hgb 8.1 L (13.0-17.5) gm/dL Hct 25.0 L (39.0-53.0) % RDW 16.2 H (11.5-15.5) % Lymphocytes # (Manual) 0.51 L (1.0-4.8) k/uL Nucleated RBCs 1 H (0-0) /100 WBC Potassium (3.5-5.1) mmol/L Chloride (98-107) mmol/L Carbon Dioxide (22-30) mmol/L BUN (9-20) mg/dL Glucose (74-99) mg/dL POC Glucose (mg/dL) 166 H 161 H (70-110) mg/dL Calcium (8.4-10.2) mg/dL 03/09/22 03/09/22 Range/Units 07:20 11:36 RBC (4.30-5.90) m/uL Hgb (13.0-17.5) gm/dL Hct (39.0-53.0) % RDW (11.5-15.5) % Lymphocytes # (Manual) (1.0-4.8) k/uL Nucleated RBCs (0-0) /100 WBC Potassium 3.3 L (3.5-5.1) mmol/L Chloride 117 H (98-107) mmol/L Carbon Dioxide 19 L (22-30) mmol/L BUN 24 H (9-20) mg/dL Glucose 142 H (74-99) mg/dL POC Glucose (mg/dL) 117 H (70-110) mg/dL Calcium 8.0 L (8.4-10.2) mg/dL Microbiology - Last 24 Hours (Table) 03/06/22 15:53 Blood Culture - Preliminary Blood No Growth after 48 hours 03/06/22 15:53 Blood Culture - Preliminary Blood No Growth after 48 hours 03/06/22 Unknown Urine Culture - Preliminary Urine,Voided Gram Neg Bacilli Assessment and Plan Assessment: Acute hypoxic respiratory failure from COPD and left lower lobe pneumonia requiring bipap/hi flow cannula Left lower lobe pneumonia with sepsis present on admission Septic shock requiring vasopressor support currently maintaining blood pressures off pressor support Recent diagnosis metastatic adenocarcinoma of right lung Brain metastasis post craniotomy History of seizure activity Acute on chronic anemia with hgb 8.0 status post 3 units packed red blood cells Elevated D-Dimer, CTA negative for pulmonary embolism Troponin elevation, possible troponin leak from sepsis Lactic acidosis Recent left humerus fracture with no surgical repair has been using sling History of COPD History gastroesophageal reflux disease History of vocal cord paralysis Hypertension history currently normotensive Anemia of chronic disease History of chronic alcohol use Chronic tobacco use GI prophylaxis: Pepcid DVT prophyalxis: Lovenox No Code Plan: Continue with prednisone 40 mg Continue with Levaquin and cefepime Continue with Keppra DVT prophylaxis: Lovenox GI prophylaxis Pepcid
[2022-03-10 01:14] LABS: Glucose,Whole Blood 141 mg/dL (70-110)
[2022-03-10 01:44] LABS: Glucose,Whole Blood 173 mg/dL (70-110)
[2022-03-10 06:25] LABS: Glucose,Whole Blood 164 mg/dL (70-110)
[2022-03-10 07:07] LABS: African American GFR (CKD) >90 (>60 ml/min/1.73 sqM); Anion Gap 6 mmol/L; Blood Urea Nitrogen 22 mg/dL (9-20); Carbon Dioxide 23 mmol/L (22-30); Chloride 110 mmol/L (98-107); Glucose 128 mg/dL (74-99); Non-African American GFR(CKD) >90 (>60 ml/min/1.73 sqM); Potassium 3.6 mmol/L (3.5-5.1); Sodium 139 mmol/L (137-145)
[2022-03-10] MEDS: CEFEPIME 2 GM in SODIUM CHLORIDE 0.9% 100 ML IVPB SCH ×3 (08:52→23:26)
[2022-03-10] MEDS: ENOXAPARIN 40 MG/0.4 ML SYRINGE SQ SCH (08:52)
[2022-03-10] MEDS: FAMOTIDINE 20 MG/2 ML VIAL IV SCH ×2 (08:53→20:36)
[2022-03-10] MEDS: levETIRAcetam 500 MG TAB PO SCH ×2 (08:53→20:36)
[2022-03-10] MEDS: predniSONE 20 MG TAB PO SCH (08:53)
[2022-03-10 08:54] LABS: Basophils # (A) 0 X 10*3/uL (0.00-0.10); Basophils % (A) 0 %; Eosinophils # (A) 0 X 10*3/uL (0.04-0.35); Eosinophils % (A) 0 %; HCT 22.4 % (39.6-50.0); HGB 7.2 g/dL (13.0-17.0); Immature Grans, Automated 1.4 %; MCH 25.4 pg (27.0-32.0); MCHC 32.1 g/dL (32.0-37.0); MCV 78.9 fL (80.0-97.0); Mean Platelet Volume 9.9 fL (9.5-12.2); Monocytes # (A) 0.48 X 10*3/uL (0.20-1.00); Monocytes % (A) 8.4 %; NRBC Per 100 WBC 2.6 /100 WBCS (0.0-0.0); Neutrophils # (A) 4.35 X 10*3/uL (1.80-7.70); Neutrophils % (A) 76.2 %; Platelet Count 176 X 10*3/uL (140-440); RBC 2.84 X 10*6/uL (4.40-5.60); RDW 17.3 % (11.5-14.5); WBC 5.71 X 10*3/uL (4.50-10.00)
[2022-03-10] MEDS: DEXTROSE 5% IN WATER 1,000 ML with SODIUM BICARB (1 MEQ/ML) 150 ML IV SCH (09:24)
[2022-03-10 12:11] LABS: Glucose,Whole Blood 134 mg/dL (70-110)
[2022-03-10] MEDS: LEVOFLOXACIN 750MG-D5W PMX 750 MG in DEXTROSE/WATER 1 150ML.BAG IVPB SCH (13:10)
--- NOTE | 2022-03-10 13:26 | P.PN ---
Subjective Progress Note Date: 03/10/22 67-year-old male patient with metastatic adenocarcinoma of the lung, recent diagnosis was made by bronchoscopy and biopsy of a right lung mass. 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 The patient has undergone previous craniotomy. The exact timing and the details of the craniotomy is not known. The patient came into the emergency department with worsening shortness of breath and increased anxiety. He stated that he was unable to breathe. He was having increased tachypnea and the patient was also hypoxic. Immediately, the patient was placed initially on 100% nonrebreather facemask of alignment of the patient was transitioned to a BiPAP mask. CAT scan of the brain was done and it showed a craniotomy flap over the right parietal area. The same time, there was some postsurgical changes and a 1.4 cm lesion along the right parietal lobe site that was previously 2.0 cm in size. There was another 1.3 cm right paramedian lesion causing some mass effect on the lateral ventricle on the right. Also, CAT scan of the chest was not any children of this of any pulmonary embolism. There was extensive consolidation of the left lower lobe. There was also a large right lung mass measuring approximately 4.7 x 3.7 cm inside that had grown in addition to other satellite lesions in the right upper lobe measuring 1.2 cm and in the minor fissure on the right. The patient was brought into the intensive care unit. Overnight, he struggled breathing and agitation. He was initially placed on Precedex. He became hypotensive. Subsequently Precedex was discontinued and the patient was placed on Haldol and later on given Ativan 2 mg along with morphine 2 mg. This morning, he is awake. He is on 2 point restraints. His hemoglobin was at 6.2 and he was given units of packed RBC. His lactic acid level initially was around 13.6 and dropped TO 3.4 patient was given IV fluids in the form of normal saline at the rate of 100 mL an hour. His lactic acid level dropped. His echoes at 3.6. He remains on BiPAP at a pressure of 14/6 cm a fourth heart sound. There is tachypneic. He was covered with broad- spectrum antibiotics including a combination of cefepime, Zithromax and vancom ycin. Guillen catheter is in place. He is quite cachectic and emaciated. He is not lost. He has had previous admissions. The patient has severe COPD. He has also history of a paralyzed vocal cords. Is a chronic smoker. Other morbid conditions include hypertension, weakness with episodes of fall and the patient has sustained a left humeral fracture, for which he was offered a sling. The patient is also hypotensive at this point in time. He became hypotensive in the ICU. He was given IV fluids and the patient is also on norepinephrine infusion On today's evaluation of 03/08/2022, the patient is much more comfortable. Overnight, he did have some agitation and restlessness, he was given Ativan and Haldol and currently is much more comfortable. His pulse ox is 95% and I'll leave the FiO2 down to 4 L. Is currently off the BiPAP. He is on a combination of antibiotics including cefepime, Zithromax and vancomycin. Repeat chest x-ray shows a right upper lobe mass. No significant consolidation of the left lower lobe. The patient's echoes at 5.5 with a hemoglobin of 8. Electrolytes are all stable. The serum bicarb is at 13 and is consistent with melena negative metabolic acidosis and potassium levels at 3.2 that needs to be replaced. BUN is at 19 with a creatinine of 0.6. The patient is receiving IV fluids in the form of 0.9 at the rate of 1 50 mL an hour. There was a troponin leak. Pro-calcitonin with a 14.7. UA was abnormal. Over 19 testing was negative. Cultures are negative including the blood culture the urine culture still pending for now. No fever. Hemodynamically stable. No seizure activity has been noted. Remains on bronchodilators and steroids. He received packed RBC total of 3 units and hemoglobin is stable for now. Has a triple-lumen catheter in his right femoral vein. 03/09/2022, the patient is awake and alert and communicating. No significant respiratory distress. He remains on oxygen which is currently on room air oxygen. He has a congested cough. No significant sputum production. No chest pain. No altered mentation. It was covered with broad-spectrum antibiotics due to a concern of a left lower lobe pneumonia. I discontinued the vancomycin yesterday. The patient remains on a combination of cefepime and Levaquin for now. No seizure activity. Remains on bronchodilators. Remains on IV Solu- Medrol. Blood work from today shows a white cell count of 5.1 with a hemoglobin of 8.1, sodium is 143, serum bicarb is at 19 with a BUN of 24 and a creatinine of 0.7. IV fluids there is a former bicarb infusion rate of 100 mL an hour and his bicarb deficit is being corrected. As noted, his serum bicarb is up to 19. He has no other specific complaints. He has a severe total of 3 units of packed RBC and hemoglobin is currently at 8.1. 03/10/2022, the patient is being seen on a medical floor. The patient was transferred also the intensive care unit yesterday. The patient is doing well. No specific complaints. He is on room air oxygen. He is on Levaquin and cefepime as broad-spectrum antibiotic coverage. He is also on prednisone burst taper. He is visiting D5 water with bicarbonate infusion at the rate of 75 mL an hour. His serum bicarb is normalized for now it's up to 23 and the patient's echoes of 5.7 with a hemoglobin of 7.2. He is tolerating his diet. Objective - Vital Signs Vital signs: Vital Signs Temp 97.8 F 03/10/22 08:00 Pulse 71 03/10/22 08:00 Resp 18 03/10/22 08:00 BP 146/82 03/10/22 08:00 Pulse Ox 92 L 03/10/22 08:00 FiO2 100 03/08/22 07:42 Intake & Output 03/09/22 03/10/22 03/10/22 18:59 06:59 18:59 Intake Total 350 118 Output Total 310 300 475 Balance 40 -300 -357 Intake: IV 350 Dextrose 5% in Water 1, 320 000 ml @ 100 mls/hr IV . [id number] HARRIS with Sodium Bicarb (1 Meq/ml) 150 ml Rx#:[id number] KVO 30 Oral 118 Output: Urine 310 300 475 Other: Voiding Method Indwelling Catheter Indwelling Catheter Indwelling Catheter - Exam GENERAL EXAM: Alert, pleasant 67-year-old male patient, appears older than stated age, the patient resting comfortably. No agitation. No restlessness. No tachypnea. Oxygen has been on RA HEAD: Normocephalic. EYES: Normal reaction of pupils, equal size. NOSE: Clear with pink turbinates. THROAT: No erythema or exudates. NECK: No masses, no JVD. CHEST: No chest wall deformity. LUNGS: Equal air entry with bilateral scattered rhonchi. Diminished breath on the left lung base and there is scattered expiratory wheezes of the lung regalado bilaterally. CVS: S1 and S2 normal with no audible murmur, regular rhythm. ABDOMEN: No hepatosplenomegaly, normal bowel sounds, no guarding or rigidity. SPINE: No scoliosis or deformity SKIN: No rashes CENTRAL NERVOUS SYSTEM: No focal deficits, tone is normal in all 4 extremities. EXTREMITIES: Left upper extremity in a sling. There is no peripheral edema. No clubbing, no cyanosis. Peripheral pulses are intact. - Labs CBC & Chem 7: 03/10/22 06:10 03/10/22 06:10 Labs: Abnormal Lab Results - Last 24 Hours (Table) 03/09/22 03/10/22 03/10/22 Range/Units 18:06 01:12 01:42 RBC (4.40-5.60) X 10*6/uL Hgb (13.0-17.0) g/dL Hct (39.6-50.0) % MCV (80.0-97.0) fL MCH (27.0-32.0) pg RDW (11.5-14.5) % Absolute Nucleated RBC (0.00-0.00) X 10*3/uL Immature Gran # (0.00-0.04) X 10*3/uL Lymphocytes # (0.90-5.00) X 10*3/uL Eosinophils # (0.04-0.35) X 10*3/uL NRBC/100 WBC Diff (0.0-0.0) /100 WBCS Chloride (98-107) mmol/L BUN (9-20) mg/dL Glucose (74-99) mg/dL POC Glucose (mg/dL) 149 H 141 H 173 H (70-110) mg/dL Calcium (8.4-10.2) mg/dL 03/10/22 03/10/22 03/10/22 Range/Units 06:05 06:10 06:10 RBC 2.84 L (4.40-5.60) X 10*6/uL Hgb 7.2 L (13.0-17.0) g/dL Hct 22.4 L (39.6-50.0) % MCV 78.9 L (80.0-97.0) fL MCH 25.4 L (27.0-32.0) pg RDW 17.3 H (11.5-14.5) % Absolute Nucleated RBC 0.15 H (0.00-0.00) X 10*3/uL Immature Gran # 0.08 H (0.00-0.04) X 10*3/uL Lymphocytes # 0.80 L (0.90-5.00) X 10*3/uL Eosinophils # 0 L (0.04-0.35) X 10*3/uL NRBC/100 WBC Diff 2.6 H (0.0-0.0) /100 WBCS Chloride 110 H (98-107) mmol/L BUN 22 H (9-20) mg/dL Glucose 128 H (74-99) mg/dL POC Glucose (mg/dL) 164 H (70-110) mg/dL Calcium 8.0 L (8.4-10.2) mg/dL 03/10/22 Range/Units 12:09 RBC (4.40-5.60) X 10*6/uL Hgb (13.0-17.0) g/dL Hct (39.6-50.0) % MCV (80.0-97.0) fL MCH (27.0-32.0) pg RDW (11.5-14.5) % Absolute Nucleated RBC (0.00-0.00) X 10*3/uL Immature Gran # (0.00-0.04) X 10*3/uL Lymphocytes # (0.90-5.00) X 10*3/uL Eosinophils # (0.04-0.35) X 10*3/uL NRBC/100 WBC Diff (0.0-0.0) /100 WBCS Chloride (98-107) mmol/L BUN (9-20) mg/dL Glucose (74-99) mg/dL POC Glucose (mg/dL) 134 H (70-110) mg/dL Calcium (8.4-10.2) mg/dL Microbiology - Last 24 Hours (Table) 03/06/22 15:53 Blood Culture - Preliminary Blood No Growth after 72 hours 03/06/22 15:53 Blood Culture - Preliminary Blood No Growth after 72 hours 03/06/22 Unknown Urine Culture - Final Urine,Voided Escherichia coli Assessment and Plan Plan: Metastatic adenocarcinoma of the right lung. The patient has FIRMWARE DEVELOPER metastasis status post craniotomy. Seizure activity, recent back in January 2022 related to FIRMWARE DEVELOPER metastases and a CAT scan Valerio showed vasogenic edema and effacement of the right lateral ventricle from FIRMWARE DEVELOPER metastases. There was an intracranial mass involving the right posterior frontal lobe with surrounding vasogenic edema and it was also effacement of the right lateral ventricle and there is postcraniotomy. Cu rrently the patient is free of any seizures Acute hypoxic respiratory failure secondary to COPD and extensive left lower lobe pneumonia, currently on BiPAP. The patient carries a DNR/DNI CODE STATUS. Over the past 24 hours, the patient was taken off the BiPAP and the patient is currently on RA Non-anion gap metabolic acidosis, the bicarb deficit is being adjusted by a bicarb infusion, improved Elevated cholecalciferol level, could be related to pneumonia/UTI rule out underlying UTI, growing gram-negative bacillus in the urine Severe 02 dependent COPD Acute lactic acidosis, improving with fluid resuscitation Acute hypotension, likely secondary to left lower lobe pneumonia/sepsis., The patient remains off pressors COVID 19 infection ( september 2021) vaccinated with Moderna x1 in the past, recovered Acute on Chronic anemia and history of chronic gastritis, history of colonic polyps. The hemoglobin was at 6.3 and the patient was given units of packed RBC History of vocal cord paralysis Benign essential hypertension Tobacco dependence syndrome History of underlying COPD presently inactive History of alcoholism Chronic anorexia and weight loss. Left humerus fracture Plan Clinically stable and the patient is currently off BiPAP and off oxygen Discontinue bicarb infusion Advance diet Continue cefepime and Levaquin We'll monitor the pro calcitonin level A total of 3 units of packed RBC has been given, hemoglobin is stable for now No agitation and the patient is currently off Precedex The patient is doing okay with some soft diet. We'll also advance his diet as tolerated. His taken neck is thick material at this point in time. Continue Keppra Patient is having a regular diet Lovenox 40 mg subcu portably prophylaxis Discuss family his prognosis which is essentially poor
[2022-03-10] MEDS: CALCIUM CARBONATE 500 MG CHEWABLE PO PRN (17:00)
[2022-03-10 18:04] LABS: Glucose,Whole Blood 119 mg/dL (70-110)
--- NOTE | 2022-03-10 19:50 | P.PN ---
Subjective This is a 67 year old male with recent diagnosis of metastatic adenocarcinoma of right lung, status post craniotomy, hypertension, gastroesophageal reflux disease, COPD, paralyzed vocal chords, chronic nicotine use, chronic alcohol use, recent left humerous fracture with no surgical intervention has been using immobility sling to left arm. [facility]ness of breath and hypoxia. He has been at [facility] for sub acute rehab since last admission. He is a poor history and is significantly short of breath when talking. He was initially placed on non rebreather in the EC and transitioned to BiPAP, he is currently on hi flow cannula. He was found to have hemoglobin of 6.2 and is currently receiving 2 units of packed red blood cells. Patient had brain CT completed on admission showing interval right parietal craniotomy flap with CSF density sliver of extra-axial fluid underlying the craniotomy flap measuring 5 mm thick, with a 1.4 cm area of focal hypodensity within the right parietal lobe at the site of previous 2.0 cm parenchymal lesion. Possible posttreatment change. Similar 1.3 cm mid right paramedian parenchymal lesion continues to have some mass effect at the roof of the right lateral ventricle. Prominent white matter hypodensity continues throughout the right frontal and parietal lobes. There is no acute intracranial hemorrage. Patient had D-Dimer of 3.[address] angiography was done showing consolidation and volume loss entire left lower lobe, pneumonia versus mucous impaction. There is right upper lobe mass enlarged from previous imaging, there is also adjacent smaller right upper lobe mass and a third spiculated lesion along the minor fissure is relatively similar at 2.4 cm. Possible esophagitis. Patient presents with white count 12.9, hgb 6.3. Lactic acidosis at 13.6. He does have troponin elevation. Urine showing trace protein, trace blood, large le ukocyte esterase. Urine culture pending. Patient is admitted to intensive care unit and started on empiric antibiotic coverage with IV azithromycin, IV cefepime, IV vancomycin. He required precedex overnight for some acute agitation and dyspnea which is currently discontinued. He has haldol as needed for acute aggitation currently. He is also requiring levophed for an initial blood pressure in the 70s systolic and currently attempting to wean. His blood pressure currently is 101/62. Patient has been weaned off BiPAP and is currently on 13 L High Flow cannula with oxygen saturation of 100%. He did have a temperature of 101.1 during the evening. Patient is being hydrated with normal saline. Follow up chest xray this morning showing COPD with known lung mass. Lactic acid has improved with fluid resuscitation, has received 2L fluid bolus. 03/08/2022 Patient is evaluated in follow up in the intensive care unit, currently has sitter at the bedside. Has been less agitated. He is alert x2 today, and more awake. He is less short of breath, able to carry on a conversation. Was able to talk with patients daughter kaylyn this morning who is the DPOA. Per Kaylyn patient had seizure like activity at [facility] and from there was brought to [facility] and was found to have brain lesion and underwent craniotomy this was done about 2 to 3 weeks ago and from hospital was brought back to [facility] to continue with rehab. He was at orthopedics and was significant short of breath and brought to the hospital. This was his initial follow up at since being discharge to [facility] with left humerus fracture. Oxygen has been weaned down to 9 L high flow cannula with oxygen saturation 93% and hopeful he will be able to be further weaned today. he continues to maintain blood pressure 120s systolic off pressor support. Continues on empiric antibiotic coverage with IV cefepime, IV levaquin. Continues on IV solumedrol, started on bicarb gtt. 03/09/2022 Patient improving slightly and gradually He states his breathing is slightly better for the same, he states he can walk to the bathroom with no exertional dyspnea but patient was some tachypnea when talking. Positive cough with no phlegm. No chest pain. No headache or neurological symptoms. No more seizure-like activity Patient remains on IV Levaquin and cefepime Probasco stoning elevated 14.7 CT of the brain showing right partial craniectomy with right parenchymal 1.4 and 1.3 densities suspicious for metastatic disease. Patient is currently DO NOT RESUSCITATE Remains also on steroids prednisone 40 mg and sodium bicarb and Keppra 03/10/2022 Patient lying in bed comfortable with no significant symptoms, is awake and alert and oriented, ex- at bedside N and patient's vision to discuss his health care with her. Patient and are aware of patient diagnosis of lung cancer with metastasis to the brain. She confirmed to me that patient is going to follow up with . also was an outpatient and radiation oncologist and she is going to follow up when he goes to rehab to make sure he will see his doctors upon discharge. Midline and placed remains on Levaquin and cefepime Prednisone 40 mg till 03/12 per audio/visual manager. Continue with Gumaro. Objective - Vital Signs Vital signs: Vital Signs Temp 97.8 F 03/10/22 08:00 Pulse 71 03/10/22 08:00 Resp 18 03/10/22 08:00 BP 146/82 03/10/22 08:00 Pulse Ox 92 L 03/10/22 08:00 FiO2 100 03/08/22 07:42 Intake & Output 03/09/22 03/10/22 03/10/22 18:59 06:59 18:59 Intake Total 350 118 Output Total 310 300 475 Balance 40 300 -357 Intake: IV 350 Dextrose 5% in Water 1, 320 000 ml @ 100 mls/hr IV . [id number] HARRIS with Sodium Bicarb (1 Meq/ml) 150 ml Rx#:[id number] KVO 30 Oral 118 Output: Urine 310 300 475 Other: Voiding Method Indwelling Catheter Indwelling Catheter Indwelling Catheter - Exam -GENERAL: The patient is alert and oriented x3, not in any acute distress. Well developed, well nourished. Patient is weak and lethargic HEENT: Pupils are round and equally reacting to light. EOMI. No scleral icterus. No conjunctival pallor. Normocephalic, atraumatic. No pharyngeal erythema. No thyromegaly. CARDIOVASCULAR: S1 and S2 present. No murmurs, rubs, or gallops. -PULMONARY: Chest is clear to auscultation, no wheezing . Tachypnea with bilateral crepitation ABDOMEN: Soft, nontender, nondistended, normoactive bowel sounds. No palpable organomegaly. MUSCULOSKELETAL: No joint swelling or deformity. EXTREMITIES: No cyanosis, clubbing, or pedal edema. NEUROLOGICAL: Gross neurological examination did not reveal any focal deficits. SKIN: No rashes. no petechiae. - Labs CBC & Chem 7: 03/10/22 06:10 03/10/22 06:10 Labs: Abnormal Lab Results - Last 24 Hours (Table) 03/09/22 03/10/22 03/10/22 Range/Units 18:06 01:12 01:42 RBC (4.40-5.60) X 10*6/uL Hgb (13.0-17.0) g/dL Hct (39.6-50.0) % MCV (80.0-97.0) fL MCH (27.0-32.0) pg RDW (11.5-14.5) % Absolute Nucleated RBC (0.00-0.00) X 10*3/uL Immature Gran # (0.00-0.04) X 10*3/uL Lymphocytes # (0.90-5.00) X 10*3/uL Eosinophils # (0.04-0.35) X 10*3/uL NRBC/100 WBC Diff (0.0-0.0) /100 WBCS Chloride (98-107) mmol/L BUN (9-20) mg/dL Glucose (74-99) mg/dL POC Glucose (mg/dL) 149 H 141 H 173 H (70-110) mg/dL Calcium (8.4-10.2) mg/dL 03/10/22 03/10/22 03/10/22 Range/Units 06:05 06:10 06:10 RBC 2.84 L (4.40-5.60) X 10*6/uL Hgb 7.2 L (13.0-17.0) g/dL Hct 22.4 L (39.6-50.0) % MCV 78.9 L (80.0-97.0) fL MCH 25.4 L (27.0-32.0) pg RDW 17.3 H (11.5-14.5) % Absolute Nucleated RBC 0.15 H (0.00-0.00) X 10*3/uL Immature Gran # 0.08 H (0.00-0.04) X 10*3/uL Lymphocytes # 0.80 L (0.90-5.00) X 10*3/uL Eosinophils # 0 L (0.04-0.35) X 10*3/uL NRBC/100 WBC Diff 2.6 H (0.0-0.0) /100 WBCS Chloride 110 H (98-107) mmol/L BUN 22 H (9-20) mg/dL Glucose 128 H (74-99) mg/dL POC Glucose (mg/dL) 164 H (70-110) mg/dL Calcium 8.0 L (8.4-10.2) mg/dL 03/10/22 Range/Units 12:09 RBC (4.40-5.60) X 10*6/uL Hgb (13.0-17.0) g/dL Hct (39.6-50.0) % MCV (80.0-97.0) fL MCH (27.0-32.0) pg RDW (11.5-14.5) % Absolute Nucleated RBC (0.00-0.00) X 10*3/uL Immature Gran # (0.00-0.04) X 10*3/uL Lymphocytes # (0.90-5.00) X 10*3/uL Eosinophils # (0.04-0.35) X 10*3/uL NRBC/100 WBC Diff (0.0-0.0) /100 WBCS Chloride (98-107) mmol/L BUN (9-20) mg/dL Glucose (74-99) mg/dL POC Glucose (mg/dL) 134 H (70-110) mg/dL Calcium (8.4-10.2) mg/dL Microbiology - Last 24 Hours (Table) 03/06/22 15:53 Blood Culture - Preliminary Blood No Growth after 72 hours 03/06/22 15:53 Blood Culture - Preliminary Blood No Growth after 72 hours 03/06/22 Unknown Urine Culture - Final Urine,Voided Escherichia coli Assessment and Plan Assessment: Acute hypoxic respiratory failure from COPD and left lower lobe pneumonia requir ing bipap/hi flow cannula Left lower lobe pneumonia with sepsis present on admission Septic shock requiring vasopressor support currently maintaining blood pressures off pressor support Recent diagnosis metastatic adenocarcinoma of right lung Brain metastasis post craniotomy History of seizure activity Acute on chronic anemia with hgb 8.0 status post 3 units packed red blood cells Elevated D-Dimer, CTA negative for pulmonary embolism Troponin elevation, possible troponin leak from sepsis Lactic acidosis Recent left humerus fracture with no surgical repair has been using sling History of COPD History gastroesophageal reflux disease History of vocal cord paralysis Hypertension history currently normotensive Anemia of chronic disease History of chronic alcohol use Chronic tobacco use Plan: Patient will need follow-up with Dr. Parker. Patient unconscious upon discharge in 1-2 weeks, this information was relayed to the patient and his ex- Radha at bedside and they are agreeable Continue with prednisone 40 mg Continue with Levaquin and cefepime Continue with Keppra DVT prophylaxis: Lovenox GI prophylaxis Pepcid
[2022-03-11 01:49] LABS: Glucose,Whole Blood 101 mg/dL (70-110)
[2022-03-11 05:47] LABS: Glucose,Whole Blood 89 mg/dL (70-110)
[2022-03-11] MEDS: ENOXAPARIN 40 MG/0.4 ML SYRINGE SQ SCH (08:55)
[2022-03-11] MEDS: predniSONE 20 MG TAB PO SCH (08:56)
[2022-03-11] MEDS: CEFEPIME 2 GM in SODIUM CHLORIDE 0.9% 100 ML IVPB SCH (08:56)
[2022-03-11] MEDS: levETIRAcetam 500 MG TAB PO SCH ×2 (08:56→20:22)
[2022-03-11] MEDS: FAMOTIDINE 20 MG/2 ML VIAL IV SCH ×2 (08:56→20:22)
[2022-03-11 08:57] LABS: Basophils # (A) 0.02 X 10*3/uL (0.00-0.10); Basophils % (A) 0.3 %; Eosinophils # (A) 0.02 X 10*3/uL (0.04-0.35); Eosinophils % (A) 0.3 %; HCT 24.3 % (39.6-50.0); HGB 7.8 g/dL (13.0-17.0); Immature Grans, Automated 3.6 %; Lymphocytes # (A) 1.26 X 10*3/uL (0.90-5.00); Lymphocytes % (A) 16.7 %; MCH 25.8 pg (27.0-32.0); MCHC 32.1 g/dL (32.0-37.0); MCV 80.5 fL (80.0-97.0); Mean Platelet Volume 10.8 fL (9.5-12.2); Monocytes # (A) 0.56 X 10*3/uL (0.20-1.00); Monocytes % (A) 7.4 %; NRBC Per 100 WBC 1.1 /100 WBCS (0.0-0.0); Neutrophils # (A) 5.41 X 10*3/uL (1.80-7.70); Neutrophils % (A) 71.7 %; Platelet Count 199 X 10*3/uL (140-440); RBC 3.02 X 10*6/uL (4.40-5.60); RDW 17.9 % (11.5-14.5); WBC 7.54 X 10*3/uL (4.50-10.00)
[2022-03-11 09:09] LABS: African American GFR (CKD) 120.5 (60.0-200.0); Anion Gap 10.9 mmol/L (10.00-18.00); BUN/Creat Ratio 31.11 Ratio (12.00-20.00); Blood Urea Nitrogen 18.7 mg/dL (9.0-27.0); Calcium 8.3 mg/dL (8.7-10.3); Carbon Dioxide 21.6 mmol/L (20.0-27.5); Potassium 3.5 mmol/L (3.5-5.5)
[2022-03-11 12:13] LABS: Glucose,Whole Blood 95 mg/dL (70-110)
[2022-03-11] MEDS: ERTAPENEM 1 GM in SODIUM CHLORIDE 0.9% 50 ML IVPB SCH (12:34)
[2022-03-11] MEDS: LEVOFLOXACIN 750MG-D5W PMX 750 MG in DEXTROSE/WATER 1 150ML.BAG IVPB SCH (12:40)
--- NOTE | 2022-03-11 12:44 | P.PN ---
Subjective Progress Note Date: 03/11/22 67-year-old male patient with metastatic adenocarcinoma of the lung, recent diagnosis was made by bronchoscopy and biopsy of a right lung mass. 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 The patient has undergone previous craniotomy. The exact timing and the details of the craniotomy is not known. The patient came into the emergency department with worsening shortness of breath and increased anxiety. He stated that he was unable to breathe. He was having increased tachypnea and the patient was also hypoxic. Immediately, the patient was placed initially on 100% nonrebreather facemask of alignment of the patient was transitioned to a BiPAP mask. CAT scan of the brain was done and it showed a craniotomy flap over the right parietal area. The same time, there was some postsurgical changes and a 1.4 cm lesion along the right parietal lobe site that was previously 2.0 cm in size. There was another 1.3 cm right paramedian lesion causing some mass effect on the lateral ventricle on the right. Also, CAT scan of the chest was not any children of this of any pulmonary embolism. There was extensive consolidation of the left lower lobe. There was also a large right lung mass measuring approximately 4.7 x 3.7 cm inside that had grown in addition to other satellite lesions in the right upper lobe measuring 1.2 cm and in the minor fissure on the right. The patient was brought into the intensive care unit. Overnight, he struggled breathing and agitation. He was initially placed on Precedex. He became hypotensive. Subsequently Precedex was discontinued and the patient was placed on Haldol and later on given Ativan 2 mg along with morphine 2 mg. This morning, he is awake. He is on 2 point restraints. His hemoglobin was at 6.2 and he was given units of packed RBC. His lactic acid level initially was around 13.6 and dropped TO 3.4 patient was given IV fluids in the form of normal saline at the rate of 100 mL an hour. His lactic acid level dropped. His echoes at 3.6. He remains on BiPAP at a pressure of 14/6 cm a fourth heart sound. There is tachypneic. He was covered with broad- spectrum antibiotics including a combination of cefepime, Zithromax and vancom ycin. Guillen catheter is in place. He is quite cachectic and emaciated. He is not lost. He has had previous admissions. The patient has severe COPD. He has also history of a paralyzed vocal cords. Is a chronic smoker. Other morbid conditions include hypertension, weakness with episodes of fall and the patient has sustained a left humeral fracture, for which he was offered a sling. The patient is also hypotensive at this point in time. He became hypotensive in the ICU. He was given IV fluids and the patient is also on norepinephrine infusion On today's evaluation of 03/08/2022, the patient is much more comfortable. Overnight, he did have some agitation and restlessness, he was given Ativan and Haldol and currently is much more comfortable. His pulse ox is 95% and I'll leave the FiO2 down to 4 L. Is currently off the BiPAP. He is on a combination of antibiotics including cefepime, Zithromax and vancomycin. Repeat chest x-ray shows a right upper lobe mass. No significant consolidation of the left lower lobe. The patient's echoes at 5.5 with a hemoglobin of 8. Electrolytes are all stable. The serum bicarb is at 13 and is consistent with melena negative metabolic acidosis and potassium levels at 3.2 that needs to be replaced. BUN is at 19 with a creatinine of 0.6. The patient is receiving IV fluids in the form of 0.9 at the rate of 1 50 mL an hour. There was a troponin leak. Pro-calcitonin with a 14.7. UA was abnormal. Over 19 testing was negative. Cultures are negative including the blood culture the urine culture still pending for now. No fever. Hemodynamically stable. No seizure activity has been noted. Remains on bronchodilators and steroids. He received packed RBC total of 3 units and hemoglobin is stable for now. Has a triple-lumen catheter in his right femoral vein. 03/09/2022, the patient is awake and alert and communicating. No significant respiratory distress. He remains on oxygen which is currently on room air oxygen. He has a congested cough. No significant sputum production. No chest pain. No altered mentation. It was covered with broad-spectrum antibiotics due to a concern of a left lower lobe pneumonia. I discontinued the vancomycin yesterday. The patient remains on a combination of cefepime and Levaquin for now. No seizure activity. Remains on bronchodilators. Remains on IV Solu- Medrol. Blood work from today shows a white cell count of 5.1 with a hemoglobin of 8.1, sodium is 143, serum bicarb is at 19 with a BUN of 24 and a creatinine of 0.7. IV fluids there is a former bicarb infusion rate of 100 mL an hour and his bicarb deficit is being corrected. As noted, his serum bicarb is up to 19. He has no other specific complaints. He has a severe total of 3 units of packed RBC and hemoglobin is currently at 8.1. 03/10/2022, the patient is being seen on a medical floor. The patient was transferred also the intensive care unit yesterday. The patient is doing well. No specific complaints. He is on room air oxygen. He is on Levaquin and cefepime as broad-spectrum antibiotic coverage. He is also on prednisone burst taper. He is visiting D5 water with bicarbonate infusion at the rate of 75 mL an hour. His serum bicarb is normalized for now it's up to 23 and the patient's echoes of 5.7 with a hemoglobin of 7.2. He is tolerating his diet. 03/11/2022, the patient is doing well. No specific complaints. He remains on room air oxygen. No chest pain. No shortness of breath. Urine culture was positive for E. coli and this was an ESBL producing organism. Up with the patient on IV Invanz. The blood work shows a white cell count of 7.7 hemoglobin of 7.8 and the platelet count of 199. The rest of the electrolytes are within normal limits. Objective - Vital Signs Vital signs: Vital Signs Temp 98 F 03/11/22 08:00 Pulse 57 L 03/11/22 08:00 Resp 18 03/11/22 08:00 BP 124/69 03/11/22 08:00 Pulse Ox 97 03/11/22 08:00 FiO2 100 03/08/22 07:42 Intake & Output 03/10/22 03/11/22 03/11/22 18:59 06:59 18:59 Intake Total 1504 Output Total 782 Balance 722 Intake: IV 1150 Cefepime 2 gm In Sodium 200 Chloride 0.9% 100 ml @ 25 mls/hr IVPB Q8HR HARRIS Rx# :[id number] Dextrose 5% in Water 1, 800 000 ml @ 100 mls/hr IV . [id number] HARRIS with Sodium Bicarb (1 Meq/ml) 150 ml Rx#:[id number] Levofloxacin 750Mg-D5w 150 Pmx 750 mg In Dextrose/ Water 1 150ml.bag @ 100 mls/hr IVPB Q24H HARRIS Rx#: [id number] Oral 354 Output: Urine 675 Post Void Residual 107 Other: Voiding Method Indwelling Catheter Indwelling Catheter # Voids 2 # Bowel Movements 1 - Exam GENERAL EXAM: Alert, pleasant 67-year-old male patient, appears older than stated age, the patient resting comfortably. No agitation. No restlessness. No tachypnea. Oxygen has been on RA HEAD: Normocephalic. EYES: Normal reaction of pupils, equal size. NOSE: Clear with pink turbinates. THROAT: No erythema or exudates. NECK: No masses, no JVD. CHEST: No chest wall deformity. LUNGS: Equal air entry with bilateral scattered rhonchi. Diminished breath on the left lung base and there is scattered expiratory wheezes of the lung regalado bilaterally. CVS: S1 and S2 normal with no audible murmur, regular rhythm. ABDOMEN: No hepatosplenomegaly, normal bowel sounds, no guarding or rigidity. SPINE: No scoliosis or deformity SKIN: No rashes CENTRAL NERVOUS SYSTEM: No focal deficits, tone is normal in all 4 extremities. EXTREMITIES: Left upper extremity in a sling. There is no peripheral edema. No clubbing, no cyanosis. Peripheral pulses are intact. - Labs CBC & Chem 7: 03/11/22 05:53 03/11/22 05:53 Labs: Abnormal Lab Results - Last 24 Hours (Table) 03/10/22 03/11/22 03/11/22 Range/Units 18:02 05:53 05:53 RBC 3.02 L (4.40-5.60) X 10*6/uL Hgb 7.8 L (13.0-17.0) g/dL Hct 24.3 L (39.6-50.0) % MCH 25.8 L (27.0-32.0) pg RDW 17.9 H (11.5-14.5) % Absolute Nucleated RBC 0.08 H (0.00-0.00) X 10*3/uL Immature Gran # 0.27 H (0.00-0.04) X 10*3/uL Eosinophils # 0.02 L (0.04-0.35) X 10*3/uL NRBC/100 WBC Diff 1.1 H (0.0-0.0) /100 WBCS BUN/Creatinine Ratio 31.11 H (12.00-20.00) Ratio POC Glucose (mg/dL) 119 H (70-110) mg/dL Calcium 8.3 L (8.7-10.3) mg/dL Microbiology - Last 24 Hours (Table) 03/06/22 15:53 Blood Culture - Preliminary Blood No Growth after 96 hours 03/06/22 15:53 Blood Culture - Preliminary Blood No Growth after 96 hours Assessment and Plan Plan: Metastatic adenocarcinoma of the right lung. The patient has [employer] metastasis status post craniotomy. Seizure activity, recent back in January 2022 related to [employer] metastases and a CAT scan Valerio showed vasogenic edema and effacement of the right lateral ventricle from [employer] metastases. There was an intracranial mass involving the right posterior frontal lobe with surrounding vasogenic edema and it was also effacement of the right lateral ventricle and there is postcraniotomy. Curren tly the patient is free of any seizures Acute hypoxic respiratory failure secondary to COPD and extensive left lower lobe pneumonia, currently on BiPAP. The patient carries a DNR/DNI CODE STATUS. Over the past 24 hours, the patient was taken off the BiPAP and the patient is currently on RA Non-anion gap metabolic acidosis, the bicarb deficit is being adjusted by a bicarb infusion, improved Elevated pro calcitonin level, could be related to pneumonia/UTI E. coli UTI, ESBL Severe 02 dependent COPD Acute lactic acidosis, improving with fluid resuscitation Acute hypotension, likely secondary to left lower lobe pneumonia/sepsis., The patient remains off pressors, recovered COVID 19 infection ( september 2021) vaccinated with Moderna x1 in the past, recovered Acute on Chronic anemia and history of chronic gastritis, history of colonic polyps. The hemoglobin was at 6.3 and the patient was given units of packed RBC History of vocal cord paralysis Benign essential hypertension Tobacco dependence syndrome History of underlying COPD presently inactive History of alcoholism Chronic anorexia and weight loss. Left humerus fracture Plan Patient is on room air oxygen Use IV Invanz and stop the cefepime and Levaquin We'll monitor the pro calcitonin level A total of 3 units of packed RBC has been given, hemoglobin is stable for now No agitation and the patient is currently off Precedex The patient advanced her diet Continue Dimitryra Patient is having a regular diet Lovenox 40 mg subcu portably prophylaxis Discuss family his prognosis which is essentially poor
[2022-03-11 18:08] LABS: Glucose,Whole Blood 121 mg/dL (70-110)
--- NOTE | 2022-03-11 20:14 | P.PN ---
Subjective This is a 67 year old male with recent diagnosis of metastatic adenocarcinoma of right lung, status post craniotomy, hypertension, gastroesophageal reflux disease, COPD, paralyzed vocal chords, chronic nicotine use, chronic alcohol use, recent left humerous fracture with no surgical intervention has been using immobility sling to left arm. [facility] of breath and hypoxia. He has been at [facility] for sub acute rehab since last admission. He is a poor history and is significantly short of breath when talking. He was initially placed on non rebreather in the EC and transitioned to BiPAP, he is currently on hi flow cannula. He was found to have hemoglobin of 6.2 and is currently receiving 2 units of packed red blood cells. Patient had brain CT completed on admission showing interval right parietal craniotomy flap with CSF density sliver of extra-axial fluid underlying the craniotomy flap measuring 5 mm thick, with a 1.4 cm area of focal hypodensity within the right parietal lobe at the site of previous 2.0 cm parenchymal lesion. Possible posttreatment change. Similar 1.3 cm mid right paramedian parenchymal lesion continues to have some mass effect at the roof of the right lateral ventricle. Prominent white matter hypodensity continues throughout the right frontal and parietal lobes. There is no acute intracranial hemorrage. Patient had D-Dimer of 3.[address] angiography was done showing consolidation and volume loss entire left lower lobe, pneumonia versus mucous impaction. There is right upper lobe mass enlarged from previous imaging, there is also adjacent smaller right upper lobe mass and a third spiculated lesion along the minor fissure is relatively similar at 2.4 cm. Possible esophagitis. Patient presents with white count 12.9, hgb 6.3. Lactic acidosis at 13.6. He does have troponin elevation. Urine showing trace protein, trace blood, large le ukocyte esterase. Urine culture pending. Patient is admitted to intensive care unit and started on empiric antibiotic coverage with IV azithromycin, IV cefepime, IV vancomycin. He required precedex overnight for some acute agitation and dyspnea which is currently discontinued. He has haldol as needed for acute aggitation currently. He is also requiring levophed for an initial blood pressure in the 70s systolic and currently attempting to wean. His blood pressure currently is 101/62. Patient has been weaned off BiPAP and is currently on 13 L High Flow cannula with oxygen saturation of 100%. He did have a temperature of 101.1 during the evening. Patient is being hydrated with normal saline. Follow up chest xray this morning showing COPD with known lung mass. Lactic acid has improved with fluid resuscitation, has received 2L fluid bolus. 03/08/2022 Patient is evaluated in follow up in the intensive care unit, currently has sitter at the bedside. Has been less agitated. He is alert x2 today, and more awake. He is less short of breath, able to carry on a conversation. Was able to talk with patients daughter kaylyn this morning who is the DPOA. Per Kaylyn patient had seizure like activity at [facility] and from there was brought to [facility] and was found to have brain lesion and underwent craniotomy this was done about 2 to 3 weeks ago and from hospital was brought back to [facility] to continue with rehab. He was at orthopedics and was significant short of breath and brought to the hospital. This was his initial follow up at since being discharge to [facility] with left humerus fracture. Oxygen has been weaned down to 9 L high flow cannula with oxygen saturation 93% and hopeful he will be able to be further weaned today. he continues to maintain blood pressure 120s systolic off pressor support. Continues on empiric antibiotic coverage with IV cefepime, IV levaquin. Continues on IV solumedrol, started on bicarb gtt. 03/09/2022 Patient improving slightly and gradually He states his breathing is slightly better for the same, he states he can walk to the bathroom with no exertional dyspnea but patient was some tachypnea when talking. Positive cough with no phlegm. No chest pain. No headache or neurological symptoms. No more seizure-like activity Patient remains on IV Levaquin and cefepime Probasco stoning elevated 14.7 CT of the brain showing right partial craniectomy with right parenchymal 1.4 and 1.3 densities suspicious for metastatic disease. Patient is currently DO NOT RESUSCITATE Remains also on steroids prednisone 40 mg and sodium bicarb and Keppra 03/10/2022 Patient lying in bed comfortable with no significant symptoms, is awake and alert and oriented, ex- at bedside N and patient's vision to discuss his health care with her. Patient and are aware of patient diagnosis of lung cancer with metastasis to the brain. She confirmed to me that patient is going to follow up with . also was an outpatient and radiation oncologist and she is going to follow up when he goes to rehab to make sure he will see his doctors upon discharge. Midline and placed remains on Levaquin and cefepime Prednisone 40 mg till 03/12 per scale installer. Continue with Gumaro. 03/11/2022 Patient improving slowly and gradually, is generally weak. Her last dose of prednisone. His urine cultures: ESBL E. coli, antibiotics were adjusted with Invanz. We will consult ID team for further recommendation pending discharge. Patient and ex-, plan are aware with the need for outpatient follow-up with Dr. weller Patient has peripheral line rather than midline, which was ordered. Patient has urinary incontinence. Bladder scan checked yesterday was 150+, today it was 241. No need for Guillen catheter for now. Objective - Vital Signs Vital signs: Vital Signs Temp 98.1 F 03/11/22 13:48 Pulse 69 03/11/22 13:48 Resp 18 03/11/22 13:48 BP 103/60 03/11/22 13:48 Pulse Ox 95 03/11/22 13:48 FiO2 100 03/08/22 07:42 Intake & Output 03/10/22 03/11/22 03/11/22 18:59 06:59 18:59 Intake Total 1504 118 Output Total 782 Balance 722 118 Intake: IV 1150 Cefepime 2 gm In Sodium 200 Chloride 0.9% 100 ml @ 25 mls/hr IVPB Q8HR [facility] Rx# :[id number] Dextrose 5% in Water 1, 800 000 ml @ 100 mls/hr IV . [id number] [facility]IS with Sodium Bicarb (1 Meq/ml) 150 ml Rx#:[id number] Levofloxacin 750Mg-D5w 150 Pmx 750 mg In Dextrose/ Water 1 150ml.bag @ 100 mls/hr IVPB Q24H [facility]IS Rx#: [id number] Oral 354 118 Output: Urine 675 Post Void Residual 107 Other: Voiding Method Indwelling Catheter Indwelling Catheter # Voids 2 1 # Bowel Movements 1 1 - Exam -GENERAL: The patient is alert and oriented x3, not in any acute distress. Well developed, well nourished. Patient is weak and lethargic HEENT: Pupils are round and equally reacting to light. EOMI. No scleral icterus. No conjunctival pallor. Normocephalic, atraumatic. No pharyngeal erythema. No thyromegaly. CARDIOVASCULAR: S1 and S2 present. No murmurs, rubs, or gallops. -PULMONARY: Chest is clear to auscultation, no wheezing . Tachypnea with bilateral crepitation ABDOMEN: Soft, nontender, nondistended, normoactive bowel sounds. No palpable organomegaly. MUSCULOSKELETAL: No joint swelling or deformity. EXTREMITIES: No cyanosis, clubbing, or pedal edema. NEUROLOGICAL: Gross neurological examination did not reveal any focal deficits. SKIN: No rashes. no petechiae. - Labs CBC & Chem 7: 03/11/22 05:53 03/11/22 05:53 Labs: Abnormal Lab Results - Last 24 Hours (Table) 03/10/22 03/11/22 03/11/22 Range/Units 18:02 05:53 05:53 RBC 3.02 L (4.40-5.60) X 10*6/uL Hgb 7.8 L (13.0-17.0) g/dL Hct 24.3 L (39.6-50.0) % MCH 25.8 L (27.0-32.0) pg RDW 17.9 H (11.5-14.5) % Absolute Nucleated RBC 0.08 H (0.00-0.00) X 10*3/uL Immature Gran # 0.27 H (0.00-0.04) X 10*3/uL Eosinophils # 0.02 L (0.04-0.35) X 10*3/uL NRBC/100 WBC Diff 1.1 H (0.0-0.0) /100 WBCS BUN/Creatinine Ratio 31.11 H (12.00-20.00) Ratio POC Glucose (mg/dL) 119 H (70-110) mg/dL Calcium 8.3 L (8.7-10.3) mg/dL Microbiology - Last 24 Hours (Table) 03/06/22 15:53 Blood Culture - Preliminary Blood No Growth after 96 hours 03/06/22 15:53 Blood Culture - Preliminary Blood No Growth after 96 hours Assessment and Plan Assessment: ESBL E. coli Acute hypoxic respiratory failure from COPD and left lower lobe pneumonia, improving Left lower lobe pneumonia with sepsis present on admission . Improved Septic shock requiring vasopressor support currently maintaining blood pressures off pressor support Recent diagnosis metastatic adenocarcinoma of right lung Brain metastasis post craniotomy History of seizure activity Acute on chronic anemia status post 3 units packed red blood cells Elevated D-Dimer, CTA negative for pulmonary embolism Troponin elevation, possible troponin leak from sepsis Lactic acidosis Recent left humerus fracture with no surgical repair has been using sling History of COPD History gastroesophageal reflux disease History of vocal cord paralysis Hypertension history currently normotensive Anemia of chronic disease History of chronic alcohol use Chronic tobacco use Plan: Continue with Invanz, consult ID team for ESBL E. coli. Possible need for Patient will need follow-up with Dr. weller as outpt. Patient unconscious upon discharge in 1-2 weeks, this information was relayed to the patient and his ex- Radha at bedside and they are agreeable Continue with prednisone 40 mg Continue with Keppra DVT prophylaxis: Lovenox GI prophylaxis Pepcid
[2022-03-12 00:23] LABS: Glucose,Whole Blood 101 mg/dL (70-110)
[2022-03-12 05:58] LABS: Glucose,Whole Blood 74 mg/dL (70-110)
[2022-03-12] MEDS: ERTAPENEM 1 GM in SODIUM CHLORIDE 0.9% 50 ML IVPB SCH (10:28)
--- NOTE | 2022-03-12 10:39 | P.PN ---
Subjective Progress Note Date: 03/12/22 67-year-old male patient with metastatic adenocarcinoma of the lung, recent diagnosis was made by bronchoscopy and biopsy of a right lung mass. 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 The patient has undergone previous craniotomy. The exact timing and the details of the craniotomy is not known. The patient came into the emergency department with worsening shortness of breath and increased anxiety. He stated that he was unable to breathe. He was having increased tachypnea and the patient was also hypoxic. Immediately, the patient was placed initially on 100% nonrebreather facemask of alignment of the patient was transitioned to a BiPAP mask. CAT scan of the brain was done and it showed a craniotomy flap over the right parietal area. The same time, there was some postsurgical changes and a 1.4 cm lesion along the right parietal lobe site that was previously 2.0 cm in size. There was another 1.3 cm right paramedian lesion causing some mass effect on the lateral ventricle on the right. Also, CAT scan of the chest was not any children of this of any pulmonary embolism. There was extensive consolidation of the left lower lobe. There was also a large right lung mass measuring approximately 4.7 x 3.7 cm inside that had grown in addition to other satellite lesions in the right upper lobe measuring 1.2 cm and in the minor fissure on the right. The patient was brought into the intensive care unit. Overnight, he struggled breathing and agitation. He was initially placed on Precedex. He became hypotensive. Subsequently Precedex was discontinued and the patient was placed on Haldol and later on given Ativan 2 mg along with morphine 2 mg. This morning, he is awake. He is on 2 point restraints. His hemoglobin was at 6.2 and he was given units of packed RBC. His lactic acid level initially was around 13.6 and dropped TO 3.4 patient was given IV fluids in the form of normal saline at the rate of 100 mL an hour. His lactic acid level dropped. His echoes at 3.6. He remains on BiPAP at a pressure of 14/6 cm a fourth heart sound. There is tachypneic. He was covered with broad- spectrum antibiotics including a combination of cefepime, Zithromax and vancomycin. Guillen catheter is in place. He is quite cachectic and emaciated. He is not lost. He has had previous admissions. The patient has severe COPD. He has also history of a paralyzed vocal cords. Is a chronic smoker. Other morbid conditions include hypertension, weakness with episodes of fall and the patient has sustained a left humeral fracture, for which he was offered a sling. The patient is also hypotensive at this point in time. He became hypotensive in the ICU. He was given IV fluids and the patient is also on norepinephrine infusion On today's evaluation of 03/08/2022, the patient is much more comfortable. Overnight, he did have some agitation and restlessness, he was given Ativan and Haldol and currently is much more comfortable. His pulse ox is 95% and I'll leave the FiO2 down to 4 L. Is currently off the BiPAP. He is on a combination of antibiotics including cefepime, Zithromax and vancomycin. Repeat chest x-ray shows a right upper lobe mass. No significant consolidation of the left lower lobe. The patient's echoes at 5.5 with a hemoglobin of 8. Electrolytes are all stable. The serum bicarb is at 13 and is consistent with melena negative metabolic acidosis and potassium levels at 3.2 that needs to be replaced. BUN is at 19 with a creatinine of 0.6. The patient is receiving IV fluids in the form of 0.9 at the rate of 1 50 mL an hour. There was a troponin leak. Pro-calcitonin with a 14.7. UA was abnormal. Over 19 testing was negative. Cultures are negative including the blood culture the urine culture still pending for now. No fever. Hemodynamically stable. No seizure activity has been noted. Remains on bronchodilators and steroids. He received packed RBC total of 3 units and hemoglobin is stable for now. Has a triple-lumen c atheter in his right femoral vein. 03/09/2022, the patient is awake and alert and communicating. No significant respiratory distress. He remains on oxygen which is currently on room air oxygen. He has a congested cough. No significant sputum production. No chest pain. No altered mentation. It was covered with broad-spectrum antibiotics due to a concern of a left lower lobe pneumonia. I discontinued the vancomycin yesterday. The patient remains on a combination of cefepime and Levaquin for now. No seizure activity. Remains on bronchodilators. Remains on IV Solu- Medrol. Blood work from today shows a white cell count of 5.1 with a hemoglobin of 8.1, sodium is 143, serum bicarb is at 19 with a BUN of 24 and a creatinine of 0.7. IV fluids there is a former bicarb infusion rate of 100 mL an hour and his bicarb deficit is being corrected. As noted, his serum bicarb is up to 19. He has no other specific complaints. He has a severe total of 3 units of packed RBC and hemoglobin is currently at 8.1. 03/10/2022, the patient is being seen on a medical floor. The patient was transferred also the intensive care unit yesterday. The patient is doing well. No specific complaints. He is on room air oxygen. He is on Levaquin and cefepime as broad-spectrum antibiotic coverage. He is also on prednisone burst taper. He is visiting D5 water with bicarbonate infusion at the rate of 75 mL an hour. His serum bicarb is normalized for now it's up to 23 and the patient's echoes of 5.7 with a hemoglobin of 7.2. He is tolerating his diet. 03/11/2022, the patient is doing well. No specific complaints. He remains on room air oxygen. No chest pain. No shortness of breath. Urine culture was positive for E. coli and this was an ESBL producing organism. Up with the patient on IV Invanz. The blood work shows a white cell count of 7.7 hemoglobin of 7.8 and the platelet count of 199. The rest of the electrolytes are within normal limits. The patient is seen today 03/12/2022 in follow-up on the regular medical floor. He is currently resting comfortably in bed. He is alert in no acute distress. He is on room air oxygen with O2 saturation the need and is ready denies any worsening shortness of breath, cough or congestion. He remains on ertapenem for his ESBL UTI secondary to E. coli. He is status post 3 units of packed red blood cells admission. Current hemoglobin 7.8. He remains on Lovenox for DVT prophylaxis. Objective - Vital Signs Vital signs: Vital Signs Temp 97.5 F L 03/12/22 08:00 Pulse 62 03/12/22 08:00 Resp 22 03/12/22 08:00 BP 123/67 03/12/22 08:00 Pulse Ox 94 L 03/12/22 08:00 FiO2 100 03/08/22 07:42 Intake & Output 03/11/22 03/12/22 03/12/22 18:59 06:59 18:59 Intake Total 358 Balance 358 Intake: Oral 358 Other: Voiding Method Indwelling Catheter # Voids 1 1 # Bowel Movements 1 - Exam GENERAL EXAM: Alert, pleasant 67-year-old male patient, appears older than stated age, the patient is resting comfortably. On room air. HEAD: Normocephalic. EYES: Normal reaction of pupils, equal size. NOSE: Clear with pink turbinates. THROAT: No erythema or exudates. NECK: No masses, no JVD. CHEST: No chest wall deformity. LUNGS: Equal air entry with bilateral scattered rhonchi. Diminished breath on the left lung base and there is scattered expiratory wheezes of the lung regalado bilaterally. CVS: S1 and S2 normal with no audible murmur, regular rhythm. ABDOMEN: No hepatosplenomegaly, normal bowel sounds, no guarding or rigidity. SPINE: No scoliosis or deformity SKIN: No rashes CENTRAL NERVOUS SYSTEM: No focal deficits, tone is normal in all 4 extremities. EXTREMITIES: Left upper extremity in a sling. There is no peripheral edema. No clubbing, no cyanosis. Peripheral pulses are intact. - Labs CBC & Chem 7: 03/11/22 05:53 03/11/22 05:53 Labs: Abnormal Lab Results - Last 24 Hours (Table) 03/11/22 Range/Units 18:06 POC Glucose (mg/dL) 121 H (70-110) mg/dL Microbiology - Last 24 Hours (Table) 03/06/22 15:53 Blood Culture - Preliminary Blood No Growth after 120 hours 03/06/22 15:53 Blood Culture - Preliminary Blood No Growth after 120 hours Assessment and Plan Assessment: Metastatic adenocarcinoma of the right lung. The patient has TECHNICAL REP metastasis status post craniotomy. Seizure activity, recent back in January 2022 related to TECHNICAL REP metastases and a CAT scan showed vasogenic edema and effacement of the right lateral ventricle from TECHNICAL REP metastases. There was an intracranial mass involving the right posterior frontal lobe with surrounding vasogenic edema and it was also effacement of the right lateral ventricle and there is postcraniotomy. Currently the patient is free of any seizures Acute hypoxic respiratory failure secondary to COPD and extensive left lower lo be pneumonia, recovered and currently on room air. The patient carries a DNR/DNI CODE STATUS. Non-anion gap metabolic acidosis, the bicarb deficit is being adjusted by a bicarb infusion, improved Elevated pro calcitonin level, could be related to pneumonia/UTI E. coli UTI, ESBL Severe 02 dependent COPD Acute lactic acidosis, improving with fluid resuscitation Acute hypotension, likely secondary to left lower lobe pneumonia/sepsis., The patient remains off pressors, recovered COVID 19 infection ( september 2021) vaccinated with Moderna x1 in the past, recovered Acute on Chronic anemia and history of chronic gastritis, history of colonic polyps. Status post 3 units packed red blood cells as mentioned. Current hemoglobin 7.8 History of vocal cord paralysis with hoarseness Benign essential hypertension Tobacco dependence syndrome History of underlying COPD presently inactive History of alcoholism Chronic anorexia and weight loss. Left humerus fracture Plan: The patient was seen and evaluated Labs and medications reviewed To continue ertapenem for a total of 5 days Could be transferred to ECF once cleared by medicine DO NOT RESUSCITATE/DO NOT INTUBATE CODE STATUS I have personally seen and examined the patient, performed the documentation and the assessment and plan as written. Number of minutes spent on the visit: 10.
[2022-03-12] MEDS: ENOXAPARIN 40 MG/0.4 ML SYRINGE SQ SCH (10:41)
[2022-03-12] MEDS: levETIRAcetam 500 MG TAB PO SCH ×2 (10:46→20:09)
[2022-03-12] MEDS: FAMOTIDINE 20 MG/2 ML VIAL IV SCH ×2 (10:46→20:09)
[2022-03-12] MEDS: predniSONE 20 MG TAB PO SCH (10:51)
[2022-03-12 12:34] LABS: Glucose,Whole Blood 71 mg/dL (70-110)
[2022-03-12 17:34] LABS: Glucose,Whole Blood 149 mg/dL (70-110)
[2022-03-12] MEDS: CALCIUM CARBONATE 500 MG CHEWABLE PO PRN (20:10)
--- NOTE | 2022-03-12 22:47 | P.PN ---
Subjective This is a 67 year old male with recent diagnosis of metastatic adenocarcinoma of right lung, status post craniotomy, hypertension, gastroesophageal reflux disease, COPD, paralyzed vocal chords, chronic nicotine use, chronic alcohol use, recent left humerous fracture with no surgical intervention has been using immobility sling to left arm. [facility] breath and hypoxia. He has been at [facility] for sub acute rehab since last admission. He is a poor history and is significantly short of breath when talking. He was initially placed on non rebreather in the EC and transitioned to BiPAP, he is currently on hi flow cannula. He was found to have hemoglobin of 6.2 and is currently receiving 2 units of packed red blood cells. Patient had brain CT completed on admission showing interval right parietal craniotomy flap with CSF density sliver of extra-axial fluid underlying the craniotomy flap measuring 5 mm thick, with a 1.4 cm area of focal hypodensity within the right parietal lobe at the site of previous 2.0 cm parenchymal lesion. Possible posttreatment change. Similar 1.3 cm mid right paramedian parenchymal lesion continues to have some mass effect at the roof of the right lateral ventricle. Prominent white matter hypodensity continues throughout the right frontal and parietal lobes. There is no acute intracranial hemorrage. Patient had D-Dimer of 3.[address] angiography was done showing consolidation and volume loss entire left lower lobe, pneumonia versus mucous impaction. There is right upper lobe mass enlarged from previous imaging, there is also adjacent smaller right upper lobe mass and a third spiculated lesion along the minor fissure is relatively similar at 2.4 cm. Possible esophagitis. Patient presents with white count 12.9, hgb 6.3. Lactic acidosis at 13.6. He does have troponin elevation. Urine showing trace protein, trace blood, large le ukocyte esterase. Urine culture pending. Patient is admitted to intensive care unit and started on empiric antibiotic coverage with IV azithromycin, IV cefepime, IV vancomycin. He required precedex overnight for some acute agitation and dyspnea which is currently discontinued. He has haldol as needed for acute aggitation currently. He is also requiring levophed for an initial blood pressure in the 70s systolic and currently attempting to wean. His blood pressure currently is 101/62. Patient has been weaned off BiPAP and is currently on 13 L High Flow cannula with oxygen saturation of 100%. He did have a temperature of 101.1 during the evening. Patient is being hydrated with normal saline. Follow up chest xray this morning showing COPD with known lung mass. Lactic acid has improved with fluid resuscitation, has received 2L fluid bolus. 03/08/2022 Patient is evaluated in follow up in the intensive care unit, currently has sitter at the bedside. Has been less agitated. He is alert x2 today, and more awake. He is less short of breath, able to carry on a conversation. Was able to talk with patients daughter mya this morning who is the DPOA. Per Mya patient had seizure like activity at [facility] and from there was brought to [facility] and was found to have brain lesion and underwent craniotomy this was done about 2 to 3 weeks ago and from hospital was brought back to [facility] to continue with rehab. He was at orthopedics and was significant short of breath and brought to the hospital. This was his initial follow up at since being discharge to [facility] with left humerus fracture. Oxygen has been weaned down to 9 L high flow cannula with oxygen saturation 93% and hopeful he will be able to be further weaned today. he continues to maintain blood pressure 120s systolic off pressor support. Continues on empiric antibiotic coverage with IV cefepime, IV levaquin. Continues on IV solumedrol, started on bicarb gtt. 03/09/2022 Patient improving slightly and gradually He states his breathing is slightly better for the same, he states he can walk to the bathroom with no exertional dyspnea but patient was some tachypnea when talking. Positive cough with no phlegm. No chest pain. No headache or neurological symptoms. No more seizure-like activity Patient remains on IV Levaquin and cefepime Probasco stoning elevated 14.7 CT of the brain showing right partial craniectomy with right parenchymal 1.4 and 1.3 densities suspicious for metastatic disease. Patient is currently DO NOT RESUSCITATE Remains also on steroids prednisone 40 mg and sodium bicarb and Keppra 03/10/2022 Patient lying in bed comfortable with no significant symptoms, is awake and alert and oriented, ex- at bedside N and patient's vision to discuss his health care with her. Patient and are aware of patient diagnosis of lung cancer with metastasis to the brain. She confirmed to me that patient is going to follow up with . also was an outpatient and radiation oncologist and she is going to follow up when he goes to rehab to make sure he will see his doctors upon discharge. Midline and placed remains on Levaquin and cefepime Prednisone 40 mg till 03/12 per payroll and benefits analyst. Continue with Gumaro. 03/11/2022 Patient improving slowly and gradually, is generally weak. Her last dose of prednisone. His urine cultures: ESBL E. coli, antibiotics were adjusted with Invanz. We will consult ID team for further recommendation pending discharge. Patient and ex-, plan are aware with the need for outpatient follow-up with Dr. weller Patient has peripheral line rather than midline, which was ordered. Patient has urinary incontinence. Bladder scan checked yesterday was 150+, today it was 241. No need for Guillen catheter for now. 03/12/2022 Patient feels very weak today and he does not feel he is ready to go to rehab/ECF today and he will was asked to stay in the hospital for now. The most active problem is ESBL E. coli UTI, currently patient is on Invanz Other than no chest pain or dyspnea or abdominal pain Glucose controlled Plan after discussed with the patient and ex- Radha already Hospital discharge in 24-48 hours Objective - Vital Signs Vital signs: Vital Signs Temp 97.5 F L 03/12/22 08:00 Pulse 62 03/12/22 08:00 Resp 22 03/12/22 08:00 BP 123/67 03/12/22 08:00 Pulse Ox 94 L 03/12/22 08:00 FiO2 100 03/08/22 07:42 Intake & Output 03/11/22 03/12/22 03/12/22 18:59 06:59 18:59 Intake Total 358 Balance 358 Intake: Oral 358 Other: Voiding Method Indwelling Catheter Indwelling Catheter # Voids 1 1 # Bowel Movements 1 - Exam -GENERAL: The patient is alert and oriented x3, not in any acute distress. Well developed, well nourished. Patient is weak and lethargic HEENT: Pupils are round and equally reacting to light. EOMI. No scleral icterus. No conjunctival pallor. Normocephalic, atraumatic. No pharyngeal erythema. No thyromegaly. CARDIOVASCULAR: S1 and S2 present. No murmurs, rubs, or gallops. -PULMONARY: Chest is clear to auscultation, no wheezing . Tachypnea with bilateral crepitation ABDOMEN: Soft, nontender, nondistended, normoactive bowel sounds. No palpable organomegaly. MUSCULOSKELETAL: No joint swelling or deformity. EXTREMITIES: No cyanosis, clubbing, or pedal edema. NEUROLOGICAL: Gross neurological examination did not reveal any focal deficits. SKIN: No rashes. no petechiae. - Labs CBC & Chem 7: 03/11/22 05:53 03/11/22 05:53 Labs: Abnormal Lab Results - Last 24 Hours (Table) 03/11/22 Range/Units 18:06 POC Glucose (mg/dL) 121 H (70-110) mg/dL Microbiology - Last 24 Hours (Table) 03/06/22 15:53 Blood Culture - Preliminary Blood No Growth after 120 hours 03/06/22 15:53 Blood Culture - Preliminary Blood No Growth after 120 hours Assessment and Plan Assessment: ESBL E. coli Acute hypoxic respiratory failure from COPD and left lower lobe pneumonia, improving Left lower lobe pneumonia with sepsis present on admission . Improved Septic shock requiring vasopressor support currently maintaining blood pressures off pressor support Recent diagnosis metastatic adenocarcinoma of right lung Brain metastasis post craniotomy History of seizure activity Acute on chronic anemia status post 3 units packed red blood cells Elevated D-Dimer, CTA negative for pulmonary embolism Troponin elevation, possible troponin leak from sepsis Lactic acidosis Recent left humerus fracture with no surgical repair has been using sling History of COPD History gastroesophageal reflux disease History of vocal cord paralysis Hypertension history currently normotensive Anemia of chronic disease History of chronic alcohol use Chronic tobacco use Plan: Continue with Invanz, consult ID team for ESBL E. coli. Possible need for Patient will need follow-up with Dr. weller as outpt. Patient unconscious upon discharge in 1-2 weeks, this information was relayed to the patient and his ex- Radha at bedside and they are agreeable Continue with prednisone 40 mg Continue with Keppra DVT prophylaxis: Lovenox GI prophylaxis Pepcid
[2022-03-13 00:12] LABS: Glucose,Whole Blood 123 mg/dL (70-110)
--- NOTE | 2022-03-13 06:53 | P.CONS ---
History of Present Illness - Reason for Consult Consult date: 03/12/22 - History of Present Illness patient is a 67-year-old male who presented to the hospital about a week ago on 03/06/2022 for evaluation of mental status changes and some shortness of breath in this patient who did have a history of metastatic lung cancer with mets to the brain apparently the [facility] his left humeral fracture when the patient started having increasing shortness of breath EMS was called and and the patient was brought into the hospital on arrival to the ER patient was afebrile however he did spike a fever of 101 F on 03/07/2022 the patient did have a low-grade fever afterwards patient not hypoxic or need for supplemental oxygen at this point p atient did have a low hemoglobin of 6.5 however he did have a normal white count patient did have a normal kidney function he did have a procalcitonin 14.70 patient did have a positive UA on 03/06/2021 2 SARS-CoV-2 testing was negative patient did have a CT angiogram of the chest on admission with volume loss and consolidation involving the entire left lower lobe correlate for pneumonia patient has been evaluated by pulmonary services blood culture has been obtained which has been negative sputum was not collected urine was finalized with ESBL E. coli patient was initially treated with Rocephin antibiotic was switched over to ertapenem infectious disease was consulted last night for further management of antibiotic therapy patient currently do not have any Guillen catheter did have some difficulty urination no urgency suprapubic or flank pain and denies having any nausea no vomiting Past Medical History Past Medical History: Cancer, GERD/Reflux, Hypertension Additional Past Medical History / Comment(s): paralyzed vocal cord, SKIN CANCER(FACE), metastatic adenocarcinoma of the right lung History of Any Multi-Drug Resistant Organisms: None Reported Past Surgical History: Orthopedic Surgery Additional Past Surgical History / Comment(s): triple endoscopy, LT KNEE SCOPE, LT KNEE MENISCUS SX Past Anesthesia/Blood Transfusion Reactions: No Reported Reaction Additional Past Anesthesia/Blood Transfusion Reaction / Comm: . Past Psychological History: No Psychological Hx Reported Smoking Status: Current every day smoker Past Alcohol Use History: None Reported Past Drug Use History: None Reported - Past Family History Father Family Medical History: Congestive Heart Failure (CHF), Myocardial Infarction (GA) Mother Family Medical History: No Reported History Additional Family Medical History / Comment(s): MOM IS IN GOOD HEALTH AT AGE 96 Medications and Allergies Home Medications Medication Instructions Recorded Confirmed Type HYDROcodone/APAP 7.5-325MG [Bomoseen 1 tab PO Q4H PRN 02/13/22 03/06/22 History 7.5-325] Calcium Carbonate [Tums] 500 mg PO Q4H PRN 03/06/22 03/06/22 History LORazepam [Ativan] 0.5 mg PO HS@2100 03/06/22 03/06/22 History Omeprazole 20 mg PO DAILY@0600 03/06/22 03/06/22 History amLODIPine [Norvasc] 7.5 mg PO DAILY@0900 03/06/22 03/06/22 History dexAMETHasone 2 mg PO BID@0900,209903/06/22 03/06/22 History levETIRAcetam [Keppra] 500 mg PO Q12HR@0900,209903/06/22 03/06/22 History lisinopriL [Zestril] 10 mg PO DAILY@0900 03/06/22 03/06/22 History polyethylene glycoL 3350 [Miralax] 17 gm PO DAILY@0900 03/06/22 03/06/22 History traMADol HCl [Ultram] 50 mg PO BID PRN 03/06/22 03/06/22 History Allergies Allergy/AdvReac Type Severity Reaction Status Date / Time No Known Allergies Allergy Verified 03/06/22 22:23 Physical Exam Vitals: Vital Signs Temp Pulse Resp BP Pulse Ox 03/12/22 08:00 97.5 F L 62 22 123/67 94 L 03/12/22 02:35 98.0 F 59 L 18 132/77 99 03/11/22 20:00 18 03/11/22 19:23 98.3 F 68 18 139/78 94 L 03/11/22 13:48 98.1 F 69 18 103/60 95 Intake and Output 03/11/22 03/12/22 03/12/22 22:59 06:59 14:59 Intake Total 240 Balance 240 Intake: Oral 240 Other: Voiding Method Indwelling Catheter # Voids 1 1 # Bowel Movements 1 Results CBC & Chem 7: 03/11/22 05:53 03/11/22 05:53 Labs: Abnormal Lab Results - Last 24 Hours (Table) 03/11/22 Range/Units 18:06 POC Glucose (mg/dL) 121 H (70-110) mg/dL Microbiology - Last 24 Hours (Table) 03/06/22 15:53 Blood Culture - Preliminary Blood No Growth after 120 hours 03/06/22 15:53 Blood Culture - Preliminary Blood No Growth after 120 hours Assessment and Plan Plan: 1patient is 67 male with a past medical he significant for metastatic lung cancer presented to hospital with increasing shortness of breath patient did have a CT angiogram of the chest negative for PE did shows a volume loss and consolidation left lower lobe and concerning for possible pneumonia as the patient have elevated procalcitonin. 2patient with a positive urine culture with ESBL E. coli no significant abdominal tenderness very mild urinary symptoms possible cystitis. 3obtain a sputum for gram stain culture and we will repeat his urine culture. 4continue with Invanz 1 g daily while waiting for the repeat cultures to be finalized. We will follow on clinical condition and cultures to further adjust medication if needed Thank you for this consultation will follow this patient along with you Time with Patient: Greater than 30
[2022-03-13] MEDS: levETIRAcetam 500 MG TAB PO SCH ×2 (08:31→20:06)
[2022-03-13] MEDS: ENOXAPARIN 40 MG/0.4 ML SYRINGE SQ SCH (08:32)
[2022-03-13] MEDS: ERTAPENEM 1 GM in SODIUM CHLORIDE 0.9% 50 ML IVPB SCH (08:32)
[2022-03-13] MEDS: FAMOTIDINE 20 MG/2 ML VIAL IV SCH ×2 (08:32→20:06)
[2022-03-13 08:45] LABS: Glucose,Whole Blood 79 mg/dL (70-110)
[2022-03-13 09:06] VITALS: BMI 22.3
--- NOTE | 2022-03-13 11:45 | P.PN ---
Subjective Progress Note Date: 03/13/22 67-year-old male patient with metastatic adenocarcinoma of the lung, recent diagnosis was made by bronchoscopy and biopsy of a right lung mass. 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 The patient has undergone previous craniotomy. The exact timing and the details of the craniotomy is not known. The patient came into the emergency department with worsening shortness of breath and increased anxiety. He stated that he was unable to breathe. He was having increased tachypnea and the patient was also hypoxic. Immediately, the patient was placed initially on 100% nonrebreather facemask of alignment of the patient was transitioned to a BiPAP mask. CAT scan of the brain was done and it showed a craniotomy flap over the right parietal area. The same time, there was some postsurgical changes and a 1.4 cm lesion along the right parietal lobe site that was previously 2.0 cm in size. There was another 1.3 cm right paramedian lesion causing some mass effect on the lateral ventricle on the right. Also, CAT scan of the chest was not any children of this of any pulmonary embolism. There was extensive consolidation of the left lower lobe. There was also a large right lung mass measuring approximately 4.7 x 3.7 cm inside that had grown in addition to other satellite lesions in the right upper lobe measuring 1.2 cm and in the minor fissure on the right. The patient was brought into the intensive care unit. Overnight, he struggled breathing and agitation. He was initially placed on Precedex. He became hypotensive. Subsequently Precedex was discontinued and the patient was placed on Haldol and later on given Ativan 2 mg along with morphine 2 mg. This morning, he is awake. He is on 2 point restraints. His hemoglobin was at 6.2 and he was given units of packed RBC. His lactic acid level initially was around 13.6 and dropped TO 3.4 patient was given IV fluids in the form of normal saline at the rate of 100 mL an hour. His lactic acid level dropped. His echoes at 3.6. He remains on BiPAP at a pressure of 14/6 cm a fourth heart sound. There is tachypneic. He was covered with broad- spectrum antibiotics including a combination of cefepime, Zithromax and vancomycin. Guillen catheter is in place. He is quite cachectic and emaciated. He is not lost. He has had previous admissions. The patient has severe COPD. He has also history of a paralyzed vocal cords. Is a chronic smoker. Other morbid conditions include hypertension, weakness with episodes of fall and the patient has sustained a left humeral fracture, for which he was offered a sling. The patient is also hypotensive at this point in time. He became hypotensive in the ICU. He was given IV fluids and the patient is also on norepinephrine infusion On today's evaluation of 03/08/2022, the patient is much more comfortable. Overnight, he did have some agitation and restlessness, he was given Ativan and Haldol and currently is much more comfortable. His pulse ox is 95% and I'll leave the FiO2 down to 4 L. Is currently off the BiPAP. He is on a combination of antibiotics including cefepime, Zithromax and vancomycin. Repeat chest x-ray shows a right upper lobe mass. No significant consolidation of the left lower lobe. The patient's echoes at 5.5 with a hemoglobin of 8. Electrolytes are all stable. The serum bicarb is at 13 and is consistent with melena negative metabolic acidosis and potassium levels at 3.2 that needs to be replaced. BUN is at 19 with a creatinine of 0.6. The patient is receiving IV fluids in the form of 0.9 at the rate of 1 50 mL an hour. There was a troponin leak. Pro-calcitonin with a 14.7. UA was abnormal. Over 19 testing was negative. Cultures are negative including the blood culture the urine culture still pending for now. No fever. Hemodynamically stable. No seizure activity has been noted. Remains on bronchodilators and steroids. He received packed RBC total of 3 units and hemoglobin is stable for now. Has a triple-lumen c atheter in his right femoral vein. 03/09/2022, the patient is awake and alert and communicating. No significant respiratory distress. He remains on oxygen which is currently on room air oxygen. He has a congested cough. No significant sputum production. No chest pain. No altered mentation. It was covered with broad-spectrum antibiotics due to a concern of a left lower lobe pneumonia. I discontinued the vancomycin yesterday. The patient remains on a combination of cefepime and Levaquin for now. No seizure activity. Remains on bronchodilators. Remains on IV Solu- Medrol. Blood work from today shows a white cell count of 5.1 with a hemoglobin of 8.1, sodium is 143, serum bicarb is at 19 with a BUN of 24 and a creatinine of 0.7. IV fluids there is a former bicarb infusion rate of 100 mL an hour and his bicarb deficit is being corrected. As noted, his serum bicarb is up to 19. He has no other specific complaints. He has a severe total of 3 units of packed RBC and hemoglobin is currently at 8.1. 03/10/2022, the patient is being seen on a medical floor. The patient was transferred also the intensive care unit yesterday. The patient is doing well. No specific complaints. He is on room air oxygen. He is on Levaquin and cefepime as broad-spectrum antibiotic coverage. He is also on prednisone burst taper. He is visiting D5 water with bicarbonate infusion at the rate of 75 mL an hour. His serum bicarb is normalized for now it's up to 23 and the patient's echoes of 5.7 with a hemoglobin of 7.2. He is tolerating his diet. 03/11/2022, the patient is doing well. No specific complaints. He remains on room air oxygen. No chest pain. No shortness of breath. Urine culture was positive for E. coli and this was an ESBL producing organism. Up with the patient on IV Invanz. The blood work shows a white cell count of 7.7 hemoglobin of 7.8 and the platelet count of 199. The rest of the electrolytes are within normal limits. The patient is seen today 03/12/2022 in follow-up on the regular medical floor. He is currently resting comfortably in bed. He is alert in no acute distress. He is on room air oxygen with O2 saturation the need and is ready denies any worsening shortness of breath, cough or congestion. He remains on ertapenem for his ESBL UTI secondary to E. coli. He is status post 3 units of packed red blood cells admission. Current hemoglobin 7.8. He remains on Lovenox for DVT prophylaxis. The patient is seen today 03/13/2022 in follow-up on the regular medical floor. He is awake and alert in no acute distress. Continues rest comfortably in bed. Maintaining O2 saturations in the 90s on room air. Follow-up cultures pending per ID services. Remains on ertapenem for ESBL, E. coli UTI. Lovenox for DVT prophylaxis. Plan is to return to [facility] post discharge. Objective - Vital Signs Vital signs: Vital Signs Temp 97.5 F L 03/13/22 08:30 Pulse 64 03/13/22 08:30 Resp 19 03/13/22 08:30 BP 137/69 03/13/22 08:30 Pulse Ox 92 L 03/13/22 08:30 FiO2 100 03/08/22 07:42 Intake & Output 03/12/22 03/13/22 03/13/22 18:59 06:59 18:59 Weight 66.5 kg Other: Voiding Method Indwelling Catheter Urinal Urinal Diaper Diaper Incontinent Incontinent - Exam GENERAL EXAM: Alert, 67-year-old male patient, appears older than stated age, the patient is resting comfortably. On room air. HEAD: Normocephalic. EYES: Normal reaction of pupils, equal size. NOSE: Clear with pink turbinates. THROAT: No erythema or exudates. NECK: No masses, no JVD. CHEST: No chest wall deformity. LUNGS: Equal air entry with bilateral scattered rhonchi. Diminished breath on the left lung base and there is scattered expiratory wheezes of the lung regalado bilaterally. CVS: S1 and S2 normal with no audible murmur, regular rhythm. ABDOMEN: No hepatosplenomegaly, normal bowel sounds, no guarding or rigidity. SPINE: No scoliosis or deformity SKIN: No rashes CENTRAL NERVOUS SYSTEM: No focal deficits, tone is normal in all 4 extremities. EXTREMITIES: Left upper extremity in a sling. There is no peripheral edema. No clubbing, no cyanosis. Peripheral pulses are intact. - Labs CBC & Chem 7: 03/11/22 05:53 03/11/22 05:53 Labs: Abnormal Lab Results - Last 24 Hours (Table) 03/12/22 03/13/22 Range/Units 17:32 00:09 POC Glucose (mg/dL) 149 H 123 H (70-110) mg/dL Microbiology - Last 24 Hours (Table) 03/06/22 15:53 Blood Culture - Final Blood No Growth after 144 hours 03/06/22 15:53 Blood Culture - Final Blood No Growth after 144 hours Assessment and Plan Assessment: Metastatic adenocarcinoma of the right lung. 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 Stable and on room air. Seizure activity, recent back in January 2022 related to SENIOR INFORMATION SECURITY ANALYST metastases and a CAT scan showed vasogenic edema and effacement of the right lateral ventricle from SENIOR INFORMATION SECURITY ANALYST metastases. There was an intracranial mass involving the right posterior frontal lobe with surrounding vasogenic edema and it was also effacement of the right lateral ventricle and there is postcraniotomy. Currently the patient is free of any seizures Acute hypoxic respiratory failure secondary to COPD and extensive left lower lobe pneumonia, recovered and currently on room air. The patient carries a DNR/DNI CODE STATUS. Non-anion gap metabolic acidosis, the bicarb deficit is being adjusted by a bicarb infusion, improved Elevated pro calcitonin level, could be related to pneumonia/UTI E. coli UTI, ESBL Severe 02 dependent COPD Acute lactic acidosis, improving with fluid resuscitation Acute hypotension, likely secondary to left lower lobe pneumonia/sepsis., The patient remains off pressors, recovered COVID 19 infection ( september 2021) vaccinated with Moderna x1 in the past, recovered Acute on Chronic anemia and history of chronic gastritis, history of colonic polyps. Status post 3 units packed red blood cells as mentioned. Current hemoglobin 7.8 History of vocal cord paralysis with hoarseness Benign essential hypertension Tobacco dependence syndrome History of underlying COPD presently inactive History of alcoholism Chronic anorexia and weight loss. Left humerus fracture Plan: The patient was seen and evaluated Labs and medications reviewed Remains stable and on room air Antibiotics per ID services Plan is to ECF post discharge We will follow as needed I have personally seen and examined the patient, performed the documentation and the assessment and plan as written. Number of minutes spent on the visit: 10.
[2022-03-13 12:41] LABS: Glucose,Whole Blood 109 mg/dL (70-110)
[2022-03-13 13:27] LABS: Appearance,Urine Clear (Clear); Bilirubin,Urine Negative (Negative); Blood,Urine Negative (Negative); Color,Urine Light Yellow; Glucose,Urine (UA) Negative (Negative); Ketones,Urine Negative (Negative); Leukocyte Esterase,Urine Negative (Negative); Nitrite,Urine Negative (Negative); Protein,Urine Negative (Negative); Specific Gravity,Urine 1.008 (1.001-1.035); Urobilinogen,Urine <2.0 mg/dL (<2.0)
[2022-03-13 17:17] LABS: Glucose,Whole Blood 106 mg/dL (70-110)
[2022-03-13 19:58] LABS: Glucose,Whole Blood 115 mg/dL (70-110)
--- NOTE | 2022-03-13 21:10 | P.PN ---
Subjective This is a 67 year old male with recent diagnosis of metastatic adenocarcinoma of right lung, status post craniotomy, hypertension, gastroesophageal reflux disease, COPD, paralyzed vocal chords, chronic nicotine use, chronic alcohol use, recent left humerous fracture with no surgical intervention has been using immobility sling to left arm. [facility] of breath and hypoxia. He has been at [facility] for sub acute rehab since last admission. He is a poor history and is significantly short of breath when talking. He was initially placed on non rebreather in the EC and transitioned to BiPAP, he is currently on hi flow cannula. He was found to have hemoglobin of 6.2 and is currently receiving 2 units of packed red blood cells. Patient had brain CT completed on admission showing interval right parietal craniotomy flap with CSF density sliver of extra-axial fluid underlying the craniotomy flap measuring 5 mm thick, with a 1.4 cm area of focal hypodensity within the right parietal lobe at the site of previous 2.0 cm parenchymal lesion. Possible posttreatment change. Similar 1.3 cm mid right paramedian parenchymal lesion continues to have some mass effect at the roof of the right lateral ventricle. Prominent white matter hypodensity continues throughout the right frontal and parietal lobes. There is no acute intracranial hemorrage. Patient had D-Dimer of 3.[address] angiography was done showing consolidation and volume loss entire left lower lobe, pneumonia versus mucous impaction. There is right upper lobe mass enlarged from previous imaging, there is also adjacent smaller right upper lobe mass and a third spiculated lesion along the minor fissure is relatively similar at 2.4 cm. Possible esophagitis. Patient presents with white count 12.9, hgb 6.3. Lactic acidosis at 13.6. He does have troponin elevation. Urine showing trace protein, trace blood, large le ukocyte esterase. Urine culture pending. Patient is admitted to intensive care unit and started on empiric antibiotic coverage with IV azithromycin, IV cefepime, IV vancomycin. He required precedex overnight for some acute agitation and dyspnea which is currently discontinued. He has haldol as needed for acute aggitation currently. He is also requiring levophed for an initial blood pressure in the 70s systolic and currently attempting to wean. His blood pressure currently is 101/62. Patient has been weaned off BiPAP and is currently on 13 L High Flow cannula with oxygen saturation of 100%. He did have a temperature of 101.1 during the evening. Patient is being hydrated with normal saline. Follow up chest xray this morning showing COPD with known lung mass. Lactic acid has improved with fluid resuscitation, has received 2L fluid bolus. 03/08/2022 Patient is evaluated in follow up in the intensive care unit, currently has sitter at the bedside. Has been less agitated. He is alert x2 today, and more awake. He is less short of breath, able to carry on a conversation. Was able to talk with patients daughter mya this morning who is the DPOA. Per Mya patient had seizure like activity at [facility] and from there was brought to [facility] and was found to have brain lesion and underwent craniotomy this was done about 2 to 3 weeks ago and from hospital was brought back to [facility] to continue with rehab. He was at orthopedics and was significant short of breath and brought to the hospital. This was his initial follow up at since being discharge to [facility] with left humerus fracture. Oxygen has been weaned down to 9 L high flow cannula with oxygen saturation 93% and hopeful he will be able to be further weaned today. he continues to maintain blood pressure 120s systolic off pressor support. Continues on empiric antibiotic coverage with IV cefepime, IV levaquin. Continues on IV solumedrol, started on bicarb gtt. 03/09/2022 Patient improving slightly and gradually He states his breathing is slightly better for the same, he states he can walk to the bathroom with no exertional dyspnea but patient was some tachypnea when talking. Positive cough with no phlegm. No chest pain. No headache or neurological symptoms. No more seizure-like activity Patient remains on IV Levaquin and cefepime Probasco stoning elevated 14.7 CT of the brain showing right partial craniectomy with right parenchymal 1.4 and 1.3 densities suspicious for metastatic disease. Patient is currently DO NOT RESUSCITATE Remains also on steroids prednisone 40 mg and sodium bicarb and Keppra 03/10/2022 Patient lying in bed comfortable with no significant symptoms, is awake and alert and oriented, ex- at bedside N and patient's vision to discuss his health care with her. Patient and are aware of patient diagnosis of lung cancer with metastasis to the brain. She confirmed to me that patient is going to follow up with . also was an outpatient and radiation oncologist and she is going to follow up when he goes to rehab to make sure he will see his doctors upon discharge. Midline and placed remains on Levaquin and cefepime Prednisone 40 mg till 03/12 per pleating supervisor. Continue with Gumaro. 03/11/2022 Patient improving slowly and gradually, is generally weak. Her last dose of prednisone. His urine cultures: ESBL E. coli, antibiotics were adjusted with Invanz. We will consult ID team for further recommendation pending discharge. Patient and ex-, plan are aware with the need for outpatient follow-up with Dr. weller Patient has peripheral line rather than midline, which was ordered. Patient has urinary incontinence. Bladder scan checked yesterday was 150+, today it was 241. No need for Guillen catheter for now. 03/12/2022 Patient feels very weak today and he does not feel he is ready to go to rehab/ECF today and he will was asked to stay in the hospital for now. The most active problem is ESBL E. coli UTI, currently patient is on Invanz Other than no chest pain or dyspnea or abdominal pain Glucose controlled Plan after discussed with the patient and ex- Radha already Hospital discharge in 24-48 hours 03/13/2022 Patient is chronically debilitated and weak related to his metastatic and advanced cancer. No other new complaints he is awake and alert. He is hemodynamically stable Repeat urine analysis is negative He remains on Invanz. Pulmonary team signed off the case Possible discharge in 24-48 hours Objective - Vital Signs Vital signs: Vital Signs Temp 97.4 F L 03/13/22 15:00 Pulse 62 03/13/22 15:00 Resp 18 03/13/22 15:00 BP 108/62 03/13/22 15:00 Pulse Ox 96 03/13/22 15:00 FiO2 100 03/08/22 07:42 Intake & Output 03/13/22 03/13/22 03/14/22 06:59 18:59 06:59 Intake Total 478 Balance 478 Weight 66.5 kg Intake: Oral 478 Other: Voiding Method Urinal Urinal Diaper Diaper Incontinent Incontinent # Voids 4 - Exam -GENERAL: The patient is alert and oriented x3, not in any acute distress. Well developed, well nourished. Patient is weak and lethargic HEENT: Pupils are round and equally reacting to light. EOMI. No scleral icterus. No conjunctival pallor. Normocephalic, atraumatic. No pharyngeal erythema. No thyromegaly. CARDIOVASCULAR: S1 and S2 present. No murmurs, rubs, or gallops. -PULMONARY: Chest is clear to auscultation, no wheezing . Tachypnea with bilateral crepitation ABDOMEN: Soft, nontender, nondistended, normoactive bowel sounds. No palpable organomegaly. MUSCULOSKELETAL: No joint swelling or deformity. EXTREMITIES: No cyanosis, clubbing, or pedal edema. NEUROLOGICAL: Gross neurological examination did not reveal any focal deficits. SKIN: No rashes. no petechiae. - Labs CBC & Chem 7: 03/11/22 05:53 03/11/22 05:53 Labs: Abnormal Lab Results - Last 24 Hours (Table) 03/13/22 03/13/22 Range/Units 00:09 19:56 POC Glucose (mg/dL) 123 H 115 H (70-110) mg/dL Microbiology - Last 24 Hours (Table) 03/06/22 15:53 Blood Culture - Final Blood No Growth after 144 hours 03/06/22 15:53 Blood Culture - Final Blood No Growth after 144 hours Assessment and Plan Assessment: ESBL E. coli Acute hypoxic respiratory failure from COPD and left lower lobe pneumonia, improving Left lower lobe pneumonia with sepsis present on admission . Improved Septic shock requiring vasopressor support currently maintaining blood pressures off pressor support Recent diagnosis metastatic adenocarcinoma of right lung Brain metastasis post craniotomy History of seizure activity Acute on chronic anemia status post 3 units packed red blood cells Elevated D-Dimer, CTA negative for pulmonary embolism Troponin elevation, possible troponin leak from sepsis Lactic acidosis Recent left humerus fracture with no surgical repair has been using sling History of COPD History gastroesophageal reflux disease History of vocal cord paralysis Hypertension history currently normotensive Anemia of chronic disease History of chronic alcohol use Chronic tobacco use Plan: Patient will need follow-up with Dr. weller as outpt. Patient unconscious upon discharge in 1-2 weeks, this information was relayed to the patient and his ex- Radha at bedside and they are agreeable Continue with antibiotics Invanz with ID team on the case Pulmonary input is appreciated and they signed off the case Continue with prednisone 40 mg Continue with Keppra DVT prophylaxis: Lovenox GI prophylaxis Pepcid
[2022-03-14 07:13] LABS: Glucose,Whole Blood 95 mg/dL (70-110)
[2022-03-14 07:32] LABS: Glucose,Whole Blood 95 mg/dL (70-110)
[2022-03-14] MEDS: FAMOTIDINE 20 MG/2 ML VIAL IV SCH ×2 (09:31→20:18)
[2022-03-14] MEDS: ENOXAPARIN 40 MG/0.4 ML SYRINGE SQ SCH (09:31)
[2022-03-14] MEDS: levETIRAcetam 500 MG TAB PO SCH ×2 (09:31→20:18)
[2022-03-14] MEDS: ERTAPENEM 1 GM in SODIUM CHLORIDE 0.9% 50 ML IVPB SCH (09:31)
[2022-03-14 12:16] LABS: Glucose,Whole Blood 120 mg/dL (70-110)
--- NOTE | 2022-03-14 14:26 | P.DS ---
Providers Date of admission: 03/06/22 17:01 Attending physician: Corwin Santoyo Consults: 03/06/22 17:01 Consult Physician Stat Consulting Provider: Harmony Chatman Consult Reason/Comments: Pneumonia, pleural effusion, sepsis Do you want consulting provider notified?: Yes 03/11/22 20:08 Consult Physician Routine Consulting Provider: Viry Blue Consult Reason/Comments: ESBL e coli Do you want consulting provider notified?: Yes, Notify in am Primary care physician: See Bearden [facility] Course: Diagnoses: ESBL E. coli urinary tract infection, completely resolved and patient is as symptomatic and repeat urine analysis is normal. Acute hypoxic respiratory failure from COPD and left lower lobe pneumonia, improving Left lower lobe pneumonia with sepsis present on admission . Improved Septic shock requiring vasopressor support currently maintaining blood pressures off pressor support Recent diagnosis metastatic adenocarcinoma of right lung Brain metastasis post craniotomy History of seizure activity Acute on chronic anemia status post 3 units packed red blood cells Elevated D-Dimer, CTA negative for pulmonary embolism Troponin elevation, possible troponin leak from sepsis Lactic acidosis Recent left humerus fracture with no surgical repair has been using sling History of COPD History gastroesophageal reflux disease History of vocal cord paralysis Hypertension history currently normotensive Anemia of chronic disease History of chronic alcohol use Chronic tobacco use Hospital course: This is a 67 year old male with recent diagnosis of metastatic adenocarcinoma of right lung, status post craniotomy, hypertension, gastroesophageal reflux disease, COPD, paralyzed vocal chords, chronic nicotine use, chronic alcohol use, recent left humerous fracture with no surgical intervention has been using immobility sling to left arm. [facility] breath and hypoxia. He has been at [facility] for sub acute rehab since last admission. 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 He was treated with IV antibiotic with Levaquin and cefepime and he showed interval improvement and patient breathing is back to baseline. Patient has been eroded by pulmonary service who cleared him for discharge. Patient remains on room air Also patient has evidence of ESBL UTI, this has been efficiently treated with enzymes and repeat urinalysis is normal. Patient is as symptomatic. No need for IV antibiotics upon discharge per infectious disease team for follow-up of the case closely. On the day of discharge patient awakened alert and stable for more than 72 hours with no deterioration in his clinical condition. No headache or new neurological deficit like no weakness or numbness. No fever. No chest pain or worsening dyspnea. No vomiting or diarrhea or abdominal pain. No dysuria or urgency. Patient was cleared for discharge by pulmonary and infectious disease team. However patient is debilitated and generally weak related to his advanced cancer disease. His prognosis is guarded I discussed with the patient and his ex- Radha about the need for close follow-up with Dr. also for his metastatic lung cancer on both patient and his ex- verbalized understanding and acceptance and she told me she will make sure he will get close follow-up. Risks and benefits are explained. Problems and management plan were discussed with the patient and he verbalized understanding and acceptance Patient was found stable and can be discharged to [facility] in guarded prognosis however he needs follow-up as an outpatient. Patient was instructed to follow up with PCP within one week and patient agrees Patient will need an appointment with Dr. Wild, and patient was instructed with his expose with the same as above. An appointment made for him with Dr. Wild on 03/21/22 patient and his sister Celina at bedside performed patient (agreed to me to talk to his sister about his cancer and plan). Patient and his sister agree with this plan. Patient will be discharged once a Place found for him for rehab, social welfare research worker on the case Physical exam Gen: patient is a AAOx3, no distress. Generally weak CVS: S1-S2, RRR, no murmur Lungs: B/L CTA, no wheezing Abdomen: soft, no distention, no tenderness, positive bowel sounds Extremity: no leg edema or induration Neuro: No known focal neurological deficits. Cranial nerves grossly intact. Sensation intact. Strength is symmetrical in all 4 extremities. Meningeal signs are absent Time spent more than 35 minutes Plan - Discharge Summary New Discharge Prescriptions: Continue Omeprazole 20 mg PO DAILY@0600 HYDROcodone/APAP 7.5-325MG [[place] 7.5-325] 1 tab PO Q4H PRN PRN Reason: Pain levETIRAcetam [Keppra] 500 mg PO Q12HR@0900,2100 Calcium Carbonate [Tums] 500 mg PO Q4H PRN PRN Reason: acid reflux Changed polyethylene glycoL 3350 [Miralax] 17 gm PO DAILY@0900 PRN #0 PRN Reason: Constipation Discontinued LORazepam [Ativan] 0.5 mg PO HS@2100 traMADol HCl [Ultram] 50 mg PO BID PRN PRN Reason: Pain lisinopriL [Zestril] 10 mg PO DAILY@0900 dexAMETHasone 2 mg PO BID@0900,2100 amLODIPine [Norvasc] 7.5 mg PO DAILY@0900 Discharge Medication List HYDROcodone/APAP 7.5-325MG [[place] 7.5-325] 1 tab PO Q4H PRN 02/13/22 [History] Calcium Carbonate [Tums] 500 mg PO Q4H PRN 03/06/22 [History] Omeprazole 20 mg PO DAILY@0600 03/06/22 [History] levETIRAcetam [Keppra] 500 mg PO Q12HR@0900,2100 03/06/22 [History] polyethylene glycoL 3350 [Miralax] 17 gm PO DAILY@0900 PRN #0 03/14/22 [Rx] Follow up Appointment(s)/Referral(s): Virginia Wild MD [STAFF PHYSICIAN] - 03/21/22 4:00 pm See Plata III, MD [Primary Care Provider] - 1-2 days Discharge Disposition: TRANSFER TO SNF/ECF
[2022-03-14] MEDS: CALCIUM CARBONATE 500 MG CHEWABLE PO PRN (14:34)
[2022-03-14 17:23] LABS: Glucose,Whole Blood 106 mg/dL (70-110)
[2022-03-14 21:09] LABS: Glucose,Whole Blood 98 mg/dL (70-110)
--- NOTE | 2022-03-15 07:32 | P.PN ---
Subjective Progress Note Date: 03/13/22 Principal diagnosis: ESBL E. coli UTI Patient is a 67 year old male presenting to the hospital mental status and shortness of breath patient did have a fever and the patient did have a CT of the chest wall and also concentration warm and the left lower lobe and the patient urine chem a positive with ESBL E. coli. On today's evaluation that is 03/13/2022, the patient denies having any fever or any chills is currently breathing comfortably denies any chest pain occasional cough no abdominal pain no diarrhea Objective - Vital Signs Vital signs: Vital Signs Temp 97.5 F L 03/13/22 08:30 Pulse 64 03/13/22 08:30 Resp 19 03/13/22 08:30 BP 137/69 03/13/22 08:30 Pulse Ox 92 L 03/13/22 08:30 FiO2 100 03/08/22 07:42 Intake & Output 03/12/22 03/13/22 03/13/22 18:59 06:59 18:59 Weight 66.5 kg Other: Voiding Method Indwelling Catheter Urinal Diaper Incontinent - Exam GENERAL DESCRIPTION: An elderly male lying in bed in no distress RESPIRATORY SYSTEM: Unlabored breathing , decreased breath sounds at bases HEART: S1 S2 regular rate and rhythm , ABDOMEN: Soft , no tenderness EXTREMITIES: No edema feet - Labs CBC & Chem 7: 03/11/22 05:53 03/11/22 05:53 Labs: Abnormal Lab Results - Last 24 Hours (Table) 03/12/22 03/13/22 Range/Units 17:32 00:09 POC Glucose (mg/dL) 149 H 123 H (70-110) mg/dL Microbiology - Last 24 Hours (Table) 03/06/22 15:53 Blood Culture - Final Blood No Growth after 144 hours 03/06/22 15:53 Blood Culture - Final Blood No Growth after 144 hours Assessment and Plan (1) UTI due to extended-spectrum beta lactamase (ESBL) producing Escherichia coli Current Visit: Yes Status: Acute Code(s): N39.0 - URINARY TRACT INFECTION, SITE NOT SPECIFIED; B96.29 - OTH ESCHERICHIA COLI THE CAUSE OF DISEASES CLASSD ELSWHR; Z16.12 - EXTENDED SPECTRUM BETA LACTAMASE (ESBL) RESISTANCE SNOMED Code(s): 376230365 Plan: 1patient is 67 male with a past medical he significant for metastatic lung cancer presented to hospital with increasing shortness of breath patient did have a CT angiogram of the chest negative for PE did shows a volume loss and consolidation left lower lobe and concerning for possible pneumonia as the patient have elevated procalcitonin. 2patient with a positive urine culture with ESBL E. coli no significant abdominal tenderness very mild urinary symptoms possible cystitis. 3obtain a sputum for gram stain culture and we will repeat his urine culture. 4patient to continue with Invanz 1 g daily while waiting for the repeat UA to be obtained RN instructed to straight cath if needed Time with Patient: Less than 30
--- NOTE | 2022-03-15 07:34 | P.PN ---
Subjective Progress Note Date: 03/14/22 Principal diagnosis: ESBL E. coli UTI Patient is a 67 year old male presenting to the hospital mental status and shortness of breath patient did have a fever and the patient did have a CT of the chest consolidation left lower lobe and the patient urine chem a positive with ESBL E. coli. On today's evaluation that is 03/14/2022, the patient remains to be afebrile, the patient is breathing comfortably on room air, the patient denies any chest pain occasional cough no abdominal pain no diarrhea Objective - Vital Signs Vital signs: Vital Signs Temp 97.4 F L 03/14/22 06:17 Pulse 63 03/14/22 06:17 Resp 19 03/14/22 06:17 BP 120/73 03/14/22 06:17 Pulse Ox 96 03/14/22 06:17 FiO2 100 03/08/22 07:42 Intake & Output 03/13/22 03/14/22 03/14/22 18:59 06:59 18:59 Intake Total 478 Balance 478 Weight 66.5 kg Intake: Oral 478 Other: Voiding Method Urinal Urinal Diaper Diaper Incontinent Incontinent # Voids 4 1 - Exam GENERAL DESCRIPTION: An elderly male lying in bed in no distress RESPIRATORY SYSTEM: Unlabored breathing , decreased breath sounds at bases HEART: S1 S2 regular rate and rhythm , ABDOMEN: Soft , no tenderness EXTREMITIES: No edema feet - Labs CBC & Chem 7: 03/11/22 05:53 03/11/22 05:53 Labs: Abnormal Lab Results - Last 24 Hours (Table) 03/13/22 Range/Units 19:56 POC Glucose (mg/dL) 115 H (70-110) mg/dL Assessment and Plan (1) UTI due to extended-spectrum beta lactamase (ESBL) producing Escherichia coli Current Visit: Yes Status: Acute Code(s): N39.0 - URINARY TRACT INFECTION, SITE NOT SPECIFIED; B96.29 - OTH ESCHERICHIA COLI THE CAUSE OF DISEASES CLASSD ELSWHR; Z16.12 - EXTENDED SPECTRUM BETA LACTAMASE (ESBL) RESISTANCE SNOMED Code(s): 960956206 Plan: 1patient is 67 male with a past medical he significant for metastatic lung cancer presented to hospital with increasing shortness of breath patient did have a CT angiogram of the chest negative for PE did shows a volume loss and consolidation left lower lobe and concerning for possible pneumonia as the patient have elevated procalcitonin. 2patient with a positive urine culture with ESBL E. coli no significant abdominal tenderness very mild urinary symptoms possible cystitis. 3obtain a sputum for gram stain culture and we will repeat his urine culture. 4patient repeat UA is negative patient has received adequate antibiotic therapy for underlying UTI and also for possible pneumonia as the patient has received about 10 days of antibiotic should be more than enough Time with Patient: Less than 30
[2022-03-15 07:47] LABS: Glucose,Whole Blood 88 mg/dL (70-110)
[2022-03-15 08:42] VITALS: BP 124/66; PULSE 68; RESP 18; TEMP 97.9
[2022-03-15] MEDS: ENOXAPARIN 40 MG/0.4 ML SYRINGE SQ SCH (08:47)
[2022-03-15] MEDS: levETIRAcetam 500 MG TAB PO SCH (08:47)
[2022-03-15] MEDS: FAMOTIDINE 20 MG/2 ML VIAL IV SCH (08:47)
[2022-03-15] MEDS: ERTAPENEM 1 GM in SODIUM CHLORIDE 0.9% 50 ML IVPB SCH (08:48)
--- NOTE | 2022-03-15 10:21 | P.DS ---
Providers Date of admission: 03/06/22 17:01 Attending physician: Corwin Santoyo Consults: 03/06/22 17:01 Consult Physician Stat Consulting Provider: Harmony Chatman Consult Reason/Comments: Pneumonia, pleural effusion, sepsis Do you want consulting provider notified?: Yes 03/11/22 20:08 Consult Physician Routine Consulting Provider: Viry Blue Consult Reason/Comments: ESBL e coli Do you want consulting provider notified?: Yes, Notify in am Primary care physician: See Bearden [facility] Course: Diagnoses: ESBL E. coli urinary tract infection, completely resolved and patient is as symptomatic and repeat urine analysis is normal. Acute hypoxic respiratory failure from COPD and left lower lobe pneumonia, improving Left lower lobe pneumonia with sepsis present on admission . Improved Septic shock requiring vasopressor support currently maintaining blood pressures off pressor support Recent diagnosis metastatic adenocarcinoma of right lung Brain metastasis post craniotomy History of seizure activity Acute on chronic anemia status post 3 units packed red blood cells Elevated D-Dimer, CTA negative for pulmonary embolism Troponin elevation, possible troponin leak from sepsis Lactic acidosis Recent left humerus fracture with no surgical repair has been using sling History of COPD History gastroesophageal reflux disease History of vocal cord paralysis Hypertension history currently normotensive Anemia of chronic disease History of chronic alcohol use Chronic tobacco use Hospital course: This is a 67 year old male with recent diagnosis of metastatic adenocarcinoma of right lung, status post craniotomy, hypertension, gastroesophageal reflux disease, COPD, paralyzed vocal chords, chronic nicotine use, chronic alcohol use, recent left humerous fracture with no surgical intervention has been using immobility sling to left arm. [facility] and hypoxia. He has been at [facility] for sub acute rehab since last admission. 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 He was treated with IV antibiotic with Levaquin and cefepime and he showed interval improvement and patient breathing is back to baseline. Patient has been eroded by pulmonary service who cleared him for discharge. Patient remains on room air Also patient has evidence of ESBL UTI, this has been efficiently treated with enzymes and repeat urinalysis is normal. Patient is as symptomatic. No need for IV antibiotics upon discharge per infectious disease team for follow-up of the case closely. On the day of discharge patient awakened alert and stable for more than 72 hours with no deterioration in his clinical condition. No headache or new neurological deficit like no weakness or numbness. No fever. No chest pain or worsening dyspnea. No vomiting or diarrhea or abdominal pain. No dysuria or urgency. Patient was cleared for discharge by pulmonary and infectious disease team. However patient is debilitated and generally weak related to his advanced cancer disease. His prognosis is guarded I discussed with the patient and his ex- Radha about the need for close follow-up with Dr. also for his metastatic lung cancer on both patient and his ex- verbalized understanding and acceptance and she told me she will make sure he will get close follow-up. Risks and benefits are explained. Problems and management plan were discussed with the patient and he verbalized understanding and acceptance Patient was found stable and can be discharged to [facility] in guarded prognosis however he needs follow-up as an outpatient. Patient was instructed to follow up with PCP within one week and patient agrees Patient will need an appointment with Dr. Wild, and patient was instructed with his expose with the same as above. An appointment made for him with Dr. Wild on 03/21/22 patient and his sister Celina at bedside performed patient (agreed to me to talk to his sister about his cancer and plan). Patient and his sister agree with this plan. Patient will be discharged once a Place found for him for rehab, healthcare social worker on the case patient does not need any pain medication on discharge as he was taken none over the last few days. Patient confirmed to me he is not in pain Patient does not need antibiotics upon discharge per ID team. Currently he is not on any antibiotics. Today 03/15 patient remembers his appointment with Dr. Wild this coming Wednesday 03/21 and he told me the same. he is willing to follow Physical exam Gen: patient is a AAOx3, no distress. Generally weak CVS: S1-S2, RRR, no murmur Lungs: B/L CTA, no wheezing Abdomen: soft, no distention, no tenderness, positive bowel sounds Extremity: no leg edema or induration Neuro: No known focal neurological deficits. Cranial nerves grossly intact. Sensation intact. Strength is symmetrical in all 4 extremities. Meningeal signs are absent Time spent more than 35 minutes Plan - Discharge Summary New Discharge Prescriptions: Continue Omeprazole 20 mg PO DAILY@0600 levETIRAcetam [Keppra] 500 mg PO Q12HR@0900,2100 Calcium Carbonate [Tums] 500 mg PO Q4H PRN PRN Reason: acid reflux Changed polyethylene glycoL 3350 [Miralax] 17 gm PO DAILY@0900 PRN #0 PRN Reason: Constipation Discontinued LORazepam [Ativan] 0.5 mg PO HS@2100 traMADol HCl [Ultram] 50 mg PO BID PRN PRN Reason: Pain lisinopriL [Zestril] 10 mg PO DAILY@0900 dexAMETHasone 2 mg PO BID@0900,2100 HYDROcodone/APAP 7.5-325MG [[place] 7.5-325] 1 tab PO Q4H PRN PRN Reason: Pain amLODIPine [Norvasc] 7.5 mg PO DAILY@0900 Discharge Medication List Calcium Carbonate [Tums] 500 mg PO Q4H PRN 03/06/22 [History] Omeprazole 20 mg PO DAILY@0600 03/06/22 [History] levETIRAcetam [Keppra] 500 mg PO Q12HR@0900,2100 03/06/22 [History] polyethylene glycoL 3350 [Miralax] 17 gm PO DAILY@0900 PRN #0 03/14/22 [Rx] Follow up Appointment(s)/Referral(s): Virginia Wild MD [STAFF PHYSICIAN] - 03/21/22 4:00 pm See Plata III, MD [Primary Care Provider] - 1-2 days Activity/Diet/Wound Care/Special Instructions: Regular diet Activity as tolerated ++ we recommend patient to be evaluated for DVT prophylasxis in the ECF rehab as per rehab physician Discharge Disposition: TRANSFER TO SNF/ECF
[2022-03-15 11:36] LABS: Glucose,Whole Blood 115 mg/dL (70-110)
== END 2022-03-15 12:20 | DRG 871 ==
LOC: EC 14:01 → 2SICU 17:01 → 6NMEDSUR 03-09 16:49
PROVIDERS: ADMIT Hospitalist; ATTEND Hospitalist
PROC: 5A09357 Assistance with Respiratory Ventilation, Less than 24 Consecutive Hours, Continuous Positive Airway Pressure (ICD-10-PCS; 2022-03-06)
PROC: 30233N1 Transfusion of Nonautologous Red Blood Cells into Peripheral Vein, Percutaneous Approach (ICD-10-PCS; 2022-03-06)
PROC: 3E033XZ Introduction of Vasopressor into Peripheral Vein, Percutaneous Approach (ICD-10-PCS; principal; 2022-03-07)
PROC: 06HM33Z Insertion of Infusion Device into Right Femoral Vein, Percutaneous Approach (ICD-10-PCS; 2022-03-07)
PROC: 05HB33Z Insertion of Infusion Device into Right Basilic Vein, Percutaneous Approach (ICD-10-PCS; 2022-03-09)
DX: A41.9 Sepsis, unspecified organism (principal); J18.9 Pneumonia, unspecified organism; J96.01 Acute respiratory failure with hypoxia; R65.21 Severe sepsis with septic shock; E87.21 Acute metabolic acidosis; J44.0 Chronic obstructive pulmonary disease with (acute) lower respiratory infection; C34.11 Malignant neoplasm of upper lobe, right bronchus or lung; C79.31 Secondary malignant neoplasm of brain; R64 Cachexia; N39.0 Urinary tract infection, site not specified; Z16.12 Extended spectrum beta lactamase (ESBL) resistance; J38.00 Paralysis of vocal cords and larynx, unspecified; R56.9 Unspecified convulsions; F10.21 Alcohol dependence, in remission; Z66 Do not resuscitate; Z20.822 Contact with and (suspected) exposure to COVID-19; Z28.311 Partially vaccinated for COVID-19; B96.20 Unspecified Escherichia coli [E. coli] as the cause of diseases classified elsewhere; D63.0 Anemia in neoplastic disease; I10 Essential (primary) hypertension; F41.9 Anxiety disorder, unspecified; K21.9 Gastro-esophageal reflux disease without esophagitis; R32 Unspecified urinary incontinence; R77.8 Other specified abnormalities of plasma proteins; S42.211D Unspecified displaced fracture of surgical neck of right humerus, subsequent encounter for fracture with routine healing; F17.200 Nicotine dependence, unspecified, uncomplicated; Z79.899 Other long term (current) drug therapy; Z79.52 Long term (current) use of systemic steroids; Z78.1 Physical restraint status; Z86.16 Personal history of COVID-19; Z85.828 Personal history of other malignant neoplasm of skin
CPT/HCPCS: 36410; 36415; 36600; 70450; 71045; 71275; 76937; 80048; 80053; 81001; 81003; 82805; 83605; 83735; 83880; 84132; 84145; 84484; 85025; 85027; 85379; 85610; 85730; 86850; 86900; 86901; 86920; 87040; 87077; 87086; 87186; 87635; 93005; 94660; 94760; 96361; 96365; 96375; 99291

== ENCOUNTER 2022-03-16 21:01 | Inpatient (IN) | payer MEDICARE ==
[2022-03-16] MEDS ORDERED: IPRATROPIUM-ALBUTEROL 3 ML NEB INHALATION STA (21:19)
[2022-03-16] MEDS ORDERED: methylPREDNISolone SOD SUCCI 125 MG/2 ML VIAL IV STA (21:19)
[2022-03-16] MEDS ORDERED: SODIUM CHLORIDE 0.9% 500 ML 500 ML IV STA (21:19)
[2022-03-16 22:34] LABS: VBG PH 7.44 (7.31-7.41)
--- NOTE | 2022-03-16 22:42 | ED ---
General Adult HPI - General Chief complaint: Shortness of Breath Stated complaint: YUDI Time Seen by Provider: 03/16/22 21:12 Source: patient, EMS, RN notes reviewed, old records reviewed Mode of arrival: EMS Limitations: no limitations - History of Present Illness Initial comments: Patient is a 67-year-old male with past medical history remarkable for m etastatic lung cancer, COPD, hypertension who presents emergency Department after there was concern at his nursing facility for increased work of breathing and oxygen saturations. They put him on BiPAP. He was transferred on BiPAP/CPAP. Upon arrival here, she was still on BiPAP and saturating 100%. Respiratory was quickly able to wean him down to 2 L nasal cannula and is still oxygenating at 100% and is in no respiratory distress. Patient states he feels fine and is not sure why they brought him here so quickly. Denies chest pain or shortness of breath. Was treated for pneumonia recently here in the discharged to his facility. He was also treated for a UTI and had septic shock at that time. Was discharged yesterday, and repeat presents today for the shortness of breath. 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 Is fully alert and oriented. Denies chest pain, shortness breath, abdominal pain, nausea, vomiting. Denies any worsening lower extremity edema. Denies cough. Has no other acute complaints at this time. Presents for further evaluation of concern for his respiratory status. - Related Data Home Medications Medication Instructions Recorded Confirmed Calcium Carbonate [Tums] 500 mg PO Q4H PRN 03/06/22 03/06/22 Omeprazole 20 mg PO DAILY@0600 03/06/22 03/06/22 levETIRAcetam [Keppra] 500 mg PO Q12HR@0900,2100 03/06/22 03/06/22 Previous Rx's Medication Instructions Recorded polyethylene glycoL 3350 [Miralax] 17 gm PO DAILY@0900 PRN #0 03/14/22 Allergies Allergy/AdvReac Type Severity Reaction Status Date / Time No Known Allergies Allergy Verified 03/16/22 21:11 Review of Systems ROS Statement: Those systems with pertinent positive or pertinent negative responses have been documented in the HPI. Review of Systems: CONST: Denies fever EYES: Denies blurry vision ENT: Denies nasal congestion C/V: Denies Chest pain RESP: Denies shortness of breath GI: Denies abdominal pain : Denies dysuria SKIN: Denies rash. MSK: Denies joint pain. NEURO: Denies headache ROS Other: All systems not noted in ROS Statement are negative. Past Medical History Past Medical History: Cancer, GERD/Reflux, Hypertension Additional Past Medical History / Comment(s): paralyzed vocal cord, SKIN CANCER(FACE), metastatic adenocarcinoma of the right lung History of Any Multi-Drug Resistant Organisms: ESBL Date of last positivie culture/infection: 03/06/22 ESBL E.coli MDRO Source:: Urine Past Surgical History: Orthopedic Surgery Additional Past Surgical History / Comment(s): triple endoscopy, LT KNEE SCOPE, LT KNEE MENISCUS SX Past Anesthesia/Blood Transfusion Reactions: No Reported Reaction Additional Past Anesthesia/Blood Transfusion Reaction / Comment(s): . Past Psychological History: No Psychological Hx Reported Smoking Status: Current every day smoker Past Alcohol Use History: None Reported Past Drug Use History: None Reported - Past Family History Father Family Medical History: Congestive Heart Failure (CHF), Myocardial Infarction ([place]) Mother Family Medical History: No Reported History Additional Family Medical History / Comment(s): MOM IS IN GOOD HEALTH AT AGE 96 General Exam - General Exam Comments Initial Comments: General: Appears in no acute distress. Patient is cachectic. HEAD: Normal with no signs of head trauma. EYES: PERRLA, EOMI, conjunctiva normal, no discharge. ENT: Hearing grossly intact, normal oropharynx. RESPIRATORY: Bilateral end expiratory wheezing. Minimal if any increased work of breathing. No hypoxia on 2 L nasal cannula. C/V: Regular rate and rhythm. S1 and S2 auscultated, no edema, peripheral pulses 2+ and intact throughout ABD: Abd is soft, nontender, nondistended EXT: Normal range of motion, no obvious deformity SKIN: No rashes or lesions observed on exposed skin. NEURO: Alert and oriented 4. Chronic weakness. Limitations: no limitations Course Vital Signs 03/16/22 03/16/22 03/16/22 21:03 21:30 21:40 Temperature 98.8 F Pulse Rate 85 86 81 Respiratory 28 H Rate Blood Pressure 148/85 O2 Sat by Pulse 100 Oximetry 03/16/22 03/17/22 03/17/22 21:41 00:06 03:23 Temperature 98.9 F Pulse Rate 80 73 86 Respiratory 24 18 20 Rate Blood Pressure 126/81 146/95 149/94 O2 Sat by Pulse 100 99 98 Oximetry Medical Decision Making - Medical Decision Making Based on The patient's presentation and physical exam, I'm concerned for COPD exacerbation as well as upper respiratory illness for the patient. We will obtain cardiopulmonary laboratory studies, chest x-ray, EKG. He appears to be hemodynamically stable and in no respiratory distress and we will continue to wean him off oxygen. He does not believe he is on oxygen at the facility. Has no acute complaints at this time. According to the paperwork from the facility, patient is a DO NOT RESUSCITATE. I did discuss with him we may be admitting him for observation and he was in agreement this plan. EKG shows no signs of acute ischemia.Patient's chest x-ray shows signs rachelle rning for increasing right lower lobe consolidation and pleural fluid. Right upper lobe mass is unchanged. There is also mild left lower interstitial infiltrate that is improved. Concern for pneumonia. Laboratory studies are remarkable for a chronic normocytic anemia with a hemoglobin of 10.1 which is improved from prior visit. Initial potassium was hemolyzed, repeat is within normal limits. Lactic acid is within normal limits. Troponin is indeterminate. Covid influenza negative. Urine is pending at this time. On reevaluation, patient's wheezing is improved. Vital signs remained within acceptable limits. I discussed with him I would like to admit him and start him on antibiotics for possible pneumonia. Pulmonology can reevaluate him. He was in agreement this plan. Pulmonology was consulted. Oncology was consulted. I spoke with the admitting team, CARISSA Ríos of [facility] accepted the patient. Patient was started on azithromycin and Zosyn for pneumonia, as he was on antibiotics and hospitalized within the last 30 days. We'll continue COPD treatment with IV steroids as well as breathing treatments. Patient was therefore admitted to a telemetry bed in stable condition. - Lab Data Result diagrams: 03/16/22 22:21 03/17/22 00:51 Lab Results 03/16/22 03/16/22 03/16/22 Range/Units 22:21 22:21 22:21 WBC 8.0 (3.8-10.6) k/uL RBC 3.95 L (4.30-5.90) m/uL Hgb 10.1 L (13.0-17.5) gm/dL Hct 31.8 L (39.0-53.0) % MCV 80.6 (80.0-100.0) fL MCH 25.5 (25.0-35.0) pg MCHC 31.6 (31.0-37.0) g/dL RDW 17.9 H (11.5-15.5) % Plt Count 194 (150-450) k/uL MPV 9.0 Neutrophils % 79 % Lymphocytes % 14 % Monocytes % 5 % Eosinophils % 0 % Basophils % 0 % Neutrophils # 6.3 (1.3-7.7) k/uL Lymphocytes # 1.1 (1.0-4.8) k/uL Monocytes # 0.4 (0-1.0) k/uL Eosinophils # 0.0 (0-0.7) k/uL Basophils # 0.0 (0-0.2) k/uL Hypochromasia Marked Poikilocytosis Moderate Anisocytosis Slight Microcytosis Slight PT 10.6 (9.0-12.0) sec INR 1.0 (<1.2) APTT 23.9 (22.0-30.0) sec VBG pH (7.31-7.41) VBG pCO2 (37-51) mmHg VBG HCO3 (24-28) mmol/L Sodium 131 L (137-145) mmol/L Potassium 5.6 H (3.5-5.1) mmol/L Chloride 104 (98-107) mmol/L Carbon Dioxide 21 L (22-30) mmol/L Anion Gap 6 mmol/L BUN 10 (9-20) mg/dL Creatinine 0.45 L (0.66-1.25) mg/dL Est GFR (CKD-EPI)AfAm >90 (>60 ml/min/1.73 sqM) Est GFR (CKD-EPI)NonAf >90 (>60 ml/min/1.73 sqM) Glucose 80 (74-99) mg/dL Plasma Lactic Acid Ivan (0.7-2.0) mmol/L Calcium 7.8 L (8.4-10.2) mg/dL Total Bilirubin 2.2 H (0.2-1.3) mg/dL AST 93 H (17-59) U/L ALT 40 (4-49) U/L Alkaline Phosphatase 83 (38-126) U/L Troponin I (0.000-0.034) ng/mL Total Protein 6.5 (6.3-8.2) g/dL Albumin 3.1 L (3.5-5.0) g/dL Coronavirus (PCR) (Not Detectd) Influenza Type A RNA (Not Detectd) Influenza Type B (PCR) (Not Detectd) 03/16/22 03/16/22 03/16/22 Range/Units 22:21 22:21 22:21 WBC (3.8-10.6) k/uL RBC (4.30-5.90) m/uL Hgb (13.0-17.5) gm/dL Hct (39.0-53.0) % MCV (80.0-100.0) fL MCH (25.0-35.0) pg MCHC (31.0-37.0) g/dL RDW (11.5-15.5) % Plt Count (150-450) k/uL MPV Neutrophils % % Lymphocytes % % Monocytes % % Eosinophils % % Basophils % % Neutrophils # (1.3-7.7) k/uL Lymphocytes # (1.0-4.8) k/uL Monocytes # (0-1.0) k/uL Eosinophils # (0-0.7) k/uL Basophils # (0-0.2) k/uL Hypochromasia Poikilocytosis Anisocytosis Microcytosis PT (9.0-12.0) sec INR (<1.2) APTT (22.0-30.0) sec VBG pH (7.31-7.41) VBG pCO2 (37-51) mmHg VBG HCO3 (24-28) mmol/L Sodium (137-145) mmol/L Potassium (3.5-5.1) mmol/L Chloride (98-107) mmol/L Carbon Dioxide (22-30) mmol/L Anion Gap mmol/L BUN (9-20) mg/dL Creatinine (0.66-1.25) mg/dL Est GFR (CKD-EPI)AfAm (>60 ml/min/1.73 sqM) Est GFR (CKD-EPI)NonAf (>60 ml/min/1.73 sqM) Glucose (74-99) mg/dL Plasma Lactic Acid Ivan 1.2 (0.7-2.0) mmol/L Calcium (8.4-10.2) mg/dL Total Bilirubin (0.2-1.3) mg/dL AST (17-59) U/L ALT (4-49) U/L Alkaline Phosphatase (38-126) U/L Troponin I 0.014 (0.000-0.034) ng/mL Total Protein (6.3-8.2) g/dL Albumin (3.5-5.0) g/dL Coronavirus (PCR) (Not Detectd) Influenza Type A RNA Not Detected (Not Detectd) Influenza Type B (PCR) Not Detected (Not Detectd) 03/16/22 03/16/22 Range/Units 22:21 22:21 WBC (3.8-10.6) k/uL RBC (4.30-5.90) m/uL Hgb (13.0-17.5) gm/dL Hct (39.0-53.0) % MCV (80.0-100.0) fL MCH (25.0-35.0) pg MCHC (31.0-37.0) g/dL RDW (11.5-15.5) % Plt Count (150-450) k/uL MPV Neutrophils % % Lymphocytes % % Monocytes % % Eosinophils % % Basophils % % Neutrophils # (1.3-7.7) k/uL Lymphocytes # (1.0-4.8) k/uL Monocytes # (0-1.0) k/uL Eosinophils # (0-0.7) k/uL Basophils # (0-0.2) k/uL Hypochromasia Poikilocytosis Anisocytosis Microcytosis PT (9.0-12.0) sec INR (<1.2) APTT (22.0-30.0) sec VBG pH 7.44 H (7.31-7.41) VBG pCO2 34 L (37-51) mmHg VBG HCO3 23 L (24-28) mmol/L Sodium (137-145) mmol/L Potassium (3.5-5.1) mmol/L Chloride (98-107) mmol/L Carbon Dioxide (22-30) mmol/L Anion Gap mmol/L BUN (9-20) mg/dL Creatinine (0.66-1.25) mg/dL Est GFR (CKD-EPI)AfAm (>60 ml/min/1.73 sqM) Est GFR (CKD-EPI)NonAf (>60 ml/min/1.73 sqM) Glucose (74-99) mg/dL Plasma Lactic Acid Ivan (0.7-2.0) mmol/L Calcium (8.4-10.2) mg/dL Total Bilirubin (0.2-1.3) mg/dL AST (17-59) U/L ALT (4-49) U/L Alkaline Phosphatase (38-126) U/L Troponin I (0.000-0.034) ng/mL Total Protein (6.3-8.2) g/dL Albumin (3.5-5.0) g/dL Coronavirus (PCR) Not Detected (Not Detectd) Influenza Type A RNA (Not Detectd) Influenza Type B (PCR) (Not Detectd) - EKG Data -: EKG Interpreted by Me EKG Comments: 12-lead Electrocardiogram Interpretation Note EKG was reviewed and interpreted by myself. 12-lead ECG performed at 2147 is interpreted by me as revealing normal sinus rhythm at a rate of 83 beats per minute. [place] is normal. [place] interval is 154 ms, QRS duration is 81 ms, QTc is 394 ms.. There were no ST or T wave abnormalities to suggest myocardial ischemia or injury. R wave progression across the precordium was satisfactory. By my interpretation this EKG is non-diagnostic for acute ischemia. Intermittent PAC. Disposition Clinical Impression: COPD (chronic obstructive pulmonary disease), Pneumonia, Lung cancer Disposition: ADMITTED IP TO THIS HOSP Condition: Stable Time of Disposition: 23:00
--- NOTE | 2022-03-16 22:45 | XR ---
EXAMINATION TYPE: XR chest 1V portable DATE OF EXAM: 03/16/2022 COMPARISON: 03/09/2022 HISTORY: Difficulty breathing TECHNIQUE: Single view FINDINGS: There is blunting of the right costo phrenic angle. There is airspace infiltrate right lowe r lobe. There are chest leads. There is 4.8 cm masslike density in the right upper lobe. There is navi e coarse interstitial infiltrate left lower lobe. No definite heart failure. IMPRESSION: Increasing right lower lobe consolidation and pleural fluid compared to old exam. Right u pper lobe mass without change. Mild left lower lobe interstitial infiltrate is improved slightly.
[2022-03-16 22:47] LABS: ALT 40 U/L (4-49); AST 93 U/L (17-59); African American GFR (CKD) >90 (>60 ml/min/1.73 sqM); Albumin 3.1 g/dL (3.5-5.0); Alkaline Phosphatase 83 U/L (38-126); Anion Gap 6 mmol/L; Blood Urea Nitrogen 10 mg/dL (9-20); Calcium 7.8 mg/dL (8.4-10.2); Carbon Dioxide 21 mmol/L (22-30); Chloride 104 mmol/L (98-107); Glucose 80 mg/dL (74-99); Non-African American GFR(CKD) >90 (>60 ml/min/1.73 sqM); Sodium 131 mmol/L (137-145); Total Bilirubin 2.2 mg/dL (0.2-1.3); Total Protein 6.5 g/dL (6.3-8.2)
[2022-03-16 22:56] LABS: Anisocytosis Slight; Basophils % (A) 0 %; Eosinophils % (A) 0 %; HCT 31.8 % (39.0-53.0); HGB 10.1 gm/dL (13.0-17.5); Hypochromasia Marked; Lymphocytes # (A) 1.1 k/uL (1.0-4.8); Lymphocytes % (A) 14 %; MCH 25.5 pg (25.0-35.0); MCHC 31.6 g/dL (31.0-37.0); MCV 80.6 fL (80.0-100.0); Microcytosis Slight; Monocytes # (A) 0.4 k/uL (0-1.0); Monocytes % (A) 5 %; Neutrophils # (A) 6.3 k/uL (1.3-7.7); Neutrophils % (A) 79 %; Platelet Count 194 k/uL (150-450); Poikilocytosis Moderate; RBC 3.95 m/uL (4.30-5.90); RDW 17.9 % (11.5-15.5)
[2022-03-16 23:08] LABS: Potassium 5.6 mmol/L (3.5-5.1)
[2022-03-16 23:24] LABS: Partial Thromboplastin Time 23.9 sec (22.0-30.0); Prothrombin Time 10.6 sec (9.0-12.0)
[2022-03-16] MEDS ORDERED: PIPERACILLIN-TAZOBACTAM 3.375 GM in SODIUM CHLORIDE 0.9% 100 ML IVPB STA (23:43)
[2022-03-16] MEDS ORDERED: AZITHROMYCIN 500 MG in SODIUM CHLORIDE 0.9% 250 ML IVPB STA (23:43)
[2022-03-16] MEDS ORDERED: PNEUMONIA PROTOCOL UTILIZED 1 EACH MISC PO PRN (23:43)
[2022-03-16] MEDS ORDERED: SODIUM CHLORIDE 0.9% 1,000 ML IV STA (23:49)
[2022-03-17] MEDS ORDERED: IPRATROPIUM-ALBUTEROL 3 ML NEB INHALATION SCH
[2022-03-17] MEDS ORDERED: IPRATROPIUM-ALBUTEROL 3 ML NEB INHALATION PRN (00:32)
[2022-03-17] MEDS: HEPARIN SODIUM,PORCINE/PF 5,000 UNIT/0.5 ML SYRINGE SQ SCH ×3 (00:52→17:22)
[2022-03-17 03:08] LABS: Glucose,Whole Blood 84 mg/dL (70-110)
[2022-03-17 05:48] LABS: Anisocytosis Slight; Basophils # (A) 0.1 k/uL (0-0.2); Basophils % (A) 1 %; Eosinophils % (A) 0 %; HCT 31.5 % (39.0-53.0); HGB 9.9 gm/dL (13.0-17.5); Hypochromasia Marked; Lymphocytes # (A) 1.4 k/uL (1.0-4.8); Lymphocytes % (A) 14 %; MCH 25.7 pg (25.0-35.0); MCHC 31.3 g/dL (31.0-37.0); MCV 82.1 fL (80.0-100.0); Mean Platelet Volume 8.6; Microcytosis Slight; Monocytes # (A) 0.4 k/uL (0-1.0); Monocytes % (A) 4 %; Neutrophils % (A) 80 %; Platelet Count 214 k/uL (150-450); Poikilocytosis Moderate; RBC 3.84 m/uL (4.30-5.90); RDW 17.7 % (11.5-15.5)
[2022-03-17 05:58] LABS: African American GFR (CKD) >90 (>60 ml/min/1.73 sqM); Anion Gap 8 mmol/L; Blood Urea Nitrogen 10 mg/dL (9-20); Calcium 7.7 mg/dL (8.4-10.2); Carbon Dioxide 22 mmol/L (22-30); Chloride 107 mmol/L (98-107); Glucose 86 mg/dL (74-99); Non-African American GFR(CKD) >90 (>60 ml/min/1.73 sqM); Potassium 3.4 mmol/L (3.5-5.1); Sodium 137 mmol/L (137-145)
[2022-03-17] MEDS: IPRATROPIUM-ALBUTEROL 3 ML NEB INHALATION SCH ×4 (07:03→19:57)
[2022-03-17] MEDS: PIPERACILLIN-TAZOBACTAM 3.375 GM in SODIUM CHLORIDE 0.9% 100 ML IVPB SCH ×2 (07:46→17:21)
[2022-03-17] MEDS: methylPREDNISolone SOD SUCCI 40 MG/ML 1 ML VIAL IV SCH ×2 (07:47→20:15)
--- NOTE | 2022-03-17 08:13 | XR ---
EXAMINATION TYPE: XR chest 1V portable DATE OF EXAM: 03/17/2022 CLINICAL HISTORY: Difficulty breathing and pneumonia progress study. TECHNIQUE: Single AP portable upright view of the chest is obtained. COMPARISON: Chest x-ray from one day earlier and older studies FINDINGS: Osseous structures remain demineralized. There is displaced impacted fracture left proxima l humerus redemonstrated correlates with fracture injury January 16. Background chronic emphysematous change with right upper lobe mass strongly suggestive of neoplasm redemonstrated. Persistent bibasila r opacities. Cardiac silhouette size is stable and upper limits of normal. IMPRESSION: Chronic emphysematous change with bibasilar acute infiltrate and/or atelectasis redemonst rated. Right upper lobe mass/neoplasm redemonstrated. No significant change from one day earlier.
--- NOTE | 2022-03-17 10:56 | P.CNPUL ---
History of Present Illness Consult date: 03/17/22 Requesting physician: Rigoberto E Maya Chief complaint: Shortness of breath, hypoxemia History of present illness: This is a 67-year-old male patient with a history of hypertension, gastroesophageal reflux disease and a recent diagnosis of metastatic adenocarcinoma of the right lung diagnosed in January 2022. No treatment initiated. He was hospitalized again earlier this month with ESBL E. coli urinary tract infection. He was just discharged to an extended care facility 03/15/2022 and brought back yesterday 03/16/2022 with appearance of shortness of breath and lower oxygen. He was initially placed on BiPAP then transitioned to liters nasal cannula where he was saturating in the high 90s up to 100%. He was afebrile. Hemodynamically stable. Chest x-ray continued to show chronic emphysematous changes with bibasilar infiltrate/atelectasis. Right upper lobe mass/neoplasm redemonstrated. No change compared to previous chest x-ray. White count 10.0. Hemoglobin 9.1. Sodium 137. Potassium 3.4. BUN 10. Creatinine 0.57. Glucose 86. Alvarez virus not detected. Influenza screen negative. He is in consultation on the regular medical floor. He is resting comfortably in bed. Maintaining O2 saturations at 98% on 2 L/m per nasal cannula. He's been initiated on Zosyn and azithromycin along with bro nchodilators. Heparin for DVT prophylaxis. Normal saline at 90 miles per hour. Review of Systems REVIEW OF SYSTEMS: CONSTITUTIONAL: Denies any recent significant weight loss or weight gain. EYES: Denies change in vision. EARS, NOSE, MOUTH, THROAT: Denies headaches, denies sore throat. CARDIOVASCULAR: Denies chest pain, palpitations or syncopal episodes. RESPIRATORY: Positive for shortness of breath, cough, congestion no hemoptysis. GASTROINTESTINAL: Denies change in appetite, denies abdominal pain GENITOURINARY: Denies hematuria, denies infections. MUSKULOSKELETAL: Denies pain, denies swelling. INTEGUMENTARY: Denies rash, denies eczema. NEUROLOGICAL: Denies recent memory loss, no recent seizure activity. PSYCHIATRIC: Denies anxiety, denies depression. HEMATOLOGIC/LYMPHATIC: Denies anemia, denies enlarged lymph nodes. Past Medical History Past Medical History: Cancer, GERD/Reflux, Hypertension Additional Past Medical History / Comment(s): paralyzed vocal cord, SKIN CANCER(FACE), metastatic adenocarcinoma of the right lung History of Any Multi-Drug Resistant Organisms: ESBL Date of last positivie culture/infection: 03/06/22 ESBL E.coli MDRO Source:: Urine Past Surgical History: Orthopedic Surgery Additional Past Surgical History / Comment(s): triple endoscopy, LT KNEE SCOPE, LT KNEE MENISCUS SX Past Anesthesia/Blood Transfusion Reactions: No Reported Reaction Additional Past Anesthesia/Blood Transfusion Reaction / Comment(s): . Past Psychological History: No Psychological Hx Reported Smoking Status: Current every day smoker Past Alcohol Use History: None Reported Past Drug Use History: None Reported - Past Family History Father Family Medical History: Congestive Heart Failure (CHF), Myocardial Infarction ([place]) Mother Family Medical History: No Reported History Additional Family Medical History / Comment(s): MOM IS IN GOOD HEALTH AT AGE 96 Medications and Allergies Home Medications Medication Instructions Recorded Confirmed Type Calcium Carbonate [Tums] 500 mg PO Q4H PRN 03/06/22 03/06/22 History Omeprazole 20 mg PO DAILY@0600 03/06/22 03/06/22 History levETIRAcetam [Keppra] 500 mg PO Q12HR@0900,2100 03/06/22 03/06/22 History polyethylene glycoL 3350 [Miralax] 17 gm PO DAILY@0900 PRN #0 03/14/22 03/06/22 Rx Allergies Allergy/AdvReac Type Severity Reaction Status Date / Time No Known Allergies Allergy Verified 03/16/22 21:11 Physical Exam Vitals: Vital Signs Temp Pulse Pulse Resp BP BP BP 03/17/22 08:00 100.5 F H 72 20 126/71 03/17/22 07:15 77 03/17/22 07:04 76 03/17/22 03:57 98.1 F 76 19 132/70 03/17/22 03:23 98.9 F 86 20 149/94 03/17/22 00:06 73 18 146/95 03/16/22 21:41 80 24 126/81 03/16/22 21:40 81 03/16/22 21:30 86 03/16/22 21:03 98.8 F 85 28 H 148/85 Pulse Ox 03/17/22 08:00 100 03/17/22 07:15 03/17/22 07:04 03/17/22 03:57 99 03/17/22 03:23 98 03/17/22 00:06 99 03/16/22 21:41 100 03/16/22 21:40 03/16/22 21:30 03/16/22 21:03 100 Intake and Output 03/16/22 03/17/22 03/17/22 22:59 06:59 14:59 Other: Voiding Method Diaper Incontinent # Voids 1 # Bowel Movements 2 Weight 60.328 kg 60.328 kg GENERAL EXAM: Arousable, frail, cachectic 67-year-old male patient, on 2 L nasal cannula, comfortable in no apparent distress. HEAD: Normocephalic. EYES: Normal reaction of pupils, equal size. NOSE: Clear with pink turbinates. THROAT: No erythema or exudates. NECK: No masses, no JVD. CHEST: No chest wall deformity. LUNGS: Equal air entry with scattered rhonchi right lung. CVS: S1 and S2 normal with no audible murmur, regular rhythm. ABDOMEN: No hepatosplenomegaly, normal bowel sounds, no guarding or rigidity. SPINE: No scoliosis or deformity SKIN: No rashes CENTRAL NERVOUS SYSTEM: No focal deficits, tone is normal in all 4 extremities. EXTREMITIES: There is no peripheral edema. No clubbing, no cyanosis. Pe ripheral pulses are intact. Results - Laboratory Findings CBC and BMP: 03/17/22 05:29 03/17/22 05:29 PT/INR, D-dimer PT 10.6 sec (9.0-12.0) 03/16/22 22:21 INR 1.0 (<1.2) 03/16/22 22:21 Abnormal lab findings: Abnormal Labs 03/16/22 03/16/22 03/16/22 22:21 22:21 22:21 RBC 3.95 L Hgb 10.1 L Hct 31.8 L RDW 17.9 H Neutrophils # VBG pH 7.44 H VBG pCO2 34 L VBG HCO3 23 L Sodium 131 L Potassium 5.6 H Carbon Dioxide 21 L Creatinine 0.45 L Calcium 7.8 L Total Bilirubin 2.2 H AST 93 H Albumin 3.1 L 03/17/22 03/17/22 05:29 05:29 RBC 3.84 L Hgb 9.9 L Hct 31.5 L RDW 17.7 H Neutrophils # 8.0 H VBG pH VBG pCO2 VBG HCO3 Sodium Potassium 3.4 L Carbon Dioxide Creatinine 0.57 L Calcium 7.7 L Total Bilirubin AST Albumin - Diagnostic Findings Chest x-ray: image reviewed Assessment and Plan Assessment: Acute hypoxic respiratory failure secondary to COPD and metastatic adenocarcinoma the right lung. Currently maintaining O2 saturation 98-100% on 2 L nasal cannula Metastatic adenocarcinoma of the right lung. The patient has [employer] metastasis status post craniotomy. Seizure activity, recent back in January 2022 related to [employer] metastases and a CAT scan showed vasogenic edema and effacement of the right lateral ventricle from [employer] metastases. There was an intracranial mass involving the right posterior frontal lobe with surrounding vasogenic edema and it was also effacement of the right lateral ventricle and there is postcraniotomy. Currently the patient is free of any seizures Recent admission for E. coli UTI, ESBL Severe COPD COVID 19 infection ( september 2021) vaccinated with Moderna x1 in the past, re covered Acute on chronic anemia and history of chronic gastritis, history of colonic polyps. History of vocal cord paralysis with hoarseness Benign essential hypertension Tobacco dependence syndrome History of alcoholism Chronic anorexia and weight loss. Left humerus fracture Poor overall functional status secondary to above-mentioned multiple comorbidities Plan: The patient was seen and evaluated Chest x-ray, labs and medications reviewed Procalcitonin pending Discontinue azithromycin, continue Zosyn for now Titrate down the FiO2 as tolerated Continue bronchodilators The patient's overall prognosis is quite poor DO NOT RESUSCITATE/DO NOT INTUBATE CODE STATUS May need to consider hospice care and return to ECF We will continue to follow and make further recommendations based on his clinical status I have personally seen and examined the patient, performed the documentation and the assessment and plan as written. Number of minutes spent on the visit: 20.
[2022-03-17] MEDS: AZITHROMYCIN 500 MG in SODIUM CHLORIDE 0.9% 250 ML IVPB SCH (12:39)
--- NOTE | 2022-03-17 14:30 | P.CONS ---
History of Present Illness - Reason for Consult Consult date: 03/17/22 Metastatic lung cancer - Chief Complaint Shortness of breath - History of Present Illness Mr. 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 He was recently discharged on 03/15/2022, 40 was hospitalized for pneumonia and COPD exacerbation. He was also found to have an ESBL E. coli at that time. He now presents again from [facility] care facility with increased shortness of breath along with fever. Chest x-ray on admission showed increased right lower lobe consolidation with pleural fluid. He was negative for COVID-19, flu A, & flu B. Mr. Ryan is unable to provide any history due to significant weakness and fatigue. His areas provided by his ex- at the bedside. She notes that since his craniotomy, he's had a progressive decline in performance status. He has not improved physically with outpatient physical therapy. He's had multiple hospitalizations for infections and COPD exacerbations during this time. He is not currently eating or drinking and is mostly bedbound. His ex- notes that discussions with the family has entered more towards comfort care and hospice. Review of Systems Unable to obtain due to metabolic encephalopathy Past Medical History Past Medical History: Cancer, GERD/Reflux, Hypertension Additional Past Medical History / Comment(s): paralyzed vocal cord, SKIN CANCER(FACE), metastatic adenocarcinoma of the right lung History of Any Multi-Drug Resistant Organisms: ESBL Year Discovered:: 03/06/22 ESBL E.coli MDRO Source:: Urine Past Surgical History: Orthopedic Surgery Additional Past Surgical History / Comment(s): triple endoscopy, LT KNEE SCOPE, LT KNEE MENISCUS SX Past Anesthesia/Blood Transfusion Reactions: No Reported Reaction Additional Past Anesthesia/Blood Transfusion Reaction / Comm: . Past Psychological History: No Psychological Hx Reported Smoking Status: Current every day smoker Past Alcohol Use History: None Reported Past Drug Use History: None Reported - Past Family History Father Family Medical History: Congestive Heart Failure (CHF), Myocardial Infarction (NH) Mother Family Medical History: No Reported History Additional Family Medical History / Comment(s): MOM IS IN GOOD HEALTH AT AGE 96 Medications and Allergies Home Medications Medication Instructions Recorded Confirmed Type Calcium Carbonate [Tums] 500 mg PO Q4H PRN 03/06/22 03/17/22 History Omeprazole 20 mg PO DAILY@0600 03/06/22 03/17/22 History levETIRAcetam [Keppra] 500 mg PO Q12HR@0900,2100 03/06/22 03/17/22 History polyethylene glycoL 3350 [Miralax] 17 gm PO DAILY@0900 PRN #0 03/14/22 03/17/22 Rx Allergies Allergy/AdvReac Type Severity Reaction Status Date / Time No Known Allergies Allergy Verified 03/17/22 11:01 Physical Exam Vitals: Vital Signs Temp Pulse Pulse Resp BP BP BP 03/17/22 13:55 99.4 F 96 22 131/80 03/17/22 11:25 74 03/17/22 11:11 78 03/17/22 08:00 100.5 F H 72 20 126/71 03/17/22 07:15 77 03/17/22 07:04 76 03/17/22 03:57 98.1 F 76 19 132/70 03/17/22 03:23 98.9 F 86 20 149/94 03/17/22 00:06 73 18 146/95 03/16/22 21:41 80 24 126/81 03/16/22 21:40 81 03/16/22 21:30 86 03/16/22 21:03 98.8 F 85 28 H 148/85 Pulse Ox 03/17/22 13:55 99 03/17/22 11:25 03/17/22 11:11 03/17/22 08:00 100 03/17/22 07:15 03/17/22 07:04 03/17/22 03:57 99 03/17/22 03:23 98 03/17/22 00:06 99 03/16/22 21:41 100 03/16/22 21:40 03/16/22 21:30 03/16/22 21:03 100 Intake and Output 03/16/22 03/17/22 03/17/22 22:59 06:59 14:59 Other: Voiding Method Diaper Incontinent # Voids 1 # Bowel Movements 1 Weight 60.328 kg 60.328 kg Appears cachectic and other than stated age. He is nonverbal and is only able to open his eyes. He is unable to shake his head no. - Constitutional General appearance: no acute distress, thin - Respiratory Respiratory: right: diminished - Cardiovascular Rhythm: regular - Gastrointestinal General gastrointestinal: no distended, soft - Integumentary Integumentary: pale - Neurologic Unable to perform due to not being able to respond to commands Results CBC & Chem 7: 03/17/22 05:29 03/17/22 05:29 Labs: Abnormal Lab Results - Last 24 Hours (Table) 03/16/22 03/16/22 03/16/22 Range/Units 22:21 22:21 22:21 RBC 3.95 L (4.30-5.90) m/uL Hgb 10.1 L (13.0-17.5) gm/dL Hct 31.8 L (39.0-53.0) % RDW 17.9 H (11.5-15.5) % Neutrophils # (1.3-7.7) k/uL VBG pH 7.44 H (7.31-7.41) VBG pCO2 34 L (37-51) mmHg VBG HCO3 23 L (24-28) mmol/L Sodium 131 L (137-145) mmol/L Potassium 5.6 H (3.5-5.1) mmol/L Carbon Dioxide 21 L (22-30) mmol/L Creatinine 0.45 L (0.66-1.25) mg/dL Calcium 7.8 L (8.4-10.2) mg/dL Total Bilirubin 2.2 H (0.2-1.3) mg/dL AST 93 H (17-59) U/L Albumin 3.1 L (3.5-5.0) g/dL Procalcitonin (0.02-0.09) ng/mL 03/17/22 03/17/22 03/17/22 Range/Units 05:29 05:29 05:29 RBC 3.84 L (4.30-5.90) m/uL Hgb 9.9 L (13.0-17.5) gm/dL Hct 31.5 L (39.0-53.0) % RDW 17.7 H (11.5-15.5) % Neutrophils # 8.0 H (1.3-7.7) k/uL VBG pH (7.31-7.41) VBG pCO2 (37-51) mmHg VBG HCO3 (24-28) mmol/L Sodium (137-145) mmol/L Potassium 3.4 L (3.5-5.1) mmol/L Carbon Dioxide (22-30) mmol/L Creatinine 0.57 L (0.66-1.25) mg/dL Calcium 7.7 L (8.4-10.2) mg/dL Total Bilirubin (0.2-1.3) mg/dL AST (17-59) U/L Albumin (3.5-5.0) g/dL Procalcitonin 0.58 H (0.02-0.09) ng/mL Assessment and Plan Assessment: Mr. Ryan is a 67-year-old gentleman with a past medical history significant for stage IV lung cancer with primary brain metastases status post craniotomy/resection and COPD who presents with fever and shortness of breath. He had progressive weakness, anorexia, and weight loss with an ECOG performance status of 3-4. (1) Brain metastases Current Visit: Yes Status: Chronic Code(s): C79.31 - SECONDARY MALIGNANT NEOPLASM OF BRAIN SNOMED Code(s): 31348926 (2) COPD (chronic obstructive pulmonary disease) Current Visit: Yes Status: Chronic Code(s): J44.9 - CHRONIC OBSTRUCTIVE PULMONARY DISEASE, UNSPECIFIED SNOMED Code(s): 80863540 (3) Lung cancer Current Visit: Yes Status: Acute Code(s): C34.90 - MALIGNANT NEOPLASM OF UNSP PART OF UNSP BRONCHUS OR LUNG SNOMED Code(s): 323411272 (4) Pneumonia Current Visit: Yes Status: Acute Code(s): J18.9 - PNEUMONIA, UNSPECIFIED ORGANISM SNOMED Code(s): 184657298 Plan: #Stage IV lung cancer -Underwent resection of brain metastasis at [facility] on 01/20/2022 per ex- at bedside -He has had a precipitous decline in performance status over the past month or so with recurrent hospitalizations, weakness, and now being essentially bedridden -He currently has an ECOG performance status of 3-4 -His family has previously discussed transition to hospice. Given his current performance status, I agree that hospice is appropriate -He would not be a candidate for any form of systemic therapy at this time -His ex- is in agreement with this plan. I will attempt to call his daughter and power of corporate attorney Tamika regarding discussion, but I was unable to contact her at the listed number. I will attempt to contact her again to update her on my recommendation -Case management has been consulted with regards to arrangements for hospice
[2022-03-17] MEDS ORDERED: MORPHINE SULFATE 2 MG/ML SYRINGE IVP PRN (14:47)
--- NOTE | 2022-03-17 22:21 | P.HPIM ---
History of Present Illness This is a 67 year old male with recent diagnosis of metastatic adenocarcinoma of right lung, status post craniotomy, hypertension, gastroesophageal reflux disease, COPD, paralyzed vocal chords, chronic nicotine use, chronic alcohol use, recent left humerous fracture with no surgical intervention has been using immobility sling to left arm. Patient [facility]ness of breath and hypoxia. He has been at [facility] for sub acute rehab since last admission. Patient was found to have acute hypoxic respiratory failure with metastatic right lung cancer to the [employer]ICAL FEE [employer]. He was diagnosed with septic shock and treated with icing of the pressors then improved and after prolonged hospitalization discharge to rehab yesterday was supposed to get to his appointment with her oncologist on 03/21 however looks like patient got deteriorated and sent back where he looks very pale and lethargic and obtunded and unresponsive Family have discussed the case with oncology team and they required in hospice care. Ex- Radha at bedside and she told me that or family member including his sister Celina are in agreement with hospice care However patient prognosis is extremely poor given his clinical complex condition and recurrent infection and recurrent hospitalization with multiple problems despite several treatment attempts Review of Systems ROS unobtainable: due to mental status Past Medical History Past Medical History: Cancer, GERD/Reflux, Hypertension Additional Past Medical History / Comment(s): paralyzed vocal cord, SKIN CANCER(FACE), metastatic adenocarcinoma of the right lung History of Any Multi-Drug Resistant Organisms: ESBL Date of last positivie culture/infection: 03/06/22 ESBL E.coli MDRO Source:: Urine Past Surgical History: Orthopedic Surgery Additional Past Surgical History / Comment(s): triple endoscopy, LT KNEE SCOPE, LT KNEE MENISCUS SX Past Anesthesia/Blood Transfusion Reactions: No Reported Reaction Additional Past Anesthesia/Blood Transfusion Reaction / Comment(s): . Past Psychological History: No Psychological Hx Reported Smoking Status: Current every day smoker Past Alcohol Use History: None Reported Past Drug Use History: None Reported - Past Family History Father Family Medical History: Congestive Heart Failure (CHF), Myocardial Infarction (ID) Mother Family Medical History: No Reported History Additional Family Medical History / Comment(s): MOM IS IN GOOD HEALTH AT AGE 96 Medications and Allergies Home Medications Medication Instructions Recorded Confirmed Type Calcium Carbonate [Tums] 500 mg PO Q4H PRN 03/06/22 03/17/22 History Omeprazole 20 mg PO DAILY@0600 03/06/22 03/17/22 History levETIRAcetam [Keppra] 500 mg PO Q12HR@0900,2100 03/06/22 03/17/22 History polyethylene glycoL 3350 [Miralax] 17 gm PO DAILY@0900 PRN #0 03/14/22 03/17/22 Rx Allergies Allergy/AdvReac Type Severity Reaction Status Date / Time No Known Allergies Allergy Verified 03/17/22 11:01 Physical Exam Vitals: Vital Signs Temp Pulse Pulse Resp BP BP BP 03/17/22 20:09 68 03/17/22 19:57 68 03/17/22 19:22 98.5 F 92 18 143/76 03/17/22 15:21 68 03/17/22 15:05 66 03/17/22 13:55 99.4 F 96 22 131/80 03/17/22 11:25 74 03/17/22 11:11 78 03/17/22 08:00 100.5 F H 72 20 126/71 03/17/22 07:15 77 03/17/22 07:04 76 03/17/22 03:57 98.1 F 76 19 132/70 03/17/22 03:23 98.9 F 86 20 149/94 03/17/22 00:06 73 18 146/95 Pulse Ox 03/17/22 20:09 03/17/22 19:57 03/17/22 19:22 100 03/17/22 15:21 03/17/22 15:05 03/17/22 13:55 99 03/17/22 11:25 03/17/22 11:11 03/17/22 08:00 100 03/17/22 07:15 03/17/22 07:04 03/17/22 03:57 99 03/17/22 03:23 98 03/17/22 00:06 99 Intake and Output 03/17/22 03/17/22 03/17/22 06:59 14:59 22:59 Other: Voiding Method Diaper Incontinent # Voids 1 2 # Bowel Movements 1 Weight 60.328 kg -GENERAL: The patient is distended unresponsive. Very pale HEENT: Pupils are round and equally reacting to light. EOMI. No scleral icterus. No conjunctival pallor. Normocephalic, atraumatic. No pharyngeal erythema. No thyromegaly. CARDIOVASCULAR: S1 and S2 present. No murmurs, rubs, or gallops. -PULMONARY: Chest is clear to auscultation, no wheezing . Tachypnea with bilateral crepitation ABDOMEN: Soft, nontender, nondistended, normoactive bowel sounds. No palpable organomegaly. MUSCULOSKELETAL: No joint swelling or deformity. EXTREMITIES: No cyanosis, clubbing, or pedal edema. NEUROLOGICAL: Gross neurological examination did not reveal any focal deficits. SKIN: No rashes. no petechiae. Results CBC & Chem 7: 03/17/22 05:29 03/17/22 05:29 Labs: Abnormal Lab Results - Last 24 Hours (Table) 03/16/22 03/16/22 03/16/22 Range/Units 22:21 22:21 22:21 RBC 3.95 L (4.30-5.90) m/uL Hgb 10.1 L (13.0-17.5) gm/dL Hct 31.8 L (39.0-53.0) % RDW 17.9 H (11.5-15.5) % Neutrophils # (1.3-7.7) k/uL VBG pH 7.44 H (7.31-7.41) VBG pCO2 34 L (37-51) mmHg VBG HCO3 23 L (24-28) mmol/L Sodium 131 L (137-145) mmol/L Potassium 5.6 H (3.5-5.1) mmol/L Carbon Dioxide 21 L (22-30) mmol/L Creatinine 0.45 L (0.66-1.25) mg/dL Calcium 7.8 L (8.4-10.2) mg/dL Total Bilirubin 2.2 H (0.2-1.3) mg/dL AST 93 H (17-59) U/L Albumin 3.1 L (3.5-5.0) g/dL Procalcitonin (0.02-0.09) ng/mL 03/17/22 03/17/22 03/17/22 Range/Units 05:29 05:29 05:29 RBC 3.84 L (4.30-5.90) m/uL Hgb 9.9 L (13.0-17.5) gm/dL Hct 31.5 L (39.0-53.0) % RDW 17.7 H (11.5-15.5) % Neutrophils # 8.0 H (1.3-7.7) k/uL VBG pH (7.31-7.41) VBG pCO2 (37-51) mmHg VBG HCO3 (24-28) mmol/L Sodium (137-145) mmol/L Potassium 3.4 L (3.5-5.1) mmol/L Carbon Dioxide (22-30) mmol/L Creatinine 0.57 L (0.66-1.25) mg/dL Calcium 7.7 L (8.4-10.2) mg/dL Total Bilirubin (0.2-1.3) mg/dL AST (17-59) U/L Albumin (3.5-5.0) g/dL Procalcitonin 0.58 H (0.02-0.09) ng/mL Thrombosis Risk Factor Assmnt - Choose All That Apply Each Factor Represents 1 point: Abnormal pulmonary function (COPD), Serious lung disease incl. pneumonia (< 1month) Each Risk Factor Represents 2 Points: Age 61-74 years Thrombosis Risk Factor Assessment Total Risk Factor Score: 4 Thrombosis Risk Factor Assessment Level: Moderate Risk Assessment and Plan Assessment: Severe metastatic lung cancer to the brain status post resection Deconditioning and decline in health performance Recent diagnosis of Left lower lobe pneumonia Recent diagnosis metastatic adenocarcinoma of right lung Brain metastasis post craniotomy History of seizure activity Acute on chronic anemia status post 3 units packed red blood cells Elevated D-Dimer, CTA negative for pulmonary embolism Troponin elevation, possible troponin leak from sepsis Lactic acidosis Recent left humerus fracture with no surgical repair has been using sling History of COPD History gastroesophageal reflux disease History of vocal cord paralysis Hypertension history currently normotensive Anemia of chronic disease History of chronic alcohol use Chronic tobacco use Plan: Family considering hospice consult Continue with morphine as needed for pain control although patient looks comfortable currently. Oncology and pulmonary team on the case Continue with antibiotics Zosyn and bronchodilator No code Prognosis is very poor
[2022-03-18] MEDS: PIPERACILLIN-TAZOBACTAM 3.375 GM in SODIUM CHLORIDE 0.9% 100 ML IVPB SCH ×3 (00:46→16:55)
[2022-03-18] MEDS: HEPARIN SODIUM,PORCINE/PF 5,000 UNIT/0.5 ML SYRINGE SQ SCH ×3 (00:46→16:55)
[2022-03-18] MEDS: IPRATROPIUM-ALBUTEROL 3 ML NEB INHALATION SCH ×4 (07:01→20:16)
[2022-03-18] MEDS: LISINOPRIL-HCTZ 20-12.5 MG 1 EACH TAB PO SCH (08:13)
[2022-03-18] MEDS: methylPREDNISolone SOD SUCCI 40 MG/ML 1 ML VIAL IV SCH ×2 (08:13→20:37)
--- NOTE | 2022-03-18 10:26 | P.PN ---
Subjective Progress Note Date: 03/18/22 Principal diagnosis: Acute hypoxic respiratory failure secondary to metastatic lung cancer and acute exacerbation of COPD This is a 67-year-old male patient with a history of hypertension, gastroesophageal reflux disease and a recent diagnosis of metastatic adenocarcinoma of the right lung diagnosed in January 2022. No treatment initiated. He was hospitalized again earlier this month with ESBL E. coli urinary tract infection. He was just discharged to an extended care facility 03/15/2022 and brought back yesterday 03/16/2022 with appearance of shortness of breath and lower oxygen. He was initially placed on BiPAP then transitioned to liters nasal cannula where he was saturating in the high 90s up to 100%. He was afebrile. Hemodynamically stable. Chest x-ray continued to show chronic emphysematous changes with bibasilar infiltrate/atelectasis. Right upper lobe mass/neoplasm redemonstrated. No change compared to previous chest x-ray. White count 10.0. Hemoglobin 9.1. Sodium 137. Potassium 3.4. BUN 10. Creatinine 0.57. Glucose 86. Alvarez virus not detected. Influenza screen negative. He is in consultation on the regular medical floor. He is resting comfortably in bed. Maintaining O2 saturations at 98% on 2 L/m per nasal cannula. He's been initiated on Zosyn and azithromycin along with bronchodilators. Heparin for DVT prophylaxis. Normal saline at 90 miles per hour. Reevaluated today on 03/18/22, patient is basically about the same, he is on 2 L nasal cannula, O2 sat is 99%. Patient looks extremely frail, weak, and chronically ill. My recommendations point is to seriously consider hospice on this patient. Apparently he was seen by oncology and did not feel that the patient is a candidate for any chemotherapy. And they are also recommending hospice Objective - Vital Signs Vital signs: Vital Signs Temp 98.1 F 03/18/22 08:00 Pulse 78 03/18/22 08:00 Resp 18 03/18/22 08:00 BP 105/70 03/18/22 08:00 Pulse Ox 100 03/18/22 08:00 FiO2 Intake & Output 03/17/22 03/18/22 03/18/22 18:59 06:59 18:59 Other: Voiding Method Diaper Incontinent # Voids 2 2 2 # Bowel Movements 1 1 - Exam Physical Exam: Revealed a 67-year-old white male, frail, chronically ill looking, in no distress. HEENT:[Neck is supple.] [No neck masses.] [No thyromegaly.] [No JVD.] Chest: [Diminished breath sound bibasilar and scattered rhonchi noted Cardiac Exam: [Normal S1 and S2, no S3 gallop, no murmur.] Abdomen: [Soft, nontender, no megaly, no rebound, no guarding, normal bowel sounds.] Extremities: [No clubbing, no edema, no cyanosis.] Neurological Exam: [No focal neurologic deficit., Patient looks generally weak Skin: No rashes. - Labs CBC & Chem 7: 03/17/22 05:29 03/17/22 05:29 Labs: Abnormal Lab Results - Last 24 Hours (Table) 03/17/22 Range/Units 05:29 Procalcitonin 0.58 H (0.02-0.09) ng/mL Microbiology - Last 24 Hours (Table) 03/17/22 00:45 Blood Culture - Preliminary Blood No Growth after 24 hours 03/17/22 00:30 Blood Culture - Preliminary Blood No Growth after 24 hours Assessment and Plan Assessment: Impression: Metastatic adenocarcinoma Acute hypoxic respiratory failure, transient on presentation, multifactorial mostly secondary to COPD and metastatic adenocarcinoma right lung. Recent history of UTI secondary to E. coli/ESBL Severe underlying COPD History of COVID-19 infection in September History of alcoholism Benign essential hypertension History of chronic vocal cord paralysis Medical debility. Recommendation: Continue present treatment plan Continue DO NOT RESUSCITATE CODE STATUS Continue bronchodilators Again I strongly recommend hospice as already recommended by oncology on the case. We will follow the patient on when necessary basis. Time with Patient: Less than 30
[2022-03-18] MEDS: AZITHROMYCIN 500 MG in SODIUM CHLORIDE 0.9% 250 ML IVPB SCH (12:23)
[2022-03-18] MEDS: CALCIUM CARBONATE 500 MG CHEWABLE PO PRN (18:48)
--- NOTE | 2022-03-18 19:53 | P.PN ---
Subjective This is a 67 year old male with recent diagnosis of metastatic adenocarcinoma of right lung, status post craniotomy, hypertension, gastroesophageal reflux disease, COPD, paralyzed vocal chords, chronic nicotine use, chronic alcohol use, recent left humerous fracture with no surgical intervention has been using immobility sling to left arm. Patient [facility]ness of breath and hypoxia. He has been at [facility] for sub acute rehab since last admission. Patient was found to have acute hypoxic r espiratory failure with metastatic right lung cancer to the ORGAN FIXER. He was diagnosed with septic shock and treated with icing of the pressors then improved and after prolonged hospitalization discharge to rehab yesterday was supposed to get to his appointment with her oncologist on 03/21 however looks like patient got deteriorated and sent back where he looks very pale and lethargic and obtunded and unresponsive Family have discussed the case with oncology team and they required in hospice care. Ex- Radha at bedside and she told me that or family member including his sister Celina are in agreement with hospice care However patient prognosis is extremely poor given his clinical complex condition and recurrent infection and recurrent hospitalization with multiple problems despite several treatment attempts 03/18/2022 Patient is up tended, he does not answer question, he does not open eyes and nonverbal. He is very weak and lethargic However he does not look in distress or pain Hospice team's recommended for him by oncology and pulmonary team. Also family are considering hospice team, Already block and case maker was consulted for hospice care. No family at bedside Objective - Vital Signs Vital signs: Vital Signs Temp 98.1 F 03/18/22 08:00 Pulse 78 03/18/22 08:00 Resp 18 03/18/22 08:00 BP 105/70 03/18/22 08:00 Pulse Ox 100 03/18/22 08:00 FiO2 Intake & Output 03/17/22 03/18/22 03/18/22 18:59 06:59 18:59 Other: Voiding Method Diaper Diaper Incontinent Incontinent # Voids 2 2 2 # Bowel Movements 1 1 - Exam -GENERAL: The patient is very weak and obtunded HEENT: Pupils are round and equally reacting to light. EOMI. No scleral icterus. No conjunctival pallor. Normocephalic, atraumatic. No pharyngeal erythema. No thyromegaly. CARDIOVASCULAR: S1 and S2 present. No murmurs, rubs, or gallops. PULMONARY: Chest is clear to auscultation, no wheezing or crackles. Tachypnea ABDOMEN: Soft, nontender, nondistended, normoactive bowel sounds. No palpable organomegaly. MUSCULOSKELETAL: No joint swelling or deformity. EXTREMITIES: No cyanosis, clubbing, or pedal edema. NEUROLOGICAL: Gross neurological examination did not reveal any focal deficits. SKIN: No rashes. no petechiae. - Labs CBC & Chem 7: 03/17/22 05:29 03/17/22 05:29 Labs: Abnormal Lab Results - Last 24 Hours (Table) 03/17/22 Range/Units 05:29 Procalcitonin 0.58 H (0.02-0.09) ng/mL Microbiology - Last 24 Hours (Table) 03/17/22 00:45 Blood Culture - Preliminary Blood No Growth after 24 hours 03/17/22 00:30 Blood Culture - Preliminary Blood No Growth after 24 hours Assessment and Plan Assessment: Severe metastatic lung cancer to the brain status post resection Deconditioning and decline in health performance Recent diagnosis of Left lower lobe pneumonia Recent diagnosis metastatic adenocarcinoma of right lung Brain metastasis post craniotomy History of seizure activity Acute on chronic anemia status post 3 units packed red blood cells Elevated D-Dimer, CTA negative for pulmonary embolism Troponin elevation, possible troponin leak from sepsis Lactic acidosis Recent left humerus fracture with no surgical repair has been using sling History of COPD History gastroesophageal reflux disease History of vocal cord paralysis Hypertension history currently normotensive Anemia of chronic disease History of chronic alcohol use Chronic tobacco use Plan: Family considering hospice consult Continue with morphine as needed for pain control although patient looks comfortable currently. Oncology and pulmonary team on the case Continue with antibiotics Zosyn and bronchodilator No code Prognosis is very poor manager of product was consulted
[2022-03-19] MEDS: PIPERACILLIN-TAZOBACTAM 3.375 GM in SODIUM CHLORIDE 0.9% 100 ML IVPB SCH ×2 (00:37→09:29)
[2022-03-19] MEDS: HEPARIN SODIUM,PORCINE/PF 5,000 UNIT/0.5 ML SYRINGE SQ SCH ×3 (00:38→15:10)
[2022-03-19] MEDS: CALCIUM CARBONATE 500 MG CHEWABLE PO PRN ×2 (06:11→11:47)
[2022-03-19] MEDS: IPRATROPIUM-ALBUTEROL 3 ML NEB INHALATION SCH ×4 (07:02→18:39)
--- NOTE | 2022-03-19 08:13 | P.PN ---
Subjective Progress Note Date: 03/19/22 Principal diagnosis: Lung cancer. 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 No treatment initiated. He was hospitalized again earlier this month with ESBL E. coli urinary tract infection. He was just discharged to an extended care facility 03/15/2022 and brought back yesterday 03/16/2022 with appearance of shortness of breath and lower oxygen. He was initially placed on BiPAP then transitioned to liters nasal cannula where he was saturating in the high 90s up to 100%. He was afebrile. Hemodynamically stable. Chest x-ray continued to show chronic emphysematous changes with bibasilar infiltrate/atelectasis. Right upper lobe mass/neoplasm redemonstrated. No change compared to previous chest x-ray. White count 10.0. Hemoglobin 9.1. Sodium 137. Potassium 3.4. BUN 10. Creatinine 0.57. Glucose 86. Alvarez virus not detected. Influenza screen negative. He is in consultation on the regular medical floor. He is resting comfortably in bed. Maintaining O2 saturations at 98% on 2 L/m per nasal cannu la. He's been initiated on Zosyn and azithromycin along with bronchodilators. Heparin for DVT prophylaxis. Normal saline at 90 miles per hour. Reevaluated today on 03/18/22, patient is basically about the same, he is on 2 L nasal cannula, O2 sat is 99%. Patient looks extremely frail, weak, and chronically ill. My recommendations point is to seriously consider hospice on this patient. Apparently he was seen by oncology and did not feel that the patient is a candidate for any chemotherapy. And they are also recommending hospice. Progress note dated 03/19/2022. The patient's currently on room air. Is not demonstrating or mentioning any issues with breathing. The patient was apparently admitted with a diagnosis of possible pneumonia. He does have a history of adenocarcinoma, with metastases to the brain. Patient has undergone a craniotomy. He was recently inpatient, discharged to a local [place] [facility], and readmitted. No new labs today. Blood cultures are negative. The patient is currently on subcu heparin, updraft treatments, lisinopril, Solu-Medrol, morphine, and Zosyn. Objective - Vital Signs Vital signs: Vital Signs Temp 98.4 F 03/19/22 07:42 Pulse 80 03/19/22 07:42 Resp 17 03/19/22 07:42 BP 130/77 03/19/22 07:42 Pulse Ox 99 03/19/22 07:42 FiO2 Intake & Output 03/18/22 03/19/22 03/19/22 18:59 06:59 18:59 Other: Voiding Method Diaper Diaper Incontinent Incontinent # Voids 0 3 # Bowel Movements 0 - Exam No acute distress, oriented 3. No respiratory distress. The patient appears chronically ill. HEENT examination is grossly unremarkable. Neck supple. Full range of motion. No adenopathy thyromegaly or neck vein distention. Cardiovascular examination reveals regular rhythm rate. S1-S2 normal. No S3 or S4. No discernible murmur noted. Heart rate 80 bpm. Lungs reveal mostly clear breath sounds. Room air saturation 99%. Breath sounds are equal bilaterally. Abdomen soft bowel sounds are heard. No masses or tenderness. Extremities are intact. No cyanosis clubbing or edema. Skin is without rash or lesion. Neurologic examination is brief but nonfocal. - Labs CBC & Chem 7: 03/17/22 05:29 03/17/22 05:29 Labs: Microbiology - Last 24 Hours (Table) 03/17/22 00:45 Blood Culture - Preliminary Blood No Growth after 48 hours 03/17/22 00:30 Blood Culture - Preliminary Blood No Growth after 48 hours Assessment and Plan Assessment: Metastatic adenocarcinoma, with metastasis to the brain, status post craniotomy. Chronic obstructive pulmonary disease. Recent history of UTI secondary to ESBL Escherichia coli. History of coronavirus infection, September 2021. History of chronic alcohol abuse. Benign essential hypertension. History of chronic vocal cord paralysis. Medical debility. Recent left shoulder fracture. Plan: Plan dated 03/19/2022. The patient is a DO NOT RESUSCITATE. That is appropriate. I would discontinue the corticosteroids. We'll place a consult for hospice. No additional recommendations are made. Prognosis is very poor. The patient does not have pneumonia. We will discontinue the antibiotic at this time. Time with Patient: Less than 30
[2022-03-19] MEDS: LISINOPRIL-HCTZ 20-12.5 MG 1 EACH TAB PO SCH (09:29)
--- NOTE | 2022-03-19 23:58 | P.PN ---
Subjective Progress Note Date: 03/19/22 This is a 67 year old male with recent diagnosis of metastatic adenocarcinoma of right lung, status post craniotomy, hypertension, gastroesophageal reflux disease, COPD, paralyzed vocal chords, chronic nicotine use, chronic alcohol use, recent left humerous fracture with no surgical intervention has been using immobility sling to left arm. He [facility] since has last 2 prior admission. Patient was found to have acute hypoxic respiratory failure with metastatic right lung cancer to the [employer]. He was diagnosed with septic shock and treated with vasopressors then improved and after prolonged hospitalization discharge to rehab yesterday was supposed to get to his appointment with her oncologist on 03/21 however looks like patient got deteriorated and sent back where he looks very pale and lethargic and obtunded and unresponsive Family have discussed the case with oncology team and they required in hospice care. Ex- Radha at bedside and she told me that or family member including his sister Celina are in agreement with hospice care However patient prognosis is extremely poor given his clinical complex condition and recurrent infection and recurrent hospitalization with multiple problems despite several treatment attempts 03/18/2022 Patient is up tended, he does not answer question, he does not open eyes and nonverbal. He is very weak and lethargic However he does not look in distress or pain Hospice team's recommended for him by oncology and pulmonary team. Also family are considering hospice team, Already case folder was consulted for hospice care. No family at bedside 03/19/2022 Patient evaluated today resting in bed. He is pale and weak however he is alert x 3 and oriented. He did agree to hospice care. He is currently requesting tums for an upset stomach. He is pending meeting with family and hospice today. Hgb today 9.9, white count stable at 10.0. Sodium 137, potassium 3.4. Procalcitonin level elevated at 0.58. Blood pressure is low normal and blood pressure medication will be held. Pulmonary is following. Review of Systems Constitutional: Reports fatigue denied any fever. Cardio vascular: denied any chest pain, palpitations Gastrointestinal: denied any nausea, vomiting, diarrhea Pulmonary: Denied any shortness of breath cough Neurologic denied any new focal deficits All inpatient medications were reviewed and appropriate changes in these medications as dictated in the interval history and assessment and plan. PHYSICAL EXAMINATION: GENERAL: The patient is alert and oriented x3, not in any acute distress. lethargic. Well developed, well nourished. HEENT: Pupils are round and equally reacting to light. EOMI. No scleral icterus. No conjunctival pallor. Normocephalic, atraumatic. No pharyngeal erythema. No thyromegaly. CARDIOVASCULAR: S1 and S2 present. No murmurs, rubs, or gallops. PULMONARY: Chest is clear to auscultation, no wheezing or crackles. ABDOMEN: Soft, nontender, nondistended, normoactive bowel sounds. No palpable organomegaly. MUSCULOSKELETAL: No joint swelling or deformity. EXTREMITIES: No cyanosis, clubbing, or pedal edema. NEUROLOGICAL: Gross neurological examination did not reveal any focal deficits. SKIN: No rashes. Assessment and Plan Assessment Deconditioning and decline in health performance Hyponatremia, hypovolemic from poor oral intake, improved with IV fluids Recent hospitalization for left lower lobe pneumonia with sepsis, troponin leak, and acute anemia requiring blood transusion, vasopressors and ICU support. Currently negative troponin, hemoglobin stable, no evidence for pneumonia. Recent history of ESBL E. Coli UTI Recent diagnosis metastatic adenocarcinoma of right lung Brain metastasis post recent craniotomy with resection at [facility] History of seizure activity Recent left humerus fracture with no surgical repair has been using sling History of COPD History gastroesophageal reflux disease History of vocal cord paralysis Hypertension history currently normotensive Anemia of chronic disease History of chronic alcohol use Chronic tobacco use GI Prophylaxis DVT Prophylaxis No Code Plan Hospice consultation pending at this time Continue supportive care Patient is alert x 3 and agreeable to hospice at this time Further recommendations pending Antibiotics and steroids have been discontinued by pulmonary team Hold blood pressure medications Sodium has improved, potassium will be supplemented. The impression and plan of care has been dictated by Amarilis James, Nurse Practitioner as directed. Dr. Major MD I have performed a history and physical examination and medical decision making of this patient, discussed the same with the dictator, and agree with the dictators assessment and plan as written, documented as a scribe. Based on total visit time, I have performed more than 50% of this visit. Objective - Vital Signs Vital signs: Vital Signs Temp 97.8 F 03/19/22 14:00 Pulse 92 03/19/22 14:00 Resp 17 03/19/22 14:00 BP 117/76 03/19/22 14:00 Pulse Ox 100 10/24/22 14:00 FiO2 Intake & Output 03/18/22 03/19/22 03/19/22 18:59 06:59 18:59 Other: Voiding Method Diaper Diaper Incontinent Incontinent Incontinent # Voids 0 3 2 # Bowel Movements 0 - Labs CBC & Chem 7: 03/17/22 05:29 03/17/22 05:29 Labs: Microbiology - Last 24 Hours (Table) 03/17/22 00:45 Blood Culture - Preliminary Blood No Growth after 48 hours 03/17/22 00:30 Blood Culture - Preliminary Blood No Growth after 48 hours Assessment and Plan Time with Patient: Less than 30
[2022-03-20] MEDS: HEPARIN SODIUM,PORCINE/PF 5,000 UNIT/0.5 ML SYRINGE SQ SCH ×3 (00:35→16:10)
--- NOTE | 2022-03-20 08:09 | P.PN ---
Subjective Progress Note Date: 03/20/22 Principal diagnosis: Lung cancer. 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 No treatment initiated. He was hospitalized again earlier this month with ESBL E. coli urinary tract infection. He was just discharged to an extended care facility 03/15/2022 and brought back yesterday 03/16/2022 with appearance of shortness of breath and lower oxygen. He was initially placed on BiPAP then transitioned to liters nasal cannula where he was saturating in the high 90s up to 100%. He was afebrile. Hemodynamically stable. Chest x-ray continued to show chronic emphysematous changes with bibasilar infiltrate/atelectasis. Right upper lobe mass/neoplasm redemonstrated. No change compared to previous chest x-ray. White count 10.0. Hemoglobin 9.1. Sodium 137. Potassium 3.4. BUN 10. Creatinine 0.57. Glucose 86. Alvarez virus not detected. Influenza screen negative. He is in consultation on the regular medical floor. He is resting comfortably in bed. Maintaining O2 saturations at 98% on 2 L/m per nasal cannu la. He's been initiated on Zosyn and azithromycin along with bronchodilators. Heparin for DVT prophylaxis. Normal saline at 90 miles per hour. Reevaluated today on 03/18/22, patient is basically about the same, he is on 2 L nasal cannula, O2 sat is 99%. Patient looks extremely frail, weak, and chronically ill. My recommendations point is to seriously consider hospice on this patient. Apparently he was seen by oncology and did not feel that the patient is a candidate for any chemotherapy. And they are also recommending hospice. Progress note dated 03/19/2022. The patient's currently on room air. Is not demonstrating or mentioning any issues with breathing. The patient was apparently admitted with a diagnosis of possible pneumonia. He does have a history of adenocarcinoma, with metastases to the brain. Patient has undergone a craniotomy. He was recently inpatient, discharged to a local snf, and readmitted. No new labs today. Blood cultures are negative. The patient is currently on subcu heparin, updraft treatments, lisinopril, Solu-Medrol, morphine, and Zosyn. Progress note dated 03/18/2022. Currently, the patient's very lethargic and somnolent. He is on room air. Updrafts to be discontinued. Apparently, he will be meeting with hospice today, along with family members. He has a history of adenocarcinoma of the lung, with metastasis to the brain. No new laboratory data today. No new x-rays today. Blood cultures are negative. Objective - Vital Signs Vital signs: Vital Signs Temp 98.4 F 03/20/22 01:33 Pulse 88 03/20/22 01:33 Resp 17 03/20/22 01:33 BP 113/70 03/20/22 01:33 Pulse Ox 99 03/20/22 01:33 FiO2 Intake & Output 03/19/22 03/20/22 03/20/22 18:59 06:59 18:59 Output Total 650 Balance -650 Output: Urine 650 Other: Voiding Method Incontinent Incontinent External Catheter # Voids 2 - Exam No acute distress, lethargic. No respiratory distress. The patient appears chronically ill. HEENT examination is grossly unremarkable. Neck supple. Full range of motion. No adenopathy thyromegaly or neck vein distention. Cardiovascular examination reveals regular rhythm rate. S1-S2 normal. No S3 or S4. No discernible murmur noted. Heart rate 88 bpm. Lungs reveal mostly clear breath sounds. Room air saturation 98 %. Breath sounds are equal bilaterally. Abdomen soft bowel sounds are heard. No masses or tenderness. Extremities are intact. No cyanosis clubbing or edema. Skin is without rash or lesion. Neurologic examination is brief but nonfocal. Patient is lethargic this morning. - Labs CBC & Chem 7: 03/17/22 05:29 03/17/22 05:29 Labs: Microbiology - Last 24 Hours (Table) 03/17/22 00:30 Blood Culture - Preliminary Blood No Growth after 72 hours 03/17/22 00:45 Blood Culture - Preliminary Blood No Growth after 72 hours Assessment and Plan Assessment: Metastatic adenocarcinoma, with metastasis to the brain, status post craniotomy. Chronic obstructive pulmonary disease. Recent history of UTI secondary to ESBL Escherichia coli. History of coronavirus infection, September 2021. History of chronic alcohol abuse. Benign essential hypertension. History of chronic vocal cord paralysis. Medical debility. Recent left shoulder fracture. Plan: Plan dated 03/19/2022. The patient is a DO NOT RESUSCITATE. That is appropriate. I would discontinue the corticosteroids. We'll place a consult for hospice. No additional recommendations are made. Prognosis is very poor. The patient does not have pneumonia. We will discontinue the antibiotic at this time. Plan dated 03/20/2022. The patient is a DO NOT RESUSCITATE patient. The family and the patient will be meeting with hospice today. Updrafts were discontinued. His prognosis is very poor. His health is declining significantly in the last 4-6 weeks. Antibiotics were discontinued. The patient does not have pneumonia. Updrafts are discontinued. Time with Patient: Less than 30
[2022-03-20 11:04] LABS: African American GFR (CKD) >90 (>60 ml/min/1.73 sqM); Anion Gap 6 mmol/L; Blood Urea Nitrogen 20 mg/dL (9-20); Calcium 7.9 mg/dL (8.4-10.2); Carbon Dioxide 23 mmol/L (22-30); Chloride 112 mmol/L (98-107); Glucose 82 mg/dL (74-99); Non-African American GFR(CKD) >90 (>60 ml/min/1.73 sqM); Sodium 141 mmol/L (137-145)
--- NOTE | 2022-03-20 14:41 | P.PN ---
Subjective Progress Note Date: 03/20/22 This is a 67 year old male with recent diagnosis of metastatic adenocarcinoma of right lung, status post craniotomy, hypertension, gastroesophageal reflux disease, COPD, paralyzed vocal chords, chronic nicotine use, chronic alcohol use, recent left humerous fracture with no surgical intervention has been using immobility sling to left arm. He has been at [facility] for sub acute rehab since has last 2 prior admission. Patient was found to have acute hypoxic respiratory failure with metastatic right lung cancer to the [employer]. He was diagnosed with septic shock and treated with vasopressors then improved and after prolonged hospitalization discharge to rehab yesterday was supposed to get to his appointment with her oncologist on 03/21 however looks like patient got deteriorated and sent back where he looks very pale and lethargic and obtunded and unresponsive Family have discussed the case with oncology team and they required in hospice care. Ex- Radha at bedside and she told me that or family member including his sister Celina are in agreement with hospice care However patient prognosis is extremely poor given his clinical complex condition and recurrent infection and recurrent hospitalization with multiple problems despite several treatment attempts 03/18/2022 Patient is up tended, he does not answer question, he does not open eyes and nonverbal. He is very weak and lethargic However he does not look in distress or pain Hospice team's recommended for him by oncology and pulmonary team. Also family are considering hospice team, Already immigration case worker was consulted for hospice care. No family at bedside 03/19/2022 Patient evaluated today resting in bed. He is pale and weak however he is alert x 3 and oriented. He did agree to hospice care. He is currently requesting tums for an upset stomach. He is pending meeting with family and hospice today. Hgb today 9.9, white count stable at 10.0. Sodium 137, potassium 3.4. Procalcitonin level elevated at 0.58. Blood pressure is low normal and blood pressure medication will be held. Pulmonary is following. 03/20/2022 Discussed with patient today plan of care and he states he is wanting hospice at this time. Hospice had attempted to meet with him this morning and he had sent them out of the room. Spoke with patients jelena patiño who is the POA and she states that other family members and Hospice are supposed to be having a meeting with the patient today. Otherwise, he feels tired, states his nausea has resolved. He is alert x 3 today. Potassium 3.0 today which will be replaced. Blood pressure 100/63. Further recommendations pending. Review of Systems Constitutional: Reports fatigue denied any fever. Cardio vascular: denied any chest pain, palpitations Gastrointestinal: denied any nausea, vomiting, diarrhea Pulmonary: Denied any shortness of breath cough Neurologic denied any new focal deficits All inpatient medications were reviewed and appropriate changes in these medications as dictated in the interval history and assessment and plan. PHYSICAL EXAMINATION: GENERAL: The patient is alert and oriented x3, not in any acute distress. lethargic. Well developed, well nourished. HEENT: Pupils are round and equally reacting to light. EOMI. No scleral icterus. No conjunctival pallor. Normocephalic, atraumatic. No pharyngeal erythema. No thyromegaly. CARDIOVASCULAR: S1 and S2 present. No murmurs, rubs, or gallops. PULMONARY: Chest is clear to auscultation, no wheezing or crackles. ABDOMEN: Soft, nontender, nondistended, normoactive bowel sounds. No palpable organomegaly. MUSCULOSKELETAL: No joint swelling or deformity. EXTREMITIES: No cyanosis, clubbing, or pedal edema. NEUROLOGICAL: Gross neurological examination did not reveal any focal deficits. SKIN: No rashes. Assessment and Plan Assessment Deconditioning and decline in health performance Hyponatremia, hypovolemic from poor oral intake, improved with IV fluids Recent hospitalization for left lower lobe pneumonia with sepsis, troponin leak, and acute anemia requiring blood transusion, vasopressors and ICU support. Currently negative troponin, hemoglobin stable, no evidence for pneumonia. Recent history of ESBL E. Coli UTI Recent diagnosis metastatic adenocarcinoma of right lung Brain metastasis post recent craniotomy with resection at [facility] History of seizure activity Recent left humerus fracture with no surgical repair has been using sling History of COPD History gastroesophageal reflux disease History of vocal cord paralysis Hypertension history currently normotensive Anemia of chronic disease History of chronic alcohol use Chronic tobacco use GI Prophylaxis DVT Prophylaxis No Code Plan Hospice meeting today with patient and family Continue supportive care Further recommendations pending Antibiotics and steroids have been discontinued by pulmonary team Hold blood pressure medications potassium will be supplemented Discharge once arrangements have been with case management and hospice. The impression and plan of care has been dictated by Amarilis James Nurse Practitioner as directed. Dr. Major MD I have performed a history and physical examination and medical decision making of this patient, discussed the same with the dictator, and agree with the dictators assessment and plan as written, documented as a scribe. Based on total visit time, I have performed more than 50% of this visit. Objective - Vital Signs Vital signs: Vital Signs Temp 98.3 F 03/20/22 07:10 Pulse 79 03/20/22 07:10 Resp 18 03/20/22 07:10 BP 100/63 03/20/22 07:10 Pulse Ox 97 03/20/22 07:10 FiO2 Intake & Output 03/19/22 03/20/22 03/20/22 18:59 06:59 18:59 Output Total 650 700 Balance -650 -700 Output: Urine 650 700 Other: Voiding Method Incontinent Incontinent External Catheter External Catheter # Voids 2 - Labs CBC & Chem 7: 03/17/22 05:29 03/20/22 09:40 Labs: Abnormal Lab Results - Last 24 Hours (Table) 03/20/22 Range/Units 09:40 Potassium 3.0 L (3.5-5.1) mmol/L Chloride 112 H (98-107) mmol/L Creatinine 0.45 L (0.66-1.25) mg/dL Calcium 7.9 L (8.4-10.2) mg/dL Microbiology - Last 24 Hours (Table) 03/17/22 00:30 Blood Culture - Preliminary Blood No Growth after 72 hours 03/17/22 00:45 Blood Culture - Preliminary Blood No Growth after 72 hours Assessment and Plan Time with Patient: Less than 30
[2022-03-20] MEDS: POTASSIUM CHLORIDE ER 20 MEQ TAB.ER PO SCH ×3 (16:12→16:25)
[2022-03-20] MEDS ORDERED: LORazepam 1 MG/0.5 ML VIAL IV PRN (16:27)
[2022-03-21] MEDS: HEPARIN SODIUM,PORCINE/PF 5,000 UNIT/0.5 ML SYRINGE SQ SCH ×2 (01:54→10:10)
[2022-03-21 07:52] VITALS: BP 116/76; PULSE 82; RESP 16; TEMP 98.4
--- NOTE | 2022-03-21 08:43 | P.PN ---
Subjective Progress Note Date: 03/21/22 Principal diagnosis: Lung cancer. 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 No treatment initiated. He was hospitalized again earlier this month with ESBL E. coli urinary tract infection. He was just discharged to an extended care facility 03/15/2022 and brought back yesterday 03/16/2022 with appearance of shortness of breath and lower oxygen. He was initially placed on BiPAP then transitioned to liters nasal cannula where he was saturating in the high 90s up to 100%. He was afebrile. Hemodynamically stable. Chest x-ray continued to show chronic emphysematous changes with bibasilar infiltrate/atelectasis. Right upper lobe mass/neoplasm redemonstrated. No change compared to previous chest x-ray. White count 10.0. Hemoglobin 9.1. Sodium 137. Potassium 3.4. BUN 10. Creatinine 0.57. Glucose 86. Alvarez virus not detected. Influenza screen negative. He is in consultation on the regular medical floor. He is resting comfortably in bed. Maintaining O2 saturations at 98% on 2 L/m per nasal cannu la. He's been initiated on Zosyn and azithromycin along with bronchodilators. Heparin for DVT prophylaxis. Normal saline at 90 miles per hour. Reevaluated today on 03/18/22, patient is basically about the same, he is on 2 L nasal cannula, O2 sat is 99%. Patient looks extremely frail, weak, and chronically ill. My recommendations point is to seriously consider hospice on this patient. Apparently he was seen by oncology and did not feel that the patient is a candidate for any chemotherapy. And they are also recommending hospice. Progress note dated 03/19/2022. The patient's currently on room air. Is not demonstrating or mentioning any issues with breathing. The patient was apparently admitted with a diagnosis of possible pneumonia. He does have a history of adenocarcinoma, with metastases to the brain. Patient has undergone a craniotomy. He was recently inpatient, discharged to a local snf, and readmitted. No new labs today. Blood cultures are negative. The patient is currently on subcu heparin, updraft treatments, lisinopril, Solu-Medrol, morphine, and Zosyn. Progress note dated 03/18/2022. Currently, the patient's very lethargic and somnolent. He is on room air. Updrafts to be discontinued. Apparently, he will be meeting with hospice today, along with family members. He has a history of adenocarcinoma of the lung, with metastasis to the brain. No new laboratory data today. No new x-rays today. Blood cultures are negative. Progress note dated 03/21/2022. The patient is currently the same as it was yesterday. He is on room air. No IV fluids. Updrafts were discontinued. No new labs today. Labs from yesterday were reviewed. I believe the plan is to send the patient to [facility], with hospice involvement. All unnecessary medications were discontinued. He has a history of metastatic adenocarcinoma of the lung, with metastasis to the brain. Objective - Vital Signs Vital signs: Vital Signs Temp 98.4 F 03/21/22 07:19 Pulse 82 03/21/22 07:19 Resp 16 03/21/22 07:19 BP 116/76 03/21/22 07:19 Pulse Ox 99 03/21/22 07:19 FiO2 Intake & Output 03/20/22 03/21/22 03/21/22 18:59 06:59 18:59 Intake Total 118 Output Total 1100 400 225 Balance -982 -400 -225 Intake: Oral 118 Output: Urine 1100 400 225 Other: Voiding Method External Catheter External Catheter - Exam No acute distress, lethargic. No respiratory distress. The patient appears chronically ill. HEENT examination is grossly unremarkable. Neck supple. Full range of motion. No adenopathy thyromegaly or neck vein distention. Cardiovascular examination reveals regular rhythm rate. S1-S2 normal. No S3 or S4. No discernible murmur noted. Heart rate 82 bpm. Lungs reveal mostly clear breath sounds. Room air saturation 99 %. Breath sounds are equal bilaterally. Abdomen soft bowel sounds are heard. No masses or tenderness. Extremities are intact. No cyanosis clubbing or edema. Skin is without rash or lesion. Neurologic examination is brief but nonfocal. Patient is lethargic this morning. - Labs CBC & Chem 7: 03/17/22 05:29 03/20/22 09:40 Labs: Abnormal Lab Results - Last 24 Hours (Table) 03/20/22 Range/Units 09:40 Potassium 3.0 L (3.5-5.1) mmol/L Chloride 112 H (98-107) mmol/L Creatinine 0.45 L (0.66-1.25) mg/dL Calcium 7.9 L (8.4-10.2) mg/dL Microbiology - Last 24 Hours (Table) 03/17/22 00:45 Blood Culture - Preliminary Blood No Growth after 96 hours 03/17/22 00:30 Blood Culture - Preliminary Blood No Growth after 96 hours Assessment and Plan Assessment: Metastatic adenocarcinoma, with metastasis to the brain, status post craniotomy. Chronic obstructive pulmonary disease. Recent history of UTI secondary to ESBL Escherichia coli. History of coronavirus infection, September 2021. History of chronic alcohol abuse. Benign essential hypertension. History of chronic vocal cord paralysis. Medical debility. Recent left shoulder fracture. Plan: Plan dated 03/19/2022. The patient is a DO NOT RESUSCITATE. That is appropriate. I would discontinue the corticosteroids. We'll place a consult for hospice. No additional recommendations are made. Prognosis is very poor. The patient does not have pneumonia. We will discontinue the antibiotic at this time. Plan dated 03/20/2022. The patient is a DO NOT RESUSCITATE patient. The family and the patient will be meeting with hospice today. Updrafts were discontinued. His prognosis is very poor. His health is declining significantly in the last 4-6 weeks. Antibiotics were discontinued. The patient does not have pneumonia. Updrafts are disco ntinued. Plan dated 03/21/2022. The patient apparently will become a hospitalist patient when he is transferred over to [facility]. He is currently a DO NOT RESUSCITATE patient. He's not receiving any IV fluids. He is currently on room air. No new labs today. All unnecessary medications were discontinued. His overall prognosis is obviously very poor. Time with Patient: Less than 30
--- NOTE | 2022-03-21 10:35 | P.DS ---
Providers Date of admission: 03/16/22 23:43 Attending physician: Corwin Santoyo Consults: 03/16/22 23:43 Consult Physician Routine Consulting Provider: Virginia Wild Consult Reason/Comments: stage IV lung cancer Do you want consulting provider notified?: Yes, Notify in am 03/16/22 23:46 Consult Physician Routine Consulting Provider: Jhonatan Thompson Consult Reason/Comments: pneumonia, copd, lung cancer Do you want consulting provider notified?: Yes, Notify in am Primary care physician: See Bearden [facility] [place] Course: Final Diagnosis Deconditioning and decline in health performance Hyponatremia, hypovolemic from poor oral intake, improved with IV fluids Recent hospitalization for left lower lobe pneumonia with sepsis, troponin leak, and acute anemia requiring blood transusion, vasopressors and ICU support. Currently negative troponin, hemoglobin stable, no evidence for pneumonia. Recent history of ESBL E. Coli UTI Recent diagnosis metastatic adenocarcinoma of right lung Brain metastasis post recent craniotomy with resection at [facility] History of seizure activity Recent left humerus fracture with no surgical repair has been using sling History of COPD History gastroesophageal reflux disease History of vocal cord paralysis Hypertension history currently normotensive Anemia of chronic disease History of chronic alcohol use Chronic tobacco use GI Prophylaxis DVT Prophylaxis No Code Discharge Disposition Recommendation has been made for hospice services and after meeting with hospice patient is agreeing to sign on with hospice care. Family met with hospice yesterday. Plan for discharge back to [facility] today with hospice services in place. Hospital Course This is a 67-year-old male with medical history significant for recent diagnosis of metastatic adenocarcinoma of the right lung he is status post craniotomy at [facility], hypertension, gastroesophageal reflux disease, COPD, paralyzed vocal cords, chronic nicotine use, chronic alcohol use history, recent left humerus fracture with no surgical intervention. Patient's been at [facility] for subacute rehab since his last 2 prior hospital admissions. He has been continuing workup for new diagnosis of right lung cancer and was found to have brain metastasis secondary to seizure activity and underwent recent craniotomy at outside hospital. He was discharged from [facility] back to [facility]. Patient was then brought to [facility] on 03/06/2022 for sepsis and septic shock for a pneumonia he did require ICU treatment and vasopressors and was discharged back to [facility] on 03/15/2022. He has had poor functionality and deconditioning with a decline in performance and has had multiple hospital admissions recently. He was evaluated by oncology services and hospice was recommended. patient would be a poor candidate for chemotherapy due to his overall health condition and chronic comorbidities. Pulmonary services has also evaluated patient this admission and recommended for hospice. This was discussed with patient and family. Patient is alert and oriented 3 currently he is fatigued and states that he is tired of going back and forth from rehab to hospital and does not wish for any further aggressive measures. He has agreed to hospice services at this time. He does have poor overall prognosis and poor functionality. Family is also agreeing with hospice. The plan is for discharge back to [facility] today with hospice services. 03/21/2022 Patient did present with hyponatremia which has resolved is currently 141, he diminished but also with hyperkalemia 5.6, which is resolved and he did receive potassium limitation is his potassium was found to be 3.0 yesterday. This is also secondary oral intake and dehydration as patient has had a decline in health performance and deconditioning with poor oral intake. Current blood pressure 116/76, temp 98.4, heart rate 82. 99% room air. Patient is evaluated resting in bed comfortably, he does state he feels cold. S1 S2 auscultated, raymon gs are clear, he is on room air. He is fatigued today, wants to sleep. Will be discharged with hospice to [facility] today. Thank you for allowing us to participate in the care of this patient The impression and plan of care has been dictated by Amarilis James, Nurse Practitioner as directed. Dr. Major MD I have performed a history and physical examination and medical decision making of this patient, discussed the same with the dictator, and agree with the dictators assessment and plan as written, documented as a scribe. Based on total visit time, I have performed more than 50% of this visit. Patient Condition at Discharge: Fair Plan - Discharge Summary New Discharge Prescriptions: Continue Omeprazole 20 mg PO DAILY@0600 levETIRAcetam [Keppra] 500 mg PO Q12HR@0900,2100 Calcium Carbonate [Tums] 500 mg PO Q4H PRN PRN Reason: acid reflux polyethylene glycoL 3350 [Miralax] 17 gm PO DAILY@0900 PRN #0 PRN Reason: Constipation Discharge Medication List Calcium Carbonate [Tums] 500 mg PO Q4H PRN 03/06/22 [History] Omeprazole 20 mg PO DAILY@0600 03/06/22 [History] levETIRAcetam [Keppra] 500 mg PO Q12HR@0900,2100 03/06/22 [History] polyethylene glycoL 3350 [Miralax] 17 gm PO DAILY@0900 PRN #0 03/14/22 [Rx] Follow up Appointment(s)/Referral(s): See Plata III, MD [Primary Care Provider] - 1-2 days Activity/Diet/Wound Care/Special Instructions: Discharge to [facility] with hospice Discharge Disposition: TRANSFER TO SNF/ECF
[2022-03-21] MEDS ORDERED: levETIRAcetam 500 MG TAB PO SCH (21:00)
== END 2022-03-21 12:29 | DRG 190 ==
LOC: EC 21:01 → 4SSUR 23:43 → 6NMEDSUR 03-17 03:17
PROVIDERS: ADMIT Hospitalist; ATTEND Hospitalist
DX: J44.1 Chronic obstructive pulmonary disease with (acute) exacerbation (principal); J96.01 Acute respiratory failure with hypoxia; C34.11 Malignant neoplasm of upper lobe, right bronchus or lung; C79.31 Secondary malignant neoplasm of brain; S42.302A Unspecified fracture of shaft of humerus, left arm, initial encounter for closed fracture; E87.1 Hypo-osmolality and hyponatremia; R53.81 Other malaise; E86.0 Dehydration; F17.200 Nicotine dependence, unspecified, uncomplicated; Z20.822 Contact with and (suspected) exposure to COVID-19; I10 Essential (primary) hypertension; Z66 Do not resuscitate; E87.5 Hyperkalemia; D63.8 Anemia in other chronic diseases classified elsewhere; K21.9 Gastro-esophageal reflux disease without esophagitis; J38.00 Paralysis of vocal cords and larynx, unspecified; Z85.828 Personal history of other malignant neoplasm of skin; Z51.5 Encounter for palliative care; Z86.16 Personal history of COVID-19; Z79.899 Other long term (current) drug therapy
CPT/HCPCS: 36415; 71045; 80048; 80053; 82803; 83605; 84132; 84145; 84484; 85025; 85610; 85730; 87040; 87502; 87635; 93005; 94640; 96365; 96367; 96375; 99285